=== PATIENT | female | born 2000 | race Caucasian/White ===

== ENCOUNTER 2023-07-15 13:23 | Day surgery (SDC) | payer OTHER, SELFPAY ==
--- NOTE | 2023-07-15 | MR_ITS ---
[address] [address] Patient Name: MARILEE MACKENZIE MRN: [id number] date: 2000 Sex: F Assigned Patient Location: MRI Current Patient Location: Accession/Order Number: [id number] Exam Date: 07/15/2023 14:40 Report Date: 07/15/2023 15:42 At the request of: LOUISE LEMOS Procedure: MR hip RT w con EXAMINATION: MR hip RT w con HISTORY: Right Hip Dysplasia, Right Hip Pain COMPARISON: ETT/ TECHNIQUE: A comprehensive examination was performed utilizing a variety of imaging planes and imaging parameters to optimize visualization of suspected pathology. Images were performed without contrast. FINDINGS: FEMORAL HEAD: Normal. No AVN, fracture, or significant arthropathy. ACETABULUM: Normal. No fracture or significant arthropathy. OTHER BONES: Normal appearance of the visualized portion of the pelvis. LABRUM: Normal appearance for a patient in this age group, with no visible tear. EFFUSIONS: None. No synovitis or loose bodies. BURSAE: Normal. No evidence of iliopsoas or trochanteric bursitis. TENDONS: Normal. Normal gluteus tendons, iliopsoas tendon, and hamstring origin. MUSCLES: Normal. No tear or strain. No inappropriate atrophy. OTHER: Negative. MR/MR hip RT w con IMPRESSION: No acute abnormality No evidence of developmental dysplasia Electronically authenticated by: GAGE LYNCH Date: 07/15/2023 15:42
--- NOTE | 2023-07-15 13:35 | FL_ITS ---
[address] [address] Patient Name: MARILEE MACKENZIE MRN: [id number] date: 2000 Sex: F Assigned Patient Location: MRI Current Patient Location: MRI Accession/Order Number: [id number] Exam Date: 07/15/2023 13:52 Report Date: 07/15/2023 15:03 At the request of: LOUISE LEMOS Procedure: FL arthrogram hip EXAMINATION: FL arthrogram hip, FL guided needle placement HISTORY: Right hip pain. Pre-MRI COMPARISON: No relevant comparison available. TECHNIQUE: An arthrogram was performed under fluoroscopic guidance using non-ionic contrast material in the usual sterile manner after obtaining informed consent. Standard level fluoroscopic mode of operation utilized. FINDINGS: JOINT: Right hip NEEDLE: 25 gauge, 5.5 spinal needle. MEDICATION: 10 mL injected into joint space consisting of a mixture of 10 cc normal saline, 5 cc Omnipaque-300, 5 cc 1% Xylocaine, and 0.2 cc Dotarem. 40 mg Kenalog TECHNIQUE: Anterior approach under fluoroscopic guidance. CLINICAL: 8 out of 10 before the injection. 4 out of 10 following the injection COMPLICATIONS: None. BONES: No fracture, significant osseous degenerative changes, or visible bone lesion. BURSA: No visible extension of contrast into the subacromial-subdeltoid bursa at this time. OTHER: Negative. FL/FL arthrogram hip IMPRESSION: 1. Technically successful arthrogram without complication. 2. Please see separate MRI report. Electronically authenticated by: GAGE LYNCH Date: 07/15/2023 15:03
--- NOTE | 2023-07-15 13:35 | FL_ITS ---
[address] [address] Patient Name: MARILEE MACKENZIE MRN: [id number] date: 2000 Sex: F Assigned Patient Location: MRI Current Patient Location: MRI Accession/Order Number: [id number] Exam Date: 07/15/2023 13:52 Report Date: 07/15/2023 15:03 At the request of: LOUISE LEMOS Procedure: FL guided needle placement EXAMINATION: FL arthrogram hip, FL guided needle placement HISTORY: Right hip pain. Pre-MRI COMPARISON: No relevant comparison available. TECHNIQUE: An arthrogram was performed under fluoroscopic guidance using non-ionic contrast material in the usual sterile manner after obtaining informed consent. Standard level fluoroscopic mode of operation utilized. FINDINGS: JOINT: Right hip NEEDLE: 25 gauge, 5.5 spinal needle. MEDICATION: 10 mL injected into joint space consisting of a mixture of 10 cc normal saline, 5 cc Omnipaque-300, 5 cc 1% Xylocaine, and 0.2 cc Dotarem. 40 mg Kenalog TECHNIQUE: Anterior approach under fluoroscopic guidance. CLINICAL: 8 out of 10 before the injection. 4 out of 10 following the injection COMPLICATIONS: None. BONES: No fracture, significant osseous degenerative changes, or visible bone lesion. BURSA: No visible extension of contrast into the subacromial-subdeltoid bursa at this time. OTHER: Negative. FL/FL guided needle placement IMPRESSION: 1. Technically successful arthrogram without complication. 2. Please see separate MRI report. Electronically authenticated by: GAGE LYNCH Date: 07/15/2023 15:03
[2023-07-15] MEDS: TRIAMCINOLONE ACETONIDE 40 MG/ML VIAL INJ (14:30)
[2023-07-15] MEDS: LIDOCAINE HCL 20 ML, SODIUM BICARBONATE 2 MEQ INJ (14:40)
--- NOTE | 2023-07-15 15:23 | SUR.PREOP ---
07/09/23 Pt instructed on procedure, date, time, and prep.
== END 2023-07-15 14:45 | disposition home or self-care (01) ==
PROVIDERS: Radiology Diagnostic Radiology; PCP Family Medicine; Visit Provider Family Medicine
DX: M25.551 Pain in right hip (principal)
CPT/HCPCS: 27093; 73722; 77002; A9575; Q9967

== ENCOUNTER 2023-07-19 10:58 | Outpatient (OUT) | payer OTHER, SELFPAY ==
--- NOTE | 2023-07-19 11:00 | NM_ITS ---
The [address] [address] Patient Name: MARILEE MACKENZIE MRN: [id number] date: 2000 Sex: F Assigned Patient Location: [place] Current Patient Location: [place] Accession/Order Number: [id number] Exam Date: 07/19/2023 11:00 Report Date: 07/19/2023 14:58 At the request of: LOUISE LEMOS Procedure: WA bone scan whole body EXAMINATION: WA bone scan whole body HISTORY: RIGHT HIP PAIN, BULGING LUMBAR DISC COMPARISON: No relevant comparison available. TECHNIQUE: After obtaining the patient's consent, 25.0 mCi Technetium 99m MDP was injected intravenously. Images were obtained approximately two hours later. FINDINGS: ABNORMALITIES: Abnormal radiotracer activity within the distal left tibia involving the plafond, and likely within the talar dome. OTHER: Negative. WA/WA bone scan whole body IMPRESSION: 1. No abnormal radiotracer involving the right hip. 2. Abnormal radiotracer within left ankle compatible with degenerative changes, also described on prior MRI study. Electronically authenticated by: ARTEM WILLS Date: 07/19/2023 14:58
--- OUTSIDE RECORDS SUMMARY | 2023-07-19 11:02 | XMS_ITS | CCD ---
Author Organization [facility] Care Team Providers Care Braid Maker Name Role Phone Louise Mccullough Primary Care Provider LOUISE MCCULLOUGH Primary Care Unavailable Louise Mccullough Primary Care Provider Louise Mccullough MD Primary Care Provider Louise Mccullough MD Primary Care Provider Louise Mccullough MD Primary Care Provider Louise Mccullough MD Primary Care Provider Louise Mccullough MD Primary Care Provider Louise Mccullough MD Primary Care Provider Louise Mccullough MD Primary Care Provider LOUISE MCCULLOUGH Primary Care Unavailable SHARONA HOFFMAN Referring Unavailable RK RENDON Attending Unavailab LOUISE Collazo Referring Unavailable LOUISE MCCULLOUGH Primary Care Unavailable LOUISE MCCULLOUGH Primary Care Unavailable SHARONA HOFFMAN Referring Unavailable SHARONA HOFFMAN Attending Unavailable Louise Mccullough MD Primary Care Provider DR LOUISE MUSTAFA Primary Care Unavailable JOELY ., DR GIL Consulting Unavailable HOY ., DR GIL Admitting Unavailable HOY ., DR GIL Attending Unavailable GAGE JACK Consulting Unavailable JOELY ., DR GIL Primary Care Unavailable HOY ., DR GIL Consulting Unavailable HOY ., DR GIL Admitting Unavailable HOY ., DR GIL Attending Unavailable DR GAGE LYNCH V Consulting Unavailable AMINTA ., DR GIL Primary Care Unavailable HOY ., DR GIL Admitting Unavailable HOY ., DR GIL Attending Unavailable HOY ., DR GIL Consulting Unavailable HOY ., DR GIL Admitting Unavailable HOY ., DR GIL Attending Unavailable HOY ., DR GIL Consulting Unavailable HOY ., DR GIL Primary Care Unavailable HOY ., DR GIL Admitting Unavailable HOY ., DR GIL Attending Unavailable HOY ., DR GIL Consulting Unavailable HOY ., DR GIL Primary Care Unavailable ELMA, DR ARTEM Cole Consulting Unavailable HOY ., DR GIL Admitting Unavailable HOY ., DR GIL Attending Unavailable HOY ., DR GIL Consulting Unavailable HOY ., DR GIL Primary Care Unavailable Refugio ARIAS, Larry Gloria Referring Unavailable Matheus Hernandez, Jackie Briggs Attending Unavailable Louise Mccullough MD Primary [facility] Unavailisak Payan PA-C, Kayleigh Stoner Attending Unavacrista Mccullough [facility], [facility] [place] [facility] Unavaila diana Mccullough MD, [facility] [place] [facility] Unavaila diana Hernandez, Jackie Briggs Attending Unavailable Louise Mccullough MD [facility] Unavaila diana Hernandez, Jackie Briggs Attending Unavailable Louise Mccullough MD [facility] Unavaila diana Hernandez, Jackie Briggs Attending Unavailable Larry Huff MD, Chi Attending Unavailable Louise Mccullough MD [facility] Unavailisak Huff MD, Larry Gloria Attending Unavailable Louise Mccullough MD Primary [facility] Unavailisak Huff MD, Larry Gloria Referring Unavailable Refugio ARIAS, Larry lGoria Attending Unavailable Louise Mccullough MD [facility] Unavailisak Huff MD, Larry Gloria Referring Unavailable Louise Mccullough MD [facility] UnavailLarry Trivedi MD, Chi Attending Unavailable HOY, LOUISE M Primary Care Unavailable HOY, LOUISE M Referring Unavailable HOY, LOUISE M Primary Care Unavailable HOY, LOUISE M Referring Unavailable HOY, LOUISE M Primary Care Unavailable HOY, LOUISE M Referring Unavailable HOY, LOUISE M Primary Care Unavailable HOY, LOUISE M Referring Unavailable HOY, LOUISE M Primary Care Unavailable HOY, LOUISE M Referring Unavailable HOY, LOUISE M Primary Care Unavailable HOY, LOUISE M Primary Care Unavailable HOY, LOUISE M Referring Unavailable HOY, LOUISE M Primary Care Unavailable HOY, LOUISE M Referring Unavailable Louise Mccullough MD Primary Care Provider [phone] Allergies Allergy Classification Reported Allergen(s) Allergy Type Date of Onset Reaction(s) Facility Anti-Epileptic Agents (5 sources) topiramate Drug Allergy 06-27-19 16 [facility] (16 sources) topiramate Drug Allergy 06-27-19 16 [facility] [place], [place] (3 sources) Hydrocortisone / Neomycin / Polymyxin B; Translations: [NEOMYCIN-POLYMYXI N-HC] Drug Allergy 03-11-20 13 Other: See Comments [facility] (1 source) topiramate; Translations: [Topamax] Drug Allergy [facility] (1 source) smoke; Translations: [smoke] Propensity to adverse reactions (disorder) [facility] (1 source) Grass; Translations: [Grass] Propensity to adverse reactions (disorder) [facility] Medications Current Medications Medication Drug Class(es) Dates Sig (Normalized) Sig (Original) amoxicillin 875 mg / clavulanate 125 mg oral tablet (1 source) Penicillin-class Antibacterial Start: 10-07-2021 End: 10-14-2021 take 1 tablet by mouth twice daily amoxicillin-clav ulanate (AUGMENTIN) 875-125 MG per tablet Take 1 tablet by mouth 2 times daily for 7 days 14 tablet 0 10/07/2021 10/14/2021 Active Completed/Discontinued Medications Medication Drug Class(es) Dates Sig (Normalized) Sig (Original) amLODIPine 5 mg oral tablet (1 source) Dihydropyridine Calcium Channel Nicki End: 06-13-2020 take 1 tablet by mouth once daily amLODIPine (NORVASC) 5 MG tablet Take 5 mg by mouth daily 0 06/13/2020 Discontinued (LIST CLEANUP) atorvastatin 80 mg oral tablet (1 source) HMG-CoA Reductase Inhibitor End: 06-13-2020 take 1 tablet by mouth once daily atorvastatin (LIPITOR) 80 MG tablet Take 80 mg by mouth daily 0 06/13/2020 Discontinued (LIST CLEANUP) cefdinir 300 mg oral capsule (1 source) Cephalosporin Antibacterial End: 10-07-2021 take 1 capsule by mouth twice daily cefdinir (OMNICEF) 300 MG capsule Take 300 mg by mouth 2 times daily 0 10/07/2021 Discontinued (LIST CLEANUP) celecoxib 200 mg oral capsule (4 sources) Nonsteroidal Anti-inflammatory Drug End: 06-13-2020 take 1 capsule by mouth once daily celecoxib (CELEBREX) 200 MG capsule Take 200 mg by mouth daily 0 06/13/2020 Discontinued (LIST CLEANUP) cholecalciferol 42637 unt oral capsule (5 sources) Vitamin D End: 06-13-2020 Cholecalciferol (VITAMIN D3) 96891 UNITS CAPS Take 2,000 capsules by mouth once a week 0 06/13/2020 Discontinued (Therapy completed) End: 06-13-2020 take 1 capsule by mouth once daily Cholecalciferol (VITAMIN D3) 50 MCG (2000 UT) CAPS Take 2,000 Units by mouth daily 0 06/13/2020 Discontinued (LIST CLEANUP) cyclobenzaprine hydrochloride 10 mg oral tablet (2 sources) Muscle Relaxant Start: 06-13-2020 End: 06-23-2020 cyclobenzaprine (FLEXERIL) tablet 10 mg DULoxetine 60 mg delayed release oral capsule (2 sources) Serotonin and Norepinephrine Reuptake Inhibitor Start: 12-18-2021 take 1 capsule by mouth once daily DULoxetine (CYMBALTA) 60 mg capsule Take 60 mg by mouth once daily. 0 12/18/2021 Active Comment on above: Take 60 mg by mouth once daily. EPINEPHrine 0.01 mg/ml / lidocaine hydrochloride 10 mg/ml injectable solution (1 source) Antiarrhythmic, alpha-Adrenergic Agonist, beta-Adrenergic Agonist, Catecholamine, Amide Local Anesthetic Start: 10-07-2021 End: 10-07-2021 lidocaine-EPINEPHrine 1 %-1:[id number] injection 20 mL gabapentin 400 mg oral capsule (1 source) Anti-epileptic Agent End: 06-13-2020 take 2 capsules by mouth twice daily gabapentin (NEURONTIN) 400 MG capsule Take 800 mg by mouth 2 times daily. 0 06/13/2020 Discontinued (LIST CLEANUP) guaiFENesin 20 mg/ml oral solution (1 source) End: 06-13-2020 take 200 mg by mouth three times daily as needed for cough guaiFENesin (ROBITUSSIN) 100 MG/5ML syrup Take 200 mg by mouth 3 times daily as needed for Cough 0 06/13/2020 Discontinued (LIST CLEANUP) hydroCHLOROthiazide 12.5 mg oral capsule (1 source) Thiazide Diuretic End: 06-13-2020 take 1 capsule by mouth once daily hydroCHLOROthiazide (MICROZIDE) 12.5 MG capsule Take 12.5 mg by mouth daily 0 06/13/2020 Discontinued ibuprofen 800 mg oral tablet (5 sources) Nonsteroidal Anti-inflammatory Drug Start: 01-05-2016 End: 06-13-2020 take 1 tablet by mouth every eight hours as needed for pain ibuprofen (ADVIL;MOTRIN) 800 MG tablet Take 1 tablet by mouth every 8 hours as needed for Pain 90 tablet 3 01/05/2016 06/13/2020 Discontinued (Therapy completed) End: 06-13-2020 take 1 tablet by mouth every six hours as needed for pain ibuprofen (ADVIL;MOTRIN) 600 MG tablet Take 600 mg by mouth every 6 hours as needed for Pain 0 06/13/2020 Discontinued (LIST CLEANUP) levoFLOXacin 500 mg oral tablet (1 source) Quinolone Antimicrobial End: 10-07-2021 take 1 tablet by mouth once daily levoFLOXacin (LEVAQUIN) 500 MG tablet Take 500 mg by mouth daily 0 10/07/2021 Discontinued (LIST CLEANUP) lidocaine 25 mg/ml / prilocaine 25 mg/ml topical cream (1 source) Antiarrhythmic, Amide Local Anesthetic Start: 10-07-2021 End: 10-07-2021 lidocaine-prilocai ne (EMLA) cream Start: 10-07-2021 End: 10-07-2021 lidocaine-prilocaine (EMLA) cream 1 ml LORazepam 2 mg/ml injection (2 sources) Benzodiazepine Start: 10-07-2021 End: 10-07-2021 LORazepam (ATIVAN) injection 0.5 mg metFORMIN hydrochloride 500 mg oral tablet (4 sources) Biguanide Start: 03-05-2013 METFORMIN 500 mg tablet End: 06-13-2020 take 1 tablet by mouth twice daily at mealtime metFORMIN (GLUCOPHAGE) 1000 MG tablet Take 1,000 mg by mouth 2 times daily (with meals) 0 06/13/2020 Discontinued (LIST CLEANUP) Sodium Chloride (2 sources) Start: 10-07-2021 End: 10-07-2021 0.9 % sodium chloride IV arun us 2,586 mL Start: 10-07-2021 0.9 % sodium c hloride infusion 60 actuat tiotropium 0.0025 mg/actuat metered dose inhaler (1 source) Anticholinergic End: 06-13-2020 take 2 puff(s) by inhalation once daily tiotropium (SPIRIVA RESPIMAT) 2.5 MCG/ACT AERS inhaler Inhale 2 puffs into the lungs daily 0 06/13/2020 Discontinued (LIST CLEANUP) vancomycin (VANCOCIN) 1,500 mg in dextrose 5 % 500 mL IVPB (1 source) Start: 10-07-2021 End: 10-07-2021 vancomycin (VANCOCIN) 1,500 mg in dextrose 5 % 500 mL IVPB Problems Active Problems Problem Classification Problem Date Documented Date Episodic/Chronic Attention-deficit, conduct, and disruptive behavior disorders (2 sources) Attention-deficit hyperactivity disorder, unspecified type; Translations: [Attention-deficit hyperactivity disorder, unspecified type] Onset: 06-27-2023 Chronic Chronic kidney disease (1 source) Chronic kidney disease, unspecified; Translations: [CHRONIC KIDNEY DISEASE UNSPECIFIED] Onset: 01-16-2022 Chronic Deficiency and other anemia (3 sources) Anemia, unspecified; Translations: [ANEMIA UNSPECIFIED] Onset: 01-16-2022 Episodic Diseases of white blood cells (1 source) Leukocytosis; Translations: [Elevated white blood cell count, unspecified] Chronic Nutritional deficiencies (2 sources) Vitamin D deficiency, unspecified; Translations: [Vitamin D deficiency, unspecified] Onset: 06-27-2023 Chronic Osteoarthritis (4 sources) Localized, secondary osteoarthritis of the ankle and/or foot; Translations: [Secondary osteoarthritis, left ankle and foot] Onset: 01-09-2023 Chronic Other acquired deformities (2 sources) Deformity of lower limb; Translations: [Other specified acquired deformities of unspecified lower leg] Onset: 03-09-2022 Episodic Other bone disease and musculoskeletal deformities (2 sources) Osteochondritis dissecans of left ankle; Translations: [Osteochondritis dissecans, left ankle and joints of left foot] Chronic Other bone disease and musculoskeletal deformities (1 source) Osteochondritis dissecans; Translations: [Osteochondritis dissecans, unspecified ankle and joints of foot] Chronic Other bone disease and musculoskeletal deformities (2 sources) Disorder of bone; Translations: [Disorder of bone, unspecified] Onset: 03-09-2022 Episodic Other congenital anomalies (2 sources) Congenital genu valgum of bilateral knees; Translations: [Congenital malformation of knee] Onset: 03-09-2022 Chronic Other connective tissue disease (2 sources) Peroneal tendinitis of right lower limb; Translations: [Peroneal tendinitis, right leg] Onset: 03-09-2022 Episodic Other diseases of bladder and urethra (4 sources) Bladder-neck obstruction; Translations: [BLADDER-NECK OBSTRUCTION] Onset: 10-27-2021 Chronic Other liver diseases (2 sources) Steatosis of liver; Translations: [Fatty (change of) liver, not elsewhere classified] Onset: 06-14-2013 06-14-2013 Chronic Other nervous system disorders (2 sources) Abnormal gait; Translations: [Unspecified abnormalities of gait and mobility] Onset: 03-09-2022 Episodic Other non-traumatic joint disorders (1 source) Chronic ankle pain; Translations: [Pain in right ankle and joints of right foot] Episodic Other non-traumatic joint disorders (2 sources) Ankle pain; Translations: [Pain in right ankle and joints of right foot] Onset: 03-09-2022 Episodic Other non-traumatic joint disorders (2 sources) Sinus tarsi syndrome of right ankle; Translations: [Pain in right ankle and joints of right foot] Onset: 03-09-2022 Episodic Other non-traumatic joint disorders (1 source) Pain of right wrist; Translations: [Pain in right wrist] Episodic Other non-traumatic joint disorders (3 sources) Pain in right hip; Translations: [Pain in right hip] Onset: 06-27-2023 Episodic Other nutritional; endocrine; and metabolic disorders (2 sources) Obesity, unspecified; Translations: [Obesity, unspecified] Onset: 06-27-2023 Chronic Residual codes; unclassified (1 source) H/O: miscarriage; Translations: [Personal history of other complications of , childbirth and the puerperium] Episodic Residual codes; unclassified (1 source) Pain; Translations: [Pain, unspecified] Episodic Residual codes; unclassified (2 sources) Insomnia, unspecified; Translations: [Insomnia, unspecified] Onset: 06-27-2023 Episodic Retinal detachments; defects; vascular occlusion; and retinopathy (2 sources) Retinal dystrophy; Translations: [Unspecified hereditary retinal dystrophy] Onset: 06-14-2013 06-14-2013 Chronic Skin and subcutaneous tissue infections (1 source) Abscess; Translations: [Cutaneous abscess, unspecified] Episodic Spondylosis; intervertebral disc disorders; other back problems (1 source) Low back pain; Translations: [Low back pain, unspecified back pain laterality, unspecified chronicity, unspecified whether sciatica present] Episodic Unclassified (1 source) Sprain of tibiofibular ligament of left ankle; Translations: [Sprain of tibiofibular ligament of left ankle, sequela] Unclassified (1 source) Strain of left trapezius muscle; Translations: [Trapezius strain, left, initial encounter] Past or Other Problems Problem Classification Problem Date Documented Date Episodic/Chronic Abdominal pain (1 source) Unspecified abdominal pain; Translations: [UNSPECIFIED ABDOMINAL PAIN] Onset: 11-25-2021 Episodic Genitourinary symptoms and ill-defined conditions (9 sources) Retention of urine; Translations: [Retention of urine, unspecified] Onset: 11-02-2021 Episodic Other connective tissue disease (3 sources) Pain in left foot; Translations: [Pain in left foot] Onset: 09-12-2022 Episodic Other non-traumatic joint disorders (1 source) Acute ankle pain; Translations: [Acute left ankle pain] Episodic Other non-traumatic joint disorders (6 sources) Pain in right ankle and joints of right foot; Translations: [Right ankle pain, unspecified chronicity] Onset: 01-16-2022 Episodic Other non-traumatic joint disorders (3 sources) Pain in left ankle and joints of left foot; Translations: [Pain in left ankle and joints of left foot] Onset: 09-12-2022 Episodic Other screening for suspected conditions (not mental disorders or infectious disease) (2 sources) Increased lactic acid level; Translations: [Other specified abnormal findings of blood chemistry] Onset: 01-22-2022 Episodic Otitis media and related conditions (20 sources) Otitis media; Translations: [Unspecified nonsuppurative otitis media, unspecified ear] Onset: 12-03-2013 12-03-2013 Episodic Urinary tract infections (7 sources) Urinary tract infectious disease; Translations: [Urinary tract infection, site not specified] Onset: 11-21-2021 Episodic Results Test Name Value Interpretation Reference Range Facility Cortisolon 06-28-2023 Cortisol 12.6 ug/dL Normal 2.5-19.5 [facility] Comment on above: Result Comment: Cortisol Reference Range: AM 6.0-18.4 PM 2.7-10.5 Performed By: #### V D25, FE, T4, GLYHGB, FT3, CORTI, LIPR, INSU ####[facility] [address] [place] [address] Lab Director: Bala Borges MD#### CP, TSH, CDP ####[address] [place], [place] [id number] Lab Director: Gage Barraza MD Hemoglobin A1Con 06-28-2023 Glucose [Mass/Vol] 100 mg/dL [facility] Comment on above: Result Comment: The ADA and AACC recommend providing the estimated average glucose result to permit better patient understanding of their HBA1c result. Performed By: #### V D25, FE, T4, GLYHGB, FT3, CORTI, LIPR, INSU ####[facility] [address] [place] [id number] Lab Director: Bala Borges MD#### CP, TSH, CDP ####[address] [place] [address] Lab Director: Gage Barraza MD HbA1c (Bld) [Mass fraction] 5.1 % Normal 4.0-6.0 [facility] Comment on above: Performed By: #### V D25, FE, T4, GLYHGB, FT3, CORTI, LIPR, INSU ####[id number] [place] [address] Lab Director: Bala Borges MD#### CP, TSH, CDP ####[address] , [place] [id number] Lab Director: Gage Barraza MD Insulinon 5 Insulin 18.2 mU/L [facility] Comment on above: Performed By: #### V D25, FE, T4, GLYHGB, FT3, CORTI, LIPR, INSU ####[facility] [address] [place] [address] Lab Director: Bala Borges MD#### CP, TSH, CDP ####[facility] [place], [place] [id number] [facility] Director: Gage Barraza MD Reference Range Normal [facility] Comment on above: Result Comment: Fast in.6-24.9 30 min: 20-112 60 min: 29-88 90 min: 26-84 120 min: 22-79 Performed By: #### V D25, FE, T4, GLYHGB, FT3, CORTI, LIPR, INSU ####[id number] [place], [place] [id number] Lab Director: Bala Borges MD#### CP, TSH, CDP ####[address] [place], [place] [phone] [facility] Director: Gage Barraza MD Ironon 06-28-2023 Iron [Mass/Vol] 53 ug/dL Normal 37-145 [facility] Comment on above: Performed By: #### V D25, FE, T4, GLYHGB, FT3, CORTI, LIPR, INSU #### [id number] [place] [address] Velvet Steamer: Bala Borges MD #### CP, TSH, CDP #### [address] [place], [place] [phone] Velvet Steamer: Gage Barraza MD Lipid Profileon 3 Cholesterol [Mass/Vol] 189 mg/dL Normal <200 [facility] Comment on above: Result Comment: Cholesterol Guidelines: <200 Desirable 200-240 Borderline >240 Undesirable Performed By: #### V D25, FE, T4, GLYHGB, FT3, CORTI, LIPR, INSU ####[facility] [place] [address] Lab Director: Bala Borges MD#### CP, TSH, CDP ####[address] [place], [place] [phone] Lab Director: Gage Barraza MD Cholesterol in HDL [Mass/Vol] 34 mg/dL Low >40 [facility] Comment on above: Result Comment: HDL Guidelines: <40 Undesirable 40-59 Borderline >59 Desirable Performed By: #### V D25, FE, T4, GLYHGB, FT3, CORTI, LIPR, INSU ####[facility] [address] [place] [address] Lab Director: Bala Borges MD#### CP, TSH, CDP ####[address] [place], [place] [id number] Lab Director: Gage Barraza MD Cholesterol in LDL [Mass/Vol] 122 mg/dL Normal 0-130 [facility] Comment on above: Result Comment: LDL Guidelines: <100 Desirable 100-129 Near to/above Desirable 130-159 Borderline >159 Undesirable Direct (measured) LDL and calculated LDL are not interchangeable tests. Performed By: #### V D25, FE, T4, GLYHGB, FT3, CORTI, LIPR, INSU ####[facility] [address] [place] [address] Lab Director: Bala Borges MD#### CP, TSH, CDP ####[address] [place], [place] [phone] Lab Director: Gage Barraza MD Cholesterol.total/Chol esterol in HDL [Mass ratio] 5.6 {ratio} High <5 [facility] Comment on above: Performed By: #### V D25, FE, T4, GLYHGB, FT3, CORTI, LIPR, INSU ####[facility] [address] [place] [address] Lab Director: Bala Borges MD#### CP, TSH, CDP ####[address] [place], [place] [phone] Lab Director: Gage Barraza MD Triglyceride [Mass/Vol] 164 mg/dL High <150 [facility] Comment on above: Result Comment: Triglyceride Guidelines: <150 Desirable 150-199 Borderline 200-499 High >499 Very high Based on AHA Guidelines for fasting triglyceride, January 2012. Performed By: #### V D25, FE, T4, GLYHGB, FT3, CORTI, LIPR, INSU ####[facility] [place], [place] [phone] Director: Bala Borges MD#### CP, TSH, CDP ####[address] [place], [place] [id number] Lab Director: Gage Barraza MD T3, Freeon 06-28-2023 Free T3 [Mass/Vol] 3.65 pg/mL Normal 2.02-4.43 [facility] Comment on above: Performed By: #### V D25, FE, T4, GLYHGB, FT3, CORTI, LIPR, INSU ####[facility] [address] [place], [place] [phone] Director: Bala Borges MD#### CP, TSH, CDP ####[address] , [place] [id number] Lab Director: Gage Barraza MD Thyroxine T4on 06-28-2023 T4 [Mass/Vol] 9.1 ug/dL Normal 4.5-11.7 [facility] Comment on above: Performed By: #### V D25, FE, T4, GLYHGB, FT3, CORTI, LIPR, INSU ####[facility] [address] [place], [place] [phone] Director: Bala Borges MD#### CP, TSH, CDP ####[address] , [place] [phone] Lab Director: Gage Barraza MD Vitamin D 25 [place]on 06-28-2023 Vitamin D 25 [place] 23.6 ng/mL Low >29.9 [facility] Comment on above: Result Comment: Reference Range: Vitamin D status Range Deficiency <20 ng/mL Mild Deficiency 20-30 ng/mL Sufficiency 30-100 ng/mL Toxicity >100 ng/mL Performed By: #### V D25, FE, T4, GLYHGB, FT3, CORTI, LIPR, INSU ####[facility] [place] [address] Lab Director: Bala Borges MD#### CP, TSH, CDP ####[facility] [place] [address] Lab Director: Gage Barraza MD XR HIP RIGHT (2-3 VIEWS)on 0 06-28-2023 XR HIP RIGHT (2-3 VIEWS) EXAMINATION: TWO XRAY VIEWS OF THE RIGHT HIP AND FRONTAL VIEWS OF THE PELVIS 06/27/2023 8:48 am COMPARISON: None. HISTORY: ORDERING SYSTEM PROVIDED HISTORY: Right hip pain FINDINGS: No acute fracture or dislocation. Joint spaces appear preserved. Bony mineralization is within normal limits. No periarticular calcifications. IMPRESSION: No acute radiographic abnormality of the right hip. Interpreted by: Madhavi Bhakta DO Signed by: Madhavi Bhakta DO 06/28/23 Final result Normal [facility] CBC with Diffon 06-27-2023 Abs. Basophil 0.03 k/uL Normal 0.00-0.20 [facility] Comment on above: Performed By: #### V D25, FE, T4, GLYHGB, FT3, CORTI, LIPR, INSU #### [facility] [employer] [address] [place] [address] Velvet Steamer: Bala Borges MD #### CP, TSH, CDP #### [facility] [address] [place] [address] Velvet Steamer: Gage Barraza MD Abs.Imm.Granulocyte 0.03 k/uL Normal 0.00-0.30 [facility] Comment on above: Performed By: #### V D25, FE, T4, GLYHGB, FT3, CORTI, LIPR, INSU #### [address] [address] Velvet Steamer: Bala Borges MD #### CP, TSH, CDP #### [address] [place] [phone] Velvet Steamer: Gage Barraza MD Abs.Neutrophil (Seg) 5.65 k/uL Normal 1.80-8.00 [facility] Comment on above: Performed By: #### V D25, FE, T4, GLYHGB, FT3, CORTI, LIPR, INSU #### [address] [address] Velvet Steamer: Bala Borges MD #### CP, TSH, CDP #### [address] [place] [phone] Velvet Steamer: Gage Barraza MD Basophils/100 WBC (Bld) 0 % Normal 0-2 [facility] Comment on above: Performed By: #### V D25, FE, T4, GLYHGB, FT3, CORTI, LIPR, INSU #### [place] [address] Velvet Steamer: Bala Borges MD #### CP, TSH, CDP #### [address] [place] [phone] Velvet Steamer: Gage Barraza MD Eosinophils (Bld) [#/Vol] 0.16 10*3/uL Normal 0.00-0.44 [facility] Comment on above: Performed By: #### V D25, FE, T4, GLYHGB, FT3, CORTI, LIPR, INSU #### [address] [address] Velvet Steamer: Bala Borges MD #### CP, TSH, CDP #### [address] [place] [phone] [employer] Steamer: Gage Barraza MD Eosinophils/100 WBC (Bld) 2 % Normal 1-4 [facility] Comment on above: Performed By: #### V D25, FE, T4, GLYHGB, FT3, CORTI, LIPR, INSU #### [id number] [place], [place] [phone] Velvet Steamer: Bala Borges MD #### CP, TSH, CDP #### [address] [place], [place] [phone] Velvet Steamer: Gage Barraza MD Erythrocyte distribution width (RBC) [Ratio] 13.6 % Normal 11.8-14.4 [facility] Comment on above: Performed By: #### V D25, FE, T4, GLYHGB, FT3, CORTI, LIPR, INSU #### [address] [id number] Velvet Steamer: Bala Borges MD #### CP, TSH, CDP #### [address] [place] [address] Velvet Steamer: Gage Barraza MD Hematocrit (Bld) [Volume fraction] 38.8 % Normal 36.3-47.1 [facility] Comment on above: Performed By: #### V D25, FE, T4, GLYHGB, FT3, CORTI, LIPR, INSU #### [address] [id number] Velvet Steamer: Bala Borges MD #### CP, TSH, CDP #### [address] [place] [address] Velvet Steamer: Gage Barraza MD Hemoglobin (Bld) [Mass/Vol] 13.0 g/dL Normal 11.9-15.1 [facility] Comment on above: Performed By: #### V D25, FE, T4, GLYHGB, FT3, CORTI, LIPR, INSU #### [address] [address] Velvet Steamer: Bala Borges MD #### CP, TSH, CDP #### [address] [place] [phone] Velvet Steamer: Gage Barraza MD Immature granulocytes/100 WBC (Bld) 0 % Normal 0 [facility] Comment on above: Performed By: #### V D25, FE, T4, GLYHGB, FT3, CORTI, LIPR, INSU #### [address] [address] Velvet Steamer: Bala Borges MD #### CP, TSH, CDP #### [address] [place] [phone] Velvet Steamer: Gage Barraza MD Lymphocytes (Bld) [#/Vol] 3.03 10*3/uL Normal 1.20-5.20 [facility] Comment on above: Performed By: #### V D25, FE, T4, GLYHGB, FT3, CORTI, LIPR, INSU #### [address] [address] Velvet Steamer: Bala Borges MD #### CP, TSH, CDP #### [address] [place] [phone] Velvet Steamer: Gage Barraza MD Lymphocytes/100 WBC (Bld) 31 % Normal 25-45 [facility] Comment on above: Performed By: #### V D25, FE, T4, GLYHGB, FT3, CORTI, LIPR, INSU #### [address] [address] Velvet Steamer: Bala Borges MD #### CP, TSH, CDP #### [address] [place] [phone] Velvet Steamer: Gage Barraza MD MCH (RBC) [Entitic mass] 28.0 pg Normal 25.2-33.5 [facility] Comment on above: Performed By: #### V D25, FE, T4, GLYHGB, FT3, CORTI, LIPR, INSU #### [address] [phone] Velvet Steamer: Bala Borges MD #### CP, TSH, CDP #### [address] [place] [address] Velvet Steamer: Gage Barraza MD MCHC (RBC) [Mass/Vol] 33.5 g/dL Normal 28.4-34.8 [facility] Comment on above: Performed By: #### V D25, FE, T4, GLYHGB, FT3, CORTI, LIPR, INSU #### [address] [address] Velvet Steamer: Bala Borges MD #### CP, TSH, CDP #### [address] [place] [phone] Velvet Steamer: Gage Barraza MD MCV (RBC) [Entitic vol] 83.6 fL Normal 82.6-102.9 [facility] Comment on above: Performed By: #### V D25, FE, T4, GLYHGB, FT3, CORTI, LIPR, INSU #### [address] 1080208 Velvet Steamer: Bala Borges MD #### CP, TSH, CDP #### [address] [place] [facility] Velvet Steamer: Gage Barraza MD Monocytes (Bld) [#/Vol] 0.79 10*3/uL Normal 0.10-1.40 [facility] Comment on above: Performed By: #### V D25, FE, T4, GLYHGB, FT3, CORTI, LIPR, INSU #### [address] [address] Velvet Steamer: Bala Borges MD #### CP, TSH, CDP #### [address] [place], [place] [phone] Velvet Steamer: Gage Barraza MD Monocytes/100 WBC (Bld) 8 % Normal 2-8 [facility] Comment on above: Performed By: #### V D25, FE, T4, GLYHGB, FT3, CORTI, LIPR, INSU #### [address] [address] Velvet Steamer: Bala Borges MD #### CP, TSH, CDP #### [address] [place] [phone] Velvet Steamer: Gage Barraza MD Neutrophil (Seg) 59 % Normal 34-64 [facility] Comment on above: Performed By: #### V D25, FE, T4, GLYHGB, FT3, CORTI, LIPR, INSU #### [address] [address] Velvet Steamer: Bala Borges MD #### CP, TSH, CDP #### [address] [place], [place] [phone] Velvet Steamer: Gage Barraza MD NRBC Automated 0.0 per 100 WBC Normal 0.0 [facility] Comment on above: Performed By: #### V D25, FE, T4, GLYHGB, FT3, CORTI, LIPR, INSU #### [address] [address] Velvet Steamer: Bala Borges MD #### CP, TSH, CDP #### [facility] [address] [place], [place] [phone] Velvet Steamer: Gage Barraza MD Platelet mean volume (Bld) [Entitic vol] 10.2 fL Normal 8.1-13.5 [facility] Comment on above: Performed By: #### V D25, FE, T4, GLYHGB, FT3, CORTI, LIPR, INSU #### [address] [address] Velvet Steamer: Bala Borges MD #### CP, TSH, CDP #### [address] [place] [address] Velvet Steamer: Gage Barraza MD Platelets (d) [#/Vol] 326 10*3/uL Normal 138-453 [facility] Comment on above: Performed By: #### V D25, FE, T4, GLYHGB, FT3, CORTI, LIPR, INSU #### [address] [address] Velvet Steamer: Bala Borges MD #### CP, TSH, CDP #### [address] [place] [address] Velvet Steamer: Gage Barraza MD RBC (d) [#/Vol] 4.64 10*6/uL Normal 3.95-5.11 [facility] Comment on above: Performed By: #### V D25, FE, T4, GLYHGB, FT3, CORTI, LIPR, INSU #### [address] [address] Velvet Steamer: Bala Borges MD #### CP, TSH, CDP #### [address] [place] [address] Velvet Steamer: Gage Barraza MD WBC (d) [#/Vol] 9.7 10*3/uL Normal 4.5-13.5 [facility] Comment on above: Performed By: #### V D25, FE, T4, GLYHGB, FT3, CORTI, LIPR, INSU #### [address] [address] Velvet Steamer: Bala Borges MD #### CP, TSH, CDP #### [address] [place], [place] [phone] Velvet Steamer: Gage Barraza MD Comp Metabolic Profon 2023 Albumin [Mass/Vol] 4.2 g/dL Normal 3.5-5.2 [facility] Comment on above: Performed By: #### V D25, FE, T4, GLYHGB, FT3, CORTI, LIPR, INSU #### [address] [address] Velvet Steamer: Bala Borges MD #### CP, TSH, CDP #### [address] [place], [place] [phone] Velvet Steamer: Gage Barraza MD Albumin/Glob Ratio 1.4 Normal 1.0-2.5 [facility] Comment on above: Performed By: #### V D25, FE, T4, GLYHGB, FT3, CORTI, LIPR, INSU #### [address] [address] Velvet Steamer: Bala Borges MD #### CP, TSH, CDP #### [address] [place], [place] [phone] Velvet Steamer: Gage Barraza MD Alkaline Phos 67 U/L Normal 35-104 [facility] Comment on above: Performed By: #### V D25, FE, T4, GLYHGB, FT3, CORTI, LIPR, INSU #### [address] [address] Velvet Steamer: Bala Borges MD #### CP, TSH, CDP #### [address] [place], [place] [phone] Velvet Steamer: Gage Barraza MD ALT [Catalytic activity/Vol] 69 U/L High 5-33 [facility] Comment on above: Performed By: #### V D25, FE, T4, GLYHGB, FT3, CORTI, LIPR, INSU #### [address] [address] Velvet Steamer: Bala Borges MD #### CP, TSH, CDP #### [address] [place], [place] [phone] Velvet Steamer: Gage Barraza MD Anion gap [Moles/Vol] 9 mmol/L Normal 9-17 [facility] Comment on above: Performed By: #### V D25, FE, T4, GLYHGB, FT3, CORTI, LIPR, INSU #### [address] [address] Velvet Steamer: Bala Borges MD #### CP, TSH, CDP #### [address] [place], [place] 0196583 Velvet Steamer: Gage Barraza MD AST [Catalytic activity/Vol] 75 U/L High <32 [facility] Comment on above: Performed By: #### V D25, FE, T4, GLYHGB, FT3, CORTI, LIPR, INSU #### [address] [address] Velvet Steamer: Bala Borges MD #### CP, TSH, CDP #### [address] [place], [place] [phone] Velvet Steamer: Gage Barraza MD Bilirubin [Mass/Vol] 0.4 mg/dL Normal 0.3-1.2 [facility] Comment on above: Performed By: #### V D25, FE, T4, GLYHGB, FT3, CORTI, LIPR, INSU #### [address] [address] Velvet Steamer: Bala Borges MD #### CP, TSH, CDP #### [address] [place], [place] [phone] Velvet Steamer: Gage Barraza MD BUN/CRE Ratio 18 Normal 9-20 [facility] Comment on above: Performed By: #### V D25, FE, T4, GLYHGB, FT3, CORTI, LIPR, INSU #### [address] [phone] Velvet Steamer: Bala Borges MD #### CP, TSH, CDP #### [address] [place] [address] Velvet Steamer: Gage Barraza MD Calcium [Mass/Vol] 9.0 mg/dL Normal 8.6-10.4 [facility] Comment on above: Performed By: #### V D25, FE, T4, GLYHGB, FT3, CORTI, LIPR, INSU #### [address] [address] Velvet Steamer: Bala Borges MD #### CP, TSH, CDP #### [address] [place] [address] Velvet Steamer: Gage Barraza MD Chloride [Moles/Vol] 102 mmol/L Normal 98-107 [facility] Comment on above: Performed By: #### V D25, FE, T4, GLYHGB, FT3, CORTI, LIPR, INSU #### [address] [address] Velvet Steamer: Bala Borges MD #### CP, TSH, CDP #### [address] [place] [address] Velvet Steamer: Gage Barraza MD CO2 [Moles/Vol] 24 mmol/L Normal 20-31 [facility] Comment on above: Performed By: #### V D25, FE, T4, GLYHGB, FT3, CORTI, LIPR, INSU #### [facility] [address] [place] [address] Velvet Steamer: Bala Borges MD #### CP, TSH, CDP #### [facility] [address] [place] [address] Dr. [place], [place] [phone] Velvet Steamer: Gage Barraza MD Creatinine [Mass/Vol] 0.5 mg/dL Normal 0.5-0.9 [facility] Comment on above: Performed By: #### V D25, FE, T4, GLYHGB, FT3, CORTI, LIPR, INSU #### [address] [place] [address] Velvet Steamer: Bala Borges MD #### CP, TSH, CDP #### [address] [place] [address] Velvet Steamer: Gage Barraza MD GFR/1.73 sq M.predicted among non-blacks MDRD (S/P/Bld) [Vol rate/Area] mL/min/{1.73_m2} Normal >60 [facility] Comment on above: Result Comment: These results are not intended for use in patients <18 years of age. eGFR results are calculated without a race factor using the 2020 CKD-EPI equation. Careful clinical correlation is recommended, particularly when comparing to results calculated using previous equations. The CKD-EPI equation is less accurate in patients with extremes of muscle mass, extra-renal metabolism of creatine, excessive creatine ingestion, or following therapy that affects renal tubular secretion. Performed By: #### V D25, FE, T4, GLYHGB, FT3, CORTI, LIPR, INSU #### [facility] [address] [place], [place] [phone] Velvet Steamer: Bala Borges MD #### CP, TSH, CDP #### [facility] [address] [place] [address] [place] [address] Velvet Steamer: Gage Barraza MD Glucose [Mass/Vol] 84 mg/dL Normal 70-99 [facility] Comment on above: Performed By: #### V D25, FE, T4, GLYHGB, FT3, CORTI, LIPR, INSU #### [address] [address] Velvet Steamer: Bala Borges MD #### CP, TSH, CDP #### [address] [place], [place] [phone] Velvet Steamer: Gage Barraza MD Potassium [Moles/Vol] 4.1 mmol/L Normal 3.7-5.3 [facility] Comment on above: Performed By: #### V D25, FE, T4, GLYHGB, FT3, CORTI, LIPR, INSU #### [address] [address] Velvet Steamer: Bala Borges MD #### CP, TSH, CDP #### [address] [place], [place] [phone] Velvet Steamer: Gage Barraza MD Protein [Mass/Vol] 7.2 g/dL Normal 6.4-8.3 [facility] Comment on above: Performed By: #### V D25, FE, T4, GLYHGB, FT3, CORTI, LIPR, INSU #### [address] [address] Velvet Steamer: Bala Borges MD #### CP, TSH, CDP #### [address] [place], [place] 1860083 Velvet Steamer: Gage Barraza MD Sodium [Moles/Vol] 135 mmol/L Normal 135-144 [facility] Comment on above: Performed By: #### V D25, FE, T4, GLYHGB, FT3, CORTI, LIPR, INSU #### [address] [address] Velvet Steamer: Bala Borges MD #### CP, TSH, CDP #### [facility] [address] [place] [address] [place] [address] Velvet Steamer: Gage Barraza MD Urea nitrogen [Mass/Vol] 9 mg/dL Normal 6-20 [facility] Comment on above: Performed By: #### V D25, FE, T4, GLYHGB, FT3, CORTI, LIPR, INSU #### [address] [address] Velvet Steamer: Bala Borges MD #### CP, TSH, CDP #### [address] [place] [address] Velvet Steamer: Gage Barraza MD Thyroid Stim. Horm.on 2023 Thyroid Stim. Horm. 2.74 uIU/mL Normal 0.30-5.00 [facility] Comment on above: Performed By: #### V D25, FE, T4, GLYHGB, FT3, CORTI, LIPR, INSU #### [address] [address] Velvet Steamer: Bala Borges MD #### CP, TSH, CDP #### [address] [place] [address] Velvet Steamer: Gage Barraza MD CBCon 01-09-2023 Erythrocyte distribution width (RBC) [Ratio] 13.4 % Normal 11.8-14.4 [facility] Comment on above: Performed By: #### V D25 #### [address] [address] Velvet Steamer: Bala Borges MD #### CP, CBC #### [address] [place] [address] Velvet Steamer: Gage Barraza MD Hematocrit (Bld) [Volume fraction] 39.6 % Normal 36.3-47.1 [facility] Comment on above: Performed By: #### V D25 #### [address] [place] [address] Velvet Steamer: Bala Borges MD #### CP, CBC #### [address] [place] [address] Velvet Steamer: Gage Barraza MD Hemoglobin (Bld) [Mass/Vol] 13.4 g/dL Normal 11.9-15.1 [facility] Comment on above: Performed By: #### V D25 #### [address] [id number] Velvet Steamer: Bala Borges MD #### CP, CBC #### [address] [place] [address] Velvet Steamer: Gage Barraza MD MCH (RBC) [Entitic mass] 27.9 pg Normal 25.2-33.5 [facility] Comment on above: Performed By: #### V D25 #### [address] [address] Velvet Steamer: Bala Borges MD #### CP, CBC #### [address] [place] [address] Velvet Steamer: Gage Barraza MD MCHC (RBC) [Mass/Vol] 33.8 g/dL Normal 28.4-34.8 [facility] Comment on above: Performed By: #### V D25 #### [address] [address] Velvet Steamer: Bala Borges MD #### CP, CBC #### [address] [place] [address] Velvet Steamer: Gage Barraza MD MCV (RBC) [Entitic vol] 82.5 fL Low 82.6-102.9 [facility] Comment on above: Performed By: #### V D25 #### [address] [address] Velvet Steamer: Bala Borges MD #### CP, CBC #### [address] [place], [place] [phone] Velvet Steamer: Gage Barraza MD NRBC Automated 0.0 per 100 WBC Normal 0.0 [facility] Comment on above: Performed By: #### V D25 #### [address] [address] Velvet Steamer: Bala Borges MD #### CP, CBC #### [address] [place] [phone] Velvet Steamer: Gage Barraza MD Platelet mean volume (Bld) [Entitic vol] 10.4 fL Normal 8.1-13.5 [facility] Comment on above: Performed By: #### V D25 #### [address] [address] Velvet Steamer: Bala Borges MD #### CP, CBC #### [address] [place], [place] [phone] Velvet Steamer: Gage Barraza MD Platelets (Bld) [#/Vol] 333 10*3/uL Normal 138-453 [facility] Comment on above: Performed By: #### V D25 #### [address] [address] Velvet Steamer: Bala Borges MD #### CP, CBC #### [address] [place], [place] 8702483 Velvet Steamer: Gage Barraza MD RBC (Bld) [#/Vol] 4.80 10*6/uL Normal 3.95-5.11 [facility] Comment on above: Performed By: #### V D25 #### [address] [address] Velvet Steamer: Bala Borges MD #### CP, CBC #### [facility] [address] [place] [address] Velvet Steamer: Gage Barraza MD WBC (Bld) [#/Vol] 10.7 10*3/uL Normal 4.5-13.5 [facility] Comment on above: Performed By: #### V D25 #### [address] [address] Velvet Steamer: Bala Borges MD #### CP, CBC #### [address] [place] [address] Velvet Steamer: Gage Barraaz MD Comp Metabolic Profon 2022 Albumin [Mass/Vol] 4.8 g/dL Normal 3.5-5.2 [facility] Comment on above: Performed By: #### V D25 #### [address] [address] Velvet Steamer: Bala Borges MD #### CP, CBC #### [address] [place] [address] Velvet Steamer: Gage Barraza MD Albumin/Glob Ratio 1.5 Normal 1.0-2.5 [facility] Comment on above: Performed By: #### V D25 #### [address] [address] Velvet Steamer: Bala Borges MD #### CP, CBC #### [facility] [address] [place] [address] Velvet Steamer: Gage Barraza MD Alkaline Phos 72 U/L Normal 35-104 [facility] Comment on above: Performed By: #### V D25 #### [address] [address] Velvet Steamer: Blaa Borges MD #### CP, CBC #### [facility] [address] [place], [place] [phone] Velvet Steamer: Gage Barraza MD ALT [Catalytic activity/Vol] 30 U/L Normal 5-33 [facility] Comment on above: Performed By: #### V D25 #### [address] [address] Velvet Steamer: Bala Borges MD #### CP, CBC #### [address] [place], [place] 8481883 Velvet Steamer: Gage Barraza MD Anion gap [Moles/Vol] 13 mmol/L Normal 9-17 [facility] Comment on above: Performed By: #### V D25 #### [address] [address] Velvet Steamer: Bala Borges MD #### CP, CBC #### [address] [place], [place] 5797983 Velvet Steamer: Gage Barraza MD AST [Catalytic activity/Vol] 37 U/L High <32 [facility] Comment on above: Performed By: #### V D25 #### [address] [address] Velvet Steamer: Bala Borges MD #### CP, CBC #### [address] [place], [place] 8032383 Velvet Steamer: Gage Barraza MD Bilirubin [Mass/Vol] 0.4 mg/dL Normal 0.3-1.2 [facility] Comment on above: Performed By: #### V D25 #### [address] [address] Velvet Steamer: Bala Borges MD #### CP, CBC #### [address] [place], [place] 3037483 Velvet Steamer: Gage Barraza MD BUN/CRE Ratio 17 Normal 9-20 [facility] Comment on above: Performed By: #### V D25 #### [facility] [address] [place] [address] Velvet Steamer: Bala Borges MD #### CP, CBC #### [facility] [address] [place], [place] 3101383 Velvet Steamer: Gage Barraza MD Calcium [Mass/Vol] 9.7 mg/dL Normal 8.6-10.4 [facility] Comment on above: Performed By: #### V D25 #### [address] [address] Velvet Steamer: Bala Borges MD #### CP, CBC #### [address] [place], [place] 1077383 Velvet Steamer: Gage Barraza MD Chloride [Moles/Vol] 104 mmol/L Normal 98-107 [facility] Comment on above: Performed By: #### V D25 #### [address] [address] Velvet Steamer: Bala Borges MD #### CP, CBC #### [address] [place], [place] 4834783 Velvet Steamer: Gage Barraza MD CO2 [Moles/Vol] 24 mmol/L Normal 20-31 [facility] Comment on above: Performed By: #### V D25 #### [address] [address] Velvet Steamer: Bala Borges MD #### CP, CBC #### [facility] [address] [place], [place] [phone] Velvet Steamer: Gage Barraza MD Creatinine [Mass/Vol] 0.6 mg/dL Normal 0.5-0.9 [facility] Comment on above: Performed By: #### V D25 #### [address] [address] Velvet Steamer: Bala Borges MD #### CP, CBC #### [facility] [address] [place] [address] [place] [address] Velvet Steamer: Gage Barraza MD GFR/1.73 sq M.predicted among non-blacks MDRD (S/P/Bld) [Vol rate/Area] mL/min/{1.73_m2} Normal >60 [facility] Comment on above: Result Comment: These results are not intended for use in patients <18 years of age. eGFR results are calculated without a race factor using the 2020 CKD-EPI equation. Careful clinical correlation is recommended, particularly when comparing to results calculated using previous equations. The CKD-EPI equation is less accurate in patients with extremes of muscle mass, extra-renal metabolism of creatine, excessive creatine ingestion, or following therapy that affects renal tubular secretion. Performed By: #### V D25 #### [address] [address] Velvet Steamer: Bala Borges MD #### CP, CBC #### [address] [place] [address] Velvet Steamer: Gage Barraza MD Glucose [Mass/Vol] 98 mg/dL Normal 70-99 [facility] Comment on above: Performed By: #### V D25 #### [address] [address] Velvet Steamer: Bala Borges MD #### CP, CBC #### [address] [place] [address] Velvet Steamer: Gage Barraza MD Potassium [Moles/Vol] 4.0 mmol/L Normal 3.7-5.3 [facility] Comment on above: Performed By: #### V D25 #### [address] [place] [address] Velvet Steamer: Bala Borges MD #### CP, CBC #### [facility] [address] [place] [address] Dr. [place], [place] [phone] Velvet Steamer: Gage Barraza MD Protein [Mass/Vol] 8.0 g/dL Normal 6.4-8.3 [facility] Comment on above: Performed By: #### V D25 #### [address] [address] Velvet Steamer: Bala Borges MD #### CP, CBC #### [facility] [address] [place] [address] [place] [address] Velvet Steamer: Gage Barraza MD Sodium [Moles/Vol] 141 mmol/L Normal 135-144 [facility] Comment on above: Performed By: #### V D25 #### [address] [address] Velvet Steamer: Bala Borges MD #### CP, CBC #### [facility] [address] [place] [address] [place] [address] Velvet Steamer: Gage Barraza MD Urea nitrogen [Mass/Vol] 10 mg/dL Normal 6-20 [facility] Comment on above: Performed By: #### V D25 #### [address] [address] Velvet Steamer: Bala Borges MD #### CP, CBC #### [facility] [address] [place] [address] [place] [address] Velvet Steamer: Gage Barraza MD Vitamin D 25 OHon 01-09-2023 Vitamin D 25 OH 25.6 ng/mL Low 30.0-100.0 [facility] Comment on above: Result Comment: Reference Range: Vitamin D status Range Deficiency <20 ng/mL Mild Deficiency 20-30 ng/mL Sufficiency 30-100 ng/mL Toxicity >100 ng/mL Performed By: #### V D25 #### [employer] [address] [place], [place] [id number] Velvet Steamer: Bala Borges MD #### CP, KADE #### [facility] [address] [place], [place] [phone] Velvet Steamer: Gage Barraza MD Audiology Office/Clinic Note on 01-03-2023 Audiology Office/Clinic Note HEARING AID Dispense BACKGROUND INFORMATION: Name: Blanka Farias Age: 22 Sex: female Previous Hearing Aid Use: no Associated ENT: Huff Etiology of HL: history of chronic middle ear issues DEVICES FITTING Binaural MAKE Phonak MODEL [place] L30-RL SERIAL # R: [id number] L: [id number] WARRANTY 03/10/28 COLOR black REC. LENGTH 1M COUPLING cshell: R - [id number] ([id number]) L - [id number] ([id number]) remake: 03/12/23 BATTERY rechargeable FITTING Real ear verification measures were not completed with the hearing aid(s) and will be performed at follow up check. The hearing aids were set to 80% target gain per patient subjective feedback. DISCUSSION The patient was counseled relative to the proper use, care, and maintenance of the hearing aid(s). The patient practiced insertion and removal of the hearing aids in office until comfortable. The patient's initial subjective opinion of the hearing aid(s) was very positive. She noted a significant improvement with the hearing aids. She felt her voice was fine. She liked the fit of the cshells with the skeleton mold. Hearing aids were successfully paired to patient's iPhone and demonstrated calls and streaming. The patient read the Acknowledgement of receipt of medicaid hearing aids form and agreed to its contents by signing the form. PLAN 1) Patient is to return for a hearing aid check in 2-3 weeks. 2) Bill medicaid $2500. Electronically signed by Jackie Butler 01/03/23 10:12 EDT Normal [facility] Audiology Office/Clinic Note on 11-29-2022 Audiology Office/Clinic Note BACKGROUND INFORMATION: Name: Blanka Farias Age: 22 Sex: female Previous Hearing Aid Use: no Associated ENT: Huff Etiology of HL: unknown - history of PE tubes, bilaterally SELECTION FITTING Binaural MAKE Phonak MODEL [place] L30-RL WARRANTY 3 years COLOR black REC. LENGTH 1M COUPLING cshells BATTERY rechargeable DISCUSSION Patient was seen for earmold impressions and to pick color of [place]udeo L30-RL. Patient chose black. Earmold impressions were taken without incident. PLAN 1. Return in 2-3 weeks for hearing aid dispense. 2. No charge today Electronically signed by Jackie Butler 11/29/22 12:36 EDT Normal [facility] XR ANKLE LEFT (MIN 3 VIEWS)o n 09-12-2022 XR ANKLE LEFT (MIN 3 VIEWS) EXAMINATION: THREE XRAY VIEWS OF THE LEFT ANKLE; THREE XRAY VIEWS OF THE LEFT FOOT 09/12/2022 3:00 pm COMPARISON: August 26, 2020 HISTORY: ORDERING SYSTEM PROVIDED HISTORY: Left foot pain FINDINGS: Three views each left ankle and left foot obtained. Surgical hardware stable at the distal tibia and talus. No acute osseous abnormality identified. Overall alignment anatomic. Joint spaces preserved. Soft tissues unremarkable. IMPRESSION: No acute findings. Interpreted by: Nirmal Haskins DO Signed by: Nirmal Haskins DO 09/12/22 Final result Normal [facility] XR FOOT LEFT (MIN 3 VIEWS)on 09-12-2022 XR FOOT LEFT (MIN 3 VIEWS) EXAMINATION: THREE XRAY VIEWS OF THE LEFT ANKLE; THREE XRAY VIEWS OF THE LEFT FOOT 09/12/2022 3:00 pm COMPARISON: August 26, 2020 HISTORY: ORDERING SYSTEM PROVIDED HISTORY: Left foot pain FINDINGS: Three views each left ankle and left foot obtained. Surgical hardware stable at the distal tibia and talus. No acute osseous abnormality identified. Overall alignment anatomic. Joint spaces preserved. Soft tissues unremarkable. IMPRESSION: No acute findings. Interpreted by: Nirmal Haskins DO Signed by: Nirmal Haskins DO 09/12/22 Final result Normal [facility] Otolaryngology Office/Clinic Noteon 09-04-2022 Otolaryngology Office/Clinic Note Chief Complaint Patient states I am here to have my hearing and ears checked History of Present Illness Blanka is a very pleasant 22-year-old female who presents for follow-up. She has extensive history of chronic ear disease. She has had 7 sets of ear tubes with last set of T-tubes placed in 2015. He has a longstanding history of chronic ear drainage. She has tried various otic antibiotic drops and oral antibiotics in the past. 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 She has not been seen since July 2021. She continued to have bilateral ear drainage and diminished hearing so T-tubes were removed in-office as they had been present for 7 years (Cx grew Staph). She was placed on Ciprodex drops and otorrhea resolved. She continues to have hearing loss bilaterally. Denies any recent otorrhea. She has having a hard time hearing people on a daily basis as well as she feels as though she is speaking loudly. She presents today for an ear check and audiogram. Physical Exam Vitals & Measurements T: 36.7 ?C (Temporal Artery) Additional Vitals No qualifying data available. Constitutional: Well-developed, well-nourished Communication and Voice: Clear pitch and clarity, age appropriate Head and Face Inspection: Normocephalic and atraumatic without masses or lesions Palpation: Facial skeleton intact without bony stepoffs, no sinus tenderness Ear Pinna: Left - External ear intact and fully developed Right - External ear intact and fully developed External canal: Left - Canal is patent with intact skin Right - Canal is patent with intact skin Cerumen: Left - Normal amount and character, non-obstructing Right - Normal amount and character, non-obstructing Tympanic Membranes: Left -10% perforation that is dry Right - Clear and mobile, small retraction pocket depth visualized Middle Ears: Left - Aerated, no effusion, no masses Right - Aerated, no effusion, no masses Audiogram: Right: Moderate sensorineural hearing loss across all frequencies. Left: Severe mixed hearing loss upsloping to moderate sensorineural hearing loss. SRT of 35 on the right 45 on the left. WRs of 84% on the right and 52% on the left. Type C tympanogram on the right and a flat tympanogram on the left with a large canal volume consistent with a tympanic membrane perforation. Assessment/Plan 1. Mixed hearing loss of left ear 2. Perforated left tympanic membrane on examination Reviewed patient's audiogram in depth today. She has sensorineural hearing loss on the right with mixed hearing loss on the left. The conductive asymmetry on the left at low frequencies is likely due to the perforation. Regardless, patient has sensorineural hearing loss bilaterally. For the left side, we would advise against repairing TM perforation due to her underlying eustachian tube dysfunction bilaterally. It is possible that this perforation is functioning as a natural ear tube for her and she is benefiting from pressure equalization. 3. Right SNHL 4. ETD (eustachian tube dysfunction) Her right TM has healed but there is a small retraction pocket which would be consistent with eustachian tube dysfunction. He also has type C tympanogram on the right. We discussed that a ear tube placement on the right side is unlikely to benefit her hearing but could relieve pressure. For her hearing, would recommend hearing aids. We will set her up for hearing aid evaluation. She is medically clear for hearing aids. Follow-up in 6 months for ear check. Medical Decision Making Chronic conditions NOT treated during this visit that affected my overall medical decision making: [] Treatment plans discussed but not opted for at this time: [] Prescribed medication that requires intensive monitoring for toxicity: [] I have reviewed the patient?s medication list for medication interactions/contraind ications and/or for upcoming procedures: [yes or no] Time Spent with the Patient I have personally spent [28] minutes on this date, directly related to today's patient visit, including pre and post visit work, for this date of service. Time listed does not include time spent on separately billable services. Problem List/Past Medical History Ongoing Chronic otitis media Conductive hearing loss Historical No qualifying data Procedure/Surgical History Ankle surgery x 3 [facility] Medications Nortrel oral tablet Plus Low Iron oral tablet, 1 tabs, Oral, Daily Allergies Topamax (Hives) Grass (unknown) smoke (unknown) Social History Alcohol Never Sexual Sexually active: Yes. Substance Abuse Denies All Tobacco Never (less than 100 in lifetime) Use:. Electronically signed by Larry Huff MD, Chi 09/04/22 13:59 EDT Normal [facility] Cult,Urineon 08-30-2022 Cult,Urine Specimen Description .CLEAN CATCH URINE Culture NO SIGNIFICANT GROWTH Report Status FINAL 08/30/2022 Normal [facility] Comment on above: Performed By: #### U RC ####[place] [id number] [facility], [place] [id number] Lab Director: Bala Borges, [address] , [place] [id number] Lab Director: Gage Barraza MD Urinalysis w/ Microon 2022 Bacteria 1+ Abnormal NONE [facility] Comment on above: Performed By: #### U AMIC ####[address] [place] [address] Lab Director: Gage Barraza MD Bilirubin, SemiQt,Ur Negative Normal NEG [facility] Comment on above: Performed By: #### U AMIC ####[address] , [place] [id number] Lab Director: Gage Barraza MD Blood, Urine Negative Normal NEG [facility] Comment on above: Performed By: #### U AMIC ####[facility] [place] [address] , [place] [id number] Lab Director: Gage Barraza MD Clarity (U) SLIGHTLY CLOUDY Abnormal CLEAR [facility] Comment on above: Performed By: #### U AMIC ####[facility] [place] , [place] [id number] Lab Director: Gage Barraza MD Color (U) Yellow Normal YEL [facility] Comment on above: Performed By: #### U AMIC ####[address] , [place] [id number] Lab Director: Gage Barraza MD Epithelial cells LM Ql (Urine sed) 10 TO 20 Normal 0-25 [facility] Comment on above: Performed By: #### U AMIC ####[address] , [place] [id number] Lab Director: Gage Barraza MD Glucose Ql (U) Negative Normal NEG [facility] Comment on above: Performed By: #### U AMIC ####[address] , [place] [id number] Lab Director: Gage Barraza MD Ketones Ql (U) Negative Normal NEG [facility] Comment on above: Performed By: #### U AMIC ####[address] , [place] [id number] Lab Director: Gage Barraza MD Leukocyte esterase Test strip Ql (U) MODERATE Abnormal NEG [facility] Comment on above: Performed By: #### U AMIC ####[address] , [place] [id number] lab Director: Gage Barraza MD Nitrite,Ur Negative Normal NEG [facility] Comment on above: Performed By: #### U AMIC ####[address] , [place] [id number] Lab Director: Gage Barraza MD PH,Ur 6.0 Normal 5.0-9.0 [facility] Comment on above: Performed By: #### U AMIC ####[address] , [place] [id number] Lab Director: Gage Barraza MD Protein Ql (U) Negative Normal NEG [facility] Comment on above: Performed By: #### U AMIC ####[facility] [place] , [place] [id number] Lab Director: Gage Barraza MD Spec. [place],Ur <1.005 Low 1.010-1.020 [facility] Comment on above: Performed By: #### U AMIC ####[facility] [place] , [place] [id number] Lab Director: Gage Barraza MD Urine RBC's 0 TO 2 Normal 0-2 [facility] Comment on above: Performed By: #### U AMIC ####[facility] [place] , [place] [id number] lab Director: Gage Barraza MD Urine WBC's 20 TO 50 Normal 0-5 [facility] Comment on above: Performed By: #### U AMIC ####[address] , [place] [id number] [facility] Director: Gage Barraza MD Urobilinogen,Ur Normal Normal NORM [facility] Comment on above: Performed By: #### U AMIC ####[address] , [place] [id number] lab Director: Gage Barraza MD Urinalysis with Microscopico n 08-29-2022 Bacteria, UA 1+ Abnormal None [facility] Bilirubin Urine Negative NEGATIVE [facility] Color, UA Yellow Yellow [facility] Epithelial Cells UA 10 TO 20 [facility] Glucose Auto test strip (U) [Mass/Vol] Negative NEGATIVE [facility] Interpretation and review of laboratory results Abnormal [facility] Ketones (U) [Mass/Vol] Negative NEGATIVE [facility] Leukocyte esterase Auto test strip Ql (U) MODERATE Abnormal NEGATIVE [facility] Nitrite Auto test strip Ql (U) Negative NEGATIVE [facility] Protein (U) [Mass/Vol] 6.0 mg/dL 5.0 - 9.0 [facility] Protein (U) [Mass/Vol] Negative NEGATIVE [facility] RBC clumps Auto (Urine sed) [#/Area] 0 TO 2 [facility] Specific [place], UA Low 1.010 - 1.020 [facility] Turbidity UA SLIGHTLY CLOUDY Abnormal Clear [facility] Urine Hgb Negative NEGATIVE [facility] Urobilinogen, Urine Normal Normal [facility] WBC, UA 20 TO 50 [facility] XR WRIST LEFT (MIN 3 VIEWS)o n 06-20-2022 Normal wrist radiographs [facility] EXAMINATION: XRAY VIEWS OF THE LEFT WRIST 06/20/2022 3:55 pm COMPARISON: None. HISTORY: ORDERING SYSTEM PROVIDED HISTORY: Pain FINDINGS: Carpal bones and alignment are maintained. Distal radius and ulna are intact. No acute fracture or dislocation. [facility] Nirmal Haskins, DO - 06/20/2022 EXAMINATION: XRAY VIEWS OF THE LEFT WRIST 06/20/2022 3:55 pm COMPARISON: None. HISTORY: ORDERING SYSTEM PROVIDED HISTORY: Pain FINDINGS: Carpal bones and alignment are maintained. Distal radius and ulna are intact. No acute fracture or dislocation. IMPRESSION: Normal wrist radiographs [facility] Work Phone: Radiology Study observation (narrative) [facility] Work Phone: XR WRIST LEFT (MIN 3 VIEWS)O rdered By: Nirmal Haskins on 06-20-2022 [facility] Work Phone: Otolaryngology Office/Clinic Noteon 06-14-2022 Otolaryngology Office/Clinic Note Chief Complaint Patient states I am here for one month ear check History of Present Illness Blanka is a very pleasant 21-year-old female who presents for follow-up. She has extensive history of chronic ear disease. She has had 7 sets of ear tubes with last set of T-tubes placed in 2015. He has a longstanding history of chronic ear drainage. She has tried various otic antibiotic drops and oral antibiotics in the past. 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 She has not been seen since July 2021. She continues to have bilateral ear drainage and diminished hearing so T-tubes were removed in-office as they had been present for 7 years (Cx grew Staph). She used Ciprodex drops. Otorrhea has resolved. She complains of burning sensation in both ears. Review of Systems General Cardiovascular EENMT Ear drainage: No Ear pain: Yes Facial pain: No Hearing loss: No Hoarseness: No Nasal congestion: No Sore_throat: No Tinnitus: No Gastrointestinal Dysphagia: No Genitourinary Hematologic/Lymphatic Musculoskeletal Neurological Psychiatric Respiratory Cough: No Skin 13-point review of systems is negative unless otherwise specifically noted above. Physical Exam Vitals & Measurements T: 36.5 ?C (Temporal Artery) HR: 78 (Peripheral) BP: 131/83 Additional Vitals BP Position/Location: Sitting, Right arm Constitutional: Well-developed, well-nourished Communication and Voice: Clear pitch and clarity, age appropriate Head and Face Inspection: Normocephalic and atraumatic without masses or lesions Palpation: Facial skeleton intact without bony stepoffs, no sinus tenderness Ear Pinna: Left - External ear intact and fully developed Right - External ear intact and fully developed External canal: Left - Canal is patent with intact skin Right - Canal is patent with intact skin Cerumen: Left - Normal amount and character, non-obstructing Right - Normal amount and character, non-obstructing Tympanic Membranes: Left - 10% TM perforation, dry Right - 5% TM perforation, dry Middle Ears: Left - Aerated, no effusion, no masses Right - Aerated, no effusion, no masses Assessment/Plan 1. Chronic disease of both ears 2. ETD (eustachian tube dysfunction) 3. Perforation of both tympanic membranes Otorrhea has resolved in both ears looks healthy and dry. This is very promising. She does has a residual perforation on both sides from her T-tube removal. We will give this time to see if this will heal on its own. Residual TM perforation could be cause of her persistent ear discomfort. If that does not heal, there may be a silver lining in such that the small perforation serves as natural ear tubes due to her history of chronic ear disease and eustachian tube dysfunction. We will plan to see her back in 3 months with updated audiogram. Medical Decision Making Chronic conditions NOT treated during this visit that affected my overall medical decision making: [] Treatment plans discussed but not opted for at this time: [] Prescribed medication that requires intensive monitoring for toxicity: [] I have reviewed the patient?s medication list for medication interactions/contraind ications and/or for upcoming procedures: [yes or no] Time Spent with the Patient I have personally spent [23] minutes on this date, directly related to today's patient visit, including pre and post visit work, for this date of service. Time listed does not include time spent on separately billable services. Problem List/Past Medical History Ongoing Chronic otitis media Conductive hearing loss Historical No qualifying data Procedure/Surgical History Ankle surgery x 3 [facility] Medications Nortrel oral tablet Plus Low Iron oral tablet, 1 tabs, Oral, Daily Allergies Topamax (Hives) Grass (unknown) smoke (unknown) Social History Alcohol Never Sexual Sexually active: Yes. Substance Abuse Denies All Tobacco Never (less than 100 in lifetime) Use:. Electronically signed by ____Larry Glynn MD, Chi 06/14/22 13:02 EST Normal [facility] C Earon 05-20-2022 C Ear -- - Final Scant Growth of Staphylococcus aureus isolated . ORGANISM SA --- SUSCEPTIBILITY -- ORGANISM ID: 1 ANTIBIOTIC INTERPRETATION TALITA STATUS POS Staphylococcus aureus Ciprofloxacin S <=0.5 V Clindamycin S <=0.25 V Erythromycin S <=0.25 V Gentamicin S <=0.5 V Levofloxacin S 0.25 V Moxifloxacin S <=0.25 V Penicillin R >=0.5 V Oxacillin S 1 V Quinapristin/Dalfopris tin S <=0.25 V Rifampin S <=0.5 V Trimethoprim/Sulfa S <=10 V Tetracycline S <=1 V Vancomycin S 1 V Normal [facility] Comment on above: Performed By: #### C JOSE #### [facility] (DEFAULT) [address] [place] [address] [facility] [address] [place] [address] Otolaryngology Office/Clinic Noteon 05-17-2022 Otolaryngology Office/Clinic Note Chief Complaint pt statea both my ears are causing me grief History of Present Illness Matheus is a very pleasant 89-year-old female who presents for follow-up. She has extensive history of chronic ear disease. She has had 7 sets of ear tubes with last set of T-tubes placed in 2015. He has a longstanding history of chronic ear drainage. She has tried various otic antibiotic drops and oral antibiotics in the past. 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 She has not been seen since July 2021. She continues to have bilateral ear drainage and diminished hearing. No recent antibiotics. Review of Systems General Appetite change: No Cardiovascular EENMT Ear drainage: Yes Ear pain: Yes Hearing loss: Yes Hoarseness: No Nasal congestion: No Nasal discharge: No Sore_throat: No Tinnitus: No Gastrointestinal Genitourinary Hematologic/Lymphatic Musculoskeletal Neurological Headache: No Psychiatric Suicidal Ideation: No Respiratory Cough: No Skin 13-point review of systems is negative unless otherwise specifically noted above. Physical Exam Vitals & Measurements T: 38.8 ?C (Temporal Artery) BP: 138/88 Additional Vitals BP Position/Location: Sitting, Right arm Constitutional: Well-developed, well-nourished Communication and Voice: Clear pitch and clarity, age appropriate Head and Face Inspection: Normocephalic and atraumatic without masses or lesions Palpation: Facial skeleton intact without bony stepoffs, no sinus tenderness Ear Pinna: Left - External ear intact and fully developed Right - External ear intact and fully developed External canal: Left - Canal is patent with intact skin Right - Canal is patent with intact skin Cerumen: Left - Normal amount and character, non-obstructing Right - Normal amount and character, non-obstructing Tympanic Membranes: Left - T-tube in place with purulent otorrhea - T-tube removed under operating microscope, sent for culture Right - T-tube in place with purulent otorrhea - T-tube removed under operating microscope Middle Ears: Left - Aerated, no effusion, no masses Right - Aerated, no effusion, no masses Data Reviewed: MRI brain 07/14/2021 T2 signal in right > left mastoid consistent with effusion vs chronic mastoiditis Assessment/Plan 1. Bilateral chronic otorrhea Ordered: Culture Ear 2. History of tympanostomy tube placement She has had T tubes in place for 7 years now and has had chronic otorrhea. I am concerned for biofilm over these ear tubes. Therefore I suggest removing the foreign body. We discussed that if the T tubes were removed, it is possible she may need to use reinserted in the future. However at this time because she is a new patient to me, I would like to better understand how her ear responds to interventions. Both T-tubes removed. Left T-tube was sent for culture. We will call if culture results affect treatment plan. Could consider adding oral antibiotics if necessary to clear the infection. In the interim, start Ciprodex for 2 weeks. Dry ear precautions. We will plan to see her back in 1 month. We will schedule her appointment with audiology for custom earmolds. 3. Chronic disease of both ears 4. ETD (eustachian tube dysfunction) Ultimately, the question for the future is if the otorrhea will resolve with these T-tubes removed. Also, if her TM heals, it is unclear if she will reaccumulate middle ear effusion. It is possible she may benefit from cortical mastoidectomy for chronic mastoiditis/chronic ear disease. We also need to obtain an updated hearing test to discuss ways we can improve her hearing. But first, we'd like to address the infection. Orders: ciprofloxacin-dexameth asone otic, 4 drops, Ear-Both, BID, X 14 days, # 7.5 mL, 3 Refill(s), 07/12/22 15:35:00 EDT, Pharmacy: [facility]/pharmacy #[id number] Medical Decision Making Chronic conditions NOT treated during this visit that affected my overall medical decision making: [] Treatment plans discussed but not opted for at this time: [] Prescribed medication that requires intensive monitoring for toxicity: [] I have reviewed the patient?s medication list for medication interactions/contraind ications and/or for upcoming procedures: [yes or no] Time Spent with the Patient I have personally spent [38] minutes on this date, directly related to today's patient visit, including pre and post visit work, for this date of service. Time listed does not include time spent on separately billable services. Problem List/Past Medical History Ongoing Chronic otitis media Conductive hearing loss Historical No qualifying data Procedure/Surgical History Ankle surgery x 3 [facility] Medications cefdinir 300 mg oral capsule, 300 mg= 1 caps, Oral, BID Ciprodex 0.3%-0.1% otic suspension, 4 drops, Ear-Both, BID, 3 refills Plus Low Iron oral tablet, 1 tabs, Oral, Daily Allergies Topamax (Hives) Gras (more content not included)... Normal [facility] CNOVon 03-09-2022 CN Office Visit (LOORRM ) BLANKA FARIAS ([id number]) [birth year] F Date Time Provider Department 03/09/22 11:15 AM SHARONA HOFFMAN During your visit today, we recorded the following information about you: Sharona Hoffman DPM 03/09/2022 4:54 PM Signed Patient Visit for Blanka Farias 2000 21 year old female SUBJECTIVE: Chief Complaint: Patient presents with: Right Ankle - New, Pain Pain Scales: Verbal (Numeric Rating or Visual Analog Scale) Pain Level: 8 Pain Location: Ankle-Right Description: Aching, Throbbing Duration Amount of Time: 1 Duration Units: Years Frequency: Intermittent Intervention/Comfort measure: Cold, Heat, Relaxation, Medication Comments: She is here for pain in her right ankle. No known injury. Pain increases with prolong standing. Additional HPI: here today with mother present during visit Complicated history of bilateral ankle symptoms Complete previous records are unavailable for review Per patient's mother Previous LEFT ANKLE surgery Dr. Jonny Rene, DPM [place] arthroscopic surgery ? Later revised by Dr. 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 History of degenerative joint disease spine? Per mother PCP: Louise Mccullough MD, MD No past medical history on file. Current Outpatient Medications Medication Sig DULoxetine (CYMBALTA) 60 mg capsule Take 60 mg by mouth once daily. METFORMIN 500 mg tablet (Patient not taking: Reported on 02/07/2022) No current facility-administered medications for this visit. ALLERGIES Allergen Reactions Neomycin-Polymyxin-* Other: See Comments red eyes No past surgical history on file. FAMILY HISTORY Problem Relation Age of Onset Cancer Paternal Grandmother Cataract Other Strabismus Other GGM maternal side Cancer Other Social History Tobacco Use Smoking status: Never Smokeless tobacco: Never Substance Use Topics Alcohol use: No Drug use: No Tobacco Use: Never REVIEW OF SYSTEMS: The remainder of the ROS was reviewed with the patient and is negative except as noted. GENERAL: denies fever or chills CARDIOVASCULAR: Denies current chest pain or SOB (shortness of breath) OBJECTIVE: General: Pleasant in no acute distress Lower extremity exam: Vascular exam: Normal vascular exam, palpable pluses with brisk capillary fill Neurological exam: Normal neurological exam, gross epicritic sensation intact Dermatological exam: LEFT ANKLE well healed scars from previous surgery Normal exam without rashes or lesions of skin. No evidence of evidence of petechiae, purpura, telangiectasia Musculoskeletal exam: Bilateral significant valgus deformity knees ROM indicates relative mild to moderate tightness of gastrocnemius / equinus bilateral Without obvious genu recurvatum Dorsiflexion bilateral ankle with knee extended negative 5 degrees With knee flexed 5 degrees Plantar flexion over 30 bilateral RIGHT ANKLE Vague tenderness to palpation along the course of peroneal tendons and sinus tarsi No tenderness to palpation or joint effusion ankle No tenderness to palpation medial talar dome LEFT No joint crepitus with ROM (Range of Motion) No subluxation peroneal tendons Other Gross range of motion appears to be intact to ankle and foot Normal single limb heel rise on affected side bilateral Gait mild to moderate eversion hind foot Significant valgus knee position LABS: Most recent labs reviewed LABORATORY STUDIES: No results for input(s): HB, WBC, PLT, WSR, CRP, CCPABG, RF, INR, CREATININE, ALB, PROT, URICACID, HBA1C, VITD25 in the last 98219 hours. 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 I discussed with the patient and mother probable significant orthopedic issues hips and knees Recommend follow up with ortho specializing in alignment issues in young patients Refer to custom molded Foot Orthosis as this may help some of her foot and ankle symptoms Surgical treatment RIGHT ANKLE medial Osteo Chondral Defect (O.C.D.) Talar Dome (more content not included)... Normal [facility] XR WRIST RIGHT (MIN 3 VIEWS) on 03-09-2022 Normal wrist radiographs [facility] EXAMINATION: XRAY VIEWS OF THE RIGHT WRIST 03/07/2022 2:33 pm COMPARISON: None. HISTORY: ORDERING SYSTEM PROVIDED HISTORY: Right wrist pain FINDINGS: Carpal bones and alignment are maintained. Distal radius and ulna are intact. No acute fracture or dislocation. [facility] Nirmal Haskins DO - 03/09/2022 EXAMINATION: XRAY VIEWS OF THE RIGHT WRIST 03/07/2022 2:33 pm COMPARISON: None. HISTORY: ORDERING SYSTEM PROVIDED HISTORY: Right wrist pain FINDINGS: Carpal bones and alignment are maintained. Distal radius and ulna are intact. No acute fracture or dislocation. IMPRESSION: Normal wrist radiographs [facility] Work Phone: XR WRIST RIGHT (MIN 3 VIEWS) Ordered By: Nirmal Haskins on 03-09-2022 [facility] Work Phone: XR WRIST RIGHT (MIN 3 VIEWS) on 03-07-2022 Radiology Study observation (narrative) [facility] Work Phone: Comprehensive Metabolic Pane crystal 02-19-2022 Albumin [Mass/Vol] 4.9 g/dL 3.5 - 5.2 g/dL [facility] Albumin/Globulin [Mass ratio] 1.5 {ratio} 1.0 - 2.5 [facility] ALP (Bld) [Catalytic activity/Vol] 64 U/L 35 - 104 U/L [facility] ALT [Catalytic activity/Vol] 16 U/L 5 - 33 U/L [facility] Anion gap [Moles/Vol] 13 mmol/L 9 - 17 mmol/L [facility] AST [Catalytic activity/Vol] 27 U/L NINF - 32 U/L [facility] Bilirubin [Mass/Vol] 0.3 mg/dL 0.3 - 1 .2 mg/dL [facility] Calcium [Mass/Vol] 9.6 mg/dL 8.6 - 10. 4 mg/dL [facility] Chloride [Moles/Vol] 103 mmol/L 98 - 10 7 mmol/L [facility] CO2 [Moles/Vol] 25 mmol/L 20 - 31 mmol/L [facility] Creatinine [Mass/Vol] 0.59 mg/dL 0.50 - 0.90 mg/dL [facility] GFR/1.73 sq M.predicted MDRD (S/P/Bld) [Vol rate/Area] - PINF [facility] Comment on above: Effective Jan 29, 2022 These results are not intended for use in patients <18 years of age. eGFR results are calculated without a race factor using the 2020 CKD-EPI equation. Careful clinical correlation is recommended, particularly when comparing to results calculated using previous equations. The CKD-EPI equation is less accurate in patients with extremes of muscle mass, extra-renal metabolism of creatine, excessive creatine ingestion, or following therapy that affects renal tubular secretion. Glucose [Mass/Vol] 75 mg/dL 70 - 99 mg/dL [facility] Interpretation and review of laboratory results Abnormal [facility] Potassium [Moles/Vol] 3.8 mmol/L 3.7 - 5.3 mmol/L [facility] Protein [Mass/Vol] 8.1 g/dL 6.4 - 8.3 g/dL [facility] Sodium [Moles/Vol] 141 mmol/L 135 - 144 mmol/L [facility] Urea nitrogen (BldV) [Mass/Vol] 15 mg/dL 6 - 20 mg/dL [facility] Urea nitrogen/Creatinine (Bld) [Mass ratio] 25 High 9 - 20 [facility] Urinalysis with Microscopico n 02-19-2022 Bacteria, UA 1+ Abnormal None [facility] Bilirubin Urine Negative NEGATIVE [facility] Color, UA Yellow Yellow [facility] Epithelial Cells UA 0 TO 2 [facility] Glucose, Ur TRACE Abnormal NEGATIVE [facility] Interpretation and review of laboratory results Abnormal [facility] Ketones Ql (U) Negative NEGATIVE [facility] Leukocyte esterase Test strip Ql (U) TRACE Abnormal NEGATIVE [facility] Nitrite, Urine Negative NEGATIVE [facility] pH, UA 6.0 5.0 - 9.0 [facility] Protein, UA TRACE Abnormal NEGATIVE [facility] RBC, UA 50 TO 100 [facility] Specific [place], UA 1.020 1.010 - 1.020 [facility] Turbidity UA SLIGHTLY CLOUDY Abnormal Clear [facility] Urine Hgb 3+ Abnormal NEGATIVE [facility] Urobilinogen, Urine Normal Normal [facility] WBC, UA 5 TO 10 [facility] CNOVon 02-07-2022 CNOV Office Visit (LOORRM ) BLANKA FARIAS ([id number]) 4 F Date Time Provider Department 02/07/22 11:00 AM RK RENDON During your visit today, we recorded the following information about you: Rk Rendon DPM 02/07/2022 2:48 PM Signed [facility] Department of Orthopedics [facility] Orthopedic Surgery Name: Blanka Farias Date of Service: February 07, 2022 CC/HPI: This 21 year old pleasant female patient presents to the clinic today with her mother present with 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 Up. The said her left ankle was doing fine but now it seems to be her right. She denies any history of injury or trauma and describes an insidious onset. She has an extensive history with substantial medical issues. She is seen today to discuss this problem and treatment. No past medical history on file. Current Outpatient Medications Medication Sig DULoxetine (CYMBALTA) 60 mg capsule Take 60 mg by mouth once daily. METFORMIN 500 mg tablet (Patient not taking: Reported on 02/07/2022) No current facility-administered medications for this visit. ALLERGIES Allergen Reactions Neomycin-Polymyxin-* Other: See Comments red eyes No past surgical history on file. FAMILY HISTORY Problem Relation Age of Onset Cancer Paternal Grandmother Cataract Other Strabismus Other GGM maternal side Cancer Other Social History Tobacco Use Smoking status: Never Smokeless tobacco: Never Substance Use Topics Alcohol use: No Drug use: No Physical Exam: The patient is alert and oriented x 3 in no apparent acute distress. 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 Discussed results of clinical and radiographic examination with the patient and mother in detail along with treatment options. Suggested consultation Dr. Hoffman to see if an ankle scope would be warranted. They said she had the same thing on her left and had an ankle scope and eventually she ended up with a talar replacement. Suggested consultation with Dr. Hoffman regarding this matter to see if anything can be done for her. 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 - METFORMIN 500 mg tablet Problem List As Of Date 02/07/2022 Noted Resolved Retinal dystrophy [H35.50] 06/14/2013 Fatty liver [K76.0] 06/14/2013 Letter Text Encounter Status:Closed by RK RENDON on 02/07/22 Normal [facility] MRI ANKLE RT WO CONon 2021 MRI ANKLE RT WO CON EXAM: MRI ANKLE RT W O CON HISTORY: Right ankle pain COMPARISON: X-rays 01/12/2022 TECHNIQUE: Multiplanar, multi sequential MRI sequences were performed FINDINGS: Fine detail evaluation is limited on this study as all sequences were performed obliquely instead of true axial, sagittal and coronal. Approximately 9.3 mm AP x 7.6 mm transverse x 8.34 mm craniocaudal osteochondral defect of the medial talar dome shoulder (coronal 9 and sagittal 8). No additional osseous irregularity. No fracture, dislocation, subluxation. No discrete joint effusions. The superficial subcutaneous soft tissues exhibit no gross abnormality. The tarsal tunnel and leighann pedis exhibit no gross mass, cyst or edema. The visualized tendons exhibit no thickening, tear, edema or tenosynovial collections. The ankle ligaments are normal. The sinus tarsi, Achilles tendon and central cord of the plantar aponeurosis exhibit no thickening, tear or edema. No muscle edema, hematoma, atrophy or fatty infiltration. IMPRESSION: Poorly evaluated osteochondral defect of the medial talar dome shoulder Electronically authenticated by: GAGE JACK Date: 2022-01-20 17:17 Normal [facility] CBC AUTO DIFFon 01-12-2022 BASO # 0.1 103/ul Normal 0.0-0.1 [facility] Comment on above: Performed By: #### U MICRO, UARMICR #### [facility] [address] [place] [address] Dr. Bertha Duncan Basophils/100 WBC (Bld) 0.5 % Normal 0.2-2.[address] [facility] Comment on above: Performed By: #### U MICRO, UARMICR #### [facility] [address] [place] [address] Dr. Bertha Duncan EO # 0.3 103/ul Normal 0.0-0.7 [facility] Comment on above: Performed By: #### U MICRO, UARMICR #### [facility] [address] [place] [address] Dr. Bertha Duncan Eosinophils/100 WBC (Bld) 2.1 % Normal 0.9-7.[address] [facility] Comment on above: Performed By: #### U MICRO, UARMICR #### [facility] [address] [place] [address] Dr. Bertha Duncan Erythrocyte distribution width (RBC) [Ratio] 13.8 % Normal 11.0-15.[address] [facility] Comment on above: Performed By: #### U MICRO, UARMICR #### [facility] [address] [place] [address] Dr. Bertha Duncan Hematocrit (Bld) [Volume fraction] 39.1 % Normal 36.0-48.[address] [facility] Comment on above: Performed By: #### U MICRO, UARMICR #### [facility] [address] [place] [address] Dr. Bertha Duncan Hemoglobin (Bld) [Mass/Vol] 13.1 g/dL Normal 12.0-16.0 [facility] Comment on above: Performed By: #### U MICRO, UARMICR #### [facility] [address] [place] [address] Dr. Bertha Duncan IG # 0.05 10e3/ul Critically high 0.00-0.03 [facility] Comment on above: Performed By: #### U MICRO, UARMICR #### [facility] [address] [address] [address] Bertha Duncan IG % 0.4 % Normal 0.0-0.5 [facility] Comment on above: Performed By: #### U MICRO, UARMICR #### [facility] [address] [place] [address] Dr. Bertha Duncan LYMPH # 3.1 103/ul Normal 1.2-3.8 [facility] Comment on above: Performed By: #### U MICRO, UARMICR #### [facility] [address] [place] [address] Dr. Bertha Duncan Lymphocytes/100 WBC (Bld) 23.9 % Normal 20.5-60.0 [facility] Comment on above: Performed By: #### U MICRO, UARMICR #### [facility] [address] [place] [address] Dr. Bertha Duncan MANUAL DIFF REQ NO Normal [facility] Comment on above: Performed By: #### U MICRO, UARMICR #### [facility] [address] [place] [address] Dr. Bertha Duncan MCH (RBC) [Entitic mass] 27.1 pg Normal 26.7-34.0 [facility] Comment on above: Performed By: #### U MICRO, UARMICR #### [facility] [address] [place] [address] Dr. Bertha Duncan MCHC (RBC) [Mass/Vol] 33.5 g/dL Normal 29.9-35.2 [facility] Comment on above: Performed By: #### U MICRO, UARMICR #### [facility] [address] [address] [address] Bertha Duncan MCV (RBC) [Entitic vol] 81.0 fL Normal 81.0-99.0 [facility] Comment on above: Performed By: #### U MICRO, UARMICR #### [facility] [address] [address] [address] Bertha Duncan MONO # 0.8 103/ul Normal 0.3-0.8 [facility] Comment on above: Performed By: #### U MICRO, UARMICR #### [facility] [address] [place] [address] Dr. Bertha Duncna Monocytes/100 WBC (Bld) 5.8 % Normal 1.7-12.0 [facility] Comment on above: Performed By: #### U MICRO, UARMICR #### [facility] [address] [place] [address] Dr. Bertha Duncan NEUT # 8.7 103/ul Critically high 1.4-6.5 [facility] Comment on above: Performed By: #### U MICRO, UARMICR #### [facility] [address] [place] [address] Dr. Bertha Duncan Neutrophils/100 WBC (Bld) 67.3 % Normal 43.0-75.0 [facility] Comment on above: Performed By: #### U MICRO, UARMICR #### [facility] [address] [place] [address] Dr. Bertha Duncan Platelet mean volume (Bld) [Entitic vol] 9.8 fL Normal 9.5-13.5 [facility] Comment on above: Performed By: #### U MICRO, UARMICR #### [facility] [address] [place] [address] Dr. Bertha Duncan PLT 369 103/ul Normal 150-450 [facility] Comment on above: Performed By: #### U MICRO, UARMICR #### [facility] [address] [place] [address] Dr. Bertha Duncan RBC 4.83 106/ul Normal 4.20-5.40 [facility] Comment on above: Performed By: #### U MICRO, UARMICR #### [facility] [address] [place] [address] Dr. Bertha Duncan WBC 12.9 103/ul Critically high 4.0-11.0 [facility] Comment on above: Performed By: #### U MICRO, UARMICR #### [facility] [address] [place] [address] Dr. Bertha Duncan CULTURE URINEon 01-12-2022 CULTURE URINE Culture Observations : HEAVY GROWTH OF MIXED GENITAL BEAU. NO POTENTIAL PATHOGENS SEEN. Normal [facility] Comment on above: Performed By: #### U MICRO, UARMICR #### [facility] [address] [place] [address] Dr. Bertha Duncan PROF 14(COMP METB)on 022 Albumin [Mass/Vol] 4.1 g/dL Normal 3.4-5.0 [facility] Comment on above: Performed By: #### C MP #### [facility] [address] [place] [address] Dr. Bertha Duncan Albumin/Globulin [Mass ratio] 1.0 {ratio} Normal [facility] Comment on above: Performed By: #### C MP #### [facility] [address] [place] [address] Dr. Bertha Duncan ALP [Catalytic activity/Vol] 57 U/L Normal 46-[address] [facility] Comment on above: Performed By: #### C MP #### [facility] [address] [place] [address] Dr. Bertha Duncan ALT [Catalytic activity/Vol] 19 U/L Normal 14-[address] [facility] Comment on above: Performed By: #### C MP #### [facility] [address] [place] [address] Dr. Bertha Duncan Anion gap [Moles/Vol] 12.5 mmol/L [facility] Comment on above: Performed By: #### C MP #### [facility] [address] [place] [address] Dr. Bertha Duncan AST [Catalytic activity/Vol] 23 U/L Normal 15-[address] [facility] Comment on above: Performed By: #### C MP #### [facility] [address] [address] [address] Bertha Duncan Bilirubin [Mass/Vol] 0.2 mg/dL Normal 0.2-1.[address] [facility] Comment on above: Performed By: #### C MP #### [facility] [address] [address] [address] Bertha Duncan Calcium [Mass/Vol] 9.3 mg/dL Normal 8.5-10.1 [facility] Comment on above: Performed By: #### C MP #### [facility] [address] [place] [address] Dr. Bertha Duncan Chloride [Moles/Vol] 104 mmol/L Normal 98-[address] [facility] Comment on above: Performed By: #### C MP #### [facility] [address] [address] [address] Bertha Duncan CO2 [Moles/Vol] 23.2 mmol/L Normal 21.0-32.0 [facility] Comment on above: Performed By: #### C MP #### [facility] [address] [place] [address] Dr. Bertha Duncan Creatinine [Mass/Vol] 0.62 mg/dL Normal 0.55-1.[address] [facility] Comment on above: Performed By: #### C MP #### [facility] [address] [address] [address] Bertha Duncan EGFR-AF GREENLANDIC >60 Normal >=60 [facility] Comment on above: Performed By: #### C MP #### [facility] [address] [address] [address] Bertha Duncan EGFR-NON AF GREENLANDIC >60 Normal >=[address] [facility] Comment on above: Performed By: #### C MP #### [facility] [address] [place] [address] Dr. Bertha Duncan Globulin (S) [Mass/Vol] 4.0 g/dL Normal [facility] Comment on above: Performed By: #### C MP #### [facility] [address] [address] [address] Bertha Duncan Glucose [Mass/Vol] 83 mg/dL Normal 74-106 [facility] Comment on above: Performed By: #### C MP #### [facility] [address] [address] [address] Bertha Duncan Potassium [Moles/Vol] 3.7 mmol/L Normal 3.5-5.[address] [facility] Comment on above: Performed By: #### C MP #### [facility] [address] [address] [address] Bertha Duncan Protein [Mass/Vol] 8.1 g/dL Normal 6.4-8.2 [facility] Comment on above: Performed By: #### C MP #### [facility] [address] [address] [address] Bertha Duncan Sodium [Moles/Vol] 136 mmol/L Normal 136-145 [facility] Comment on above: Performed By: #### C MP #### [facility] [address] [address] [address] Bertha Duncan Urea nitrogen [Mass/Vol] 16.0 mg/dL Normal 6.4-19.[address] [facility] Comment on above: Performed By: #### C MP #### [facility] [address] [address] [address] Bertha Duncan Urea nitrogen/Creatinine [Mass ratio] 25.8 mg/mg Normal [facility] Comment on above: Performed By: #### C MP #### [facility] [address] [address] [address] Bertha Duncan UA RANDOM W/MICROSCOPICon BACTERIA NONE SEEN Normal NONE SEEN [facility] Comment on above: Performed By: #### U AMIC #### [facility] [address] [address] [address] Bertha Duncan Bilirubin Ql (U) Negative Normal NEGATIVE [facility] Comment on above: Performed By: #### U AMIC #### [facility] [address] [address] [address] Bertha Duncan CAST NONE SEEN Normal NONE SEEN [facility] Comment on above: Performed By: #### U AMIC #### [facility] [address] [address] [address] Bertha Duncan Clarity (U) CLEAR Normal CLEAR [facility] Comment on above: Performed By: #### U AMIC #### [facility] [address] [address] [address] Bertha Duncan Color (U) LT. YELLOW Normal YELLOW [facility] Comment on above: Performed By: #### U AMIC #### [facility] [address] [address] [address] Bertha Duncan Crystals LM Nom (Urine sed) NONE SEEN Normal NONE SEEN [facility] Comment on above: Performed By: #### U AMIC #### [facility] [address] [place] [address] Dr. Bertha Duncan Epithelial cells LM Ql (Urine sed) MODERATE Abnormal NONE SEEN /RARE [facility] Comment on above: Performed By: #### U AMIC #### [facility] [address] [place] [address] Dr. Bertha Duncan Glucose Ql (U) Negative Normal NEGATIVE [facility] Comment on above: Performed By: #### U AMIC #### [facility] [address] [place] [address] Dr. Bertha Duncan Hemoglobin Ql (U) Negative Normal NEGATIVE [facility] Comment on above: Performed By: #### U AMIC #### [facility] [address] [address] [address] Bertha Duncan Ketones Ql (U) Negative Normal NEGATIVE [facility] Comment on above: Performed By: #### U AMIC #### [facility] [address] [address] [address] Bertha Duncan LEUKOCYTES TRACE Abnormal NEGATIVE [facility] Comment on above: Performed By: #### U AMIC #### [facility] [address] [address] [address] Bertha Duncan MUCOUS NONE SEEN Normal NONE SEEN [facility] Comment on above: Performed By: #### U AMIC #### [facility] [address] [address] [address] Bertha Duncan Nitrite Ql (U) Negative Normal NEGATIVE [facility] Comment on above: Performed By: #### U AMIC #### [facility] [address] [address] [address] Bertha Duncan pH (U) 6.0 [pH] Normal 5-9 [facility] Comment on above: Performed By: #### U AMIC #### [facility] [address] [address] [address] Bertha Duncan RBC NONE SEEN Abnormal 0-2 [facility] Comment on above: Performed By: #### U AMIC #### [facility] [address] [place] [address] Dr. Bertha Ducnan SPEC GRAVITY 1.005 Normal 1.005-<=1.[address] [facility] Comment on above: Performed By: #### U AMIC #### [facility] [address] [place] [address] Dr. Bertha Duncan UA PROTEIN Negative Normal NEGATIVE/ TRACE [facility] Comment on above: Performed By: #### U AMIC #### [facility] [address] [address] [address] Bertha Duncan Urobilinogen Qn (U) 0.2 {[place]'U}/dL Normal 0.2 - 1. 0 [facility] Comment on above: Performed By: #### U AMIC #### [facility] [address] [place] [address] Dr. Bertha Duncan WBC 0-2 Abnormal NONE SEEN [facility] Comment on above: Performed By: #### U AMIC #### [facility] [address] [place] [address] Dr. Bertha Duncan Urinalysis with Microscopico n 01-02-2022 Bacteria, UA 1+ Abnormal None [facility] Bilirubin Urine Negative NEGATIVE [facility] Color, UA Yellow Yellow [facility] Epithelial Cells UA 5 TO 10 [facility] Glucose, Ur 1+ Abnormal NEGATIVE [facility] Interpretation and review of laboratory results Abnormal [facility] Ketones Ql (U) Negative NEGATIVE [facility] Leukocyte esterase Test strip Ql (U) MODERATE Abnormal NEGATIVE [facility] Nitrite, Urine Negative NEGATIVE [facility] pH, UA 6.5 5 - 9 [facility] Protein, UA Negative NEGATIVE [facility] RBC, UA 0 TO 2 [facility] Specific [place], UA 1.010 1.01 - 1.02 [facility] Turbidity UA SLIGHTLY CLOUDY Abnormal Clear [facility] Urine Hgb Negative NEGATIVE [facility] Urobilinogen, Urine Normal Normal [facility] WBC, UA 5 TO 10 [facility] CULTURE URINEon 11-21-2021 CULTURE URINE Culture Observations : NO GROWTH. Normal [facility] Comment on above: Performed By: #### U MICRO, UARMICR #### [facility] [address] [address] [address] Bertha Duncan PROF CHEM 8 (BAS METB)on Anion gap [Moles/Vol] 11.2 mmol/L [facility] Comment on above: Performed By: #### U MICRO, UARMICR #### [facility] [address] [address] [address] Bertha Duncan Calcium [Mass/Vol] 9.0 mg/dL Normal 8.5-10.1 [facility] Comment on above: Performed By: #### U MICRO, UARMICR #### [facility] [address] [address] [address] Bertha Duncan Chloride [Moles/Vol] 106 mmol/L Normal 98-[address] [facility] Comment on above: Performed By: #### U MICRO, UARMICR #### [facility] [address] [place] [address] Dr. Bertha Duncan CO2 [Moles/Vol] 25.7 mmol/L Normal 21.0-32.0 [facility] Comment on above: Performed By: #### U MICRO, UARMICR #### [facility] [address] [address] [address] Bertha Duncan Creatinine [Mass/Vol] 0.74 mg/dL Normal 0.55-1.[address] [facility] Comment on above: Performed By: #### U MICRO, UARMICR #### [facility] [address] [address] [address] Bertha Duncan EGFR-AF GREENLANDIC >60 Normal >=60 [facility] Comment on above: Performed By: #### U MICRO, UARMICR #### [facility] [address] [address] [address] Bertha Duncan EGFR-NON AF GREENLANDIC >60 Normal >=[address] [facility] Comment on above: Performed By: #### U MICRO, UARMICR #### [facility] [address] [address] [address] Bertha Duncan Glucose [Mass/Vol] 93 mg/dL Normal 74-106 [facility] Comment on above: Performed By: #### U MICRO, UARMICR #### [facility] [address] [address] [address] Bertha Duncan Potassium [Moles/Vol] 3.9 mmol/L Normal 3.5-5.[address] [facility] Comment on above: Performed By: #### U MICRO, UARMICR #### [facility] [address] [address] [address] Bertha Duncan Sodium [Moles/Vol] 139 mmol/L Normal 136-145 [facility] Comment on above: Performed By: #### U MICRO, UARMICR #### [facility] [address] [address] [address] Bertha Duncan Urea nitrogen [Mass/Vol] 8.0 mg/dL Normal 6.4-19.[address] [facility] Comment on above: Performed By: #### U MICRO, UARMICR #### [facility] [address] [address] [address] Bertha Duncan Urea nitrogen/Creatinine [Mass ratio] 10.8 mg/mg Normal [facility] Comment on above: Performed By: #### U MICRO, UARMICR #### [facility] [address] [address] [address] Bertha Duncan PROTEIN RAND URINEon 022 UR PROT 12.1 mg/dL Critically high <=11.9 [facility] Comment on above: Performed By: #### P ROTU #### [facility] [address] [address] [address] Bertha Duncan UA RANDOMon 11-21-2021 Bilirubin Ql (U) Negative Normal NEGATIVE [facility] Comment on above: Performed By: #### U A #### [facility] [address] [place] [address] Dr. Bertha Duncan Clarity (U) CLEAR Normal CLEAR [facility] Comment on above: Performed By: #### U A #### [facility] [address] [place] [address] Dr. Bertha Duncan Color (U) YELLOW Normal YELLOW [facility] Comment on above: Performed By: #### U A #### [facility] [address] [address] [address] Bertha Duncan Glucose Ql (U) 500 mg/dl Abnormal NEGATIVE [facility] Comment on above: Performed By: #### U A #### [facility] [address] [place] [address] Dr. Bertha Duncan Hemoglobin Ql (U) Negative Normal NEGATIVE [facility] Comment on above: Performed By: #### U A #### [facility] [address] [address] [address] Bertha Duncan Ketones Ql (U) Negative Normal NEGATIVE [facility] Comment on above: Performed By: #### U A #### [facility] [address] [place] [address] Dr. Bertha Duncan LEUKOCYTES TRACE Abnormal NEGATIVE [facility] Comment on above: Performed By: #### U A #### [facility] [address] [place] [address] Dr. Bertha Duncan Nitrite Ql (U) Negative Normal NEGATIVE [facility] Comment on above: Performed By: #### U A #### [facility] [address] [place] [address] Dr. Bertha Duncan pH (U) 6.0 [pH] Normal 5-[address] [facility] Comment on above: Performed By: #### U A #### [facility] [address] [place] [address] Dr. Bertha Duncan SPEC GRAVITY 1.015 Normal 1.005-<=1.[address] [facility] Comment on above: Performed By: #### U A #### [facility] [address] [place] [address] Dr. Bertha Duncan UA PROTEIN Negative Normal NEGATIVE/ TRACE [facility] Comment on above: Performed By: #### U A #### [facility] [address] [place] [address] Dr. Bertha Duncan Urobilinogen Qn (U) 0.2 {[place]'U}/dL Normal 0.2 - 1. [address] [facility] Comment on above: Performed By: #### U A #### [facility] [address] [place] [address] Dr. Bertha Duncan CULTURE URINEon 11-13-2021 CULTURE URINE Isolate 1 Staphylococcus haemolyticus >100,000 cfu/mL of ORGANISM 1 Staphylococcus haemolyticus ANTIBIOTIC M.I.C RX STATUS Beta-Lactamase Pos POS F Cefoxitin Screen Pos POS F Benzylpenicillin >=0.5 R F Gentamicin >=16 R F Ciprofloxacin >=8 R F Levofloxacin >=8 R F Moxifloxacin 2 S F Inducible Clindamycin Resistance Neg NEG F Quinupristin/Dalfopris tin <=0.25 S F Linezolid 2 S F Vancomycin 1 S F Tetracycline <=1 S F Nitrofurantoin <=16 S F Rifampicin <=0.5 S F Trimethoprim/Sulfameth oxazole 160 R F Oxacillin >=4 R F Normal [facility] Comment on above: Performed By: #### U MICRO, UARMICR #### [facility] [address] [place] [address] Dr. Bertha Duncan CBC AUTO DIFFon 11-10-2021 BASO # 0.1 103/ul Normal 0.0-0.[address] [facility] Comment on above: Performed By: #### C BC #### [facility] [address] [address] [address] Bertha Duncan Basophils/100 WBC (Bld) 0.5 % Normal 0.2-2.[address] [facility] Comment on above: Performed By: #### C BC #### [facility] [address] [place] [address] Dr. Bertha Duncan EO # 0.2 103/ul Normal 0.0-0.[address] [facility] Comment on above: Performed By: #### C BC #### [facility] [address] [place] [address] Dr. Bertha Duncan Eosinophils/100 WBC (Bld) 1.9 % Normal 0.9-7.[address] [facility] Comment on above: Performed By: #### C BC #### [facility] [address] [place] [address] Dr. Bertha Duncan Erythrocyte distribution width (RBC) [Ratio] 12.2 % Normal 11.0-15.[address] [facility] Comment on above: Performed By: #### C BC #### [facility] [address] [place] [address] Dr. Bertha Duncan Hematocrit (Bld) [Volume fraction] 39.0 % Normal 36.0-48.[address] [facility] Comment on above: Performed By: #### C BC #### [facility] [address] [place] [address] Dr. Bertha Duncan Hemoglobin (Bld) [Mass/Vol] 12.7 g/dL Normal 12.0-16.[address] [facility] Comment on above: Performed By: #### C BC #### [facility] [address] [place] [address] Dr. Bertha Duncan IG # 0.02 10e3/ul Normal 0.00-0.[address] [facility] Comment on above: Performed By: #### C BC #### [facility] [address] [place] [address] Dr. Bertha Duncan IG % 0.2 % Normal 0.0-0.5 [facility] Comment on above: Performed By: #### C BC #### [facility] [address] [place] [address] Dr. Bertha Duncan LYMPH # 3.1 103/ul Normal 1.2-3.[address] [facility] Comment on above: Performed By: #### C BC #### [facility] [address] [place] [address] Dr. Bertha Duncan Lymphocytes/100 WBC (Bld) 29.9 % Normal 20.5-60.[address] [facility] Comment on above: Performed By: #### C BC #### [facility] [address] [place] [address] Dr. Bertha Duncan MANUAL DIFF REQ NO Normal [facility] Comment on above: Performed By: #### C BC #### [facility] [address] [place] [address] Dr. Bertha Duncan MCH (RBC) [Entitic mass] 28.0 pg Normal 26.7-34.[address] [facility] Comment on above: Performed By: #### C BC #### [facility] [address] [place] [address] Dr. Bertha Duncan MCHC (RBC) [Mass/Vol] 32.6 g/dL Normal 29.9-35.[address] [facility] Comment on above: Performed By: #### C BC #### [facility] [address] [place] [address] Dr. Bertha Duncan MCV (RBC) [Entitic vol] 85.9 fL Normal 81.0-99.[address] [facility] Comment on above: Performed By: #### C BC #### [facility] [address] [place] [address] Dr. Bertha Duncan MONO # 0.7 103/ul Normal 0.3-0.[address] [facility] Comment on above: Performed By: #### C BC #### [facility] [address] [place] [address] Dr. Bertha Duncan Monocytes/100 WBC (Bld) 7.0 % Normal 1.7-12.[address] [facility] Comment on above: Performed By: #### C BC #### [facility] [address] [place] [address] Dr. Bertha Duncan NEUT # 6.3 103/ul Normal 1.4-6.[address] [facility] Comment on above: Performed By: #### C BC #### [facility] [address] [place] [address] Dr. Bertha Duncan Neutrophils/100 WBC (Bld) 60.5 % Normal 43.0-75.[address] [facility] Comment on above: Performed By: #### C BC #### [facility] [address] [place] [address] Dr. Bertha Duncan Platelet mean volume (Bld) [Entitic vol] 9.6 fL Normal 9.5-13.[address] [facility] Comment on above: Performed By: #### C BC #### [facility] [address] [place] [address] Dr. Bertha Duncan PLT 393 103/ul Normal 150-450 [facility] Comment on above: Performed By: #### C BC #### [facility] [address] [place] [address] Dr. Bertha Duncan RBC 4.54 106/ul Normal 4.20-5.[address] [facility] Comment on above: Performed By: #### C BC #### [facility] [address] [place] [address] Dr. Bertha Duncan WBC 10.4 103/ul Normal 4.0-11.[address] [facility] Comment on above: Performed By: #### C BC #### [facility] [address] [place] [address] Dr. Bertha Duncan UA (CLEAN/CATCH) MICROSCOPIC IF INDICATEon 11-10-2021 Bilirubin Ql (U) Negative Normal NEGATIVE [facility] Comment on above: Performed By: #### U MICRO, UARMICR #### [facility] [address] [place] [address] Dr. Bertha Duncan Clarity (U) SL CLOUDY Abnormal CLEAR [facility] Comment on above: Performed By: #### U MICRO, UARMICR #### [facility] [address] [address] [address] Bertha Duncan Color (U) LT. YELLOW Normal YELLOW [facility] Comment on above: Performed By: #### U MICRO, UARMICR #### [facility] [address] [address] [address] Bertha Duncan Glucose Ql (U) 100 mg/dl Abnormal NEGATIVE [facility] Comment on above: Performed By: #### U MICRO, UARMICR #### [facility] [address] [address] [address] Bertha Duncan Hemoglobin Ql (U) Negative Normal NEGATIVE [facility] Comment on above: Performed By: #### U MICRO, UARMICR #### [facility] [address] [address] [address] Bertha Duncan Ketones Ql (U) Negative Normal NEGATIVE [facility] Comment on above: Performed By: #### U MICRO, UARMICR #### [facility] [address] [address] [address] Bertha Duncan LEUKOCYTES TRACE Abnormal NEGATIVE [facility] Comment on above: Performed By: #### U MICRO, UARMICR #### [facility] [address] [place] [address] Dr. Bertha Duncan Nitrite Ql (U) Negative Normal NEGATIVE [facility] Comment on above: Performed By: #### U MICRO, UARMICR #### [facility] [address] [place] [address] Dr. Bertha Duncan pH (U) 7.0 [pH] Normal 5-[address] [facility] Comment on above: Performed By: #### U MICRO, UARMICR #### [facility] [address] [address] [address] Bertha Duncan SPEC GRAVITY 1.015 Normal 1.005-<=1.[address] [facility] Comment on above: Performed By: #### U MICRO, UARMICR #### [facility] [address] [place] [address] Dr. Bertha Duncan UA PROTEIN Negative Normal NEGATIVE/ TRACE [facility] Comment on above: Performed By: #### U MICRO, UARMICR #### [facility] [address] [address] [address] Bertha Duncan UR MICRO IND INDICATED Normal [facility] Comment on above: Performed By: #### U MICRO, UARMICR #### [facility] [address] [place] [address] Dr. Bertha Duncan Urobilinogen Qn (U) 0.2 {[place]'U}/dL Normal 0.2 - 1. 0 [facility] Comment on above: Performed By: #### U MICRO, UARMICR #### [facility] [address] [place] [address] Dr. Bertha Duncan URINE MICROSCOPIC ONLYon BACTERIA TRACE Abnormal NONE SEEN [facility] Comment on above: Performed By: #### U MICRO, UARMICR #### [facility] [address] [place] [address] Dr. Bertha Duncan Bacteria identified Cx Nom (U) INDICATED Normal [facility] Comment on above: Performed By: #### U MICRO, UARMICR #### [facility] [address] [place] [address] Dr. Bertha Duncan CAST NONE SEEN Normal NONE SEEN [facility] Comment on above: Performed By: #### U MICRO, UARMICR #### [facility] [address] [place] [address] Dr. Bertha Duncan Crystals LM Nom (Urine sed) NONE SEEN Normal NONE SEEN [facility] Comment on above: Performed By: #### U MICRO, UARMICR #### [facility] [address] [place] [address] Dr. Bertha Duncan Epithelial cells LM Ql (Urine sed) RARE Normal NONE SEEN /RARE [facility] Comment on above: Performed By: #### U MICRO, UARMICR #### [facility] [address] [place] [address] Dr. Bertha Duncan MUCOUS TRACE Abnormal NONE SEEN [facility] Comment on above: Performed By: #### U MICRO, UARMICR #### [facility] [address] [place] [address] Dr. Bertha Duncan RBC 0-2 Normal 0-2 [facility] Comment on above: Performed By: #### U MICRO, UARMICR #### [facility] [address] [place] [address] Dr. Bertha Duncan WBC 2-5 Abnormal NONE SEEN [facility] Comment on above: Performed By: #### U MICRO, UARMICR #### [facility] [address] [address] [address] Bertha Duncan CULTURE URINEon 11-02-2021 CULTURE URINE Culture Observations : HEAVY GROWTH OF MIXED GENITAL BEAU. NO POTENTIAL PATHOGENS SEEN. Normal [facility] Comment on above: Performed By: #### U MICRO, UARMICR #### [facility] [address] [place] [address] Dr. Bertha Duncan UA (CLEAN/CATCH) MANUFACTURING PROCESS TECHNICIAN/MICRO I F IND.on 11-02-2021 Bilirubin Ql (U) Negative Normal NEGATIVE [facility] Comment on above: Performed By: #### U MICRO, UACSIND #### [facility] [address] [place] [address] Dr. Bertha Duncan Clarity (U) CLEAR Normal CLEAR [facility] Comment on above: Performed By: #### U MICRO, UACSIND #### [facility] [address] [place] [address] Dr. Bertha Duncan Color (U) LT. YELLOW Normal YELLOW [facility] Comment on above: Performed By: #### U MICRO, UACSIND #### [facility] [address] [place] [address] Dr. Bertha Duncan Glucose Ql (U) 250 mg/dl Abnormal NEGATIVE [facility] Comment on above: Performed By: #### U MICRO, UACSIND #### [facility] [address] [place] [address] Dr. Bertha Duncan Hemoglobin Ql (U) SMALL Abnormal NEGATIVE [facility] Comment on above: Performed By: #### U MICRO, UACSIND #### [facility] [address] [place] [address] Dr. Bertha Duncan Ketones Ql (U) Negative Normal NEGATIVE [facility] Comment on above: Performed By: #### U MICRO, UACSIND #### [facility] [address] [place] [address] Dr. Bertha Duncan LEUKOCYTES LARGE Abnormal NEGATIVE [facility] Comment on above: Performed By: #### U MICRO, UACSIND #### [facility] [address] [address] [address] Bertha Duncan Nitrite Ql (U) Negative Normal NEGATIVE [facility] Comment on above: Performed By: #### U MICRO, UACSIND #### [facility] [address] [address] [address] Bertha Duncan pH (U) 6.0 [pH] Normal 5-[address] [facility] Comment on above: Performed By: #### U MICRO, UACSIND #### [facility] [address] [place] [address] Dr. Bertha Duncan SPEC GRAVITY 1.025 Normal 1.005-<=1.[address] [place] [address] Comment on above: Performed By: #### U MICRO, UACSIND #### [facility] [address] [place] [address] Dr. Bertha Duncan UA PROTEIN Negative Normal NEGATIVE/ TRACE [facility] Comment on above: Performed By: #### U MICRO, UACSIND #### [facility] [address] [place] [address] Dr. Bertha Duncan UR MICRO IND INDICATED Normal [facility] Comment on above: Performed By: #### U MICRO, UACSIND #### [facility] [address] [place] [address] Dr. Bertha Duncan Urobilinogen Qn (U) 0.2 {[place]'U}/dL Normal 0.2 - 1. [address] [facility] Comment on above: Performed By: #### U MICRO, UACSIND #### [facility] [address] [place] [address] Dr. Bertha Duncan URINE MICROSCOPIC ONLYon BACTERIA SMALL Abnormal NONE SEEN [facility] Comment on above: Performed By: #### U MICRO, UACSIND #### [facility] [address] [address] [address] Bertha Duncan Bacteria identified Cx Nom (U) INDICATED Normal [facility] Comment on above: Performed By: #### U MICRO, UACSIND #### [facility] [address] [address] [address] Bertha Duncan CAST NONE SEEN Normal NONE SEEN [facility] Comment on above: Performed By: #### U MICRO, UACSIND #### [facility] [address] [place] [address] Dr. Bertha Duncan Crystals LM Nom (Urine sed) NONE SEEN Normal NONE SEEN [facility] Comment on above: Performed By: #### U MICRO, UACSIND #### [facility] [address] [place] [address] Dr. Bertha Duncan Epithelial cells LM Ql (Urine sed) MODERATE Abnormal NONE SEEN /RARE [facility] Comment on above: Performed By: #### U MICRO, UACSIND #### [facility] [address] [place] [address] Dr. Bertha Duncan MUCOUS TRACE Abnormal NONE SEEN [facility] Comment on above: Performed By: #### U MICRO, UACSIND #### [facility] [address] [place] [address] Dr. Bertha Duncan RBC 5-10 Abnormal 0-2 [facility] Comment on above: Performed By: #### U MICRO, UACSIND #### [facility] [address] [place] [address] Dr. Bertha Duncan WBC 10-20 Abnormal NONE SEEN [facility] Comment on above: Performed By: #### U MICRO, UACSIND #### [facility] [address] [place] [address] Dr. Bertha Duncan US KIDNEYS BLADDERon 022 US KIDNEYS BLADDER EXAMINATION: US KIDNEYS BLADDER HISTORY: Blood in urine COMPARISON: CT abdomen pelvis 06/23/2021 TECHNIQUE: Ultrasound examination was performed of the kidneys and urinary bladder. FINDINGS: RIGHT KIDNEY: Lobular contour consistent with normal variation of persistent lobulation. No evidence of pelvocaliectasis, mass, or calculi. Normal renal cortical parenchymal echogenicity. Color Doppler demonstrates blood flow within the kidney. Kidney: 12.3 x 5.7 x 5.0 cm LEFT KIDNEY: [Lobular contour consistent with normal variation of persistent lobulation. No evidence of pelvocaliectasis, mass, or calculi. Normal renal cortical parenchymal echogenicity. Color Doppler demonstrates blood flow within the kidney. Kidney: 12.1 x 4.6 x 6.8 cm BLADDER: Small amount of mobile debris within the urinary bladder; blood products versus proteinaceous debris. No visible wall thickening, mass, or calculi. Prevoid volume: 910 mL. Post void residual: 5 mL URETERAL JETS: Visualized bilaterally. IMPRESSION: 1. Large volume of the urinary bladder which empties completely during voiding. 2. Small amount of debris within the bladder, likely blood products. No appreciable mass, or stones to account for blood products. Electronically authenticated by: ARTEM WILLS Date: 2021-11-02 18:01 Normal [facility] CBC AUTO DIFFon 10-27-2021 BASO # 0.0 103/ul Normal 0.0-0.[address] [facility] Comment on above: Performed By: #### U MICRO, UARMICR #### [facility] [address] [address] [address] Bertha Duncan Basophils/100 WBC (Bld) 0.4 % Normal 0.2-2.[address] [facility] Comment on above: Performed By: #### U MICRO, UARMICR #### [facility] [address] [address] [address] Bertha Duncan EO # 0.1 103/ul Normal 0.0-0.[address] [facility] Comment on above: Performed By: #### U MICRO, UARMICR #### [facility] [address] [address] [address] Bertha Duncan Eosinophils/100 WBC (Bld) 1.5 % Normal 0.9-7.0 [facility] [facility] Comment on above: Performed By: #### U MICRO, UARMICR #### [facility] [address] [address] [address] Bertha Duncan Erythrocyte distribution width (RBC) [Ratio] 12.8 % Normal 11.0-15.[address] [facility] Comment on above: Performed By: #### U MICRO, UARMICR #### [facility] [address] [place] [address] Dr. Bertha Duncan Hematocrit (Bld) [Volume fraction] 36.0 % Normal 36.0-48.[address] [facility] Comment on above: Performed By: #### U MICRO, UARMICR #### [facility] [address] [place] [address] Dr. Bertha Duncan Hemoglobin (Bld) [Mass/Vol] 11.7 g/dL Critically low 12.0-16.[address] [facility] Comment on above: Performed By: #### U MICRO, UARMICR #### [facility] [address] [place] [address] Dr. Bertha Duncan IG # 0.02 10e3/ul Normal 0.00-0.[address] [facility] Comment on above: Performed By: #### U MICRO, UARMICR #### [facility] [address] [place] [address] Dr. Bertha Duncan IG % 0.3 % Normal 0.0-0.[address] [facility] Comment on above: Performed By: #### U MICRO, UARMICR #### [facility] [address] [place] [address] Dr. Bertha Duncan LYMPH # 2.2 103/ul Normal 1.2-3.8 [facility] Comment on above: Performed By: #### U MICRO, UARMICR #### [facility] [address] [place] [address] Dr. Bertha Duncan Lymphocytes/100 WBC (Bld) 30.2 % Normal 20.5-60.0 [facility] Comment on above: Performed By: #### U MICRO, UARMICR #### [facility] [address] [place] [address] Dr. Bertha Duncan MANUAL DIFF REQ NO Normal [facility] Comment on above: Performed By: #### U MICRO, UARMICR #### [facility] [address] [place] [address] Dr. Bertha Duncan MCH (RBC) [Entitic mass] 28.5 pg Normal 26.7-34.0 [facility] Comment on above: Performed By: #### U MICRO, UARMICR #### [facility] [address] [place] [address] Dr. Bertha Duncan MCHC (RBC) [Mass/Vol] 32.5 g/dL Normal 29.9-35.2 [facility] Comment on above: Performed By: #### U MICRO, UARMICR #### [facility] [address] [place] [address] Dr. Bertha Duncan MCV (RBC) [Entitic vol] 87.8 fL Normal 81.0-99.[address] [facility] Comment on above: Performed By: #### U MICRO, UARMICR #### [facility] [address] [place] [address] Dr. Bertha Duncan MONO # 0.5 103/ul Normal 0.3-0.8 [facility] Comment on above: Performed By: #### U MICRO, UARMICR #### [facility] [address] [place] [address] Dr. Bertha Duncan Monocytes/100 WBC (Bld) 6.9 % Normal 1.7-12.[address] [facility] Comment on above: Performed By: #### U MICRO, UARMICR #### [facility] [address] [place] [address] Dr. Bertha Duncan NEUT # 4.5 103/ul Normal 1.4-6.5 [facility] Comment on above: Performed By: #### U MICRO, UARMICR #### [facility] [address] [place] [address] Dr. Bertha Duncan Neutrophils/100 WBC (Bld) 60.7 % Normal 43.0-75.[address] [facility] Comment on above: Performed By: #### U MICRO, UARMICR #### [facility] [address] [place] [address] Dr. Bertha Duncan Platelet mean volume (Bld) [Entitic vol] 9.5 fL Normal 9.5-13.5 [facility] Comment on above: Performed By: #### U MICRO, UARMICR #### [facility] [address] [place] [address] Dr. Bertha Duncan PLT 360 103/ul Normal 150-450 [facility] Comment on above: Performed By: #### U MICRO, UARMICR #### [facility] [address] [place] [address] Dr. Bertha Duncan RBC 4.10 106/ul Critically low 4.20-5.40 [facility] Comment on above: Performed By: #### U MICRO, UARMICR #### [facility] [address] [place] [address] Dr. Bertha Duncan WBC 7.4 103/ul Normal 4.0-11.[address] [facility] Comment on above: Performed By: #### U MICRO, UARMICR #### [facility] [address] [place] [address] Dr. Bertha Duncan UA RANDOMon 10-27-2021 Bilirubin Ql (U) Negative Normal NEGATIVE [facility] Comment on above: Performed By: #### U A #### [facility] [address] [place] [address] Dr. Bertha Duncan Clarity (U) CLEAR Normal CLEAR [facility] Comment on above: Performed By: #### U A #### [facility] [address] [place] [address] Dr. Bertha Duncan Color (U) RED Abnormal YELLOW [facility] Comment on above: Performed By: #### U A #### [facility] [address] [place] [address] Dr. Bertha Duncan Glucose Ql (U) 250 mg/dl Abnormal NEGATIVE [facility] Comment on above: Performed By: #### U A #### [facility] [address] [place] [address] Dr. Bertha Duncan Hemoglobin Ql (U) LARGE Abnormal NEGATIVE [facility] Comment on above: Performed By: #### U A #### [facility] [address] [address] [address] Bertha Duncan Ketones Ql (U) Negative Normal NEGATIVE [facility] Comment on above: Performed By: #### U A #### [facility] [address] [address] [address] Bertha Duncan LEUKOCYTES Negative Normal NEGATIVE [facility] Comment on above: Performed By: #### U A #### [facility] [address] [place] [address] Dr. Bertha Duncan Nitrite Ql (U) Negative Normal NEGATIVE [facility] Comment on above: Performed By: #### U A #### [facility] [address] [place] [address] Dr. Bertha Duncan pH (U) 5.5 [pH] Normal 5-[address] [facility] Comment on above: Performed By: #### U A #### [facility] [address] [place] [address] Dr. Bertha Duncan SPEC GRAVITY 1.015 Normal 1.005-<=1.[address] [place] [address] Comment on above: Performed By: #### U A #### [facility] [address] [place] [address] Dr. Bertha Duncan UA PROTEIN TRACE Normal NEGATIVE/ TRACE [facility] Comment on above: Performed By: #### U A #### [facility] [address] [place] [address] Dr. Bertha Duncan Urobilinogen Qn (U) 0.2 {[place]'U}/dL Normal 0.2 - 1. [address] [facility] Comment on above: Performed By: #### U A #### [facility] [address] [place] [address] Dr. Bertha Duncan ABO/RHon 10-07-2021 ABO/Rh Positive [facility] Basic Metabolic Panel w/ Ref angelina to MGon 10-07-2021 Anion gap [Moles/Vol] 16 mmol/L 9 - 17 mmol/L [facility] Calcium [Mass/Vol] 9.8 mg/dL 8.6 - 10. 4 mg/dL [facility] Chloride [Moles/Vol] 98 mmol/L 98 - 10 7 mmol/L [facility] CO2 [Moles/Vol] 25 mmol/L 20 - 31 mmol/L [facility] Creatinine [Mass/Vol] 0.41 mg/dL Low 0.50 - 0.90 mg/dL [facility] GFR Non- Pediatric GFR requires additional information. Refer to [facility] website for calculator. >60 mL/min [facility] Glucose [Mass/Vol] 69 mg/dL Low 70 - 99 mg/dL [facility] Interpretation and review of laboratory results Abnormal [facility] Potassium [Moles/Vol] 4.1 mmol/L 3.7 - 5.3 mmol/L [facility] Sodium [Moles/Vol] 139 mmol/L 135 - 144 mmol/L [facility] Urea nitrogen (BldV) [Mass/Vol] 10 mg/dL 6 - 20 mg/dL [facility] Urea nitrogen/Creatinine (Bld) [Mass ratio] 24 High [facility] CBC with Auto Differentialon 10-07-2021 Absolute Eos # 0.23 [facility] Absolute Immature Granulocyte 0.19 [facility] Absolute Lymph # 3.34 [facility] Absolute [place] # 1.34 [facility] Basophils (Bld) [#/Vol] 0.06 10*3/uL [facility] Basophils/100 WBC (Bld) 0 % 0 - 2 % [facility] Eosinophils/100 WBC (Bld) 1 % 1 - 4 % [facility] Hematocrit (Bld) [Volume fraction] 35.9 % Low 36.3 - 47.1 % [facility] Hemoglobin (Bld) [Mass/Vol] 11.6 g/dL Low 11.9 - 15.1 g/dL [facility] Immature granulocytes/100 WBC (Bld) 1 % High 0 [facility] Interpretation and review of laboratory results Abnormal [facility] Lymphocytes/100 WBC (Bld) 18 % Low 25 - 45 % [facility] MCH (RBC) [Entitic mass] 28.8 pg 25.2 - 33.5 pg [facility] MCHC (RBC) [Mass/Vol] 32.3 g/dL 28.4 - 34.8 g/dL [facility] MCV (RBC) [Entitic vol] 89.1 fL 82.6 - 102.9 fL [facility] Monocytes/100 WBC (Bld) 7 % 2 - 8 % [facility] NRBC Automated 0.0 0.0 per 100 WBC [facility] Platelet distribution width (Bld) [Ratio] 12.4 % 11.8 - 14.4 % [facility] Platelet mean volume (Bld) [Entitic vol] 8.3 fL 8.1 - 13.5 fL [facility] Platelets (Bld) [#/Vol] 664 10*3/uL High [facility] RBC (Bld) [#/Vol] 4.03 10*6/uL 3.95 - 5.1 1 m/uL [facility] Segmented neutrophils/100 WBC (Bld) 73 % High 34 - 64 % [facility] Segs Absolute 13.24 High [facility] WBC (Bld) [#/Vol] 18.4 10*3/uL High [facility] HCG, Quantitative, on 10-07-2021 hCG Quant [id number] High <5 mIU/mL [facility] Comment on above: Non-preg premeno <=5 Postmeno <=8 Male <=3 If HCG results do not concur with clinical observations, additional testing to confirm results is recommended. Elevated results not associated with may be found in patients with other diseases such as tumors of the germ cells (testis, ovaries, etc.), bladder, pancreas, stomach, lungs, and liver. Interpretation and review of laboratory results Abnormal [facility] Hepatic Function Panelon Albumin [Mass/Vol] 4.1 g/dL 3.5 - 5.2 g/dL [facility] Albumin/Globulin [Mass ratio] 1.1 {ratio} [facility] ALP (Bld) [Catalytic activity/Vol] 86 U/L 35 - 104 U/L [facility] ALT [Catalytic activity/Vol] 15 U/L 5 - 33 U/L [facility] AST [Catalytic activity/Vol] 27 U/L <32 [facility] Bilirubin [Mass/Vol] 0.18 mg/dL Low 0.3 - 1 .2 mg/dL [facility] Bilirubin, Indirect Can not be calculated 0.00 - 1.00 mg/dL [facility] Bilirubin.indirect [Mass/Vol] mg/dL <0.31 mg/dL [facility] Free PSA/Total PSA [Mass fraction] 8.0 g/dL 6.4 - 8.3 g/dL [facility] Interpretation and review of laboratory results Abnormal [facility] Laboratory - Chemistry and C hemistry - challengeon 10-07-2021 GFR/1.73 sq M.predicted MDRD (S/P/Bld) [Vol rate/Area] [facility] Comment on above: Average GFR for <20 years old not available. Chronic Kidney Disease: <60 mL/min/1.73sq m Kidney failure: <15 mL/min/1.73sq m eGFR calculated using average adult body mass. Additional eGFR calculator available at: http://www.DreamDry/multiple_crcl_2012.htm Stage 1: Some kidney damage normal GFR Stage 2: Mild kidney damage GFR 60-89 Stage 3: Moderate kidney damage GFR 30-59 Stage 4: Severe kidney damage GFR 15-29 Stage 5: Severe kidney damage GFR <15 ESRD - chronic treatment by dialysis or transplant Lactate, Sepsison 10-07-2021 Interpretation and review of laboratory results Abnormal [facility] Lactic Acid, Sepsis 3.2 mmol/L High 0.5 - 1. 9 mmol/L [facility] Interpretation and review of laboratory results Abnormal [facility] Lactic Acid, Sepsis 3.0 mmol/L High 0.5 - 1. 9 mmol/L [facility] Lipaseon 10-07-2021 Lipase [Catalytic activity/Vol] 32 U/L 13 - 60 U/L [facility] Microscopic Urinalysison - [facility] Bacteria, UA TRACE Abnormal None [facility] Epithelial Cells UA 2 TO 5 [facility] Interpretation and review of laboratory results Abnormal [facility] RBC, UA 50 TO 100 [facility] WBC, UA 5 TO 10 [facility] Urinalysis with Reflex to Cu ltureon 10-07-2021 Bilirubin Urine Negative NEGATIVE [facility] Color, UA Yellow Yellow [facility] Glucose, Ur TRACE Abnormal NEGATIVE [facility] Interpretation and review of laboratory results Abnormal [facility] Ketones Ql (U) Negative NEGATIVE [facility] Leukocyte esterase Test strip Ql (U) TRACE Abnormal NEGATIVE [facility] Nitrite, Urine Negative NEGATIVE [facility] pH, UA 6.5 [facility] Protein, UA 1+ Abnormal NEGATIVE [facility] Specific [place], UA <1.005 Low [facility] Turbidity UA Clear Clear [facility] Urine Hgb 3+ Abnormal NEGATIVE [facility] Urobilinogen, Urine Normal Normal [facility] XR CHEST PORTABLEon 10-08-19 22 Other than mild atelectasis in the right perihilar area no acute lung disease. [facility] EXAMINATION: ONE XRAY VIEW OF THE CHEST 10/07/2021 6:13 pm COMPARISON: June 13, 2020 HISTORY: ORDERING SYSTEM PROVIDED HISTORY: Slight decreased breath sounds left lower lung TECHNOLOGIST PROVIDED HISTORY: Slight decreased breath sounds left lower lung FINDINGS: Mild atelectasis in the right perihilar area. No other active lung parenchymal or pleural disease. Heart, mediastinum and pleural surfaces appear unremarkable. [facility] Maedlaine Levine MD - 10/07/2021 EXAMINATION: ONE XRAY VIEW OF THE CHEST 10/07/2021 6:13 pm COMPARISON: June 13, 2020 HISTORY: ORDERING SYSTEM PROVIDED HISTORY: Slight decreased breath sounds left lower lung TECHNOLOGIST PROVIDED HISTORY: Slight decreased breath sounds left lower lung FINDINGS: Mild atelectasis in the right perihilar area. No other active lung parenchymal or pleural disease. Heart, mediastinum and pleural surfaces appear unremarkable. IMPRESSION: Other than mild atelectasis in the right perihilar area no acute lung disease. [facility] [place] [employer] Phone: Radiology Study observation (narrative) [facility] [place] [employer] Phone: XR CHEST PORTABLEOrdered By: Madelaine Levine on 10-07-2021 [facility] [place] [employer] Phone: US URINARY BLADDER LIMITEDon 07-20-2021 Right ureteral jet could not be visualized. Postvoid residual 212 mL. [facility] EXAMINATION: ULTRASOUND OF THE URINARY BLADDER 07/20/2021 COMPARISON: None. HISTORY: ORDERING SYSTEM PROVIDED HISTORY: Urinary tract infection without hematuria, site unspecified FINDINGS: Urinary bladder unremarkable in appearance with prevoid volume 495 mL. Right ureteral jet not demonstrated. Postvoid residual 212 mL. [facility] Nirmal Haskins DO - 07/20/2021 EXAMINATION: ULTRASOUND OF THE URINARY BLADDER 07/20/2021 COMPARISON: None. HISTORY: ORDERING SYSTEM PROVIDED HISTORY: Urinary tract infection without hematuria, site unspecified FINDINGS: Urinary bladder unremarkable in appearance with prevoid volume 495 mL. Right ureteral jet not demonstrated. Postvoid residual 212 mL. IMPRESSION: Right ureteral jet could not be visualized. Postvoid residual 212 mL. [employer] Phone: Radiology Study observation (narrative) [employer] Phone: US URINARY BLADDER LIMITEDOr dered By: Nirmal Haskins on 07-20-2021 [employer] Phone: Urinalysis with Microscopico n 07-12-2021 - [employer] Bacteria, UA 2+ Abnormal None [facility] [facility] Bilirubin U[facility], UA Yellow Yellow [employer] Epithelial Cells UA 2 TO 5 [facility] [facility] Glucose, Ur Negative NEGATIVE [facility] [facility] Interpretation and review of laboratory results Abnormal [employer] Ketones Ql (U) Negative NEGATIVE [facility] Leukocyte esterase Test strip Ql (U) LARGE Abnormal NEGATIVE [employer] [employer] Nitrite, Urine Negative NEGATIVE [facility] pH, UA 6.5 [employer] Protein, UA Negative NEGATIVE [facility] RBC, [facility]A 0 TO 2 [facility] Specific [place], UA 1.010 [employer] Turbidity UA Clear Clear [facility] Urine Hgb Negative NEGATIVE [facility] [employer] Urobilinogen, Urine Normal Normal [facility] [employer] WBC, UA 20 TO 50 [facility] [employer] APTTOrdered By: Louise martinez on 01-19-2021 aPTT Coag (Bld) [Time] 29.5 s [facility] [employer] Work Phone: Comment on above: IV Heparin Therapy Range: 62.0-94.0 CBC Auto DifferentialOrdered By: Louise Ordonez on 01-19-2021 Absolute Eos # 0.11 [facility] Work Phone: Absolute Immature Granulocyte 0.05 [facility] Work Phone: Absolute Lymph # 2.08 [facility] Work Phone: Absolute [place] # 0.60 [facility] Work Phone: Basophils (Bld) [#/Vol] 0.03 10*3/uL [employer] Work Phone: Basophils/100 WBC (Bld) 0 % 0 - 2 % [employer] Work Phone: Differential Type NOT REPORTED [employer] Work Phone: Eosinophils/100 WBC (Bld) 1 % 1 - 4 % [employer] Work Phone: Hematocrit (Bld) [Volume fraction] 43.7 % 36.3 - 47.1 % [employer] Work Phone: Hemoglobin.gastrointes tinal spec 1 Ql (Stl) 14.9 g/dL 11.9 - 15.1 g/dL [employer] Work Phone: Immature granulocytes/100 WBC (Bld) 1 % High 0 [employer] Work Phone: Interpretation and review of laboratory results Abnormal [employer] Work Phone: Lymphocytes/100 WBC (Bld) 21 % Low 25 - 45 % [employer] Phone: MCH (RBC) [Entitic mass] 30.3 pg 25.0 - 35.0 pg [employer] Phone: MCHC (RBC) [Mass/Vol] 34.1 g/dL 28.4 - 34.8 g/dL [employer] Phone: MCV (RBC) [Entitic vol] 88.8 fL 78.0 - 102.0 fL [employer] Phone: Monocytes/100 WBC (Bld) 6 % 2 - 8 % [employer] Phone: NRBC Automated 0.0 0.0 per 100 WBC [employer] Phone: Platelet distribution width (Bld) [Ratio] 12.3 % 11.8 - 14.4 % [employer] Phone: Platelet Estimate NOT REPORTED [employer] Phone: Platelet mean volume (Bld) [Entitic vol] 9.8 fL 8.1 - 13.5 fL [employer] Phone: Platelets (Bld) [#/Vol] 297 10*3/uL [employer] Phone: RBC (Bld) [#/Vol] 4.92 10*6/uL 3.95 - 5.1 1 m/uL [employer] Work Phone: RBC (Bld) [#/Vol] NOT REPORTED [employer] Phone: Segmented neutrophils/100 WBC (Bld) 71 % High 34 - 64 % [employer] Phone: Segs Absolute 6[employer] Work Phone: WBC (Bld) [#/Vol] 9.7 10*3/uL [employer] Phone: WBC (Bld) [#/Vol] NOT REPORTED [employer] Phone: [employer] Phone: Comprehensive Metabolic Pane lOrdered By: Louise Ordonez on 01-19-2021 Albumin [Mass/Vol] 5.1 g/dL 3.5 - 5.2 g/dL [employer] Phone: Albumin/Globulin [Mass ratio] 1.5 {ratio} [employer] Phone: ALP (Bld) [Catalytic activity/Vol] 90 U/L 35 - 104 U/L [employer] Phone: ALT [Catalytic activity/Vol] 22 U/L 5 - 33 U/L [employer] Phone: Anion gap [Moles/Vol] 14 mmol/L 9 - 17 mmol/L [employer] Phone: AST [Catalytic activity/Vol] 29 U/L <32 [employer] Phone: Bilirubin [Mass/Vol] 0.54 mg/dL 0.3 - 1 .2 mg/dL [employer] Phone: Calcium [Mass/Vol] 10.4 mg/dL 8.6 - 10. 4 mg/dL [employer] Phone: Chloride [Moles/Vol] 103 mmol/L 98 - 10 7 mmol/L [employer] Phone: CO2 [Moles/Vol] 26 mmol/L 20 - 31 mmol/L [employer] Phone: Creatinine [Mass/Vol] 0.52 mg/dL 0.50 - 0.90 mg/dL [employer] Phone: Free PSA/Total PSA [Mass fraction] 8.6 g/dL High 6.4 - 8.3 g/dL [employer] Phone: GFR NOT REPORTED >60 mL/min [facility] Work Phone: GFR Non- Pediatric GFR requires additional information. Refer to [facility] website for calculator. >60 mL/min [employer] Phone: Glucose [Mass/Vol] 82 mg/dL 70 - 99 mg/dL [employer] Phone: Interpretation and review of laboratory results Abnormal [employer] Phone: Potassium [Moles/Vol] 4.3 mmol/L 3.7 - 5.3 mmol/L [employer] Phone: Sodium [Moles/Vol] 143 mmol/L 135 - 144 mmol/L [employer] Phone: Urea nitrogen (BldV) [Mass/Vol] 15 mg/dL 6 - 20 mg/dL [employer] Phone: Urea nitrogen/Creatinine (Bld) [Mass ratio] 29 High [employer] Phone: [employer] Phone: EKG 12 LeadOrdered By: Morena Ordonez on 01-19-2021 Atrial Rate 63 BPM [employer] Phone: P [place] 33 degrees [employer] Phone: P-R Interval 136 ms [employer] Phone: Q-T Interval 386 ms [employer] Phone: QRS Duration 98 ms [employer] Phone: QTc Calculation (Bazett) 395 ms [employer] Phone: R [place] 63 degrees [employer] Phone: T [place] 47 degrees [employer] Phone: Ventricular Rate 63 BPM [employer] Phone: Normal sinus rhythm with sinus arrhythmia Normal ECG When compared with ECG of 13-JUN-2020 13:57, No significant change was found Confirmed by Marlyn Boyce MD ([id number]) on 01/19/2021 10:08:57 PM [employer] Phone: [place], Mhpn Incoming E kg Results From [employer] [facility] - 01/19/2021 10:09 PM EDT Normal sinus rhythm with sinus arrhythmia Normal ECG When compared with ECG of 13-JUN-2020 13:57, No significant change was found Confirmed by Marlyn Boyce MD ([id number]) on 01/19/2021 10:08:57 PM [employer] Phone: [employer] Phone: Laboratory - Chemistry and C hemistry - challengeOrdered By: Louise Ordonez on 01-19-2021 GFR/1.73 sq M.predicted MDRD (S/P/Bld) [Vol rate/Area] [employer] Phone: Comment on above: Average GFR for <20 years old not available. Chronic Kidney Disease: <60 mL/min/1.73sq m Kidney failure: <15 mL/min/1.73sq m eGFR calculated using average adult body mass. Additional eGFR calculator available at: http://www.DreamDry/multiple_crcl_2012.htm Stage 1: Some kidney damage normal GFR Stage 2: Mild kidney damage GFR 60-89 Stage 3: Moderate kidney damage GFR 30-59 Stage 4: Severe kidney damage GFR 15-29 Stage 5: Severe kidney damage GFR <15 ESRD - chronic treatment by dialysis or transplant No Panel InformationOrdered By: Louise Ordonez on 01-19-2021 [employer] Phone: Protime-INROrdered By: Morena Ordonez on 01-19-2021 INR Coag (Bld) [Relative time] 1.1 {INR} [employer] Phone: Comment on above: Non-therapeutic Range: INR = 0.9-1.2 Therapeutic Range: Moderate Anticoagulant Intensity: INR = 2.0-3.0 High Anticoagulant Intensity: INR = 2.5-3.5 PT Coag (PPP) [Time] 13.9 [facility] Work Phone: Living Will/POAon 10-12-2020 Living Will/POA [id number] 0CD:127 Normal [facility] Pathology Noteon 10-12-2020 Pathology Note [id number] .[id number]:127 Normal [facility] Ambulatory Clinical Summaryo n 10-11-2020 Ambulatory Clinical Summary {[id number] Normal [facility] General Surgery Office/Clini c Noteon 10-11-2020 General Surgery Office/Clinic Note Chief Complaint Post operative visit HPI Staff 4 Day s/p Cholecystectomy completed at [facility]. Present today with mother. Denies symptoms of nausea, vomiting, pain, fever, or chills. Taking Zofran PRN for nausea. Not taking anything for pain. History of Present Illness 4 days s/p LS cholecystectomy for gallstone pancreatitis; doing well, occasional nausea, none today, tolerating regular diet, no bms since surgery, took Miralax yesterday; no fevers, no drainage from incisions. Review of Systems PHQ Score Initial Depression Screen Score: 0 ROS - Provider Constitutional: no fever, no sweats, no weight loss. Eyes: no glasses, no blurred vision, no visual loss. ENMT: no dentures, no hoarseness, no swallowing difficulties, no hearing loss, no ear infection(s), no nose bleeds. Cardiovascular: normal blood pressure, no chest pain, regular heartbeat, no heart murmur. Respiratory: no shortness of breath, no cough, no asthma, no wheezing. Gastrointestinal: no nausea, no vomiting, no diarrhea, mild constipation, no blood in stool, no change in bowel habits, mild abdominal pain, no hepatitis. Genitourinary: no kidney stones, no urine infection, no dysuria. Musculoskeletal: no pain, no weakness. Skin: no changing moles, no rash, no skin lumps. Neurologic: no seizures, no epilepsy, no headache. Psychiatric: no emotional or psychiatric problem. Heme/Lymph: no bleeding problems, no anemia, no blood clots, no transfusions. Allergy/Immunologic: no swollen lymph nodes/glands, no IV drug abuse. Other: Additional ROS info: Except as noted in the above Review of Systems and in the History of Present Illness, all other systems have been reviewed and are negative or noncontributory. Physical Exam Vitals & Measurements T: 36.7 ?C (Tympanic) HT: 172.7 cm HT: 172.72 cm WT: 85.7 kg WT: 85.7 kg BMI: 28.73 abd: soft, normal bs, nontender, nondistended; incisions with glue intact, no erythema or drainage, small amount resolving ecchymoses. Assessment/Plan 1. Gallstone pancreatitis (K85.10: Biliary acute pancreatitis without necrosis or infection) doing well, gallbladder pathology pending; continue no lifting > 10 lbs for 3 1/2 weeks; call with problems/questions. Follow-up No qualifying data available Patient Education Exercising to Lose Weight Problem List/Past Medical History Ongoing Acute disruption of syndesmosis of ankle joint Asthma BMI 28.0-28.9,adult Gallstone pancreatitis Historical Ankle instability Procedure/Surgical History Cholecystectomy (10/07/2020), Arthroscopy of ankle, History of adenoidectomy, History of tonsillectomy, Myringotomy and insertion of T tube, Tibial osteochondral defect of ankle. Medications No active medications Allergies No Known Medication Allergies Social History Tobacco Never (less than 100 in lifetime) Tobacco Use:. Never Smokeless Tobacco Use:., 10/11/2020 [facility] Comment on above: Result Comment: Elec tronically Signed By: KIARA ARIAS, Francisco Estrella.kimberly\Date and Time Signed: 10/11/20 13:37 EDT Patient Educationon 10-12-19 Patient Education Physical Medicine an d Rehabilitation Exercising to Lose Weight Exercise is structured, repetitive physical activity to improve fitness and health. Getting regular exercise is important for everyone. It is especially important if you are overweight. Being overweight increases your risk of heart disease, stroke, diabetes, high blood pressure, and several types of cancer. Reducing your calorie intake and exercising can help you lose weight. Exercise is usually categorized as moderate or vigorous intensity. To lose weight, most people need to do a certain amount of moderate-intensity or vigorous-intensity exercise each week. Moderate-intensity exercise Moderate-intensity exercise is any activity that gets you moving enough to burn at least three times more energy (calories) than if you were sitting. Examples of moderate exercise include: ? Walking a mile in 15 minutes. ? Doing light yard work. ? Biking at an easy pace. Most people should get at least 150 minutes (2 hours and 30 minutes) a week of moderate-intensity exercise to maintain their body weight. Vigorous-intensity exercise Vigorous-intensity exercise is any activity that gets you moving enough to burn at least six times more calories than if you were sitting. When you exercise at this intensity, you should be working hard enough that you are not able to carry on a conversation. Examples of vigorous exercise include: ? Running. ? Playing a team sport, such as football, basketball, and soccer. ? Jumping rope. Most people should get at least 75 minutes (1 hour and 15 minutes) a week of vigorous-intensity exercise to maintain their body weight. How can exercise affect me? When you exercise enough to burn more calories than you eat, you lose weight. Exercise also reduces body fat and builds muscle. The more muscle you have, the more calories you burn. Exercise also: ? Improves mood. ? Reduces stress and tension. ? Improves your overall fitness, flexibility, and endurance. ? Increases bone strength. The amount of exercise you need to lose weight depends on: ? Your age. ? The type of exercise. ? Any health conditions you have. ? Your overall physical ability. Talk to your health care provider about how much exercise you need and what types of activities are safe for you. What actions can I take to lose weight? Nutrition ? Make changes to your diet as told by your health care provider or diet and nutrition partner (dietitian). This may include: ? Eating fewer calories. ? Eating more protein. ? Eating less unhealthy fats. ? Eating a diet that includes fresh fruits and vegetables, whole grains, low-fat dairy products, and lean protein. ? Avoiding foods with added fat, salt, and sugar. ? Drink plenty of water while you exercise to prevent dehydration or heat stroke. Activity ? Choose an activity that you enjoy and set realistic goals. Your health care provider can help you make an exercise plan that works for you. ? Exercise at a moderate or vigorous intensity most days of the week. ? The intensity of exercise may vary from person to person. You can tell how intense a workout is for you by paying attention to your breathing and heartbeat. Most people will notice their breathing and heartbeat get faster with more intense exercise. ? Do resistance training twice each week, such as: ? Push-ups. ? Sit-ups. ? Lifting weights. ? Using resistance bands. ? Getting short amounts of exercise can be just as helpful as long structured periods of exercise. If you have trouble finding time to exercise, try to include exercise in your daily routine. ? Get up, stretch, and walk around every 30 minutes throughout the day. ? Go for a walk during your lunch break. ? Park your car farther away from your destination. ? If you take public transportation, get off one stop early and walk the rest of the way. ? Make phone calls while standing up and walking around. ? Take the stairs instead of elevators or escalators. ? Wear comfortable clothes and shoes with good support. ? Do not exercise so much that you hurt yourself, feel dizzy, or get very short of breath. Where to find more information ? U.[place]. Department of Health and Human Services: www.hhs.gov ? Centers for Disease Control and Prevention (CDC): www.cdc.gov Contact a health care provider: ? Before starting a new exercise program. ? If you have questions or concerns about your weight. ? If you have a medical problem that keeps you from exercising. Get help right away if you have any of the following while exercising: ? Injury. ? Dizziness. ? Difficulty breathing or shortness of breath that does not go away when you stop exercising. ? Chest pain. ? Rapid heartbeat. Summary ? Being overweight increases your risk of heart disease, stroke, diabetes, high blood pressure, and several types of cancer. ? Losing weight paul (more content not included)... Normal [facility] RAD - MRI Reporton RAD - MRI Report [id number]:[id number] Normal [facility] CBC Auto DifferentialOrdered By: Louise Mccullough on 10-01-2020 Absolute Eos # 0.10 [facility] Work Phone: Absolute Immature Granulocyte <0.03 [employer] Work Phone: Absolute Lymph # 2.27 [facility] Work Phone: Absolute [place] # 0.54 [facility] Work Phone: Basophils (Bld) [#/Vol] 0.04 10*3/uL [employer] Work Phone: Basophils/100 WBC (Bld) 1 % 0 - 2 % [employer] Work Phone: Differential Type NOT REPORTED [employer] Phone: Eosinophils/100 WBC (Bld) 1 % 1 - 4 % [employer] Phone: Hematocrit (Bld) [Volume fraction] 43.3 % 36.3 - 47.1 % [employer] Phone: Hemoglobin.gastrointes tinal spec 1 Ql (Stl) 14.5 g/dL 11.9 - 15.1 g/dL [employer] Phone: Immature granulocytes/100 WBC (Bld) 0 % 0 [employer] Phone: Lymphocytes/100 WBC (Bld) 30 % 25 - 45 % [employer] Phone: MCH (RBC) [Entitic mass] 29.4 pg 25.0 - 35.0 pg [employer] Phone: MCHC (RBC) [Mass/Vol] 33.5 g/dL 28.4 - 34.8 g/dL [employer] Phone: MCV (RBC) [Entitic vol] 87.8 fL 78.0 - 102.0 fL [employer] Phone: Monocytes/100 WBC (Bld) 7 % 2 - 8 % [employer] Phone: NRBC Automated 0.0 0.0 per 100 WBC [employer] Phone: Platelet distribution width (Bld) [Ratio] 13.1 % 11.8 - 14.4 % [employer] Phone: Platelet Estimate NOT REPORTED [employer] Phone: Platelet mean volume (Bld) [Entitic vol] 10.9 fL 8.1 - 13.5 fL [employer] Phone: Platelets (Bld) [#/Vol] 313 10*3/uL [employer] Phone: RBC (Bld) [#/Vol] 4.93 10*6/uL 3.95 - 5.1 1 m/uL [employer] Phone: RBC (Bld) [#/Vol] NOT REPORTED [employer] Phone: Segmented neutrophils/100 WBC (Bld) 61 % 34 - 64 % [employer] Phone: Segs Absolute 4.57 [employer] Work Phone: WBC (Bld) [#/Vol] 7.5 10*3/uL [employer] Phone: WBC (Bld) [#/Vol] NOT REPORTED [employer] Phone: [employer] Phone: Comprehensive Metabolic Pane lOrdered By: Louise Mccullough on 10-01-2020 Albumin [Mass/Vol] 4.7 g/dL 3.5 - 5.2 g/dL [employer] Phone: Albumin/Globulin [Mass ratio] 1.6 {ratio} [employer] Phone: ALP (Bld) [Catalytic activity/Vol] 200 U/L High 35 - 104 U/L [employer] Phone: ALT [Catalytic activity/Vol] 514 U/L High 5 - 33 U/L [employer] Work Phone: Anion gap [Moles/Vol] 9 mmol/L 9 - 17 mmol/L [facility] Phone: AST [Catalytic activity/Vol] 378 U/L High <32 [employer] Phone: Bilirubin [Mass/Vol] 1.72 mg/dL High 0.3 - 1 .2 mg/dL [facility] Phone: Calcium [Mass/Vol] 9.8 mg/dL 8.6 - 10. 4 mg/dL [facility] Phone: Chloride [Moles/Vol] 105 mmol/L 98 - 10 7 mmol/L [employer] Phone: CO2 [Moles/Vol] 27 mmol/L 20 - 31 mmol/L [facility] Phone: Creatinine [Mass/Vol] 0.45 mg/dL Low 0.50 - 0.90 mg/dL [facility] Phone: Free PSA/Total PSA [Mass fraction] 7.7 g/dL 6.4 - 8.3 g/dL [facility] Phone: GFR NOT REPORTED >60 mL/min [facility] Phone: GFR Non- Pediatric GFR requires additional information. Refer to NKDEP website for calculator. >60 mL/min [facility] Phone: Glucose [Mass/Vol] 103 mg/dL High 70 - 99 mg/dL [facility] Phone: Interpretation and review of laboratory results Abnormal [facility] Phone: Potassium [Moles/Vol] 4.4 mmol/L 3.7 - 5.3 mmol/L [facility] Phone: Sodium [Moles/Vol] 141 mmol/L 135 - 144 mmol/L [facility] Phone: Urea nitrogen (BldV) [Mass/Vol] 10 mg/dL 6 - 20 mg/dL [employer] Phone: Urea nitrogen/Creatinine (Bld) [Mass ratio] 22 High [employer] Phone: FTI RATIOOrdered By: Louise Mccullough on 10-01-2020 Free Thyroxine Index 2.1 ug/dL 1.4 - 3 .1 ug/dL [employer] Phone: Insulin, totalOrdered By: Do paulino Mccullough on 10-01-2020 Insulin 25.6 mU/L [employer] Phone: Insulin Comment 1100 [employer] [facility] Work Phone: Insulin Reference Range: [employer] Phone: Comment on above: Fastin.6-24.9 30 min: 20-112 60 min: 29-88 90 min: 26-84 120 min: 22-79 [employer] Phone: Laboratory - Chemistry and C hemistry - challengeOrdered By: Louise Mccullough on 10-01-2020 GFR/1.73 sq M.predicted MDRD (S/P/Bld) [Vol rate/Area] [employer] Phone: Comment on above: Average GFR for <20 years old not available. Chronic Kidney Disease: <60 mL/min/1.73sq m Kidney failure: <15 mL/min/1.73sq m eGFR calculated using average adult body mass. Additional eGFR calculator available at: http://www.[employer]verCar.Lantronix/multiple_crcl_2012.htm Stage 1: Some kidney damage normal GFR Stage 2: Mild kidney damage GFR 60-89 Stage 3: Moderate kidney damage GFR 30-59 Stage 4: Severe kidney damage GFR 15-29 Stage 5: Severe kidney damage GFR <15 ESRD - chronic treatment by dialysis or transplant Lipid PanelOrdered By: Morena Mccullough on 10-01-2020 Cholesterol [Mass/Vol] 150 mg/dL <200 [employer] Phone: Comment on above: Cholesterol Guidelines: <200 Desirable 200-240 Borderline >240 Undesirable Cholesterol in HDL [Mass/Vol] 57 mg/dL >40 [employer] Phone: Comment on above: HDL Guidelines: <40 Undesirable 40-59 Borderline >59 Desirable Cholesterol in LDL [Mass/Vol] 78 mg/dL 0 - 130 mg/dL [employer] Phone: Comment on above: LDL Guidelines: <100 Desirable 100-129 Near to/above Desirable 130-159 Borderline >159 Undesirable Direct (measured) LDL and calculated LDL are not interchangeable tests. Cholesterol in VLDL [Mass/Vol] NOT REPORTED 1 - 30 mg/dL [employer] Phone: Cholesterol.total/Chol esterol in HDL [Mass ratio] 2.6 {ratio} <5 [employer] Phone: Triglyceride [Mass/Vol] 73 mg/dL <150 [employer] Phone: Comment on above: Triglyceride Guidelines: <150 Desirable 150-199 Borderline 200-499 High >499 Very high Based on AHA Guidelines for fasting triglyceride, January 2012. [employer] Phone: No Panel InformationOrdered By: Louise Mccullough on 10-01-2020 [employer] Phone: [employer] Phone: T3, UptakeOrdered By: Kj Mccullough on 10-01-2020 Thyroxine Uptake 27.66 % 22.5 - 37.0 % [employer] Phone: [employer] Phone: [id number] By: Louise Mccullough on 10-01-2020 T4 [Mass/Vol] 7.5 ug/dL 4.5 - 10.9 ug/dL [employer] Phone: TSH without ReflexOrdered By : Louise Mccullough on 10-01-2020 TSH Qn 2.23 m[IU]/L [employer] Phone: No Panel InformationOrdered By: Thierry Braun on 08-26-2020 Left ankle: 1. Possible osteochondral lesion at the medial talar dome. This can be further assessed with CT given that MRI with generated susceptibility artifact in the region of interest. 2. Threaded screws in the talus. Evidence of prior medial malleolus fracture ORIF. 3. Mild soft tissue edema at the medial ankle. No acute fracture or dislocation. Left foot: 1. Threaded screws in the medial malleolus and talus. Hardware appears intact. 2. No acute fracture or dislocation. 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 Possible osteochondral lesion at the medial talar dome. Threaded screws in the medial malleolus which could be related to prior ORIF. Ankle mortise appears intact. Mild soft tissue edema at the medial ankle. No acute fracture or dislocation. No tibiotalar joint effusion. Boehler's angle is maintained. Left foot: Evidence of prior medial malleolus fracture ORIF with threaded screws. There are threaded screws extending through the talus. No tibiotalar joint effusion. Boehler's angle is maintained. Osseous alignment is normal. Hardware appears intact. No acute fracture or dislocation. No marginal erosions. 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 Possible osteochondral lesion at the medial talar dome. Threaded screws in the medial malleolus which could be related to prior ORIF. Ankle mortise appears intact. Mild soft tissue edema at the medial ankle. No acute fracture or dislocation. No tibiotalar joint effusion. Boehler's angle is maintained. Left foot: Evidence of prior medial malleolus fracture ORIF with threaded screws. There are threaded screws extending through the talus. No tibiotalar joint effusion. Boehler's angle is maintained. Osseous alignment is normal. Hardware appears intact. No acute fracture or dislocation. No marginal erosions. IMPRESSION: Left ankle: 1. Possible osteochondral lesion at the medial talar dome. This can be further assessed with CT given that MRI with generated susceptibility artifact in the region of interest. 2. Threaded screws in the talus. Evidence of prior medial malleolus fracture ORIF. 3. Mild soft tissue edema at the medial ankle. No acute fracture or dislocation. Left foot: 1. Threaded screws in the medial malleolus and talus. Hardware appears intact. 2. No acute fracture or dislocation. [employer] Phone: Basic Metabolic Panelon 02- Anion gap [Moles/Vol] 10 mmol/L 9 - 17 mmol/L [employer] Phone: Bun/Cre Ratio 16 [employer] Work Phone: Calcium [Mass/Vol] 9.9 mg/dL 8.4 - 10. 2 mg/dL [employer] Phone: Chloride [Moles/Vol] 101 mmol/L 98 - 10 7 mmol/L [employer] Phone: CO2 [Moles/Vol] 27 mmol/L 20 - 31 mmol/L [employer] Phone: Creatinine [Mass/Vol] 0.61 mg/dL 0.5 - 0.9 mg/dL [employer] Phone: GFR NOT REPORTED >60 mL/min [facility] [employer] Phone: GFR Non- Pediatric GFR requires additional information. Refer to NKDEP website for calculator. >60 mL/min [employer] Phone: Glucose [Mass/Vol] 77 mg/dL 60 - 100 mg/dL [employer] Phone: Potassium [Moles/Vol] 4.3 mmol/L 3.6 - 4.9 mmol/L [employer] Phone: Sodium [Moles/Vol] 138 mmol/L 135 - 144 mmol/L [employer] Phone: Urea nitrogen [Mass/Vol] 10 mg/dL 5 - 18 mg/dL [employer] Phone: CBC Auto Differentialon 05-30 Basophils (Bld) [#/Vol] 0.04 10*3/uL [employer] Phone: Basophils/100 WBC (Bld) 0 % 0 - 2 % [employer] Phone: Differential Type NOT REPORTED [employer] Phone: Eosinophils (Bld) [#/Vol] 0.14 10*3/uL [employer] Phone: Eosinophils/100 WBC (Bld) 1 % 1 - 4 % [employer] Phone: Erythrocyte distribution width (RBC) [Ratio] 13.1 % 11.8 - 14.4 % [employer] Phone: Hematocrit (Bld) [Volume fraction] 41.6 % 36.3 - 47.1 % [employer] Phone: Hemoglobin (Bld) [Mass/Vol] 13.5 g/dL 11.9 - 15.1 g/dL [employer] Phone: Immature granulocytes (Bld) [#/Vol] 0 % 0 [employer] Phone: Immature granulocytes (Bld) [#/Vol] 10*3/uL [employer] Phone: Interpretation and review of laboratory results Abnormal [employer] Phone: Lymphocytes (Bld) [#/Vol] 2.13 10*3/uL [employer] Phone: Lymphocytes/100 WBC (Bld) 21 % Low 25 - 45 % [employer] Phone: MCH (RBC) [Entitic mass] 28.2 pg 25 - 35 pg [employer] Phone: MCHC (RBC) [Mass/Vol] 32.5 g/dL 28.4 - 34.8 g/dL [employer] Phone: MCV (RBC) [Entitic vol] 87.0 fL 78 - 102 fL [employer] Phone: Monocytes (Bld) [#/Vol] 0.95 10*3/uL [employer] Phone: Monocytes/100 WBC (Bld) 9 % High 2 - 8 % [employer] Phone: Platelet mean volume (Bld) [Entitic vol] 10.9 fL 8.1 - 13.5 fL [employer] Phone: Platelets (Bld) [#/Vol] 262 10*3/uL [employer] Phone: Platelets (Bld) [#/Vol] NOT REPORTED [employer] Phone: RBC (Bld) [#/Vol] 4.78 10*6/uL 3.95 - 5.1 1 m/uL [employer] Phone: RBC morphology finding Nom (Bld) NOT REPORTED [employer] Phone: Segmented neutrophils/100 WBC (Bld) 69 % High 34 - 64 % [employer] Phone: Segs Absolute 6[employer] Work Phone: WBC (Bld) [#/Vol] 0.0 10*3/uL 0.0 per 10 0 WBC [employer] Phone: WBC (Bld) [#/Vol] 10.3 10*3/uL [employer] Phone: WBC Morphology NOT REPORTED [employer] [facility] Work Phone: D-dimer, quantitativeon - D-Dimer, Quant 0.33 [facility] [email or web address] Work Phone: Comment on above: When combined with a low clinical probability, a D dimer value of <0.50 mg/L FEU is considered negative for DVT and PE (negative predictive value of 98%, sensitivity of 97%). If this test is not being used to help rule out DVT and PE, then the following reference range should be utilized: 0.00 - 0.59 mg/L FEU. The D-Dimer assay is intended for use as an aid in the diagnosis of venous thromboembolism (DVT and PE) and the results should be interpreted in conjunction with the patient's medical history, clinical presentation, and other findings. Elevated levels of D-dimer activity can be seen in any state of coagulation activation and is not recommended in patients with therapeutic dose anticoagulant therapy for >24 hours, fibrinolytic therapy within the previous 7 days, trauma or surgery within the previous 4 weeks, disseminated malignancies, aortic aneurysm, sepsis, severe infections, pneumonia, severe skin infections, liver cirrhosis, advanced age, coronary disease, diabetes, and . A very low percentage of patients with DVT may yield D-dimer results below the cutoff of 0.5 mg/L FEU. This is known to be more prevalent in patients with distal DVT. Metabolic Panelon 06-13-2020 GFR/1.73 sq M predicted among non-blacks MDRD (S/P/Bld) [Vol rate/Area] [employer] Phone: Comment on above: Stage 1: Some kidney damage normal GFR Stage 2: Mild kidney damage GFR 60-89 Stage 3: Moderate kidney damage GFR 30-59 Stage 4: Severe kidney damage GFR 15-29 Stage 5: Severe kidney damage GFR <15 ESRD - chronic treatment by dialysis or transplant Average GFR for <20 years old not available. Chronic Kidney Disease: <60 mL/min/1.73sq m Kidney failure: <15 mL/min/1.73sq m eGFR calculated using average adult body mass. Additional eGFR calculator available at: http://www.[employer]ream[employer]/multiple_crcl_2012.htm Troponinon 06-13-2020 Troponin I.cardiac [Mass/Vol] NOT REPORTED [employer] Phone: Troponin T.cardiac [Mass/Vol] NOT REPORTED <0.03 ng/mL [employer] Phone: Troponin, High Sensitivity <6 0 - 14 ng/L [employer] Phone: Comment on above: High Sensitivity Troponin values cannot be compared with other Troponin methodologies. Patients with high levels of Biotin oral intake (i.e >5mg/day) may have falsely decreased Troponin levels. Samples collected within 8 hours of biotin intake may require additional information for diagnosis. XR CHEST PORTABLEon 06-13-19 Leeroy, Mhpn Incoming Radiant Results From [employer] - 06/13/2020 2:05 PM EST EXAMINATION: ONE XRAY VIEW OF THE CHEST 06/13/2020 2:00 pm COMPARISON: 09/01/2013 HISTORY: ORDERING SYSTEM PROVIDED HISTORY: cp TECHNOLOGIST PROVIDED HISTORY: cp FINDINGS: Single portable frontal view of the chest is submitted for review. The cardiac silhouette is normal in size. Limited low lung volume examination. Subtle axis/scarring within the right lower lung. No focal airspace consolidation, sizeable pleural effusion, or pneumothorax.. Trachea is midline. Visualized osseous structures and soft tissues are grossly intact. IMPRESSION: No acute cardiopulmonary pathology. [employer] Phone: EXAMINATION: ONE XRA Y VIEW OF THE CHEST 06/13/2020 2:00 pm COMPARISON: 09/01/2013 HISTORY: ORDERING SYSTEM PROVIDED HISTORY: cp TECHNOLOGIST PROVIDED HISTORY: cp FINDINGS: Single portable frontal view of the chest is submitted for review. The cardiac silhouette is normal in size. Limited low lung volume examination. Subtle axis/scarring within the right lower lung. No focal airspace consolidation, sizeable pleural effusion, or pneumothorax.. Trachea is midline. Visualized osseous structures and soft tissues are grossly intact. [employer] Phone: No acute cardiopulmonary pathology. [employer] Phone: XR FOOT LEFT (MIN 3 VIEWS)on 06-13-2020 Erythrocyte distribution width (RBC) [Ratio] Postop changes as above. Hardware intact. No acute disease. [employer] Phone: EXAMINATION: THREE XRAY VIEWS OF THE LEFT FOOT 06/13/2020 3:34 pm COMPARISON: None. HISTORY: ORDERING SYSTEM PROVIDED HISTORY: pain TECHNOLOGIST PROVIDED HISTORY: pain FINDINGS: 2 screws transfix the medial malleolus and 2 screws transfix the talus. Cortical margins intact. Alignment anatomic. Soft tissues unremarkable. [employer] Phone: Leeroy, Mhpn Incoming Radiant Results From [facility] - 06/13/2020 3:46 PM EST EXAMINATION: THREE XRAY VIEWS OF THE LEFT FOOT 06/13/2020 3:34 pm COMPARISON: None. HISTORY: ORDERING SYSTEM PROVIDED HISTORY: pain TECHNOLOGIST PROVIDED HISTORY: pain FINDINGS: 2 screws transfix the medial malleolus and 2 screws transfix the talus. Cortical margins intact. Alignment anatomic. Soft tissues unremarkable. IMPRESSION: Postop changes as above. Hardware intact. No acute disease. [employer] Phone: HCG,URINEon 02-02-2020 Beta HCG ( test) Ql (U) Negative Normal Negative [facility] Comment on above: Result Comment: POCT Performed By: #### H CGU #### [facility] [address] [place], [place] [id number] BASIC METABOLIC PANELon 10-0 Anion gap [Moles/Vol] 16 mmol/L Normal 10 - 30 [facility] Comment on above: Performed By: #### B MP ####[facility] [place] [address] Calcium [Mass/Vol] 9.3 mg/dL Normal 8.5 - 10.7 [facility] Comment on above: Performed By: #### B MP ####[facility] [place] [address] Chloride [Moles/Vol] 101 mmol/L Normal 98 - 107 [facility] Comment on above: Performed By: #### B MP ####[facility] [place] [address] Creatinine [Mass/Vol] 0.55 mg/dL Normal 0.50 - 0.90 [facility] Comment on above: Performed By: #### B MP ####[facility] [place] [address] Glucose [Mass/Vol] 116 mg/dL High 74 - 99 [facility] Comment on above: Performed By: #### B MP ####[facility] [place] [address] HCO3 (Bld) [Moles/Vol] 23 mmol/L Normal 18 - 27 [facility] Comment on above: Performed By: #### B MP ####[facility] [place] [address] Potassium [Moles/Vol] 3.9 mmol/L Normal 3.5 - 5.3 [facility] Comment on above: Performed By: #### B MP ####[facility] [place] [address] Sodium [Moles/Vol] 136 mmol/L Normal 136 - 145 [facility] Comment on above: Performed By: #### B MP ####[facility] [place] [address] Urea nitrogen [Mass/Vol] 11 mg/dL Normal 6 - 23 [facility] Comment on above: Performed By: #### B MP ####[facility] [place] [address] BLOOD CULTURE, BACTERIALon 1 BLOOD CULTURE, BACTERIAL PATIENT: BLANKA FARIAS LOCATION: [address]#: [id number] : [birth year] AGE: SEX: F ORDERED BY: [place] SOURCE: Blood COLLECTED: 01/30/20 05:50 ANTIBIOTICS AT ERICA.: RECEIVED : 01/30/20 17:30 SITE: R E S U L T S BLOOD CULTURE, BACTERIAL FINAL 02/04/20 17:42 No Growth at 1 days No Growth at 2 days No Growth at 3 days No Growth at 4 days NO GROWTH - FINAL REPORT Normal [facility] Comment on above: Performed By: #### B [facility] #### [facility] [address] [place] [address] CBC AND DIFFERENTIALon 01-29 % AUTOMATED IMMATURE GRAN 0.7 % Normal 0.0 - 1.0 [facility] Comment on above: Result Comment: Sabine ture Granulocyte Count (IG) includes promyelocytes, myelocytes and metamyelocytes but does not include bands. Percent differential counts (%) should be interpreted in the context of the absolute cell counts (cells/L). Performed By: #### C BCDF ####[facility] [place] [address] Basophils (Bld) [#/Vol] 0.03 10*3/uL Normal 0.00 - 0.10 [facility] Comment on above: Performed By: #### C BCDF ####[facility] [place] [address] Basophils/100 WBC (Bld) 0.1 % Normal 0.0 - 1.0 [facility] Comment on above: Performed By: #### C BCDF ####[facility] [place] [address] Erythrocyte distribution width (RBC) [Ratio] 12.4 % Normal 11.5 - 14.5 [facility] Comment on above: Performed By: #### C BCDF ####[facility] [place] [address] Hematocrit (Bld) [Volume fraction] 40.0 % Normal 36.0 - 46.0 [facility] Comment on above: Performed By: #### C BCDF ####[facility] [place] [address] Hemoglobin (Bld) [Mass/Vol] 13.3 g/dL Normal 12.0 - 16.0 [facility] Comment on above: Performed By: #### C BCDF ####[facility] [place] [address] Lymphocytes (Bld) [#/Vol] 1.64 10*3/uL Low 1.80 - 4.80 [facility] Comment on above: Performed By: #### C BCDF ####[facility] [place] [address] Lymphocytes/100 WBC (Bld) 7.8 % Normal 28.0 - 48.0 [facility] Comment on above: Performed By: #### C BCDF ####[facility] [facility] [place] [address] MCHC (RBC) [Mass/Vol] 33.3 g/dL Normal 31.0 - 37.0 [facility] Comment on above: Performed By: #### C BCDF ####[facility] [facility] [place] [address] MCV (RBC) [Entitic vol] 89 fL Normal 78 - 102 [facility] Comment on above: Performed By: #### C BCDF ####[facility] [facility] [place] [address] Monocytes (Bld) [#/Vol] 1.06 10*3/uL High 0.10 - 1.00 [facility] Comment on above: Performed By: #### C BCDF ####[facility] [facility] [place] [address] Monocytes/100 WBC (Bld) 5.1 % Normal 3.0 - 9.0 [facility] Comment on above: Performed By: #### C BCDF ####[facility] [facility] [place] [address] Neutrophils (Bld) [#/Vol] 18.05 10*3/uL High 1.20 - 7.70 [facility] Comment on above: Performed By: #### C BCDF ####[facility] [facility] [place] [address] Neutrophils/100 WBC (Bld) 86.3 % Normal 33.0 - 69.0 [facility] Comment on above: Performed By: #### C BCDF ####[facility] [place] [address] Platelets (Bld) [#/Vol] 325 10*3/uL Normal 150 - 400 [facility] Comment on above: Performed By: #### C BCDF ####[facility] [place] [address] RBC (Bld) [#/Vol] 4.50 x10E12/L Normal 4.10 - 5.20 [facility] Comment on above: Performed By: #### C BCDF ####[facility] [place] [address] WBC (Bld) [#/Vol] 20.9 10*3/uL High 4.5 - 13.5 [facility] Comment on above: Performed By: #### C BCDF ####[facility] [place] [address] Consult-Medicineon 0 Consult-Medicine Service: Service: Medicine Consult: Consult requested by (Attending Name): Thierry Braun Reason: medical management. post operative 24 hour observation History of Present Illness: Admission Reason: Ankle Fracture HPI: BLANKA FARIAS is a 19 year old Female with PMH of bilateral TM dysfunction requiring chronic tubes and chronic pain that presented as direct admit after ankle surgery for fracture. Most history was obtained from mother at the bedside. She reports that patient has had issues with her left foot for years and has had multiple surgeries. Patient reports that she has some pain in the left foot but otherwise is doing ok. Patient and mother denies any recent fever/chills, chest pain, dyspnea, N/V, abdominal pain, and changes in urinary or bowel habits. Mother states that patient has had chronic pain requiring multiple narcotic medications in the past however she was weaned off all of those and now uses marijuana for pain control. Patient currently denies any complaints and reports she is eager to return home. Patient is from [place] so no chart for comparison. PMH: bilateral TM dysfunction PSH: bilateral ear tubes, right foot surgery with multiple revisions SH: denies tobacco and ETOH use, admits to regular marijuana use for pain control; lives at home with mother FH: Denies any family hx of DM, HTN, CVA, cancer, and CAD Review Family/Social History and ROS: Constitutional: NEGATIVE: Fever, Chills Eyes: NEGATIVE: Vision Loss/ Change ENMT: NEGATIVE: Mouth Pain, Throat Pain Respiratory: NEGATIVE: Dry Cough, Productive Cough, Shortness of Breath Cardiac: NEGATIVE: Chest Pain, Dyspnea on Exertion, Syncope Gastrointestinal: NEGATIVE: Nausea, Vomiting, Diarrhea, Constipation, Abdominal Pain Genitourinary: NEGATIVE: Dysuria, Frequency Musculoskeletal: POSITIVE: Decreased ROM, Pain, Swelling, Stiffness, Weakness Neurological: NEGATIVE: Dizziness, Headache Skin: NEGATIVE: Rash Allergies: No Known Allergies: Objective: Objective Information: T PRBPSpO2 [id number]/7294% Date/Time01/29 5: 5: 5: 5: 5:29 Range(36.1C - 36.6C ) (72 - 94 ) (14 - 14 ) (113 - 131 )/ (72 - 78 ) (94% - 99% ) Physical Exam: Constitutional: Well developed, no apparent distress, alert and oriented x3 Head/Neck: Normocephalic, atraumatic Respiratory/Thorax: CTAB with good inspiratory effort, no wheezing/crackles/rale s Cardiovascular: RRR with normal S1 and S2, grade II/ murmur Gastrointestinal: Soft, nontender, nondistended, BSx4 Musculoskeletal: ROM intact, normal strength Extremities: No pretibial edema, left foot in surgical dressing C/D/I Neurological: Alert and oriented x3 Psychological: Appropriate mood and behavior Skin: Warm and dry, no rashes or lesions noted, left foot in surgical dressing C/D/I Refresh Home Medications List: Select to Refresh Home Medication ListRefresh Home Medications Recent Lab Results: Results: I have reviewed these laboratory results: Complete Blood Count + Differential 30-Jan-2020 05:50:00 ResultValue White Blood Cell Count 20.9 H Red Blood Cell Count 4.50 HGB 13.3 HCT 40.0 MCV 89 MCHC 33.3 PLT 325 RDW-CV 12.4 Neutrophil % 86.3 Immature Granulocytes % 0.7 Lymphocyte % 7.8 Monocyte % 5.1 Basophil % 0.1 Neutrophil Count 18.05 H Lymphocyte Count 1.64 L Monocyte Count 1.06 H Basophil Count 0.03 Basic Metabolic Panel 30-Jan-2020 05:50:00 ResultValue Glucose, Serum 116 H NA 136 K 3.9 CL 101 Bicarbonate, Serum 23 Anion Gap, Serum 16 BUN 11 CREAT 0.55 Calcium, Serum 9.3 Coronavirus 2019, Screen Asymptomatic 29-Jan-2020 11:36:00 ResultValue Fluid Source Nasal, Nasopharyngeal Coronavirus 2019,PCR NOT DETECTED Reference Range: Not Detected This assay is designed to detect the RdRp gene of SARS-CoV-2 via nucleic acid amplification. A Not Detected result does not preclude COVID-19 infection since the adequacy of sample collection and/or lo Assessment: BLANKA FARIAS is a 19 year old Female with PMH of bilateral TM dysfunction requiring chronic tubes and chronic pain that presented as direct admit after ankle surgery for fracture. Ankle Fracture - POD#1 ORIF medial malleolus, talar defect with talar allograft implant, repair of deltoid ligament - pain mgmt per primary team - per plan for ASA 325mg QD x1mth for DVT proph - per pod, plan to discharge later today Cardiac murmur - patient and mother report remote history of murmur but no recent evaluation - no obvious signs of dysfunction, however stressed importance of follow up with PCP with mother regarding murmur - patient and mother expressed understanding and will follow up with PCP and potentially cardiology follow up in [place] Bilateral TM dysfunction - had bilateral tubes placed multiple years ago and needed revision last year - no acute concerns Marijuana use - discussed with mother cessation which she reports is not possible because its the only thing that helps her pain - encouraged mother to seek medical marijuana card Dispo: Patient appears medically stable for discharge per primary team. Thank you for the consult, we will follow. Consult Signoff: Consult Signoff (select all that apply): initial consult complete, will follow Consult Order ID: [id number] Electronic Signatures: [place]) (Signed 30-Jan-2020 16:39) Authored: Service, History of Present Illness, Review Family/Social History and ROS, Allergies, Objective, Assessment/Recommendat ions, Note Completion Last Updated: 30-Jan-2020 16:39 by [place] () Normal [facility] Daily Progress Note-Podiatry on 01-30-2020 Daily Progress Note-Podiatry Service: Podiatry Subjective Data: BLANKA FARIAS is a 19 year old Female who is Hospital Day # 2 and POD #1 for 1. medial malleolar osteotom with ORIF of Medial malleolus left;2. ORIF of talar defect with talar allograft implant ;3. application of amniotic graft;4. repair of deltoid ligament. Additional Information: She feels like her block is wearing off. She would like to go home today. Objective Data: Objective Information: T PRBPSpO2 [id number]/7294% Date/Time01/29 5: 5: 5: 5: 5:29 Range(36.1C - 36.6C ) (72 - 94 ) (14 - 14 ) (113 - 131 )/ (72 - 78 ) (94% - 99% ) Pain reported at 01/29 5:55: 6 = Moderate Pain reported at 01/28 21:47: 4 Physical Exam: Constitutional: Well developed, awake/alert/oriented x3, no distress, alert and cooperative Eyes: PERRL, EOMI, clear sclera ENMT: mucous membranes moist, no apparent injury, no lesions seen Head/Neck: Neck supple, no apparent injury, thyroid without mass or tenderness Respiratory/Thorax: Patent airways, CTAB, normal breath sounds with good chest expansion Cardiovascular: Regular, rate and rhythm, no murmurs, 2+ equal pulses of the extremities, Musculoskeletal: ROM intact, no joint swelling, normal strength Extremities: Left lower extremity with splint intact. Patient is unable to wiggle her toes. Gross sensation intact to the toes. No strikethrough drainage noted. No calf tenderness noted. Neurological: alert and oriented x3, intact senses, motor Lymphatic: No significant lymphadenopathy Psychological: Appropriate mood and behavior Skin: Warm and dry, no lesions, no rashes Recent Lab Results: Results: CBC: 01/30/2020 05:50 \ Hgb / \ 13.3 / WBC Plt 20.9 H 325 / Hct \ / 40.0 \ RBC: 4.50 MCV: 89 Neutrophil %: 86.3 BMP: 01/30/2020 05:50 NA+ Cl- BUN / 136 101 11 / Glucose ----- 116 H K+ HCO3- Creat \ 3.9 23 0.55 \ Calcium : 9.3 Anion Gap : 16 Assessment and Plan: Code Status: Code StatusFull Code Assessment: 19F patient who is 1 day s/p left medial malleolus cut down, talar OCD debridement, talar allograft placement and ORIF, ORIF of medial malleolus - switched from dilaudid to standing every 4 hours percocet, q8h toradol - NWB LLE - Patient to be discharged today - She is to take a full strength aspirin daily Signature/Cosignature/ Attestation: Note Completion: I am a: Resident/Fellow Attending AttestationI reviewed the resident/fellows documentation and discussed the patient with the resident/fellow. I agree with the resident/fellows medical decision making as documented in the note. Electronic Signatures: Nanci Cleary (DPM (Fellow)) (Signed 30-Jan-2020 08:51) Authored: Service, Subjective Data, Objective Data, Assessment and Plan, Note Completion Thierry Braun (DPM) (Signed 31-Jan-2020 08:12) Authored: Note Completion Co-Signer: Service, Subjective Data, Objective Data, Assessment and Plan, Note Completion Last Updated: 31-Jan-2020 08:12 by Thierry Braun (DPM) Normal [facility] Discharge Planning [id number] 1 Discharge Planning Note2 Discharge Planning: [facility] [place] of Choice Explainedyes Anticipated Discharge [id number] Discharge Planning 01/30/2020 0925: Transitional Manager Trainee Note: Plan of care discussed in Interdisciplinary Rounds. Patient admitted for ankle surgery. Spoke to the patient and her mother at the bedside. Patient is from home with her mother and is normally independent. Patient stated she has crutches and a walker at home already she can use. Denying any discharge needs. PT to evaluate patient. Patient wound like to discharge at 1300 today as they live 3 hours away. Faye Crowe RN TCC Added 1137 : PT recommended C and patient's mom agreeable. Referral sent to [facility] via [email or web address]. Faye Crowe RN TCC Assessment: Discharge Planning Assessment [id number] Discharge Planning Assessment Completed byFaye Crowe RN TCC Primary Contact Name and NumberKayleigh-laurence(1) Stated Reason for Admissionankle surgery(2) Arrived [place] (2) PCPDr. Louise [facility] Adherence/Afford/Obtai nyes InsuranceMMO Super Med Resource/Environmental Concernsnone(2) Anticipated Transition [place](2) Services Anticipated at Transitionnone(2) Electronic Signatures: Faye Crowe (CELIA) (Signed 30-Jan-2020 11:39) Authored: Discharge Planning, Assessment Last Updated: 30-Jan-2020 11:39 by Faye Crowe (CELIA) References: 1. Data Referenced From Patient Profile - Preop v2 29-Jan-2020 13:35 2. Data Referenced From Patient Profile - Pediatric v2 29-Jan-2020 19:41 Normal [facility] Discharge [id number] Discharge Profile2 Discharge Orders: Anticipated Discharge Date: Anticipated Discharge [id number] Hospital Providers: Provider RoleProvider Name Thierry Jaffe Activity: activity as tolerated. May shower. Keep dressing clean, dry, and intact. Weight-bearing Instructions: no weight-bearing left foot. Diet: Dietregular Wound Care 1: Wound SiteLeft lower extremity Wound Typesurgical incision Other InstructionsLeave dressing clean, dry, and intact Hospital Course (Home Care/Gold Form): Hospital Course: Hospital Course: include significant abnormal lab values Patient was admitted to the hospital under observation after her left ankle surgery. She tolerated surgery well. For details of the procedure, please see the operative report. Post-operatively she was admitted to the PACU where she was able to recover and then transferred to the floor. Post-operatively her vital signs remained stable. She was able to tolerate a regular diet. Her pain was well controlled on an oral pain medication regimen. She was doing well on post-operative day one so she will be discharged to home on oral pain medication and on an oral antibiotic Home Care Orders: Face to Face Certification: Home Care Services Needed: yes Home Care Agency: [facility] [phone] Skilled Disciplines Ordered: RN/DEGREASER OPERATOR, PT Face to Face Encounter Completed: yes Date of Encounter: 30-Jan-2020 Medical Necessity for Homecare (based on clinical findings): Short-term SN is needed to monitor for signs and symptoms of decompensation/adverse events from new surgical wound and anticoagulant regimen. PT services needed to restore ability to walk safely without support and establish home exercise program. Homebound Status: homebound Homebound Due to:: Patient is temporarily homebound after medial malleolar osteotom with ORIF of medial malleolus left and ORIF of talar defect with talar allograft implant procedure and is dependent on DME due to muscle weakness and painful ambulation. Face to Face Completed and Home Care Orders Reviewed: I certify that this patient is under my care. I have reviewed the information included in the face to face and certify that the home care services ordered are medically necessary for this patient. Home Care Services: Home Care Skilled Serviceassessment, follow up teaching, medication, Rehab (PT/OT/SP eval and treat) Assessment: First Home Care VisitHome Care to determine Teaching: First Home Care VisitHome Care to determine Med Compliance: First Home Care VisitHome Care to determine Rehab: First Home Care VisitHome Care to determine Provider FINAL REVIEW of Orders: Final Review: Final Review of Medication Reconciliation and Orders Completedby Physician Reviewing ProviderThierry Braun DPM at 30-Jan-2020 11:45:21 Name/Contact Info for Questions About Discharge OrdersThierry Braun Electronic Signatures: Nanci Claery (GERARDO (Fellow)) (Signed 30-Jan-2020 10:47) Authored: Discharge Orders, Hospital Course (Home Care/Gold Form), Provider FINAL REVIEW of Orders, Gold Form - Paste Mixing Supervisor Summary Thierry Braun) (Signed 30-Jan-2020 11:45) Authored: Home Care Orders, Provider FINAL REVIEW of Orders Faye Crowe (RN) (Signed 30-Jan-2020 11:33) Authored: Home Care Orders, Provider FINAL REVIEW of Orders Last Updated: 30-Jan-2020 11:45 by Thierry Braun) Normal [facility] Admission Risk Screen - Pedi atricon 01-29-2020 Admission Risk Screen - Pediatric Admission Screens: Patient Verification: New W ID Band Applied in my Departmentyes Patient Identity Verified Byparent/legal guardian ID Band FULL Name, include Middle, spelling matches patient's ID used for verificationyes ID Band Matches Patient ID used for Verficationyes ID Band MRN Matches EMR MRNyes Visitor Restriction: Coronavirus Visitor Restriction: Reasonable restrictions to in-person visitors will be observed due to current coronavirus pandemic. Travel History: COVID-19 Screening Completedno exposure or symptoms(1) Advance Directive: Advance Directive/DNRno (1) Humpty Dumpty Risk Assessment: Humpty Dumpty Risk Assessment: Humpty: Age(1) 13 years and above Humpty: Gender(1) female Humpty: Diagnosis(1) other diagnosis Humpty: Cognitive Impairments(1) oriented to own ability Humpty: Environmental Factors(2) patient placed in bed Humpty: Response to Surgery/ Sedation/ Anesthesia(3) within 24 hours Humpty: Medication Usage(1) other medications Humpty: ScoreImage has been removed. 10 Falls Precautions per Humpty Dumpty Screening ToolHIGH RISK falls safety precautions necessary (score 12+) Humpty Dumpty Educationteaching provided Teaching ProvidedPI 729 Humpty Dumpty Falls Prevention Program Family Violence Screen (Patient < 8 yo, screen parent only. Patient 8 yo and older, screen both parent and child.): Do you feel UNSAFE going back to the place where you liveno Clinician Assessment: Are there any apparent signs of injuries/behaviors that could be related to abuse/neglectno Ask parent or guardian: Are there times when you, your child(ry), or any member of your household feel unsafe, harmed, or threatened around persons with whom you know or liveno Have you had any thoughts of harming anyone elseno Social Service Consult for abuse/neglect needed this visitno SBIRT: Does this patient present with an injuryno Functional Screen: Functional Screen: In the recent/past 2-4 weeks, patient or family have noticeda significant change in function affecting balance, or the ability to safely transfer or ambulate (And is not on bedrest) Learning Assessment (Patient): Patient is Able to be Assessed for Learningyes Educational Curbk81ds12th grade Factors Influence Readiness to Learnnone, ready to learn Factors Impact Ability to Learncognitive limitations Devices/Methods Used to Communicatenone Learning Preferencesverbal instruction Cultural Considerationsnone Developmental Considerationsnone Anabaptist Considerationsnone Other Learnersmother Learning Assessment (Other Learner): Other learner availableyes Other Learner is Able to be Assessed for Learningyes Learnermother Factors Influencing Readiness to Learnnone, ready to learn Factors that Impact Ability to Learnnone Devices/Methods Used to Communicatenone Learning Preferencesverbal instruction Cultural Considerationsnone Developmental Considerationsnone Anabaptist Considerationsnone Nutrition Risk Screen: Nutrition Screen forpediatric patient Nutrition Risk Screen (2 or more indicators, Order Nutrition Consult)no indicators present Nutrition Consult needed this visitno Can Patient Participate in Room Serviceyes Pain Screen: Pain Scalenumerical 0-10 (1) Pain Scale Educationteaching provided (1) Teaching Provided PedsPain Management PI sheet 687 Current Pain Level0 = None Acceptable Pain Level2 = Mild Expression of Pain (nonverbal)none Lifestyle Changes/Adaptations in Response to Painno change Barriers to Reporting Painnone Chronic Painno (1) Video/Poke Procedure Plan: Has the Pain Evaluation and Management Video been viewed within the past 3 months: no Has the Poke and Procedure Plan been completed: yes Ilya QD: Ilya QD: Ilya QD: Mobility(1) limited Ilya QD: Sensory(0) no impairment Ilya QD: Friction and Shear(0) no problem Ilya QD: Nutrition(0) adequate Ilya QD: Tissue Perfusion and Oxygenation(0) adequate Ilya QD:Device Repositionability/Skin Protection(0) no medical devices Pressure Injury Present on Admissionno Spiritual Screen: Are there any cultural, spiritual, sabianist practices/values/needs that are important for us to knowno [place] Suicide Peds: Screen patients 10 yo and older, or any patient presenting with a mental health issue Risk Screen Not Applicable/Able to Answerable to be screened In the Past Month: Have you wished you were or could go to sleep and not wake upyes In the Past Month: Have you had any actual thoughts of killing yourselfno Lifetime: Have you ever done, started to do, or prepared to do anything to end your lifeno [place] Suicide Risklow Optional Screens: Significant Indicatiors: Significant Indicators: Complete Electronic Signatures: Carmel Muñoz) (Signed 29-Jan-2020 19:41) Authored: Admission Screens, Pressure Injury, Optional Screens Last Updated: 29-Jan-2020 19:41 by Carmel Muñoz (CELIA) References: 1. Data Referenced From Patient Profile - Preop v2 29-Jan-2020 13:35 Normal [facility] CORONAVIRUS 2019, SCREEN ASY MPTOMATICon 01-29-2020 CORONAVIRUS 2019,PCR NOT DETECTED Normal Not Detected [facility] Comment on above: Result Comment: This assay is designed to detect the RdRp gene of SARS-CoV-2 via nucleic acid amplification. A Not Detected result does not preclude COVID-19 infection since the adequacy of sample collection and/or low viral burden may result in presence of viral nucleic acids below the clinical sensitivity of this test method. Fact sheet for providers: www.fda.gov/media/545997/download Fact sheet for patients: www.[employer].gov/media/827291/download This test has received FDA Emergency Use Authorization (EUA) and has been verified by [facility]. This test is only authorized for the duration of time that circumstances exist to justify the authorization of the emergency use of in vitro diagnostic tests for the detection of SARS-CoV-2 virus and/or diagnosis of COVID-19 infection under section 564(b)(1) of the Act, 21 U.S.C. 360bbb-3(b)(1), unless the authorization is terminated or revoked sooner. [facility] is certified under CLIA-88 as qualified to perform high complexity testing. Testing is performed in the [facility] laboratory located at [address] [place] [address]. Performed By: #### C OVSC #### [place] [address] Lab Specimen Source Nasal, Nasopharyngeal Normal [facility] Comment on above: Performed By: #### C OVSC #### [address] Surgical Pathologyon 01-29-2020 [facility] Surgical Pathology Name BLANKA FARIAS Pathologist: THIERRY FONSECA MD Date of Procedure: 01/29/2020 Date Received: 02/01/2020 Date Reported 02/05/2020 Submitting Physician: THIERRY BRAUN DPM Location: [facility] Surg Other External # FINAL DIAGNOSIS A. LEFT TALUS, EXCISION: --DEVITALIZED BONE WITH FEATURES OF REMODELING. Electronically Signed Out By THIERRY FONSECA MD/ERASTO By the signature on this report, the individual or group listed as making the Final Interpretation/Diagnos is certifies that they have reviewed this case. Clinical History: Osteochondral defect fracture left talus Specimens Submitted As: A: LEFT TALUS Gross Description: Received in formalin, labeled with the patient's name and hospital number and A , is a segment of bone measuring 2.0 x 1.4 x 1.4 cm. The external surface of the bone is white-buckley, smooth, glistening, and remarkable for a central depression measuring 0.5 x 0.5 x 0.4 cm. The bone margin is smooth. No grossly necrotic bone is identified. A client services representative section is submitted in one cassette following decalcification. N Gross dissection performed at: [facility] Department of Pathology [address] [place] [address] cjn/02/01/2020 [facility] Department of Pathology [address] [place] [address] Normal [facility] Comment on above: Performed By: #### G SP ####[facility] Surgical [address] [place] [address] Operative Reports - [facility] 01-29-2020 [place] [address] Patient Name: BLANKA FARIAS : 2000 Date of Service: 01/29/2020 Patient Location: [facility] [id number] Patient Type: O Surgeon: Thierry Braun DPM Report Type: Operative Reports LOCATION: [facility]. SURGEON: Thierry Braun DPM TREASURY SPECIALIST(S): 1. Nanci Cleary DPM PGY-5 2. Az Norton DPM PGY-4 PREOPERATIVE DIAGNOSES: 1. Left severe ankle pain, status post ankle reconstructive surgery. 2. 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 3. Left painful ankle joint. 4. Consistent pain in the left ankle. POSTOPERATIVE DIAGNOSES: 1. Left severe ankle pain, status post ankle reconstructive surgery. 2. 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 3. Left painful ankle joint. 4. Consistent pain in the left ankle. OPERATION/PROCEDURE: 1. Left medial malleolar osteotomy. 2. Left talus osteochondral fracture defect. 3. Open reduction and internal fixation with allograft, bone graft, and internal fixation. 4. Left deltoid ligament repair. 5. Left application of amniotic tissue graft. PATHOLOGY: None. ANESTHESIA: General with regional block. HEMOSTASIS: Thigh cuff at approximately 1 hour 30 minutes at 250 mm left thigh. ESTIMATED BLOOD LOSS: Approximately 10 mL of blood. INDICATIONS: The patient is status post ankle injury, in about 1 year of significant pain and discomfort. The patient has failed conservative options. She was sent to me from [place], [place] for second opinion, and the patient had such severe talar lesion and fracture and osteochondral defect that she was advised that if she can live with the pain, she may need an ankle joint fusion and we want to see if we can avoid that. Therefore, we discussed open reconstruction, left ankle surgery. Reviewed indication, risks, and benefits due to the patient's pain. The only thing that really works with her and mother states, who is a nurse, that the marijuana helps better than narcotics. They have been doing medicinal marijuana. The patient has gained significant amount of weight, and she has stopped doing any type of athletic events. Reviewed indication, risks, and benefits of surgery. Risks include pain, infection, numbness, tingling, burning, continued arthritis, nonunion of bone graft application, RSD, CRPS or complex regional pain syndrome, DVT, PE, amputation, other unforeseen complications. Reviewed indication, risks, and benefits. They want to proceed with surgery. PROCEDURE IN DETAIL: The patient was seen in preop holding, consent signed, H and P completed, IV antibiotics given, extremity marked. No guarantees given on outcomes of surgery. The patient had the regional block given. The patient was brought to the operating room table. Time-out performed. IV antibiotics confirmed and given. Extremity had a left thigh tourniquet applied. Sterilely prepped and draped from the toes to the knee utilizing Betadine soap and paint. After sterilely prepping and draping, we were able to proceed with starting the procedure, and we did this under C-arm visualization, a lazy-S medial incision was created approximately 12 cm, dissected to the anatomical planes and dissection levels. There was significant amount of adipose tissue, we dissected through, protected the neurovascular structures. Continued our dissection down to the ankle joint and able to protect all neurovascular structures and tendons and proceed with seeing the capsular tissue, able to incise the capsular tissue, reflect and see the ankle joint, and we could see the anterior medial large defect. We were unable to see the whole anterior defect because of the medial malleolus, and therefore, under C-arm visualization, we were able to proceed with placing our guidewires for 4-0 cannulated screw system from [employer], placed these in and then pulled out the wires. Under C-arm, able to make our osteotomy of the medial malleolus. We made this little bit more horizontally, reflected it, kept it attached. It was noted that the posterior tibial tendon sheath and posterior tibial tendon had a slight tear in it and significant inflammation and swelling of the tendon sheath. We were able to repair this partial tear of approximately 30% of the tendon directly on the posterior aspect of the medial malleolus with a #2-0 FiberWire and reinforced this with #2-0 Vicryl suture. We were able to see the large lesion. Now, we were able to plantar flex the foot and vandana. We did take down the deltoid ligament, keeping the attachment to the medial malleolus, so we could repair this later, and then we were able to create and cut out our window of the large bone deficit. This area measured at least 1.8 cm and it was deep approximately 2 cm. We used a dental pick, and the bone was very soft underneath this lesion. We took approximately a 1.8 cm in length by 1.8 cm in width and 1.8 cm in depth. We cut this out keeping the edges square. At this time, we now were able to take our fresh allograft from the talus on the left side, match up to where we made the cut and resect a segment of bone. After remodeling the bone segment, we were able to place this into the bone section that we cut out, and we matched this up very well close to anatomical position. We were able to secure this with 3.0 cannulated screws from [employer] and able to place the ankle joint in good range of motion. The allograft fit pretty well and there was no impact, and the ankle joint had nice gliding motion. We were able to evaluate the rest of the talar dome, which looked healthy. We irrigated with saline solution. We then placed an Amniox 3 x 6 cm 1K cord grafts, split this in half and placed this in the ankle joints particularly over the repair of the talus and then we were able to place the medial malleolar osteotomy back into anatomical position and secure this with 4.0 cannulated screws and then we took the remaining amniotic tissue graft and wrapped this around the posterior tibial tendon. The tourniquet was let down. We irrigated with saline solution. We closed the deep capsular tissue after we repaired the deltoid ligament with an [employer]rex FiberTak suture. Now, this was secured into the distal medial malleolus, and we did a [id number] repair of the ligament, keeping it tight. Closed the capsular tissue with 2-0 Vicryl suture, closed the skin with subcu 3-0 Vicryl suture and 3-0 Prolene suture. A sterile dressing was applied. Tourniquet was let down before we did any closure. Bleeding was well controlled. A posterior splint was applied. The patient tolerated the procedure and anesthesia well. Injected 0.5% Marcaine with epinephrine medially. The patient was brought back to PACU. The toes were pink and healthy, palpable pulses. The patient will be observed for 23 hours to control the pain and then the patient will have physical therapy and she will be discharged home eventually on p.o. pain meds, antibiotics, and a full-strength aspirin and crutches. She will follow up in the office in approximately 1 week or we will make a contact in her area in [place], [place] to do some followup. Thierry Braun DPM EST TT: 01/31/2020 09:56 AM EST DICTATION NUMBER: [id number] HANY JOB NUMBER: [id number] CC: LOUISE MCCULOLUGH Electronic Signatures: Thierry Braun (GERARDO) (Signed on 05-Feb-2020 06:35) Authored Unsigned, Draft (SYS GENERATED) (Entered on 31-Jan-2020 09:56) Entered Last Updated: 05-Feb-2020 06:35 by Thierry Braun) Normal [facility] Patient Profile - Pediatric v2on 01-29-2020 Patient Profile - Pediatric v2 Profile: Initial Info: How to be AddressedMartina(1) Parent NameJessica Spoken Language PreferredEnglish (1) Source of Informationpatient; family Legal Custodianmother Are you currently using the Personal Electronic Health Record or MY[facility]no Are you interested in learning more about [facility] for the management of your healthnot at this time Stated Reason for Admissionankle surgery Court Ordered Visitationno Legal Guardian Notified of Admissionlegal guardian present Notify PCPdo not notify PCP Informed of Patient Visiting Rightsyes Arrived FromOR Patient Belongingsremains with patient Patient Belongings Remaining with Patientclothing; cell phone/electronics Medications Brought to Hospitalno General Health: Pediatric Weight (kg)107.4 kilogram(s) Weight Methodstated Scale Typebed Pediatric Height / Length (cm)5.8 centimeter(s) Height Methodheight measured Procedural Care Plan: Completed By (Patient or Parent/Guardian Name)Kayleigh 1. How Has Your Child Coped with Other Pokes (Needle Sticks) or Procedures good 2. When Would You Like Your Child to Learn About the Poke or Procedureas early as possible 3. How Does Your Child Learn Best (Check ALL That Apply)talking about it at his/her level 4. What Position is Best for Your Child During a Poke or Proceduresitting up on their own 5. What Other Ways May Help Your Child with a Poke or Procedure (Check ALL That Apply)comfort object 6. Ways to Lessen PainBUZZY 7. Does Your Child Have a Central Lineno Rsp Based Care: How would you (parents/caregivers) like to participate in the care of your childbeing kept informed What is the number one concern for you/your child during this hospitalization taking good care of my daughter What is the most important thing we can do to support you and your child during this hospitalizationbe honest Is there anything we need to know to best care for your childno Substance: Current or Former Substance Use never: Cigarette/Tobacco, e-Cigarette/Vaping, Alcohol YES: Street Drugs(1) Health Mgmt: Symptoms/Conditions Managed at [facility] Are You no Are You Currently Breastfeedingno (1) Relationship/Environ: Resource/Environmental Concernsnone Primary Caregivermother Lives Withmother [facility] Anticipated at Transitionnone School/[employer] grade/high school senior Concerns Regarding School Performance/Peer Relationshipsno Information Review: Allergies, Home Meds and Significant Events have been Reviewed and Verified with Patient/Familyyes ALLERGY, INTOLERANCE, ADVERSE EVENT: Allergies: No Known Allergies: Active Electronic Signatures: Carmel Muñoz) (Signed 29-Jan-2020 19:49) Authored: Initial Info, General Health, Procedural Care Plan, Rsp Based Care, Substance, Health Mgmt, Relationship/Environ, Additional Information Last Updated: 29-Jan-2020 19:49 by Carmel Muñoz (CELIA) References: 1. Data Referenced From Patient Profile - Preop v2 29-Jan-2020 13:35 Normal [facility] Patient Profile - Preop v2on 01-29-2020 Patient Profile - Preop v2 Profile: Initial Info: How to be AddressedMartina Spoken Language PreferredEnglish Are you currently using the Personal Electronic Health Record or [facility] Are you interested in learning more about [facility] for the management of your healthdeclined Stated Reason for AdmissionL ankle repair Primary Contact Name and NumberKayleigh-mom Patient Belongingsin pacu Medications Brought to Hospitalno General Health: Patient or Family Member Reaction to Anesthesiano previous reaction Health Mgmt: Symptoms/Conditions Managed at [facility] Are You Currently Breastfeedingno Barriers to Managing Healthnone Relationship/Environ: Resource/Environmental Concernsnone Substance: Current or Former Substance Use never: Cigarette/Tobacco, e-Cigarette/Vaping, Alcohol YES: Street Drugs Street Drug/Inhalant/ Medication Use Statuscurrent street drug/inhalant/medicati on abuse Street Drug/Medication/ Inhalant Typemarijuana Risk Screens: COVID-19 Screening Completedno exposure or symptoms Advance Directive/DNRno During the past month, have you often been bothered by feeling down, depressed or hopelessno During the past month, have you often had little interest or pleasure in doing thingsno Have you had any thoughts of harming yourselfno Have you had any thoughts of harming anyone elseno Are you or have you been threatened or abused physically,emotionally or sexually abused by anyoneno Do you feel UNSAFE going back to the place you are livingno Patient is Able to be Assessed for Learningyes Factors Influencing Readiness to Learnanxiety; pain Factors that Impact Ability to Learnnone Devices/Methods Used to Communicatenone Learning Preferencesverbal instruction Cultural Considerationsnone Developmental Considerationsnone Anabaptist Considerationsnone Other learner availableno Falls RiskPatient location auto qualifies him/her for HIGH RISK. Are there any cultural, spiritual, sabianist practices/values/needs that are important for us to knowno Pain Scalenumerical 0-10 Pain Scale Educationteaching provided Current Pain Level7 = Severe Acceptable Pain Level4 = Moderate Chronic Painno Information Review: Allergies, Home Meds and Significant Events have been Reviewed and Verified with Patient/Familyyes Allergy, Intolerance, Adverse Event: Allergies: No Known Allergies: Active Electronic Signatures: Sandrine Jack) (Signed 29-Jan-2020 14:14) Authored: Initial Info, General Health, Health Mgmt, Relationship/Environ, Substance, Risk Screens, Additional Information Last Updated: 29-Jan-2020 14:14 by Sandrine Jack) Normal [facility] Preop Checkliston 01-29-2020 Preop Checklist Preop Checklist: Preop Checklist: Arrival [id number] Arrival Time11:29 Procedure TypeL foot osteotomy NPO [id number] 00:00 ID Band Onyes Consent Signedyes H&P Completeyes Anesthesia Assessment Completedpending EKG Performednot ordered Chest X-Ray Performednot ordered HCG Urine TestComplete Chlorhexadine Bath Givennot applicable Nasal Antiseptic Appliednot applicable Hair Washednot applicable Soap and water bath with hair shampoo the night before surgerynot applicable Hat placed on infant prior to transportnot applicable SCD's Appliedyes Denturesnot applicable Prostheticsnot applicable Hearing Aidsnot applicable Valuables Securedpacu Glasses / Contactsnot applicable Respiratory Assessment: Respirationsunlabored Neurological Assessment: Level of Consciousnessalert, oriented Mobilitymoves all extremities Able to Express Selfyes Age Appropriateyes Emotional Statuscalm Preop Education: Surgical Site Infection Preventionyes Pain Scales and Managementyes Language / Communication: Language / CommunicationEnglish Electronic Signatures: Sandrine Jack) (Signed 29-Jan-2020 13:27) Authored: Preop Checklist Last Updated: 29-Jan-2020 13:27 by Sandrine Jack) Normal [facility] MRI ANKLE LEFT WO CONTRASTon 1014-2019 1. 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 2. Mild degenerative changes of the tibiotalar joint. 3. No acute fracture or dislocation. No acute ligamentous injury. [facility], [place] EXAMINATION: MRI OF THE LEFT ANKLE WITHOUT CONTRAST, 02/09/2019 7:29 am TECHNIQUE: Multiplanar multisequence MRI of the left ankle was performed without the administration of intravenous contrast. COMPARISON: Left ankle radiographs performed on 01/21/2019 HISTORY: ORDERING SYSTEM PROVIDED HISTORY: Sprain of tibiofibular ligament of left ankle, sequela TECHNOLOGIST PROVIDED HISTORY: Is the patient ?->No 18-year-old female with sprain of tibiofibular ligament of left ankle FINDINGS: SYNDESMOTIC LIGAMENTS: The anterior-inferior tibiofibular ligament, interosseous membrane and posterior-inferior tibiofibular ligaments are normal. LATERAL COLLATERAL LIGAMENT COMPLEX: The anterior talofibular ligament, calcaneofibular ligament and posterior talofibular ligaments are without acute abnormality. DELTOID LIGAMENT COMPLEX: The superficial and deep components of the deltoid ligament complex are normal. SINUS TARSI AND SPRING LIGAMENT: The fat plug within the sinus tarsi is preserved and the interosseous and cervical ligaments are normal. The navicular-calcaneal (spring) ligament is without acute abnormality. MEDIAL TENDONS: The posterior tibialis, flexor digitorum longus and flexor hallucis longus tendons are intact. LATERAL TENDONS: The peroneus longus and brevis tendons are intact. ANTERIOR TENDONS: The tibialis anterior, extensor hallucis longus and extensor digitorum longus tendons are normal in position, morphology and signal. ACHILLES TENDON: The Achilles tendon is normal in position, morphology and signal. No associated bursitis. PLANTAR FASCIA: The medial and lateral bundles of the plantar fascia are normal in morphology and signal. There is no evidence of acute plantar fasciitis or tear. No evidence of plantar fascial nodules. TARSAL TUNNEL: There are no obstructing lesions within the tarsal tunnel. BONE MARROW: There is an osteochondral lesion/defect along the medial talar dome with mild associated chronic collapse in the medial talar dome. This region measures 9 mm transversely on image 16, series 7 by an estimated 1.6 cm in greatest AP dimension on image 8, series 6. Mild subjacent subcortical cystic changes. Bone marrow signal intensity within the remaining visualized osseous structures otherwise grossly unremarkable. No acute fracture or dislocation. No marginal erosions. No tarsal coalition. JOINT SPACES: Mild degenerative changes of the tibiotalar joint. No sizable subtalar, tibiotalar, or intertarsal joint effusion. SOFT TISSUES: No discrete organized fluid collection identified within the visualized soft tissues. [facility]- [place], [place] Leeroy, pn Incoming Radiant Results From [employer] - 02/09/2019 9:18 AM EDT EXAMINATION: MRI OF THE LEFT ANKLE WITHOUT CONTRAST, 02/09/2019 7:29 am TECHNIQUE: Multiplanar multisequence MRI of the left ankle was performed without the administration of intravenous contrast. COMPARISON: Left ankle radiographs performed on 01/21/2019 HISTORY: ORDERING SYSTEM PROVIDED HISTORY: Sprain of tibiofibular ligament of left ankle, sequela TECHNOLOGIST PROVIDED HISTORY: Is the patient ?->No 18-year-old female with sprain of tibiofibular ligament of left ankle FINDINGS: SYNDESMOTIC LIGAMENTS: The anterior-inferior tibiofibular ligament, interosseous membrane and posterior-inferior tibiofibular ligaments are normal. LATERAL COLLATERAL LIGAMENT COMPLEX: The anterior talofibular ligament, calcaneofibular ligament and posterior talofibular ligaments are without acute abnormality. DELTOID LIGAMENT COMPLEX: The superficial and deep components of the deltoid ligament complex are normal. SINUS TARSI AND SPRING LIGAMENT: The fat plug within the sinus tarsi is preserved and the interosseous and cervical ligaments are normal. The navicular-calcaneal (spring) ligament is without acute abnormality. MEDIAL TENDONS: The posterior tibialis, flexor digitorum longus and flexor hallucis longus tendons are intact. LATERAL TENDONS: The peroneus longus and brevis tendons are intact. ANTERIOR TENDONS: The tibialis anterior, extensor hallucis longus and extensor digitorum longus tendons are normal in position, morphology and signal. ACHILLES TENDON: The Achilles tendon is normal in position, morphology and signal. No associated bursitis. PLANTAR FASCIA: The medial and lateral bundles of the plantar fascia are normal in morphology and signal. There is no evidence of acute plantar fasciitis or tear. No evidence of plantar fascial nodules. TARSAL TUNNEL: There are no obstructing lesions within the tarsal tunnel. BONE MARROW: There is an osteochondral lesion/defect along the medial talar dome with mild associated chronic collapse in the medial talar dome. This region measures 9 mm transversely on image 16, series 7 by an estimated 1.6 cm in greatest AP dimension on image 8, series 6. Mild subjacent subcortical cystic changes. Bone marrow signal intensity within the remaining visualized osseous structures otherwise grossly unremarkable. No acute fracture or dislocation. No marginal erosions. No tarsal coalition. JOINT SPACES: Mild degenerative changes of the tibiotalar joint. No sizable subtalar, tibiotalar, or intertarsal joint effusion. SOFT TISSUES: No discrete organized fluid collection identified within the visualized soft tissues. IMPRESSION: 1. 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 2. Mild degenerative changes of the tibiotalar joint. 3. No acute fracture or dislocation. No acute ligamentous injury. [place], [place] Vital Signs Date Time Vital Sign Value Performing Clinician Roseliai rodolfo 10-07-2021 15:08-0400 Body height 172.7 cm Chuy Jacobson MD Work Phone: [facility] 10-07-2021 15:08-0400 Body mass index (BMI) [Percentile] Per age and sex 92.12 % Chuy Jacobson MD Work Phone: [facility] 10-07-2021 15:08-0400 Body mass index (BMI) [Ratio] 28.89 kg/m2 Chuy Jacobson MD Work Phone: [facility] 10-07-2021 15:08-0400 Body temperature 97.81 [degF] Chuy Jacobson MD Work Phone: [facility] 10-07-2021 15:08-0400 Body weight 86.18 kg Chuy Jacobson MD Work Phone: [employer] 10-07-2021 15:08-0400 Diastolic blood pressure 79 mm[Hg] Chuy Jacobson MD Work Phone: [facility] 10-07-2021 15:08-0400 Heart rate 99 /min Chuy Jacobson MD Work Phone: [facility] 10-07-2021 15:08-0400 Respiratory rate 16 /min Chuy Jacobson MD Work Phone: [facility] 10-07-2021 15:08-0400 SaO2% (BldA) [Mass fraction] 100 % Chuy Jacobson MD Work Phone: [facility] 10-07-2021 15:08-0400 Systolic blood pressure 125 mm[Hg] Chuy Jacobson MD Work Phone: [facility] 06-13-2020 16:30-0500 BP Diastolic 71 mm[Hg] [facility] Work Phone: 06-13-2020 16:30-0500 BP Systolic 148 mm[Hg] [facility] Work Phone: 06-13-2020 16:30-0500 Pulse (Heart Rate) 61 /min [facility] Work Phone: 06-13-2020 16:30-0500 Pulse Oximetry 97 % [facility] Work Phone: 06-13-2020 16:30-0500 Respiratory Rate 20 /min [facility] Work Phone: 06-13-2020 13:53-0500 Body Temperature 98.91 [degF] [facility] Work Phone: 06-13-2020 13:53-0500 Body weight 99.79 kg [facility] Work Phone: 01-26-2019 18:28-0400 Body Temperature 97.3 [degF] Louise bruna [place], [place] 01-26-2019 18:28-0400 BP Diastolic 81 mm[Hg] Louise Hobruna [place], [place] 01-26-2019 18:28-0400 BP Systolic 176 mm[Hg] [place] 01-26-2019 18:28-0400 Pulse (Heart Rate) 98 /min [place] 01-26-2019 18:28-0400 Pulse Oximetry 98 % [place] 01-26-2019 18:28-0400 Respiratory Rate 15 /min [place], [place] Encounters Encounter Date Encounter Type Care Provider Facility Start: 06-27-2023 End: 06-30-2023 ambulatory LOUISE Schneider [facility] Start: 06-27-2023 End: 06-29-2023 Subsequent hospital visit by physician Louise Mccullough MD Work Phone: [facility] Start: 03-14-2023 End: 03-15-2023 ambulatory Kayleigh Payan PA-C Facility[facility] Start: 02-20-2023 ambulatory Louise Mccullough MD Facility[facility] Start: 01-09-2023 End: 01-10-2023 [facility] Start: 01-09-2023 End: 01-10-2023 Encounter for other preprocedural examination [facility] Start: 01-03-2023 End: 01-04-2023 ambulatory Louise Mccullough MD Facility[facility] Start: 11-29-2022 End: 11-30-2022 ambulatory Louise Mccullough MD Facility[facility] Start: 09-12-2022 End: 09-15-2022 [facility] Start: 09-06-2022 ambulatory Larry Huff MD Facilit y:[facility] Start: 09-04-2022 End: 09-05-2022 ambulatory Larry Huff MD Facility[facility] Start: 08-29-2022 End: 08-30-2022 ambulatory LOUISE MCCULLOUGH [facility] Start: 08-29-2022 End: 08-29-2022 Subsequent hospital visit by physician Louise Mccullough MD Work Phone: [facility] Start: 06-20-2022 End: 06-22-2022 Subsequent hospital visit by physician Isaias Mejia Dr Room 4 [facility] Comment on above: Pain Start: 06-14-2022 End: 06-15-2022 ambulatory Larry Huff MD Facility[facility] Start: 05-17-2022 End: 05-18-2022 ambulatory Larry Huff MD Facility:[facility] Start: 03-09-2022 End: 03-09-2022 ambulatory LOUISE MCCULLOUGH Facility:[facility] Start: 03-09-2022 End: 03-09-2022 Patient encounter procedure Sharona Hoffman DPM Work Phone: Orthopaedics Comment on above: Chronic pain of both ankles (Primary Dx); Altered gait; Bilateral congenital genu valgum; Osteochondral lesion of talar dome; Peroneal tendinitis of right lower extremity; Sinus tarsi syndrome of right ankle; Gastrocnemius equinus, unspecified laterality Start: 03-07-2022 End: 03-09-2022 Subsequent hospital visit by physician Isaias Mejia Dr Room 2 [facility] Comment on above: Right wrist pain Start: 02-19-2022 End: 02-19-2022 Subsequent hospital visit by physician Louise Mccullough MD Work Phone: [facility] Start: 02-07-2022 End: 02-07-2022 ambulatory RK RENDON Facility:[facility] Start: 02-07-2022 End: 02-07-2022 Patient encounter procedure Rk Rendon DPM Work Phone: Orthopaedics Comment on above: OCD (osteochondritis dissecans) of ankle (Primary Dx); Chronic pain of right ankle Start: 01-18-2022 End: 01-19-[address] LOUISE MCCULLOUGH . Facility:[facility] Start: 01-12-2022 End: 01-13-[address] LOUISE MCCULLOUGH . Facility:[facility] Start: 01-02-2022 End: 01-02-2022 Subsequent hospital visit by physician Louise Mccullough MD Work Phone: [facility] Start: 11-21-2021 End: 11-22-[address] LOUISE MCCULLOUGH . Facility:[facility] Start: 11-10-2021 End: 11-11-[address] LOUISE MCCULLOUGH . Facility:[facility] Start: 11-02-2021 End: 11-03-[address] LOUISE MCCULLOUGH . Facility:[facility] Start: 10-27-2021 End: 10-28-[address] LOUISE MCCULLOUGH . Facility:[facility] Start: 10-07-2021 End: 10-07-2021 Emergency department patient visit Chuy Jacobson MD Work Phone: [facility] ED Comment on above: Elevated lactic acid level (Primary Dx); Leukocytosis, unspecified type; Abscess; History of miscarriage Start: 07-20-2021 End: 07-22-2021 Subsequent hospital visit by physician Isaias Ultrasound Room [facility] Ultrasound Comment on above: Urinary tract infect ion without hematuria, site unspecified; Retention of urine, unspecified Start: 07-15-2021 End: 07-15-2021 Subsequent hospital visit by physician Louise Mccullough MD [facility] Start: 07-12-2021 End: 07-12-2021 Subsequent hospital visit by physician Louise Mccullough MD Work Phone: [facility] Start: 06-20-2021 Transcribe Orders Danni Vogel MA [facility], Neuroscience Comment on above: Low back pain, unspe cified back pain laterality, unspecified chronicity, unspecified whether sciatica present (Primary Dx) Start: 01-19-2021 End: 01-19-2021 Subsequent hospital visit by physician Louise Mccullough MD Work Phone: [facility] Start: 10-03-2020 End: 10-03-2020 Subsequent hospital visit by physician Louise Mccullough MD Work Phone: [facility] Start: 10-01-2020 End: 10-01-2020 Subsequent hospital visit by physician Louise Mccullough MD Work Phone: [facility] Start: 08-26-2020 End: 08-28-2020 Subsequent hospital visit by physician [facility] Xr Dr Room 2 [facility] Comment on above: Leach syndrome, le ft; Osteochondritis dissecans of ankle, left Start: 06-13-2020 Emergency department patient visit [facility] Start: 06-13-2020 End: 06-13-2020 Emergency department patient visit Faye Go Work Phone: [facility] ED Comment on above: Trapezius strain, le ft, initial encounter (Primary Dx) Start: 12-15-2019 End: 12-17-2019 Subsequent hospital visit by physician [facility] Cat Scan Room [facility] CT Scan Comment on above: Arrived Start: 02-09-2019 End: 02-11-2019 Subsequent hospital visit by physician [facility] Mri Scanner [facility] MRI Comment on above: Sprain of tibiofibul ar ligament of left ankle, sequela Start: 01-26-2019 End: 01-26-2019 Emergency department patient visit [facility] ED Comment on above: Acute left ankle evangelina n (Primary Dx) Procedures Date Procedure Procedure Detail Performing Clinician Start: 08-29-2022 Urnls dip stick/tabl et reagent auto microscopy Louise Mccullough MD Work Phone: Start: 06-20-2022 Radex wrist complete minimum 3 views Louise Mccullough MD Work Phone: Start: 03-07-2022 Radex wrist complete minimum 3 views Louise Mccullough MD Work Phone: Start: 02-19-2022 Comprehensive metabo lic panel Louise Mccullough MD Work Phone: Start: 02-19-2022 Urnls dip stick/tabl et reagent auto microscopy Louise Mccullough MD Work Phone: Start: 01-02-2022 Urnls dip stick/tabl et reagent auto microscopy Louise Mccullough MD Work Phone: Start: 10-07-2021 Radiologic exam ches t single view Chuy Jacobson MD Work Phone: Start: 10-07-2021 End: 10-07-2021 Assay of lipase Chuy Jacobson MD Work Phone: Start: 10-07-2021 End: 10-07-2021 Hepatic function panel Chuy Jacobson MD Work Phone: Start: 10-07-2021 End: 10-07-2021 LACTATE, SEPSIS Chuy Jacobson MD Work Phone: Start: 10-07-2021 BASIC METABOLIC PANE L W/ REFLEX TO MG FOR LOW K Chuy Jacobson MD Work Phone: Start: 10-07-2021 Blood count complete auto&auto difrntl wbc Chuy Jacobson MD Work Phone: Start: 10-07-2021 Urinalysis microscopic only Chuy Jacboson MD Work Phone: Start: 10-07-2021 Urnls dip stick/tabl et rgnt auto w/o microscopy Chuy Jacobson MD Work Phone: Start: 07-20-2021 Us retroperitoneal r eal time w/image limited Dillon Wooten MD Work Phone: Start: 07-12-2021 Urnls dip stick/tabl et reagent auto microscopy Louise Mccullough MD Work Phone: Start: 01-19-2021 Ecg routine ecg w/le ast 12 lds w/i&r Louise Ordonez DO Work Phone: Start: 01-19-2021 Comprehensive metabo lic panel Louise Ordonez DO Work Phone: Start: 10-01-2020 Comprehensive metabo lic panel Louise Mccullough MD Work Phone: Start: 10-01-2020 FTI RATIO Louise Mccullough MD Work Phone: Start: 10-01-2020 Lipid panel Louise Mccullough MD Work Phone: Start: 08-26-2020 End: 08-26-2020 Radex ankle complete minimum 3 views Thierry Braun DPM Work Phone: Start: 06-13-2020 Radex foot complete minimum 3 views [facility] Work Phone: Start: 06-13-2020 Fibrin dgradj produc ts d-dimer quantitative [facility] Work Phone: Start: 06-13-2020 Assay of troponin quantitative [facility] Work Phone: Start: 06-13-2020 Basic metabolic pane l calcium total [facility] Go Work Phone: Start: 06-13-2020 Blood count complete auto&auto difrntl wbc [facility] Work Phone: Start: 06-13-2020 Radiologic exam ches t single view [facility] Work Phone: Start: 06-13-2020 Ecg routine ecg w/le ast 12 lds w/i&r [facility] Work Phone: Start: 02-09-2019 Mri any jt lower ext rem w/o contrast matrl Louise Mccullough Work Phone: Plan of Treatment Date Care Activity Detail Author Start: 10-25-2029 DTaP/Tdap/Td vaccine (5 - Td or Tdap) DTaP/Tdap/Td vaccine (5 - Td or Tdap) [facility] Start: 10-25-2029 DTaP/Tdap/Td vaccine (5 - Td) DTaP/Tdap/Td vaccine (5 - Td) [facility] Work Phone: Start: 10-25-2029 DTaP/Tdap/Td vaccine (8 - Td or Tdap) DTaP/Tdap/Td vaccine (8 - Td or Tdap) [facility] Start: 10-25-2029 DTaP/Tdap/Td vaccine (8 - Td) DTaP/Tdap/Td vaccine (8 - Td) [facility] [place] Start: 11-27-2022 Influenza vaccination B ON [facility] Start: 12-28-2021 Influenza vaccination B ON [facility] Start: 11-27-2021 Influenza vaccination Flu vaccine (# 1) [facility] Start: 2021 Urine microalbumin profile DTAP,TDAP,TD (1 - Tdap) [facility] Start: 04-29-2021 DEPRESSION ASSESSMENT DEPRESSION ASS ESSMENT [facility] Start: 12-28-2020 Influenza vaccination [facility] Start: 2020 CHLAMYDIA SCREENING (18-24) CHLAMYDIA SCREENING (18-24) [facility] Start: 2020 GC (GONORRHEA) SCREE TEODORO (18-24) GC (GONORRHEA) SCREENING (18-24) [facility] Start: 2020 Hepatitis C screening Hepatitis C sc reen [facility] Start: 2020 HEPATITIS C SCREENING HEPATITIS C SC REENING [facility] Start: 2020 HIV SCREENING HIV SCREENING [facility] Start: 12-29-2019 Influenza vaccination Flu vaccine (# 1) [place], [place] Start: 12-28-2018 Influenza vaccination Flu vaccine (# 1) [place] Start: 2018 Chlamydia screen Chlamydia screen [place], [place] Start: 2018 COVID-19 Vaccine (1) COVID-19 Vaccin e (1) [facility] Work Phone: Start: 2018 Meningococcal (ACWY) Vaccine (1 - 2-dose series) Meningococcal (ACWY) Vaccine (1 - 2-dose series) [place] Start: 2018 Screening for Chlamy christiano trachomatis [facility] Start: 2017 HIV screen HIV screen [place], [place] Start: 2017 [facility] Start: 2017 HPV vaccine (1 - Fem mejia 3-dose series) HPV vaccine (1 - Female 3-dose series) [place] Start: 2016 PEDS TO ADULT TRANSI TION ANNUAL ASSESSMENT PEDS TO ADULT TRANSITION ANNUAL ASSESSMENT [facility] Start: 07-30-2015 Varicella Vaccine (1 of 2 - 13+ 2-dose series) Varicella Vaccine (1 of 2 - 13+ 2-dose series) [place] Start: 2014 COVID-19 Vaccine (1) COVID-19 Vaccin e (1) [facility] Work Phone: Start: 2014 Depression Screen Depression Screen [facility] Start: 2014 PEDS TO ADULT TRANSI TION INITIAL DISCUSSION PEDS TO ADULT TRANSITION INITIAL DISCUSSION [facility] Start: 2013 HPV vaccine (1 - 2-d ose series) HPV vaccine (1 - 2-dose series) [facility] Start: 2012 MENINGOCOCCAL B: Consider based on risk (1 of 2 - Risk Bexsero 2-dose series) MENINGOCOCCAL B: Consider based on risk (1 of 2 - Risk Bexsero 2-dose series) [facility] Start: 2009 DTaP/Tdap/Td vaccine (1 - Tdap) DTaP/Tdap/Td vaccine (1 - Tdap) [place] Start: 07-30-2007 COVID-19 Vaccine (1) COVID-19 Vaccin e (1) [facility] Start: 07-30-2003 Hepatitis A vaccine (1 of 2 - 2-dose series) Hepatitis A vaccine (1 of 2 - 2-dose series) [facility] Start: 07-30-2003 Measles,Mumps,Rubell a (MMR) vaccine (1 of 2 - Standard series) Measles,Mumps,Rubella (MMR) vaccine (1 of 2 - Standard series) [place] Start: 01-28-2003 COVID-19 Vaccine (#1) COVID-19 Vacci ne (#1) [facility] Start: 2002 Polio vaccine 0-18 ( 1 of 3 - 4-dose series) Polio vaccine 0-18 (1 of 3 - 4-dose series) [place] Start: 2002 HEPATITIS B (1 of 3 - 3-dose series) HEPATITIS B (1 of 3 - 3-dose series) [facility] Start: 2002 Hepatitis B Vaccine (1 of 3 - 3-dose primary series) Hepatitis B Vaccine (1 of 3 - 3-dose primary series) [place] Start: 2002 Hepatitis C screening Hepatitis C sc reete [facility] End: 10-07-2021 Culture, Anaerobic and Aerobic [employer] Phone: Comment on above: One Time for 1 Occur rences starting 10/07/2021 until 10/07/2021 End: 10-07-2021 Culture, Blood 1 [employer] [employer] Phone: Comment on above: One Time for 1 Occur rences starting 10/07/2021 until 10/07/2021 End: 07-15-2021 Culture, Urine [facility] Work Phone: Comment on above: Once for 1 Occurrenc es starting 07/15/2021 until 07/15/2021 End: 01-02-2022 Culture, Urine [employer] [employer] Phone: Comment on above: Once for 1 Occurrenc es starting 01/02/2022 until 01/02/2022 End: 02-19-2022 Culture, Urine [employer] [employer] Phone: Comment on above: Once for 1 Occurrenc es starting 02/19/2022 until 02/19/2022 End: 08-29-2022 Culture, Urine [employer] Phone: Comment on above: Once for 1 Occurrenc es starting 08/29/2022 until 08/29/2022 EKG 12 Lead EKG 12 Lead ECG STAT 06/13/2020 1:57 PM EST [employer] Phone: End: 10-01-2020 Hemoglobin A1c/Hemoglobin.total in Blood Hemoglobin A1C Lab Routine Once for 1 Occurrences starting 10/01/2020 until 10/01/2020 [employer] Phone: Comment on above: Once for 1 Occurrenc es starting 10/01/2020 until 10/01/2020 Hemoglobin A1c/Hemoglobin.total in Blood Hemoglobin A1C Lab Routine 10/01/2020 10:55 AM EDT [employer] Phone: [facility] Payers Date Payer Category Payer Medicaid [id number] 2022 Private Health Insurance [id number] 2021 Unknown 2020 Medicaid [id number] 2018 Unknown [id number] [id number] .[id number] 2014 Unknown [employer] - EXCHANGE xxxxxxxxxxxx 2014-Present [phone] [address] [place] [address] xxxxxxxxxxxx [id number] .[id number] 2014 Unknown [employer] xxxxxxxxxxx 2014-Present [phone] [address] [place] [address] xxxxxxxxxxx [id number] .[id number] 2014 Unknown [employer] [id number] 2014-Present [phone] [address] [place] [address] [id number] [id number] .[id number] 2002 Unknown [id number] 2.16.840.1.578595.3.579.2 .593 2002 Unknown [id number] 2.16.840.1.668634.3.579.2 .593 2002 Unknown [id number] 2.16.840.1.772885.3.579.2 .593 2002 Unknown [id number] 2.16.840.1.144410.3.579.2 .593 2002 Unknown [id number] 2.16.840.1.709015.3.579.2 .593 2002 Unknown [id number] 2.16.840.1.443219.3.579.2 .593 2002 Unknown [id number] 2.16.840.1.349237.3.579.2 .196 2002 Unknown [id number] 2.16.840.1.363740.3.579.2 .196 2002 Unknown [id number] 2.16.840.1.436890.3.579.2 .196 2002 Unknown [id number] 2.16.840.1.364129.3.579.2 .196 2002 Unknown [id number] 2.16.840.1.613625.3.579.2 .196 2002 Unknown [id number] 2.16.840.1.191573.3.579.2 .196 2002 Unknown [id number] 2.16.840.1.580176.3.579.2 .196 2002 Unknown [id number] 2.16.840.1.783330.3.579.2 .196 2002 Unknown [id number] 2.16.840.1.217018.3.579.2 .196 2002 Unknown [id number] 2.16.840.1.564641.3.579.2 .196 2002 Unknown [id number] 2.16.840.1.369050.3.579.2 .173 2002 Unknown [id number] 2.16.840.1.668205.3.579.2 .173 2002 Unknown [id number] 2.16.840.1.912279.3.579.2 .173 2002 Unknown [id number] 2.16.840.1.291149.3.579.2 .173 2002 Unknown [id number] 2.16.840.1.820554.3.579.2 .173 2002 Unknown [id number] 2.16.840.1.760811.3.579.2 .173 2002 Unknown [id number] 2.16.840.1.036873.3.579.2 .173 1979 Unknown [id number] 2.16.840.1.267545.3.579.2 .173 1959 Unknown [id number] 1.2.840.966165.1.13.239.2 .7.3.160671.315 1959 Unknown [id number] 1.2.840.728966.1.13.239.2 .7.3.604755.315 Social History Date Type Detail Facility Start: 03-11-2013 End: 01-26-2019 Tobacco smoking status ALIS Never smoker [place] Start: 01-26-2019 End: 10-15-2021 Alcohol intake No [place] Start: 2002 Sex Assigned At Not on file [place] Start: 03-11-2013 End: 01-26-2019 Tobacco use and exposure Never used [place] Start: 01-26-2019 End: 10-15-2021 Alcohol intake Current non-drinker of alcohol (finding) [place] Start: 09-27-2021 End: 03-09-2022 Exposure to SARS-CoV-2 (event) Not sure [place] Tobacco smoking status ALIS Tobacco smoking consumption unknown [facility] History of tobacco use Passive smoker [facility] Work Phone: Start: 10-15-2021 History of Social function [facility] Clinical Notes 10-07-2021 to 03-09-2022 Sharona Hoffman DPM - 03/09/2022 4:43 PM Mellisa Rendon DPM - 02/07/2022 11:39 AM EDTInstructions Note Date & Type Note Facility 03-09-2022 Note HNO ID: [id number] Author: Sharona Hoffman DPM Service: ? Author Type: Physician Type: Progress Notes Filed: 03/09/2022 4:54 PM Note Text: Patient Visit for Blanka Farias 2000 21 year old female SUBJECTIVE: Chief Complaint: Patient presents with: Right Ankle - New, Pain Pain Scales: Verbal (Numeric Rating or Visual Analog Scale) Pain Level: 8 Pain Location: Ankle-Right Description: Aching, Throbbing Duration Amount of Time: 1 Duration Units: Years Frequency: Intermittent Intervention/Comfort measure: Cold, Heat, Relaxation, Medication Comments: She is here for pain in her right ankle. No known injury. Pain increases with prolong standing. Additional HPI: here today with mother present during visit Complicated history of bilateral ankle symptoms Complete previous records are unavailable for review Per patient's mother Previous LEFT ANKLE surgery Dr. Jonny Rene, DPM [place] arthroscopic surgery ? Later revised by Dr. 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 History of degenerative joint disease spine? Per mother PCP: Luoise Mccullough MD, MD No past medical history on file. Current Outpatient Medications Medication Sig DULoxetine (CYMBALTA) 60 mg capsule Take 60 mg by mouth once daily. METFORMIN 500 mg tablet (Patient not taking: Reported on 02/07/2022) No current facility-administered medications for this visit. ALLERGIES Allergen Reactions Neomycin-Polymyxin-* Other: See Comments red eyes No past surgical history on file. FAMILY HISTORY Problem Relation Age of Onset Cancer Paternal Grandmother Cataract Other Strabismus Other GGM maternal side Cancer Other Social History Tobacco Use Smoking status: Never Smokeless tobacco: Never Substance Use Topics Alcohol use: No Drug use: No Tobacco Use: Never REVIEW OF SYSTEMS: The remainder of the ROS was reviewed with the patient and is negative except as noted. GENERAL: denies fever or chills CARDIOVASCULAR: Denies current chest pain or SOB (shortness of breath) OBJECTIVE: General: Pleasant in no acute distress Lower extremity exam: Vascular exam: Normal vascular exam, palpable pluses with brisk capillary fill Neurological exam: Normal neurological exam, gross epicritic sensation intact Dermatological exam: LEFT ANKLE well healed scars from previous surgery Normal exam without rashes or lesions of skin. No evidence of evidence of petechiae, purpura, telangiectasia Musculoskeletal exam: Bilateral significant valgus deformity knees ROM indicates relative mild to moderate tightness of gastrocnemius / equinus bilateral Without obvious genu recurvatum Dorsiflexion bilateral ankle with knee extended negative 5 degrees With knee flexed 5 degrees Plantar flexion over 30 bilateral RIGHT ANKLE Vague tenderness to palpation along the course of peroneal tendons and sinus tarsi No tenderness to palpation or joint effusion ankle No tenderness to palpation medial talar dome LEFT No joint crepitus with ROM (Range of Motion) No subluxation peroneal tendons Other Gross range of motion appears to be intact to ankle and foot Normal single limb heel rise on affected side bilateral Gait mild to moderate eversion hind foot Significant valgus knee position LABS: Most recent labs reviewed LABORATORY STUDIES: No results for input(s): HB, WBC, PLT, WSR, CRP, CCPABG, RF, INR, CREATININE, ALB, PROT, URICACID, HBA1C, VITD25 in the last [id number] hours. 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 I discussed with the patient and mother probable significant orthopedic issues hips and knees Recommend follow up with ortho specializing in alignment issues in young patients Refer to custom [facility] as this may help some of her foot and ankle symptoms Surgical treatment RIGHT ANKLE medial Osteo Chondral Defect (O.C.D.) Talar Dome does not appear warranted at this time All questions were answered. Blanka Farias appeared to be well informed. Greater than 50% of the visit was spent face to face counseling and/o (more content not included)... [facility] 03-09-2022 History of Presen t illness Narrative Patient Visit for Blanka Farias 2000 21 year old female SUBJECTIVE: Chief Complaint: Patient presents with: Right Ankle - New, Pain Pain Scales: Verbal (Numeric Rating or Visual Analog Scale) Pain Level: 8 Pain Location: Ankle-Right Description: Aching, Throbbing Duration Amount of Time: 1 Duration Units: Years Frequency: Intermittent Intervention/Comfort measure: Cold, Heat, Relaxation, Medication Comments: She is here for pain in her right ankle. No known injury. Pain increases with prolong standing. Additional HPI: here today with mother present during visit Complicated history of bilateral ankle symptoms Complete previous records are unavailable for review Per patient's mother Previous LEFT ANKLE surgery Dr. Jonny Rene, DPM [place] arthroscopic surgery ? Later revised by Dr. 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 History of degenerative joint disease spine? Per mother PCP: Louise Mccullough MD, MD No past medical history on file. Current Outpatient Medications Medication Sig DULoxetine (CYMBALTA) 60 mg capsule Take 60 mg by mouth once daily. METFORMIN 500 mg tablet (Patient not taking: Reported on 02/07/2022) No current facility-administered medications for this visit. ALLERGIES Allergen Reactions Neomycin-Polymyxin-* Other: See Comments red eyes No past surgical history on file. FAMILY HISTORY Problem Relation Age of Onset Cancer Paternal Grandmother Cataract Other Strabismus Other GGM maternal side Cancer Other Social History Tobacco Use Smoking status: Never Smokeless tobacco: Never Substance Use Topics Alcohol use: No Drug use: No Tobacco Use: Never REVIEW OF SYSTEMS: The remainder of the ROS was reviewed with the patient and is negative except as noted. GENERAL: denies fever or chills CARDIOVASCULAR: Denies current chest pain or SOB (shortness of breath) OBJECTIVE: General: Pleasant in no acute distress Lower extremity exam: Vascular exam: Normal vascular exam, palpable pluses with brisk capillary fill Neurological exam: Normal neurological exam, gross epicritic sensation intact Dermatological exam: LEFT ANKLE well healed scars from previous surgery Normal exam without rashes or lesions of skin. No evidence of evidence of petechiae, purpura, telangiectasia Musculoskeletal exam: Bilateral significant valgus deformity knees ROM indicates relative mild to moderate tightness of gastrocnemius / equinus bilateral Without obvious genu recurvatum Dorsiflexion bilateral ankle with knee extended negative 5 degrees With knee flexed 5 degrees Plantar flexion over 30 bilateral RIGHT ANKLE Vague tenderness to palpation along the course of peroneal tendons and sinus tarsi No tenderness to palpation or joint effusion ankle No tenderness to palpation medial talar dome LEFT No joint crepitus with ROM (Range of Motion) No subluxation peroneal tendons Other Gross range of motion appears to be intact to ankle and foot Normal single limb heel rise on affected side bilateral Gait mild to moderate eversion hind foot Significant valgus knee position LABS: Most recent labs reviewed LABORATORY STUDIES: No results for input(s): HB, WBC, PLT, WSR, CRP, CCPABG, RF, INR, CREATININE, ALB, PROT, URICACID, HBA1C, VITD25 in the last 82944 hours. 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 I discussed with the patient and mother probable significant orthopedic issues hips and knees Recommend follow up with ortho specializing in alignment issues in young patients Refer to custom molded Foot Orthosis as this may help some of her foot and ankle symptoms Surgical treatment RIGHT ANKLE medial Osteo Chondral Defect (O.C.D.) Talar Dome does not appear warranted at this time All questions were answered. Blanka Farias appeared to be well informed. Greater than 50% of the visit was spent face to face counseling and/or coordinating care for the patient. Sharona Hoffman DPM documented in this encounter [facility] 02-07-2022 Note HNO ID: [id number] Author: Rk Rendon DPM Service: ? Author Type: Physician Type: Progress Notes Filed: 02/07/2022 2:48 PM Note Text: [facility] Department of Orthopedics [facility] Orthopedic Surgery Name: Blanka Farias Date of Service: February 07, 2022 CC/HPI: This 21 year old pleasant female patient presents to the clinic today with her mother present with 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 Up. The said her left ankle was doing fine but now it seems to be her right. She denies any history of injury or trauma and describes an insidious onset. She has an extensive history with substantial medical issues. She is seen today to discuss this problem and treatment. No past medical history on file. Current Outpatient Medications Medication Sig DULoxetine (CYMBALTA) 60 mg capsule Take 60 mg by mouth once daily. METFORMIN 500 mg tablet (Patient not taking: Reported on 02/07/2022) No current facility-administered medications for this visit. ALLERGIES Allergen Reactions Neomycin-Polymyxin-* Other: See Comments red eyes No past surgical history on file. FAMILY HISTORY Problem Relation Age of Onset Cancer Paternal Grandmother Cataract Other Strabismus Other GGM maternal side Cancer Other Social History Tobacco Use Smoking status: Never Smokeless tobacco: Never Substance Use Topics Alcohol use: No Drug use: No Physical Exam: The patient is alert and oriented x 3 in no apparent acute distress. 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 Discussed results of clinical and radiographic examination with the patient and mother in detail along with treatment options. Suggested consultation Dr. Hoffman to see if an ankle scope would be warranted. They said she had the same thing on her left and had an ankle scope and eventually she ended up with a talar replacement. Suggested consultation with Dr. Hoffman regarding this matter to see if anything can be done for her. Rk Rendon DPM [facility] 02-07-2022 History of Presen t illness Narrative [facility] Department of Orthopedics [facility] Orthopedic Surgery Name: Blanka Farias Date of Service: February 07, 2022 CC/HPI: This 21 year old pleasant female patient presents to the clinic today with her mother present with 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 Up. The said her left ankle was doing fine but now it seems to be her right. She denies any history of injury or trauma and describes an insidious onset. She has an extensive history with substantial medical issues. She is seen today to discuss this problem and treatment. No past medical history on file. Current Outpatient Medications Medication Sig DULoxetine (CYMBALTA) 60 mg capsule Take 60 mg by mouth once daily. METFORMIN 500 mg tablet (Patient not taking: Reported on 02/07/2022) No current facility-administered medications for this visit. ALLERGIES Allergen Reactions Neomycin-Polymyxin-* Other: See Comments red eyes No past surgical history on file. FAMILY HISTORY Problem Relation Age of Onset Cancer Paternal Grandmother Cataract Other Strabismus Other GGM maternal side Cancer Other Social History Tobacco Use Smoking status: Never Smokeless tobacco: Never Substance Use Topics Alcohol use: No Drug use: No Physical Exam: The patient is alert and oriented x 3 in no apparent acute distress. 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 Discussed results of clinical and radiographic examination with the patient and mother in detail along with treatment options. Suggested consultation Dr. Hoffman to see if an ankle scope would be warranted. They said she had the same thing on her left and had an ankle scope and eventually she ended up with a talar replacement. Suggested consultation with Dr. Hoffman regarding this matter to see if anything can be done for her. Rk Rendon DPM documented in this encounter [facility] 01-12-2022 Note PROCEDURE: XR ANKLE RT MIN 3 VIEWS COMPARISON: None. HISTORY: Arthralgia of the ankle and/or foot FINDINGS: BONES:No acute fracture or dislocation. Slight irregularity noted along the medial talar dome possibly representing an osteochondral injury SOFT TISSUES:Negative. No visible soft tissue swelling. EFFUSION:None visible. OTHER: Negative. IMPRESSION: Possible osteochondral injury medial talar dome. Consider MRI for further evaluation Electronically authenticated by: GAGE LYNCH Date: 2022-01-12 16:36 [facility] 10-07-2021 Hospital Discharg e Chuy Parsons MD - 10/07/2021 Please also follow-up with Blanka [employer] physician as discussed She may discontinue the Omnicef and Levaquin and start Augmentin You may also contact Dr. Finley concerning abscess documented in this encounter [facility] [employer] Phone: Evaluation note Diagnosis Leach syndrome, left Osteochondritis dissecans of ankle, left documented in this encounter [employer] Phone: evaluation note* Diagnosis Low back pain, unspecified back pain laterality, unspecified chronicity, unspecified whether sciatica present- [facility] Diagnosis Urinary tract infection without hematuria, site unspecified Retention of urine, unspecified documented in this encounter [employer] Phone: evaluation note* Diagnosis Elevated lactic acid level- Primary Other nonspecific abnormal serum enzyme levels Leukocytosis, unspecified type Abscess Cellulitis and abscess of unspecified site History of miscarriage Personal history of other genital system and obstetric disorders documented in this encounter [employer] Phone: evaluation note* Diagnosis 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 Chronic pain of right ankle [facility] Diagnosis Chronic pain of both ankles- Primary Altered gait Abnormality of gait 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 Disorder of bone and cartilage, unspecified Peroneal tendinitis of right lower extremity Other enthesopathy of ankle and tarsus 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, unspecified laterality [facility] Diagnosis Right wrist pain Pain in joint, forearm documented in this encounter [employer] Phone: evaluation note* Diagnosis Pain Generalized pain documented in this encounter [employer] Phone: reason for referral (narrative)* Consultation (Routine) - Pending Review Specialty Diagnoses / Procedures Referred By Contac t Referred To Contact Neurosurgery Diagnoses Low back pain, unspecified back pain laterality, unspecified chronicity, unspecified whether sciatica present Louise Mccullough MD [address] [place] [address] Joey Gillespie MD [address] [place] [address] Referral ID Status Reason Start Date Expiration Date V isits Requested Visits Authorized [id number] Pending Review 06/20/2021 06/20/2022 1 1 [facility] Reason for Referral Status Reason Specialty Diagnoses / Procedures Referred By Contact Referred To Contact Pending Review Radiology Diagnoses Sprain of tibiofibular ligament of left ankle, sequela Procedures MRI ANKLE LEFT WO CONTRAST Louise Mccullough MD [address] [place] [id number] Specialty Diagnoses / Procedures Referred By Asael t Referred To Contact Radiology Diagnoses Urinary tract infection without hematuria, site unspecified Retention of urine, unspecified Procedures US URINARY BLADDER LIMITED Dillon Wooten MD [address] [place] [address] Referral ID Status Reason Start Date Expiration Date Visits Re quested Visits Authorized Closed 07/17/2021 07/17/2022 1 1 Assessments Diagnosis Sprain of tibiofibular ligament of left ankle, sequela Diagnosis Acute left ankle pain- Primary Diagnosis Trapezius strain, left, initial encounter- Primary Advance Directives Documents on File Type Date Recorded Patient Potato Picker Expl 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 Advance Directives and Living Will Power of Rehab Consultant Documents on File Type Date Recorded Patient Potato Picker Expl anation ACP-Advance Directive ACP-Power of Rehab Consultant Documents on File Type Date Recorded Patient Potato Picker Expl anation Advance Directives and Living Will Power of Rehab Consultant Documents on File Type Date Recorded Patient Potato Picker Expl anation ACP-Advance Directive ACP-Power of Rehab Consultant Summary Purpose Family History No Family History Records FoundNo Family History Records FoundNo Family History Records FoundNo Family History Records FoundNo Family History Records FoundNo Family History Records FoundNo Family History Records Found Hospital Course Note Send Summary: Discharge Summ precious Providers: Provider RoleProvider Name Thierry Ojeda Amolak PrimaryHoy, Douglas M AttendingThierry Braun Note Recipients: Louise Mccullough MD - [id number] [] Thierry Braun DPM Discharge: Summary: Admission Date: .29-Jan-2020 11:21:00 Discharge Date: 30-Jan-2020 Attending Physician at Discharge: Thierry Braun Admission Reason: Post-operative pain control Final Discharge Diagnoses: Ankle fracture, left Procedures: Date: 29-Jan-2020 17:18:00 Procedure Name: 1. medial malleolar osteotom with ORIF of Medial malleolus left 2. ORIF of talar defect with talar allograft implant 3. application of amniotic graft 4. repair of deltoid ligament Condition at Discharge: Satisfactory Disposition at Discharge: .Home Vital Signs: T PRBPSpO2 [id number]/7294% Date/Time01/29 5:2910/3 5:291/3 5: 5: 5:29 Range(36.1C - 36.6C ) (72 - 94 ) (14 - 14 ) (113 - 131 )/ (72 - 78 ) (94% - 99% ) Date: Weight/Scale Type:Height: (more content not included)... Note Post Operative Note: PreOp D iagnosis: osteochondral defect talus with ankle arthritis. ankle ligament sprain Post-Procedure Diagnosis: same Procedure: 1. medial malleolar osteotom with ORIF of Medial malleolus left 2. ORIF of talar defect with talar allograft implant 3. application of amniotic graft 4. repair of deltoid ligament 5. repir partial tear of posterior tibial tendon Surgeon: Thierry Braun Resident/Fellow/Other Lute Packer Or Applier: Nanci Cleary PGY5 Anesthesia: General with regional I.V. Fluids: per anesthesia Estimated Blood Loss (mL): 10ccs Blood Replacement: n/a Specimen: yes. talus defect left Complications: n/a Findings: see operative report Patient Returned To/Condition: stable Urine Output: n/a Drains and/or Catheters: n/a Tourniquet Times: 90 mins Implants: talar allograft, arthrex headless compression screws Operative Report Dictated: Dictation: no Signature/Cosignature/Attestation: Note Completion: I am a:Resident/Fellow Attending AttestationI was present for the entire p (more content not included)... Procedure Findings Note Post Operative Note: PreOp D iagnosis: osteochondral defect talus with ankle arthritis. ankle ligament sprain Post-Procedure Diagnosis: same Procedure: 1. medial malleolar osteotom with ORIF of Medial malleolus left 2. ORIF of talar defect with talar allograft implant 3. application of amniotic graft 4. repair of deltoid ligament 5. repir partial tear of posterior tibial tendon Surgeon: Thierry Braun Resident/Fellow/Other Lute Packer Or Applier: Nanci Cleary PGY5 Anesthesia: General with regional I.V. Fluids: per anesthesia Estimated Blood Loss (mL): 10ccs Blood Replacement: n/a Specimen: yes. talus defect left Complications: n/a Findings: see operative report Patient Returned To/Condition: stable Urine Output: n/a Drains and/or Catheters: n/a Tourniquet Times: 90 mins Implants: talar allograft, arthrex headless compression screws Operative Report Dictated: Dictation: no Signature/Cosignature/Attestation: Note Completion: I am a:Resident/Fellow Attending AttestationI was present for the entire p (more content not included)... Discharge Instructions * Attachments The following attachments cannot be sent through Care Everywhere. * Ankle Sprain: Teen (Croatian) documented in this encounter* Instructions* Faye Go MD - 06/13/2020 Tylenol and/or Motrin as needed for any pain. Take Flexeril as needed for muscle spasms. Try [id number] ThermaCare patches or similar product as desired for comfort. Up with your primary care physician within 1 week if symptoms not resolved. Seek medical attention prior to this for any acute concerns. * Attachments The following attachments cannot be sent through Care Everywhere. * Upper Back: Exercises (Croatian) documented in this encounter Additional Source Comments Reason for Visit (unrecogniz ed section and content) Status Reason Specialty Diagnoses / Procedures Referre d By Contact Referred To Contact Closed Radiology Diagnoses Sprain of tibiofibular ligament of left ankle, sequela Procedures [facility] MRI LOWER EXTREM JT, W/O CONTRAST Louise Mccullough MD [address] [place] [address] [facility] [address] [id number] Status Reason Specialty Diagnoses / Procedures Referre d By Contact Referred To Contact Closed Radiology Diagnoses Secondary osteoarthritis, left ankle and foot Osteochondritis dissecans, left ankle and joints of left foot Pain in left ankle and joints of left foot Procedures [facility] CT SCAN OF LEG CONTRAST Thierry Braun DPM [address] [place] [address] [facility] [address] Scan [address] [place] [address] Reason Comments Ankle Pain left ankle Reason Comments Chest Pain pt states she was si tting in a chair and suddenly had sharp chest pain, through to her back and down her left arm. PT states her left arm now feels heavy Specialty Diagnoses / Procedures Referred By Asael t Referred To Contact Radiology Diagnoses Urinary tract infection without hematuria, site unspecified Retention of urine, unspecified Procedures US URINARY BLADDER LIMITED Dillon Wooten MD [address] [place] [address] Referral ID Status Reason Start Date Expiration Date Visits Re quested Visits Authorized [id number] Closed 07/17/2021 07/17/2022 1 1 Reason Comments Abscess Tailbone, Onset 6 da ys ago, worse now Reason Comments Pain Specialty Diagnoses / Procedures Referred By Contact Referred To Contact Podiatry / ORTHOPAEDIC SURGERY Diagnoses Osteochondral defect, Foot pain *Hand carry XR and MRI Procedures [facility] AC[facility] Louise Mccullough MD [address] [place] [address] Rk Rendon DPM [address] [place] [address] Referral ID Status Reason Start Date Expiration Date Visits Re quested Visits Authorized [id number] Closed 02/07/2022 04/28/2022 1 1 Reason Comments New Pain Specialty Diagnoses / Procedures Referred By Contac t Referred To Contact Podiatry / ORTHOPAEDIC SURGERY Diagnoses Encounter for general adult medical examination without abnormal findings RIGHT ANKLE (CONSULT FOR SURGERY) Procedures OFFICE/OUTPATIENT ESTABLISHED MOD MDM 30-39 MIN TANIA ACUTE Sharona Hoffman DPM [address] [place] [address] Sharona Hoffman DPM [address] [place] [address] Referral ID Status Reason Start Date Expiration Date Visits Re quested Visits Authorized [id number] Closed 03/09/2022 04/28/2022 1 1 INFORMATION SOURCE (unrecogn ized section and content) DATE CREATED AUTHOR 02/06/2020 [facility] DATE CREATED AUTHOR AUTHOR'S ORGANIZ ATION 06/14/2020 Mariah cook DATE CREATED AUTHOR AUTHOR'S ORGANIZ ATION 10/15/2020 [facility] DATE CREATED AUTHOR AUTHOR'S ORGANIZ ATION 03/10/2022 [facility] DATE CREATED AUTHOR AUTHOR'S ORGANIZ ATION 07/19/2022 [facility] DATE CREATED AUTHOR AUTHOR'S ORGANIZ ATION 03/14/2023 [facility] DATE CREATED AUTHOR AUTHOR'S ORGANIZ ATION 06/29/2023 [facility] Ordered Prescriptions (unrec ognized section and content) Prescription Sig Dispensed Refills Start Date End Da te cyclobenzaprine (FLEXERIL) 10 MG tablet Take 1 tablet by mouth 3 times daily as needed for Muscle spasms 21 tablet 0 06/13/2020 06/23/2020 Prescription Sig Dispensed Refills Start Date End Da te amoxicillin-clavulanate (AUGMENTIN) 875-125 MG per tablet Take 1 tablet by mouth 2 times daily for 7 days 14 tablet 0 10/07/2021 10/14/2021 Care Teams (unrecognized sec tion and content) Braid Maker Relationship Specialty Start Date End Date Louise Mccullough MD [address] [place] [address] PCP - General Family Medicine 06/16/21 Braid Maker Relationship Specialty Start Date End Date Louise Mccullough MD [address] [place] [phone] PCP - General Family Medicine 03/18/20 Braid Maker Relationship Specialty Start Date End Date Louise Mccullough MD [address] [place] [address] PCP - General Family Medicine 03/18/20 Braid Maker Relationship Specialty Start Date End Date Louise Mccullough MD [address] [id number] PCP - General Family Medicine 03/18/20 Braid Maker Relationship Specialty Start Date End Date Louise Mccullough MD [address] [place] [address] PCP - General Family Medicine 03/18/20 Braid Maker Relationship Specialty Start Date End Date Louise Mccullough MD [address] [phone] PCP - General Family Medicine 03/18/20 Braid Maker Relationship Specialty Start Date End Date Louise Mccullough MD [address] [phone] PCP - General 06/27/09 Braid Maker Relationship Specialty Start Date End Date Louise Mccullough MD [address] [phone] PCP - General 06/27/09 Braid Maker Relationship Specialty Start Date End Date Louise Mccullough MD [address] [id number] PCP - General Family Medicine 03/18/20 Braid Maker Relationship Specialty Start Date End Date Louise Mccullough MD [address] [phone] PCP - General Family Medicine 03/18/20 Braid Maker Relationship Specialty Start Date End Date Louise Mccullough MD [address] [phone] PCP - General Family Medicine 03/18/20 Scheduled Active and Recently Administ ered Medications (unrecognized section and content) Medication Order 10/05/2021 10/06/2021 10/07/2021 0.9 % sodium chloride IV bolus 2,586 mL (COMPLETED) 2,586 mL (30 mL/kg 86.2 kg), IntraVENous, at 5,172 mL/hr, Administer over 30 Minutes, ONCE, On 10/07/21 at 1815, For 1 dose 1853 (New Bag - Prov ider: Lin Arevalo RN)2156 (Stopped - Provider: Lin Arevalo RN) lidocaine-EPINEPHrine 1 %-1:[id number] injection 20 mL (COMPLETED) 20 mL, IntraDERmal, ONCE, 1 dose, On 10/07/21 at 1600 1721 (Give PPD - Pro vider: Alida Gallagher RN) lidocaine-prilocaine (EMLA) cream (COMPLETED) Topical, ONCE, On 10/07/21 at 1600, For 1 dose, Apply to abscess region 1557 (Given - Provid er: Alida Gallagher RN) LORazepam (ATIVAN) injection 0.5 mg (COMPLETED) 0.5 mg, IntraVENous, ONCE, 1 dose, On 10/07/21 at 1715 1719 (Given - Provid er: Alida Gallagher RN) LORazepam (ATIVAN) injection 0.5 mg (COMPLETED) 0.5 mg, IntraVENous, ONCE, 1 dose, On 10/07/21 at 1800 1802 (Given - Provid er: Alida Gallagher RN) vancomycin (VANCOCIN) 1,500 mg in dextrose 5 % 500 mL IVPB (COMPLETED) 1,500 mg (17.4 mg/kg), IntraVENous, at 250 mL/hr, Administer over 120 Minutes, ONCE, On 10/07/21 at 1615, For 1 dose 1742 (New Bag - Prov ider: Alida Gallagher RN)2156 (Stopped - Provider: Lin Arevalo RN) Continuous Medication Order 10/05/2021 10/06/2021 10/07/2021 0.9 % sodium chloride infusion 1,000 mL, IntraVENous, at 125 mL/hr, Administer over 8 Hours, CONTINUOUS, Starting on 10/07/21 at 1600 1600 (Due) Source Comments (unrecognize d section and content) In the event this informatio n is protected by the Federal Confidentiality of Alcohol and Drug Abuse Patient Records regulations: The Federal rules restrict any use of the information to criminally investigate or prosecute any alcohol or drug abuse patient.[facility] Health[facility] the event this information is protected by the Federal Confidentiality of Alcohol and Drug Abuse Patient Records regulations: The Federal rules restrict any use of the information to criminally investigate or prosecute any alcohol or drug abuse patient.[facility] FOR RECORDS PERTAINING TO PATIENTS WHO ARE OR HAVE BEEN ENROLLED IN A CHEMICAL DEPENDENCY/SUBSTANCEABUSE PROGRAM, SOME INFORMATION MAY BE OMITTED. This clinical summary was aggregated from multiple sources. Caution should be exercised in using it in the provision of clinical care. This summary normalizes information from multiple sources, and as a consequence, information in this document may materially change the coding, format and clinical context of patient data. In addition, data may be omitted in some cases. CLINICAL DECISIONS SHOULD BE BASED ON THE PRIMARY CLINICAL RECORDS. [facility]. provides no warranty or guarantee of the accuracy or completeness of information in this document.
== END 2023-07-19 10:59 | disposition home or self-care (01) ==
LOC: NM 10:58
PROVIDERS: PCP Family Medicine; Visit Provider Family Medicine
DX: M51.26 Other intervertebral disc displacement, lumbar region (principal); M51.36 Other intervertebral disc degeneration, lumbar region; M50.90 Cervical disc disorder, unspecified, unspecified cervical region; M25.551 Pain in right hip
CPT/HCPCS: 78306; A9503

== ENCOUNTER 2023-07-19 13:26 | Outpatient (OUT) | payer OTHER, SELFPAY ==
--- OUTSIDE RECORDS SUMMARY | 2023-07-19 13:37 | XMS_ITS | CCD ---
Author Organization [facility] Care Team Providers Care Security Compliance Engineer Name Role Phone Louise Mccullough Primary Care [...] PA-C, Kayleigh Stoner Attending Unavacrista Mccullough [facility] Unavaila diana Mccullough MD, [facility] Unavaila diana Hernandez, Jackie Briggs Attending Unavailable Louise Mccullough MD [facility] Unavaila diana Hernandez, Jackie Briggs Attending Unavailable Louise Mccullough MD [facility] Unavaila diana Hernandez, Jackie Briggs Attending Unavailable Larry Huff MD, Chi Attending Unavailable Louise Mccullough MD [facility] Unavailisak Huff MD, Larry Gloria Attending Unavailable Louise Mccullough MD Primary [facility] Unavailisak Huff MD, Larry Gloria Referring Unavailable Refugio ARIAS, Larry Gloria Attending Unavailable Louise Mccullough MD [facility] Unavailisak Huff MD, Larry Gloria Referring Unavailable Louise Mccullough MD [facility] UnavailLarry Trivedi MD, Chi Attending Unavailable HOY, [...] Unavailable Louise Mccullough MD Primary Care Provider [phone] Allergies Allergy Classification Reported Allergen(s) Allergy Type Date of Onset Reaction(s) Facility Anti-Epileptic Agents (5 sources) topiramate Drug Allergy 06-27-19 16 Swelling [facility] (16 sources) topiramate Drug Allergy 06-27-19 16 Swelling [facility]- [place], [place] (3 sources) Hydrocortisone / Neomycin / Polymyxin B; Translations: [NEOMYCIN-POLYMYXI N-HC] Drug Allergy 03-11-20 13 Other: See Comments [facility] (1 source) topiramate; Translations: [Topamax] Drug Allergy [facility] (1 source) smoke; Translations: [smoke] Propensity to adverse reactions (disorder) [facility] (1 source) Grass; Translations: [Grass] Propensity to adverse reactions (disorder) [facility] Medications Current Medications Medication Drug Class(es) [...] daily 0 06/13/2020 Discontinued (LIST CLEANUP) cholecalciferol 00751 unt oral capsule (5 sources) Vitamin D End: 06-13-2020 Cholecalciferol (VITAMIN D3) 91790 UNITS CAPS Take 2,000 capsules by mouth [...] Anesthetic Start: 10-07-2021 End: 10-07-2021 lidocaine-EPINEPHrine 1 %-1:795410 injection 20 mL gabapentin 400 mg oral [...] Cortisolon 06-28-2023 Cortisol 12.6 ug/dL Normal 2.5-19.5 [facility] Comment on above: Result Comment: Cortisol Reference Range: AM 6.0-18.4 PM 2.7-10.5 Performed By: #### V D25, FE, T4, GLYHGB, FT3, CORTI, LIPR, INSU ####[facility] [address] [place] [address] Lab Director: Bala Borges MD#### CP, TSH, CDP ####[address] [place], [place] [address] Lab Director: Gage Barraza MD Hemoglobin A1Con 06-28-2023 Glucose [Mass/Vol] 100 mg/dL [facility] Comment on above: Result Comment: The ADA and AACC recommend providing the estimated average glucose result to permit better patient understanding of their HBA1c result. Performed By: #### V D25, FE, T4, GLYHGB, FT3, CORTI, LIPR, INSU ####[facility] [address] [place] [address] Lab Director: Bala Borges MD#### CP, TSH, CDP ####[address] [place] [address] Lab Director: Gage Barraza MD HbA1c (Bld) [Mass fraction] 5.1 % Normal 4.0-6.0 [facility] Comment on above: Performed By: #### V D25, FE, T4, GLYHGB, FT3, CORTI, LIPR, INSU ####[address] [place] [address] Lab Director: Bala Borges MD#### CP, TSH, CDP ####[address] , [place] [phone] Lab Director: Gage Barraza MD Insulinon 1 Insulin 18.2 mU/L [facility] Comment on above: Performed By: #### V D25, FE, T4, GLYHGB, FT3, CORTI, LIPR, INSU ####[facility] [address] [place] [address] Lab Director: Bala Borges MD#### CP, TSH, CDP ####[facility] [place], [place] [phone] [facility] Director: Gage Barraza MD Reference Range Normal [facility] Comment on above: Result Comment: Fast in.6-24.9 30 min: 20-112 60 min: 29-88 90 min: 26-84 120 min: 22-79 Performed By: #### V D25, FE, T4, GLYHGB, FT3, CORTI, LIPR, INSU ####[address] [place], [place] [phone] Lab Director: Bala Borges MD#### CP, TSH, CDP ####[address] [place], [place] [phone] [facility] Director: Gage Barraza MD Ironon 06-28-2023 Iron [Mass/Vol] 53 ug/dL Normal 37-145 [facility] Comment on above: Performed By: #### V D25, FE, T4, GLYHGB, FT3, CORTI, LIPR, INSU #### [address] [place] [address] Burr Bench Hand: Bala Borges MD #### CP, TSH, CDP #### [address] [place], [place] 896[address]83 Bur[employer] Bench Hand: Gage Barraza MD Lipid Profileon Cholesterol [Mass/Vol] 189 mg/dL Normal <200 [facility] Comment on above: Result Comment: Cholesterol Guidelines: <200 Desirable 200-240 Borderline >240 Undesirable Performed By: #### V D25, FE, T4, GLYHGB, FT3, CORTI, LIPR, INSU ####[facility] [place] [address] Lab Director: Bala Borges MD#### CP, TSH, CDP ####[address] [place], [place] [phone] Lab Director: Gage Barraza MD Cholesterol in HDL [Mass/Vol] 34 mg/dL Low >40 [facility] Comment on above: Result Comment: HDL Guidelines: <40 Undesirable 40-59 Borderline >59 Desirable Performed By: #### V D25, FE, T4, GLYHGB, FT3, CORTI, LIPR, INSU ####[facility] [address] [place] [address] Lab Director: Bala Borges MD#### CP, TSH, CDP ####[address] [place], [place] [phone] Lab Director: Gage Barraza MD Cholesterol in LDL [Mass/Vol] 122 mg/dL Normal 0-130 [facility] Comment on above: Result Comment: LDL Guidelines: <100 Desirable 100-129 Near to/above Desirable 130-159 Borderline >159 Undesirable Direct (measured) LDL and calculated LDL are not interchangeable tests. Performed By: #### V D25, FE, T4, GLYHGB, FT3, CORTI, LIPR, INSU ####[facility] [address] [place] [address] Lab Director: Bala Borges MD#### CP, TSH, CDP ####[address] [place], [place] 7[address]83 Lab Director: Gage Barraza MD Cholesterol.total/Chol esterol in HDL [Mass ratio] 5.6 {ratio} High <5 [facility] Comment on above: Performed By: #### V D25, FE, T4, GLYHGB, FT3, CORTI, LIPR, INSU ####[facility] [address] [place] [address] Lab Director: Bala Borges MD#### CP, TSH, CDP ####[address] [place], [place] [phone] Lab Director: Gage Barraza MD Triglyceride [Mass/Vol] 164 mg/dL High <150 [facility] Comment on above: Result Comment: Triglyceride Guidelines: <150 Desirable 150-199 Borderline 200-499 High >499 Very high Based on AHA Guidelines for fasting triglyceride, January 2012. Performed By: #### V D25, FE, T4, GLYHGB, FT3, CORTI, LIPR, INSU ####[facility] [place], [place] [phone] Director: Bala Borges MD#### CP, TSH, CDP ####[address] [place], [place] 786[address]83 Lab Director: Gage Barraza MD T3, Freeon 06-28-2023 Free T3 [Mass/Vol] 3.65 pg/mL Normal 2.02-4.43 [facility] Comment on above: Performed By: #### V D25, FE, T4, GLYHGB, FT3, CORTI, LIPR, INSU ####[facility] [address] [place], [place] [phone] Director: Bala Borges MD#### CP, TSH, CDP ####[address] , [place] [phone] Lab Director: Gage Barraza MD Thyroxine T4on 06-28-2023 T4 [Mass/Vol] 9.1 ug/dL Normal 4.5-11.7 [facility] Comment on above: Performed By: #### V D25, FE, T4, GLYHGB, FT3, CORTI, LIPR, INSU ####[facility] [address] [place], [place] [phone] Director: Bala Borges MD#### CP, TSH, CDP ####[address] , [place] [phone] Lab Director: Gage Barraza MD Vitamin D 25 OHon 06-28-2023 Vitamin D 25 [place] 23.6 ng/mL Low >29.9 [facility] Comment on above: Result Comment: Reference Range: Vitamin D status Range Deficiency <20 ng/mL Mild Deficiency 20-30 ng/mL Sufficiency 30-100 ng/mL Toxicity >100 ng/mL Performed By: #### V D25, FE, T4, GLYHGB, FT3, CORTI, LIPR, INSU ####[facility] [place] [address] Lab Director: Bala Borges MD#### CP, TSH, CDP ####[facility] [place] [address] Lab Director: Gage Barraza MD [...] Madhavi Bhakta DO 06/28/23 Final result Normal [facility] CBC with Diffon 06-27-2023 Abs. Basophil 0.03 k/uL Normal 0.00-0.20 [facility] Comment on above: Performed By: #### V D25, FE, T4, GLYHGB, FT3, CORTI, LIPR, INSU #### [facility] [employer] [address] [place] [address] Burr Bench Hand: Bala Borges MD #### CP, TSH, CDP #### [facility] [address] [place] [address] Burr Bench Hand: Gage Barraza MD Abs.Imm.Granulocyte 0.03 k/uL Normal 0.00-0.30 [facility] Comment on above: Performed By: #### V D25, FE, T4, GLYHGB, FT3, CORTI, LIPR, INSU #### [address] [address] [employer] Bench Hand: Bala Borges MD #### CP, TSH, CDP #### [address] [place] [phone] [employer] Bench Hand: Gage Barraza MD Abs.Neutrophil (Seg) 5.65 k/uL Normal 1.80-8.00 [facility] Comment on above: Performed By: #### V D25, FE, T4, GLYHGB, FT3, CORTI, LIPR, INSU #### [address] [address] [employer] Bench Hand: Bala Borges MD #### CP, TSH, CDP #### [address] [place] [phone] [employer] Bench Hand: Gage Barraza MD Basophils/100 WBC (Bld) 0 % Normal 0-2 [facility] Comment on above: Performed By: #### V D25, FE, T4, GLYHGB, FT3, CORTI, LIPR, INSU #### [place] [address] Burr Bench Hand: Bala Borges MD #### CP, TSH, CDP #### [address] [place] [phone] [employer] Bench Hand: Gage Barraza MD Eosinophils (Bld) [#/Vol] 0.16 10*3/uL Normal 0.00-0.44 [facility] Comment on above: Performed By: #### V D25, FE, T4, GLYHGB, FT3, CORTI, LIPR, INSU #### [address] [address] [employer] Bench Hand: Bala Borges MD #### CP, TSH, CDP #### [address] [place] [phone] [employer] Bench Hand: Gage Barraza MD Eosinophils/100 WBC (Bld) 2 % Normal 1-4 [facility] Comment on above: Performed By: #### V D25, FE, T4, GLYHGB, FT3, CORTI, LIPR, INSU #### [address] [place], [place] [phone] Burr Bench Hand: Bala Borges MD #### CP, TSH, CDP #### [address] [place], [place] [phone] Burr Bench Hand: Gage Barraza MD Erythrocyte distribution width (RBC) [Ratio] 13.6 % Normal 11.8-14.4 [facility] Comment on above: Performed By: #### V D25, FE, T4, GLYHGB, FT3, CORTI, LIPR, INSU #### [address] [phone] Burr Bench Hand: Bala Borges MD #### CP, TSH, CDP #### [address] [place] [address] Burr Bench Hand: Gage Barraza MD Hematocrit (Bld) [Volume fraction] 38.8 % Normal 36.3-47.1 [facility] Comment on above: Performed By: #### V D25, FE, T4, GLYHGB, FT3, CORTI, LIPR, INSU #### [address] [phone] [employer]r Bench Hand: Bala Borges MD #### CP, TSH, CDP #### [address] [place] [address] Burr Bench Hand: Gage Barraza MD Hemoglobin (Bld) [Mass/Vol] 13.0 g/dL Normal 11.9-15.1 [facility] Comment on above: Performed By: #### V D25, FE, T4, GLYHGB, FT3, CORTI, LIPR, INSU #### [address] [address] Burr Bench Hand: Bala Borges MD #### CP, TSH, CDP #### [address] [place] [phone] Burr Bench Hand: Gage Barraza MD Immature granulocytes/100 WBC (Bld) 0 % Normal 0 [facility] Comment on above: Performed By: #### V D25, FE, T4, GLYHGB, FT3, CORTI, LIPR, INSU #### [address] [address] [employer] Bench Hand: Bala Borges MD #### CP, TSH, CDP #### [address] [place] [phone] Burr Bench Hand: Gage Barraza MD Lymphocytes (Bld) [#/Vol] 3.03 10*3/uL Normal 1.20-5.20 [facility] Comment on above: Performed By: #### V D25, FE, T4, GLYHGB, FT3, CORTI, LIPR, INSU #### [address] [address] Burr Bench Hand: Bala Borges MD #### CP, TSH, CDP #### [address] [place] [phone] Burr Bench Hand: Gage Barraza MD Lymphocytes/100 WBC (Bld) 31 % Normal 25-45 [facility] Comment on above: Performed By: #### V D25, FE, T4, GLYHGB, FT3, CORTI, LIPR, INSU #### [address] [address] Burr Bench Hand: Bala Borges MD #### CP, TSH, CDP #### [address] [place] [phone] Burr Bench Hand: Gage Barraza MD MCH (RBC) [Entitic mass] 28.0 pg Normal 25.2-33.5 [facility] Comment on above: Performed By: #### V D25, FE, T4, GLYHGB, FT3, CORTI, LIPR, INSU #### [address] [phone] Burr Bench Hand: Bala Borges MD #### CP, TSH, CDP #### [address] [place] [address] Burr Bench Hand: Gage Barraza MD MCHC (RBC) [Mass/Vol] 33.5 g/dL Normal 28.4-34.8 [facility] Comment on above: Performed By: #### V D25, FE, T4, GLYHGB, FT3, CORTI, LIPR, INSU #### [address] [address] Burr Bench Hand: Bala Borges MD #### CP, TSH, CDP #### [address] [place] [phone] Burr Bench Hand: Gage Barraza MD MCV (RBC) [Entitic vol] 83.6 fL Normal 82.6-102.9 [facility] Comment on above: Performed By: #### V D25, FE, T4, GLYHGB, FT3, CORTI, LIPR, INSU #### [address] [phone] Burr Bench Hand: Bala Borges MD #### CP, TSH, CDP #### [address] [place] [facility]83 Burr Bench Hand: Gage Barraza MD Monocytes (Bld) [#/Vol] 0.79 10*3/uL Normal 0.10-1.40 [facility] Comment on above: Performed By: #### V D25, FE, T4, GLYHGB, FT3, CORTI, LIPR, INSU #### [address] [address] Burr Bench Hand: Bala Borges MD #### CP, TSH, CDP #### [address] [place], [place] [phone] Burr Bench Hand: Gage Barraza MD Monocytes/100 WBC (Bld) 8 % Normal 2-8 [facility] Comment on above: Performed By: #### V D25, FE, T4, GLYHGB, FT3, CORTI, LIPR, INSU #### [address] [address] Burr Bench Hand: Bala Borges MD #### CP, TSH, CDP #### [address] [place] [phone] Burr Bench Hand: Gage Barraza MD Neutrophil (Seg) 59 % Normal 34-64 [facility] Comment on above: Performed By: #### V D25, FE, T4, GLYHGB, FT3, CORTI, LIPR, INSU #### [address] [address] Burr Bench Hand: Bala Borges MD #### CP, TSH, CDP #### [address] [place], [place] [phone] Burr Bench Hand: Gage Barraza MD NRBC Automated 0.0 per 100 WBC Normal 0.0 [facility] Comment on above: Performed By: #### V D25, FE, T4, GLYHGB, FT3, CORTI, LIPR, INSU #### [address] [address] Burr Bench Hand: Bala Borges MD #### CP, TSH, CDP #### [facility] [address] [place], [place] [address] Burr Bench Hand: Gage Barraza MD Platelet mean volume (Bld) [Entitic vol] 10.2 fL Normal 8.1-13.5 [facility] Comment on above: Performed By: #### V D25, FE, T4, GLYHGB, FT3, CORTI, LIPR, INSU #### [address] [address] Burr Bench Hand: Bala Borges MD #### CP, TSH, CDP #### [address] [place] [address] Burr Bench Hand: Gage Barraza MD Platelets (d) [#/Vol] 326 10*3/uL Normal 138-453 [facility] Comment on above: Performed By: #### V D25, FE, T4, GLYHGB, FT3, CORTI, LIPR, INSU #### [address] [address] Burr Bench Hand: Bala Borges MD #### CP, TSH, CDP #### [address] [place] [address] Burr Bench Hand: Gage Barraza MD RBC (d) [#/Vol] 4.64 10*6/uL Normal 3.95-5.11 [facility] Comment on above: Performed By: #### V D25, FE, T4, GLYHGB, FT3, CORTI, LIPR, INSU #### [address] [address] Burr Bench Hand: Bala Borges MD #### CP, TSH, CDP #### [address] [place] [address] Burr Bench Hand: Gage Barraza MD WBC (d) [#/Vol] 9.7 10*3/uL Normal 4.5-13.5 [facility] Comment on above: Performed By: #### V D25, FE, T4, GLYHGB, FT3, CORTI, LIPR, INSU #### [address] [address] Burr Bench Hand: Bala Borges MD #### CP, TSH, CDP #### [address] [place], [place] [phone] Burr Bench Hand: Gage Barraza MD Comp Metabolic Profon 2023 Albumin [Mass/Vol] 4.2 g/dL Normal 3.5-5.2 [facility] Comment on above: Performed By: #### V D25, FE, T4, GLYHGB, FT3, CORTI, LIPR, INSU #### [address] [address] Burr Bench Hand: Bala Borges MD #### CP, TSH, CDP #### [address] [place], [place] 5006583 Burr Bench Hand: Gage Barraza MD Albumin/Glob Ratio 1.4 Normal 1.0-2.5 [facility] Comment on above: Performed By: #### V D25, FE, T4, GLYHGB, FT3, CORTI, LIPR, INSU #### [address] [address] Burr Bench Hand: Bala Borges MD #### CP, TSH, CDP #### [address] [place], [place] 2642183 Burr Bench Hand: Gage Barraza MD Alkaline Phos 67 U/L Normal 35-104 [facility] Comment on above: Performed By: #### V D25, FE, T4, GLYHGB, FT3, CORTI, LIPR, INSU #### [address] [address] Burr Bench Hand: Bala Borges MD #### CP, TSH, CDP #### [address] [place], [place] [phone] Burr Bench Hand: Gage Barraza MD ALT [Catalytic activity/Vol] 69 U/L High 5-33 [facility] Comment on above: Performed By: #### V D25, FE, T4, GLYHGB, FT3, CORTI, LIPR, INSU #### [address] [address] Burr Bench Hand: Bala Borges MD #### CP, TSH, CDP #### [address] [place], [place] 075[address]83 Burr Bench Hand: Gage Barraza MD Anion gap [Moles/Vol] 9 mmol/L Normal 9-17 [facility] Comment on above: Performed By: #### V D25, FE, T4, GLYHGB, FT3, CORTI, LIPR, INSU #### [address] [address] Burr Bench Hand: Bala Borges MD #### CP, TSH, CDP #### [address] [place], [place] [phone] Burr Bench Hand: Gage Barraza MD AST [Catalytic activity/Vol] 75 U/L High <32 [facility] Comment on above: Performed By: #### V D25, FE, T4, GLYHGB, FT3, CORTI, LIPR, INSU #### [address] [address] Burr Bench Hand: Bala Borges MD #### CP, TSH, CDP #### [address] [place], [place] 3750283 Burr Bench Hand: Gage Barraza MD Bilirubin [Mass/Vol] 0.4 mg/dL Normal 0.3-1.2 [facility] Comment on above: Performed By: #### V D25, FE, T4, GLYHGB, FT3, CORTI, LIPR, INSU #### [address] [address] Burr Bench Hand: Bala Borges MD #### CP, TSH, CDP #### [address] [place], [place] [phone] Burr Bench Hand: Gage Barraza MD BUN/CRE Ratio 18 Normal 9-20 [facility] Comment on above: Performed By: #### V D25, FE, T4, GLYHGB, FT3, CORTI, LIPR, INSU #### [address] [phone] Burr Bench Hand: Bala Borges MD #### CP, TSH, CDP #### [address] [place] [address] Burr Bench Hand: Gage Barraza MD Calcium [Mass/Vol] 9.0 mg/dL Normal 8.6-10.4 [facility] Comment on above: Performed By: #### V D25, FE, T4, GLYHGB, FT3, CORTI, LIPR, INSU #### [address] [address] Burr Bench Hand: Bala Borges MD #### CP, TSH, CDP #### [address] [place] [address] Burr Bench Hand: Gage Barraza MD Chloride [Moles/Vol] 102 mmol/L Normal 98-107 [facility] Comment on above: Performed By: #### V D25, FE, T4, GLYHGB, FT3, CORTI, LIPR, INSU #### [address] [address] Burr Bench Hand: Bala Borges MD #### CP, TSH, CDP #### [address] [place] [address] Burr Bench Hand: Gage Barraza MD CO2 [Moles/Vol] 24 mmol/L Normal 20-31 [facility] Comment on above: Performed By: #### V D25, FE, T4, GLYHGB, FT3, CORTI, LIPR, INSU #### [facility] [address] [place] [address] Burr Bench Hand: Bala Borges MD #### CP, TSH, CDP #### [facility] [address] [place] [address] Dr. [place], [place] 1593483 Burr Bench Hand: Gage Barraza MD Creatinine [Mass/Vol] 0.5 mg/dL Normal 0.5-0.9 [facility] Comment on above: Performed By: #### V D25, FE, T4, GLYHGB, FT3, CORTI, LIPR, INSU #### [address] [place] [address] Burr Bench Hand: Bala Borges MD #### CP, TSH, CDP #### [address] [place] [address] Burr Bench Hand: Gage Barraza MD GFR/1.73 sq M.predicted among non-blacks MDRD (S/P/Bld) [Vol rate/Area] mL/min/{1.73_m2} Normal >60 [facility] Comment on above: Result Comment: These [...] T4, GLYHGB, FT3, CORTI, LIPR, INSU #### [facility] [address] [place], [place] [phone] Burr Bench Hand: Bala Borges MD #### CP, TSH, CDP #### [facility] [address] [place] [address] [place] [address] Burr Bench Hand: Gage Barraza MD Glucose [Mass/Vol] 84 mg/dL Normal 70-99 [facility] Comment on above: Performed By: #### V D25, FE, T4, GLYHGB, FT3, CORTI, LIPR, INSU #### [address] [address] Burr Bench Hand: Bala Borges MD #### CP, TSH, CDP #### [address] [place], [place] 5555983 Burr Bench Hand: Gage Barraza MD Potassium [Moles/Vol] 4.1 mmol/L Normal 3.7-5.3 [facility] Comment on above: Performed By: #### V D25, FE, T4, GLYHGB, FT3, CORTI, LIPR, INSU #### [address] [address] Burr Bench Hand: Bala Borges MD #### CP, TSH, CDP #### [address] [place], [place] 1881583 Burr Bench Hand: Gage Barraza MD Protein [Mass/Vol] 7.2 g/dL Normal 6.4-8.3 [facility] Comment on above: Performed By: #### V D25, FE, T4, GLYHGB, FT3, CORTI, LIPR, INSU #### [address] [address] Burr Bench Hand: Bala Borges MD #### CP, TSH, CDP #### [address] [place], [place] 9509283 Burr Bench Hand: Gage Barraza MD Sodium [Moles/Vol] 135 mmol/L Normal 135-144 [facility] Comment on above: Performed By: #### V D25, FE, T4, GLYHGB, FT3, CORTI, LIPR, INSU #### [address] [address] Burr Bench Hand: Bala Borges MD #### CP, TSH, CDP #### [facility] [address] [place] [address] [place] [address] Burr Bench Hand: Gage Barraza MD Urea nitrogen [Mass/Vol] 9 mg/dL Normal 6-20 [facility] Comment on above: Performed By: #### V D25, FE, T4, GLYHGB, FT3, CORTI, LIPR, INSU #### [address] [address] Burr Bench Hand: Bala Borges MD #### CP, TSH, CDP #### [address] [place] [address] Burr Bench Hand: Gage Barraza MD Thyroid Stim. Horm.on 2023 Thyroid Stim. Horm. 2.74 uIU/mL Normal 0.30-5.00 [facility] Comment on above: Performed By: #### V D25, FE, T4, GLYHGB, FT3, CORTI, LIPR, INSU #### [address] [address] Burr Bench Hand: Bala Borges MD #### CP, TSH, CDP #### [address] [place] [address] Burr Bench Hand: Gage Barraza MD CBCon 01-09-2023 Erythrocyte distribution width (RBC) [Ratio] 13.4 % Normal 11.8-14.4 [facility] Comment on above: Performed By: #### V D25 #### [address] [address] Burr Bench Hand: Bala Borges MD #### CP, CBC #### [address] [place] [address] Burr Bench Hand: Gage Barraza MD Hematocrit (Bld) [Volume fraction] 39.6 % Normal 36.3-47.1 [facility] Comment on above: Performed By: #### V D25 #### [address] [place] [address] Burr Bench Hand: Bala Borges MD #### CP, CBC #### [address] [place] [address] Burr Bench Hand: Gage Barraza MD Hemoglobin (Bld) [Mass/Vol] 13.4 g/dL Normal 11.9-15.1 [facility] Comment on above: Performed By: #### V D25 #### [address] [id number] [employer]: Bala Borges MD #### CP, CBC #### [address] [place] [address] Burr Bench Hand: Gage Barraza MD MCH (RBC) [Entitic mass] 27.9 pg Normal 25.2-33.5 [facility] Comment on above: Performed By: #### V D25 #### [address] [address] Burr Bench Hand: Bala Borges MD #### CP, CBC #### [address] [place] [address] Burr Bench Hand: Gage Barraza MD MCHC (RBC) [Mass/Vol] 33.8 g/dL Normal 28.4-34.8 [facility] Comment on above: Performed By: #### V D25 #### [address] [address] Burr Bench Hand: Bala Borges MD #### CP, CBC #### [address] [place] [address] Burr Bench Hand: Gage Barraza MD MCV (RBC) [Entitic vol] 82.5 fL Low 82.6-102.9 [facility] [facility] Comment on above: Performed By: #### V D25 #### [address] [address] Burr Bench Hand: Bala Borges MD #### CP, CBC #### [address] [place], [place] [phone] Burr Bench Hand: Gage Barraza MD NRBC Automated 0.0 per 100 WBC Normal 0.0 [facility] Comment on above: Performed By: #### V D25 #### [address] [address] Burr Bench Hand: Bala Borges MD #### CP, CBC #### [address] [place] [phone] Burr Bench Hand: Gage Barraza MD Platelet mean volume (Bld) [Entitic vol] 10.4 fL Normal 8.1-13.5 [facility] Comment on above: Performed By: #### V D25 #### [address] [address] Burr Bench Hand: Bala Borges MD #### CP, CBC #### [address] [place], [place] [phone] Burr Bench Hand: Gage Barraza MD Platelets (Bld) [#/Vol] 333 10*3/uL Normal 138-453 [facility] Comment on above: Performed By: #### V D25 #### [address] [address] Burr Bench Hand: Bala Borges MD #### CP, CBC #### [address] [place], [place] [phone] Burr Bench Hand: Gage Barraza MD RBC (Bld) [#/Vol] 4.80 10*6/uL Normal 3.95-5.11 [facility] Comment on above: Performed By: #### V D25 #### [address] [address] Burr Bench Hand: Bala Borges MD #### CP, CBC #### [facility] [address] [place] [address] Burr Bench Hand: Gage Barraza MD WBC (Bld) [#/Vol] 10.7 10*3/uL Normal 4.5-13.5 [facility] Comment on above: Performed By: #### V D25 #### [address] [address] Burr Bench Hand: Bala Borges MD #### CP, CBC #### [address] [place] [address] Burr Bench Hand: Gage Barraza MD Comp Metabolic Profon 2022 Albumin [Mass/Vol] 4.8 g/dL Normal 3.5-5.2 [facility] Comment on above: Performed By: #### V D25 #### [address] [address] Burr Bench Hand: Bala Borges MD #### CP, CBC #### [address] [place] [address] Burr Bench Hand: Gage Barraza MD Albumin/Glob Ratio 1.5 Normal 1.0-2.5 [facility] Comment on above: Performed By: #### V D25 #### [address] [address] Burr Bench Hand: Bala Borges MD #### CP, CBC #### [facility] [address] [place] [address] Burr Bench Hand: Gage Barraza MD Alkaline Phos 72 U/L Normal 35-104 [facility] Comment on above: Performed By: #### V D25 #### [address] [address] Burr Bench Hand: Bala Borges MD #### CP, CBC #### [facility] [address] [place], [place] [phone] Burr Bench Hand: Gage Barraza MD ALT [Catalytic activity/Vol] 30 U/L Normal 5-33 [facility] Comment on above: Performed By: #### V D25 #### [address] [address] Burr Bench Hand: Bala Borges MD #### CP, CBC #### [address] [place], [place] 8594383 Burr Bench Hand: Gage Barraza MD Anion gap [Moles/Vol] 13 mmol/L Normal 9-17 [facility] Comment on above: Performed By: #### V D25 #### [address] [address] Burr Bench Hand: Bala Borges MD #### CP, CBC #### [address] [place], [place] 8427283 Burr Bench Hand: Gage Barraza MD AST [Catalytic activity/Vol] 37 U/L High <32 [facility] Comment on above: Performed By: #### V D25 #### [address] [address] Burr Bench Hand: Bala Borges MD #### CP, CBC #### [address] [place], [place] 5617883 Burr Bench Hand: Gage Barraza MD Bilirubin [Mass/Vol] 0.4 mg/dL Normal 0.3-1.2 [facility] Comment on above: Performed By: #### V D25 #### [address] [address] Burr Bench Hand: Bala Borges MD #### CP, CBC #### [address] [place], [place] 1565383 Burr Bench Hand: Gage Barraza MD BUN/CRE Ratio 17 Normal 9-20 [facility] Comment on above: Performed By: #### V D25 #### [facility] [address] [place] [address] Burr Bench Hand: Bala Borges MD #### CP, CBC #### [facility] [address] [place], [place] [phone] Burr Bench Hand: Gage Barraza MD Calcium [Mass/Vol] 9.7 mg/dL Normal 8.6-10.4 [facility] Comment on above: Performed By: #### V D25 #### [address] [address] Burr Bench Hand: Bala Borges MD #### CP, CBC #### [address] [place], [place] 612[address]83 Burr Bench Hand: Gage Barraza MD Chloride [Moles/Vol] 104 mmol/L Normal 98-107 [facility] Comment on above: Performed By: #### V D25 #### [address] [address] Burr Bench Hand: Bala Borges MD #### CP, CBC #### [address] [place], [place] 2179483 Burr Bench Hand: Gage Barraza MD CO2 [Moles/Vol] 24 mmol/L Normal 20-31 [facility] Comment on above: Performed By: #### V D25 #### [address] [address] Burr Bench Hand: Bala Borges MD #### CP, CBC #### [facility] [address] [place], [place] [phone] Burr Bench Hand: Gage Barraza MD Creatinine [Mass/Vol] 0.6 mg/dL Normal 0.5-0.9 [facility] Comment on above: Performed By: #### V D25 #### [address] [address] Burr Bench Hand: Bala Borges MD #### CP, CBC #### [facility] [address] [place] [address] [place] [address] Burr Bench Hand: Gage Barraza MD GFR/1.73 sq M.predicted among non-blacks MDRD (S/P/Bld) [Vol rate/Area] mL/min/{1.73_m2} Normal >60 [facility] Comment on above: Result Comment: These [...] secretion. Performed By: #### V D25 #### [address] [address] Burr Bench Hand: Bala Borges MD #### CP, CBC #### [address] [place] [address] Burr Bench Hand: Gage Barraza MD Glucose [Mass/Vol] 98 mg/dL Normal 70-99 [facility] Comment on above: Performed By: #### V D25 #### [address] [address] Burr Bench Hand: Bala Borges MD #### CP, CBC #### [address] [place] [address] Burr Bench Hand: Gage Barraza MD Potassium [Moles/Vol] 4.0 mmol/L Normal 3.7-5.3 [facility] Comment on above: Performed By: #### V D25 #### [address] [place] [address] Burr Bench Hand: Bala Borges MD #### CP, CBC #### [facility] [address] [place] [address] Dr. [place], [place] [phone] Burr Bench Hand: Gage Barraza MD Protein [Mass/Vol] 8.0 g/dL Normal 6.4-8.3 [facility] Comment on above: Performed By: #### V D25 #### [address] [address] Burr Bench Hand: Bala Borges MD #### CP, CBC #### [facility] [address] [place] [address] [place] [address] Burr Bench Hand: Gage Barraza MD Sodium [Moles/Vol] 141 mmol/L Normal 135-144 [facility] Comment on above: Performed By: #### V D25 #### [address] [address] Burr Bench Hand: Bala Borges MD #### CP, CBC #### [facility] [address] [place] [address] [place] [address] Burr Bench Hand: Gage Barraza MD Urea nitrogen [Mass/Vol] 10 mg/dL Normal 6-20 [facility] Comment on above: Performed By: #### V D25 #### [address] [address] Burr Bench Hand: Bala Borges MD #### CP, CBC #### [facility] [address] [place] [address] [place] [address] Burr Bench Hand: Gage Barraza MD Vitamin D 25 OHon 01-09-2023 Vitamin D 25 OH 25.6 ng/mL Low 30.0-100.0 [facility] Comment on above: Result Comment: Reference Range: Vitamin D status Range Deficiency <20 ng/mL Mild Deficiency 20-30 ng/mL Sufficiency 30-100 ng/mL Toxicity >100 ng/mL Performed By: #### V D25 #### [facility] [address] [place], [place] [id number] Burr Bench Hand: Bala Borges MD #### CP, KADE #### [facility] [address] [place], [place] [phone] Burr Bench Hand: Gage Barraza MD Audiology Office/Clinic Note on 01-03-2023 Audiology Office/Clinic Note HEARING AID Dispense BACKGROUND INFORMATION: Name: Blanka Farias Age: 22 Sex: female Previous Hearing Aid Use: no Associated ENT: Huff Etiology of HL: history of chronic middle ear issues DEVICES FITTING Binaural MAKE Phonak MODEL Audeo L30-RL SERIAL # R: [id number] L: [id number] WARRANTY 03/10/28 COLOR black REC. LENGTH 1M COUPLING cshell: R - [id number] ([id number]) L - [id number] ([id number]) remake: 03/12/23 BATTERY rechargeable FITTING Real ear [...] by Jackie Butler 01/03/23 10:12 EDT Normal [facility] Audiology Office/Clinic Note on 11-29-2022 Audiology Office/Clinic [...] by Jackie Butler 11/29/22 12:36 EDT Normal [facility] XR ANKLE LEFT (MIN 3 VIEWS)o n [...] Nirmal Haskins DO 09/12/22 Final result Normal [facility] XR FOOT LEFT (MIN 3 VIEWS)on [...] Nirmal Haskins DO 09/12/22 Final result Normal [facility] Otolaryngology Office/Clinic Noteon 09-04-2022 Otolaryngology Office/Clinic Note Chief Complaint Patient states I am here to have my hearing and ears checked History of Present Illness Blanak is a very pleasant 22-year-old female who [...] data Procedure/Surgical History Ankle surgery x 3 [facility] Medications Nortrel oral tablet Plus Low Iron oral tablet, 1 tabs, Oral, Daily Allergies Topamax (Hives) Grass (unknown) smoke (unknown) Social History Alcohol Never Sexual Sexually active: Yes. Substance Abuse Denies All Tobacco Never (less than 100 in lifetime) Use:. Electronically signed by Larry Huff MD, Chi 09/04/22 13:59 EDT Normal [facility] Cult,Urineon 08-30-2022 Cult,Urine Specimen Description .CLEAN CATCH URINE Culture NO SIGNIFICANT GROWTH Report Status FINAL 08/30/2022 Normal [facility] Comment on above: Performed By: #### U RC ####[place] [address] [facility], [place] 524[address]8 Lab Director: Bala Borges, [address] , [place] [phone] Lab Director: Gage Barraza MD Urinalysis w/ Microon 2022 Bacteria 1+ Abnormal NONE [facility] Comment on above: Performed By: #### U AMIC ####[address] [place] [address] Lab Director: Gage Barraza MD Bilirubin, SemiQt,Ur Negative Normal NEG [facility] Comment on above: Performed By: #### U AMIC ####[address] , [place] 2395983 Lab Director: Gage Barraza MD Blood, Urine Negative Normal NEG [facility] Comment on above: Performed By: #### U AMIC ####[facility] [place] [address] , [place] [address]1383 Lab Director: Gage Barraza MD Clarity (U) SLIGHTLY CLOUDY Abnormal CLEAR [facility] Comment on above: Performed By: #### U AMIC ####[facility] , [place] 64[address] Lab Director: Gage Barraza MD Color (U) Yellow Normal YEL [facility] Comment on above: Performed By: #### U AMIC ####[address] , [place] 7194[address] Lab Director: Gage Barraza MD Epithelial cells LM Ql (Urine sed) 10 TO 20 Normal 0-25 [facility] Comment on above: Performed By: #### U AMIC ####[address] , [place] 6008983 Lab Director: Gage Barraza MD Glucose Ql (U) Negative Normal NEG [facility] Comment on above: Performed By: #### U AMIC ####[address] , [place] 2989783 Lab Director: Gage Barraza MD Ketones Ql (U) Negative Normal NEG [facility] Comment on above: Performed By: #### U AMIC ####[address] , [place] 9400483 Lab Director: Gage Barraza MD Leukocyte esterase Test strip Ql (U) MODERATE Abnormal NEG [facility] Comment on above: Performed By: #### U AMIC ####[address] , [place] 2348383 lab Director: Gage Barraza MD Nitrite,Ur Negative Normal NEG [facility] Comment on above: Performed By: #### U AMIC ####[address] , [place] 4558783 Lab Director: Gage Barraza MD PH,Ur 6.0 Normal 5.0-9.0 [facility] Comment on above: Performed By: #### U AMIC ####[address] , [place] 1422[address] Lab Director: Gage Barraza MD Protein Ql (U) Negative Normal NEG [facility] Comment on above: Performed By: #### U AMIC ####[facility] , [place] 04[address]483 Lab Director: Gage Barraza MD Spec. Vidor,Ur <1.005 Low 1.010-1.020 [facility] Comment on above: Performed By: #### U AMIC ####[facility] [place] , [place] 3204[address] Lab Director: Gage Barraza MD Urine RBC's 0 TO 2 Normal 0-2 [facility] Comment on above: Performed By: #### U AMIC ####[facility] [place] , [place] [address]83 lab Director: Gage Barraza MD Urine WBC's 20 TO 50 Normal 0-5 [facility] Comment on above: Performed By: #### U AMIC ####[address] , [place] 1470483 [facility] Director: Gage Barraza MD Urobilinogen,Ur Normal Normal NORM [facility] Comment on above: Performed By: #### U AMIC ####[address] , [place] [address]83 lab Director: Gage Barraza MD Urinalysis with Microscopico n 08-29-2022 Bacteria, UA 1+ Abnormal None [facility] Bilirubin Urine Negative NEGATIVE [facility] Color, UA Yellow Yellow [facility] Epithelial Cells UA 10 TO 20 [facility] Glucose Auto test strip (U) [Mass/Vol] Negative NEGATIVE [facility] Interpretation and review of laboratory results Abnormal [facility] Ketones (U) [Mass/Vol] Negative NEGATIVE [facility] Leukocyte esterase Auto test strip Ql (U) MODERATE Abnormal NEGATIVE [facility] Nitrite Auto test strip Ql (U) Negative NEGATIVE [facility] Protein (U) [Mass/Vol] 6.0 mg/dL 5.0 - 9.0 [facility] Protein (U) [Mass/Vol] Negative NEGATIVE [facility] RBC clumps Auto (Urine sed) [#/Area] 0 TO 2 [facility] Specific Vidor, UA Low 1.010 - 1.020 [facility] Turbidity UA SLIGHTLY CLOUDY Abnormal Clear [facility] Urine Hgb Negative NEGATIVE [facility] Urobilinogen, Urine Normal Normal [facility] WBC, UA 20 TO 50 [facility] XR WRIST LEFT (MIN 3 VIEWS)o n 06-20-2022 Normal wrist radiographs [facility] EXAMINATION: XRAY VIEWS OF THE LEFT WRIST 06/20/2022 3:55 pm COMPARISON: None. HISTORY: ORDERING SYSTEM PROVIDED HISTORY: Pain FINDINGS: Carpal bones and alignment are maintained. Distal radius and ulna are intact. No acute fracture or dislocation. [facility] Nirmal Haskins, DO - 06/20/2022 EXAMINATION: XRAY VIEWS OF THE LEFT WRIST 06/20/2022 3:55 pm COMPARISON: None. HISTORY: ORDERING SYSTEM PROVIDED HISTORY: Pain FINDINGS: Carpal bones and alignment are maintained. Distal radius and ulna are intact. No acute fracture or dislocation. IMPRESSION: Normal wrist radiographs [facility] Work Phone: Radiology Study observation (narrative) [facility] Work Phone: XR WRIST LEFT (MIN 3 VIEWS)O rdered By: Nirmal Haskins on 06-20-2022 [facility] Work Phone: Otolaryngology Office/Clinic Noteon 06-14-2022 Otolaryngology [...] data Procedure/Surgical History Ankle surgery x 3 [facility] Medications Nortrel oral tablet Plus Low Iron oral tablet, 1 tabs, Oral, Daily Allergies Topamax (Hives) Grass (unknown) smoke (unknown) Social History Alcohol Never Sexual Sexually active: Yes. Substance Abuse Denies All Tobacco Never (less than 100 in lifetime) Use:. Electronically signed by ____Larry Glynn MD, Chi 06/14/22 13:02 EST Normal [facility] C Earon 05-20-2022 C Ear -- - [...] <=1 V Vancomycin S 1 V Normal [facility] Comment on above: Performed By: #### C JOSE #### [facility] (DEFAULT) [address] [place] [address] [facility] [address] [place] [address] Otolaryngology Office/Clinic Noteon 05-17-2022 Otolaryngology Office/Clinic Note [...] mL, 3 Refill(s), 07/12/22 15:35:00 EDT, Pharmacy: [facility]/pharmacy #[id number] Medical Decision Making Chronic conditions NOT treated [...] data Procedure/Surgical History Ankle surgery x 3 [facility] Medications cefdinir 300 mg oral capsule, 300 mg= 1 caps, Oral, BID Ciprodex 0.3%-0.1% otic suspension, 4 drops, Ear-Both, BID, 3 refills Plus Low Iron oral tablet, 1 tabs, Oral, Daily Allergies Topamax (Hives) Gras (more content not included)... Normal [facility] CNOVon 03-09-2022 CN Office Visit (LOORRM ) BLANKA FARIAS ([id number]) 4 F Date Time Provider Department 03/09/22 [...] mother Previous LEFT ANKLE surgery Dr. Jonny Reen, DPM [place] arthroscopic surgery ? Later revised by Dr. 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 Additional Modifying factor: What makes better / [...] PROT, URICACID, HBA1C, VITD25 in the last 13110 hours. X-ray reviewed from RIGHT ANKLE consistent [...] Talar Dome (more content not included)... Normal [facility] XR WRIST RIGHT (MIN 3 VIEWS) on 03-09-2022 Normal wrist radiographs [facility] EXAMINATION: XRAY VIEWS OF THE RIGHT WRIST 03/07/2022 2:33 pm COMPARISON: None. HISTORY: ORDERING SYSTEM PROVIDED HISTORY: Right wrist pain FINDINGS: Carpal bones and alignment are maintained. Distal radius and ulna are intact. No acute fracture or dislocation. [facility] Nirmal Haskins DO - 03/09/2022 EXAMINATION: XRAY VIEWS OF THE RIGHT WRIST 03/07/2022 2:33 pm COMPARISON: None. HISTORY: ORDERING SYSTEM PROVIDED HISTORY: Right wrist pain FINDINGS: Carpal bones and alignment are maintained. Distal radius and ulna are intact. No acute fracture or dislocation. IMPRESSION: Normal wrist radiographs [facility] Work Phone: XR WRIST RIGHT (MIN 3 VIEWS) Ordered By: Nirmal Haskins on 03-09-2022 [facility] Work Phone: XR WRIST RIGHT (MIN 3 VIEWS) on 03-07-2022 Radiology Study observation (narrative) [facility] Work Phone: Comprehensive Metabolic Pane crystal 02-19-2022 Albumin [Mass/Vol] 4.9 g/dL 3.5 - 5.2 g/dL [facility] Albumin/Globulin [Mass ratio] 1.5 {ratio} 1.0 - 2.5 [facility] ALP (Bld) [Catalytic activity/Vol] 64 U/L 35 - 104 U/L [facility] ALT [Catalytic activity/Vol] 16 U/L 5 - 33 U/L [facility] Anion gap [Moles/Vol] 13 mmol/L 9 - 17 mmol/L [facility] AST [Catalytic activity/Vol] 27 U/L NINF - 32 U/L [facility] Bilirubin [Mass/Vol] 0.3 mg/dL 0.3 - 1 .2 mg/dL [facility] Calcium [Mass/Vol] 9.6 mg/dL 8.6 - 10. 4 mg/dL [facility] Chloride [Moles/Vol] 103 mmol/L 98 - 10 7 mmol/L [facility] CO2 [Moles/Vol] 25 mmol/L 20 - 31 mmol/L [facility] Creatinine [Mass/Vol] 0.59 mg/dL 0.50 - 0.90 mg/dL [facility] GFR/1.73 sq M.predicted MDRD (S/P/Bld) [Vol rate/Area] - PINF [facility] Comment on above: Effective Jan 29, 2022 [...] [Mass/Vol] 75 mg/dL 70 - 99 mg/dL [facility] Interpretation and review of laboratory results Abnormal [facility] Potassium [Moles/Vol] 3.8 mmol/L 3.7 - 5.3 mmol/L [facility] Protein [Mass/Vol] 8.1 g/dL 6.4 - 8.3 g/dL [facility] Sodium [Moles/Vol] 141 mmol/L 135 - 144 mmol/L [facility] Urea nitrogen (BldV) [Mass/Vol] 15 mg/dL 6 - 20 mg/dL [facility] Urea nitrogen/Creatinine (Bld) [Mass ratio] 25 High 9 - 20 [facility] Urinalysis with Microscopico n 02-19-2022 Bacteria, UA 1+ Abnormal None [facility] Bilirubin Urine Negative NEGATIVE [facility] Color, UA Yellow Yellow [facility] Epithelial Cells UA 0 TO 2 [facility] Glucose, Ur TRACE Abnormal NEGATIVE [facility] Interpretation and review of laboratory results Abnormal [facility] Ketones Ql (U) Negative NEGATIVE [facility] Leukocyte esterase Test strip Ql (U) TRACE Abnormal NEGATIVE [facility] Nitrite, Urine Negative NEGATIVE [facility] pH, UA 6.0 5.0 - 9.0 [facility] Protein, UA TRACE Abnormal NEGATIVE [facility] RBC, UA 50 TO 100 [facility] Specific Vidor, UA 1.020 1.010 - 1.020 [facility] Turbidity UA SLIGHTLY CLOUDY Abnormal Clear [facility] Urine Hgb 3+ Abnormal NEGATIVE [facility] Urobilinogen, Urine Normal Normal [facility] WBC, UA 5 TO 10 [facility] CNOVon 02-07-2022 CNOV Office Visit (LOORRM ) BLANKA FARIAS ([id number]) 4 F Date Time Provider Department 02/07/22 11:00 AM RK RENDON During your visit today, we recorded the following information about you: Rk Rendon DPM 02/07/2022 2:48 PM Signed [facility] Department of Orthopedics [facility] Orthopedic Surgery Name: Blanka Farias [...] Radiographs: Right ankle radiographs from 01/12/2022 from [facility] reveal unusual shape to the dorsal talar dome with almost some lateral tilt A right ankle MRI performed on 01/18/2022 from [facility]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 [...] Rk Rendon DPM Referring Provider: LOUISE MCCULLOUGH [[id number]] Allergies As of Date: 02/07/2022 Noted Allergy Reaction [id number] 03/11/2013 14 - Other: See Comments Comments: [...] Status:Closed by RK RENDON on 02/07/22 Normal [facility] MRI ANKLE RT WO CONon 2021 MRI [...] GAGE JACK Date: 2022-01-20 17:17 Normal [facility] CBC AUTO DIFFon 01-12-2022 BASO # 0.1 103/ul Normal 0.0-0.1 [facility] Comment on above: Performed By: #### U MICRO, UARMICR #### [facility] [address] [place] [address] Dr. Bertha Duncan Basophils/100 WBC (Bld) 0.5 % Normal 0.2-2.0 [facility] Comment on above: Performed By: #### U MICRO, UARMICR #### [facility] [address] [place] [address] Dr. Bertha Duncan EO # 0.3 103/ul Normal 0.0-0.7 [facility] Comment on above: Performed By: #### U MICRO, UARMICR #### [facility] [address] [place] [address] Dr. Bertha Duncan Eosinophils/100 WBC (Bld) 2.1 % Normal 0.9-7.0 [facility] Comment on above: Performed By: #### U MICRO, UARMICR #### [facility] [address] [place] [address] Dr. Bertha Duncan Erythrocyte distribution width (RBC) [Ratio] 13.8 % Normal 11.0-15.0 [facility] Comment on above: Performed By: #### U MICRO, UARMICR #### [facility] [address] [place] [address] Dr. Bertha Duncan Hematocrit (Bld) [Volume fraction] 39.1 % Normal 36.0-48.0 [facility] Comment on above: Performed By: #### U MICRO, UARMICR #### [facility] [address] [place] [address] Dr. Bertha Duncan Hemoglobin (Bld) [Mass/Vol] 13.1 g/dL Normal 12.0-16.0 [facility] Comment on above: Performed By: #### U MICRO, UARMICR #### [facility] [address] [place] [address] Dr. Bertha Duncan IG # 0.05 10e3/ul Critically high 0.00-0.03 [facility] Comment on above: Performed By: #### U MICRO, UARMICR #### [facility] [address] [address] [address] Bertha Duncan IG % 0.4 % Normal 0.0-0.5 [facility] Comment on above: Performed By: #### U MICRO, UARMICR #### [facility] [address] [place] [address] Dr. Bertha Duncan LYMPH # 3.1 103/ul Normal 1.2-3.8 [facility] Comment on above: Performed By: #### U MICRO, UARMICR #### [facility] [address] [place] [address] Dr. Bertha Duncan Lymphocytes/100 WBC (Bld) 23.9 % Normal 20.5-60.0 [facility] Comment on above: Performed By: #### U MICRO, UARMICR #### [facility] [address] [place] [address] Dr. Bertha Duncan MANUAL DIFF REQ NO Normal [facility] Comment on above: Performed By: #### U MICRO, UARMICR #### [facility] [address] [place] [address] Dr. Bertha Duncan MCH (RBC) [Entitic mass] 27.1 pg Normal 26.7-34.0 [facility] Comment on above: Performed By: #### U MICRO, UARMICR #### [facility] [address] [place] [address] Dr. Bertha Duncan MCHC (RBC) [Mass/Vol] 33.5 g/dL Normal 29.9-35.2 [facility] Comment on above: Performed By: #### U MICRO, UARMICR #### [facility] [address] [address] [address] Bertha Duncan MCV (RBC) [Entitic vol] 81.0 fL Normal 81.0-99.0 [facility] Comment on above: Performed By: #### U MICRO, UARMICR #### [facility] [address] [address] [address] Bertha Duncan MONO # 0.8 103/ul Normal 0.3-0.8 [facility] Comment on above: Performed By: #### U MICRO, UARMICR #### [facility] [address] [place] [address] Dr. Bertha Duncan Monocytes/100 WBC (Bld) 5.8 % Normal 1.7-12.0 [facility] Comment on above: Performed By: #### U MICRO, UARMICR #### [facility] [address] [place] [address] Dr. Bertha Duncan NEUT # 8.7 103/ul Critically high 1.4-6.5 [facility] Comment on above: Performed By: #### U MICRO, UARMICR #### [facility] [address] [place] [address] Dr. Bertha Duncan Neutrophils/100 WBC (Bld) 67.3 % Normal 43.0-75.0 [facility] Comment on above: Performed By: #### U MICRO, UARMICR #### [facility] [address] [place] [address] Dr. Bertha Duncan Platelet mean volume (Bld) [Entitic vol] 9.8 fL Normal 9.5-13.5 [facility] Comment on above: Performed By: #### U MICRO, UARMICR #### [facility] [address] [place] [address] Dr. Bertha Duncan PLT 369 103/ul Normal 150-450 [facility] Comment on above: Performed By: #### U MICRO, UARMICR #### [facility] [address] [place] [address] Dr. Bertha Duncan RBC 4.83 106/ul Normal 4.20-5.40 [facility] Comment on above: Performed By: #### U MICRO, UARMICR #### [facility] [address] [place] [address] Dr. Bertha Duncan WBC 12.9 103/ul Critically high 4.0-11.0 [facility] Comment on above: Performed By: #### U MICRO, UARMICR #### [facility] [address] [place] [address] Dr. Bertha Duncan CULTURE URINEon 01-12-2022 CULTURE URINE Culture Observations : HEAVY GROWTH OF MIXED GENITAL BEAU. NO POTENTIAL PATHOGENS SEEN. Normal [facility] Comment on above: Performed By: #### U MICRO, UARMICR #### [facility] [address] [place] [address] Dr. Bertha Duncan PROF 14(COMP METB)on 022 Albumin [Mass/Vol] 4.1 g/dL Normal 3.4-5.0 [facility] Comment on above: Performed By: #### C MP #### [facility] [address] [place] [address] Dr. Bertha Duncan Albumin/Globulin [Mass ratio] 1.0 {ratio} Normal [facility] Comment on above: Performed By: #### C MP #### [facility] [address] [place] [address] Dr. Bertha Duncan ALP [Catalytic activity/Vol] 57 U/L Normal 46-116 [facility] Comment on above: Performed By: #### C MP #### [facility] [address] [place] [address] Dr. Bertha Duncan ALT [Catalytic activity/Vol] 19 U/L Normal 14-59 [facility] Comment on above: Performed By: #### C MP #### [facility] [address] [place] [address] Dr. Bertha Duncan Anion gap [Moles/Vol] 12.5 mmol/L Normal [facility] Comment on above: Performed By: #### C MP #### [facility] [address] [place] [address] Dr. Bertha Duncan AST [Catalytic activity/Vol] 23 U/L Normal 15-37 [facility] Comment on above: Performed By: #### C MP #### [facility] [address] [address] [address] Bertha Duncan Bilirubin [Mass/Vol] 0.2 mg/dL Normal 0.2-1.0 [facility] Comment on above: Performed By: #### C MP #### [facility] [address] [address] [address] Bertha Duncan Calcium [Mass/Vol] 9.3 mg/dL Normal 8.5-10.1 [facility] Comment on above: Performed By: #### C MP #### [facility] [address] [place] [address] Dr. Bertha Duncan Chloride [Moles/Vol] 104 mmol/L Normal 98-107 [facility] Comment on above: Performed By: #### C MP #### [facility] [address] [address] [address] Bertha Duncan CO2 [Moles/Vol] 23.2 mmol/L Normal 21.0-32.0 [facility] Comment on above: Performed By: #### C MP #### [facility] [address] [place] [address] Dr. Bertha Duncan Creatinine [Mass/Vol] 0.62 mg/dL Normal 0.55-1.02 [facility] Comment on above: Performed By: #### C MP #### [facility] [address] [address] [address] Bertha Duncan EGFR-AF MALDIVIAN >60 Normal >=60 [facility] Comment on above: Performed By: #### C MP #### [facility] [address] [address] [address] Bertha Duncan EGFR-NON AF MALDIVIAN >60 Normal >=60 [facility] Comment on above: Performed By: #### C MP #### [facility] [address] [place] [address] Dr. Bertha Duncan Globulin (S) [Mass/Vol] 4.0 g/dL Normal [facility] Comment on above: Performed By: #### C MP #### [facility] [address] [address] [address] Bertha Duncan Glucose [Mass/Vol] 83 mg/dL Normal 74-106 [facility] Comment on above: Performed By: #### C MP #### [facility] [address] [address] [address] Bertha Duncan Potassium [Moles/Vol] 3.7 mmol/L Normal 3.5-5.1 [facility] Comment on above: Performed By: #### C MP #### [facility] [address] [address] [address] Bertha Duncan Protein [Mass/Vol] 8.1 g/dL Normal 6.4-8.2 [facility] Comment on above: Performed By: #### C MP #### [facility] [address] [address] [address] Bertha Duncan Sodium [Moles/Vol] 136 mmol/L Normal 136-145 [facility] Comment on above: Performed By: #### C MP #### [facility] [address] [address] [address] Bertha Duncan Urea nitrogen [Mass/Vol] 16.0 mg/dL Normal 6.4-19.3 [facility] Comment on above: Performed By: #### C MP #### [facility] [address] [address] [address] Bertha Duncan Urea nitrogen/Creatinine [Mass ratio] 25.8 mg/mg Normal [facility] Comment on above: Performed By: #### C MP #### [facility] [address] [address] [address] Bertha Duncan UA RANDOM W/MICROSCOPICon BACTERIA NONE SEEN Normal NONE SEEN [facility] Comment on above: Performed By: #### U AMIC #### [facility] [address] [address] [address] Bertha Duncan Bilirubin Ql (U) Negative Normal NEGATIVE [facility] Comment on above: Performed By: #### U AMIC #### [facility] [address] [address] [address] Bertha Duncan CAST NONE SEEN Normal NONE SEEN [facility] Comment on above: Performed By: #### U AMIC #### [facility] [address] [address] [address] Bertha Duncan Clarity (U) CLEAR Normal CLEAR [facility] Comment on above: Performed By: #### U AMIC #### [facility] [address] [address] [address] Bertha Duncan Color (U) LT. YELLOW Normal YELLOW [facility] Comment on above: Performed By: #### U AMIC #### [facility] [address] [address] [address] Bertha Duncan Crystals LM Nom (Urine sed) NONE SEEN Normal NONE SEEN [facility] Comment on above: Performed By: #### U AMIC #### [facility] [address] [place] [address] Dr. Bertha Duncan Epithelial cells LM Ql (Urine sed) MODERATE Abnormal NONE SEEN /RARE [facility] Comment on above: Performed By: #### U AMIC #### [facility] [address] [place] [address] Dr. Bertha Duncan Glucose Ql (U) Negative Normal NEGATIVE [facility] Comment on above: Performed By: #### U AMIC #### [facility] [address] [place] [address] Dr. Bertha Duncan Hemoglobin Ql (U) Negative Normal NEGATIVE [facility] Comment on above: Performed By: #### U AMIC #### [facility] [address] [address] [address] Bertha Duncan Ketones Ql (U) Negative Normal NEGATIVE [facility] Comment on above: Performed By: #### U AMIC #### [facility] [address] [address] [address] Bertha Duncan LEUKOCYTES TRACE Abnormal NEGATIVE [facility] Comment on above: Performed By: #### U AMIC #### [facility] [address] [address] [address] Bertha Duncan MUCOUS NONE SEEN Normal NONE SEEN [facility] Comment on above: Performed By: #### U AMIC #### [facility] [address] [address] [address] Bertha Duncan Nitrite Ql (U) Negative Normal NEGATIVE [facility] Comment on above: Performed By: #### U AMIC #### [facility] [address] [address] [address] Bertha Duncan pH (U) 6.0 [pH] Normal 5-9 [facility] Comment on above: Performed By: #### U AMIC #### [facility] [address] [address] [address] Bertha Duncan RBC NONE SEEN Abnormal 0-2 [facility] Comment on above: Performed By: #### U AMIC #### [facility] [address] [place] [address] Dr. Bertha Duncan SPEC GRAVITY 1.005 Normal 1.005-<=1.0 25 [facility] Comment on above: Performed By: #### U AMIC #### [facility] [address] [place] [address] Dr. Bertha Duncan UA PROTEIN Negative Normal NEGATIVE/ TRACE [facility] Comment on above: Performed By: #### U AMIC #### [facility] [address] [address] [address] Bertha Duncan Urobilinogen Qn (U) 0.2 {[place]'U}/dL Normal 0.2 - 1. 0 [facility] Comment on above: Performed By: #### U AMIC #### [facility] [address] [place] [address] Dr. Bertha Duncan WBC 0-2 Abnormal NONE SEEN [facility] Comment on above: Performed By: #### U AMIC #### [facility] [address] [place] [address] Dr. Bertha Duncan Urinalysis with Microscopico n 01-02-2022 Bacteria, UA 1+ Abnormal None [facility] Bilirubin Urine Negative NEGATIVE [facility] Color, UA Yellow Yellow [facility] Epithelial Cells UA 5 TO 10 [facility] Glucose, Ur 1+ Abnormal NEGATIVE [facility] Interpretation and review of laboratory results Abnormal [facility] Ketones Ql (U) Negative NEGATIVE [facility] Leukocyte esterase Test strip Ql (U) MODERATE Abnormal NEGATIVE [facility] Nitrite, Urine Negative NEGATIVE [facility] pH, UA 6.5 5 - 9 [facility] Protein, UA Negative NEGATIVE [facility] RBC, UA 0 TO 2 [facility] Specific [place], UA 1.010 1.01 - 1.02 [facility] Turbidity UA SLIGHTLY CLOUDY Abnormal Clear [facility] Urine Hgb Negative NEGATIVE [facility] Urobilinogen, Urine Normal Normal [facility] WBC, UA 5 TO 10 [facility] CULTURE URINEon 11-21-2021 CULTURE URINE Culture Observations : NO GROWTH. Normal [facility] Comment on above: Performed By: #### U MICRO, UARMICR #### [facility] [address] [address] [address] Bertha Duncan PROF CHEM 8 (BAS METB)on Anion gap [Moles/Vol] 11.2 mmol/L Normal [facility] Comment on above: Performed By: #### U MICRO, UARMICR #### [facility] [address] [address] [address] Bertha Duncan Calcium [Mass/Vol] 9.0 mg/dL Normal 8.5-10.1 [facility] Comment on above: Performed By: #### U MICRO, UARMICR #### [facility] [address] [address] [address] Bertha Duncan Chloride [Moles/Vol] 106 mmol/L Normal 98-107 [facility] Comment on above: Performed By: #### U MICRO, UARMICR #### [facility] [address] [place] [address] Dr. Bertha Duncan CO2 [Moles/Vol] 25.7 mmol/L Normal 21.0-32.0 [facility] Comment on above: Performed By: #### U MICRO, UARMICR #### [facility] [address] [address] [address] Bertha Duncan Creatinine [Mass/Vol] 0.74 mg/dL Normal 0.55-1.02 [facility] Comment on above: Performed By: #### U MICRO, UARMICR #### [facility] [address] [address] [address] Bertha Duncan EGFR-AF MALDIVIAN >60 Normal >=60 [facility] Comment on above: Performed By: #### U MICRO, UARMICR #### [facility] [address] [address] [address] Bertha Duncan EGFR-NON AF MALDIVIAN >60 Normal >=60 [facility] Comment on above: Performed By: #### U MICRO, UARMICR #### [facility] [address] [address] [address] Bertha Duncan Glucose [Mass/Vol] 93 mg/dL Normal 74-106 [facility] Comment on above: Performed By: #### U MICRO, UARMICR #### [facility] [address] [address] [address] Bertha Duncan Potassium [Moles/Vol] 3.9 mmol/L Normal 3.5-5.1 [facility] Comment on above: Performed By: #### U MICRO, UARMICR #### [facility] [address] [address] [address] Bertha Duncan Sodium [Moles/Vol] 139 mmol/L Normal 136-145 [facility] Comment on above: Performed By: #### U MICRO, UARMICR #### [facility] [address] [address] [address] Bertha Duncan Urea nitrogen [Mass/Vol] 8.0 mg/dL Normal 6.4-19.3 [facility] Comment on above: Performed By: #### U MICRO, UARMICR #### [facility] [address] [address] [address] Bertha Duncan Urea nitrogen/Creatinine [Mass ratio] 10.8 mg/mg Normal [facility] Comment on above: Performed By: #### U MICRO, UARMICR #### [facility] [address] [address] [address] Bertha Duncan PROTEIN RAND URINEon 022 UR PROT 12.1 mg/dL Critically high <=11.9 [facility] Comment on above: Performed By: #### P ROTU #### [facility] [address] [address] [address] Bertha Duncan UA RANDOMon 11-21-2021 Bilirubin Ql (U) Negative Normal NEGATIVE [facility] Comment on above: Performed By: #### U A #### [facility] [address] [place] [address] Dr. Bertha Duncan Clarity (U) CLEAR Normal CLEAR [facility] Comment on above: Performed By: #### U A #### [facility] [address] [place] [address] Dr. Bertha Duncan Color (U) YELLOW Normal YELLOW [facility] Comment on above: Performed By: #### U A #### [facility] [address] [address] [address] Bertha Duncan Glucose Ql (U) 500 mg/dl Abnormal NEGATIVE [facility] Comment on above: Performed By: #### U A #### [facility] [address] [place] [address] Dr. Bertha Duncan Hemoglobin Ql (U) Negative Normal NEGATIVE [facility] Comment on above: Performed By: #### U A #### [facility] [address] [address] [address] Bertha Duncan Ketones Ql (U) Negative Normal NEGATIVE [facility] Comment on above: Performed By: #### U A #### [facility] [address] [place] [address] Dr. Bertha Duncan LEUKOCYTES TRACE Abnormal NEGATIVE [facility] Comment on above: Performed By: #### U A #### [facility] [address] [place] [address] Dr. Bertha Duncan Nitrite Ql (U) Negative Normal NEGATIVE [facility] Comment on above: Performed By: #### U A #### [facility] [address] [place] [address] Dr. Bertha Duncan pH (U) 6.0 [pH] Normal 5-9 [facility] Comment on above: Performed By: #### U A #### [facility] [address] [place] [address] Dr. Bertha Duncan SPEC GRAVITY 1.015 Normal 1.005-<=1.0 25 [facility] Comment on above: Performed By: #### U A #### [facility] [address] [place] [address] Dr. Bertha Duncan UA PROTEIN Negative Normal NEGATIVE/ TRACE [facility] Comment on above: Performed By: #### U A #### [facility] [address] [place] [address] Dr. Bertha Duncan Urobilinogen Qn (U) 0.2 {[place]'U}/dL Normal 0.2 - 1. 0 [facility] Comment on above: Performed By: #### U A #### [facility] [address] [place] [address] Dr. Bertha Duncan CULTURE URINEon 11-13-2021 CULTURE [...] F Oxacillin >=4 R F Normal [facility] Comment on above: Performed By: #### U MICRO, UARMICR #### [facility] [address] [place] [address] Dr. Bertha Duncan CBC AUTO DIFFon 11-10-2021 BASO # 0.1 103/ul Normal 0.0-0.1 [facility] Comment on above: Performed By: #### C BC #### [facility] [address] [address] [address] Bertha Duncan Basophils/100 WBC (Bld) 0.5 % Normal 0.2-2.0 [facility] Comment on above: Performed By: #### C BC #### [facility] [address] [place] [address] Dr. Bertha Duncan EO # 0.2 103/ul Normal 0.0-0.7 [facility] Comment on above: Performed By: #### C BC #### [facility] [address] [place] [address] Dr. Bertha Duncan Eosinophils/100 WBC (Bld) 1.9 % Normal 0.9-7.0 [facility] Comment on above: Performed By: #### C BC #### [facility] [address] [place] [address] Dr. Bertha Duncan Erythrocyte distribution width (RBC) [Ratio] 12.2 % Normal 11.0-15.0 [facility] Comment on above: Performed By: #### C BC #### [facility] [address] [place] [address] Dr. Bertha Duncan Hematocrit (Bld) [Volume fraction] 39.0 % Normal 36.0-48.0 [facility] Comment on above: Performed By: #### C BC #### [facility] [address] [place] [address] Dr. Bertha Duncan Hemoglobin (Bld) [Mass/Vol] 12.7 g/dL Normal 12.0-16.0 [facility] Comment on above: Performed By: #### C BC #### [facility] [address] [place] [address] Dr. Bertha Duncan IG # 0.02 10e3/ul Normal 0.00-0.03 [facility] Comment on above: Performed By: #### C BC #### [facility] [address] [place] [address] Dr. Bertha Duncan IG % 0.2 % Normal 0.0-0.5 [facility] Comment on above: Performed By: #### C BC #### [facility] [address] [place] [address] Dr. Bertha Duncan LYMPH # 3.1 103/ul Normal 1.2-3.8 [facility] Comment on above: Performed By: #### C BC #### [facility] [address] [place] [address] Dr. Bertha Duncan Lymphocytes/100 WBC (Bld) 29.9 % Normal 20.5-60.0 [facility] Comment on above: Performed By: #### C BC #### [facility] [address] [place] [address] Dr. Bertha Duncan MANUAL DIFF REQ NO Normal [facility] Comment on above: Performed By: #### C BC #### [facility] [address] [place] [address] Dr. Bertha Duncan MCH (RBC) [Entitic mass] 28.0 pg Normal 26.7-34.0 [facility] Comment on above: Performed By: #### C BC #### [facility] [address] [place] [address] Dr. Bertha Duncan MCHC (RBC) [Mass/Vol] 32.6 g/dL Normal 29.9-35.2 [facility] Comment on above: Performed By: #### C BC #### [facility] [address] [place] [address] Dr. Bertha Duncan MCV (RBC) [Entitic vol] 85.9 fL Normal 81.0-99.0 [facility] Comment on above: Performed By: #### C BC #### [facility] [address] [place] [address] Dr. Bertha Duncan MONO # 0.7 103/ul Normal 0.3-0.8 [facility] Comment on above: Performed By: #### C BC #### [facility] [address] [place] [address] Dr. Bertha Duncan Monocytes/100 WBC (Bld) 7.0 % Normal 1.7-12.0 [facility] Comment on above: Performed By: #### C BC #### [facility] [address] [place] [address] Dr. Bertha Duncan NEUT # 6.3 103/ul Normal 1.4-6.5 [facility] Comment on above: Performed By: #### C BC #### [facility] [address] [place] [address] Dr. Bertha Duncan Neutrophils/100 WBC (Bld) 60.5 % Normal 43.0-75.0 [facility] Comment on above: Performed By: #### C BC #### [facility] [address] [place] [address] Dr. Bertha Duncan Platelet mean volume (Bld) [Entitic vol] 9.6 fL Normal 9.5-13.5 [facility] Comment on above: Performed By: #### C BC #### [facility] [address] [place] [address] Dr. eBrtha Duncan PLT 393 103/ul Normal 150-450 [facility] Comment on above: Performed By: #### C BC #### [facility] [address] [place] [address] Dr. Bertha Duncan RBC 4.54 106/ul Normal 4.20-5.40 [facility] Comment on above: Performed By: #### C BC #### [facility] [address] [place] [address] Dr. Bertha Duncan WBC 10.4 103/ul Normal 4.0-11.0 [facility] Comment on above: Performed By: #### C BC #### [facility] [address] [place] [address] Dr. Bertha Duncan UA (CLEAN/CATCH) MICROSCOPIC IF INDICATEon 11-10-2021 Bilirubin Ql (U) Negative Normal NEGATIVE [facility] Comment on above: Performed By: #### U MICRO, UARMICR #### [facility] [address] [place] [address] Dr. Bertha Duncan Clarity (U) SL CLOUDY Abnormal CLEAR [facility] Comment on above: Performed By: #### U MICRO, UARMICR #### [facility] [address] [address] [address] Bertha Duncan Color (U) LT. YELLOW Normal YELLOW [facility] Comment on above: Performed By: #### U MICRO, UARMICR #### [facility] [address] [address] [address] Bertha Duncan Glucose Ql (U) 100 mg/dl Abnormal NEGATIVE [facility] Comment on above: Performed By: #### U MICRO, UARMICR #### [facility] [address] [address] [address] Bertha Duncan Hemoglobin Ql (U) Negative Normal NEGATIVE [facility] Comment on above: Performed By: #### U MICRO, UARMICR #### [facility] [facility] [address] [address] [address] Bertha Duncan Ketones Ql (U) Negative Normal NEGATIVE [facility] Comment on above: Performed By: #### U MICRO, UARMICR #### [facility] [address] [address] [address] Bertha Duncan LEUKOCYTES TRACE Abnormal NEGATIVE [facility] Comment on above: Performed By: #### U MICRO, UARMICR #### [facility] [address] [place] [address] Dr. Bertha Duncan Nitrite Ql (U) Negative Normal NEGATIVE [facility] Comment on above: Performed By: #### U MICRO, UARMICR #### [facility] [address] [place] [address] Dr. Bertah Duncan pH (U) 7.0 [pH] Normal 5-9 [facility] Comment on above: Performed By: #### U MICRO, UARMICR #### [facility] [address] [address] [address] Bertha Duncan SPEC GRAVITY 1.015 Normal 1.005-<=1.0 25 [facility] Comment on above: Performed By: #### U MICRO, UARMICR #### [facility] [address] [place] [address] Dr. Bertha Duncan UA PROTEIN Negative Normal NEGATIVE/ TRACE [facility] Comment on above: Performed By: #### U MICRO, UARMICR #### [facility] [address] [address] [address] Bertha Duncan UR MICRO IND INDICATED Normal [facility] Comment on above: Performed By: #### U MICRO, UARMICR #### [facility] [address] [place] [address] Dr. Bertha Duncan Urobilinogen Qn (U) 0.2 {Maine'U}/dL Normal 0.2 - 1. 0 [facility] Comment on above: Performed By: #### U MICRO, UARMICR #### [facility] [address] [place] [address] Dr. Bertha Duncan URINE MICROSCOPIC ONLYon BACTERIA TRACE Abnormal NONE SEEN [facility] Comment on above: Performed By: #### U MICRO, UARMICR #### [facility] [address] [place] [address] Dr. Bertha Duncan Bacteria identified Cx Nom (U) INDICATED Normal [facility] Comment on above: Performed By: #### U MICRO, UARMICR #### [facility] [address] [place] [address] Dr. Bertha Duncan CAST NONE SEEN Normal NONE SEEN [facility] Comment on above: Performed By: #### U MICRO, UARMICR #### [facility] [address] [place] [address] Dr. Bertha Duncan Crystals LM Nom (Urine sed) NONE SEEN Normal NONE SEEN [facility] Comment on above: Performed By: #### U MICRO, UARMICR #### [facility] [address] [place] [address] Dr. Bertha Duncan Epithelial cells LM Ql (Urine sed) RARE Normal NONE SEEN /RARE [facility] Comment on above: Performed By: #### U MICRO, UARMICR #### [facility] [address] [place] [address] Dr. Bertha Duncan MUCOUS TRACE Abnormal NONE SEEN [facility] Comment on above: Performed By: #### U MICRO, UARMICR #### [facility] [address] [place] [address] Dr. Bertha Duncan RBC 0-2 Normal 0-2 [facility] Comment on above: Performed By: #### U MICRO, UARMICR #### [facility] [address] [place] [address] Dr. Bertha Duncan WBC 2-5 Abnormal NONE SEEN [facility] Comment on above: Performed By: #### U MICRO, UARMICR #### [facility] [address] [address] [address] Bertha Duncan CULTURE URINEon 11-02-2021 CULTURE URINE Culture Observations : HEAVY GROWTH OF MIXED GENITAL BEAU. NO POTENTIAL PATHOGENS SEEN. Normal [facility] Comment on above: Performed By: #### U MICRO, UARMICR #### [facility] [address] [place] [address] Dr. Bertha Duncan UA (CLEAN/CATCH) [place] SUPER[employer]/MICRO I F IND.on 11-02-2021 Bilirubin Ql (U) Negative Normal NEGATIVE [facility] Comment on above: Performed By: #### U MICRO, UACSIND #### [facility] [address] [place] [address] Dr. Bertha Duncan Clarity (U) CLEAR Normal CLEAR [facility] Comment on above: Performed By: #### U MICRO, UACSIND #### [facility] [address] [place] [address] Dr. Bertha Duncan Color (U) LT. YELLOW Normal YELLOW [facility] Comment on above: Performed By: #### U MICRO, UACSIND #### [facility] [address] [place] [address] Dr. Bertha Duncan Glucose Ql (U) 250 mg/dl Abnormal NEGATIVE [facility] Comment on above: Performed By: #### U MICRO, UACSIND #### [facility] [address] [place] [address] Dr. Bertha Duncan Hemoglobin Ql (U) SMALL Abnormal NEGATIVE [facility] Comment on above: Performed By: #### U MICRO, UACSIND #### [facility] [address] [place] [address] Dr. Bertha Duncan Ketones Ql (U) Negative Normal NEGATIVE [facility] Comment on above: Performed By: #### U MICRO, UACSIND #### [facility] [address] [place] [address] Dr. Bertha Duncan LEUKOCYTES LARGE Abnormal NEGATIVE [facility] Comment on above: Performed By: #### U MICRO, UACSIND #### [facility] [address] [address] [address] Bertha Duncan Nitrite Ql (U) Negative Normal NEGATIVE [facility] Comment on above: Performed By: #### U MICRO, UACSIND #### [facility] [address] [address] [address] Bertha Duncan pH (U) 6.0 [pH] Normal 5-9 [facility] Comment on above: Performed By: #### U MICRO, UACSIND #### [facility] [address] [place] [address] Dr. Bertha Duncan SPEC GRAVITY 1.025 Normal 1.005-<=1.[address] [place] [address] Comment on above: Performed By: #### U MICRO, UACSIND #### [facility] [address] [place] [address] Dr. Bertha Duncan UA PROTEIN Negative Normal NEGATIVE/ TRACE [facility] Comment on above: Performed By: #### U MICRO, UACSIND #### [facility] [address] [place] [address] Dr. Bertha Duncan UR MICRO IND INDICATED Normal [facility] Comment on above: Performed By: #### U MICRO, UACSIND #### [facility] [address] [place] [address] Dr. Bertha Duncan Urobilinogen Qn (U) 0.2 {[place]aine'U}/dL Normal 0.2 - 1. 0 [facility] Comment on above: Performed By: #### U MICRO, UACSIND #### [facility] [address] [place] [address] Dr. Bertha Duncan URINE MICROSCOPIC ONLYon BACTERIA SMALL Abnormal NONE SEEN [facility] Comment on above: Performed By: #### U MICRO, UACSIND #### [facility] [address] [address] [address] Bertha Duncan Bacteria identified Cx Nom (U) INDICATED Normal [facility] Comment on above: Performed By: #### U MICRO, UACSIND #### [facility] [address] [address] [address] Bertha Duncan CAST NONE SEEN Normal NONE SEEN [facility] Comment on above: Performed By: #### U MICRO, UACSIND #### [facility] [address] [place] [address] Dr. Bertha Duncan Crystals LM Nom (Urine sed) NONE SEEN Normal NONE SEEN [facility] Comment on above: Performed By: #### U MICRO, UACSIND #### [facility] [address] [place] [address] Dr. Bertha Duncan Epithelial cells LM Ql (Urine sed) MODERATE Abnormal NONE SEEN /RARE [facility] Comment on above: Performed By: #### U MICRO, UACSIND #### [facility] [address] [place] [address] Dr. Bertha Duncan MUCOUS TRACE Abnormal NONE SEEN [facility] Comment on above: Performed By: #### U MICRO, UACSIND #### [facility] [address] [place] [address] Dr. Bertha Duncan RBC 5-10 Abnormal 0-2 [facility] Comment on above: Performed By: #### U MICRO, UACSIND #### [facility] [address] [place] [address] Dr. Bertha Duncan WBC 10-20 Abnormal NONE SEEN [facility] Comment on above: Performed By: #### U MICRO, UACSIND #### [facility] [address] [place] [address] Dr. Bertha Duncan US KIDNEYS BLADDERon 022 [...] ARTEM WILLS Date: 2021-11-02 18:01 Normal [facility] CBC AUTO DIFFon 10-27-2021 BASO # 0.0 103/ul Normal 0.0-0.1 [facility] Comment on above: Performed By: #### U MICRO, UARMICR #### [facility] [address] [address] [address] Bertha Duncan Basophils/100 WBC (Bld) 0.4 % Normal 0.2-2.0 [facility] Comment on above: Performed By: #### U MICRO, UARMICR #### [facility] [address] [address] [address] Bertha Duncan EO # 0.1 103/ul Normal 0.0-0.7 [facility] Comment on above: Performed By: #### U MICRO, UARMICR #### [facility] [address] [address] [address] Bertha Duncan Eosinophils/100 WBC (Bld) 1.5 % Normal 0.9-7.0 [facility] Comment on above: Performed By: #### U MICRO, UARMICR #### [facility] [address] [address] [address] Bertha Duncan Erythrocyte distribution width (RBC) [Ratio] 12.8 % Normal 11.0-15.0 [facility] Comment on above: Performed By: #### U MICRO, UARMICR #### [facility] [address] [place] [address] Dr. Bertha Duncan Hematocrit (Bld) [Volume fraction] 36.0 % Normal 36.0-48.0 [facility] Comment on above: Performed By: #### U MICRO, UARMICR #### [facility] [address] [place] [address] Dr. Bertha Duncan Hemoglobin (Bld) [Mass/Vol] 11.7 g/dL Critically low 12.0-16.0 [facility] Comment on above: Performed By: #### U MICRO, UARMICR #### [facility] [address] [place] [address] Dr. Bertha Duncan IG # 0.02 10e3/ul Normal 0.00-0.03 [facility] Comment on above: Performed By: #### U MICRO, UARMICR #### [facility] [address] [place] [address] Dr. Bertha Duncan IG % 0.3 % Normal 0.0-0.5 [facility] Comment on above: Performed By: #### U MICRO, UARMICR #### [facility] [address] [place] [address] Dr. Bertha Duncan LYMPH # 2.2 103/ul Normal 1.2-3.8 [facility] Comment on above: Performed By: #### U MICRO, UARMICR #### [facility] [address] [place] [address] Dr. Bertha Duncan Lymphocytes/100 WBC (Bld) 30.2 % Normal 20.5-60.0 [facility] Comment on above: Performed By: #### U MICRO, UARMICR #### [facility] [address] [place] [address] Dr. Bertha Duncan MANUAL DIFF REQ NO Normal [facility] Comment on above: Performed By: #### U MICRO, UARMICR #### [facility] [address] [place] [address] Dr. Bertha Duncan MCH (RBC) [Entitic mass] 28.5 pg Normal 26.7-34.0 [facility] Comment on above: Performed By: #### U MICRO, UARMICR #### [facility] [address] [place] [address] Dr. Bertha Duncan MCHC (RBC) [Mass/Vol] 32.5 g/dL Normal 29.9-35.2 [facility] Comment on above: Performed By: #### U MICRO, UARMICR #### [facility] [address] [place] [address] Dr. Bertha Duncan MCV (RBC) [Entitic vol] 87.8 fL Normal 81.0-99.0 [facility] Comment on above: Performed By: #### U MICRO, UARMICR #### [facility] [address] [place] [address] Dr. Bertha Duncan MONO # 0.5 103/ul Normal 0.3-0.8 [facility] Comment on above: Performed By: #### U MICRO, UARMICR #### [facility] [address] [place] [address] Dr. Bertha Duncan Monocytes/100 WBC (Bld) 6.9 % Normal 1.7-12.0 [facility] Comment on above: Performed By: #### U MICRO, UARMICR #### [facility] [address] [place] [address] Dr. Bertha Duncan NEUT # 4.5 103/ul Normal 1.4-6.5 [facility] Comment on above: Performed By: #### U MICRO, UARMICR #### [facility] [address] [place] [address] Dr. Bertha Duncan Neutrophils/100 WBC (Bld) 60.7 % Normal 43.0-75.0 [facility] Comment on above: Performed By: #### U MICRO, UARMICR #### [facility] [address] [place] [address] Dr. Bertha Duncan Platelet mean volume (Bld) [Entitic vol] 9.5 fL Normal 9.5-13.5 [facility] Comment on above: Performed By: #### U MICRO, UARMICR #### [facility] [address] [place] [address] Dr. Bertha Duncan PLT 360 103/ul Normal 150-450 [facility] Comment on above: Performed By: #### U MICRO, UARMICR #### [facility] [address] [place] [address] Dr. Bertha Duncan RBC 4.10 106/ul Critically low 4.20-5.40 [facility] Comment on above: Performed By: #### U MICRO, UARMICR #### [facility] [address] [place] [address] Dr. Bertha Duncan WBC 7.4 103/ul Normal 4.0-11.0 [facility] Comment on above: Performed By: #### U MICRO, UARMICR #### [facility] [address] [place] [address] Dr. Bertha Duncan UA RANDOMon 10-27-2021 Bilirubin Ql (U) Negative Normal NEGATIVE [facility] Comment on above: Performed By: #### U A #### [facility] [address] [place] [address] Dr. Bertha Duncan Clarity (U) CLEAR Normal CLEAR [facility] Comment on above: Performed By: #### U A #### [facility] [address] [place] [address] Dr. Bertha Duncan Color (U) RED Abnormal YELLOW [facility] Comment on above: Performed By: #### U A #### [facility] [address] [place] [address] Dr. Bertha Duncan Glucose Ql (U) 250 mg/dl Abnormal NEGATIVE [facility] Comment on above: Performed By: #### U A #### [facility] [address] [place] [address] Dr. Bertha Duncan Hemoglobin Ql (U) LARGE Abnormal NEGATIVE [facility] Comment on above: Performed By: #### U A #### [facility] [address] [address] [address] Bertha Duncan Ketones Ql (U) Negative Normal NEGATIVE [facility] Comment on above: Performed By: #### U A #### [facility] [address] [address] [address] Bertha Duncan LEUKOCYTES Negative Normal NEGATIVE [facility] Comment on above: Performed By: #### U A #### [facility] [address] [place] [address] Dr. Bertha Duncan Nitrite Ql (U) Negative Normal NEGATIVE [facility] Comment on above: Performed By: #### U A #### [facility] [address] [place] [address] Dr. Bertha Duncan pH (U) 5.5 [pH] Normal 5-9 [facility] Comment on above: Performed By: #### U A #### [facility] [address] [place] [address] Dr. Bertha Duncan SPEC GRAVITY 1.015 Normal 1.005-<=1.[address] [place] [address] Comment on above: Performed By: #### U A #### [facility] [address] [place] [address] Dr. Bertha Duncan UA PROTEIN TRACE Normal NEGATIVE/ TRACE [facility] Comment on above: Performed By: #### U A #### [facility] [address] [place] [address] Dr. Bertha Duncan Urobilinogen Qn (U) 0.2 {[place]'U}/dL Normal 0.2 - 1. 0 [facility] Comment on above: Performed By: #### U A #### [facility] [address] [place] [address] Dr. Bertha Duncan ABO/RHon 10-07-2021 ABO/Rh Positive [facility] Basic Metabolic Panel w/ Ref angelina to MGon 10-07-2021 Anion gap [Moles/Vol] 16 mmol/L 9 - 17 mmol/L [facility] Calcium [Mass/Vol] 9.8 mg/dL 8.6 - 10. 4 mg/dL [facility] Chloride [Moles/Vol] 98 mmol/L 98 - 10 7 mmol/L [facility] CO2 [Moles/Vol] 25 mmol/L 20 - 31 mmol/L [facility] Creatinine [Mass/Vol] 0.41 mg/dL Low 0.50 - 0.90 mg/dL [facility] GFR Non- Pediatric GFR requires additional information. Refer to [facility] website for calculator. >60 mL/min [facility] Glucose [Mass/Vol] 69 mg/dL Low 70 - 99 mg/dL [facility] Interpretation and review of laboratory results Abnormal [facility] Potassium [Moles/Vol] 4.1 mmol/L 3.7 - 5.3 mmol/L [facility] Sodium [Moles/Vol] 139 mmol/L 135 - 144 mmol/L [facility] Urea nitrogen (BldV) [Mass/Vol] 10 mg/dL 6 - 20 mg/dL [facility] Urea nitrogen/Creatinine (Bld) [Mass ratio] 24 High [facility] CBC with Auto Differentialon 10-07-2021 Absolute Eos # 0.23 [facility] Absolute Immature Granulocyte 0.19 [facility] Absolute Lymph # 3.34 [facility] Absolute [place] # 1.34 [facility] Basophils (Bld) [#/Vol] 0.06 10*3/uL [facility] Basophils/100 WBC (Bld) 0 % 0 - 2 % [facility] Eosinophils/100 WBC (Bld) 1 % 1 - 4 % [facility] Hematocrit (Bld) [Volume fraction] 35.9 % Low 36.3 - 47.1 % [facility] Hemoglobin (Bld) [Mass/Vol] 11.6 g/dL Low 11.9 - 15.1 g/dL [facility] Immature granulocytes/100 WBC (Bld) 1 % High 0 [facility] Interpretation and review of laboratory results Abnormal [facility] Lymphocytes/100 WBC (Bld) 18 % Low 25 - 45 % [facility] MCH (RBC) [Entitic mass] 28.8 pg 25.2 - 33.5 pg [facility] MCHC (RBC) [Mass/Vol] 32.3 g/dL 28.4 - 34.8 g/dL [facility] MCV (RBC) [Entitic vol] 89.1 fL 82.6 - 102.9 fL [facility] Monocytes/100 WBC (Bld) 7 % 2 - 8 % [facility] NRBC Automated 0.0 0.0 per 100 WBC [facility] Platelet distribution width (Bld) [Ratio] 12.4 % 11.8 - 14.4 % [facility] Platelet mean volume (Bld) [Entitic vol] 8.3 fL 8.1 - 13.5 fL [facility] Platelets (Bld) [#/Vol] 664 10*3/uL High [facility] RBC (Bld) [#/Vol] 4.03 10*6/uL 3.95 - 5.1 1 m/uL [facility] Segmented neutrophils/100 WBC (Bld) 73 % High 34 - 64 % [facility] Segs Absolute 13.24 High [facility] WBC (Bld) [#/Vol] 18.4 10*3/uL High [facility] HCG, Quantitative, on 10-07-2021 hCG Quant 6301 High <5 mIU/mL [facility] Comment on above: Non-preg premeno <=5 Postmeno <=8 Male <=3 If HCG results do not concur with clinical observations, additional testing to confirm results is recommended. Elevated results not associated with may be found in patients with other diseases such as tumors of the germ cells (testis, ovaries, etc.), bladder, pancreas, stomach, lungs, and liver. Interpretation and review of laboratory results Abnormal [facility] Hepatic Function Panelon Albumin [Mass/Vol] 4.1 g/dL 3.5 - 5.2 g/dL [facility] Albumin/Globulin [Mass ratio] 1.1 {ratio} [facility] ALP (Bld) [Catalytic activity/Vol] 86 U/L 35 - 104 U/L [facility] ALT [Catalytic activity/Vol] 15 U/L 5 - 33 U/L [facility] AST [Catalytic activity/Vol] 27 U/L <32 [facility] Bilirubin [Mass/Vol] 0.18 mg/dL Low 0.3 - 1 .2 mg/dL [facility] Bilirubin, Indirect Can not be calculated 0.00 - 1.00 mg/dL [facility] Bilirubin.indirect [Mass/Vol] mg/dL <0.31 mg/dL [facility] Free PSA/Total PSA [Mass fraction] 8.0 g/dL 6.4 - 8.3 g/dL [facility] Interpretation and review of laboratory results Abnormal [facility] Laboratory - Chemistry and C hemistry - challengeon 10-07-2021 GFR/1.73 sq M.predicted MDRD (S/P/Bld) [Vol rate/Area] [facility] Comment on above: Average GFR for <20 years old not available. Chronic Kidney Disease: <60 mL/min/1.73sq m Kidney failure: <15 mL/min/1.73sq m eGFR calculated using average adult body mass. Additional eGFR calculator available at: http://www.Decisionlink/multiple_crcl_2012.htm Stage 1: Some kidney damage normal GFR Stage 2: Mild kidney damage GFR 60-89 Stage 3: Moderate kidney damage GFR 30-59 Stage 4: Severe kidney damage GFR 15-29 Stage 5: Severe kidney damage GFR <15 ESRD - chronic treatment by dialysis or transplant Lactate, Sepsison 10-07-2021 Interpretation and review of laboratory results Abnormal [facility] Lactic Acid, Sepsis 3.2 mmol/L High 0.5 - 1. 9 mmol/L [facility] Interpretation and review of laboratory results Abnormal [facility] Lactic Acid, Sepsis 3.0 mmol/L High 0.5 - 1. 9 mmol/L [facility] Lipaseon 10-07-2021 Lipase [Catalytic activity/Vol] 32 U/L 13 - 60 U/L [facility] Microscopic Urinalysison - [facility] Bacteria, UA TRACE Abnormal None [facility] Epithelial Cells UA 2 TO 5 [facility] Interpretation and review of laboratory results Abnormal [facility] RBC, UA 50 TO 100 [facility] WBC, UA 5 TO 10 [facility] Urinalysis with Reflex to Cu ltureon 10-07-2021 Bilirubin Urine Negative NEGATIVE [facility] Color, UA Yellow Yellow [facility] Glucose, Ur TRACE Abnormal NEGATIVE [facility] Interpretation and review of laboratory results Abnormal [facility] Ketones Ql (U) Negative NEGATIVE [facility] Leukocyte esterase Test strip Ql (U) TRACE Abnormal NEGATIVE [facility] Nitrite, Urine Negative NEGATIVE [facility] pH, UA 6.5 [facility] Protein, UA 1+ Abnormal NEGATIVE [facility] Specific [place], UA <1.005 Low [facility] Turbidity UA Clear Clear [facility] Urine Hgb 3+ Abnormal NEGATIVE [facility] Urobilinogen, Urine Normal Normal [facility] XR CHEST PORTABLEon 10-08-19 22 Other than mild atelectasis in the right perihilar area no acute lung disease. [facility] CONSOLIDATED EXAMINATION: ONE XRAY VIEW OF THE CHEST 10/07/2021 6:13 pm COMPARISON: June 13, 2020 HISTORY: ORDERING SYSTEM PROVIDED HISTORY: Slight decreased breath sounds left lower lung TECHNOLOGIST PROVIDED HISTORY: Slight decreased breath sounds left lower lung FINDINGS: Mild atelectasis in the right perihilar area. No other active lung parenchymal or pleural disease. Heart, mediastinum and pleural surfaces appear unremarkable. [facility]IS CONSOLID[facility] Madelaine Levine MD - 10/07/2021 EXAMINATION: ONE XRAY [...] right perihilar area no acute lung disease. [facility] [employer] Phone: Radiology Study observation (narrative) [facility] [employer] Phone: XR CHEST PORTABLEOrdered By: Madelaine Levine on 10-07-2021 [facility] [employer] Phone: US URINARY BLADDER LIMITEDon 07-20-2021 Right ureteral jet could not be visualized. Postvoid residual 212 mL. [facility] EXAMINATION: ULTRASOUND OF THE URINARY BLADDER 07/20/2021 COMPARISON: None. HISTORY: ORDERING SYSTEM PROVIDED HISTORY: Urinary tract infection without hematuria, site unspecified FINDINGS: Urinary bladder unremarkable in appearance with prevoid volume 495 mL. Right ureteral jet not demonstrated. Postvoid residual 212 mL. [facility] Nirmal Haskins DO - 07/20/2021 EXAMINATION: ULTRASOUND OF THE URINARY BLADDER 07/20/2021 COMPARISON: None. HISTORY: ORDERING SYSTEM PROVIDED HISTORY: Urinary tract infection without hematuria, site unspecified FINDINGS: Urinary bladder unremarkable in appearance with prevoid volume 495 mL. Right ureteral jet not demonstrated. Postvoid residual 212 mL. IMPRESSION: Right ureteral jet could not be visualized. Postvoid residual 212 mL. [employer] Phone: Radiology Study observation (narrative) [employer] Phone: US URINARY BLADDER LIMITEDOr dered By: Nirmal Haskins on 07-20-2021 [employer] Phone: Urinalysis with Microscopico n 07-12-2021 - [employer] Bacteria, UA 2+ Abnormal None [employer] Bilirubin Urine Negative [facility]IVE [facility] Yellow Yellow [employer] Epithelial Cells UA 2 TO 5 [employer] Glucose, Ur Negative NEGATIVE [employer] Interpretation and review of laboratory results Abnormal [employer] Ketones Ql (U) Negative NEGATIVE [facility] Leukocyte esterase Test strip Ql (U) LARGE Abnormal NEGATIVE [employer] Nitrite, Urine Negative NEGATIVE [facility] pH, UA 6.5 [employer] Protein, UA Negative NEGATIVE [facility] RBC, UA 0 TO 2 [facility] Specific Vidor, UA 1.010 [employer] Turbidity UA Clear Clear [facility] Urine Hgb Negative NEGATIVE [facility] [employer] Urobilinogen, Urine Normal Normal [facility] [employer] WBC, UA 20 TO 50 [facility] [employer] APTTOrdered By: Louise martinez on 01-19-2021 aPTT Coag (Bld) [Time] 29.5 s [facility] [employer] Work Phone: Comment on above: IV Heparin Therapy Range: 62.0-94.0 CBC Auto DifferentialOrdered By: Louise Ordonez on 01-19-2021 Absolute Eos # 0.11 [employer] [facility] Work Phone: Absolute Immature Granulocyte 0.05 [facility] Work Phone: Absolute Lymph # 2.08 [facility] Work Phone: Absolute Hoke # 0.60 [facility] Work Phone: Basophils (Bld) [#/Vol] 0.03 10*3/uL [employer] Work Phone: Basophils/100 WBC (Bld) 0 % 0 - 2 % [employer] Work Phone: Differential Type NOT REPORTED [employer] Work Phone: Eosinophils/100 WBC (Bld) 1 % 1 - 4 % [employer] Work Phone: Hematocrit (Bld) [Volume fraction] 43.7 % 36.3 - 47.1 % [employer] Work Phone: Hemoglobin.gastrointes tinal spec 1 Ql (Stl) 14.9 g/dL 11.9 - 15.1 g/dL [employer] Work Phone: Immature granulocytes/100 WBC (Bld) 1 % High 0 [employer] Work Phone: Interpretation and review of laboratory results Abnormal [employer] Work Phone: Lymphocytes/100 WBC (Bld) 21 % Low 25 - 45 % [employer] Phone: MCH (RBC) [Entitic mass] 30.3 pg 25.0 - 35.0 pg [employer] Phone: MCHC (RBC) [Mass/Vol] 34.1 g/dL 28.4 - 34.8 g/dL [employer] Phone: MCV (RBC) [Entitic vol] 88.8 fL 78.0 - 102.0 fL [employer] Phone: Monocytes/100 WBC (Bld) 6 % 2 - 8 % [employer] Phone: NRBC Automated 0.0 0.0 per 100 WBC [employer] Phone: Platelet distribution width (Bld) [Ratio] 12.3 % 11.8 - 14.4 % [employer] Phone: Platelet Estimate NOT REPORTED [employer] Phone: Platelet mean volume (Bld) [Entitic vol] 9.8 fL 8.1 - 13.5 fL [employer] Phone: Platelets (Bld) [#/Vol] 297 10*3/uL [employer] Phone: RBC (Bld) [#/Vol] 4.92 10*6/uL 3.95 - 5.1 1 m/uL [employer] Work Phone: RBC (Bld) [#/Vol] NOT REPORTED [employer] Phone: Segmented neutrophils/100 WBC (Bld) 71 % High 34 - 64 % [employer] Phone: Segs Absolute 6.86 [employer] Work Phone: WBC (Bld) [#/Vol] 9.7 10*3/uL [employer] Phone: WBC (Bld) [#/Vol] NOT REPORTED [employer] Phone: [employer] Phone: Comprehensive Metabolic Pane lOrdered By: Louise Ordonez on 01-19-2021 Albumin [Mass/Vol] 5.1 g/dL 3.5 - 5.2 g/dL [employer] Phone: Albumin/Globulin [Mass ratio] 1.5 {ratio} [employer] Phone: ALP (Bld) [Catalytic activity/Vol] 90 U/L 35 - 104 U/L [employer] Phone: ALT [Catalytic activity/Vol] 22 U/L 5 - 33 U/L [employer] Phone: Anion gap [Moles/Vol] 14 mmol/L 9 - 17 mmol/L [employer] Phone: AST [Catalytic activity/Vol] 29 U/L <32 [employer] Phone: Bilirubin [Mass/Vol] 0.54 mg/dL 0.3 - 1 .2 mg/dL [employer] Phone: Calcium [Mass/Vol] 10.4 mg/dL 8.6 - 10. 4 mg/dL [employer] Phone: Chloride [Moles/Vol] 103 mmol/L 98 - 10 7 mmol/L [employer] Phone: CO2 [Moles/Vol] 26 mmol/L 20 - 31 mmol/L [employer] Phone: Creatinine [Mass/Vol] 0.52 mg/dL 0.50 - 0.90 mg/dL [employer] Phone: Free PSA/Total PSA [Mass fraction] 8.6 g/dL High 6.4 - 8.3 g/dL [employer] Phone: GFR NOT REPORTED >60 mL/min [facility] Work Phone: GFR Non- Pediatric GFR requires additional information. Refer to NKDEP website for calculator. >60 mL/min [employer] Phone: Glucose [Mass/Vol] 82 mg/dL 70 - 99 mg/dL [employer] Phone: Interpretation and review of laboratory results Abnormal [employer] Phone: Potassium [Moles/Vol] 4.3 mmol/L 3.7 - 5.3 mmol/L [employer] Phone: Sodium [Moles/Vol] 143 mmol/L 135 - 144 mmol/L [employer] Phone: Urea nitrogen (BldV) [Mass/Vol] 15 mg/dL 6 - 20 mg/dL [employer] Phone: Urea nitrogen/Creatinine (Bld) [Mass ratio] 29 High [employer] Phone: [employer] Phone: EKG 12 LeadOrdered By: Morena Ordonez on 01-19-2021 Atrial Rate 63 BPM [employer] Phone: P [place] 33 degrees [employer] Phone: P-R Interval 136 ms [employer] Phone: Q-T Interval 386 ms [employer] Phone: QRS Duration 98 ms [employer] Phone: QTc Calculation (Bazett) 395 ms [employer] Phone: R [place] 63 degrees [employer] Phone: T [place] 47 degrees [employer] Phone: Ventricular Rate 63 BPM [employer] Phone: Normal sinus rhythm with sinus arrhythmia Normal ECG When compared with ECG of 13-JUN-2020 13:57, No significant change was found Confirmed by Marlyn Boyce MD ([id number]) on 01/19/2021 10:08:57 PM [employer] Phone: Leeroy, [employer]hpn Incoming E kg Results From [employer] - 01/19/2021 10:09 PM EDT Normal sinus rhythm with sinus arrhythmia Normal ECG When compared with ECG of 13-JUN-2020 13:57, No significant change was found Confirmed by Marlyn Boyce MD ([id number]) on 01/19/2021 10:08:57 PM [employer] Phone: [employer] Phone: Laboratory - Chemistry and C hemistry - challengeOrdered By: Louise Ordonez on 01-19-2021 GFR/1.73 sq M.predicted MDRD (S/P/Bld) [Vol rate/Area] [employer] Phone: Comment on above: Average GFR for <20 years old not available. Chronic Kidney Disease: <60 mL/min/1.73sq m Kidney failure: <15 mL/min/1.73sq m eGFR calculated using average adult body mass. Additional eGFR calculator available at: http://www.Decisionlink/multiple_crcl_2012.htm Stage 1: Some kidney damage normal GFR Stage 2: Mild kidney damage GFR 60-89 Stage 3: Moderate kidney damage GFR 30-59 Stage 4: Severe kidney damage GFR 15-29 Stage 5: Severe kidney damage GFR <15 ESRD - chronic treatment by dialysis or transplant No Panel InformationOrdered By: Louise Ordonez on 01-19-2021 [employer] Phone: Protime-INROrdered By: Morena Ordonez on 01-19-2021 INR Coag (Bld) [Relative time] 1.1 {INR} [employer] Phone: Comment on above: Non-therapeutic Range: INR = 0.9-1.2 Therapeutic Range: Moderate Anticoagulant Intensity: INR = 2.0-3.0 High Anticoagulant Intensity: INR = 2.5-3.5 PT Coag (PPP) [Time] 13.9 [facility] Work Phone: Living Will/POAon 10-12-2020 Living Will/POA [id number] 0CD:127 Normal [facility] Pathology Noteon 10-12-2020 Pathology Note [id number]:127 Normal [facility] Ambulatory Clinical Summaryo n 10-11-2020 Ambulatory Clinical Summary {[id number] Normal [facility] General Surgery Office/Clini c Noteon 10-11-2020 General Surgery Office/Clinic Note Chief Complaint Post operative visit HPI Staff 4 Day s/p Cholecystectomy completed at [facility]. Present today with mother. Denies symptoms of [...] Tobacco Use:. Never Smokeless Tobacco Use:., 10/11/2020 [facility] Comment on above: Result Comment: Elec tronically [...] health care provider or diet and nutrition services manager (dietitian). This may include: ? Eating fewer [...] weight paul (more content not included)... Normal [facility] RAD - MRI Reporton RAD - MRI Report [id number]:127 Normal [facility] CBC Auto DifferentialOrdered By: Louise Mccullough on 10-01-2020 [employer] Eos # 0.10 [facility] Work Phone: Absolute Immature Granulocyte <0.03 [employer] Work Phone: Absolute Lymph # 2.27 [facility] Work Phone: Absolute Hoke # 0.54 [facility] Work Phone: Basophils (Bld) [#/Vol] 0.04 10*3/uL [employer] Work Phone: Basophils/100 WBC (Bld) 1 % 0 - 2 % [employer] Work Phone: Differential Type NOT REPORTED [employer] Phone: Eosinophils/100 WBC (Bld) 1 % 1 - 4 % [employer] Phone: Hematocrit (Bld) [Volume fraction] 43.3 % 36.3 - 47.1 % [employer] Phone: Hemoglobin.gastrointes tinal spec 1 Ql (Stl) 14.5 g/dL 11.9 - 15.1 g/dL [employer] Phone: Immature granulocytes/100 WBC (Bld) 0 % 0 [employer] Phone: Lymphocytes/100 WBC (Bld) 30 % 25 - 45 % [employer] Phone: MCH (RBC) [Entitic mass] 29.4 pg 25.0 - 35.0 pg [employer] Phone: MCHC (RBC) [Mass/Vol] 33.5 g/dL 28.4 - 34.8 g/dL [employer] Phone: MCV (RBC) [Entitic vol] 87.8 fL 78.0 - 102.0 fL [employer] Phone: Monocytes/100 WBC (Bld) 7 % 2 - 8 % [employer] Phone: NRBC Automated 0.0 0.0 per 100 WBC [employer] Phone: Platelet distribution width (Bld) [Ratio] 13.1 % 11.8 - 14.4 % [employer] Phone: Platelet Estimate NOT REPORTED [employer] Phone: Platelet mean volume (Bld) [Entitic vol] 10.9 fL 8.1 - 13.5 fL [employer] Phone: Platelets (Bld) [#/Vol] 313 10*3/uL [employer] Phone: RBC (Bld) [#/Vol] 4.93 10*6/uL 3.95 - 5.1 1 m/uL [employer] Phone: RBC (Bld) [#/Vol] NOT REPORTED [employer] Phone: Segmented neutrophils/100 WBC (Bld) 61 % 34 - 64 % [employer] Phone: Segs Absolute 4.57 [employer] Work Phone: WBC (Bld) [#/Vol] 7.5 10*3/uL [employer] Phone: WBC (Bld) [#/Vol] NOT REPORTED [employer] Phone: [employer] Phone: Comprehensive Metabolic Pane lOrdered By: Louise Mccullough on 10-01-2020 Albumin [Mass/Vol] 4.7 g/dL 3.5 - 5.2 g/dL [employer] Phone: Albumin/Globulin [Mass ratio] 1.6 {ratio} [employer] Phone: ALP (Bld) [Catalytic activity/Vol] 200 U/L High 35 - 104 U/L [employer] Phone: ALT [Catalytic activity/Vol] 514 U/L High 5 - 33 U/L [employer] Work Phone: Anion gap [Moles/Vol] 9 mmol/L 9 - 17 mmol/L [facility] Phone: AST [Catalytic activity/Vol] 378 U/L High <32 [employer] Phone: Bilirubin [Mass/Vol] 1.72 mg/dL High 0.3 - 1 .2 mg/dL [facility] Phone: Calcium [Mass/Vol] 9.8 mg/dL 8.6 - 10. 4 mg/dL [facility] Phone: Chloride [Moles/Vol] 105 mmol/L 98 - 10 7 mmol/L [employer] Phone: CO2 [Moles/Vol] 27 mmol/L 20 - 31 mmol/L [facility] Phone: Creatinine [Mass/Vol] 0.45 mg/dL Low 0.50 - 0.90 mg/dL [facility] Phone: Free PSA/Total PSA [Mass fraction] 7.7 g/dL 6.4 - 8.3 g/dL [facility] Phone: GFR NOT REPORTED >60 mL/min [facility] Phone: GFR Non- Pediatric GFR requires additional information. Refer to NKDEP website for calculator. >60 mL/min [facility] Phone: Glucose [Mass/Vol] 103 mg/dL High 70 - 99 mg/dL [facility] Phone: Interpretation and review of laboratory results Abnormal [facility] Phone: Potassium [Moles/Vol] 4.4 mmol/L 3.7 - 5.3 mmol/L [facility] Phone: Sodium [Moles/Vol] 141 mmol/L 135 - 144 mmol/L [facility] Phone: Urea nitrogen (BldV) [Mass/Vol] 10 mg/dL 6 - 20 mg/dL [employer] Phone: Urea nitrogen/Creatinine (Bld) [Mass ratio] 22 High [employer] Phone: FTI RATIOOrdered By: Louise Mccullough on 10-01-2020 Free Thyroxine Index 2.1 ug/dL 1.4 - 3 .1 ug/dL [employer] Phone: Insulin, totalOrdered By: Do paulino Mccullough on 10-01-2020 Insulin 25.6 mU/L [employer] Phone: Insulin Comment 1100 [facility] Work Phone: Insulin Reference Range: [employer] Phone: Comment on above: Fastin.6-24.9 30 min: 20-112 60 min: 29-88 90 min: 26-84 120 min: 22-79 [employer] Phone: Laboratory - Chemistry and C hemistry - challengeOrdered By: Louise Mccullough on 10-01-2020 GFR/1.73 sq M.predicted MDRD (S/P/Bld) [Vol rate/Area] [employer] Phone: Comment on above: Average GFR for <20 years old not available. Chronic Kidney Disease: <60 mL/min/1.73sq m Kidney failure: <15 mL/min/1.73sq m eGFR calculated using average adult body mass. Additional eGFR calculator available at: http://www.Socialmoth.Damballa/multiple_crcl_2012.htm Stage 1: Some kidney damage normal GFR Stage 2: Mild kidney damage GFR 60-89 Stage 3: Moderate kidney damage GFR 30-59 Stage 4: Severe kidney damage GFR 15-29 Stage 5: Severe kidney damage GFR <15 ESRD - chronic treatment by dialysis or transplant Lipid PanelOrdered By: Morena Mccullough on 10-01-2020 Cholesterol [Mass/Vol] 150 mg/dL <200 [facility] Phone: Comment on above: Cholesterol Guidelines: <200 Desirable 200-240 Borderline >240 Undesirable Cholesterol in HDL [Mass/Vol] 57 mg/dL >40 [employer] Phone: Comment on above: HDL Guidelines: <40 Undesirable 40-59 Borderline >59 Desirable Cholesterol in LDL [Mass/Vol] 78 mg/dL 0 - 130 mg/dL [employer] Phone: Comment on above: LDL Guidelines: <100 Desirable 100-129 Near to/above Desirable 130-159 Borderline >159 Undesirable Direct (measured) LDL and calculated LDL are not interchangeable tests. Cholesterol in VLDL [Mass/Vol] NOT REPORTED 1 - 30 mg/dL [employer] Phone: Cholesterol.total/Chol esterol in HDL [Mass ratio] 2.6 {ratio} <5 [employer] Phone: Triglyceride [Mass/Vol] 73 mg/dL <150 [employer] Phone: Comment on above: Triglyceride Guidelines: <150 Desirable 150-199 Borderline 200-499 High >499 Very high Based on AHA Guidelines for fasting triglyceride, January 2012. [employer] Phone: No Panel InformationOrdered By: Louise Mccullough on 10-01-2020 [employer] Phone: [employer] Phone: T3, UptakeOrdered By: Kj Mccullough on 10-01-2020 Thyroxine Uptake 27.66 % 22.5 - 37.0 % [employer] Phone: [employer] Phone: [id number] By: Louise Mccullough on 10-01-2020 T4 [Mass/Vol] 7.5 ug/dL 4.5 - 10.9 ug/dL [employer] Phone: TSH without ReflexOrdered By : Louise Mccullough on 10-01-2020 TSH Qn 2.23 m[IU]/L [employer] Phone: No Panel InformationOrdered By: Thierry Braun [...] intact. 2. No acute fracture or dislocation. [employer] Phone: EXAMINATION: TWO XRA Y VIEWS OF [...] acute fracture or dislocation. No marginal erosions. [employer] Phone: Leeroy, pn Incoming Radiant Results From [employer] - 08/26/2020 12:30 PM EDT EXAMINATION: TWO [...] intact. 2. No acute fracture or dislocation. [employer] Phone: Basic Metabolic Panelon 02- Anion gap [Moles/Vol] 10 mmol/L 9 - 17 mmol/L [employer] Phone: Bun/Cre Ratio 16 [employer] Work Phone: Calcium [Mass/Vol] 9.9 mg/dL 8.4 - 10. 2 mg/dL [employer] Phone: Chloride [Moles/Vol] 101 mmol/L 98 - 10 7 mmol/L [employer] Phone: CO2 [Moles/Vol] 27 mmol/L 20 - 31 mmol/L [employer] Phone: Creatinine [Mass/Vol] 0.61 mg/dL 0.5 - 0.9 mg/dL [employer] Phone: GFR NOT REPORTED >60 mL/min [employer] Phone: GFR Non- Pediatric GFR requires additional information. Refer to NKDEP website for calculator. >60 mL/min [employer] Phone: Glucose [Mass/Vol] 77 mg/dL 60 - 100 mg/dL [employer] Phone: Potassium [Moles/Vol] 4.3 mmol/L 3.6 - 4.9 mmol/L [employer] Phone: Sodium [Moles/Vol] 138 mmol/L 135 - 144 mmol/L [employer] Phone: Urea nitrogen [Mass/Vol] 10 mg/dL 5 - 18 mg/dL [employer] Phone: CBC Auto Differentialon 05-30 Basophils (Bld) [#/Vol] 0.04 10*3/uL [employer] Phone: Basophils/100 WBC (Bld) 0 % 0 - 2 % [employer] Phone: Differential Type NOT REPORTED [employer] Phone: Eosinophils (Bld) [#/Vol] 0.14 10*3/uL [employer] Phone: Eosinophils/100 WBC (Bld) 1 % 1 - 4 % [employer] Phone: Erythrocyte distribution width (RBC) [Ratio] 13.1 % 11.8 - 14.4 % [employer] Phone: Hematocrit (Bld) [Volume fraction] 41.6 % 36.3 - 47.1 % [employer] Phone: Hemoglobin (Bld) [Mass/Vol] 13.5 g/dL 11.9 - 15.1 g/dL [employer] Phone: Immature granulocytes (Bld) [#/Vol] 0 % 0 [employer] Phone: Immature granulocytes (Bld) [#/Vol] 10*3/uL [employer] Phone: Interpretation and review of laboratory results Abnormal [employer] Phone: Lymphocytes (Bld) [#/Vol] 2.13 10*3/uL [employer] Phone: Lymphocytes/100 WBC (Bld) 21 % Low 25 - 45 % [employer] Phone: MCH (RBC) [Entitic mass] 28.2 pg 25 - 35 pg [employer] Phone: MCHC (RBC) [Mass/Vol] 32.5 g/dL 28.4 - 34.8 g/dL [employer] Phone: MCV (RBC) [Entitic vol] 87.0 fL 78 - 102 fL [employer] Phone: Monocytes (Bld) [#/Vol] 0.95 10*3/uL [employer] Phone: Monocytes/100 WBC (Bld) 9 % High 2 - 8 % [employer] Phone: Platelet mean volume (Bld) [Entitic vol] 10.9 fL 8.1 - 13.5 fL [employer] Phone: Platelets (Bld) [#/Vol] 262 10*3/uL [employer] Phone: Platelets (Bld) [#/Vol] NOT REPORTED [employer] Phone: RBC (Bld) [#/Vol] 4.78 10*6/uL 3.95 - 5.1 1 m/uL [employer] Phone: RBC morphology finding Nom (Bld) NOT REPORTED [employer] Phone: Segmented neutrophils/100 WBC (Bld) 69 % High 34 - 64 % [employer] Phone: Segs Absolute 6.97 [employer] Work Phone: WBC (Bld) [#/Vol] 0.0 10*3/uL 0.0 per 10 0 WBC [employer] Phone: WBC (Bld) [#/Vol] 10.3 10*3/uL [employer] Phone: WBC Morphology NOT REPORTED [facility] Work Phone: D-dimer, quantitativeon - D-Dimer, Quant 0.33 [employer] [facility] [employer] Work Phone: Comment on above: When combined [...] predicted among non-blacks MDRD (S/P/Bld) [Vol rate/Area] [employer] Phone: Comment on above: Stage 1: Some [...] body mass. Additional eGFR calculator available at: http://www.Decisionlink/multiple_crcl_2012.htm Troponinon 06-13-2020 Troponin I.cardiac [Mass/Vol] NOT REPORTED [employer] Phone: Troponin T.cardiac [Mass/Vol] NOT REPORTED <0.03 ng/mL [employer] Phone: Troponin, High Sensitivity <6 0 - 14 ng/L [employer] Phone: Comment on above: High Sensitivity Troponin values cannot be compared with other Troponin methodologies. Patients with high levels of Biotin oral intake (i.e >5mg/day) may have falsely decreased Troponin levels. Samples collected within 8 hours of biotin intake may require additional information for diagnosis. XR CHEST PORTABLEon 06-13-19 Le[employer]oy, Mhpn Incoming Radiant Results From [email or web address] - 06/13/2020 2:05 PM EST EXAMINATION: ONE [...] grossly intact. IMPRESSION: No acute cardiopulmonary pathology. [employer] Phone: EXAMINATION: ONE XRA Y VIEW OF [...] structures and soft tissues are grossly intact. [employer] Phone: No acute cardiopulmonary pathology. [employer] Phone: XR FOOT LEFT (MIN 3 VIEWS)on 06-13-2020 Erythrocyte distribution width (RBC) [Ratio] Postop changes as above. Hardware intact. No acute disease. [employer] Phone: EXAMINATION: THREE XRAY VIEWS OF THE LEFT FOOT 06/13/2020 3:34 pm COMPARISON: None. HISTORY: ORDERING SYSTEM PROVIDED HISTORY: pain TECHNOLOGIST PROVIDED HISTORY: pain FINDINGS: 2 screws transfix the medial malleolus and 2 screws transfix the talus. Cortical margins intact. Alignment anatomic. Soft tissues unremarkable. [employer] Phone: Leeroy, Mhpn Incoming Radiant Results From [employer] - 06/13/2020 3:46 PM EST EXAMINATION: THREE XRAY VIEWS OF THE LEFT FOOT 06/13/2020 3:34 pm COMPARISON: None. HISTORY: ORDERING SYSTEM PROVIDED HISTORY: pain TECHNOLOGIST PROVIDED HISTORY: pain FINDINGS: 2 screws transfix the medial malleolus and 2 screws transfix the talus. Cortical margins intact. Alignment anatomic. Soft tissues unremarkable. IMPRESSION: Postop changes as above. Hardware intact. No acute disease. [employer] Phone: HCG,URINEon 02-02-2020 Beta HCG ( test) Ql (U) Negative Normal Negative [facility] Comment on above: Result Comment: POCT Performed By: #### H CGU #### [facility] [address] [place] [address] BASIC METABOLIC PANELon 10-0 Anion gap [Moles/Vol] 16 mmol/L Normal 10 - 30 [facility] Comment on above: Performed By: #### B MP ####[facility] [place] [address] Calcium [Mass/Vol] 9.3 mg/dL Normal 8.5 - 10.7 [facility] Comment on above: Performed By: #### B MP ####[facility] [place] [address] Chloride [Moles/Vol] 101 mmol/L Normal 98 - 107 [facility] Comment on above: Performed By: #### B MP ####[facility] [place] [address] Creatinine [Mass/Vol] 0.55 mg/dL Normal 0.50 - 0.90 [facility] Comment on above: Performed By: #### B MP ####[facility] [place] [address] Glucose [Mass/Vol] 116 mg/dL High 74 - 99 [facility] Comment on above: Performed By: #### B MP ####[facility] [place] [address] HCO3 (Bld) [Moles/Vol] 23 mmol/L Normal 18 - 27 [facility] Comment on above: Performed By: #### B MP ####[facility] [place] [address] Potassium [Moles/Vol] 3.9 mmol/L Normal 3.5 - 5.3 [facility] Comment on above: Performed By: #### B MP ####[facility] [place] [address] Sodium [Moles/Vol] 136 mmol/L Normal 136 - 145 [facility] Comment on above: Performed By: #### B MP ####[facility] [place] [address] Urea nitrogen [Mass/Vol] 11 mg/dL Normal 6 - 23 [facility] Comment on above: Performed By: #### B MP ####[facility] [address] BLOOD CULTURE, BACTERIALon 1 BLOOD CULTURE, BACTERIAL PATIENT: BLANKA FARIAS LOCATION: [address]#: [id number] : [birth year] AGE: SEX: F ORDERED BY: [place] NORTON SOURCE: Blood COLLECTED: 01/30/20 05:50 ANTIBIOTICS AT ERICA.: RECEIVED : 01/30/20 17:30 SITE: R E S U L T S BLOOD CULTURE, BACTERIAL FINAL 02/04/20 17:42 No Growth at 1 days No Growth at 2 days No Growth at 3 days No Growth at 4 days NO GROWTH - FINAL REPORT Normal [facility] Comment on above: Performed By: #### B [facility] #### [facility] [address] [place] [address] CBC AND DIFFERENTIALon 01-29 % AUTOMATED IMMATURE GRAN 0.7 % Normal 0.0 - 1.0 [facility] Comment on above: Result Comment: Sabine ture Granulocyte Count (IG) includes promyelocytes, myelocytes and metamyelocytes but does not include bands. Percent differential counts (%) should be interpreted in the context of the absolute cell counts (cells/L). Performed By: #### C BCDF ####[facility] [place] [address] Basophils (Bld) [#/Vol] 0.03 10*3/uL Normal 0.00 - 0.10 [facility] Comment on above: Performed By: #### C BCDF ####[facility] [place] [address] Basophils/100 WBC (Bld) 0.1 % Normal 0.0 - 1.0 [facility] Comment on above: Performed By: #### C BCDF ####[facility] [place] [address] Erythrocyte distribution width (RBC) [Ratio] 12.4 % Normal 11.5 - 14.5 [facility] Comment on above: Performed By: #### C BCDF ####[facility] [place] [address] Hematocrit (Bld) [Volume fraction] 40.0 % Normal 36.0 - 46.0 [facility] Comment on above: Performed By: #### C BCDF ####[facility] [place] [address] Hemoglobin (Bld) [Mass/Vol] 13.3 g/dL Normal 12.0 - 16.0 [facility] Comment on above: Performed By: #### C BCDF ####[facility] [place] [address] Lymphocytes (Bld) [#/Vol] 1.64 10*3/uL Low 1.80 - 4.80 [facility] Comment on above: Performed By: #### C BCDF ####[facility] [place] [address] Lymphocytes/100 WBC (Bld) 7.8 % Normal 28.0 - 48.0 [facility] Comment on above: Performed By: #### C BCDF ####[facility] [facility] [place] [address] MCHC (RBC) [Mass/Vol] 33.3 g/dL Normal 31.0 - 37.0 [facility] Comment on above: Performed By: #### C BCDF ####[facility] [facility] [place] [address] MCV (RBC) [Entitic vol] 89 fL Normal 78 - 102 [facility] Comment on above: Performed By: #### C BCDF ####[facility] [facility] [place] [address] Monocytes (Bld) [#/Vol] 1.06 10*3/uL High 0.10 - 1.00 [facility] Comment on above: Performed By: #### C BCDF ####[facility] [facility] [place] [address] Monocytes/100 WBC (Bld) 5.1 % Normal 3.0 - 9.0 [facility] Comment on above: Performed By: #### C BCDF ####[facility] [facility] [place] [address] Neutrophils (Bld) [#/Vol] 18.05 10*3/uL High 1.20 - 7.70 [facility] Comment on above: Performed By: #### C BCDF ####[facility] [facility] [place] [address] Neutrophils/100 WBC (Bld) 86.3 % Normal 33.0 - 69.0 [facility] Comment on above: Performed By: #### C BCDF ####[facility] [place] [address] Platelets (Bld) [#/Vol] 325 10*3/uL Normal 150 - 400 [facility] Comment on above: Performed By: #### C BCDF ####[facility] [place] [address] RBC (Bld) [#/Vol] 4.50 x10E12/L Normal 4.10 - 5.20 [facility] Comment on above: Performed By: #### C BCDF ####[facility] [place] [address] WBC (Bld) [#/Vol] 20.9 10*3/uL High 4.5 - 13.5 [facility] Comment on above: Performed By: #### C BCDF ####[facility] [place] [address] Consult-Medicineon 0 Consult-Medicine Service: Service: Medicine Consult: [...] eager to return home. Patient is from [place] so no chart for comparison. 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 Objective Data: Objective Information: T PRBPSpO2 Value36.61204040/7294% Date/Time01/29 5: 5: 5: 5: 5:29 Range(36.1C [...] 31-Jan-2020 08:12 by Thierry Braun (DPM) Normal [facility] Discharge Planning [id number] 1 Discharge Planning Note2 Discharge Planning: [facility] [place] of Choice Explainedyes Anticipated Discharge [id number] Discharge Planning 01/30/2020 0925: Transitional Montessori Toddler Teacher Note: Plan of care discussed in Interdisciplinary [...] and patient's mom agreeable. Referral sent to [facility] via [employer]. Faye Crowe RN TCC Assessment: Discharge Planning Assessment [id number] Discharge Planning Assessment Completed byFaye Crowe RN TCC Primary Contact Name and NumberKayleigh-laurence(1) Stated Reason for Admissionankle surgery(2) Arrived FromOR (2) PCPDr. Louise Mccullough [facility] Medication Adherence/Afford/Obtai nyes InsuranceMMO Super Med Resource/Environmental Concernsnone(2) Anticipated Transition [place](2) Services Anticipated at Transitionnone(2) Electronic Signatures: Faye Corwe (CELIA) (Signed 30-Jan-2020 11:39) Authored: Discharge Planning, Assessment Last Updated: 30-Jan-2020 11:39 by Faye Crowe (CELIA) References: 1. Data Referenced From Patient Profile - Preop v2 29-Jan-2020 13:35 2. Data Referenced From Patient Profile - Pediatric v2 29-Jan-2020 19:41 Normal [facility] Discharge [id number] Discharge Profile2 Discharge Orders: Anticipated Discharge Date: Anticipated Discharge [id number] Hospital Providers: Provider RoleProvider Name Thierry Jaffe [...] Care Services Needed: yes Home Care Agency: [facility] [phone] Skilled Disciplines Ordered: RN/HEAVY EQUIPMENT DIESEL MECHANIC, PT Face to Face Encounter Completed: yes [...] About Discharge OrdersThierry Braun Electronic Signatures: Nanci Cleary (GERARDO (Fellow)) (Signed 30-Jan-2020 10:47) Authored: Discharge Orders, Hospital Course (Home Care/Gold Form), Provider FINAL REVIEW of Orders, Gold Form - Retail Business Analyst Summary Thierry Braun) (Signed 30-Jan-2020 11:45) Authored: Home Care Orders, Provider FINAL REVIEW of Orders Faye Crowe (RN) (Signed 30-Jan-2020 11:33) Authored: Home Care Orders, Provider FINAL REVIEW of Orders Last Updated: 30-Jan-2020 11:45 by Thierry Braun) Normal [facility] Admission Risk Screen - Pedi atricon 01-29-2020 [...] Able to be Assessed for Learningyes Educational [id number] grade Factors Influence Readiness to Learnnone, ready to learn Factors Impact Ability to Learncognitive limitations Devices/Methods Used to Communicatenone Learning Preferencesverbal instruction Cultural Considerationsnone Developmental Considerationsnone Buddhist Considerationsnone Other Learnersmother Learning Assessment (Other Learner): Other learner availableyes Other Learner is Able to be Assessed for Learningyes Learnermother Factors Influencing Readiness to Learnnone, ready to learn Factors that Impact Ability to Learnnone Devices/Methods Used to Communicatenone Learning Preferencesverbal instruction Cultural Considerationsnone Developmental Considerationsnone Buddhist Considerationsnone Nutrition Risk Screen: Nutrition Screen forpediatric patient Nutrition Risk Screen (2 or more indicators, Order Nutrition Consult)no indicators present Nutrition Consult needed this visitno Can Patient Participate in Room Serviceyes Pain Screen: Pain Scalenumerical 0-10 (1) Pain Scale Educationteaching provided (1) Teaching Provided PedsPain Management PI sheet 684 Current Pain Level0 = None Acceptable Pain [...] Spiritual Screen: Are there any cultural, spiritual, amish practices/values/needs that are important for us to knowno [place] Suicide Peds: Screen patients 10 yo and [...] to do anything to end your lifeno [place] Suicide Risklow Optional Screens: Significant Indicatiors: Significant Indicators: Complete Electronic Signatures: Carmel Muñoz) (Signed 29-Jan-2020 19:41) Authored: Admission Screens, Pressure Injury, Optional Screens Last Updated: 29-Jan-2020 19:41 by Carmel Muñoz (CELIA) References: 1. Data Referenced From Patient Profile - Preop v2 29-Jan-2020 13:35 Normal [facility] CORONAVIRUS 2019, SCREEN ASY MPTOMATICon 01-29-2020 CORONAVIRUS 2019,PCR NOT DETECTED Normal Not Detected [facility] Comment on above: Result Comment: This assay is designed to detect the RdRp gene of SARS-CoV-2 via nucleic acid amplification. A Not Detected result does not preclude COVID-19 infection since the adequacy of sample collection and/or low viral burden may result in presence of viral nucleic acids below the clinical sensitivity of this test method. Fact sheet for providers: www.fda.gov/media/992108/download Fact sheet for patients: www.Ourcast.gov/media/420402/download This test has received FDA Emergency Use Authorization (EUA) and has been verified by [facility]. This test is only authorized for the duration of time that circumstances exist to justify the authorization of the emergency use of in vitro diagnostic tests for the detection of SARS-CoV-2 virus and/or diagnosis of COVID-19 infection under section 564(b)(1) of the Act, 21 U.S.C. 360bbb-3(b)(1), unless the authorization is terminated or revoked sooner. [facility] is certified under CLIA-88 as qualified to perform high complexity testing. Testing is performed in the [facility] laboratory located at [address] [place] [address]. Performed By: #### C OVSC #### [place] [address] Lab Specimen Source Nasal, Nasopharyngeal Normal [facility] Comment on above: Performed By: #### C OVSC #### [address] Surgical Pathologyon 01-29-2020 [facility] Surgical Pathology Name BLANKA FARIAS Pathologist: THIERRY FONSECA MD Date of Procedure: 01/29/2020 Date Received: 02/01/2020 Date Reported 02/05/2020 Submitting Physician: THIERRY BRAUN DPM Location: [facility] Surg Other External # FINAL DIAGNOSIS A. [...] No grossly necrotic bone is identified. A traveling representative section is submitted in one cassette following decalcification. N Gross dissection performed at: [facility] Department of Pathology [address] [place] [address] cjn/02/01/2020 [facility] Department of Pathology [address] [place] [address] Normal [facility] Comment on above: Performed By: #### G SP ####[facility] Surgical [id number] [place] [address] Operative Reports - [facility] 01-29-2020 [place] [address] Patient Name: BLANKA FARIAS : 2000 Date of Service: 01/29/2020 Patient Location: [facility] [id number] Patient Type: O Surgeon: Thierry Braun DPM Report Type: Operative Reports LOCATION: [facility]. SURGEON: Thierry Braun DPM MEAT CUTTING TEACHER(S): 1. Nanci Cleary DPM PGY-5 2. Az [...] options. She was sent to me from [place], [place] for second opinion, and the patient [...] distal medial malleolus, and we did a [id number] repair of the ligament, keeping it tight. [...] make a contact in her area in [place], [place] to do some followup. Thierry Bruan DPM EST TT: 01/31/2020 09:56 AM EST DICTATION NUMBER: [id number] HANY JOB NUMBER: [id number] CC: LOUISE MCCULLOUGH Electronic Signatures: Thierry Braun (GERARDO) (Signed on 05-Feb-2020 06:35) Authored Unsigned, Draft (SYS GENERATED) (Entered on 31-Jan-2020 09:56) Entered Last Updated: 05-Feb-2020 06:35 by Thierry Braun) Normal [facility] Patient Profile - Pediatric v2on 01-29-2020 Patient [...] Concernsnone Primary Caregivermother Lives Withmother [facility] Anticipated at Transitionnone School/Ajjhnpc01ev grade/high school senior Concerns Regarding School Performance/Peer [...] Profile - Preop v2 29-Jan-2020 13:35 Normal [facility] Patient Profile - Preop v2on 01-29-2020 Patient Profile - Preop v2 Profile: Initial Info: How to be AddressedMartina Spoken Language PreferredEnglish Are you currently using the Personal Electronic Health Record or Living[facility] MediaSELECT [facility] Are you interested in learning more about [facility] for the management of your healthdeclined Stated [...] Learning Preferencesverbal instruction Cultural Considerationsnone Developmental Considerationsnone Buddhist Considerationsnone Other learner availableno [place] RiskPatient location auto qualifies him/her for HIGH RISK. Are there any cultural, spiritual, amish practices/values/needs that are important for us to [...] Updated: 29-Jan-2020 14:14 by Sandrine Jack) Normal [facility] Preop Checkliston 01-29-2020 Preop Checklist Preop Checklist: Preop Checklist: Arrival [id number] Arrival Time11:29 Procedure TypeL foot osteotomy NPO [id number] 00:00 ID Band Onyes Consent Signedyes H&P [...] Updated: 29-Jan-2020 13:27 by Sandrine Jack) Normal [facility] MRI ANKLE LEFT WO CONTRASTon 1014-2019 1. 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 2. Mild degenerative changes of the tibiotalar joint. 3. No acute fracture or dislocation. No acute ligamentous injury. [facility], [place] EXAMINATION: MRI OF THE LEFT ANKLE [...] collection identified within the visualized soft tissues. [facility] [place], [place] Leeroy, pn Incoming Radiant Results From [email or web address] - 02/09/2019 9:18 AM EDT EXAMINATION: MRI [...] fracture or dislocation. No acute ligamentous injury. [place], [place] Vital Signs Date Time Vital Sign Value Performing Clinician Roseliai rodolfo 10-07-2021 15:08-0400 Body height 172.7 cm Chuy Jacobson MD Work Phone: [facility] 10-07-2021 15:08-0400 Body mass index (BMI) [Percentile] Per age and sex 92.12 % Chuy Jacobson MD Work Phone: [facility] 10-07-2021 15:08-0400 Body mass index (BMI) [Ratio] 28.89 kg/m2 Chuy Jacobson MD Work Phone: [facility] 10-07-2021 15:08-0400 Body temperature 97.81 [degF] Chuy Jacobson MD Work Phone: [facility] 10-07-2021 15:08-0400 Body weight 86.18 kg Chuy Jacobson MD Work Phone: [employer] 10-07-2021 15:08-0400 Diastolic blood pressure 79 mm[Hg] Chuy Jacobson MD Work Phone: [facility] [employer] 10-07-2021 15:08-0400 Heart rate 99 /min Chuy Jacobson MD Work Phone: [facility] [employer] 10-07-2021 15:08-0400 Respiratory rate 16 /min Chuy Jacobson MD Work Phone: [facility] [employer] 10-07-2021 15:08-0400 SaO2% (BldA) [Mass fraction] 100 % Chuy Jacobson MD Work Phone: [facility] [employer] 10-07-2021 15:08-0400 Systolic blood pressure 125 mm[Hg] Chuy Jacobson MD Work Phone: [facility] [employer] 06-13-2020 16:30-0500 BP Diastolic 71 mm[Hg] [employer] Work Phone: 06-13-2020 16:30-0500 BP Systolic 148 mm[Hg] [employer] Work Phone: 06-13-2020 16:30-0500 Pulse (Heart Rate) 61 /min [employer] Work Phone: 06-13-2020 16:30-0500 Pulse Oximetry 97 % [facility] Work Phone: 06-13-2020 16:30-0500 Respiratory Rate 20 /min [facility] Work Phone: 06-13-2020 13:53-0500 Body Temperature 98.91 [degF] Faye [employer] Work Phone: 06-13-2020 13:53-0500 Body weight 99.79 kg [employer] Work Phone: 01-26-2019 18:28-0400 Body Temperature 97.3 [degF] Louise bruna [place], [place] 01-26-2019 18:28-0400 BP Diastolic 81 mm[Hg] Louise Hobruna [place], [place] 01-26-2019 18:28-0400 BP Systolic 176 mm[Hg] [place] 01-26-2019 18:28-0400 Pulse (Heart Rate) 98 /min [place] 01-26-2019 18:28-0400 Pulse Oximetry 98 % [place] 01-26-2019 18:28-0400 Respiratory Rate 15 /min [place], [place] Encounters Encounter Date Encounter Type Care Provider Facility Start: 06-27-2023 End: 06-30-2023 ambulatory LOUISE Schneider Bruna [facility] Start: 06-27-2023 End: 06-29-2023 Subsequent hospital visit by physician Louise Mccullough MD Work Phone: [facility] Start: 03-14-2023 End: 03-15-2023 ambulatory Kayleigh Payan PA-C Facility[facility] Start: 02-20-2023 ambulatory Louise Mccullough MD [facility] Start: 01-09-2023 End: 01-10-2023 [facility] Start: 01-09-2023 End: 01-10-2023 Encounter for other preprocedural examination [facility] Start: 01-03-2023 End: 01-04-2023 ambulatory Louise Mccullough MD Facility:[facility] Start: 11-29-2022 End: 11-30-2022 ambulatory Louise Mccullough MD Facility[facility] Start: 09-12-2022 End: 09-15-2022 [facility] Start: 09-06-2022 ambulatory Larry Huff MD Facilit y:[facility] Start: 09-04-2022 End: 09-05-2022 ambulatory Larry Huff MD Facility:[facility] Start: 08-29-2022 End: 08-30-[address] [facility] Start: 08-29-2022 End: 08-29-2022 Subsequent hospital visit by physician Louise Mccullough MD Work Phone: [facility] Start: 06-20-2022 End: 06-22-2022 Subsequent hospital visit by physician Isaias Mejia Dr Room 4 [facility] Comment on above: Pain Start: 06-14-2022 End: 06-15-2022 ambulatory Larry Huff MD Facility:[facility] Start: 05-17-2022 End: 05-18-2022 ambulatory Larry Huff MD Facility:[facility] Start: 03-09-2022 End: 03-09-2022 ambulatory LOUISE MCCULLOUGH Facility:[facility] Start: 03-09-2022 End: 03-09-2022 Patient encounter procedure [...] by physician Isaias Mejia Dr Room 2 [facility] Comment on above: Right wrist pain Start: 02-19-2022 End: 02-19-2022 Subsequent hospital visit by physician Louise Mccullough MD Work Phone: [facility] Start: 02-07-2022 End: 02-07-2022 ambulatory RK RENDON Facility:[facility] Start: 02-07-2022 End: 02-07-2022 Patient encounter procedure [...] patient visit Chuy Jacobson MD Work Phone: [facility] ED Comment on above: Elevated lactic acid level (Primary Dx); Leukocytosis, unspecified type; Abscess; History of miscarriage Start: 07-20-2021 End: 07-22-2021 Subsequent hospital visit by physician Isaias Ultrasound Room [facility] Ultrasound Comment on above: Urinary tract infect ion without hematuria, site unspecified; Retention of urine, unspecified Start: 07-15-2021 End: 07-15-2021 Subsequent hospital visit by physician Louise Mccullough MD [facility] Start: 07-12-2021 End: 07-12-2021 Subsequent hospital visit by physician Louise Mccullough MD [facility] Phone[facility] Start: 06-20-2021 Transcribe Orders Danni Vogel MA [facility], Neuroscience Comment on above: Low [...] End: 08-28-2020 Subsequent hospital visit by physician [facility] Xr Dr Room 2 [facility] Comment on above: Leach syndrome, le ft; Osteochondritis dissecans of ankle, left Start: 06-13-2020 Emergency department patient visit [facility] Start: 06-13-2020 End: 06-13-2020 Emergency department patient visit Faye Go Work Phone: [facility] ED Comment on above: Trapezius strain, le ft, initial encounter (Primary Dx) Start: 12-15-2019 End: 12-17-2019 Subsequent hospital visit by physician [facility] Cat Scan Room [facility] CT Scan Comment on above: Arrived Start: 02-09-2019 End: 02-11-2019 Subsequent hospital visit by physician [facility] Mri Scanner [facility] MRI Comment on above: Sprain of tibiofibul ar ligament of left ankle, sequela Start: 01-26-2019 End: 01-26-2019 Emergency department patient visit [facility] ED Comment on above: Acute left ankle [...] Phone: Start: 10-07-2021 Urinalysis microscopic only Chuy Jacobson MD Work Phone: Start: 10-07-2021 Urnls dip [...] DTaP/Tdap/Td vaccine (5 - Td or Tdap) [employer] Start: 10-25-2029 DTaP/Tdap/Td vaccine (5 - Td) DTaP/Tdap/Td vaccine (5 - Td) [employer] Work Phone: Start: 10-25-2029 DTaP/Tdap/Td vaccine (8 - Td or Tdap) DTaP/Tdap/Td vaccine (8 - Td or Tdap) [facility] Start: 10-25-2029 DTaP/Tdap/Td vaccine (8 - Td) DTaP/Tdap/Td vaccine (8 - Td) [facility] [place] Start: 11-27-2022 Influenza vaccination [facility] Start: 12-28-2021 Influenza vaccination [facility] Start: 11-27-2021 Influenza vaccination Flu vaccine (# 1) [facility] Start: 2021 Urine microalbumin profile DTAP,TDAP,TD (1 - Tdap) [facility] Start: 04-29-2021 DEPRESSION ASSESSMENT DEPRESSION ASS ESSMENT [facility] Start: 12-28-2020 Influenza vaccination [facility] Start: 2020 CHLAMYDIA SCREENING (18-24) CHLAMYDIA SCREENING (18-24) [facility] Start: 2020 GC (GONORRHEA) SCREE TEODORO (18-24) GC (GONORRHEA) SCREENING (18-24) [facility] Start: 2020 Hepatitis C screening Hepatitis C sc reen [facility] Start: 2020 HEPATITIS C SCREENING HEPATITIS C SC REENING [facility] Start: 2020 HIV SCREENING HIV SCREENING [facility] Start: 12-29-2019 Influenza vaccination Flu vaccine (# 1) [place] Start: 12-28-2018 Influenza vaccination Flu vaccine (# 1) [place] Start: 2018 Chlamydia screen Chlamydia screen [place], [place] Start: 2018 COVID-19 Vaccine (1) COVID-19 Vaccin e (1) [facility] Work Phone: Start: 2018 Meningococcal (ACWY) Vaccine (1 - 2-dose series) Meningococcal (ACWY) Vaccine (1 - 2-dose series) [place], [place] Start: 2018 Screening for Chlamy christiano trachomatis [facility] Start: 2017 HIV screen HIV screen [place], [place] Start: 2017 [facility] Start: 2017 HPV vaccine (1 - Fem mejia 3-dose series) HPV vaccine (1 - Female 3-dose series) [place], [place] Start: 2016 PEDS TO ADULT TRANSI TION ANNUAL ASSESSMENT PEDS TO ADULT TRANSITION ANNUAL ASSESSMENT [facility] Start: 07-30-2015 Varicella Vaccine (1 of 2 - 13+ 2-dose series) Varicella Vaccine (1 of 2 - 13+ 2-dose series) [place], [place] Start: 2014 COVID-19 Vaccine (1) COVID-19 Vaccin e (1) [facility] Work Phone: Start: 2014 Depression Screen Depression Screen [facility] Start: 2014 PEDS TO ADULT TRANSI TION INITIAL DISCUSSION PEDS TO ADULT TRANSITION INITIAL DISCUSSION [facility] Start: 2013 HPV vaccine (1 - 2-d ose series) HPV vaccine (1 - 2-dose series) [facility] Start: 2012 MENINGOCOCCAL B: Consider based on risk (1 of 2 - Risk Bexsero 2-dose series) MENINGOCOCCAL B: Consider based on risk (1 of 2 - Risk Bexsero 2-dose series) [facility] Start: 2009 DTaP/Tdap/Td vaccine (1 - Tdap) DTaP/Tdap/Td vaccine (1 - Tdap) [place] Start: 07-30-2007 COVID-19 Vaccine (1) COVID-19 Vaccin e (1) [facility] Start: 07-30-2003 Hepatitis A vaccine (1 of 2 - 2-dose series) Hepatitis A vaccine (1 of 2 - 2-dose series) [facility] Start: 07-30-2003 Measles,Mumps,Rubell a (MMR) vaccine (1 of 2 - Standard series) Measles,Mumps,Rubella (MMR) vaccine (1 of 2 - Standard series) [place] Start: 01-28-2003 COVID-19 Vaccine (#1) COVID-19 Vacci ne (#1) [facility] Start: 2002 Polio vaccine 0-18 ( 1 of 3 - 4-dose series) Polio vaccine 0-18 (1 of 3 - 4-dose series) [place] Start: 2002 HEPATITIS B (1 of 3 - 3-dose series) HEPATITIS B (1 of 3 - 3-dose series) [facility] Start: 2002 Hepatitis B Vaccine (1 of 3 - 3-dose primary series) Hepatitis B Vaccine (1 of 3 - 3-dose primary series) [place] Start: 2002 Hepatitis C screening Hepatitis C sc reete [facility] End: 10-07-2021 Culture, Anaerobic and Aerobic [facility] [employer] Phone: Comment on above: One Time for 1 Occur rences starting 10/07/2021 until 10/07/2021 End: 10-07-2021 Culture, Blood 1 [facility] [employer] Phone: Comment on above: One Time for 1 Occur rences starting 10/07/2021 until 10/07/2021 End: 07-15-2021 Culture, Urine [employer] Work Phone: Comment on above: Once for 1 Occurrenc es starting 07/15/2021 until 07/15/2021 End: 01-02-2022 Culture, Urine [facility] [employer] Phone: Comment on above: Once for 1 Occurrenc es starting 01/02/2022 until 01/02/2022 End: 02-19-2022 Culture, Urine [facility] [employer] Phone: Comment on above: Once for 1 Occurrenc es starting 02/19/2022 until 02/19/2022 End: 08-29-2022 Culture, Urine [facility] [employer] Phone: Comment on above: Once for 1 Occurrenc es starting 08/29/2022 until 08/29/2022 EKG 12 Lead EKG 12 Lead ECG STAT 06/13/2020 1:57 PM EST [employer] Phone: End: 10-01-2020 Hemoglobin A1c/Hemoglobin.total in Blood Hemoglobin A1C Lab Routine Once for 1 Occurrences starting 10/01/2020 until 10/01/2020 [employer] Phone: Comment on above: Once for 1 Occurrenc es starting 10/01/2020 until 10/01/2020 Hemoglobin A1c/Hemoglobin.total in Blood Hemoglobin A1C Lab Routine 10/01/2020 10:55 AM EDT [employer] Phone: [facility] Payers Date Payer Category Payer Medicaid [id number] 2022 Private Health Insurance [id number] .7.3.359070.315 2021 Unknown 2020 Medicaid [id number] [id number] .[id number] 2018 Unknown [id number] 1.2.840.014238.1.13.239.2 .7.3.620263.315 2014 Unknown [employer] M [employer] IAIN - EXCHANGE xxxxxxxxxxxx 2014-Present [phone] [address] [place] [address] xxxxxxxxxxxx 1.2.840.989384.1.13.239.2 .7.3.495699.315 2014 Unknown [employer]GE [employer]AGE xxxxxxxxxxx 2014-Present [phone] [address] [place] [address] xxxxxxxxxxx 1.2.840.421024.1.13.239.2 .7.3.544521.315 2014 Unknown [employer] [id number] 2014-Present [phone] [address] [place] [address] [id number] 1.2.840.999222.1.13.239.2 .7.3.440601.315 2002 Unknown [id number] 2.16.840.1.449156.3.579.2 .593 2002 Unknown [id number] 2.16.840.1.078331.3.579.2 .593 2002 Unknown [id number] 2.16.840.1.856265.3.579.2 .593 2002 Unknown [id number] 2.16.840.1.941879.3.579.2 .593 2002 Unknown [id number] 2.16.840.1.645841.3.579.2 .593 2002 Unknown [id number] 2.16.840.1.729967.3.579.2 .593 2002 Unknown [id number] 2.16.840.1.297689.3.579.2 .196 2002 Unknown [id number] 2.16.840.1.952764.3.579.2 .196 2002 Unknown [id number] 2.16.840.1.609188.3.579.2 .196 2002 Unknown [id number] 2.16.840.1.314548.3.579.2 .196 2002 Unknown [id number] 2.16.840.1.455978.3.579.2 .196 2002 Unknown [id number] 2.16.840.1.004149.3.579.2 .196 2002 Unknown [id number] 2.16.840.1.966317.3.579.2 .196 2002 Unknown [id number] 2.16.840.1.581141.3.579.2 .196 2002 Unknown [id number] 2.16.840.1.818932.3.579.2 .196 2002 Unknown [id number] 2.16.840.1.664772.3.579.2 .196 2002 Unknown [id number] 2.16.840.1.536428.3.579.2 .173 2002 Unknown [id number] 2.16.840.1.813586.3.579.2 .173 2002 Unknown [id number] 2.16.840.1.114867.3.579.2 .173 2002 Unknown [id number] 2.16.840.1.409677.3.579.2 .173 2002 Unknown [id number] 2.16.840.1.450823.3.579.2 .173 2002 Unknown [id number] 2.16.840.1.762505.3.579.2 .173 2002 Unknown [id number] 2.16.840.1.137861.3.579.2 .173 1979 Unknown [id number] 2.16.840.1.803782.3.579.2 .173 1959 Unknown [id number] 1.2.840.839148.1.13.239.2 .7.3.922094.315 1959 Unknown [id number] 1.2.840.161980.1.13.239.2 .7.3.138136.315 Social History Date Type Detail Facility Start: 03-11-2013 End: 01-26-2019 Tobacco smoking status RIIS Never smoker [place] Start: 01-26-2019 End: 10-15-2021 Alcohol intake No [place] Start: 2002 Sex Assigned At Not on file [place] Start: 03-11-2013 End: 01-26-2019 Tobacco use and exposure Never used [place] Start: 01-26-2019 End: 10-15-2021 Alcohol intake Current non-drinker of alcohol (finding) [place] Start: 09-27-2021 End: 03-09-2022 Exposure to SARS-CoV-2 (event) Not sure [place] Tobacco smoking status RIIS Tobacco smoking consumption unknown [facility] History of tobacco use Passive smoker [facility] Work Phone: Start: 10-15-2021 History of Social function [facility] Clinical Notes 10-07-2021 to 03-09-2022 Sharona Hoffman DPM - 03/09/2022 4:43 PM Mellisa Rendon DPM - 02/07/2022 11:39 AM EDTInstructions Note Date & Type Note Facility 03-09-2022 Note HNO ID: [id number] Author: Sharona Hoffman DPM Service: ? 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 Additional Modifying factor: What makes better / [...] PROT, URICACID, HBA1C, VITD25 in the last 06972 hours. X-ray reviewed from CD RIGHT ANKLE [...] face counseling and/o (more content not included)... 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 Additional Modifying factor: What makes better / [...] PROT, URICACID, HBA1C, VITD25 in the last 25682 hours. X-ray reviewed from CD RIGHT ANKLE [...] DPM documented in this encounter [facility] 02-07-2022 Note HNO ID: [id number] Author: Rk Rendon DPM Service: ? 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 Finley concerning abscess documented in this encounter [facility] Phone: Evaluation note Diagnosis Leach syndrome, left Osteochondritis dissecans of ankle, left documented in this encounter [employer] Phone: evaluation note* Diagnosis Low back pain, unspecified back pain laterality, unspecified chronicity, unspecified whether sciatica present- Primary [facility] Diagnosis Urinary tract infection without hematuria, site unspecified Retention of urine, unspecified documented in this encounter [employer] Phone: evaluation note* Diagnosis Elevated lactic acid level- Primary Other nonspecific abnormal serum enzyme levels Leukocytosis, unspecified type Abscess Cellulitis and abscess of unspecified site History of miscarriage Personal history of other genital system and obstetric disorders documented in this encounter [facility] Phone: evaluation note* Diagnosis 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 Chronic pain of right ankle [facility] Diagnosis Chronic pain of both ankles- Primary Altered gait Abnormality of gait 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 Disorder of bone and cartilage, unspecified Peroneal tendinitis of right lower extremity Other enthesopathy of ankle and tarsus 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, unspecified laterality [facility] Diagnosis Right wrist pain Pain in joint, forearm documented in this encounter [facility] Phone: evaluation note* Diagnosis Pain Generalized pain documented in this encounter [facility] Phone: reason for referral (narrative)* Consultation (Routine) - Pending Review Specialty Diagnoses / Procedures Referred By Contac t Referred To Contact Neurosurgery Diagnoses Low back pain, unspecified back pain laterality, unspecified chronicity, unspecified whether sciatica present Louise Mccullough MD [address] [place] [address] Joey Gillespie MD [address] [place] [address] Referral ID Status Reason Start Date Expiration Date V isits Requested Visits Authorized [id number] Pending Review 06/20/2021 06/20/2022 1 1 [facility] Reason for Referral Status Reason Specialty Diagnoses / Procedures Referred By Contact Referred To Contact Pending Review Radiology Diagnoses Sprain of tibiofibular ligament of left ankle, sequela Procedures MRI ANKLE LEFT WO CONTRAST Louise Mccullough MD [address] [place] [id number] Specialty Diagnoses / Procedures Referred By Asael t Referred To Contact Radiology Diagnoses Urinary tract infection without hematuria, site unspecified Retention of urine, unspecified Procedures US URINARY BLADDER LIMITED Dillon Wooten MD [address] [place] [address] Referral ID Status Reason Start Date Expiration Date Visits Re quested Visits Authorized Closed 07/17/2021 07/17/2022 1 1 Assessments Diagnosis Sprain of tibiofibular ligament of left ankle, sequela Diagnosis Acute left ankle pain- Primary Diagnosis Trapezius strain, left, initial encounter- Primary Advance Directives Documents on File Type Date Recorded Patient Vp Training Expl anation Advance Directives and Living Will Power of Motor Racer Documents on File Type Date Recorded Patient Vp Training Expl anation ACP-Advance Directive ACP-Power of Motor Racer Documents on File Type Date Recorded Patient Vp Training Expl anation Advance Directives and Living Will Power of Motor Racer Documents on File Type Date Recorded Patient Vp Training Expl anation ACP-Advance Directive ACP-Power of Motor Racer Summary Purpose Family History No Family History Records FoundNo Family History Records FoundNo Family History Records FoundNo Family History Records FoundNo Family History Records FoundNo Family History Records FoundNo Family History Records Found Hospital Course Note Send Summary: Discharge Summ precious Providers: Provider RoleProvider Name Thierry Ojeda Amolak PrimaryHoy, Douglas M AttendingThierry Braun Note Recipients: Louise Mccullough MD - [id number] [] Thierry Braun DPM Discharge: Summary: Admission [...] at Discharge: .Home Vital Signs: T PRBPSpO2 Value36.06421527/7294% Date/Time01/29 5:2910/3 5:291/3 5: 5: 5:29 Range(36.1C [...] posterior tibial tendon Surgeon: Thierry Braun Resident/Fellow/Other Messenger Office: Nanci Cleary PGY5 Anesthesia: General with regional [...] posterior tibial tendon Surgeon: Thierry Braun Resident/Fellow/Other Messenger Office: Nanci Cleary PGY5 Anesthesia: General with regional [...] through Care Everywhere. * Ankle Sprain: Teen (Malagasy) documented in this encounter* Instructions* Faye Go MD - 06/13/2020 Tylenol and/or Motrin as needed for any pain. Take Flexeril as needed for muscle spasms. Try [id number] ThermaCare patches or similar product as desired for comfort. Up with your primary care physician within 1 week if symptoms not resolved. Seek medical attention prior to this for any acute concerns. * Attachments The following attachments cannot be sent through Care Everywhere. * Upper Back: Exercises (Malagasy) documented in this encounter Additional Source Comments Reason for Visit (unrecogniz ed section and content) Status Reason Specialty Diagnoses / Procedures Referre d By Contact Referred To Contact Closed Radiology Diagnoses Sprain of tibiofibular ligament of left ankle, sequela Procedures [facility] MRI LOWER EXTREM JT, W/O CONTRAST Louise Mccullough MD [address] [place] [address] [facility] [address] [id number] Status Reason Specialty Diagnoses / Procedures Referre d By Contact Referred To Contact Closed Radiology Diagnoses Secondary osteoarthritis, left ankle and foot Osteochondritis dissecans, left ankle and joints of left foot Pain in left ankle and joints of left foot Procedures [facility] CT SCAN OF LEG CONTRAST Thierry Braun DPM [address] [place] [address] [facility] [address] Scan [address] [place] [address] Reason Comments Ankle Pain left ankle Reason [...] US URINARY BLADDER LIMITED Dillon Wooten MD [address] [place] [address] Referral ID Status Reason Start Date Expiration Date Visits Re quested Visits Authorized [id number] Closed 07/17/2021 07/17/2022 1 1 Reason Comments Abscess Tailbone, Onset 6 da ys ago, worse now Reason Comments Pain Specialty Diagnoses / Procedures Referred By Contact Referred To Contact Podiatry / ORTHOPAEDIC SURGERY Diagnoses Osteochondral defect, Foot pain *Hand carry XR and MRI Procedures TANIA ACUTE Louise Mccullough MD [address] [place] [address] Rk Rendon DPM [address] [place] [address] Referral ID Status Reason Start Date Expiration Date Visits Re quested Visits Authorized [id number] Closed 02/07/2022 04/28/2022 1 1 Reason Comments New Pain Specialty Diagnoses / Procedures Referred By Contac t Referred To Contact Podiatry / ORTHOPAEDIC SURGERY Diagnoses Encounter for general adult medical examination without abnormal findings RIGHT ANKLE (CONSULT FOR SURGERY) Procedures OFFICE/OUTPATIENT ESTABLISHED MOD MDM 30-39 MIN TANIA ACUTE Sharona Hoffman DPM [address] [place] [address] Sharona Hoffman DPM [address] [place] [address] Referral ID Status Reason Start Date Expiration Date Visits Re quested Visits Authorized [id number] Closed 03/09/2022 04/28/2022 1 1 INFORMATION SOURCE (unrecogn ized section and content) DATE CREATED AUTHOR 02/06/2020 [facility] DATE CREATED AUTHOR AUTHOR'S ORGANIZ ATION 06/14/2020 Mariah cook DATE CREATED AUTHOR AUTHOR'S ORGANIZ ATION 10/15/[address] [facility] DATE CREATED AUTHOR AUTHOR'S ORGANIZ ATION 03/10/2022 [facility] DATE CREATED AUTHOR AUTHOR'S ORGANIZ ATION 07/19/2022 [facility] DATE CREATED AUTHOR AUTHOR'S ORGANIZ ATION 03/14/2023 [facility] DATE CREATED AUTHOR AUTHOR'S ORGANIZ ATION 06/29/2023 [...] Care Teams (unrecognized sec tion and content) Security Compliance Engineer Relationship Specialty Start Date End Date Louise Mccullough MD [address] [place] [address] PCP - General Family Medicine 06/16/21 Security Compliance Engineer Relationship Specialty Start Date End Date Louise Mccullough MD [address] [place] [id number] PCP - General Family Medicine 03/18/20 Security Compliance Engineer Relationship Specialty Start Date End Date Louise Mccullough MD [address] [place] [address] PCP - General Family Medicine 03/18/20 Security Compliance Engineer Relationship Specialty Start Date End Date Louise Mccullough MD [address] [place] [id number] PCP - General Family Medicine 03/18/20 Security Compliance Engineer Relationship Specialty Start Date End Date Louise Mccullough MD [address] [place] [address] PCP - General Family Medicine 03/18/20 Security Compliance Engineer Relationship Specialty Start Date End Date Louise Mccullough MD [address] [place] [id number] PCP - General Family Medicine 03/18/20 Security Compliance Engineer Relationship Specialty Start Date End Date Louise Mccullough MD [address] [place] [phone] PCP - General 06/27/09 Security Compliance Engineer Relationship Specialty Start Date End Date Louise Mccullough MD [address] [place] [phone] PCP - General 06/27/09 Security Compliance Engineer Relationship Specialty Start Date End Date Louise Mccullough MD [address] [place] [phone] PCP - General Family Medicine 03/18/20 Security Compliance Engineer Relationship Specialty Start Date End Date Louise Mccullough MD [address] [place] [id number] PCP - General Family Medicine 03/18/20 Security Compliance Engineer Relationship Specialty Start Date End Date Louise Mccullough MD [address] [place] [phone] PCP - General Family Medicine 03/18/20 Scheduled [...] - Provider: Lin Arevalo RN) lidocaine-EPINEPHrine 1 %-1:331828 injection 20 mL (COMPLETED) 20 mL, IntraDERmal, [...] any alcohol or drug abuse patient.[facility] the event this information is protected by the Federal Confidentiality of Alcohol and Drug Abuse Patient Records regulations: The Federal rules restrict any use of the information to criminally investigate or prosecute any alcohol or drug abuse patient.[facility] FOR RECORDS PERTAINING TO PATIENTS WHO ARE [...] BE BASED ON THE PRIMARY CLINICAL RECORDS. [facility] provides no warranty or guarantee of the accuracy or completeness of information in this document.
[2023-07-19 14:48] LABS: Bilirubin Urine NEGATIVE (NEGATIVE); Blood Urine NEGATIVE (NEGATIVE); Clarity Urine CLEAR (CLEAR); Color Urine LT. YELLOW (YELLOW); Glucose Urine UA 100 mg/dL (NEGATIVE); Ketones Urine NEGATIVE (NEGATIVE); Leukocyte Esterase Urine NEGATIVE (NEGATIVE); Nitrite Urine NEGATIVE (NEGATIVE); Protein Urine NEGATIVE (NEG/TRACE); Specific Gravity Urine <=1.005 (1.005-1.025); Urobilinogen Urine 0.2 EU/dL (0.2-1.0)
[2023-07-19 15:48] LABS: Bacteria Urine NONE SEEN #/HPF (NONE SEEN); Cast Seen? NONE SEEN #/LPF (NONE SEEN); Crystals Seen? None Seen #/HPF (None Seen); Mucus Urine NONE SEEN (NONE SEEN); RBC Urine 0-2 #/HPF (0-2); Squamous Epithelial Cell Urine FEW #/LPF (NONE/RARE); WBC Urine 0-2 #/HPF (NONE SEEN)
== END 2023-07-19 13:27 | disposition home or self-care (01) ==
LOC: LAB 13:26
PROVIDERS: PCP Family Medicine; Visit Provider Family Medicine
DX: N39.0 Urinary tract infection, site not specified (principal)
CPT/HCPCS: 81001; 87086

== ENCOUNTER 2024-01-02 16:43 | Outpatient (OUT) | payer OTHER, SELFPAY ==
--- NOTE | 2024-01-02 16:48 | XR_ITS ---
The [address] [address] Patient Name: MARILEE MACKENZIE MRN: [id number] date: 2000 Sex: F Assigned Patient Location: [facility] Current Patient Location: Accession/Order Number: [id number] Exam Date: 01/02/2024 16:50 Report Date: 01/03/2024 06:57 At the request of: LOUISE LEMOS Procedure: XR ankle LT 2V PROCEDURE: XR ankle LT 2V HISTORY: Left ankle pain, M25.572 COMPARISON: XR ankle left 07/16/2021 FINDINGS: BONES:Mechanical fusion of the tibiotalar joint via anterior plate and multiple screws. No appreciable hardware fracture loosening. Small corticated ossification distal to the lateral malleolus favoring heterotopic bone formation or remote fracture fragment. SOFT TISSUES:Medial soft tissue swelling. EFFUSION:None visible. OTHER: Negative. XR/XR ankle LT 2V IMPRESSION: 1. Prior mechanical fusion of the ankle joint without evidence of hardware failure or change in alignment. There is been revision of the hardware since the prior study. 2. No appreciable acute abnormality. Electronically authenticated by: ARTEM WILLS Date: 01/03/2024 06:57
--- OUTSIDE RECORDS SUMMARY | 2024-01-02 17:03 | XMS_ITS | CCD ---
Author Organization [facility] Care Team Providers Care Drawer Upfitter Name Role Phone Louise Lemos Primary Care Provider 1988 LOUISE LEMOS Primary Care Unavailable Louise Lemos Primary Care Provider Louise Lemos MD Primary Care Provider Louise Lemos MD Primary Care Provider [phone] Louise Lemos MD Primary Care Provider Louise Lemos MD Primary Care Provider Louise Lemos MD Primary Care Provider [phone] Louise Lemos MD Primary Care Provider Louise Lemos MD Primary Care Provider LOUISE LEMOS Primary Care Unavailable SHARONA HOFFMAN Referring Unavailable RK RENDON Attending Unavailab LOUISE Collazo Referring Unavailable LOUISE LEMOS Primary Care Unavailable LOUISE LEMOS Primary Care Unavailable SHARONA HOFFMAN Referring Unavailable SHARONA HOFFMAN Attending Unavailable Louise Lemos MD Primary Care Provider [phone] LOUISE MUSTAFA Primary Care Unavailable HOY ., DR GIL Consulting Unavailable HOY ., DR GIL Admitting Unavailable HOY ., DR GIL Attending Unavailable GAGE JACK Consulting Unavailable BRAULIOY ., DR GIL Primary Care Unavailable HOY ., DR GIL Consulting Unavailable HOY ., DR GIL Admitting Unavailable HOY ., DR GIL Attending Unavailable CRIS, DR GAGE Ly Consulting Unavailable AMINTA ., DR GIL Primary [...] HOY ., DR GIL Primary Care Unavailable ZIRAMSES, DR ARTEM Cole Consulting Unavailable HOY ., DR GIL Admitting Unavailable HOY ., DR GIL Attending Unavailable HOY ., DR GIL Consulting Unavailable HOY ., DR GIL Primary Care Unavailable Refugio ARIAS, Larry Gloria Referring Unavailable Matheus Hernandez, Jackie Briggs Attending Unavailable Louise Lemos MD [facility] Unavaila diana Payan PA-C, Kayleigh Stoner Attending Unavai alessandra Lemos MD, [facility] Unavaila diana Lemos MD, [facility] Unavaila diana Hernandez, Jackie Briggs Attending Unavailable Louise Lemos MD [facility] Unavaila diana Hernandez, Jackie Briggs Attending Unavailable Louise Lemos MD [facility] Unavaila diana Hernandez, Jackie Briggs Attending Unavailable Refugio ARIAS, Larry Gloria Attending Unavailable Aminta ARIAS [facility] Unavailisak Huff MD, Larry Gloria Attending Unavailable Louise Lemos MD [facility] Unavailisak Huff MD, Larry Gloria Referring Unavailable Refugio ARIAS, Larry Gloria Attending [facility]available [facility] Huff MD, Larry Gloria Referring Unavailable Louise Lemos MD [facility] Unavailisak Huff MD, Larry Gloria Attending Unavailable Louise Lemos MD Primary Care Provider [phone] DO Hunter Richards Attending Provider Hunter Richards Attending Unavailable Hunter Richards Admitting Unavailable Louise Lemos MD Primary Care Provider [phone] LOUISE LEMOS Referring Unavailable HOY, LOUISE M Primary Care Unavailable HOY, LOUISE M Referring Unavailable HOY, LOUISE M Primary Care Unavailable FIONA GAGNON Referring Unavailabl e HOY, LOUISE M Primary Care Unavailable HOY, LOUISE M Referring Unavailable HOY, LOUISE M Primary Care Unavailable HOY, LOUISE M Referring Unavailable HOY, LOUISE M Primary Care Unavailable HOY, LOUISE M Referring Unavailable HOY, LOUISE M Primary Care Unavailable HOY, LOUISE M Primary Care Unavailable HOY, LOUISE M Referring Unavailable LOUISE LEMOS Primary Care Unavailable LOUISE LEMOS Referring Unavailable LOUISE LEMOS Primary Care Unavailable Allergies Allergy Classification Reported Allergen(s) Allergy Type Date of Onset Reaction(s) Facility Anti-Epileptic Agents (5 sources) topiramate Drug Allergy 06-27-[address] [facility] (19 sources) topiramate Drug Allergy 06-27-19 16 [facility] [place] (3 sources) Hydrocortisone / Neomycin / Polymyxin B; Translations: [NEOMYCIN-POLYMYXI N-HC] Drug Allergy 03-11-20 13 Other: See Comments [facility] (1 source) topiramate; Translations: [Topamax] Drug Allergy [facility] (1 source) smoke; Translations: [smoke] Propensity to adverse reactions (disorder) [facility] (1 source) Grass; Translations: [Grass] Propensity to adverse reactions (disorder) [facility] Medications Current Medications Medication Drug Class(es) Dates Sig (Normalized) Sig (Original) 8 hr acetaminophen 650 mg extended release oral tablet (1 source) Start: 07-26-2023 take 1 tablet by mouth every twelve hours Acetaminophen (Tylenol Arthritis Pain) 650 mg tablet extended release Active 650 MG PO Every 12 hours July 26, 2023 12:00am amoxicillin 875 mg / clavulanate 125 mg oral tablet (1 source) Penicillin-class Antibacterial Start: 10-07-2021 End: 10-14-2021 take 1 tablet by mouth twice daily amoxicillin-clavul anate (AUGMENTIN) 875-125 MG per tablet Take 1 tablet by mouth 2 times daily for 7 days 14 tablet 0 10/07/2021 10/14/2021 Active 12 hr buPROPion hydrochloride 150 mg extended release oral tablet (1 source) Aminoketone Start: 07-26-2023 take 1 tablet by mouth once daily Bupropion Hcl (Wellbutrin Sr) 150 mg tablet sustained-release 12 hr Active 150 MG PO Daily July 26, 2023 12:00am phentermine hydrochloride 37.5 mg oral tablet (1 source) Sympathomimetic Amine Anorectic Start: 07-26-2023 take 1 tablet by mouth once daily 30 minutes after breakfast Phentermine (Adipex-P) 37.5 mg tablet Active 37.5 MG PO Daily July 26, 2023 12:00am must administer 30 minutes before or 1-2 hours after breakfast Completed/Discontinued Medications Medication Drug Class(es) Dates Sig [...] daily 0 06/13/2020 Discontinued (LIST CLEANUP) cholecalciferol 08049 unt oral capsule (5 sources) Vitamin D End: 06-13-2020 Cholecalciferol (VITAMIN D3) 10768 UNITS CAPS Take 2,000 capsules by mouth once a week 0 06/13/2020 Discontinued (Therapy completed) End: 06-13-2020 take 1 capsule by mouth once daily Cholecalciferol (VITAMIN D3) 50 MCG (1999 UT) CAPS Take 2,000 Units by mouth [...] Anesthetic Start: 10-07-2021 End: 10-07-2021 lidocaine-EPINEPHrine 1 %-1:[id number] injection 20 mL gabapentin 400 mg oral [...] [CHRONIC KIDNEY DISEASE UNSPECIFIED] Onset: 01-16-2022 Chronic Diseases of white blood cells (1 source) Leukocytosis; Translations: [Elevated white blood cell count, unspecified] Chronic Genitourinary symptoms and ill-defined conditions (12 sources) Retention of urine; Translations: [Retention of urine, unspecified] Onset: 11-02-2021 Episodic Nutritional deficiencies (2 sources) Vitamin D deficiency, unspecified; Translations: [Vitamin D deficiency, unspecified] Onset: 06-27-2023 Chronic Osteoarthritis (6 sources) Localized, secondary osteoarthritis of the ankle [...] tendinitis, right leg] Onset: 03-09-2022 Episodic Other connective tissue disease (1 source) H/O: arthrodesis; Translations: [Arthrodesis status] 10-14-2023 Episodic Other connective tissue disease (1 source) Arthrodesis status; Translations: [Arthrodesis status] Onset: 10-14-2023 Episodic Other diseases of bladder and urethra (4 sources) Bladder-neck obstruction; Translations: [BLADDER-NECK OBSTRUCTION] Onset: 10-27-2021 Chronic Other liver diseases (2 sources) Steatosis of liver; Translations: [Fatty (change of) liver, not elsewhere classified] Onset: 06-14-2013 06-14-2013 Chronic Other nervous system disorders (1 source) Lesion of sciatic nerve, right lower limb; Translations: [Lesion of sciatic nerve] 07-26-2023 Chronic Other nervous system disorders (2 sources) Abnormal gait; Translations: [Unspecified abnormalities of gait and mobility] Onset: 03-09-2022 Episodic Other non-traumatic joint disorders (1 source) Chronic ankle pain; Translations: [Pain in right ankle and joints of right foot] Episodic Other non-traumatic joint disorders (4 sources) Ankle pain; Translations: [Pain in right ankle and joints of right foot] Onset: 03-09-2022 Episodic Other non-traumatic joint disorders (2 sources) Sinus tarsi syndrome of right ankle; Translations: [Pain in right ankle and joints of right foot] Onset: 03-09-2022 Episodic Other non-traumatic joint disorders (1 source) Pain of right wrist; Translations: [Pain in right wrist] Episodic Other non-traumatic joint disorders (1 source) Hip pain; Translations: [Pain in right hip] 07-25-2023 Episodic Other non-traumatic joint disorders (3 sources) Pain in left ankle and joints of left foot; Translations: [Pain in left ankle and joints of left foot] Onset: 09-13-2023 Episodic Other nutritional; endocrine; and metabolic disorders (2 sources) Obesity, unspecified; Translations: [Obesity, unspecified] Onset: 06-27-2023 Chronic Residual codes; unclassified (1 source) H/O: miscarriage; Translations: [Personal history of other complications of , childbirth and the puerperium] Episodic Residual codes; unclassified (1 source) Pain; Translations: [Pain, unspecified] Episodic Retinal detachments; defects; vascular occlusion; and retinopathy (2 sources) Retinal dystrophy; Translations: [Unspecified hereditary retinal dystrophy] Onset: 06-14-2013 06-14-2013 Chronic Skin and subcutaneous tissue infections (1 source) Abscess; Translations: [Cutaneous abscess, unspecified] Episodic Spondylosis; intervertebral disc disorders; other back problems (1 source) Herniation of nucleus pulposus of lumbar intervertebral disc; Translations: [Other intervertebral disc displacement, lumbar region] 08-01-2023 Chronic Spondylosis; intervertebral disc disorders; other back problems [...] Translations: [UNSPECIFIED ABDOMINAL PAIN] Onset: 11-25-2021 Episodic Deficiency and other anemia (3 sources) Anemia, unspecified; Translations: [ANEMIA UNSPECIFIED] Onset: 01-16-2022 Episodic Other non-traumatic joint disorders (1 source) Acute ankle pain; Translations: [Acute left ankle pain] Episodic Other non-traumatic joint disorders (6 sources) Pain in right ankle and joints of right foot; Translations: [Right ankle pain, unspecified chronicity] Onset: 01-16-2022 Episodic Other non-traumatic joint disorders (5 sources) Pain in right hip; Translations: [Pain in joint, pelvic region and thigh] Onset: 06-27-2023 07-26-2023 Episodic Other screening for suspected conditions (not mental disorders or infectious disease) (2 sources) Increased lactic acid level; Translations: [Other specified abnormal findings of blood chemistry] Onset: 01-22-2022 Episodic Otitis media and related conditions (20 sources) Otitis media; Translations: [Unspecified nonsuppurative otitis media, unspecified ear] Onset: 12-03-2013 12-03-2013 Episodic Residual codes; unclassified (2 sources) Insomnia, unspecified; Translations: [Insomnia, unspecified] Onset: 06-27-2023 Episodic Urinary tract infections (5 sources) Urinary tract infectious disease; Translations: [Urinary tract infection, site not specified] Onset: 11-21-2021 Episodic Results Test Name Value Interpretation Reference Range Facility CT ANKLE LEFT WO CONTRASTon 10-16-2023 CT ANKLE LEFT WO CONTRAST EXAMINATION: CT OF THE LEFT ANKLE WITHOUT CONTRAST 10/14/2023 6:15 pm TECHNIQUE: CT of the left ankle was performed without the administration of intravenous contrast. Multiplanar reformatted images are provided for review. Automated exposure control, iterative reconstruction, and/or weight based adjustment of the mA/kV was utilized to reduce the radiation dose to as low as reasonably achievable. COMPARISON: Left ankle radiographs 09/13/2023. HISTORY ORDERING SYSTEM PROVIDED HISTORY: Arthrodesis status TECHNOLOGIST PROVIDED HISTORY: Is the patient ?->No FINDINGS: Status post tibiotalar arthrodesis with an anterior plate and locking screws and several trans articular non locking screws. The hardware appears to be appropriately positioned and intact. There is up to approximately 6 mm interface widening about the cancellous screw within the lateral talus as measured on coronal image 127. 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 The distal tibia and fibula are intact. No syndesmotic widening. Mild subtalar degenerative changes. The talonavicular and calcaneocuboid joints are unremarkable. The midfoot is normal in appearance. The metatarsophalangeal joints are unremarkable. No fracture or dislocation. No osseous erosion or periosteal reaction identified. The visualized tendons are grossly intact. No abnormal soft tissue mass or fluid collection identified. IMPRESSION: 1. 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 2. Up to 6 mm interface widening about the cancellous screw within the lateral talus suggesting loosening. Interpreted by: Aaron Ladd MD Signed by: Aaron Ladd MD 10/16/23 Final result Normal [facility] CT Ankle - left WO contrasto n 10-16-2023 1. 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 2. Up to 6 mm interface widening about the cancellous screw within the lateral talus suggesting loosening. [facility] RIS CONSOLIDATED EXAMINATION: CT OF THE LEFT ANKLE WITHOUT CONTRAST 10/14/2023 6:15 pm TECHNIQUE: CT of the left ankle was performed without the administration of intravenous contrast. Multiplanar reformatted images are provided for review. Automated exposure control, iterative reconstruction, and/or weight based adjustment of the mA/kV was utilized to reduce the radiation dose to as low as reasonably achievable. COMPARISON: Left ankle radiographs 09/13/2023. HISTORY ORDERING SYSTEM PROVIDED HISTORY: Arthrodesis status TECHNOLOGIST PROVIDED HISTORY: Is the patient ?->No FINDINGS: Status post tibiotalar arthrodesis with an anterior plate and locking screws and several trans articular non locking screws. The hardware appears to be appropriately positioned and intact. There is up to approximately 6 mm interface widening about the cancellous screw within the lateral talus as measured on coronal image 127. 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 The distal tibia and fibula are intact. No syndesmotic widening. Mild subtalar degenerative changes. The talonavicular and calcaneocuboid joints are unremarkable. The midfoot is normal in appearance. The metatarsophalangeal joints are unremarkable. No fracture or dislocation. No osseous erosion or periosteal reaction identified. The visualized tendons are grossly intact. No abnormal soft tissue mass or fluid collection identified. [facility] Aaron Aguiar MD - 10/16/2023 EXAMINATION: CT OF THE LEFT ANKLE WITHOUT CONTRAST 10/14/2023 6:15 pm TECHNIQUE: CT of the left ankle was performed without the administration of intravenous contrast. Multiplanar reformatted images are provided for review. Automated exposure control, iterative reconstruction, and/or weight based adjustment of the mA/kV was utilized to reduce the radiation dose to as low as reasonably achievable. COMPARISON: Left ankle radiographs 09/13/2023. HISTORY ORDERING SYSTEM PROVIDED HISTORY: Arthrodesis status TECHNOLOGIST PROVIDED HISTORY: Is the patient ?->No FINDINGS: Status post tibiotalar arthrodesis with an anterior plate and locking screws and several trans articular non locking screws. The hardware appears to be appropriately positioned and intact. There is up to approximately 6 mm interface widening about the cancellous screw within the lateral talus as measured on coronal image 127. 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 The distal tibia and fibula are intact. No syndesmotic widening. Mild subtalar degenerative changes. The talonavicular and calcaneocuboid joints are unremarkable. The midfoot is normal in appearance. The metatarsophalangeal joints are unremarkable. No fracture or dislocation. No osseous erosion or periosteal reaction identified. The visualized tendons are grossly intact. No abnormal soft tissue mass or fluid collection identified. IMPRESSION: 1. 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 2. Up to 6 mm interface widening about the cancellous screw within the lateral talus suggesting loosening. [facility] - left WO contrastO rdered By: Aaron Ladd on 10-16-2023 [facility] Work Phone: CT Ankle - left WO contrasto n 10-14-2023 Radiology Study observation (narrative) [facility] [employer] XR ANKLE LEFT (2 VIEWS)on XR ANKLE LEFT (2 VIEWS) EXAMINATION: XRAY VIEWS OF THE LEFT ANKLE 09/13/2023 2:38 pm COMPARISON: September 12, 2022 HISTORY: ORDERING SYSTEM PROVIDED HISTORY: Left ankle pain, unspecified chronicity FINDINGS: Stable hardware distal tibia and talus with new hardware fusing the tibiotalar articulation. No hardware failure or complication demonstrated. No acute osseous abnormality. Soft tissues unremarkable. IMPRESSION: Postoperative change as detailed. Interpreted by: Nirmal Haskins DO Signed by: Nirmal Haskins DO 09/14/23 Final result Normal [facility] XR Ankle - left 2 [employer] Postoperative change as detailed. [facility] RIS CONSOLIDATED EXAMINATION: XRAY VIEWS OF THE LEFT ANKLE 09/13/2023 2:38 pm COMPARISON: September 12, 2022 HISTORY: ORDERING SYSTEM PROVIDED HISTORY: Left ankle pain, unspecified chronicity FINDINGS: Stable hardware distal tibia and talus with new hardware fusing the tibiotalar articulation. No hardware failure or complication demonstrated. No acute osseous abnormality. Soft tissues unremarkable. [facility] RIS CONSOLIDATED Nirmal Haskins DO - 09/14/2023 EXAMINATION: XRAY VIEWS OF THE LEFT ANKLE 09/13/2023 2:38 pm COMPARISON: September 12, 2022 HISTORY: ORDERING SYSTEM PROVIDED HISTORY: Left ankle pain, unspecified chronicity FINDINGS: Stable hardware distal tibia and talus with new hardware fusing the tibiotalar articulation. No hardware failure or complication demonstrated. No acute osseous abnormality. Soft tissues unremarkable. IMPRESSION: Postoperative change as detailed. [facility] XR Ankle - left 2 ViewsOrder ed By: Nirmal Haskins on 09-14-2023 [facility] Work Phone: XR Ankle - left 2 [employer] Radiology Study observation (narrative) [employer] CBC with Auto Differentialon 09-05-2023 Basophils (Bld) [#/Vol] 0.04 10*3/uL [facility] Basophils/100 WBC (Bld) 0 % 0 - 2 % [facility] Eosinophils (Bld) [#/Vol] 0.12 10*3/uL [facility] Eosinophils/100 WBC (Bld) 1 % 1 - 4 % [facility] Erythrocyte distribution width (RBC) [Ratio] 13.6 % 11.8 - 14.4 % [facility] Hematocrit (Bld) [Volume fraction] 40.8 % 36.3 - 47.1 % [facility] Hemoglobin (Bld) [Mass/Vol] 13.8 g/dL 11.9 - 15.1 g/dL [facility] Immature granulocytes (Bld) [#/Vol] 0.03 10*3/uL [facility] Immature granulocytes/100 WBC (Bld) 0 % 0 [facility] Interpretation and review of laboratory results Abnormal [facility] Lymphocytes/100 WBC (Bld) 24 % Low 25 - 45 % [facility] Lymphocytes/100 WBC (Bld) 2.51 % [facility] MCH (RBC) [Entitic mass] 28.5 pg 25.2 - 33.5 pg [facility] MCHC (RBC) [Mass/Vol] 33.8 g/dL 28.4 - 34.8 g/dL [facility] MCV (RBC) [Entitic vol] 84.1 fL 82.6 - 102.9 fL [facility] Monocytes/100 WBC (Bld) 8 % 2 - 8 % [facility] Monocytes/100 WBC (Bld) 0.80 % [facility] Neutrophils/100 WBC (Bld) 67 % High 34 - 64 % [facility] Nucleated RBC/100 WBC (Bld) [Ratio] 0.0 % 0.0 per 100 WBC [facility] Platelet mean volume (Bld) [Entitic vol] 10.1 fL 8.1 - 13.5 fL [facility] Platelets (Bld) [#/Vol] 418 10*3/uL [facility] RBC (Bld) [#/Vol] 4.85 10*6/uL 3.95 - 5.1 1 m/uL [facility] Segmented neutrophils/100 WBC (Bld) 7.14 % [facility] WBC other (Bld) [#/Vol] 10.6 [facility] CBC with Diffon 09-05-2023 Abs. Basophil 0.04 k/uL Normal 0.00-0.20 [facility] Comment on above: Performed By: #### V D25 #### [address] [address] Apiculture Teacher: Bala Borges MD #### CDP #### [facility] [address] [place] [address] Apiculture Teacher: Gage Barraza MD Abs.Imm.Granulocyte 0.03 k/uL Normal 0.00-0.30 [facility] Comment on above: Performed By: #### V D25 #### [address] [address] Apiculture Teacher: Bala Borges MD #### CDP #### [facility] [address] [place] [address] [place] [address] Apiculture Teacher: Gage Barraza MD Abs.Neutrophil (Seg) 7.14 k/uL Normal 1.50-8.10 [facility] Comment on above: Performed By: #### V D25 #### [address] [address] Apiculture Teacher: Bala Borges MD #### CDP #### [facility] [address] [place] [id number] Apiculture Teacher: Gage Barraza MD Basophils/100 WBC (Bld) 0 % Normal 0-2 [facility] Comment on above: Performed By: #### V D25 #### [address] [address] Apiculture Teacher: Bala Borges MD #### CDP #### [facility] [place], [place] [id number] Apiculture Teacher: Gage Barraza MD Eosinophils (Bld) [#/Vol] 0.12 10*3/uL Normal 0.00-0.44 [facility] Comment on above: Performed By: #### V D25 #### [address] [address] Apiculture Teacher: Bala Borges MD #### CDP #### [address] [place], [place] [id number] Apiculture Teacher: Gage Barraza MD Eosinophils/100 WBC (Bld) 1 % Normal 1-4 [facility] Comment on above: Performed By: #### V D25 #### [address] [address] Apiculture Teacher: Bala Borges MD #### CDP #### [address] [place] [id number] Apiculture Teacher: Gage Barraza MD Erythrocyte distribution width (RBC) [Ratio] 13.6 % Normal 11.8-14.4 [facility] Comment on above: Performed By: #### V D25 #### [address] [address] Apiculture Teacher: Bala Borges MD #### CDP #### [address] [place] [id number] Apiculture Teacher: Gage Barraza MD Hematocrit (Bld) [Volume fraction] 40.8 % Normal 36.3-47.1 [facility] Comment on above: Performed By: #### V D25 #### [address] [address] Apiculture Teacher: Bala Borges MD #### CDP #### [address] [place], [place] [id number] Apiculture Teacher: Gage Barraza MD Hemoglobin (Bld) [Mass/Vol] 13.8 g/dL Normal 11.9-15.1 [facility] Comment on above: Performed By: #### V D25 #### [facility] [address] [place] [address] Apiculture Teacher: Bala Borges MD #### CDP #### [facility] [address] [place] [address] Dr. [place] [id number] Apiculture Teacher: Gage Barraza MD Immature granulocytes/100 WBC (Bld) 0 % Normal 0 [facility] Comment on above: Performed By: #### V D25 #### [address] [address] Apiculture Teacher: Bala Borges MD #### CDP #### [address] [place] [id number] Apiculture Teacher: Gage Barraza MD Lymphocytes (Bld) [#/Vol] 2.51 10*3/uL Normal 1.10-3.70 [facility] Comment on above: Performed By: #### V D25 #### [address] [address] Apiculture Teacher: Bala Borges MD #### CDP #### [address] [place] [id number] Apiculture Teacher: Gage Barraza MD Lymphocytes/100 WBC (Bld) 24 % Low -17 [facility] Comment on above: Performed By: #### V D25 #### [address] [address] Apiculture Teacher: Bala Borges MD #### CDP #### [facility] [address] [place] [address] Dr[place] [id number] Apiculture Teacher: Gage Barraza MD MCH (RBC) [Entitic mass] 28.5 pg Normal 25.2-33.5 [facility] Comment on above: Performed By: #### V D25 #### [place] [address] [place] [address] Apiculture Teacher: Bala Borges MD #### CDP #### [facility] [address] [place] [address] Dr. [place], [place] [id number] Apiculture Teacher: Gage Barraza MD MCHC (RBC) [Mass/Vol] 33.8 g/dL Normal 28.4-34.8 [facility] Comment on above: Performed By: #### V D25 #### [address] [address] Apiculture Teacher: Bala Borges MD #### CDP #### [address] [place], [place] [phone] Apiculture Teacher: Gage Barraza MD MCV (RBC) [Entitic vol] 84.1 fL Normal 82.6-102.9 [facility] Comment on above: Performed By: #### V D25 #### [address] [address] Apiculture Teacher: Bala Borges MD #### CDP #### [address] [place], [place] [phone] Apiculture Teacher: Gage Barraza MD Monocytes (Bld) [#/Vol] 0.80 10*3/uL Normal 0.10-1.40 [facility] Comment on above: Performed By: #### V D25 #### [address] [address] Apiculture Teacher: Bala Borges MD #### CDP #### [address] [place], [place] [id number] Apiculture Teacher: Gage Barraza MD Monocytes/100 WBC (Bld) 8 % Normal 2-8 [facility] Comment on above: Performed By: #### V D25 #### [address] [place] [address] Apiculture Teacher: Bala Borges MD #### CDP #### [facility] [address] [place], [place] [phone] Apiculture Teacher: Gage Barraza MD Neutrophil (Seg) 67 % High 34-64 [facility] Comment on above: Performed By: #### V D25 #### [address] [address] Apiculture Teacher: Bala Borges MD #### CDP #### [facility] [address] [place] [address] Dr. [place] [phone] Apiculture Teacher: Gage Barraza MD NRBC Automated 0.0 per 100 WBC Normal 0.0 [facility] Comment on above: Performed By: #### V D25 #### [address] [address] Apiculture Teacher: Bala Borges MD #### CDP #### [facility] [address] [place] [address] Dr. [place], [place] [phone] Apiculture Teacher: Gage Barraza MD Platelet mean volume (Bld) [Entitic vol] 10.1 fL Normal 8.1-13.5 [facility] Comment on above: Performed By: #### V D25 #### [address] [address] Apiculture Teacher: Bala Borges MD #### CDP #### [facility] [address] [place] [address] Dr. [place], [place] [phone] Apiculture Teacher: Gage Barraza MD Platelets (Bld) [#/Vol] 418 10*3/uL Normal 138-453 [facility] Comment on above: Performed By: #### V D25 #### [address] [address] Apiculture Teacher: Bala Borges MD #### CDP #### [facility] [address] [place] [address] Apiculture Teacher: Gage Barraza MD RBC (Bld) [#/Vol] 4.85 10*6/uL Normal 3.95-5.11 [facility] Comment on above: Performed By: #### V D25 #### [facility] [address] [place], [place] [phone] Apiculture Teacher: Bala Borges MD #### CDP #### [facility] [address] [place] [address] Apiculture Teacher: Gage Barraza MD WBC (Bld) [#/Vol] 10.6 10*3/uL Normal 4.5-13.5 [facility] Comment on above: Performed By: #### V D25 #### [facility] [address] [place], [place] [phone] Apiculture Teacher: Bala Borges MD #### CDP #### [facility] [address] [place] [address] Apiculture Teacher: Gage Barraza MD US RENAL COMPLETEon 09-05-19 US RENAL COMPLETE EXAMINATION: RETROPERITONEAL ULTRASOUND OF THE KIDNEYS AND URINARY BLADDER 09/05/2023 COMPARISON: None HISTORY: ORDERING SYSTEM PROVIDED HISTORY: Dysuria FINDINGS: Kidneys: The right kidney measures 11.6 cm in length and the left kidney measures 11 cm in length. Kidneys demonstrate normal cortical echogenicity. No evidence of hydronephrosis or intrarenal stones. Bladder: Unremarkable appearance of the bladder. No significant post void residual. IMPRESSION: Unremarkable ultrasound of the kidneys and urinary bladder. Interpreted by: Nirmal Haskins DO Signed by: Nirmal Haskins DO 09/05/23 Final result Normal [facility] Vitamin D 25 Hydroxyon 09-04 25-hydroxyvitamin D3 [Mass/Vol] 26.6 ng/mL Low 30.0 - 100.0 ng/mL [facility] Comment on above: Reference Range: Vitamin D status Range Deficiency <20 ng/mL Mild Deficiency 20-30 ng/mL Sufficiency 30-100 ng/mL Toxicity >100 ng/mL Interpretation and review of laboratory results Abnormal [facility] Vitamin D 25 OHon 09-05-2023 Vitamin D 25 OH 26.6 ng/mL Low 30.0-100.0 [facility] Comment on above: Result Comment: Reference Range: Vitamin D status Range Deficiency <20 ng/mL Mild Deficiency 20-30 ng/mL Sufficiency 30-100 ng/mL Toxicity >100 ng/mL Performed By: #### V D25 #### [facility] [employer] [address] [place], [place] [phone] Apiculture Teacher: Bala Borges MD #### CDP #### [facility] [address] [place] [address] Apiculture Teacher: Gage Barraza MD XR hip RT min 2V(w/wo pelvis )*on 07-26-2023 XR hip RT min 2V(w/wo pelvis)* [facility] [address] [place] [address] XRay Report Signed Patient: Blanka Farias MR#: [id number] : 2000 Acct:[id number] Age/Sex: 22 / F ADM Date: 07/26/23 Loc: [facility] Room: Type: [facility] Attending Dr: Hunter Richards DO Copies to: Hunter Richards DO Ordering Provider: Hunter Richards DO Date of Service: 07/26/23 XR/XR hip RT min 2V(w/wo pelvis)*: M25.551 - Pain in right hip RIGHT HIP - 2 views: CLINICAL HISTORY: Right hip pain for months. COMPARISON: None FINDINGS: No acute bony process. Joint spaces appear maintained. No bony erosions. XR/XR hip RT min 2V(w/wo pelvis)* IMPRESSION: NO ACUTE BONY PROCESS.. Impression dictated by: Az Little Jr., D.OChoco07/26/2023 3:46 PM Dictation Location: [place] [address] Transcribed By: NIA 07/26/23 4805 Dictated By: Az Little Jr, DO 07/26/23 1540 Signed By: 07/26/23 1546 [facility] Cortisolon 06-28-2023 Cortisol 12.6 ug/dL Normal 2.5-19.5 [facility] Comment on above: Result Comment: Cortisol Reference Range: AM 6.0-18.4 PM 2.7-10.5 Performed By: #### V D25, FE, T4, GLYHGB, FT3, CORTI, LIPR, INSU ####[facility] [address] [place] [address] Lab Director: Bala Borges MD#### CP, TSH, CDP ####[address] [place] [address] lab Director: Gage Barraza MD Hemoglobin A1Con 06-28-2023 Glucose [Mass/Vol] 100 mg/dL Normal [facility] Comment on above: Result Comment: The ADA and AACC recommend providing the estimated average glucose result to permit better patient understanding of their HBA1c result. Performed By: #### V D25, FE, T4, GLYHGB, FT3, CORTI, LIPR, INSU ####[facility] [address] [place] [address] Lab Director: Bala Borges MD#### CP, TSH, CDP ####[address] [place] [address] Lab Director: Gage Barraza MD HbA1c (Bld) [Mass fraction] 5.1 % Normal 4.0-6.0 [facility] Comment on above: Performed By: #### V D25, FE, T4, GLYHGB, FT3, CORTI, LIPR, INSU ####[facility] [address] [place] [address] Lab Director: Bala Borges MD#### CP, TSH, CDP ####[address] [place], [place] 1808083 lab Director: Gage Barraza MD Insulinon 06-28-2023 Insulin 18.2 mU/L Normal [facility] Comment on above: Performed By: #### V D25, FE, T4, GLYHGB, FT3, CORTI, LIPR, INSU ####[address] [place], [place] 4779508 lab Director: Bala Borges MD#### CP, TSH, CDP ####[address] [place], [place] 1735483 lab Director: Gage Barraza MD Reference Range Normal [facility] Comment on above: Result Comment: Fast in.6-24.9 30 min: 20-112 60 min: 29-88 90 min: 26-84 120 min: 22-79 Performed By: #### V D25, FE, T4, GLYHGB, FT3, CORTI, LIPR, INSU ####[address] [phone] lab Director: Bala Borges MD#### CP, TSH, CDP ####[address] [place] [address] lab Director: Gage Barraza MD Ironon 06-28-2023 Iron [Mass/Vol] 53 ug/dL Normal 37-145 [facility] Comment on above: Performed By: #### V D25, FE, T4, GLYHGB, FT3, CORTI, LIPR, INSU ####[facility] [address] [place], [place] 7509408 lab Director: Bala Borges MD#### CP, TSH, CDP ####[address] [place] [address] lab Director: Gage Bararza MD Lipid Profileon 06-28-2023 Cholesterol [Mass/Vol] 189 mg/dL Normal <200 [facility] Comment on above: Result Comment: Cholesterol Guidelines: <200 Desirable 200-240 Borderline >240 Undesirable Performed By: #### V D25, FE, T4, GLYHGB, FT3, CORTI, LIPR, INSU ####[address] [place] [address] Lab Director: Bala Borges MD#### CP, TSH, CDP ####[address] [place], [place] 5298583 Lab Director: Gage Barraza MD Cholesterol in HDL [Mass/Vol] 34 mg/dL Low >40 [facility] Comment on above: Result Comment: HDL Guidelines: <40 Undesirable 40-59 Borderline >59 Desirable Performed By: #### V D25, FE, T4, GLYHGB, FT3, CORTI, LIPR, INSU ####[address] [place] [address] Lab Director: Bala Borges MD#### CP, TSH, CDP ####[address] [place] [id number] Lab Director: Gage Barraza MD Cholesterol in LDL [Mass/Vol] 122 mg/dL Normal 0-130 [facility] Comment on above: Result Comment: LDL Guidelines: <100 Desirable 100-129 Near to/above Desirable 130-159 Borderline >159 Undesirable Direct (measured) LDL and calculated LDL are not interchangeable tests. Performed By: #### V D25, FE, T4, GLYHGB, FT3, CORTI, LIPR, INSU ####[facility] [address] [place] [address] Lab Director: Bala Borges MD#### CP, TSH, CDP ####[address] [place], [place] 0139883 Lab Director: Gage Barraza MD Cholesterol.total/Chol esterol in HDL [Mass ratio] 5.6 {ratio} High <5 [facility] Comment on above: Performed By: #### V D25, FE, T4, GLYHGB, FT3, CORTI, LIPR, INSU ####[address] [place] [address] Lab Director: Bala Borges MD#### CP, TSH, CDP ####[address] [place], [place] 4197083 Lab Director: Gage Barraza MD Triglyceride [Mass/Vol] 164 mg/dL High <150 [facility] Comment on above: Result Comment: Triglyceride Guidelines: <150 Desirable 150-199 Borderline 200-499 High >499 Very high Based on AHA Guidelines for fasting triglyceride, January 2012. Performed By: #### V D25, FE, T4, GLYHGB, FT3, CORTI, LIPR, INSU ####[facility] [address] [place] [address] Lab Director: Bala Borges MD#### CP, TSH, CDP ####[address] [place], [place] 7502483 Lab Director: Gage Barraza MD T3, Freeon 06-28-2023 Free T3 [Mass/Vol] 3.65 pg/mL Normal 2.02-4.43 [facility] Comment on above: Performed By: #### V D25, FE, T4, GLYHGB, FT3, CORTI, LIPR, INSU ####[address] [place] [address] Lab Director: Bala Borges MD#### CP, TSH, CDP ####[address] [place], [place] 4921383 Lab Director: Gage Barraza MD Thyroxine T4on 06-28-2023 T4 [Mass/Vol] 9.1 ug/dL Normal 4.5-11.7 [facility] Comment on above: Performed By: #### V D25, FE, T4, GLYHGB, FT3, CORTI, LIPR, INSU ####[facility] [address] [place] [address] [facility] Director: Bala Borges MD#### CP, TSH, CDP ####[address] [place] [address] lab Director: Gage Barraza MD Vitamin D 25 OHon 06-28-2023 Vitamin D 25 [place] 23.6 ng/mL Low >29.9 [facility] Comment on above: Result Comment: Reference Range: Vitamin D status Range Deficiency <20 ng/mL Mild Deficiency 20-30 ng/mL Sufficiency 30-100 ng/mL Toxicity >100 ng/mL Performed By: #### V D25, FE, T4, GLYHGB, FT3, CORTI, LIPR, INSU ####[employer] [address] [place] [address] Lab Director: Bala Borges MD#### CP, TSH, CDP ####[address] [place] [address] lab Director: Gage Barraza MD XR HIP RIGHT [...] Madhavi Bhakta DO 06/28/23 Final result Normal [facility] CBC with Diffon 06-27-2023 Abs. Basophil 0.03 k/uL Normal 0.00-0.20 [facility] Comment on above: Performed By: #### V D25, FE, T4, GLYHGB, FT3, CORTI, LIPR, INSU #### [employer] [address] [place] [address] Apiculture Teacher: Bala Borges MD #### CP, TSH, CDP #### [address] [place], [place] [phone] Apiculture Teacher: Gage Barraza MD Abs.Imm.Granulocyte 0.03 k/uL Normal 0.00-0.30 [facility] Comment on above: Performed By: #### V D25, FE, T4, GLYHGB, FT3, CORTI, LIPR, INSU #### [address] [id number] Apiculture Teacher: Bala Borges MD #### CP, TSH, CDP #### [address] [place] [address] Apiculture Teacher: Gage Barraza MD Abs.Neutrophil (Seg) 5.65 k/uL Normal 1.80-8.00 [facility] Comment on above: Performed By: #### V D25, FE, T4, GLYHGB, FT3, CORTI, LIPR, INSU #### [address] [phone] Apiculture Teacher: Bala Borges MD #### CP, TSH, CDP #### [address] [place] [id number] Apiculture Teacher: Gage Barraza MD Basophils/100 WBC (Bld) 0 % Normal 0-2 [facility] Comment on above: Performed By: #### V D25, FE, T4, GLYHGB, FT3, CORTI, LIPR, INSU #### [address] [id number] Apiculture Teacher: Bala Borges MD #### CP, TSH, CDP #### [address] [place] [address] Apiculture Teacher: Gage Barraza MD Eosinophils (Bld) [#/Vol] 0.16 10*3/uL Normal 0.00-0.44 [facility] Comment on above: Performed By: #### V D25, FE, T4, GLYHGB, FT3, CORTI, LIPR, INSU #### [address] [address] Apiculture Teacher: Bala Borges MD #### CP, TSH, CDP #### [address] [place] [id number] Apiculture Teacher: Gage Barraza MD Eosinophils/100 WBC (Bld) 2 % Normal 1-4 [facility] Comment on above: Performed By: #### V D25, FE, T4, GLYHGB, FT3, CORTI, LIPR, INSU #### [address] [address] Apiculture Teacher: Bala Borges MD #### CP, TSH, CDP #### [address] [place] [phone] Apiculture Teacher: Gage Barraza MD Erythrocyte distribution width (RBC) [Ratio] 13.6 % Normal 11.8-14.4 [facility] Comment on above: Performed By: #### V D25, FE, T4, GLYHGB, FT3, CORTI, LIPR, INSU #### [address] [address] Apiculture Teacher: Bala Borges MD #### CP, TSH, CDP #### [address] [place] [phone] Apiculture Teacher: Gage Barraza MD Hematocrit (Bld) [Volume fraction] 38.8 % Normal 36.3-47.1 [facility] Comment on above: Performed By: #### V D25, FE, T4, GLYHGB, FT3, CORTI, LIPR, INSU #### [address] [id number] Apiculture Teacher: Bala Borges MD #### CP, TSH, CDP #### [address] [place] [address] Apiculture Teacher: Gage Barraza MD Hemoglobin (Bld) [Mass/Vol] 13.0 g/dL Normal 11.9-15.1 [facility] Comment on above: Performed By: #### V D25, FE, T4, GLYHGB, FT3, CORTI, LIPR, INSU #### [address] [address] Apiculture Teacher: Bala Borges MD #### CP, TSH, CDP #### [address] [place] [address] Apiculture Teacher: Gage Barraza MD Immature granulocytes/100 WBC (Bld) 0 % Normal 0 [facility] Comment on above: Performed By: #### V D25, FE, T4, GLYHGB, FT3, CORTI, LIPR, INSU #### [address] [address] Apiculture Teacher: Bala Borges MD #### CP, TSH, CDP #### [address] [place] [address] Apiculture Teacher: Gage Barraza MD Lymphocytes (Bld) [#/Vol] 3.03 10*3/uL Normal 1.20-5.20 [facility] Comment on above: Performed By: #### V D25, FE, T4, GLYHGB, FT3, CORTI, LIPR, INSU #### [address] [address] Apiculture Teacher: Bala Borges MD #### CP, TSH, CDP #### [address] [place] [address] Apiculture Teacher: Gage Barraza MD Lymphocytes/100 WBC (Bld) 31 % Normal 25-45 [facility] Comment on above: Performed By: #### V D25, FE, T4, GLYHGB, FT3, CORTI, LIPR, INSU #### [address] [address] Apiculture Teacher: Bala Borges MD #### CP, TSH, CDP #### [address] [place], [place] 1650383 Apiculture Teacher: Gage Barraza MD MCH (RBC) [Entitic mass] 28.0 pg Normal 25.2-33.5 [facility] Comment on above: Performed By: #### V D25, FE, T4, GLYHGB, FT3, CORTI, LIPR, INSU #### [address] [address] Apiculture Teacher: Bala Borges MD #### CP, TSH, CDP #### [address] [place] [address] Apiculture Teacher: Gage Barraza MD MCHC (RBC) [Mass/Vol] 33.5 g/dL Normal 28.4-34.8 [facility] Comment on above: Performed By: #### V D25, FE, T4, GLYHGB, FT3, CORTI, LIPR, INSU #### [address] [address] Apiculture Teacher: Bala Borges MD #### CP, TSH, CDP #### [address] [place] [phone] Apiculture Teacher: Gage Barraza MD MCV (RBC) [Entitic vol] 83.6 fL Normal 82.6-102.9 [facility] Comment on above: Performed By: #### V D25, FE, T4, GLYHGB, FT3, CORTI, LIPR, INSU #### [address] [address] Apiculture Teacher: Bala Borges MD #### CP, TSH, CDP #### [address] [place], [place] [phone] Apiculture Teacher: Gage Barraza MD Monocytes (Bld) [#/Vol] 0.79 10*3/uL Normal 0.10-1.40 [facility] Comment on above: Performed By: #### V D25, FE, T4, GLYHGB, FT3, CORTI, LIPR, INSU #### [address] [address] Apiculture Teacher: Bala Borges MD #### CP, TSH, CDP #### [address] [place] [address] Apiculture Teacher: Gage Barraza MD Monocytes/100 WBC (Bld) 8 % Normal 2-8 [facility] Comment on above: Performed By: #### V D25, FE, T4, GLYHGB, FT3, CORTI, LIPR, INSU #### [address] [address] Apiculture Teacher: Bala Borges MD #### CP, TSH, CDP #### [address] [place] [address] Apiculture Teacher: Gage Barraza MD Neutrophil (Seg) 59 % Normal 34-64 [facility] Comment on above: Performed By: #### V D25, FE, T4, GLYHGB, FT3, CORTI, LIPR, INSU #### [address] [address] Apiculture Teacher: Bala Borges MD #### CP, TSH, CDP #### [address] [place] [address] Apiculture Teacher: Gage Barraza MD NRBC Automated 0.0 per 100 WBC Normal 0.0 [facility] Comment on above: Performed By: #### V D25, FE, T4, GLYHGB, FT3, CORTI, LIPR, INSU #### [address] [address] Apiculture Teacher: Bala Borges MD #### CP, TSH, CDP #### [address] [place], [place] [phone] Apiculture Teacher: Gage Barraza MD Platelet mean volume (Bld) [Entitic vol] 10.2 fL Normal 8.1-13.5 [facility] Comment on above: Performed By: #### V D25, FE, T4, GLYHGB, FT3, CORTI, LIPR, INSU #### [address] [address] Apiculture Teacher: Bala Borges MD #### CP, TSH, CDP #### [address] [place] [phone] Apiculture Teacher: Gage Barraza MD Platelets (Bld) [#/Vol] 326 10*3/uL Normal 138-453 [facility] Comment on above: Performed By: #### V D25, FE, T4, GLYHGB, FT3, CORTI, LIPR, INSU #### [address] [address] Apiculture Teacher: Bala Borges MD #### CP, TSH, CDP #### [address] [place] [phone] Apiculture Teacher: Gage Barraza MD RBC (Bld) [#/Vol] 4.64 10*6/uL Normal 3.95-5.11 [facility] Comment on above: Performed By: #### V D25, FE, T4, GLYHGB, FT3, CORTI, LIPR, INSU #### [address] [address] Apiculture Teacher: Bala Borges MD #### CP, TSH, CDP #### [address] [place] [phone] Apiculture Teacher: Gage Barraza MD WBC (Bld) [#/Vol] 9.7 10*3/uL Normal 4.5-13.5 [facility] Comment on above: Performed By: #### V D25, FE, T4, GLYHGB, FT3, CORTI, LIPR, INSU #### [address] [address] Apiculture Teacher: Bala Borges MD #### CP, TSH, CDP #### [facility] [address] [place] [address] Apiculture Teacher: Gage Barraza MD Comp Metabolic Profon 2023 Albumin [Mass/Vol] 4.2 g/dL Normal 3.5-5.2 [facility] Comment on above: Performed By: #### V D25, FE, T4, GLYHGB, FT3, CORTI, LIPR, INSU #### [address] [address] Apiculture Teacher: Bala Borges MD #### CP, TSH, CDP #### [address] [place] [address] Apiculture Teacher: Gage Barraza MD Albumin/Glob Ratio 1.4 Normal 1.0-2.5 [facility] Comment on above: Performed By: #### V D25, FE, T4, GLYHGB, FT3, CORTI, LIPR, INSU #### [address] [address] Apiculture Teacher: Bala Borges MD #### CP, TSH, CDP #### [address] [place] [address] Apiculture Teacher: Gage Barraza MD Alkaline Phos 67 U/L Normal 35-104 [facility] Comment on above: Performed By: #### V D25, FE, T4, GLYHGB, FT3, CORTI, LIPR, INSU #### [address] [address] Apiculture Teacher: Bala Borges MD #### CP, TSH, CDP #### [address] [place], [place] 0647983 Apiculture Teacher: Gage Barraza MD ALT [Catalytic activity/Vol] 69 U/L High 5-33 [facility] Comment on above: Performed By: #### V D25, FE, T4, GLYHGB, FT3, CORTI, LIPR, INSU #### [address] [address] Apiculture Teacher: Bala Borges MD #### CP, TSH, CDP #### [address] [place], [place] 6807183 Apiculture Teacher: Gage Barraza MD Anion gap [Moles/Vol] 9 mmol/L Normal 9-17 [facility] Comment on above: Performed By: #### V D25, FE, T4, GLYHGB, FT3, CORTI, LIPR, INSU #### [address] [address] Apiculture Teacher: Bala Borges MD #### CP, TSH, CDP #### [address] [place], [place] [phone] Apiculture Teacher: Gage Barraza MD AST [Catalytic activity/Vol] 75 U/L High <32 [facility] Comment on above: Performed By: #### V D25, FE, T4, GLYHGB, FT3, CORTI, LIPR, INSU #### [address] [address] Apiculture Teacher: Bala Borges MD #### CP, TSH, CDP #### [address] [place], [place] 1391383 Apiculture Teacher: Gage Barraza MD Bilirubin [Mass/Vol] 0.4 mg/dL Normal 0.3-1.2 [facility] Comment on above: Performed By: #### V D25, FE, T4, GLYHGB, FT3, CORTI, LIPR, INSU #### [address] [address] Apiculture Teacher: Bala Borges MD #### CP, TSH, CDP #### [address] [place], [place] 5725983 Apiculture Teacher: Gage Barraza MD BUN/CRE Ratio 18 Normal 9-20 [facility] Comment on above: Performed By: #### V D25, FE, T4, GLYHGB, FT3, CORTI, LIPR, INSU #### [address] [address] Apiculture Teacher: Bala Borges MD #### CP, TSH, CDP #### [address] [place], [place] 6080783 Apiculture Teacher: Gage Barraza MD Calcium [Mass/Vol] 9.0 mg/dL Normal 8.6-10.4 [facility] Comment on above: Performed By: #### V D25, FE, T4, GLYHGB, FT3, CORTI, LIPR, INSU #### [address] [address] Apiculture Teacher: Bala Borges MD #### CP, TSH, CDP #### [address] [place], [place] 1668383 Apiculture Teacher: Gage Barraza MD Chloride [Moles/Vol] 102 mmol/L Normal 98-107 [facility] Comment on above: Performed By: #### V D25, FE, T4, GLYHGB, FT3, CORTI, LIPR, INSU #### [address] [address] Apiculture Teacher: Bala Borges MD #### CP, TSH, CDP #### [facility] [address] [place] [place] [address] Apiculture Teacher: Gage Barraza MD CO2 [Moles/Vol] 24 mmol/L Normal 20-31 [facility] Comment on above: Performed By: #### V D25, FE, T4, GLYHGB, FT3, CORTI, LIPR, INSU #### [facility] [address] [place], [place] [id number] Apiculture Teacher: Bala Borges MD #### CP, TSH, CDP #### [facility] [address] [place] [address] Apiculture Teacher: Gage Barraza MD Creatinine [Mass/Vol] 0.5 mg/dL Normal 0.5-0.9 [facility] Comment on above: Performed By: #### V D25, FE, T4, GLYHGB, FT3, CORTI, LIPR, INSU #### [facility] [address] [place], [place] 1428108 Apiculture Teacher: Bala Borges MD #### CP, TSH, CDP #### [address] [place] [address] Apiculture Teacher: Gage Barraza MD GFR/1.73 sq M.predicted among non-blacks MDRD (S/P/Bld) [Vol rate/Area] mL/min/{1.73_m2} Normal >60 [facility] Comment on above: Result Comment: These [...] T4, GLYHGB, FT3, CORTI, LIPR, INSU #### [address] [address] Apiculture Teacher: Bala Borges MD #### CP, TSH, CDP #### [address] [place], [place] 0302783 Apiculture Teacher: Gage Barraza MD Glucose [Mass/Vol] 84 mg/dL Normal 70-99 [facility] Comment on above: Performed By: #### V D25, FE, T4, GLYHGB, FT3, CORTI, LIPR, INSU #### [address] [address] Apiculture Teacher: Bala Borges MD #### CP, TSH, CDP #### [address] [place], [place] 5966983 Apiculture Teacher: Gage Barraza MD Potassium [Moles/Vol] 4.1 mmol/L Normal 3.7-5.3 [facility] Comment on above: Performed By: #### V D25, FE, T4, GLYHGB, FT3, CORTI, LIPR, INSU #### [address] [address] Apiculture Teacher: Bala Borges MD #### CP, TSH, CDP #### [address] [place], [place] [id number] Apiculture Teacher: Gage Barraza MD Protein [Mass/Vol] 7.2 g/dL Normal 6.4-8.3 [facility] Comment on above: Performed By: #### V D25, FE, T4, GLYHGB, FT3, CORTI, LIPR, INSU #### [address] [address] Apiculture Teacher: Bala Borges MD #### CP, TSH, CDP #### [address] [place], [place] [id number] Apiculture Teacher: Gage Barraza MD Sodium [Moles/Vol] 135 mmol/L Normal 135-144 [facility] Comment on above: Performed By: #### V D25, FE, T4, GLYHGB, FT3, CORTI, LIPR, INSU #### [address] [place] [address] Apiculture Teacher: Bala Borges MD #### CP, TSH, CDP #### [address] [place], [place] [phone] Apiculture Teacher: Gage Barraza MD Urea nitrogen [Mass/Vol] 9 mg/dL Normal 6-20 [facility] Comment on above: Performed By: #### V D25, FE, T4, GLYHGB, FT3, CORTI, LIPR, INSU #### [address] [address] Apiculture Teacher: Bala Borges MD #### CP, TSH, CDP #### [address] [place] [address] Apiculture Teacher: Gage Barraza MD Thyroid Stim. Horm.on 2023 Thyroid Stim. Horm. 2.74 uIU/mL Normal 0.30-5.00 [facility] Comment on above: Performed By: #### V D25, FE, T4, GLYHGB, FT3, CORTI, LIPR, INSU ####[address] [place] [address] Lab Director: Bala Borges MD#### CP, TSH, CDP ####[address] [place] [address] Lab Director: Gage Barraza MD CBCon 01-09-2023 Erythrocyte distribution width (RBC) [Ratio] 13.4 % Normal 11.8-14.4 [facility] Comment on above: Performed By: #### V D25 #### [address] [id number] Apiculture Teacher: Bala Borges MD #### CP, CBC #### [facility] [address] [place] [address] [place] [address] Apiculture Teacher: Gage Barraza MD Hematocrit (Bld) [Volume fraction] 39.6 % Normal 36.3-47.1 [facility] Comment on above: Performed By: #### V D25 #### [address] [address] Apiculture Teacher: Bala Borges MD #### CP, CBC #### [facility] [address] [place] [address] [place] [address] Apiculture Teacher: Gage Barraza MD Hemoglobin (Bld) [Mass/Vol] 13.4 g/dL Normal 11.9-15.1 [facility] Comment on above: Performed By: #### V D25 #### [address] [address] Apiculture Teacher: Bala Borges MD #### CP, CBC #### [facility] [address] [place] [address] [place] [address] Apiculture Teacher: Gage Barraza MD MCH (RBC) [Entitic mass] 27.9 pg Normal 25.2-33.5 [facility] Comment on above: Performed By: #### V D25 #### [address] [address] Apiculture Teacher: Bala Borges MD #### CP, CBC #### [address] [place] [address] Apiculture Teacher: Gage Barraza MD MCHC (RBC) [Mass/Vol] 33.8 g/dL Normal 28.4-34.8 [facility] Comment on above: Performed By: #### V D25 #### [address] [address] Apiculture Teacher: Bala Borges MD #### CP, CBC #### [facility] [address] [place] [address] Apiculture Teacher: Gage Barraza MD MCV (RBC) [Entitic vol] 82.5 fL Low 82.6-102.9 [facility] Comment on above: Performed By: #### V D25 #### [address] [address] Apiculture Teacher: Bala Borges MD #### CP, CBC #### [facility] [address] [place] [address] Apiculture Teacher: Gage Barraza MD NRBC Automated 0.0 per 100 WBC Normal 0.0 [facility] Comment on above: Performed By: #### V D25 #### [address] [address] Apiculture Teacher: Bala Borges MD #### CP, CBC #### [facility] [address] [place] [id number] Apiculture Teacher: Gage Barraza MD Platelet mean volume (Bld) [Entitic vol] 10.4 fL Normal 8.1-13.5 [facility] Comment on above: Performed By: #### V D25 #### [address] [address] Apiculture Teacher: Bala Borges MD #### CP, CBC #### [facility] [address] [place] [address] Dr. [place] [id number] Apiculture Teacher: Gage Barraza MD Platelets (Bld) [#/Vol] 333 10*3/uL Normal 138-453 [facility] Comment on above: Performed By: #### V D25 #### [address] [address] Apiculture Teacher: Bala Borges MD #### CP, CBC #### [facility] [address] [place], [place] [id number] Apiculture Teacher: Gage Barraza MD RBC (Bld) [#/Vol] 4.80 10*6/uL Normal 3.95-5.11 [facility] Comment on above: Performed By: #### V D25 #### [address] [place] [address] Apiculture Teacher: Bala Borges MD #### CP, CBC #### [facility] [address] [place] [address] Dr. [place], [place] [phone] Apiculture Teacher: Gage Barraza MD WBC (Bld) [#/Vol] 10.7 10*3/uL Normal 4.5-13.5 [facility] Comment on above: Performed By: #### V D25 #### [address] [address] Apiculture Teacher: Bala Borges MD #### CP, CBC #### [facility] [address] [place] [address] [place], [place] [phone] Apiculture Teacher: Gage Barraza MD Comp Metabolic Profon 2022 Albumin [Mass/Vol] 4.8 g/dL Normal 3.5-5.2 [facility] Comment on above: Performed By: #### V D25 #### [address] [address] Apiculture Teacher: Bala Borges MD #### CP, CBC #### [facility] [address] [place] [address] [place], [place] [id number] Apiculture Teacher: Gage Barraza MD Albumin/Glob Ratio 1.5 Normal 1.0-2.5 [facility] Comment on above: Performed By: #### V D25 #### [address] [address] Apiculture Teacher: Bala Borges MD #### CP, CBC #### [facility] [address] [place], [place] [phone] Apiculture Teacher: Gage Barraza MD Alkaline Phos 72 U/L Normal 35-104 [facility] Comment on above: Performed By: #### V D25 #### [address] [place] [address] Apiculture Teacher: Bala Borges MD #### CP, CBC #### [address] [place], [place] [phone] Apiculture Teacher: Gage Barraza MD ALT [Catalytic activity/Vol] 30 U/L Normal 5-33 [facility] Comment on above: Performed By: #### V D25 #### [address] [address] Apiculture Teacher: Bala Borges MD #### CP, CBC #### [address] [place], [place] [phone] Apiculture Teacher: Gage Barraza MD Anion gap [Moles/Vol] 13 mmol/L Normal 9-17 [facility] Comment on above: Performed By: #### V D25 #### [address] [address] Apiculture Teacher: Bala Borges MD #### CP, CBC #### [address] [place], [place] 112[address]83 Apiculture Teacher: Gage Barraza MD AST [Catalytic activity/Vol] 37 U/L High <32 [facility] Comment on above: Performed By: #### V D25 #### [address] [address] Apiculture Teacher: Bala Borges MD #### CP, CBC #### [address] [place], [place] [id number] Apiculture Teacher: Gage Barraza MD Bilirubin [Mass/Vol] 0.4 mg/dL Normal 0.3-1.2 [facility] Comment on above: Performed By: #### V D25 #### [facility] [address] [place] [address] Apiculture Teacher: Bala Borges MD #### CP, CBC #### [facility] [address] [place], [place] 6351183 Apiculture Teacher: Gage Barraza MD BUN/CRE Ratio 17 Normal 9-20 [facility] Comment on above: Performed By: #### V D25 #### [address] [address] Apiculture Teacher: Bala Borges MD #### CP, CBC #### [facility] [address] [place], [place] 9133083 Apiculture Teacher: Gage Barraza MD Calcium [Mass/Vol] 9.7 mg/dL Normal 8.6-10.4 [facility] Comment on above: Performed By: #### V D25 #### [address] [address] Apiculture Teacher: Bala Borges MD #### CP, CBC #### [facility] [address] [place] [address] Dr. [place], [place] [phone] Apiculture Teacher: Gage Barraza MD Chloride [Moles/Vol] 104 mmol/L Normal 98-107 [facility] Comment on above: Performed By: #### V D25 #### [address] [address] Apiculture Teacher: Bala Borges MD #### CP, CBC #### [facility] [address] [place], [place] [phone] Apiculture Teacher: Gage Barraza MD CO2 [Moles/Vol] 24 mmol/L Normal 20-31 [facility] Comment on above: Performed By: #### V D25 #### [address] [place] [address] Apiculture Teacher: Bala Borges MD #### CP, CBC #### [facility] [address] [place] [address] Dr. [place], [place] [phone] Apiculture Teacher: Gage Barraza MD Creatinine [Mass/Vol] 0.6 mg/dL Normal 0.5-0.9 [facility] Comment on above: Performed By: #### V D25 #### [address] [address] Apiculture Teacher: Bala Bogres MD #### CP, CBC #### [address] [place] [address] Apiculture Teacher: Gage Barraza MD GFR/1.73 sq M.predicted among non-blacks MDRD (S/P/Bld) [Vol rate/Area] mL/min/{1.73_m2} Normal >60 [facility] Comment on above: Result Comment: These [...] secretion. Performed By: #### V D25 #### [address] [address] Apiculture Teacher: Bala Borges MD #### CP, CBC #### [facility] [address] [place] [address] [place] [address] Apiculture Teacher: Gage Barraza MD Glucose [Mass/Vol] 98 mg/dL Normal 70-99 [facility] Comment on above: Performed By: #### V D25 #### [address] [address] Apiculture Teacher: Bala Borges MD #### CP, CBC #### [facility] [address] [place], [place] 705[address]83 Apiculture Teacher: Gage Barraza MD Potassium [Moles/Vol] 4.0 mmol/L Normal 3.7-5.3 [facility] Comment on above: Performed By: #### V D25 #### [address] [address] Apiculture Teacher: Bala Borges MD #### CP, CBC #### [facility] [address] [place] [address] Apiculture Teacher: Gage Barraza MD Protein [Mass/Vol] 8.0 g/dL Normal 6.4-8.3 [facility] Comment on above: Performed By: #### V D25 #### [address] [address] Apiculture Teacher: Bala Borges MD #### CP, CBC #### [facility] [address] [place] [address] Dr. [place], [place] [phone] Apiculture Teacher: Gage Barraza MD Sodium [Moles/Vol] 141 mmol/L Normal 135-144 [facility] Comment on above: Performed By: #### V D25 #### [address] [address] Apiculture Teacher: Bala Borges MD #### CP, CBC #### [facility] [address] [place], [place] 0348283 Apiculture Teacher: Gage Barraza MD Urea nitrogen [Mass/Vol] 10 mg/dL Normal 6-20 [facility] Comment on above: Performed By: #### V D25 #### [address] [address] Apiculture Teacher: Bala Borges MD #### CP, CBC #### [facility] [address] [place] [address] [place] [address] Apiculture Teacher: Gage Barraza MD Vitamin D 25 OHon 01-09-2023 Vitamin D 25 [place] 25.6 ng/mL Low 30.0-100.0 [facility] Comment on above: Result Comment: Reference Range: Vitamin D status Range Deficiency <20 ng/mL Mild Deficiency 20-30 ng/mL Sufficiency 30-100 ng/mL Toxicity >100 ng/mL Performed By: #### V D25 #### [facility] [address] [place], [place] [id number] Apiculture Teacher: Bala Borges MD #### CP, CBC #### [address] [place] [address] Apiculture Teacher: Gage Barraza MD Audiology Office/Clinic Note on 01-03-2023 Audiology Office/Clinic Note HEARING AID Dispense BACKGROUND INFORMATION: Name: Blanka Farias Age: 22 Sex: female Previous Hearing Aid Use: no Associated ENT: Huff Etiology of HL: history of chronic middle ear issues DEVICES FITTING Binaural MAKE Phonak MODEL Audeo L30-RL SERIAL # R: [id number] L: [id number] WARRANTY 03/10/28 COLOR black REC. LENGTH 1M COUPLING cshell: R - [id number] ([id number]) L - [id number] ([id number]) remake: 03/12/23 BATTERY rechargeable FITTING Real ear [...] 2) Bill medicaid $2500. Electronically signed by Matheus Hernandez Jackie Briggs 01/03/23 10:12 EDT Normal [facility] Audiology Office/Clinic Note on 11-29-2022 Audiology Office/Clinic Note BACKGROUND INFORMATION: Name: Blanka Farias Age: 22 Sex: female Previous Hearing Aid Use: no Associated ENT: Refugio Etiology of HL: unknown - history of [...] 2. No charge today Electronically signed by Matheus Jackie Hernandez 11/29/22 12:36 EDT Normal [facility] Otolaryngology Office/Clinic Noteon 09-04-2022 Otolaryngology Office/Clinic Note [...] data Procedure/Surgical History Ankle surgery x 3 [facility] Medications Nortrel oral tablet Plus Low Iron oral tablet, 1 tabs, Oral, Daily Allergies Topamax (Hives) Grass (unknown) smoke (unknown) Social History Alcohol Never Sexual Sexually active: Yes. Substance Abuse Denies All Tobacco Never (less than 100 in lifetime) Use:. Electronically signed by Larry Huff MD, Chi 09/04/22 13:59 EDT Normal [facility] Urinalysis with Microscopico n 08-29-2022 Bacteria, UA 1+ Abnormal None [facility] Bilirubin Urine Negative NEGATIVE [facility] [employer] Color, UA Yellow Yellow [facility] Epithelial Cells UA 10 TO 20 [facility] [employer] Glucose Auto test strip (U) [Mass/Vol] Negative NEGATIVE [facility] Interpretation and review of laboratory results Abnormal [facility] Ketones (U) [Mass/Vol] Negative NEGATIVE [facility] Leukocyte esterase Auto test strip Ql (U) MODERATE Abnormal NEGATIVE [facility] Nitrite Auto test strip Ql (U) Negative NEGATIVE [facility] Protein (U) [Mass/Vol] 6.0 mg/dL 5.0 - 9.[address] [facility] [address] [facility] Protein (U) [Mass/Vol] Negative NEGATIVE [facility] RBC clumps Auto (Urine sed) [#/Area] 0 TO 2 [facility] Specific [place], UA Low 1.010 - 1.020 [facility] Turbidity UA SLIGHTLY CLOUDY Abnormal Clear [facility] Urine Hgb Negative NEGATIVE [facility] Urobilinogen, Urine Normal Normal [facility] WBC, UA 20 TO 50 [facility] XR WRIST LEFT (MIN 3 VIEWS)o n 06-20-2022 Normal wrist radiographs [facility] EXAMINATION: XRAY VIEWS OF THE LEFT WRIST 06/20/2022 3:55 pm COMPARISON: None. HISTORY: ORDERING SYSTEM PROVIDED HISTORY: Pain FINDINGS: Carpal bones and alignment are maintained. Distal radius and ulna are intact. No acute fracture or dislocation. [facility] Nirmal Haskins DO - 06/20/2022 EXAMINATION: XRAY VIEWS OF THE LEFT WRIST 06/20/2022 3:55 pm COMPARISON: None. HISTORY: ORDERING SYSTEM PROVIDED HISTORY: Pain FINDINGS: Carpal bones and alignment are maintained. Distal radius and ulna are intact. No acute fracture or dislocation. IMPRESSION: Normal wrist radiographs [facility] [employer] Work Phone: Radiology Study observation (narrative) [facility] [employer] Work Phone: XR WRIST LEFT (MIN 3 VIEWS)O rdered By: Nirmal Haskins on 06-20-2022 [facility] Work Phone: Otolaryngology Office/Clinic Noteon 06-14-2022 [...] data Procedure/Surgical History Ankle surgery x 3 [place] Medications Nortrel oral tablet Plus Low Iron oral tablet, 1 tabs, Oral, Daily Allergies Topamax (Hives) Grass (unknown) smoke (unknown) Social History Alcohol Never Sexual Sexually active: Yes. Substance Abuse Denies All Tobacco Never (less than 100 in lifetime) Use:. Electronically signed by Larry Huff MD, Chi 06/14/22 13:02 EST Normal [facility] C Earon 05-20-2022 C Ear -- - [...] <=1 V Vancomycin S 1 V Normal [facility] Comment on above: Performed By: #### C ULEAR #### [facility] [address] [place] [address] [facility] [address] [place] [address] Otolaryngology Office/Clinic Noteon 05-17-2022 Otolaryngology Office/Clinic Note Chief Complaint pt statea both my ears are causing me grief History of Present Illness Matheus is a very pleasant 89-year-old female who presents for follow-up. She has extensive history of chronic ear disease. She has had 7 sets of ear tubes with last set of T-tubes placed in 2016. He has a longstanding history of chronic [...] mL, 3 Refill(s), 07/12/22 15:35:00 EDT, Pharmacy: [facility]/pharmacy #[id number] Medical Decision Making Chronic conditions NOT treated [...] data Procedure/Surgical History Ankle surgery x 3 [facility] Medications cefdinir 300 mg oral capsule, 300 mg= 1 caps, Oral, BID Ciprodex 0.3%-0.1% otic suspension, 4 drops, Ear-Both, BID, 3 refills Plus Low Iron oral tablet, 1 tabs, Oral, Daily Allergies Topamax (Hives) Gras (more content not included)... Normal [facility] CNOVon 03-09-2022 [place] Office Visit (NISHI ) BLANKA FARIAS ([id number]) 4 F Date Time Provider Department 03/09/22 [...] [place] arthroscopic surgery ? 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 History of degenerative joint disease spine? Per mother PCP: Louise Lemos MD, MD No past medical history on [...] PROT, URICACID, HBA1C, VITD25 in the last [id number] hours. X-ray reviewed from RIGHT ANKLE consistent [...] Talar Dome (more content not included)... Normal [facility] XR WRIST RIGHT (MIN 3 VIEWS) on 03-09-2022 Normal wrist radiographs [facility] EXAMINATION: XRAY VIEWS OF THE RIGHT WRIST 03/07/2022 2:33 pm COMPARISON: None. HISTORY: ORDERING SYSTEM PROVIDED HISTORY: Right wrist pain FINDINGS: Carpal bones and alignment are maintained. Distal radius and ulna are intact. No acute fracture or dislocation. [facility] Nirmal Haskins DO - 03/09/2022 EXAMINATION: XRAY VIEWS OF THE RIGHT WRIST 03/07/2022 2:33 pm COMPARISON: None. HISTORY: ORDERING SYSTEM PROVIDED HISTORY: Right wrist pain FINDINGS: Carpal bones and alignment are maintained. Distal radius and ulna are intact. No acute fracture or dislocation. IMPRESSION: Normal wrist radiographs [employer] Work Phone: XR WRIST RIGHT (MIN 3 VIEWS) Ordered By: Nirmal Haskins on 03-09-2022 [employer] Work Phone: XR WRIST RIGHT (MIN 3 VIEWS) on 03-07-2022 Radiology Study observation (narrative) [employer] Work Phone: Comprehensive Metabolic Pane crystal 02-19-2022 Albumin [Mass/Vol] 4.9 g/dL 3.5 - 5.2 g/dL [facility] Albumin/Globulin [Mass ratio] 1.5 {ratio} 1.0 - 2.5 [facility] ALP (Bld) [Catalytic activity/Vol] 64 U/L 35 - 104 U/L [facility] ALT [Catalytic activity/Vol] 16 U/L 5 - 33 U/L [facility] Anion gap [Moles/Vol] 13 mmol/L 9 - 17 mmol/L [facility] AST [Catalytic activity/Vol] 27 U/L NINF - 32 U/L [facility] Bilirubin [Mass/Vol] 0.3 mg/dL 0.3 - 1 .2 mg/dL [facility] Calcium [Mass/Vol] 9.6 mg/dL 8.6 - 10. 4 mg/dL [facility] Chloride [Moles/Vol] 103 mmol/L 98 - 10 7 mmol/L [facility] CO2 [Moles/Vol] 25 mmol/L 20 - 31 mmol/L [facility] Creatinine [Mass/Vol] 0.59 mg/dL 0.50 - 0.90 mg/dL [facility] GFR/1.73 sq M.predicted MDRD (S/P/Bld) [Vol rate/Area] - PINF [facility] Comment on above: Effective Jan 29, 2022 [...] [Mass/Vol] 75 mg/dL 70 - 99 mg/dL [facility] Interpretation and review of laboratory results Abnormal [facility] Potassium [Moles/Vol] 3.8 mmol/L 3.7 - 5.3 mmol/L [facility] Protein [Mass/Vol] 8.1 g/dL 6.4 - 8.3 g/dL [facility] Sodium [Moles/Vol] 141 mmol/L 135 - 144 mmol/L [facility] Urea nitrogen (BldV) [Mass/Vol] 15 mg/dL 6 - 20 mg/dL [facility] Urea nitrogen/Creatinine (Bld) [Mass ratio] 25 High 9 - 20 [facility] Urinalysis with Microscopico n 02-19-2022 Bacteria, UA 1+ Abnormal None [facility] Bilirubin Urine Negative NEGATIVE [facility] Color, UA Yellow Yellow [facility] Epithelial Cells UA 0 TO 2 [facility] Glucose, Ur TRACE Abnormal NEGATIVE [facility] Interpretation and review of laboratory results Abnormal [facility] Ketones Ql (U) Negative NEGATIVE [facility] Leukocyte esterase Test strip Ql (U) TRACE Abnormal NEGATIVE [facility] Nitrite, Urine Negative NEGATIVE [facility] pH, UA 6.0 5.0 - 9.0 [facility] Protein, UA TRACE Abnormal NEGATIVE [facility] RBC, UA 50 TO 100 [facility] Specific [place], UA 1.020 1.010 - 1.020 [facility] Turbidity UA SLIGHTLY CLOUDY Abnormal Clear [facility] Urine Hgb 3+ Abnormal NEGATIVE [facility] Urobilinogen, Urine Normal Normal [facility] WBC, UA 5 TO 10 [facility] Ara 02-07-2022 CNOV Office Visit (LOORRM ) BLANKA FARIAS ([id number]) 4 F Date Time Provider Department 02/07/22 11:00 AM RK RENDON During your visit today, we recorded the following information about you: Rk Rendon DPM 02/07/2022 2:48 PM Signed [facility] Department of Orthopedics [facility] Orthopedic Surgery Name: Blanka Farias Date of [...] Radiographs: Right ankle radiographs from 01/12/2022 from [facility] reveal unusual shape to the dorsal talar dome with almost some lateral tilt A right ankle MRI performed on 01/18/2022 from [facility]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 Rk Rendon DPM Referring Provider: LOUISE LEMOS [[id number]] Allergies As of Date: 02/07/2022 Noted Allergy Reaction [id number] 03/11/2013 14 - Other: See Comments Comments: [...] Status:Closed by RK RENDON on 02/07/22 Normal [facility] MRI ANKLE RT WO CONon 2021 MRI [...] GAGE JACK Date: 2022-01-20 17:17 Normal [facility] CBC AUTO DIFFon 01-12-2022 BASO # 0.1 103/ul Normal 0.0-0.1 [facility] Comment on above: Performed By: #### U MICRO, UARMICR #### [facility] [address] [place] [address] Dr. Bertha Duncan Basophils/100 WBC (Bld) 0.5 % Normal 0.2-2.0 [facility] Comment on above: Performed By: #### U MICRO, UARMICR #### [facility] [address] [place] [address] Dr. Bertha Duncan EO # 0.3 103/ul Normal 0.0-0.7 [facility] Comment on above: Performed By: #### U MICRO, UARMICR #### [facility] [address] [place] [address] [address] Bertha Duncan Eosinophils/100 WBC (Bld) 2.1 % Normal 0.9-7.0 [facility] Comment on above: Performed By: #### U MICRO, UARMICR #### [facility] [address] [place] [address] Dr. Bertha Duncan Erythrocyte distribution width (RBC) [Ratio] 13.8 % Normal 11.0-15.0 [facility] Comment on above: Performed By: #### U MICRO, UARMICR #### [facility] [address] [place] [address] Dr. Bertha Duncan Hematocrit (Bld) [Volume fraction] 39.1 % Normal 36.0-48.0 [facility] Comment on above: Performed By: #### U MICRO, UARMICR #### [facility] [address] [place] [address] Dr. Bertha Duncan Hemoglobin (Bld) [Mass/Vol] 13.1 g/dL Normal 12.0-16.0 [facility] [place] Comment on above: Performed By: #### U MICRO, UARMICR #### [facility] [address] [place] [address] Dr. Bertha Duncan IG # 0.05 10e3/ul Critically high 0.00-0.03 [facility] Comment on above: Performed By: #### U MICRO, UARMICR #### [facility] [address] [place] [address] Dr. Bertha Duncan IG % 0.4 % Normal 0.0-0.5 [facility] [place] Comment on above: Performed By: #### U MICRO, UARMICR #### [facility] [address] [place] [address] Dr. Bertha Duncan LYMPH # 3.1 103/ul Normal 1.2-3.8 [facility] [place] Comment on above: Performed By: #### U MICRO, UARMICR #### [facility] [address] [place] [address] Dr. Bertha Duncan Lymphocytes/100 WBC (Bld) 23.9 % Normal 20.5-60.0 [facility] [place] Comment on above: Performed By: #### U MICRO, UARMICR #### [facility] [address] [place] [address] Dr. Bertha Duncan MANUAL DIFF REQ NO Normal [facility] Comment on above: Performed By: #### U MICRO, UARMICR #### [facility] [address] [place] [address] Dr. Bertha Duncan MCH (RBC) [Entitic mass] 27.1 pg Normal 26.7-34.0 [facility] [place] Comment on above: Performed By: #### U MICRO, UARMICR #### [facility] [address] [place] [address] Dr. Bertha Duncan MCHC (RBC) [Mass/Vol] 33.5 g/dL Normal 29.9-35.2 [facility] Comment on above: Performed By: #### U MICRO, UARMICR #### [facility] [address] [place] [address] Dr. Bertha Duncan MCV (RBC) [Entitic vol] 81.0 fL Normal 81.0-99.0 [facility] [place] Comment on above: Performed By: #### U MICRO, UARMICR #### [facility] [address] [place] [address] Dr. Bertha Duncan MONO # 0.8 103/ul Normal 0.3-0.8 [facility] [place] Comment on above: Performed By: #### U MICRO, UARMICR #### [facility] [address] [place] [address] Dr. Bertha Duncan Monocytes/100 WBC (Bld) 5.8 % Normal 1.7-12.0 [facility] [place] Comment on above: Performed By: #### U MICRO, UARMICR #### [facility] [address] [place] [address] Dr. Bertha Duncan NEUT # 8.7 103/ul Critically high 1.4-6.5 [facility] Comment on above: Performed By: #### U MICRO, UARMICR #### [facility] [address] [place] [address] Dr. Bertha Duncan Neutrophils/100 WBC (Bld) 67.3 % Normal 43.0-75.0 [facility] [place] Comment on above: Performed By: #### U MICRO, UARMICR #### [facility] [address] [place] [address] Dr. Bertha Duncan Platelet mean volume (Bld) [Entitic vol] 9.8 fL Normal 9.5-13.5 [facility] [place] Comment on above: Performed By: #### U MICRO, UARMICR #### [facility] [address] [place] [address] Dr. Bertha Duncan PLT 369 103/ul Normal 150-450 [facility] [place] Comment on above: Performed By: #### U MICRO, UARMICR #### [facility] [address] [place] [address] Dr. Bertha Duncan RBC 4.83 106/ul Normal 4.20-5.40 [facility] [place] Comment on above: Performed By: #### U MICRO, UARMICR #### [facility] [address] [place] [address] Dr. Bertha Duncan WBC 12.9 103/ul Critically high 4.0-11.0 [facility] Comment on above: Performed By: #### U MICRO, UARMICR #### [facility] [address] [place] [address] Dr. Bertha Duncan CULTURE URINEon 01-12-2022 CULTURE URINE Culture Observations : HEAVY GROWTH OF MIXED GENITAL BEAU. NO POTENTIAL PATHOGENS SEEN. Normal [facility] Comment on above: Performed By: #### U MICRO, UARMICR #### [facility] [address] [place] [address] Dr. Bertha Duncan PROF 14(COMP METB)on 022 Albumin [Mass/Vol] 4.1 g/dL Normal 3.4-5.0 [facility] Comment on above: Performed By: #### C MP #### [facility] [address] [place] [address] Dr. Bertha Duncan Albumin/Globulin [Mass ratio] 1.0 {ratio} Normal [facility] [place] Comment on above: Performed By: #### C MP #### [facility] [address] [place] [address] Dr. Bertha Duncan ALP [Catalytic activity/Vol] 57 U/L Normal 46-116 [facility] Comment on above: Performed By: #### C MP #### [facility] [address] [place] [address] Dr. Bertha Duncan ALT [Catalytic activity/Vol] 19 U/L Normal 14-59 [facility] [place] Comment on above: Performed By: #### C MP #### [facility] [address] [address] [address] Bertha Duncan Anion gap [Moles/Vol] 12.5 mmol/L Normal [facility] Comment on above: Performed By: #### C MP #### [facility] [address] [address] [address] Bertha Duncan AST [Catalytic activity/Vol] 23 U/L Normal 15-37 [facility] [place] [facility] Comment on above: Performed By: #### C MP #### [facility] [address] [address] [address] Bertha Duncan Bilirubin [Mass/Vol] 0.2 mg/dL Normal 0.2-1.0 [facility] [place] Comment on above: Performed By: #### C MP #### [facility] [address] [address] [address] Bertha Duncan Calcium [Mass/Vol] 9.3 mg/dL Normal 8.5-10.1 [facility] Comment on above: Performed By: #### C MP #### [facility] [address] [address] [address] Bertha Duncan Chloride [Moles/Vol] 104 mmol/L Normal 98-107 [facility] [place] Comment on above: Performed By: #### C MP #### [facility] [address] [address] [address] Bertha Duncan CO2 [Moles/Vol] 23.2 mmol/L Normal 21.0-32.0 [facility] Comment on above: Performed By: #### C MP #### [facility] [address] [address] [address] Bertha Duncan Creatinine [Mass/Vol] 0.62 mg/dL Normal 0.55-1.02 [facility] [place] Comment on above: Performed By: #### C MP #### [facility] [address] [place] [address] Dr. Bertha Duncan EGFR-AF ZIMBABWEAN >60 Normal >=60 [facility] Comment on above: Performed By: #### C MP #### [facility] [address] [address] [address] Bertha Duncan EGFR-NON AF ZIMBABWEAN >60 Normal >=60 [facility] [place] Comment on above: Performed By: #### C MP #### [facility] [address] [place] [address] Dr. Bertha Duncan Globulin (S) [Mass/Vol] 4.0 g/dL Normal [facility] [place] Comment on above: Performed By: #### C MP #### [facility] [address] [place] [address] Dr. Bertha Duncan Glucose [Mass/Vol] 83 mg/dL Normal 74-106 [facility] Comment on above: Performed By: #### C MP #### [facility] [address] [place] [address] Dr. Bertha Duncan Potassium [Moles/Vol] 3.7 mmol/L Normal 3.5-5.1 [facility] [place] Comment on above: Performed By: #### C MP #### [facility] [address] [place] [address] Dr. Bertha Duncan Protein [Mass/Vol] 8.1 g/dL Normal 6.4-8.2 [facility] Comment on above: Performed By: #### C MP #### [facility] [address] [place] [address] Dr. Bertha Duncan Sodium [Moles/Vol] 136 mmol/L Normal 136-145 [facility] Comment on above: Performed By: #### C MP #### [facility] [address] [place] [address] Dr. Bertha Duncan Urea nitrogen [Mass/Vol] 16.0 mg/dL Normal 6.4-19.3 [facility] [place] Comment on above: Performed By: #### C MP #### [facility] [address] [place] [address] Dr. Bertha Duncan Urea nitrogen/Creatinine [Mass ratio] 25.8 mg/mg Normal [facility] [place] [facility] Comment on above: Performed By: #### C MP #### [facility] [address] [place] [address] Dr. Bertha Duncan UA RANDOM W/MICROSCOPICon BACTERIA NONE SEEN Normal NONE SEEN [facility] Comment on above: Performed By: #### U AMIC #### [facility] [address] [address] [address] Bertha Duncan Bilirubin Ql (U) Negative Normal NEGATIVE [facility] Comment on above: Performed By: #### U AMIC #### [facility] [address] [place] [address] Dr. Bertha Duncan CAST NONE SEEN Normal NONE SEEN [facility] Comment on above: Performed By: #### U AMIC #### [facility] [address] [address] [address] Bertha Duncan Clarity (U) CLEAR Normal CLEAR [facility] Comment on above: Performed By: #### U AMIC #### [facility] [address] [place] [address] Dr. Bertha Duncan Color (U) LT. YELLOW Normal YELLOW [facility] Comment on above: Performed By: #### U AMIC #### [facility] [address] [address] [address] Bertha Duncan Crystals LM Nom (Urine sed) NONE SEEN Normal NONE SEEN [facility] Comment on above: Performed By: #### U AMIC #### [facility] [address] [place] [address] Dr. Bertha Duncan Epithelial cells LM Ql (Urine sed) MODERATE Abnormal NONE SEEN /RARE [facility] Comment on above: Performed By: #### U AMIC #### [facility] [address] [place] [address] Dr. Bertha Duncan Glucose Ql (U) Negative Normal NEGATIVE [facility] Comment on above: Performed By: #### U AMIC #### [facility] [address] [address] [address] Bertha Duncan Hemoglobin Ql (U) Negative Normal NEGATIVE [facility] Comment on above: Performed By: #### U AMIC #### [facility] [address] [place] [address] Dr. Bertha Duncan Ketones Ql (U) Negative Normal NEGATIVE [facility] Comment on above: Performed By: #### U AMIC #### [facility] [address] [address] [address] Bertha Duncan LEUKOCYTES TRACE Abnormal NEGATIVE [facility] [place] Comment on above: Performed By: #### U AMIC #### [facility] [address] [address] [address] Bertha Duncan MUCOUS NONE SEEN Normal NONE SEEN [facility] Comment on above: Performed By: #### U AMIC #### [facility] [address] [address] [address] Bertha Duncan Nitrite Ql (U) Negative Normal NEGATIVE [facility] Comment on above: Performed By: #### U AMIC #### [facility] [address] [place] [address] Dr. Bertha Duncan pH (U) 6.0 [pH] Normal 5-9 [facility] Comment on above: Performed By: #### U AMIC #### [facility] [address] [place] [address] Dr. Bertha Duncan RBC NONE SEEN Abnormal 0-2 [facility] Comment on above: Performed By: #### U AMIC #### [facility] [address] [place] [address] Dr. Bertha Duncan SPEC GRAVITY 1.005 Normal 1.005-<=1.0 25 [facility] [place] Comment on above: Performed By: #### U AMIC #### [facility] [address] [address] [address] Bertha Duncan UA PROTEIN Negative Normal NEGATIVE/ TRACE [facility] Comment on above: Performed By: #### U AMIC #### [facility] [address] [place] [address] Dr. Bertha Duncan Urobilinogen Qn (U) 0.2 {[place]'U}/dL Normal 0.2 - 1. 0 [facility] Comment on above: Performed By: #### U AMIC #### [facility] [address] [address] [address] Bertha Duncan WBC 0-2 Abnormal NONE SEEN [facility] Comment on above: Performed By: #### U AMIC #### [facility] [address] [address] [address] Bertha Duncan Urinalysis with Microscopico n 01-02-2022 Bacteria, UA 1+ Abnormal None [facility] Bilirubin Urine Negative NEGATIVE [facility] Color, UA Yellow Yellow [facility] Epithelial Cells UA 5 TO 10 [facility] Glucose, Ur 1+ Abnormal NEGATIVE [facility] Interpretation and review of laboratory results Abnormal [facility] Ketones Ql (U) Negative NEGATIVE [facility] Leukocyte esterase Test strip Ql (U) MODERATE Abnormal NEGATIVE [facility] Nitrite, Urine Negative NEGATIVE [facility] pH, UA 6.5 5 - 9 [facility] Protein, UA Negative NEGATIVE [facility] RBC, UA 0 TO 2 [facility] Specific [place], UA 1.010 1.01 - 1.02 [facility] Turbidity UA SLIGHTLY CLOUDY Abnormal Clear [facility] Urine Hgb Negative NEGATIVE [facility] Urobilinogen, Urine Normal Normal [facility] WBC, UA 5 TO 10 [facility] CULTURE URINEon 11-21-2021 CULTURE URINE Culture Observations : NO GROWTH. Normal [facility] Comment on above: Performed By: #### U MICRO, UARMICR #### [facility] [address] [address] [address] Bertha Duncan PROF CHEM 8 (BAS METB)on Anion gap [Moles/Vol] 11.2 mmol/L Normal [facility] Comment on above: Performed By: #### U MICRO, UARMICR #### [facility] [address] [address] [address] Bertha Duncan Calcium [Mass/Vol] 9.0 mg/dL Normal 8.5-10.1 [facility] Comment on above: Performed By: #### U MICRO, UARMICR #### [facility] [address] [address] [address] Bertha Duncan Chloride [Moles/Vol] 106 mmol/L Normal 98-107 [facility] Comment on above: Performed By: #### U MICRO, UARMICR #### [facility] [address] [address] [address] Bertha Duncan CO2 [Moles/Vol] 25.7 mmol/L Normal 21.0-32.0 [facility] Comment on above: Performed By: #### U MICRO, UARMICR #### [facility] [address] [address] [address] Bertha Duncan Creatinine [Mass/Vol] 0.74 mg/dL Normal 0.55-1.02 [facility] [place] [facility] Comment on above: Performed By: #### U MICRO, UARMICR #### [facility] [address] [address] [address] Bertha Duncan EGFR-AF ZIMBABWEAN >60 Normal >=60 [facility] Comment on above: Performed By: #### U MICRO, UARMICR #### [facility] [address] [address] [address] Bertha Duncan EGFR-NON AF ZIMBABWEAN >60 Normal >=60 [facility] Comment on above: Performed By: #### U MICRO, UARMICR #### [facility] [address] [address] [address] Bertha Duncan Glucose [Mass/Vol] 93 mg/dL Normal 74-106 [facility] Comment on above: Performed By: #### U MICRO, UARMICR #### [facility] [address] [address] [address] Betrha Duncan Potassium [Moles/Vol] 3.9 mmol/L Normal 3.5-5.1 [facility] [place] [facility] Comment on above: Performed By: #### U MICRO, UARMICR #### [facility] [address] [address] [address] Bertha Duncan Sodium [Moles/Vol] 139 mmol/L Normal 136-145 [facility] Comment on above: Performed By: #### U MICRO, UARMICR #### [facility] [address] [address] [address] Bertha Duncan Urea nitrogen [Mass/Vol] 8.0 mg/dL Normal 6.4-19.3 [facility] Comment on above: Performed By: #### U MICRO, UARMICR #### [facility] [address] [place] [address] Dr. Bertha Duncan Urea nitrogen/Creatinine [Mass ratio] 10.8 mg/mg Normal [facility] Comment on above: Performed By: #### U MICRO, UARMICR #### [facility] [address] [place] [address] Dr. Bertha Duncan PROTEIN RAND URINEon 022 UR PROT 12.1 mg/dL Critically high <=11.9 [facility] Comment on above: Performed By: #### P ROTU #### [facility] [address] [place] [address] Dr. Bertha Duncan UA RANDOMon 11-21-2021 Bilirubin Ql (U) Negative Normal NEGATIVE [facility] Comment on above: Performed By: #### U A #### [facility] [address] [place] [address] Dr. Bertha Duncan Clarity (U) CLEAR Normal CLEAR [facility] Comment on above: Performed By: #### U A #### [facility] [address] [place] [address] Dr. Bertha Duncan Color (U) YELLOW Normal YELLOW [facility] Comment on above: Performed By: #### U A #### [facility] [address] [place] [address] Dr. Bertha Duncan Glucose Ql (U) 500 mg/dl Abnormal NEGATIVE [facility] Comment on above: Performed By: #### U A #### [facility] [address] [place] [address] Dr. Bertha Duncan Hemoglobin Ql (U) Negative Normal NEGATIVE [facility] Comment on above: Performed By: #### U A #### [facility] [address] [place] [address] Dr. Bertha Duncan Ketones Ql (U) Negative Normal NEGATIVE [facility] Comment on above: Performed By: #### U A #### [facility] [address] [place] [address] Dr. Bertha Duncan LEUKOCYTES TRACE Abnormal NEGATIVE [facility] Comment on above: Performed By: #### U A #### [facility] [address] [place] [address] Dr. Bertha Duncan Nitrite Ql (U) Negative Normal NEGATIVE [facility] Comment on above: Performed By: #### U A #### [facility] [address] [place] [address] Dr. Bertha Duncan pH (U) 6.0 [pH] Normal 5-9 [facility] Comment on above: Performed By: #### U A #### [facility] [address] [place] [address] Dr. Bertha Duncan SPEC GRAVITY 1.015 Normal 1.005-<=1.0 25 [facility] [place] [facility] Comment on above: Performed By: #### U A #### [facility] [address] [place] [address] Dr. Bertha Duncan UA PROTEIN Negative Normal NEGATIVE/ TRACE [facility] Comment on above: Performed By: #### U A #### [facility] [address] [place] [address] Dr. Bertha Duncan Urobilinogen Qn (U) 0.2 {[place]'U}/dL Normal 0.2 - 1. 0 [facility] Comment on above: Performed By: #### U A #### [facility] [address] [place] [address] Dr. Bertha Duncan CULTURE URINEon 11-13-2021 CULTURE [...] R F Oxacillin >=4 R F Normal [facility] Comment on above: Performed By: #### U MICRO, UARMICR #### [facility] [address] [place] [address] Dr. Bertha Duncan CBC AUTO DIFFon 11-10-2021 BASO # 0.1 103/ul Normal 0.0-0.1 [facility] Comment on above: Performed By: #### C BC #### [facility] [address] [place] [address] Dr. Bertha Duncan Basophils/100 WBC (Bld) 0.5 % Normal 0.2-2.0 [facility] Comment on above: Performed By: #### C BC #### [facility] [address] [place] [address] Dr. Bertha Duncan EO # 0.2 103/ul Normal 0.0-0.7 [facility] [place] [facility] Comment on above: Performed By: #### C BC #### [facility] [address] [place] [address] Dr. Bertha Duncan Eosinophils/100 WBC (Bld) 1.9 % Normal 0.9-7.0 [facility] [place] [facility] Comment on above: Performed By: #### C BC #### [facility] [address] [place] [address] Dr. Bertha Duncan Erythrocyte distribution width (RBC) [Ratio] 12.2 % Normal 11.0-15.0 [facility] Comment on above: Performed By: #### C BC #### [facility] [address] [place] [address] Dr. Bertha Duncan Hematocrit (Bld) [Volume fraction] 39.0 % Normal 36.0-48.0 [facility] Comment on above: Performed By: #### C BC #### [facility] [address] [place] [address] Dr. Bertha Duncan Hemoglobin (Bld) [Mass/Vol] 12.7 g/dL Normal 12.0-16.0 [facility] Comment on above: Performed By: #### C BC #### [facility] [address] [place] [address] Dr. Bertha Duncan IG # 0.02 10e3/ul Normal 0.00-0.03 [facility] [place] [facility] Comment on above: Performed By: #### C BC #### [facility] [address] [place] [address] Dr. Bertha Duncan IG % 0.2 % Normal 0.0-0.5 [facility] Comment on above: Performed By: #### C BC #### [facility] [address] [place] [address] Dr. Bertha Duncan LYMPH # 3.1 103/ul Normal 1.2-3.8 [facility] [place] [facility] Comment on above: Performed By: #### C BC #### [facility] [address] [place] [address] Dr. Bertha Duncan Lymphocytes/100 WBC (Bld) 29.9 % Normal 20.5-60.0 [facility] Comment on above: Performed By: #### C BC #### [facility] [address] [place] [address] Dr. Bertha Duncan MANUAL DIFF REQ NO Normal [facility] Comment on above: Performed By: #### C BC #### [facility] [address] [place] [address] Dr. Bertha Duncan MCH (RBC) [Entitic mass] 28.0 pg Normal 26.7-34.0 [facility] Comment on above: Performed By: #### C BC #### [facility] [address] [place] [address] Dr. Bertha Duncan MCHC (RBC) [Mass/Vol] 32.6 g/dL Normal 29.9-35.2 [facility] Comment on above: Performed By: #### C BC #### [facility] [address] [place] [address] Dr. Bertha Duncan MCV (RBC) [Entitic vol] 85.9 fL Normal 81.0-99.0 [facility] Comment on above: Performed By: #### C BC #### [facility] [address] [place] [address] Dr. Bertha Duncan MONO # 0.7 103/ul Normal 0.3-0.8 [facility] Comment on above: Performed By: #### C BC #### [facility] [address] [place] [address] Dr. Bertha Duncan Monocytes/100 WBC (Bld) 7.0 % Normal 1.7-12.0 [facility] Comment on above: Performed By: #### C BC #### [facility] [address] [place] [address] Dr. Bertha Duncan NEUT # 6.3 103/ul Normal 1.4-6.5 [facility] Comment on above: Performed By: #### C BC #### [facility] [address] [place] [address] Dr. Bertha Duncan Neutrophils/100 WBC (Bld) 60.5 % Normal 43.0-75.0 [facility] Comment on above: Performed By: #### C BC #### [facility] [address] [place] [address] Dr. Bertha Duncan Platelet mean volume (Bld) [Entitic vol] 9.6 fL Normal 9.5-13.5 [facility] Comment on above: Performed By: #### C BC #### [facility] [address] [place] [address] Dr. Bertha Duncan PLT 393 103/ul Normal 150-450 [facility] Comment on above: Performed By: #### C BC #### [facility] [address] [place] [address] Dr. Bertha Duncan RBC 4.54 106/ul Normal 4.20-5.40 [facility] Comment on above: Performed By: #### C BC #### [facility] [address] [place] [address] Dr. Bertha Duncan WBC 10.4 103/ul Normal 4.0-11.0 [facility] Comment on above: Performed By: #### C BC #### [facility] [address] [place] [address] Dr. Bertha Duncan UA (CLEAN/CATCH) MICROSCOPIC IF INDICATEon 11-10-2021 Bilirubin Ql (U) Negative Normal NEGATIVE [facility] Comment on above: Performed By: #### U MICRO, UARMICR #### [facility] [address] [address] [address] Bertha Duncan Clarity (U) SL CLOUDY Abnormal CLEAR [facility] Comment on above: Performed By: #### U MICRO, UARMICR #### [facility] [address] [address] [address] Bertha Duncan Color (U) LT. YELLOW Normal YELLOW [facility] Comment on above: Performed By: #### U MICRO, UARMICR #### [facility] [address] [address] [address] Bertha Duncan Glucose Ql (U) 100 mg/dl Abnormal NEGATIVE [facility] Comment on above: Performed By: #### U MICRO, UARMICR #### [facility] [address] [place] [address] Dr. Bertha Duncan Hemoglobin Ql (U) Negative Normal NEGATIVE [facility] Comment on above: Performed By: #### U MICRO, UARMICR #### [facility] [address] [place] [address] Dr. Bertha Duncan Ketones Ql (U) Negative Normal NEGATIVE [facility] Comment on above: Performed By: #### U MICRO, UARMICR #### [facility] [address] [place] [address] Dr. Bertha Duncan LEUKOCYTES TRACE Abnormal NEGATIVE [facility] Comment on above: Performed By: #### U MICRO, UARMICR #### [facility] [address] [place] [address] Dr. Bertha Duncan Nitrite Ql (U) Negative Normal NEGATIVE [facility] Comment on above: Performed By: #### U MICRO, UARMICR #### [facility] [address] [place] [address] Dr. Bertha Duncan pH (U) 7.0 [pH] Normal 5-9 [facility] Comment on above: Performed By: #### U MICRO, UARMICR #### [facility] [address] [place] [address] Dr. Bertha Duncan SPEC GRAVITY 1.015 Normal 1.005-<=1.0 25 [facility] Comment on above: Performed By: #### U MICRO, UARMICR #### [facility] [address] [place] [address] Dr. Bertha Duncan UA PROTEIN Negative Normal NEGATIVE/ TRACE [facility] Comment on above: Performed By: #### U MICRO, UARMICR #### [facility] [address] [place] [address] Dr. Bertha Duncan UR MICRO IND INDICATED Normal [facility] Comment on above: Performed By: #### U MICRO, UARMICR #### [facility] [address] [place] [address] Dr. Bertha Duncan Urobilinogen Qn (U) 0.2 {[place]aine'U}/dL Normal 0.2 - 1. 0 [facility] Comment on above: Performed By: #### U MICRO, UARMICR #### [facility] [address] [place] [address] Dr. Bertha Duncan URINE MICROSCOPIC ONLYon BACTERIA TRACE Abnormal NONE SEEN [facility] Comment on above: Performed By: #### U MICRO, UARMICR #### [facility] [address] [place] [address] Dr. Bertha Duncan Bacteria identified Cx Nom (U) INDICATED Normal [facility] Comment on above: Performed By: #### U MICRO, UARMICR #### [facility] [address] [place] [address] Dr. Bertha Duncan CAST NONE SEEN Normal NONE SEEN [facility] Comment on above: Performed By: #### U MICRO, UARMICR #### [facility] [address] [place] [address] Dr. Bertha Duncan Crystals LM Nom (Urine sed) NONE SEEN Normal NONE SEEN [facility] Comment on above: Performed By: #### U MICRO, UARMICR #### [facility] [address] [place] [address] Dr. Bertha Duncan Epithelial cells LM Ql (Urine sed) RARE Normal NONE SEEN /RARE [facility] Comment on above: Performed By: #### U MICRO, UARMICR #### [facility] [address] [place] [address] Dr. Bertha Duncan MUCOUS TRACE Abnormal NONE SEEN [facility] Comment on above: Performed By: #### U MICRO, UARMICR #### [facility] [address] [place] [address] Dr. Bertha Duncan RBC 0-2 Normal 0-2 [facility] Comment on above: Performed By: #### U MICRO, UARMICR #### [facility] [address] [place] [address] Dr. Bertha Duncan WBC 2-5 Abnormal NONE SEEN [facility] Comment on above: Performed By: #### U MICRO, UARMICR #### [facility] [address] [place] [address] Dr. Bertha Duncan CULTURE URINEon 11-02-2021 CULTURE URINE Culture Observations : HEAVY GROWTH OF MIXED GENITAL BEAU. NO POTENTIAL PATHOGENS SEEN. Normal [facility] Comment on above: Performed By: #### U MICRO, UARMICR #### [facility] [address] [place] [address] Dr. Bertha Duncan UA (CLEAN/CATCH) STRAPPING MACHINE TENDER/MICRO I F IND.on 11-02-2021 Bilirubin Ql (U) Negative Normal NEGATIVE [facility] Comment on above: Performed By: #### U MICRO, UACSIND #### [facility] [address] [place] [address] Dr. Bertha Duncan Clarity (U) CLEAR Normal CLEAR [facility] Comment on above: Performed By: #### U MICRO, UACSIND #### [facility] [address] [place] [address] Dr. Bertha Duncan Color (U) LT. YELLOW Normal YELLOW [facility] Comment on above: Performed By: #### U MICRO, UACSIND #### [facility] [address] [place] [address] Dr. Bertha Duncan Glucose Ql (U) 250 mg/dl Abnormal NEGATIVE [facility] Comment on above: Performed By: #### U MICRO, UACSIND #### [facility] [address] [address] [address] Bertha Duncan Hemoglobin Ql (U) SMALL Abnormal NEGATIVE [facility] Comment on above: Performed By: #### U MICRO, UACSIND #### [facility] [address] [address] [address] Bertha Duncan Ketones Ql (U) Negative Normal NEGATIVE [facility] Comment on above: Performed By: #### U MICRO, UACSIND #### [facility] [address] [address] [address] Bertha Duncan LEUKOCYTES LARGE Abnormal NEGATIVE [facility] Comment on above: Performed By: #### U MICRO, UACSIND #### [facility] [address] [place] [address] Dr. Bertha Duncan Nitrite Ql (U) Negative Normal NEGATIVE [facility] Comment on above: Performed By: #### U MICRO, UACSIND #### [facility] [address] [address] [address] Bertha Duncan pH (U) 6.0 [pH] Normal 5-9 [facility] Comment on above: Performed By: #### U MICRO, UACSIND #### [facility] [address] [address] [address] Bertha Duncan SPEC GRAVITY 1.025 Normal 1.005-<=1.0 25 [facility] Comment on above: Performed By: #### U MICRO, UACSIND #### [facility] [address] [address] [address] Bertha Duncan UA PROTEIN Negative Normal NEGATIVE/ TRACE [facility] Comment on above: Performed By: #### U MICRO, UACSIND #### [facility] [address] [place] [address] Dr. Bertha Duncan UR MICRO IND INDICATED Normal [facility] Comment on above: Performed By: #### U MICRO, UACSIND #### [facility] [address] [place] [address] Dr. Bertha Duncan Urobilinogen Qn (U) 0.2 {[place]'U}/dL Normal 0.2 - 1. 0 [facility] Comment on above: Performed By: #### U MICRO, UACSIND #### [facility] [address] [address] [address] Bertha Duncan URINE MICROSCOPIC ONLYon BACTERIA SMALL Abnormal NONE SEEN [facility] Comment on above: Performed By: #### U MICRO, UACSIND #### [facility] [address] [place] [address] Dr. Bertha Duncan Bacteria identified Cx Nom (U) INDICATED Normal [facility] Comment on above: Performed By: #### U MICRO, UACSIND #### [facility] [address] [place] [address] Dr. Bertha Duncan CAST NONE SEEN Normal NONE SEEN [facility] Comment on above: Performed By: #### U MICRO, UACSIND #### [facility] [address] [place] [address] Dr. Bertha Duncan Crystals LM Nom (Urine sed) NONE SEEN Normal NONE SEEN [facility] Comment on above: Performed By: #### U MICRO, UACSIND #### [facility] [address] [place] [address] Dr. Bertha Duncan Epithelial cells LM Ql (Urine sed) MODERATE Abnormal NONE SEEN /RARE [facility] Comment on above: Performed By: #### U MICRO, UACSIND #### [facility] [address] [place] [address] Dr. Bertha Duncan MUCOUS TRACE Abnormal NONE SEEN [facility] Comment on above: Performed By: #### U MICRO, UACSIND #### [facility] [address] [place] [address] Dr. Bertha Duncan RBC 5-10 Abnormal 0-2 [facility] Comment on above: Performed By: #### U MICRO, UACSIND #### [facility] [address] [place] [address] Dr. Bertha Duncan WBC 10-20 Abnormal NONE SEEN [facility] Comment on above: Performed By: #### U MICRO, UACSIND #### [facility] [address] [place] [address] Dr. Bertha Duncan US KIDNEYS BLADDERon 022 [...] ARTEM WILLS Date: 2021-11-02 18:01 Normal [facility] CBC AUTO DIFFon 10-27-2021 BASO # 0.0 103/ul Normal 0.0-0.1 [facility] Comment on above: Performed By: #### U MICRO, UARMICR #### [facility] [address] [address] [address] Bertha Duncan Basophils/100 WBC (Bld) 0.4 % Normal 0.2-2.0 [facility] Comment on above: Performed By: #### U MICRO, UARMICR #### [facility] [address] [address] [address] Bertha Duncan EO # 0.1 103/ul Normal 0.0-0.7 [facility] Comment on above: Performed By: #### U MICRO, UARMICR #### [facility] [address] [address] [address] Bertha Duncan Eosinophils/100 WBC (Bld) 1.5 % Normal 0.9-7.0 [facility] Comment on above: Performed By: #### U MICRO, UARMICR #### [facility] [address] [place] [address] Dr. Bertha Duncan Erythrocyte distribution width (RBC) [Ratio] 12.8 % Normal 11.0-15.0 [facility] Comment on above: Performed By: #### U MICRO, UARMICR #### [facility] [address] [place] [address] Dr. Bertha Duncan Hematocrit (Bld) [Volume fraction] 36.0 % Normal 36.0-48.0 [facility] Comment on above: Performed By: #### U MICRO, UARMICR #### [facility] [address] [place] [address] Dr. Bertha Duncan Hemoglobin (Bld) [Mass/Vol] 11.7 g/dL Critically low 12.0-16.0 [facility] Comment on above: Performed By: #### U MICRO, UARMICR #### [facility] [address] [place] [address] Dr. Bertha Duncan IG # 0.02 10e3/ul Normal 0.00-0.03 [facility] Comment on above: Performed By: #### U MICRO, UARMICR #### [facility] [address] [place] [address] Dr. Bertha Duncan IG % 0.3 % Normal 0.0-0.5 [facility] Comment on above: Performed By: #### U MICRO, UARMICR #### [facility] [address] [place] [address] Dr. Bertha Duncan LYMPH # 2.2 103/ul Normal 1.2-3.8 [facility] Comment on above: Performed By: #### U MICRO, UARMICR #### [facility] [address] [place] [address] Dr. Bertha Duncan Lymphocytes/100 WBC (Bld) 30.2 % Normal 20.5-60.0 [facility] Comment on above: Performed By: #### U MICRO, UARMICR #### [facility] [address] [place] [address] Dr. Bertha Duncan MANUAL DIFF REQ NO Normal [facility] Comment on above: Performed By: #### U MICRO, UARMICR #### [facility] [address] [place] [address] Dr. Bertha Duncan MCH (RBC) [Entitic mass] 28.5 pg Normal 26.7-34.0 [facility] Comment on above: Performed By: #### U MICRO, UARMICR #### [facility] [address] [place] [address] Dr. Bertha Duncan MCHC (RBC) [Mass/Vol] 32.5 g/dL Normal 29.9-35.2 [facility] Comment on above: Performed By: #### U MICRO, UARMICR #### [facility] [address] [place] [address] Dr. Bertha Duncan MCV (RBC) [Entitic vol] 87.8 fL Normal 81.0-99.0 [facility] Comment on above: Performed By: #### U MICRO, UARMICR #### [facility] [address] [place] [address] Dr. Bertha Duncan MONO # 0.5 103/ul Normal 0.3-0.8 [facility] Comment on above: Performed By: #### U MICRO, UARMICR #### [facility] [address] [place] [address] Dr. Bertha Duncan Monocytes/100 WBC (Bld) 6.9 % Normal 1.7-12.0 [facility] Comment on above: Performed By: #### U MICRO, UARMICR #### [facility] [address] [place] [address] Dr. Bertha Duncan NEUT # 4.5 103/ul Normal 1.4-6.5 [facility] Comment on above: Performed By: #### U MICRO, UARMICR #### [facility] [address] [place] [address] Dr. Bertha Duncan Neutrophils/100 WBC (Bld) 60.7 % Normal 43.0-75.0 [facility] Comment on above: Performed By: #### U MICRO, UARMICR #### [facility] [address] [address] [address] Bertha Duncan Platelet mean volume (Bld) [Entitic vol] 9.5 fL Normal 9.5-13.5 [facility] Comment on above: Performed By: #### U MICRO, UARMICR #### [facility] [address] [address] [address] Bertha Duncan PLT 360 103/ul Normal 150-450 [facility] Comment on above: Performed By: #### U MICRO, UARMICR #### [facility] [address] [address] [address] Bertha Duncan RBC 4.10 106/ul Critically low 4.20-5.40 [facility] Comment on above: Performed By: #### U MICRO, UARMICR #### [facility] [address] [address] [address] Bertha Duncan WBC 7.4 103/ul Normal 4.0-11.0 [facility] Comment on above: Performed By: #### U MICRO, UARMICR #### [facility] [address] [place] [address] Dr. Bertha Duncan UA RANDOMon 10-27-2021 Bilirubin Ql (U) Negative Normal NEGATIVE [facility] Comment on above: Performed By: #### U A #### [facility] [address] [place] [address] Dr. Bertha Duncan Clarity (U) CLEAR Normal CLEAR [facility] Comment on above: Performed By: #### U A #### [facility] [address] [address] [address] Bertha Duncan Color (U) RED Abnormal YELLOW [facility] Comment on above: Performed By: #### U A #### [facility] [address] [address] [address] Bertha Duncan Glucose Ql (U) 250 mg/dl Abnormal NEGATIVE [facility] Comment on above: Performed By: #### U A #### [facility] [address] [place] [address] Dr. Bertha Duncan Hemoglobin Ql (U) LARGE Abnormal NEGATIVE [facility] Comment on above: Performed By: #### U A #### [facility] [address] [place] [address] Dr. Bertha Duncan Ketones Ql (U) Negative Normal NEGATIVE [facility] Comment on above: Performed By: #### U A #### [facility] [address] [place] [address] Dr. Bertha Duncan LEUKOCYTES Negative Normal NEGATIVE [facility] Comment on above: Performed By: #### U A #### [facility] [address] [place] [address] Dr. Bertha Duncan Nitrite Ql (U) Negative Normal NEGATIVE [facility] Comment on above: Performed By: #### U A #### [facility] [address] [place] [address] Dr. Bertha Duncan pH (U) 5.5 [pH] Normal 5-9 [facility] Comment on above: Performed By: #### U A #### [facility] [address] [place] [address] Dr. Bertha Duncan SPEC GRAVITY 1.015 Normal 1.005-<=1.0 25 [facility] Comment on above: Performed By: #### U A #### [facility] [address] [place] [address] Dr. Bertha Duncan UA PROTEIN TRACE Normal NEGATIVE/ TRACE [facility] Comment on above: Performed By: #### U A #### [facility] [address] [place] [address] Dr. Bertha Duncan Urobilinogen Qn (U) 0.2 {[place]'U}/dL Normal 0.2 - 1. 0 [facility] Comment on above: Performed By: #### U A #### [facility] [address] [place] [address] Dr. Bertha Duncan ABO/RHon 10-07-2021 ABO/Rh Positive [facility] Basic Metabolic Panel w/ Ref angelina to MGon 10-07-2021 Anion gap [Moles/Vol] 16 mmol/L 9 - 17 mmol/L [facility] Calcium [Mass/Vol] 9.8 mg/dL 8.6 - 10. 4 mg/dL [facility] Chloride [Moles/Vol] 98 mmol/L 98 - 10 7 mmol/L [facility] CO2 [Moles/Vol] 25 mmol/L 20 - 31 mmol/L [facility] Creatinine [Mass/Vol] 0.41 mg/dL Low 0.50 - 0.90 mg/dL [facility] GFR Non- Pediatric GFR requires additional information. Refer to [facility] website for calculator. >60 mL/min [facility] Glucose [Mass/Vol] 69 mg/dL Low 70 - 99 mg/dL [facility] Interpretation and review of laboratory results Abnormal [facility] Potassium [Moles/Vol] 4.1 mmol/L 3.7 - 5.3 mmol/L [facility] Sodium [Moles/Vol] 139 mmol/L 135 - 144 mmol/L [facility] Urea nitrogen (BldV) [Mass/Vol] 10 mg/dL 6 - 20 mg/dL [facility] Urea nitrogen/Creatinine (Bld) [Mass ratio] 24 High [facility] CBC with Auto Differentialon 10-07-2021 Absolute Eos # 0.23 [facility] Absolute Immature Granulocyte 0.19 [facility] Absolute Lymph # 3.34 [facility] Absolute [place] # 1.34 [facility] Basophils (Bld) [#/Vol] 0.06 10*3/uL [facility] Basophils/100 WBC (Bld) 0 % 0 - 2 % [facility] Eosinophils/100 WBC (Bld) 1 % 1 - 4 % [facility] Hematocrit (Bld) [Volume fraction] 35.9 % Low 36.3 - 47.1 % [facility] Hemoglobin (Bld) [Mass/Vol] 11.6 g/dL Low 11.9 - 15.1 g/dL [facility] Immature granulocytes/100 WBC (Bld) 1 % High 0 [facility] Interpretation and review of laboratory results Abnormal [facility] Lymphocytes/100 WBC (Bld) 18 % Low 25 - 45 % [facility] MCH (RBC) [Entitic mass] 28.8 pg 25.2 - 33.5 pg [facility] MCHC (RBC) [Mass/Vol] 32.3 g/dL 28.4 - 34.8 g/dL [facility] MCV (RBC) [Entitic vol] 89.1 fL 82.6 - 102.9 fL [facility] Monocytes/100 WBC (Bld) 7 % 2 - 8 % [facility] NRBC Automated 0.0 0.0 per 100 WBC [facility] Platelet distribution width (Bld) [Ratio] 12.4 % 11.8 - 14.4 % [facility] Platelet mean volume (Bld) [Entitic vol] 8.3 fL 8.1 - 13.5 fL [facility] Platelets (Bld) [#/Vol] 664 10*3/uL High [facility] RBC (Bld) [#/Vol] 4.03 10*6/uL 3.95 - 5.1 1 m/uL [facility] Segmented neutrophils/100 WBC (Bld) 73 % High 34 - 64 % [facility] Segs Absolute 13.24 High [facility] WBC (Bld) [#/Vol] 18.4 10*3/uL High [facility] HCG, Quantitative, on 10-07-2021 hCG Quant [id number] High <5 mIU/mL [facility] Comment on above: Non-preg premeno <=5 Postmeno <=8 Male <=3 If HCG results do not concur with clinical observations, additional testing to confirm results is recommended. Elevated results not associated with may be found in patients with other diseases such as tumors of the germ cells (testis, ovaries, etc.), bladder, pancreas, stomach, lungs, and liver. Interpretation and review of laboratory results Abnormal [facility] Hepatic Function Panelon Albumin [Mass/Vol] 4.1 g/dL 3.5 - 5.2 g/dL [facility] Albumin/Globulin [Mass ratio] 1.1 {ratio} [facility] ALP (Bld) [Catalytic activity/Vol] 86 U/L 35 - 104 U/L [facility] ALT [Catalytic activity/Vol] 15 U/L 5 - 33 U/L [facility] AST [Catalytic activity/Vol] 27 U/L <32 [facility] Bilirubin [Mass/Vol] 0.18 mg/dL Low 0.3 - 1 .2 mg/dL [facility] Bilirubin, Indirect Can not be calculated 0.00 - 1.00 mg/dL [facility] Bilirubin.indirect [Mass/Vol] mg/dL <0.31 mg/dL [facility] Free PSA/Total PSA [Mass fraction] 8.0 g/dL 6.4 - 8.3 g/dL [facility] Interpretation and review of laboratory results Abnormal [facility] Laboratory - Chemistry and C hemistry - challengeon 10-07-2021 GFR/1.73 sq M.predicted MDRD (S/P/Bld) [Vol rate/Area] [facility] Comment on above: Average GFR for <20 years old not available. Chronic Kidney Disease: <60 mL/min/1.73sq m Kidney failure: <15 mL/min/1.73sq m eGFR calculated using average adult body mass. Additional eGFR calculator available at: http://www.gifted2you.[employer]/multiple_crcl_2012.htm Stage 1: Some kidney damage normal GFR Stage 2: Mild kidney damage GFR 60-89 Stage 3: Moderate kidney damage GFR 30-59 Stage 4: Severe kidney damage GFR 15-29 Stage 5: Severe kidney damage GFR <15 ESRD - chronic treatment by dialysis or transplant Lactate, Sepsison 10-07-2021 Interpretation and review of laboratory results Abnormal [facility] Lactic Acid, Sepsis 3.2 mmol/L High 0.5 - 1. 9 mmol/L [facility] Interpretation and review of laboratory results Abnormal [facility] Lactic Acid, Sepsis 3.0 mmol/L High 0.5 - 1. 9 mmol/L [facility] Lipaseon 10-07-2021 Lipase [Catalytic activity/Vol] 32 U/L 13 - 60 U/L [facility] Microscopic Urinalysison - [facility] Bacteria, UA TRACE Abnormal None [facility] Epithelial Cells UA 2 TO 5 [facility] Interpretation and review of laboratory results Abnormal [facility] RBC, UA 50 TO 100 [facility] WBC, UA 5 TO 10 [facility] Urinalysis with Reflex to Cu ltureon 10-07-2021 Bilirubin Urine Negative NEGATIVE [facility] Color, UA Yellow Yellow [facility] Glucose, Ur TRACE Abnormal NEGATIVE [facility] Interpretation and review of laboratory results Abnormal [facility] Ketones Ql (U) Negative NEGATIVE [facility] Leukocyte esterase Test strip Ql (U) TRACE Abnormal NEGATIVE [facility] Nitrite, Urine Negative NEGATIVE [facility] pH, UA 6.5 [facility] Protein, UA 1+ Abnormal NEGATIVE [facility] Specific [place], UA <1.005 Low [facility] Turbidity UA Clear Clear [facility] Urine Hgb 3+ Abnormal NEGATIVE [facility] Urobilinogen, Urine Normal Normal [facility] XR CHEST PORTABLEon 10-08-19 22 Other than mild atelectasis in the right perihilar area no acute lung disease. [facility] CONSOLIDATED EXAMINATION: ONE XRAY VIEW OF THE CHEST 10/07/2021 6:13 pm COMPARISON: June 13, 2020 HISTORY: ORDERING SYSTEM PROVIDED HISTORY: Slight decreased breath sounds left lower lung TECHNOLOGIST PROVIDED HISTORY: Slight decreased breath sounds left lower lung FINDINGS: Mild atelectasis in the right perihilar area. No other active lung parenchymal or pleural disease. Heart, mediastinum and pleural surfaces appear unremarkable. [facility] RIS CONSOLIDATED Madelaine Levine MD - 10/07/2021 [...] right perihilar area no acute lung disease. [employer] [employer]: Radiology Study observation (narrative) [facility] Phone: XR CHEST PORTABLEOrdered By: Madelaine Levine on 10-07-2021 [employer] Phone: [place] URINARY BLADDER LIMITEDon 07-20-2021 Right ureteral jet could not be visualized. Postvoid residual 212 mL. [facility] CONSOLIDATED EXAMINATION: ULTRASOUND OF THE URINARY BLADDER 07/20/2021 COMPARISON: None. HISTORY: ORDERING SYSTEM PROVIDED HISTORY: Urinary tract infection without hematuria, site unspecified FINDINGS: Urinary bladder unremarkable in appearance with prevoid volume 495 mL. Right ureteral jet not demonstrated. Postvoid residual 212 mL. [facility] R[facility] CONSOLIDATED Nirmal Haskins DO - 07/20/2021 EXAMINATION: ULTRASOUND OF THE URINARY BLADDER 07/20/2021 COMPARISON: None. HISTORY: ORDERING SYSTEM PROVIDED HISTORY: Urinary tract infection without hematuria, site unspecified FINDINGS: Urinary bladder unremarkable in appearance with prevoid volume 495 mL. Right ureteral jet not demonstrated. Postvoid residual 212 mL. IMPRESSION: Right ureteral jet could not be visualized. Postvoid residual 212 mL. [employer]: Radiology Study observation (narrative) [employer]: US URINARY BLADDER LIMITEDOr dered By: Nirmal Hasknis on 07-20-2021 [employer]: Urinalysis with Microscopico n 07-12-2021 - [facility] Bacteria, UA 2+ Abnormal None [facility] Bilirubin Urine Negative [facility] Color, UA Yellow Yellow [facility] Epithelial Cells UA 2 TO 5 [facility] Glucose, Ur Negative NEGATIVE [facility] Interpretation and review of laboratory results Abnormal [facility] Ketones Ql (U) Negative NEGATIVE [facility] Leukocyte esterase Test strip Ql (U) LARGE Abnormal NEGATIVE [facility] Nitrite, Urine Negative NEGATIVE [facility] pH, UA 6.5 [facility] Protein, UA Negative NEGATIVE [facility] RBC, UA 0 TO 2 [facility] Specific [place], UA 1.010 [facility] Turbidity UA Clear Clear [facility] Urine Hgb Negative NEGATIVE [facility] Urobilinogen, Urine Normal Normal [facility] WBC, UA 20 TO 50 [facility] APTTOrdered By: Louise martinez on 01-19-2021 aPTT Coag (Bld) [Time] 29.5 s [facility] Work Phone: Comment on above: IV Heparin Therapy Range: 62.0-94.0 CBC Auto DifferentialOrdered By: Louise Ordonez on 01-19-2021 Absolute Eos # 0.11 [facility] Work Phone: Absolute Immature Granulocyte 0.05 [facility] Work Phone: Absolute Lymph # 2.08 [facility] Work Phone: Absolute Chippewa # 0.60 [facility] Work Phone: Basophils (Bld) [#/Vol] 0.03 10*3/uL [facility] Work Phone: Basophils/100 WBC (Bld) 0 % 0 - 2 % [facility] Work Phone: Differential Type NOT REPORTED [facility] Work Phone: Eosinophils/100 WBC (Bld) 1 % 1 - 4 % [facility] Work Phone: Hematocrit (Bld) [Volume fraction] 43.7 % 36.3 - 47.1 % [facility] Work Phone: Hemoglobin.gastrointes tinal spec 1 Ql (Stl) 14.9 g/dL 11.9 - 15.1 g/dL [employer] Phone: Immature granulocytes/100 WBC (Bld) 1 % High 0 [employer] Phone: Interpretation and review of laboratory results Abnormal [employer] Phone: Lymphocytes/100 WBC (Bld) 21 % Low 25 - 45 % [employer] Phone: MCH (RBC) [Entitic mass] 30.3 pg 25.0 - 35.0 pg [employer] Phone: MCHC (RBC) [Mass/Vol] 34.1 g/dL 28.4 - 34.8 g/dL [employer] Phone: MCV (RBC) [Entitic vol] 88.8 fL 78.0 - 102.0 fL [employer] Phone: Monocytes/100 WBC (Bld) 6 % 2 - 8 % [employer] Phone: NRBC Automated 0.0 0.0 per 100 WBC [employer] Phone: Platelet distribution width (Bld) [Ratio] 12.3 % 11.8 - 14.4 % [employer] Phone: Platelet Estimate NOT REPORTED [employer] Phone: Platelet mean volume (Bld) [Entitic vol] 9.8 fL 8.1 - 13.5 fL [employer] Phone: Platelets (Bld) [#/Vol] 297 10*3/uL [employer] Phone: RBC (Bld) [#/Vol] 4.92 10*6/uL 3.95 - 5.1 1 m/uL [employer] Phone: RBC (Bld) [#/Vol] NOT REPORTED [employer] Phone: Segmented neutrophils/100 WBC (Bld) 71 % High 34 - 64 % [employer] Phone: Segs Absolute 6.86 [employer] Work Phone: WBC (Bld) [#/Vol] 9.7 10*3/uL [employer] Work Phone: WBC (Bld) [#/Vol] NOT REPORTED [employer] Phone: [employer] Work Phone: Comprehensive Metabolic Pane lOrdered By: Louise Ordonez on 01-19-2021 Albumin [Mass/Vol] 5.1 g/dL 3.5 - 5.2 g/dL [employer] Phone: Albumin/Globulin [Mass ratio] 1.5 {ratio} [employer] Phone: ALP (Bld) [Catalytic activity/Vol] 90 U/L 35 - 104 U/L [employer] Phone: ALT [Catalytic activity/Vol] 22 U/L 5 - 33 U/L [employer] Phone: Anion gap [Moles/Vol] 14 mmol/L 9 - 17 mmol/L [employer] Phone: AST [Catalytic activity/Vol] 29 U/L <32 [employer] Phone: Bilirubin [Mass/Vol] 0.54 mg/dL 0.3 - 1 .2 mg/dL [employer] Phone: Calcium [Mass/Vol] 10.4 mg/dL 8.6 - 10. 4 mg/dL [employer] Phone: Chloride [Moles/Vol] 103 mmol/L 98 - 10 7 mmol/L [employer] Phone: CO2 [Moles/Vol] 26 mmol/L 20 - 31 mmol/L [employer] Phone: Creatinine [Mass/Vol] 0.52 mg/dL 0.50 - 0.90 mg/dL [employer] Phone: Free PSA/Total PSA [Mass fraction] 8.6 g/dL High 6.4 - 8.3 g/dL [employer] Phone: GFR NOT REPORTED >60 mL/min [employer] Phone: GFR Non- Pediatric GFR requires additional information. Refer to NKDEP website for calculator. >60 mL/min [employer] Phone: Glucose [Mass/Vol] 82 mg/dL 70 - 99 mg/dL [employer] Phone: Interpretation and review of laboratory results Abnormal [employer] Phone: Potassium [Moles/Vol] 4.3 mmol/L 3.7 - 5.3 mmol/L [employer] Phone: Sodium [Moles/Vol] 143 mmol/L 135 - 144 mmol/L [employer] Phone: Urea nitrogen (BldV) [Mass/Vol] 15 mg/dL 6 - 20 mg/dL [employer] Phone: Urea nitrogen/Creatinine (Bld) [Mass ratio] 29 High [employer] Phone: [employer] Phone: EKG 12 LeadOrdered By: Morena Ordonez on 01-19-2021 Atrial Rate 63 BPM [employer] Phone: P Verdon 33 degrees [employer] Phone: P-R Interval 136 ms [employer] Phone: Q-T Interval 386 ms [employer] Phone: QRS Duration 98 ms [employer] Phone: QTc Calculation (Bazett) 395 ms [employer] Phone: R Verdon 63 degrees [employer] Phone: T Verdon 47 degrees [employer] Phone: Ventricular Rate 63 BPM [facility] Phone: Normal sinus rhythm with sinus arrhythmia Normal ECG When compared with ECG of 13-JUN-2020 13:57, No significant change was found Confirmed by Marlyn Boyce MD ([id number]) on 01/19/2021 10:08:57 PM [employer] Phone: Leeroy, Mhpn Incoming E kg Results From [employer] - 01/19/2021 10:09 PM EDT Normal sinus rhythm with sinus arrhythmia Normal ECG When compared with ECG of 13-JUN-2020 13:57, No significant change was found Confirmed by Marlyn Boyce MD ([id number]) on 01/19/2021 10:08:57 PM [employer] Phone: [employer] Phone: Laboratory - Chemistry and C hemistry - challengeOrdered By: Louise Ordonez on 01-19-2021 GFR/1.73 sq M.predicted MDRD (S/P/Bld) [Vol rate/Area] [employer] Phone: Comment on above: Average GFR for <20 years old not available. Chronic Kidney Disease: <60 mL/min/1.73sq m Kidney failure: <15 mL/min/1.73sq m eGFR calculated using average adult body mass. Additional eGFR calculator available at: http://www.gifted2you.[employer]/multiple_crcl_2012.htm Stage 1: Some kidney damage normal GFR Stage 2: Mild kidney damage GFR 60-89 Stage 3: Moderate kidney damage GFR 30-59 Stage 4: Severe kidney damage GFR 15-29 Stage 5: Severe kidney damage GFR <15 ESRD - chronic treatment by dialysis or transplant No Panel InformationOrdered By: Louise Ordonez on 01-19-2021 [employer] Phone: Protime-INROrdered By: Morena Ordonez on 01-19-2021 INR Coag (Bld) [Relative time] 1.1 {INR} [employer] Work Phone: Comment on above: Non-therapeutic Range: INR = 0.9-1.2 Therapeutic Range: Moderate Anticoagulant Intensity: INR = 2.0-3.0 High Anticoagulant Intensity: INR = 2.5-3.5 PT Coag (PPP) [Time] 13.9 s [employer] Phone: Living Will/POAon 10-12-2020 Living Will/POA [id number] 0CD:127 Normal [facility] Pathology Noteon 10-12-2020 Pathology Note [id number]:127 Normal [facility] Ambulatory Clinical Summaryo n 10-11-2020 Ambulatory Clinical Summary {[id number] Normal [facility] General Surgery Office/Clini c Noteon 10-11-2020 General Surgery Office/Clinic Note Chief Complaint Post operative visit HPI Staff 4 Day s/p Cholecystectomy completed at [facility]. Present today with mother. Denies symptoms of [...] Tobacco Use:. Never Smokeless Tobacco Use:., 10/11/2020 [facility] Comment on above: Result Comment: Elec tronically Signed By: KIARA ARIAS, Francisco Ellis\Date and Time Signed: 10/11/20 13:37 EDT Patient [...] your health care provider or diet and operation specialist (dietitian). This may include: ? Eating fewer [...] Losing weight paul (more content not included)... [facility] RAD - MRI Reporton 1 RAD - MRI Report [id number] 0CD:127 Normal [facility] CBC Auto DifferentialOrdered By: Louise Lemos on 10-01-2020 Absolute Eos # 0.10 [facility] Work Phone: Absolute Immature Granulocyte <0.03 [employer] Work Phone: Absolute Lymph # 2.27 [facility] [facility] Work Phone: Absolute Chippewa # 0.54 [facility] Work Phone: Basophils (Bld) [#/Vol] 0.04 10*3/uL [employer] Work Phone: Basophils/100 WBC (Bld) 1 % 0 - 2 % [employer] Phone: Differential Type NOT REPORTED [employer] Work Phone: Eosinophils/100 WBC (Bld) 1 % 1 - 4 % [employer] Phone: Hematocrit (Bld) [Volume fraction] 43.3 % 36.3 - 47.1 % [employer] Phone: Hemoglobin.gastrointes tinal spec 1 Ql (Stl) 14.5 g/dL 11.9 - 15.1 g/dL [employer] Phone: Immature granulocytes/100 WBC (Bld) 0 % 0 [employer] Phone: Lymphocytes/100 WBC (Bld) 30 % 25 - 45 % [employer] Phone: MCH (RBC) [Entitic mass] 29.4 pg 25.0 - 35.0 pg [employer] Work Phone: MCHC (RBC) [Mass/Vol] 33.5 g/dL 28.4 - 34.8 g/dL [employer] Phone: MCV (RBC) [Entitic vol] 87.8 fL 78.0 - 102.0 fL [employer] Phone: Monocytes/100 WBC (Bld) 7 % 2 - 8 % [employer] Phone: NRBC Automated 0.0 0.0 per 100 WBC [employer] Phone: Platelet distribution width (Bld) [Ratio] 13.1 % 11.8 - 14.4 % [employer] Phone: Platelet Estimate NOT REPORTED [employer] Phone: Platelet mean volume (Bld) [Entitic vol] 10.9 fL 8.1 - 13.5 fL [employer] Phone: Platelets (Bld) [#/Vol] 313 10*3/uL [employer] Phone: RBC (Bld) [#/Vol] 4.93 10*6/uL 3.95 - 5.1 1 m/uL [employer] Phone: RBC (Bld) [#/Vol] NOT REPORTED [employer] Phone: Segmented neutrophils/100 WBC (Bld) 61 % 34 - 64 % [employer] Phone: Segs Absolute 4.57 [employer] Work Phone: WBC (Bld) [#/Vol] 7.5 10*3/uL [employer] Phone: WBC (Bld) [#/Vol] NOT REPORTED [employer] Phone: [employer] Phone: Comprehensive Metabolic Pane lOrdered By: Louise Lemos on 10-01-2020 Albumin [Mass/Vol] 4.7 g/dL 3.5 - 5.2 g/dL [employer] Phone: Albumin/Globulin [Mass ratio] 1.6 {ratio} [employer] Phone: ALP (Bld) [Catalytic activity/Vol] 200 U/L High 35 - 104 U/L [employer] Phone: ALT [Catalytic activity/Vol] 514 U/L High 5 - 33 U/L [employer] Phone: Anion gap [Moles/Vol] 9 mmol/L 9 - 17 mmol/L [employer] Phone: AST [Catalytic activity/Vol] 378 U/L High <32 [employer] Phone: Bilirubin [Mass/Vol] 1.72 mg/dL High 0.3 - 1 .2 mg/dL [employer] Phone: Calcium [Mass/Vol] 9.8 mg/dL 8.6 - 10. 4 mg/dL [employer] Phone: Chloride [Moles/Vol] 105 mmol/L 98 - 10 7 mmol/L [employer] Phone: CO2 [Moles/Vol] 27 mmol/L 20 - 31 mmol/L [employer] Phone: Creatinine [Mass/Vol] 0.45 mg/dL Low 0.50 - 0.90 mg/dL [employer] Phone: Free PSA/Total PSA [Mass fraction] 7.7 g/dL 6.4 - 8.3 g/dL [employer] Phone: GFR NOT REPORTED >60 mL/min [facility] Phone: GFR Non- Pediatric GFR requires additional information. Refer to NKDEP website for calculator. >60 mL/min [employer] Phone: Glucose [Mass/Vol] 103 mg/dL High 70 - 99 mg/dL [employer] Phone: Interpretation and review of laboratory results Abnormal [employer] Phone: Potassium [Moles/Vol] 4.4 mmol/L 3.7 - 5.3 mmol/L [employer] Phone: Sodium [Moles/Vol] 141 mmol/L 135 - 144 mmol/L [employer] Phone: Urea nitrogen (BldV) [Mass/Vol] 10 mg/dL 6 - 20 mg/dL [employer] Work Phone: Urea nitrogen/Creatinine (Bld) [Mass ratio] 22 High [employer] Phone: FTI RATIOOrdered By: Louise Lemos on 10-01-2020 Free Thyroxine Index 2.1 ug/dL 1.4 - 3 .1 ug/dL [employer] Phone: Insulin, totalOrdered By: Do bob Brauliobruna on 10-01-2020 Insulin 25.6 mU/L [employer] Phone: Insulin Comment 1100 [employer] [facility] Work Phone: Insulin Reference Range: [employer] Phone: Comment on above: Fastin.6-24.9 30 min: 20-112 60 min: 29-88 90 min: 26-84 120 min: 22-79 [employer] Phone: Laboratory - Chemistry and C hemistry - challengeOrdered By: Louise Lemos on 10-01-2020 GFR/1.73 sq M.predicted MDRD (S/P/Bld) [Vol rate/Area] [employer] Phone: Comment on above: Average GFR for <20 years old not available. Chronic Kidney Disease: <60 mL/min/1.73sq m Kidney failure: <15 mL/min/1.73sq m eGFR calculated using average adult body mass. Additional eGFR calculator available at: http://www.Motorpaneer/multiple_crcl_2012.htm Stage 1: Some kidney damage normal GFR Stage 2: Mild kidney damage GFR 60-89 Stage 3: Moderate kidney damage GFR 30-59 Stage 4: Severe kidney damage GFR 15-29 Stage 5: Severe kidney damage GFR <15 ESRD - chronic treatment by dialysis or transplant Lipid PanelOrdered By: Morena Lemos on 10-01-2020 Cholesterol [Mass/Vol] 150 mg/dL <200 [employer] Phone: Comment on above: Cholesterol Guidelines: <200 Desirable 200-240 Borderline >240 Undesirable Cholesterol in HDL [Mass/Vol] 57 mg/dL >40 [employer] Phone: Comment on above: HDL Guidelines: <40 Undesirable 40-59 Borderline >59 Desirable Cholesterol in LDL [Mass/Vol] 78 mg/dL 0 - 130 mg/dL [employer] Phone: Comment on above: LDL Guidelines: <100 Desirable 100-129 Near to/above Desirable 130-159 Borderline >159 Undesirable Direct (measured) LDL and calculated LDL are not interchangeable tests. Cholesterol in VLDL [Mass/Vol] NOT REPORTED 1 - 30 mg/dL [employer] Phone: Cholesterol.total/Chol esterol in HDL [Mass ratio] 2.6 {ratio} <5 [employer] Phone: Triglyceride [Mass/Vol] 73 mg/dL <150 [employer] Phone: Comment on above: Triglyceride Guidelines: <150 Desirable 150-199 Borderline 200-499 High >499 Very high Based on AHA Guidelines for fasting triglyceride, January 2012. [employer] Phone: No Panel InformationOrdered By: Louise Lemos on 10-01-2020 [employer] Phone: [employer] Phone: T3, UptakeOrdered By: Kj Lemos on 10-01-2020 Thyroxine Uptake 27.66 % 22.5 - 37.0 % [employer] Phone: [employer] Phone: Q5Enicivf By: Louise Lemos on 10-01-2020 T4 [Mass/Vol] 7.5 ug/dL 4.5 - 10.9 ug/dL [employer] Phone: TSH without ReflexOrdered By : Louise Lemos on 10-01-2020 TSH Qn 2.23 m[IU]/L [employer] Phone: No Panel InformationOrdered By: Thierry Braun [...] intact. 2. No acute fracture or dislocation. [employer] Phone: EXAMINATION: TWO XRA Y VIEWS OF [...] acute fracture or dislocation. No marginal erosions. [employer] Phone: Leeroy, Mhpn Incoming Radiant Results From [employer] - 08/26/2020 12:30 PM EDT EXAMINATION: TWO [...] intact. 2. No acute fracture or dislocation. [employer] Phone: Basic Metabolic Panelon 05-30 Anion gap [Moles/Vol] 10 mmol/L 9 - 17 mmol/L [employer] Phone: Bun/Cre Ratio 16 [employer] Work Phone: Calcium [Mass/Vol] 9.9 mg/dL 8.4 - 10. 2 mg/dL [employer] Phone: Chloride [Moles/Vol] 101 mmol/L 98 - 10 7 mmol/L [employer] Phone: CO2 [Moles/Vol] 27 mmol/L 20 - 31 mmol/L [employer] Phone: Creatinine [Mass/Vol] 0.61 mg/dL 0.5 - 0.9 mg/dL [employer] Phone: GFR NOT REPORTED >60 mL/min [employer] Phone: GFR Non- Pediatric GFR requires additional information. Refer to NKDEP website for calculator. >60 mL/min [employer] Phone: Glucose [Mass/Vol] 77 mg/dL 60 - 100 mg/dL [employer] Phone: Potassium [Moles/Vol] 4.3 mmol/L 3.6 - 4.9 mmol/L [employer] Phone: Sodium [Moles/Vol] 138 mmol/L 135 - 144 mmol/L [employer] Phone: Urea nitrogen [Mass/Vol] 10 mg/dL 5 - 18 mg/dL [employer] Phone: CBC Auto Differentialon 05-30 Basophils (Bld) [#/Vol] 0.04 10*3/uL [employer] Phone: Basophils/100 WBC (Bld) 0 % 0 - 2 % [employer] Phone: Differential Type NOT REPORTED [employer] Phone: Eosinophils (Bld) [#/Vol] 0.14 10*3/uL [employer] Phone: Eosinophils/100 WBC (Bld) 1 % 1 - 4 % [employer] Phone: Erythrocyte distribution width (RBC) [Ratio] 13.1 % 11.8 - 14.4 % [employer] Phone: Hematocrit (Bld) [Volume fraction] 41.6 % 36.3 - 47.1 % [employer] Phone: Hemoglobin (Bld) [Mass/Vol] 13.5 g/dL 11.9 - 15.1 g/dL [employer] Phone: Immature granulocytes (Bld) [#/Vol] 0 % 0 [employer] Phone: Immature granulocytes (Bld) [#/Vol] 10*3/uL [employer] Phone: Interpretation and review of laboratory results Abnormal [employer] Phone: Lymphocytes (Bld) [#/Vol] 2.13 10*3/uL [employer] Phone: Lymphocytes/100 WBC (Bld) 21 % Low 25 - 45 % [employer] Phone: MCH (RBC) [Entitic mass] 28.2 pg 25 - 35 pg [employer] Phone: MCHC (RBC) [Mass/Vol] 32.5 g/dL 28.4 - 34.8 g/dL [employer] Phone: MCV (RBC) [Entitic vol] 87.0 fL 78 - 102 fL [employer] Phone: Monocytes (Bld) [#/Vol] 0.95 10*3/uL [employer] Phone: Monocytes/100 WBC (Bld) 9 % High 2 - 8 % [employer] Phone: Platelet mean volume (Bld) [Entitic vol] 10.9 fL 8.1 - 13.5 fL [employer] Phone: Platelets (Bld) [#/Vol] 262 10*3/uL [employer] Phone: Platelets (Bld) [#/Vol] NOT REPORTED [employer] Phone: RBC (Bld) [#/Vol] 4.78 10*6/uL 3.95 - 5.1 1 m/uL [employer] Phone: RBC morphology finding Nom (Bld) NOT REPORTED [employer] Phone: Segmented neutrophils/100 WBC (Bld) 69 % High 34 - 64 % [employer] Phone: Segs Absolute 6.97 [employer] Work Phone: WBC (Bld) [#/Vol] 0.0 10*3/uL 0.0 per 10 0 WBC [employer] Phone: WBC (Bld) [#/Vol] 10.3 10*3/uL [employer] Phone: WBC Morphology NOT REPORTED [employer] [facility] Work Phone: D-dimer, quantitativeon 05-30 D-Dimer, Quant 0.33 [employer] Work Phone: Comment on above: When combined [...] predicted among non-blacks MDRD (S/P/Bld) [Vol rate/Area] [employer] Phone: Comment on above: Stage 1: Some [...] body mass. Additional eGFR calculator available at: http://www.Motorpaneer/multiple_crcl_2012.htm Troponinon 06-13-2020 Troponin I.cardiac [Mass/Vol] NOT REPORTED [employer] Phone: Troponin T.cardiac [Mass/Vol] NOT REPORTED <0.03 ng/mL [employer] Phone: Troponin, High Sensitivity <6 0 - 14 ng/L [employer] Phone: Comment on above: High Sensitivity Troponin values cannot be compared with other Troponin methodologies. Patients with high levels of Biotin oral intake (i.e >5mg/day) may have falsely decreased Troponin levels. Samples collected within 8 hours of biotin intake may require additional information for diagnosis. XR CHEST PORTABLEon 06-13-19 21 Leeroy, pn Incoming Radiant Results From [employer] - 06/13/2020 2:05 PM EST EXAMINATION: ONE [...] grossly intact. IMPRESSION: No acute cardiopulmonary pathology. [employer] Phone: EXAMINATION: ONE XRA Y VIEW OF [...] structures and soft tissues are grossly intact. [employer] Phone: No acute cardiopulmonary pathology. [employer] Phone: XR FOOT LEFT (MIN 3 VIEWS)on 06-13-2020 Erythrocyte distribution width (RBC) [Ratio] Postop changes as above. Hardware intact. No acute disease. [employer] Phone: EXAMINATION: THREE XRAY VIEWS OF THE LEFT FOOT 06/13/2020 3:34 pm COMPARISON: None. HISTORY: ORDERING SYSTEM PROVIDED HISTORY: pain TECHNOLOGIST PROVIDED HISTORY: pain FINDINGS: 2 screws transfix the medial malleolus and 2 screws transfix the talus. Cortical margins intact. Alignment anatomic. Soft tissues unremarkable. [employer] Phone: Leeroy, Mhpn Incoming Radiant Results From [email or web address] - 06/13/2020 3:46 PM EST EXAMINATION: THREE XRAY VIEWS OF THE LEFT FOOT 06/13/2020 3:34 pm COMPARISON: None. HISTORY: ORDERING SYSTEM PROVIDED HISTORY: pain TECHNOLOGIST PROVIDED HISTORY: pain FINDINGS: 2 screws transfix the medial malleolus and 2 screws transfix the talus. Cortical margins intact. Alignment anatomic. Soft tissues unremarkable. IMPRESSION: Postop changes as above. Hardware intact. No acute disease. [employer] Phone: HCG,URINEon 02-02-2020 Beta HCG ( test) Ql (U) Negative Normal Negative [facility] Comment on above: Result Comment: POCT Performed By: #### H CGU #### [facility] [address] [place] [address] BASIC METABOLIC PANELon 10-0 Anion gap [Moles/Vol] 16 mmol/L Normal 10 - 30 [facility] Comment on above: Performed By: #### B MP ####[facility] [place] [address] Calcium [Mass/Vol] 9.3 mg/dL Normal 8.5 - 10.7 [facility] Comment on above: Performed By: #### B MP ####[facility] [place] [address] Chloride [Moles/Vol] 101 mmol/L Normal 98 - 107 [facility] Comment on above: Performed By: #### B MP ####[facility] [place] [address] Creatinine [Mass/Vol] 0.55 mg/dL Normal 0.50 - 0.90 [facility] Comment on above: Performed By: #### B MP ####[facility] [place] [address] Glucose [Mass/Vol] 116 mg/dL High 74 - 99 [facility] Comment on above: Performed By: #### B MP ####[facility] [place] [address] HCO3 (Bld) [Moles/Vol] 23 mmol/L Normal 18 - 27 [facility] Comment on above: Performed By: #### B MP ####[facility] [place] [address] Potassium [Moles/Vol] 3.9 mmol/L Normal 3.5 - 5.3 [facility] Comment on above: Performed By: #### B MP ####[facility] [place] [address] Sodium [Moles/Vol] 136 mmol/L Normal 136 - 145 [facility] Comment on above: Performed By: #### B MP ####[facility] [place] [address] Urea nitrogen [Mass/Vol] 11 mg/dL Normal 6 - 23 [facility] Comment on above: Performed By: #### B MP ####[facility] [place] [address] BLOOD CULTURE, BACTERIALon 1 BLOOD CULTURE, BACTERIAL PATIENT: BLANKA FARIAS LOCATION: [address]#: [id number] : [birth year] AGE: SEX: F ORDERED BY: [place] NORT[place] SOURCE: Blood COLLECTED: 01/30/20 05:50 ANTIBIOTICS AT ERICA.: RECEIVED : 01/30/20 17:30 SITE: R E S U [facility] T S BLOOD CULTURE, BACTERIAL FINAL 02/04/20 17:42 No Growth at 1 days No Growth at 2 days No Growth at 3 days No Growth at 4 days NO GROWTH - FINAL REPORT Normal [facility] Comment on above: Performed By: #### B LDC #### [facility] [address] [place] [address] CBC AND DIFFERENTIALon 01-29 % AUTOMATED IMMATURE GRAN 0.7 % Normal 0.0 - 1.0 [facility] Comment on above: Result Comment: Sabine ture Granulocyte Count (IG) includes promyelocytes, myelocytes and metamyelocytes but does not include bands. Percent differential counts (%) should be interpreted in the context of the absolute cell counts (cells/L). Performed By: #### C BCDF ####[facility] [place] [address] Basophils (Bld) [#/Vol] 0.03 10*3/uL Normal 0.00 - 0.10 [facility] Comment on above: Performed By: #### C BCDF ####[facility] [place] [address] Basophils/100 WBC (Bld) 0.1 % Normal 0.0 - 1.0 [facility] Comment on above: Performed By: #### C BCDF ####[facility] [place] [address] Erythrocyte distribution width (RBC) [Ratio] 12.4 % Normal 11.5 - 14.5 [facility] Comment on above: Performed By: #### C BCDF ####[facility] [place] [address] Hematocrit (Bld) [Volume fraction] 40.0 % Normal 36.0 - 46.0 [facility] Comment on above: Performed By: #### C BCDF ####[facility] [place] [address] Hemoglobin (Bld) [Mass/Vol] 13.3 g/dL Normal 12.0 - 16.0 [facility] Comment on above: Performed By: #### C BCDF ####[facility] [place] [address] Lymphocytes (Bld) [#/Vol] 1.64 10*3/uL Low 1.80 - 4.80 [facility] Comment on above: Performed By: #### C BCDF ####[facility] [place] [address] Lymphocytes/100 WBC (Bld) 7.8 % Normal 28.0 - 48.0 [facility] Comment on above: Performed By: #### C BCDF ####[facility] [place] [address] MCHC (RBC) [Mass/Vol] 33.3 g/dL Normal 31.0 - 37.0 [facility] Comment on above: Performed By: #### C BCDF ####[facility] [place] [address] MCV (RBC) [Entitic vol] 89 fL Normal 78 - 102 [facility] Comment on above: Performed By: #### C BCDF ####[facility] [place] [address] Monocytes (Bld) [#/Vol] 1.06 10*3/uL High 0.10 - 1.00 [facility] Comment on above: Performed By: #### C BCDF ####[facility] [place] [address] Monocytes/100 WBC (Bld) 5.1 % Normal 3.0 - 9.0 [facility] Comment on above: Performed By: #### C BCDF ####[facility] [place] [address] Neutrophils (Bld) [#/Vol] 18.05 10*3/uL High 1.20 - 7.70 [facility] Comment on above: Performed By: #### C BCDF ####[facility] [place] [address] Neutrophils/100 WBC (Bld) 86.3 % Normal 33.0 - 69.0 [facility] Comment on above: Performed By: #### C BCDF ####[facility] [place] [address] Platelets (Bld) [#/Vol] 325 10*3/uL Normal 150 - 400 [facility] Comment on above: Performed By: #### C BCDF ####[facility] [place] [address] RBC (Bld) [#/Vol] 4.50 x10E12/L Normal 4.10 - 5.20 [facility] Comment on above: Performed By: #### C BCDF ####[facility] [place] [address] WBC (Bld) [#/Vol] 20.9 10*3/uL High 4.5 - 13.5 [facility] Comment on above: Performed By: #### C BCDF ####[facility] [place] [address] Consult-Medicineon 0 Consult-Medicine Service: Service: Medicine Consult: [...] eager to return home. Patient is from [place] so no chart for comparison. 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 Objective Data: Objective Information: T PRBPSpO2 Value36.65972168/7294% Date/Time01/29 5: 5: 5: 5: 5:29 Range(36.1C [...] Assessment and Plan, Note Completion Thierry Braun (DPWyatt) (Signed 31-Jan-2020 08:12) Authored: Note Completion Co-Signer: Service, Subjective Data, Objective Data, Assessment and Plan, Note Completion Last Updated: 31-Jan-2020 08:12 by Thierry Braun (GERARDO) [facility] Discharge Planning [id number] 1 0 Discharge Planning Note2 Discharge Planning: Planned Dispositionhome AMPAC < 20no [place] of Choice Explainedyes Anticipated Discharge [id number] Discharge Planning 01/30/2020 0925: Transitional Rn Hemodialysis Note: Plan of care discussed in Interdisciplinary [...] RN TCC Added 1137 : PT recommended HHC and patient's mom agreeable. Referral sent to [facility] via AllGLAMSQUADriSumavisos. Faye Crowe RN TCC Assessment: Discharge Planning Assessment [id number] Discharge Planning Assessment Completed byFaye Crowe RN TCC Primary Contact Name and NumberJesusan-mom(1) Stated Reason for Admissionankle surgery(2) Arrived From[place] (2) PCPDr. [facility] Adherence/Afford/Obtai nyes InsuranceMMO Super Med Resource/Environmental Concernsnone(2) Anticipated Transition [place](2) Services Anticipated at Transitionnone(2) Electronic Signatures: Faye Crowe (CELIA) (Signed 30-Jan-2020 11:39) Authored: Discharge Planning, Assessment Last Updated: 30-Jan-2020 11:39 by Faye Crowe (CELIA) References: 1. Data Referenced From Patient Profile - Preop v2 29-Jan-2020 13:35 2. Data Referenced From Patient Profile - Pediatric v2 29-Jan-2020 19:41 Normal [facility] Discharge [id number] 020 Discharge Profile2 Discharge Orders: Anticipated Discharge Date: Anticipated Discharge [id number] Hospital Providers: Provider RoleProvider Name Thierry Jaffe [...] Care Services Needed: yes Home Care Agency: [facility] [phone] Skilled Disciplines Ordered: RN/LANGUAGE SPECIALIST, PT Face to Face Encounter Completed: yes [...] FINAL REVIEW of Orders, Gold Form - Bulldogger Summary Thierry Braun) (Signed 30-Jan-2020 11:45) Authored: Home Care Orders, Provider FINAL REVIEW of Orders Faye Crowe) (Signed 30-Jan-2020 11:33) Authored: Home Care Orders, Provider FINAL REVIEW of Orders Last Updated: 30-Jan-2020 11:45 by Thierry Braun) Normal [facility] Admission Risk Screen - Pedi [...] Able to be Assessed for Learningyes Educational Jymbu11cd12th grade Factors Influence Readiness to Learnnone, ready to learn Factors Impact Ability to Learncognitive limitations Devices/Methods Used to Communicatenone Learning Preferencesverbal instruction Cultural Considerationsnone Developmental Considerationsnone Mormonism Considerationsnone Other Learnersmother Learning Assessment (Other Learner): Other learner availableyes Other Learner is Able to be Assessed for Learningyes Learnermother Factors Influencing Readiness to Learnnone, ready to learn Factors that Impact Ability to Learnnone Devices/Methods Used to Communicatenone Learning Preferencesverbal instruction Cultural Considerationsnone Developmental Considerationsnone Mormonism Considerationsnone Nutrition Risk Screen: Nutrition Screen forpediatric patient Nutrition Risk Screen (2 or more indicators, Order Nutrition Consult)no indicators present Nutrition Consult needed this visitno Can Patient Participate in Room Serviceyes Pain Screen: Pain Scalenumerical 0-10 (1) Pain Scale Educationteaching provided (1) Teaching Provided PedsPain Management PI sheet 680 Current Pain Level0 = None Acceptable Pain [...] Spiritual Screen: Are there any cultural, spiritual, jewish practices/values/needs that are important for us to knowno [place] Suicide Peds: Screen patients 10 yo and [...] to do anything to end your lifeno [place] Suicide Risklow Optional Screens: Significant Indicatiors: Significant Indicators: Complete Electronic Signatures: Carmel Muñoz (CELIA) (Signed 29-Jan-2020 19:41) Authored: Admission Screens, Pressure Injury, Optional Screens Last Updated: 29-Jan-2020 19:41 by Carmel Muñoz (CELIA) References: 1. Data Referenced From Patient Profile - Preop v2 29-Jan-2020 13:35 Normal [facility] CORONAVIRUS 2018, SCREEN ASY MPTOMATICon 01-29-2020 CORONAVIRUS 2019,PCR NOT DETECTED Normal Not Detected [facility] Comment on above: Result Comment: This assay is designed to detect the RdRp gene of SARS-CoV-2 via nucleic acid amplification. A Not Detected result does not preclude COVID-19 infection since the adequacy of sample collection and/or low viral burden may result in presence of viral nucleic acids below the clinical sensitivity of this test method. Fact sheet for providers: www.fda.gov/media/829448/download Fact sheet for patients: www.fda.gov/media/551800/download This test has received FDA Emergency Use Authorization (EUA) and has been verified by [facility]. This test is only authorized for the duration of time that circumstances exist to justify the authorization of the emergency use of in vitro diagnostic tests for the detection of SARS-CoV-2 virus and/or diagnosis of COVID-19 infection under section 564(b)(1) of the Act, 21 U.S.C. 360bbb-3(b)(1), unless the authorization is terminated or revoked sooner. [facility] is certified under CLIA-88 as qualified to perform high complexity testing. Testing is performed in the [facility] laboratory located at [address] [place] [address]. Performed By: #### C OVSC #### [place] [address] Lab Specimen Source Nasal, Nasopharyngeal Normal [facility] Comment on above: Performed By: #### C OVSC #### [address] Surgical Pathologyon 01-29-2020 [facility] Surgical Pathology Name BLANKA FARIAS Pathologist: THIERRY FONSECA MD Date of Procedure: 01/29/2020 Date Received: 02/01/2020 Date Reported 02/05/2020 Submitting Physician: THIERRY BRAUN DPM Location: [facility] Surg Other External # FINAL DIAGNOSIS A. LEFT TALUS, EXCISION: --DEVITALIZED BONE WITH FEATURES OF REMODELING. Electronically Signed Out By THIERRY FONSECA MD/MRG1 By the signature on this report, the [...] No grossly necrotic bone is identified. A inside technical sales representative section is submitted in one cassette following decalcification. CJN Gross dissection performed at: [facility] Department of Pathology [address] [place] [address] cjn/02/01/2020 [facility] Department of Pathology [address] [place] [address] Normal [facility] Comment on above: Performed By: #### G SP ####[facility] Surgical [address] [place] [address] Operative Reports - [facility] 01-29-2020 [place] [address] Patient Name: BLANKA FARIAS : 2000 Date of Service: 01/29/2020 Patient Location: [place] [address] [id number] Patient Type: O Surgeon: Thierry Braun DPM Report Type: Operative Reports LOCATION: [facility]. SURGEON: Thierry Braun DPM POULTRY TRIMMER(S): 1. Nanci Cleary, GERARDO PGY-5 2. Az Norton DPM PGY-4 PREOPERATIVE [...] options. She was sent to me from [place], [place] for second opinion, and the patient [...] distal medial malleolus, and we did a cyfg-uhae-szou repair of the ligament, keeping it tight. [...] make a contact in her area in [place], [place] to do some followup. Thierry Braun DPM EST TT: 01/31/2020 09:56 AM EST DICTATION NUMBER: [id number] HANY JOB NUMBER: [id number] CC: LOUISE LEMOS Electronic Signatures: Thierry Braun (GERARDO) (Signed on 05-Feb-2020 06:35) Authored Unsigned, Draft (SYS GENERATED) (Entered on 31-Jan-2020 09:56) Entered Last Updated: 05-Feb-2020 06:35 by Thierry Braun (GERARDO) [facility] Patient Profile - Pediatric v2on 01-29-2020 Patient Profile - Pediatric v2 Profile: Initial Info: How to be AddressedMartina(1) Parent NameJessica Spoken Language PreferredEnglish (1) Source of Informationpatient; family Legal Custodianmother Are you currently using the Personal Electronic Health Record or MYUHCAREno Are you interested in learning more about MYUHCARE for the management of your healthnot at [...] Concernsnone Primary Caregivermother Lives Withmother [facility]ated [facility] Anticipated at Transitionnone School/Gogcsjj40ek grade/high school senior Concerns Regarding School Performance/Peer Relationshipsno Information Review: Allergies, Home Meds and Significant Events have been Reviewed and Verified with Patient/Familyyes ALLERGY, INTOLERANCE, ADVERSE EVENT: Allergies: No Known Allergies: Active Electronic Signatures: Carmel Muñoz (CELIA) (Signed 29-Jan-2020 19:49) Authored: Initial Info, General Health, Procedural Care Plan, Rsp Based Care, Substance, Health Mgmt, Relationship/Environ, Additional Information Last Updated: 29-Jan-2020 19:49 by Carmel Muñoz) References: 1. Data Referenced From Patient Profile - Preop v2 29-Jan-2020 13:35 Normal [facility] Patient Profile - Preop v2on 01-29-2020 Patient Profile - Preop v2 Profile: Initial Info: How to be AddressedMartina Spoken Language PreferredEnglish Are you currently using the Personal Electronic Health Record or [facility] Are you interested in learning more about MYCARE for the management of your healthdeclined Stated Reason for AdmissionL ankle repair Primary Contact Name and NumberJessica-mom Patient Belongingsin pacu Medications Brought to Hospitalno [...] Learning Preferencesverbal instruction Cultural Considerationsnone Developmental Considerationsnone Mormonism Considerationsnone Other learner availableno [place] RiskPatient location auto qualifies him/her for HIGH RISK. Are there any cultural, spiritual, jewish practices/values/needs that are important for us to [...] Updated: 29-Jan-2020 14:14 by Sandrine Jack) Normal [facility] Preop Checkliston 01-29-2020 Preop Checklist Preop Checklist: Preop Checklist: Arrival [id number] Arrival Time11:29 Procedure TypeL foot osteotomy NPO [id number] 00:00 ID Band Onyes Consent Signedyes H&P Completeyes Anesthesia Assessment Completedpending EKG Performednot ordered Chest X-Ray Performednot ordered HCG Urine TestComplete Chlorhexadine Bath Givennot applicable Nasal Antiseptic Appliednot applicable Hair Washednot applicable Soap and water bath with hair shampoo the night before surgerynot applicable Hat placed on prior to transportnot applicable SCD's Appliedyes Denturesnot applicable Prostheticsnot applicable Hearing Aidsnot applicable Valuables Securedpacu Glasses / Contactsnot applicable Respiratory Assessment: Respirationsunlabored Neurological Assessment: Level of Consciousnessalert, oriented Mobilitymoves all extremities Able to Express Selfyes Age Appropriateyes Emotional Statuscalm Preop Education: Surgical Site Infection Preventionyes Pain Scales and Managementyes Language / Communication: Language / CommunicationEnglish Electronic Signatures: Sandrine Jack (ENRIQUETA) (Signed 29-Jan-2020 13:27) Authored: Preop Checklist Last Updated: 29-Jan-2020 13:27 by Sandrine Jack (ENRIQUETA) Normal [facility] MRI ANKLE LEFT WO CONTRASTon 02-09-2019 1. 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 2. Mild degenerative changes of the tibiotalar joint. 3. No acute fracture or dislocation. No acute ligamentous injury. [facility], [place] EXAMINATION: MRI OF THE LEFT ANKLE WITHOUT [...] collection identified within the visualized soft tissues. [facility] [place] [place] Leeroy, pn Incoming Radiant Results From [employer] - 02/09/2019 9:18 AM EDT EXAMINATION: MRI [...] ligamentous injury. [facility] [place] Vital Signs Date Time Vital Sign Value Performing Clinician Roseliai rodolfo 10-07-2021 15:08-0400 Body height 172.7 cm Chuy Jacobson MD Work Phone: [employer] 10-07-2021 15:08-0400 Body mass index (BMI) [Percentile] Per age and sex 92.12 % Chuy Jacobson MD Work Phone: [employer] 10-07-2021 15:08-0400 Body mass index (BMI) [Ratio] 28.89 kg/m2 Chuy Jacobson MD Work Phone: [employer] 10-07-2021 15:08-0400 Body temperature 97.81 [degF] Chuy Jacobson MD Work Phone: [facility] [employer] 10-07-2021 15:08-0400 Body weight 86.18 kg Chuy Jacobson MD Work Phone: [facility] [employer] 10-07-2021 15:08-0400 Diastolic blood pressure 79 mm[Hg] Chuy Jacobson MD Work Phone: [facility] [employer] 10-07-2021 15:08-0400 Heart rate 99 /min Chuy Jacobson MD Work Phone: [facility] [employer] 10-07-2021 15:08-0400 Respiratory rate 16 /min Chuy Jacobson MD Work Phone: [facility] [employer] 10-07-2021 15:08-0400 SaO2% (BldA) [Mass fraction] 100 % Chuy Jacobson MD Work Phone: [facility] [employer] 10-07-2021 15:08-0400 Systolic blood pressure 125 mm[Hg] Chuy Jacobson MD Work Phone: [facility] [employer] 06-13-2020 16:30-0500 BP Diastolic 71 mm[Hg] [employer] Work Phone: 06-13-2020 16:30-0500 BP Systolic 148 mm[Hg] Faye [facility] Work Phone: 06-13-2020 16:30-0500 Pulse (Heart Rate) 61 /min Faye [facility] Work Phone: 06-13-2020 16:30-0500 Pulse Oximetry 97 % [employer] [employer] Work Phone: 06-13-2020 16:30-0500 Respiratory Rate 20 /min Faye [facility] Work Phone: 06-13-2020 13:53-0500 Body Temperature 98.91 [degF] Faye [facility] Work Phone: 06-13-2020 13:53-0500 Body weight 99.79 kg Faye [employer] [facility] Work Phone: 01-26-2019 18:28-0400 Body Temperature 97.3 [degF] Louise bruna [employer] [place] 01-26-2019 18:28-0400 BP Diastolic 81 mm[Hg] [facility] [place] 01-26-2019 18:28-0400 BP Systolic 176 mm[Hg] [place], [place] 01-26-2019 18:28-0400 Pulse (Heart Rate) 98 /min [facility] [place] 01-26-2019 18:28-0400 Pulse Oximetry 98 % [place], [place] 01-26-2019 18:28-0400 Respiratory Rate 15 /min [facility] [place] Encounters Encounter Date Encounter Type Care Provider Facility Start: 10-14-2023 End: 10-16-2023 ambulatory FIONA GAGNON [facility] Start: 10-14-2023 End: 10-16-2023 Subsequent hospital visit by physician Isaias Cat Scan Room [facility] CT Scan Comment on above: Arthrodesis status; Left ankle pain, unspecified chronicity; Osteoarthritis of left ankle or foot Start: 09-13-2023 End: 09-15-2023 Subsequent hospital visit by physician Isaias Mejia Dr Room 2 [facility] Radiology Comment on above: Left ankle pain, uns pecified chronicity Start: 09-13-2023 End: 09-15-2023 [facility] Start: 09-05-2023 End: 09-05-2023 Subsequent hospital visit by physician Louise Lemos MD Work Phone: [facility] Start: 09-05-2023 End: 09-07-2023 [facility] Start: 08-01-2023 Transcribe Orders Alejandra Galeano MA [facility] Physician Group, Neuroscience Comment on above: Herniated nucleus pu lposus, lumbar (Primary Dx) Start: 07-26-2023 End: 07-26-2023 Patient encounter procedure DO Hunter Richards Work Phone: [facility] Work Phone: Start: 07-26-2023 End: 07-26-2023 ambulatory Hunter Richards [facility] Work Phone: Start: 07-26-2023 Patient encounter procedure DO Hunter Richards Work Phone: [facility] Start: 06-27-2023 End: 06-29-2023 Subsequent hospital visit by physician Louise Lemos MD Work Phone: [facility] Radiology Start: 06-27-2023 End: 06-29-2023 ambulatory [facility] Start: 03-14-2023 End: 03-15-2023 ambulatory Kayleigh Payan PA-C Facility:[facility] Start: 02-20-2023 ambulatory Louise Lemos MD Facility:[facility] Start: 01-09-2023 End: 01-09-2023 ambulatory [facility] Start: 01-09-2023 End: 01-09-2023 Encounter for other preprocedural examination [facility] Start: 01-03-2023 End: 01-04-2023 ambulatory Louise Lemos MD Facility:[facility] Start: 11-29-2022 End: 11-30-2022 ambulatory Louise Lemos MD Facility:[facility] Start: 09-06-2022 ambulatory Larry Huff MD Facilit y:[facility] Start: 09-04-2022 End: 09-05-2022 ambulatory Larry Huff MD Facility:[facility] Start: 08-29-2022 End: 08-29-2022 Subsequent hospital visit by physician Louise Lemos MD Work Phone: [facility] Laboratory Start: 06-20-2022 End: 06-22-2022 Subsequent hospital visit by physician Isaias Mejia Dr Room 4 [facility] Radiology Comment on above: Pain Start: 06-14-2022 End: 06-15-2022 ambulatory Larry Huff MD Facility:[facility] Start: 05-17-2022 End: 05-18-2022 ambulatory Larry Huff MD Facility:[facility] Start: 03-09-2022 End: 03-09-2022 ambulatory LOUISE LEMOS Facility:[facility] Start: 03-09-2022 End: 03-09-2022 Patient encounter [...] by physician Isaias Mejia Dr Room 2 [facility] Radiology Comment on above: Right wrist pain Start: 02-19-2022 End: 02-19-2022 Subsequent hospital visit by physician Louise [facility] MD [facility] Start: 02-07-2022 End: 02-07-2022 ambulatory RK RENDON Facility:[facility] Start: 02-07-2022 End: 02-07-2022 Patient encounter procedure Rk Rendon DPM Work Phone: Orthopaedics Comment on above: OCD (osteochondritis dissecans) of ankle (Primary Dx); Chronic pain of right ankle Start: 01-18-2022 End: 01-19-[address] LOUISE LEMOS . Facility:[facility] Start: 01-12-2022 End: 01-13-[address] LOUISE LEMOS . Facility:[facility] Start: 01-02-2022 End: 01-02-2022 Subsequent hospital visit by physician Louise Lemos MD Work Phone: [facility] Start: 11-21-2021 End: 11-22-[address] LOUISE LEMOS . Facility:[facility] Start: 11-10-2021 End: 11-11-[address] LOUISE LEMOS . Facility:[facility] Start: 11-02-2021 End: 11-03-[address] LOUISE LEMOS . Facility:[facility] Start: 10-27-2021 End: 10-28-[address] LOUISE LEMOS . Facility:[facility] Start: 10-07-2021 End: 10-07-2021 Emergency department patient visit Chuy Jacobson MD Work Phone: [facility] ED Comment on above: Elevated lactic acid level (Primary Dx); Leukocytosis, unspecified type; Abscess; History of miscarriage Start: 07-20-2021 End: 07-22-2021 Subsequent hospital visit by physician Isaias Ultrasound Room [facility] Ultrasound Comment on above: Urinary tract infect ion without hematuria, site unspecified; Retention of urine, unspecified Start: 07-15-2021 End: 07-15-2021 Subsequent hospital visit by physician Louise Lemos MD Work Phone: [facility] Laboratory Start: 07-12-2021 End: 07-12-2021 Subsequent hospital visit by physician Louise Lemos MD Work Phone: [facility] Laboratory Start: 06-20-[address] [facility] Physician Group, Neuroscience Comment on above: Low back pain, unspe cified back pain laterality, unspecified chronicity, unspecified whether sciatica present (Primary Dx) Start: 01-19-2021 End: 01-19-2021 Subsequent hospital visit by physician Louise Lemos MD Work Phone: [facility] Respiratory Therapy Start: 10-03-2020 End: 10-03-2020 Subsequent hospital visit by physician Louise Lemos MD Work Phone: [facility] Laboratory Start: 10-01-2020 End: 10-01-2020 Subsequent hospital visit by physician Louise Lemos MD Work Phone: [facility] Laboratory Start: 08-26-2020 End: 08-28-2020 Subsequent hospital visit by physician Isaias Mejia Dr Room 2 [facility] Radiology Comment on above: Leach syndrome, le ft; Osteochondritis dissecans of ankle, left Start: 06-13-2020 Emergency department patient visit LOUISE [facility] Start: 06-13-2020 End: 06-13-2020 Emergency department patient visit Faye Go Work Phone: [facility] ED Comment on above: sybil Riojas, initial encounter (Primary Dx) Start: 12-15-2019 End: 12-17-2019 Subsequent hospital visit by physician [facility] Cat Scan Room [facility] CT Scan Comment on above: Arrived Start: 02-09-2019 End: 02-11-2019 Subsequent hospital visit by physician [facility] Mri Scanner [facility] MRI Comment on above: Sprain of tibiofibul ar ligament of left ankle, sequela Start: 01-26-2019 End: 01-26-2019 Emergency department patient visit [facility] ED Comment on above: Acute left ankle evangelina n (Primary Dx) Procedures Date Procedure Procedure Detail Performing Clinician Start: 10-14-2023 Ct lower extremity w /o contrast material Fiona HOWARD Work Phone: Start: 09-13-2023 Radiologic examinati on ankle 2 views Louise Lemos MD Work Phone: Start: 09-05-2023 25 hydroxy includes fractions if performed Louise Lemos MD Work Phone: Start: 08-29-2022 Urnls dip stick/tabl et reagent auto microscopy Louise Lemos MD Work Phone: Start: 06-20-2022 Radex wrist complete minimum 3 views Louise Lemos MD Work Phone: Start: 03-07-2022 Radex wrist complete minimum 3 views Louise Lemos MD Work Phone: Start: 02-19-2022 Comprehensive metabo lic panel Louise Lemos MD Work Phone: Start: 02-19-2022 Urnls dip stick/tabl et reagent auto microscopy Louise Lemos MD Work Phone: Start: 01-02-2022 Urnls dip stick/tabl et reagent auto microscopy Louise Lemos MD Work Phone: Start: 10-07-2021 Radiologic exam [...] dip stick/tabl et reagent auto microscopy Louise Lemos MD Work Phone: Start: 01-19-2021 Ecg routine ecg w/le ast 12 lds w/i&r Louise Ordonez DO Work Phone: Start: 01-19-2021 Comprehensive metabo lic panel Louise Ordonez DO Work Phone: Start: 10-01-2020 Comprehensive metabo lic panel Louise Lemos MD Work Phone: Start: 10-01-2020 FTI RATIO Louise Lemos MD Work Phone: Start: 10-01-2020 Lipid panel Louise Lemos MD Work Phone: Start: 08-26-2020 End: 08-26-2020 [...] lower ext rem w/o contrast matrl Louise Lemos Work Phone: Plan of Treatment Date Care Activity Detail Author Start: 10-25-2029 DTaP/Tdap/Td vaccine (5 - Td or Tdap) DTaP/Tdap/Td vaccine (5 - Td or Tdap) [facility] [employer] Start: 10-25-2029 DTaP/Tdap/Td vaccine (5 - Td) DTaP/Tdap/Td vaccine (5 - Td) [facility] [employer] Work Phone: Start: 10-25-2029 DTaP/Tdap/Td vaccine (8 - Td or Tdap) DTaP/Tdap/Td vaccine (8 - Td or Tdap) [facility] Start: 10-25-2029 DTaP/Tdap/Td vaccine (8 - Td) DTaP/Tdap/Td vaccine (8 - Td) [facility] [employer] [place], [place] Start: 11-28-2023 Influenza vaccination Flu vacc ine (Season Ended) [facility] Start: 07-30-2023 Screening for malign ant neoplasm of cervix Pap smear [facility] Start: 07-26-2023 Plain X-ray of right hip XR hi p RT min 2V(w/wo pelvis)* [facility] Start: 11-27-2022 Influ[address] vaccination [facility] Start: 12-28-2021 Influenza vaccination B [facility] Start: 11-27-2021 Influenza vaccination Flu vaccine (# 1) [facility] Start: 2021 Urine microalbumin profile DTAP,TDAP,TD (1 - Tdap) [facility] Start: 04-29-2021 [facility] Start: 12-28-2020 Influenza vaccination [facility] Start: 2020 CHLAMYDIA SCREENING (18-24) CHLAMYDIA SCREENING (18-24) [facility] Start: 2020 GC (GONORRHEA) SCREE TEODORO (18-24) GC (GONORRHEA) SCREENING (18-24) [facility] Start: 2020 Hepatitis C screening Hepatitis C sc reen [facility] Start: 2020 HEPATITIS C SCREENING HEPATITIS C SC REENING [facility] Start: 2020 HIV SCREENING HIV SCREENING [facility] Start: 12-29-2019 Influenza vaccination Flu vaccine (# 1) [place] Start: 12-28-2018 Influenza vaccination Flu vaccine (# 1) [place] Start: 2018 Chlamydia screen Chlamydia screen [place], [place] Start: 2018 COVID-19 Vaccine (1) COVID-19 Vaccin e (1) [facility] Work Phone: Start: 2018 Meningococcal (ACWY) Vaccine (1 - 2-dose series) Meningococcal (ACWY) Vaccine (1 - 2-dose series) [place] Start: 2018 Screening for Chlamy christiano trachomatis [facility] Start: 2017 HIV screen HIV screen [place], [place] Start: 2017 [facility] Start: 2017 HPV vaccine (1 - Fem mejia 3-dose series) HPV vaccine (1 - Female 3-dose series) [place] Start: 2016 PEDS TO ADULT TRANSI TION ANNUAL ASSESSMENT PEDS TO ADULT TRANSITION ANNUAL ASSESSMENT [facility] Start: 07-30-2015 Varicella Vaccine (1 of 2 - 13+ 2-dose series) Varicella Vaccine (1 of 2 - 13+ 2-dose series) [place] Start: 2014 COVID-19 Vaccine (1) COVID-19 Vaccin e (1) [facility] Work Phone: Start: 2014 Depression Screen Depression Screen [facility] Start: 2014 PEDS TO ADULT TRANSI TION INITIAL DISCUSSION PEDS TO ADULT TRANSITION INITIAL DISCUSSION [facility] Start: 2013 HPV vaccine (1 - 2-d ose series) HPV vaccine (1 - 2-dose series) [facility] Start: 2012 MENINGOCOCCAL B: Consider based on risk (1 of 2 - Risk Bexsero 2-dose series) MENINGOCOCCAL B: Consider based on risk (1 of 2 - Risk Bexsero 2-dose series) [facility] Start: 2009 DTaP/Tdap/Td vaccine (1 - Tdap) DTaP/Tdap/Td vaccine (1 - Tdap) [place] Start: 07-30-2007 COVID-19 Vaccine (1) COVID-19 Vaccin e (1) [facility] Start: 07-30-2003 Hepatitis A vaccine (1 of 2 - 2-dose series) Hepatitis A vaccine (1 of 2 - 2-dose series) [facility] Start: 07-30-2003 Measles,Mumps,Rubell a (MMR) vaccine (1 of 2 - Standard series) Measles,Mumps,Rubella (MMR) vaccine (1 of 2 - Standard series) [place] Start: 01-28-2003 COVID-19 Vaccine (#1) COVID-19 Vacci ne (#1) [facility] Start: 2002 Polio vaccine 0-18 ( 1 of 3 - 4-dose series) Polio vaccine 0-18 (1 of 3 - 4-dose series) [place] Start: 2002 HEPATITIS B (1 of 3 - 3-dose series) HEPATITIS B (1 of 3 - 3-dose series) [facility] Start: 2002 Hepatitis B Vaccine (1 of 3 - 3-dose primary series) Hepatitis B Vaccine (1 of 3 - 3-dose primary series) [facility] [place] Start: 2002 Hepatitis C screening Hepatitis C [facility] [employer] End: 10-07-2021 Culture, Anaerobic and Aerobic [facility] [employer] Work Phone: Comment on above: One Time for 1 Occur rences starting 10/07/2021 until 10/07/2021 End: 10-07-2021 Culture, Blood 1 [employer] Work Phone: Comment on above: One Time for 1 Occur rences starting 10/07/2021 until 10/07/2021 End: 07-15-2021 Culture, Urine [facility] Work Phone: Comment on above: Once for 1 Occurrenc es starting 07/15/2021 until 07/15/2021 End: 01-02-2022 Culture, Urine [employer] Work Phone: Comment on above: Once for 1 Occurrenc es starting 01/02/2022 until 01/02/2022 End: 02-19-2022 Culture, Urine [employer] Work Phone: Comment on above: Once for 1 Occurrenc es starting 02/19/2022 until 02/19/2022 End: 08-29-2022 Culture, Urine [facility] [employer] Work Phone: Comment on above: Once for 1 Occurrenc es starting 08/29/2022 until 08/29/2022 EKG 12 Lead EKG 12 Lead ECG STAT 06/13/2020 1:57 PM EST [employer] Work Phone: End: 10-01-2020 Hemoglobin A1c/Hemoglobin.total in Blood Hemoglobin A1C Lab Routine Once for 1 Occurrences starting 10/01/2020 until 10/01/2020 [employer] Phone: Comment on above: Once for 1 Occurrenc es starting 10/01/2020 until 10/01/2020 Hemoglobin A1c/Hemoglobin.total in Blood Hemoglobin A1C Lab Routine 10/01/2020 10:55 AM EDT [employer] Work Phone: XR Hip - right 2 Views [facility] Payers Date Payer Category Payer Self-pay 2022 Medicaid [id number] 2022 Private Health Insurance [id number] .[id number] 2021 Unknown 2020 Medicaid [id number] 2018 Unknown [id number] 1.2.840.925438.1.13.239.2 .7.3.936531.315 2014 Unknown [employer] - EXCHANGE xxxxxxxxxxxx 2014-Present [phone] [address] [place] [address] xxxxxxxxxxxx [id number] .7.3.062256.315 2014 Unknown [employer] xxxxxxxxxxx 2014-Present [phone] [address] [place] [address] xxxxxxxxxxx 1.2.840.445684.1.13.239.2 .7.3.807684.315 2014 Unknown [employer] [id number] 2014-Present [phone] [address] [place] [address] [id number] 1.2.840.020241.1.13.239.2 .7.3.676127.315 2002 Unknown [id number] 2.16.840.1.097884.3.579.2 .593 2002 Unknown [id number] 2.16.840.1.493241.3.579.2 .593 2002 Unknown [id number] 2.16.840.1.574557.3.579.2 .593 2002 Unknown [id number] 2.16.840.1.119585.3.579.2 .593 2002 Unknown [id number] 2.16.840.1.830868.3.579.2 .593 2002 Unknown [id number] 2.16.840.1.967384.3.579.2 .593 2002 Unknown [id number] 2.16.840.1.253771.3.579.2 .196 2002 Unknown [id number] 2.16.840.1.198273.3.579.2 .196 2002 Unknown [id number] 2.16.840.1.106807.3.579.2 .196 2002 Unknown [id number] 2.16.840.1.920454.3.579.2 .196 2002 Unknown [id number] 2.16.840.1.449577.3.579.2 .196 2002 Unknown [id number] 2.16.840.1.878046.3.579.2 .196 2002 Unknown [id number] 2.16.840.1.749139.3.579.2 .196 2002 Unknown [id number] 2.16.840.1.555850.3.579.2 .196 2002 Unknown [id number] 2.16.840.1.837175.3.579.2 .196 2002 Unknown [id number] 2.16.840.1.447499.3.579.2 .196 2002 Unknown [id number] 2.16.840.1.583885.3.579.2 .173 2002 Unknown [id number] 2.16.840.1.613593.3.579.2 .173 2002 Unknown [id number] 2.16.840.1.629162.3.579.2 .173 2002 Unknown [id number] 2.16.840.1.217075.3.579.2 .173 2002 Unknown [id number] 2.16.840.1.533125.3.579.2 .173 2002 Unknown [id number] 2.16.840.1.255665.3.579.2 .173 2002 Unknown [id number] 2.16.840.1.410281.3.579.2 .173 2002 Unknown [id number] 2.16.840.1.941862.3.579.2 .173 1979 Unknown [id number] 2.16.840.1.954000.3.579.2 .173 1959 Unknown [id number] 1.2.840.993485.1.13.239.2 .7.3.738134.315 1959 Unknown [id number] 1.2.840.434727.1.13.239.2 .7.3.699857.315 Unknown [id number] 2.16.840.1.268488.3.579.2 .531 Social History Date Type Detail Facility Start: 03-11-2013 End: 01-26-2019 Tobacco smoking status NHIS Never smoker [place] Start: 01-26-2019 End: 10-15-2021 Alcohol intake No [place] Start: 2002 Sex Assigned At Not on file [place] Start: 03-11-2013 End: 01-26-2019 Tobacco use and exposure Never used [place] Start: 01-26-2019 End: 10-15-2021 Alcohol intake Current non-drinker of alcohol (finding) [facility] [place], [place] Start: 09-27-2021 End: 03-09-2022 Exposure to SARS-CoV-2 (event) Not sure [place] Tobacco smoking status NDIS Tobacco smoking consumption unknown [facility] History of tobacco use Passive smoker [employer] Work Phone: Start: 10-15-2021 History of Social function [facility] [employer] Start: 2002 Sex Assigned At Female F [facility] Clinical Notes 10-07-2021 to 03-09-2022 Sharona Hoffman DPM - 03/09/2022 4:43 PM ESTChristopher Marjorie Rendon DPM - 02/07/2022 11:39 AM EDTInstructions Note Date & Type Note Facility 03-09-2022 Note HNO ID: [id number] Author: Sharona Hoffman DPM Service: ? Author [...] Previous LEFT ANKLE surgery Dr. Jonny Rene, GERARDO [place] arthroscopic surgery ? Later revised by Dr. 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 History of degenerative joint disease spine? Per mother PCP: Louise Lemos MD, MD No past medical history on [...] PROT, URICACID, HBA1C, VITD25 in the last 74925 hours. X-ray reviewed from RIGHT ANKLE consistent [...] face counseling and/o (more content not included)... [facility] 03-09-2022 History of Presen t illness Narrative [...] LEFT ANKLE surgery Dr. Jonny Rene, DPM [place] arthroscopic surgery ? Later revised by Dr. 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 History of degenerative joint disease spine? Per mother PCP: Louise Lemos MD, MD No past medical history on [...] PROT, URICACID, HBA1C, VITD25 in the last 35100 hours. X-ray reviewed from RIGHT ANKLE consistent [...] Sharona Hoffman DPM documented in this encounter [facility] 02-07-2022 Note HNO ID: [id number] Author: Rk Rendon DPM Service: ? 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 Finley concerning abscess documented in this encounter [facility] Phone: Evaluation note Diagnosis Leach syndrome, left Osteochondritis dissecans of ankle, left documented in this encounter [employer] Phone: evaluation note* Diagnosis Low back pain, unspecified back pain laterality, unspecified chronicity, unspecified whether sciatica present- Primary documented in [facility]* Diagnosis Urinary tract infection without hematuria, site unspecified Retention of urine, unspecified documented in this encounter [employer] Phone: evaluation note* Diagnosis Elevated lactic acid level- Primary Other nonspecific abnormal serum enzyme levels Leukocytosis, unspecified type Abscess Cellulitis and abscess of unspecified site History of miscarriage Personal history of other genital system and obstetric disorders documented in this encounter [facility] Phone: evaluation note* Diagnosis 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 Chronic pain of right ankle [facility] [place]* Diagnosis Chronic pain of both ankles- Primary Altered gait Abnormality of gait 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 Disorder of bone and cartilage, unspecified Peroneal tendinitis of right lower extremity Other enthesopathy of ankle and tarsus 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, unspecified laterality [facility] [place] [facility]* Diagnosis Right wrist pain Pain in joint, forearm documented in this encounter [facility] Phone: evaluation note* Diagnosis Pain Generalized pain documented in this encounter [facility] Phone: evaluation note* Diagnosis Onset Date Resolution Status Right hip pain acute Piriformis syndrome of right side noneactive [facility] Work Phone: Evaluation note* Diagnosis Herniated nucleus pulposus, lumbar- Primary Displacement of lumbar intervertebral disc without myelopathy documented in this encounter [facility] note* Diagnosis Left ankle pain, unspecified chronicity documented in this encounter [facility] note* Diagnosis Arthrodesis status Left ankle pain, unspecified chronicity Osteoarthritis of left ankle or foot Osteoarthrosis, unspecified whether generalized or localized, ankle and foot documented in this encounter [facility] for referral (narrative)* Consultation (Routine) - Pending Review Specialty Diagnoses / Procedures Referred By Contac t Referred To Contact Neurosurgery Diagnoses Low back pain, unspecified back pain laterality, unspecified chronicity, unspecified whether sciatica present Louise Lemos MD [address] [place] [address] Joey Gillespie MD [address] [place] [address] Referral ID Status Reason Start Date Expiration Date V isits Requested Visits Authorized [id number] Pending Review 06/20/2021 06/20/2022 1 1 [facility] for referral (narrative)* Consultation (Routine) - Pending Review Specialty Diagnoses / Procedures Referred By Contac t Referred To Contact Neurosurgery Diagnoses Herniated nucleus pulposus, lumbar Louise Lemos MD [address] [address] Dean Oro MD [address] [place] [address] [place], [place] [id number] Referral ID Status Reason Start Date Expiration Date V isits Requested Visits Authorized [id number] Pending Review 08/01/2023 07/31/2024 1 1 [facility] Reason for Referral Status Reason Specialty Diagnoses / Procedures Referred By Contact Referred To Contact Pending Review Radiology Diagnoses Sprain of tibiofibular ligament of left ankle, sequela Procedures MRI ANKLE LEFT WO CONTRAST Louise Lemos MD [address] [place] [address] Specialty Diagnoses / Procedures Referred By Contac t Referred To Contact Radiology Diagnoses Urinary tract infection without hematuria, site unspecified Retention of urine, unspecified Procedures US URINARY BLADDER LIMITED Dillon Wooten MD [address] [place] [address] Referral ID Status Reason Start Date Expiration Date Visits Re quested Visits Authorized [id number] Closed 07/17/2021 07/17/2022 1 1 Specialty Diagnoses / Procedures Referred By Contsai t Referred To Contact Radiology Diagnoses Arthrodesis status Left ankle pain, unspecified chronicity Osteoarthritis of left ankle or foot Procedures CT ANKLE LEFT WO CONTRAST Fiona Gagn[place], [place] [address] [place] [address] Referral ID Status Reason Start Date Expiration Date Visits Re quested Visits Authorized [id number] Closed 10/11/2023 12/10/2023 1 1 Assessments Diagnosis Sprain of tibiofibular ligament of left ankle, sequela Diagnosis Acute left ankle pain- Primary Diagnosis Trapezius strain, left, initial encounter- Primary Advance Directives No Advanced Directives Records FoundDocuments on File Type Date Recorded 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 Advance Directives and Living Will Power of Inspector And Sorter Documents on File Type Date Recorded 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 ACP-Advance Directive ACP-Power of Inspector And Sorter Documents on File Type Date Recorded 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 Advance Directives and Living Will Power of Inspector And Sorter Documents on File Type Date Recorded 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 ACP-Advance Directive ACP-Power of Inspector And Sorter Advance Directive Response Recorded Date/ Time Advance Directives No July 21, 024 3:55pm Summary Purpose Family History No Family History Records FoundNo Family History Records FoundNo Family History Records FoundNo Family History Records FoundNo Family History Records FoundNo Family History Records FoundNo Family History Records FoundNo Family History Records Found Hospital Course Note Send Summary: Discharge Wilson lang Providers: Provider RoleProvider Name Thierry Ojeda Amolak PrimaryHoy, Douglas M AttendingThierry Braun Note Recipients: Louise Lemos MD - [id number] [] Thierry Braun, DPM Discharge: Summary: Admission Date: .29-Jan-2020 11:21:00 [...] at Discharge: .Home Vital Signs: T PRBPSpO2 [id number]/7294% Date/Time01/29 5: 5: 5: 5: 5:29 Range(36.1C [...] posterior tibial tendon Surgeon: Thierry Braun Resident/Fellow/Other Strap Maker: Nanci Cleary PGY5 Anesthesia: General with regional [...] posterior tibial tendon Surgeon: Thierry Braun Resident/Fellow/Other Strap Maker: Nanci Cleary, PGY5 Anesthesia: General with regional I.V. Fluids: [...] through Care Everywhere. * Ankle Sprain: Teen (South African) documented in this encounter* Instructions* Faye Go MD - 06/13/2020 Tylenol and/or Motrin as needed for any pain. Take Flexeril as needed for muscle spasms. Try [id number] ThermaCare patches or similar product as desired for comfort. Up with your primary care physician within 1 week if symptoms not resolved. Seek medical attention prior to this for any acute concerns. * Attachments The following attachments cannot be sent through Care Everywhere. * Upper Back: Exercises (South African) documented in this encounter Chief Complaint and Reason for Visit Chief Complaint M25.551 - Pain in ri ght hip NEW RT HIP PAIN WX AND MRI [facility] Reason for Visit Right hip pain Piriformis syndrome of right side Additional Source Comments Reason for Visit (unrecogniz ed section and content) Status Reason Specialty Diagnoses / Procedures Referre d By Contact Referred To Contact Closed Radiology Diagnoses Sprain of tibiofibular ligament of left ankle, sequela Procedures [facility] MRI LOWER EXTREM JT, W/O CONTRAST Louise Lemos MD [address] [place] [address] [facility] [address] [place] [address] Status Reason Specialty Diagnoses / Procedures Referre d By Contact Referred To Contact Closed Radiology Diagnoses Secondary osteoarthritis, left ankle and foot Osteochondritis dissecans, left ankle and joints of left foot Pain in left ankle and joints of left foot Procedures [facility] CT SCAN OF LEG CONTRAST Thierry Braun, GERARDO [address] [place] [address] [facility] [address] Scan [address] [place] [address] Reason Comments Ankle Pain left ankle Reason Comments Chest Pain pt states she was si tting in a chair and suddenly had sharp chest pain, through to her back and down her left arm. PT states her left arm now feels heavy Specialty Diagnoses / Procedures Referred By Contac t Referred To Contact Radiology Diagnoses Urinary tract infection without hematuria, site unspecified Retention of urine, unspecified Procedures US URINARY BLADDER LIMITED Dillon Wooten MD [address] [place] [address] Referral ID Status Reason Start Date Expiration Date Visits Re quested Visits Authorized [id number] Closed 07/17/2021 07/17/2022 1 1 Reason Comments Abscess Tailbone, Onset 6 da ys ago, worse now Reason Comments Pain Specialty Diagnoses / Procedures Referred By Contact Referred To Contact Podiatry / ORTHOPAEDIC SURGERY Diagnoses Osteochondral defect, Foot pain *Hand carry XR and MRI Procedures TANIA ACUTE Louise Lemos MD [address] [place] [address] Rk Rendon DPM [address] [place] [address] Referral ID Status Reason Start Date Expiration Date Visits Re quested Visits Authorized [id number] Closed 02/07/2022 04/28/2022 1 1 Reason Comments New Pain Specialty Diagnoses / Procedures Referred By Contac t Referred To Contact Podiatry / ORTHOPAEDIC SURGERY Diagnoses Encounter for general adult medical examination without abnormal findings RIGHT ANKLE (CONSULT FOR SURGERY) Procedures OFFICE/OUTPATIENT ESTABLISHED MOD MDM 30-39 MIN TANIA ACUTE Sharona Hoffman DPM [address] [place] [address] Sharona Hoffman DPM [address] [place] [address] Referral ID Status Reason Start Date Expiration Date Visits Re quested Visits Authorized [id number] Closed 03/09/2022 04/28/2022 1 1 Specialty Diagnoses / Procedures Referred By Asael t Referred To Contact Radiology Diagnoses Arthrodesis status Left ankle pain, unspecified chronicity Osteoarthritis of left ankle or foot Procedures CT ANKLE LEFT WO CONTRAST Fiona Gagnon, [place] [address] [place] [address] Referral ID Status Reason Start Date Expiration Date Visits Re quested Visits Authorized [id number] Closed 10/11/2023 12/10/2023 1 1 INFORMATION SOURCE (unrecogn ized section and content) DATE CREATED AUTHOR [facility] DATE CREATED AUTHOR AUTHOR'S ORGANIZ ATION [facility]/14[facility]2020 [facility] DATE CREATED AUTHOR AUTHOR'S ORGANIZ ATION 10/15/2020 [facility] DATE CREATED AUTHOR AUTHOR'S ORGANIZ ATION 03/10/2022 [facility] [facility] DATE CREATED AUTHOR AUTHOR'S ORGANIZ ATION 07/19/2022 [facility] DATE CREATED AUTHOR AUTHOR'S ORGANIZ ATION 03/14/2023 [facility] DATE CREATED AUTHOR AUTHOR'S ORGANIZ ATION 2023 [facility] DATE CREATED AUTHOR AUTHOR'S ORGANIZ ATION 10/18/2023 [facility] Ordered Prescriptions (unrec ognized section [...] Care Teams (unrecognized sec tion and content) Drawer Upfitter Relationship Specialty Start Date End Date Louise Lemos MD [address] [id number] PCP - General Family Medicine 06/16/21 Drawer Upfitter Relationship Specialty Start Date End Date Louise Lemos MD [address] [place] [id number] PCP - General Family Medicine 03/18/20 Drawer Upfitter Relationship Specialty Start Date End Date Louise Lemos MD [address] [id number] PCP - General Family Medicine 03/18/20 Drawer Upfitter Relationship Specialty Start Date End Date Louise Lemos MD [address] [id number] PCP - General Family Medicine 03/18/20 Drawer Upfitter Relationship Specialty Start Date End Date Louise Lemos MD [address] [id number] PCP - General Family Medicine 03/18/20 Drawer Upfitter Relationship Specialty Start Date End Date Louise Lemos MD [address] [id number] PCP - General Family Medicine 03/18/20 Drawer Upfitter Relationship Specialty Start Date End Date Louise Lemos MD [address] [id number] PCP - General 06/27/09 Drawer Upfitter Relationship Specialty Start Date End Date Louise Lemos MD [address] [id number] PCP - General 06/27/09 Drawer Upfitter Relationship Specialty Start Date End Date Louise Lemos MD [address] [place] [address] PCP - General Family Medicine 03/18/20 Drawer Upfitter Relationship Specialty [place] [address] [place] [address] PCP - General Family Medicine 03/18/20 Drawer Upfitter Relationship Specialty Start Date End Date Louise Lemos MD [address] [place] [address] PCP - General Family Medicine 03/18/20 Team Status: Active Member Role Status Dates Louise Lemos MD Primary Care Provider Active Team Status: Active Member Role Status Dates Hunter Richards DO Attending Provider Active S tart: July 26, 2023 Team Status: Inactive Member Role Status Dates Hunter Richards DO Attending Provider Active S tart: July 26, 2023 End: July 26, 2023 Louise Lemos MD Primary Care Provider Active Start: July 26, 2023 End: July 26, 2023 Drawer Upfitter Relationship Specialty Start Date End Date Louise Lemos MD [address] [place] [address] PCP - General Family Medicine 06/16/21 Drawer Upfitter Relationship Specialty Start Date End Date Louise Lemos MD [address] [place] [address] PCP - General Family Medicine 03/18/20 Drawer Upfitter Relationship Specialty Start Date End Date Louise Lemos MD [address] [place], [place] [id number] PCP - General Family Medicine 03/18/20 Scheduled [...] - Provider: Lin Arevalo RN) lidocaine-EPINEPHrine 1 %-1:[id number] injection 20 mL (COMPLETED) 20 mL, IntraDERmal, [...] (New Bag - Prov ider: Alida Gallagher RN)215 (Stopped - Provider: Lin Arevalo RN) Continuous [...] or prosecute any alcohol or drug abuse patient.[facility] System[facility] the event this information is protected by the Federal Confidentiality of Alcohol and Drug Abuse Patient Records regulations: The Federal rules restrict any use of the information to criminally investigate or prosecute any alcohol or drug abuse patient.[facility] Goals (unrecognized section and content) Goals may be documented in a n alternate section FOR RECORDS PERTAINING TO PATIENTS WHO ARE [...] BE BASED ON THE PRIMARY CLINICAL RECORDS. [facility] Photos [facility] Like [facility]. provides no warranty or guarantee of the accuracy or completeness of information in this document.
== END 2024-01-02 16:44 | disposition home or self-care (01) ==
LOC: RAD 16:45
PROVIDERS: PCP Family Medicine; Visit Provider Family Medicine
DX: M25.572 Pain in left ankle and joints of left foot (principal); M24.672 Ankylosis, left ankle
CPT/HCPCS: 73600

== ENCOUNTER 2024-03-02 15:43 | Outpatient (OUT) | payer OTHER, SELFPAY ==
[2024-03-02 16:07] LABS: Bilirubin Urine NEGATIVE (NEGATIVE); Blood Urine NEGATIVE (NEGATIVE); Clarity Urine CLEAR (CLEAR); Color Urine LT. YELLOW (YELLOW); Glucose Urine UA NEGATIVE (NEGATIVE); Ketones Urine NEGATIVE (NEGATIVE); Leukocyte Esterase Urine SMALL (NEGATIVE); Nitrite Urine NEGATIVE (NEGATIVE); Protein Urine NEGATIVE (NEG/TRACE); Urobilinogen Urine 0.2 EU/dL (0.2-1.0); pH Urine 6.5 (5.0-9.0)
[2024-03-02 16:16] LABS: Bacteria Urine SMALL #/HPF (NONE SEEN); Cast Seen? NONE SEEN #/LPF (NONE SEEN); Crystals Seen? None Seen #/HPF (None Seen); Mucus Urine NONE SEEN (NONE SEEN); RBC Urine 0-2 #/HPF (0-2); Squamous Epithelial Cell Urine MODERATE #/LPF (NONE/RARE)
== END 2024-03-02 15:44 | disposition home or self-care (01) ==
LOC: LAB 15:45
PROVIDERS: PCP Family Medicine; Visit Provider Nurse Practitioner Family
DX: R30.0 Dysuria (principal)
CPT/HCPCS: 81001; 87086

== ENCOUNTER 2024-07-28 17:59 | Outpatient (OUT) | payer OTHER, SELFPAY ==
--- NOTE | 2024-07-28 18:12 | XR_ITS ---
[place] [address] Patient Name: MARILEE MACKENZIE MRN: [id number] date: 2000 Sex: F Assigned Patient Location: RAD Current Patient Location: [facility] Accession/Order Number: [id number] Exam Date: 07/28/2024 21:27 Report Date: 07/28/2024 21:29 At the request of: LOUISE LEMOS MD Procedure: XR hip RT min 2V 2 views right plain film COMPARISON: None HISTORY: Right hip pain ACUTE FINDINGS: None DEGENERATIVE CHANGE: Unremarkable SOFT TISSUE FINDINGS: Unremarkable JOINT EFFUSION: None POSTOP CHANGES: None BONY MINERALIZATION: Adequate XR/XR hip RT min 2V IMPRESSION: Unremarkable exam Impression dictated by: Juancarlos Mendoza M.D.07/28/2024 9:29 PM Dictation Location: [place] [address] Electronically authenticated by: [id number] Y Date: 07/28/2024 21:29
--- NOTE | 2024-07-28 18:13 | XR_ITS ---
[place] [address] Patient Name: MARILEE MACKENZIE MRN: [id number] date: 2000 Sex: F Assigned Patient Location: [facility] Current Patient Location: [facility] Accession/Order Number: [id number] Exam Date: 07/28/2024 21:25 Report Date: 07/28/2024 21:26 At the request of: LOUISE LEMOS MD Procedure: XR lumbar spine 2-3V 2 views Lumbar Spine HISTORY: Right lower back pain COMPARISON: None POSTSURGICAL CHANGES: None BONY ALIGNMENT: Adequate HYPERMOBILITY:No bending imaging. LISTHESIS:None FRACTURE: None DEGENERATIVE CHANGES: Mild L5-S1 disc space narrowing SOFT TISSUES: Unremarkable BONY MINERALIZATION:Adequate XR/XR lumbar spine 2-3V IMPRESSION: Mild L5-S1 spondylosis Impression dictated by: Juancarlos Mendoza M.D.07/28/2024 9:26 PM Dictation Location: [place] [address] Electronically authenticated by: [id number] Y Date: 07/28/2024 21:26
== END 2024-07-28 18:00 | disposition home or self-care (01) ==
LOC: RAD 18:01
PROVIDERS: PCP Family Medicine; Visit Provider Family Medicine
DX: M51.26 Other intervertebral disc displacement, lumbar region (principal); M25.551 Pain in right hip; M47.816 Spondylosis without myelopathy or radiculopathy, lumbar region
CPT/HCPCS: 72100; 73502

== ENCOUNTER 2024-12-02 16:17 | Outpatient (OUT) | payer OTHER, SELFPAY ==
--- OUTSIDE RECORDS SUMMARY | 2024-11-18 07:00 | XMS_ITS ---
Author Organization [facility] [place] Address [address] [place] [address] Care Team Providers Care Bunghole Borer Name Role Phone TERE LEMOS MD Primary Care Provider Tere Lemos Unavailable [phone] Allergies Allergen (clinical drug ingredient) Drug/Non Drug Allergy documented on EMR Reaction Allergy Type Onset Date Status mometasone Nasonex Unknown Drug Allergy Active REASON FOR VISIT Paperwork for disability- said for everything- mom said he will know what to do , Also needs letter Medications Medication SIG (Take, Route, Frequency, Duration) Notes Start Date End Date Status Vienva 0.1-20 MG-MCG TAKE 1 TABLET BY [facility] EVERY DAY FOR 28 DAYS for 28 Active Wegovy 0.25 MG/0.5ML 0.25 mg Subcutaneou s weely for 30 days 09/17/2024 Active Voltaren 1 % Apply to affected ar eas Externally BID 08/27/2024 Active hydrOXYzine HCl 25 MG 1 tablet as needed Orally qid for 10 days 08/12/2024 Active Gabapentin 300 MG TAKE 1 CAPSULE BY [facility] THREE TIMES A DAY for 30 Active Aspirin 325 MG 1 tablet Orally Once a day 09/18/19 25 Active Vitamin D3 50 MCG (1999) 1 capsule Orally Once a day for 90 days Active Social History Tobacco Use: Social History Observation Description Date Details (start date - stop date) Never Smoker NA - NA Tobacco Use/Smoking Question Answer Notes Patient is a nonsmoker Vital Signs Blood pressure systolic 128 mm Hg 11/19/19 25 Blood pressure diastolic 84 mm Hg 025 Height 68 in 11/18/2024 Weight 224.2 lbs 11/18/2024 BMI 34.09 kg/m2 11/18/2024 Encounters Encounter Location Date Provider Diagnosis [facility] [address] [facility] [place] [address] 11/18/2024 Tere Lemos Bulging lumbar disc M51.26 and Urge incontinence N39.41 Assessments Encounter Date Diagnosis (ICD Code) Assessment Notes Treatment Notes Treatment Clinical Notes Section Notes 11/18/2024 Bulging lumbar disc (ICD-10 - M51.26) 11/18/2024 Urge incontinence (ICD-10 - N39.41) Plan Of Treatment No Information Progress Notes * Blanka MACKENZIE RDOB:2000 (24 yo F)Acc No.[id number]:11/18/2024 Progress Note Patient: Blanka WILLAMS Provider: Merna Lemos ([facility])MD :2000 A ge:24 Y S ex:Female Date:11/18/2024 Address:[address] [place], [place] [phone] Pcp:TERE LEMOS MD Check In:10:47 AM ESTCheck O ut:12:05 PM EST Subjective: * Chief Complaints: * P aperwork for disability- said for everything- mom said he will know what to do Also needs letter * ROS: E ENT: hearing changes d enies. v isual changes d enies.?non-healing mouth sores d enies. s wollen glands or neck lumps d enies. h oarseness d enies. s ore throat d enies. d ifficulty swallowing d enies. n ose bleeds d enies. n baldomero congestion d enies. e ar ache d enies. e ar discharge?denies. r inging in ears d enies. l ight sensitivity d enies. e ye pain d enies. b lurring d enies. e ye irritation d enies. d ouble vision d enies.?vision loss d enies. G eneral/Constitutional: Sweats: D enies. F atigue d enies. S leep problems d enies. A norexia d enies. M alaise d enies. W eight loss d enies.?Fatigue or Weakness d enies. F ever or Chills d enies. C ardiovascular: Shortness of Breath w/lying flat d enies. L ightheadedness/dizziness d enies. C hest tightness/ heavy pressure d enies. S welling of legs, ankles, or feet d enies. W aking up with shortness of breath d enies. C hest pain denies. P alpitations d enies. W eight gain d enies. R espiratory: Chronic or frequent cough d enies. C oughing up blood?denies. D ifficulty breathing d enies. P roductive cough d enies. S noring?denies. S hortness of breath that awakens from sleep (PND) d enies. C hest pain d enies. S putum production d enies. W heezing d enies. M usculoskeletal: Joint pain d enies. J oint Fluid d enies. B ack pain d enies. K nee pain d enies. N tracey pain d enies. J oint Stiffness d enies. M uscle cramps d enies. W eakness of muscles d enies. A rthritis d enies. M uscle aches d enies. P ain in shoulder(s) d enies. S wollen joints d enies. * Active Problem List M51.26 Bulging lumbar disc Modified On:07/31/2023U Status:confirmed M51.36 DDD (degenerative di sc disease), lumbar Modified On:07/31/2023U Status:confirmed N30.20 Other chronic cystit is without hematuria Modified On:08/01/2021U Status:confirmed N39.41 Urge incontinence Modified On:08/01/2021U Status:confirmed M50.90 Cervical disc disord er, unspecified, unspecified cervical region Modified On:07/16/2023U Status:confirmed M51.26 Other intervertebral disc displacement, lumbar region Modified On:09/28/2022U Status:confirmed G47.00 Insomnia, unspecifie d Modified On:09/28/2022 Status:confirmed E55.9 Vitamin D deficiency , unspecified Modified On:05/30/2023 Status:confirmed K76.0 Fatty (change of) li jewell, not elsewhere classified Modified On:09/28/2022 Status:confirmed F90.9 Attention-deficit hy peractivity disorder, unspecified type Modified On:09/28/2022 Status:confirmed M25.372 Left ankle instabili ty Modified On:01/09/2023 Status:confirmed M25.551 Right hip pain Modified On:07/16/2023 Status:confirmed E66.9 Obesity Modified On:06/27/2023 Status:confirmed M46.1 Inflammation of righ t sacroiliac joint Modified On:07/22/2023U Status:confirmed G57.00 Piriformis syndrome Modified On:07/31/2023 Status:confirmed G89.29 Other chronic pain Modified On:09/13/2023 Status:confirmed N94.6 Dysmenorrhea Modified On:03/18/2024 Status:confirmed Z48.89 Suture check Modified On:06/10/2024 Status:confirmed T14.8XXA Suture of skin wound Modified On:06/10/2024 Status:confirmed Z00.00 Well adult Modified On:09/17/2024U Status:confirmed E88.810 Metabolic syndrome Modified On:09/17/2024 Status:confirmed * Medical History: * Surgical History: K nee Surgery 2020Foot bone replacement holecystectomy ar Tubes Tonsillectomy and Adenoidectomy 2004t tubes for ear 2013left ankle surgery 2019left foot surgery 2023left knee surgery 08/2024 * Hospitalization/Major Diagno stic Procedure: U TI ancreatitis ost op pain 2019 * Family History: F ather: alive, alcoholism. M other: alive, uti. S ister(s): alive. P aternal Grandmother: bladder cancer. 4 sister(s) - healthy. . * Social History: T obacco Use: T obacco Use/Smoking P atient is a n onsmoker * Medications: T akingAspirin 325 MG Tablet 1 tablet Orally Once a day Gabapentin 300 MG Capsule TAKE 1 CAPSULE BY MOUTH THREE TIMES A DAY hydrOXYzine HCl 25 MG Tablet 1 tablet as needed Orally qid Vienva(Levonorgestrel-Ethinyl Estrad) 0.1-20 MG-MCG Tablet TAKE 1 TABLET BY MOUTH EVERY DAY FOR 28 DAYS Vitamin D3 50 MCG (2000 UT) Capsule 1 capsule Orally Once a day Voltaren 1 % Gel Apply to affected areas Externally BID Wegovy(Semaglutide-Weight Management) 0.25 MG/0.5ML Solution Auto-injector 0.25 mg Subcutaneous weely Taking Aspirin 325 MG Tablet 1 tablet Orally Once a day Taking Gabapentin 300 MG Capsule TAKE 1 CAPSULE BY MOUTH THREE TIMES A DAY Taking hydrOXYzine HCl 25 MG Tablet 1 tablet as needed Orally qid Taking Vienva(Levonorgestrel-Ethinyl Estrad) 0.1-20 MG-MCG Tablet TAKE 1 TABLET BY MOUTH EVERY DAY FOR 28 DAYS Taking Vitamin D3 50 MCG (2000 UT) Capsule 1 capsule Orally Once a day Taking Voltaren 1 % Gel Apply to affected areas Externally BID Taking Wegovy(Semaglutide-Weight Management) 0.25 MG/0.5ML Solution Auto-injector 0.25 mg Subcutaneous weely DiscontinuedCefdinir 300 MG Capsule 2 capsule Orally once a day Pyridium(Phenazopyridine HCl) 200 MG Tablet 1 tablet after meals Orally Three times a day Medication List reviewed and reconciled with the patientDiscontinued Cefdinir 300 MG Capsule 2 capsule Orally once a day Discontinued Pyridium(Phenazopyridine HCl) 200 MG Tablet 1 tablet after meals Orally Three times a day Medication List reviewed and reconciled with the patient * Allergies: N asonex: Allergy - Criticality Highno[Allergies Verified] Objective: * Vitals: W t:224.2lbs, Ht: 68 in, BP:128/84mm Hg, BMI:34.09Index, Ht-cm: 172.72 cm, Wt-k.7 kg. * Examination: P hysical Exam: GENERAL: w ell developed, well nourished, in no acute distress. HEAD: n ormocephalic/atraumatic. EYES: p upils equal, round and reactive to light, conjunctivae and sclerae normal. EARS: n o deformity or lesion of external ear, canals and TM appear normal bilaterally, TM's intact, not inflamed with normal light reflex, hearing grossly normal to conversational speech. NOSE: n o deformity, discharge, inflammation, or lesions.? MOUTH: m ucous membranes moist, normal oropharynx and posterior pharynx without lesions or exudates, tongue normal, dentition normal. NECK: n tracey supple, no masses or palpable cervical nodes, trachea midline, thyroid without nodules, masses, tenderness, or enlargement. CHEST: n o chest wall deformity, no chest wall tenderness.? LUNGS: n ormal respiratory effort and clear to auscultation, no wheezes, rales, or rhonchi, good air exchange. CARDIO: r egular rate and rhythm, normal S1 and S2, nor murmur, rub, or gallop. PULSES: n ormal capillary refill. ABDOMEN: s oft, non-distended, non-tender, no masses. MUSCULOSKELETAL: n o deformity or scoliosis noted, normal range of motion, joints normal, no erythema, edema, effusion, or ecchymosis. EXTREMITY: n o clubbing, cyanosis, edema, or deformity with normal ROM in both upper and lower bilateral extremities. NEUROLOGIC: g rossly normal. SKIN: n o rashes, ulcerations, or suspicious lesions. LYMPH NODES: n o cervical adenopathy, nodes normal. MENTAL STATUS: a lert and oriented x3, normal mood and affect. Assessment: * Assessment: 1. B ulging lumbar disc - M51.26 (Primary) 2 . U rge incontinence - N39.41? Plan: * Treatment: * Procedure Codes: * Preventive Medicine: Screenings/Counseling: B MD ACTION PLAN Above Normal BMI Follow-up D ietary management education, guidance, and counseling * * Sign off status: Completed Visit Status: C HK (Check Out) true * Provider: Merna Lemos ([facility])MD Date: 0 11/18/2024 Generated for Printi ng/Tenzing/eTransmitting on: 0 12/02/2024 04:24 PM EDT History and Physical Notes * Examination Category Sub-Category Detail Notes Category Not es Physical Exam GENERAL: well developed, well nourished, in no acute distress HEAD: normocephalic/atraum atic EYES: pupils equal, round and reactive to light, conjunctivae and sclerae normal EARS: no deformity or lesi on of external ear, canals and TM appear normal bilaterally, TM's intact, not inflamed with normal light reflex, hearing grossly normal to conversational speech NOSE: no deformity, discha rge, inflammation, or lesions MOUTH: mucous membranes seth st, normal oropharynx and posterior pharynx without lesions or exudates, tongue normal, dentition normal NECK: neck supple, no mass es or palpable cervical nodes, trachea midline, thyroid without nodules, masses, tenderness, or enlargement CHEST: no chest wall deform ity, no chest wall tenderness LUNGS: normal respiratory e ffort and clear to auscultation, no wheezes, rales, or rhonchi, good air exchange CARDIO: regular rate and rhy thm, normal S1 and S2, nor murmur, rub, or gallop PULSES: normal capillary ref ill ABDOMEN: soft, non-distended, non-tender, no masses RECTAL: MUSCULOSKELETAL: no deformity or scol iosis noted, normal range of motion, joints normal, no erythema, edema, effusion, or ecchymosis EXTREMITY: no clubbing, cyanosi s, edema, or deformity with normal ROM in both upper and lower bilateral extremities NEUROLOGIC: grossly normal SKIN: no rashes, ulceratio ns, or suspicious lesions LYMPH NODES: no cervical adenopat hy, nodes normal MENTAL STATUS: alert and oriented x 3, normal mood and affect
--- NOTE | 2024-12-02 | XR_ITS ---
[place] [id number] Patient Name: MARILEE MACKENZIE MRN: [id number] date: 2000 Sex: F Assigned Patient Location: [facility] Current Patient Location: [facility] Accession/Order Number: [id number] Exam Date: 12/02/2024 18:47 Report Date: 12/02/2024 18:49 At the request of: LOUISE LEMOS MD Procedure: XR lumbar spine 2-3V X-rays lumbar spine, 2 views COMPARISON: 05/18/2024 INDICATION: Low back pain multiple sites FINDINGS:: Mild straightening of the normal lumbar lordosis. No evidence acute fracture malalignment. Multilevel foraminal stenosis identified involving the upper lumbar and mid lumbar levels. Suspect minimal intervertebral space narrowing L5-S1 with associated facet arthropathy. XR/XR lumbar spine 2-3V IMPRESSION: Mild straightening could be related to positioning or muscle spasm. Otherwise negative acute fracture malalignment. Impression dictated by: Del Salinas M.D. 12/02/2024 6:49 PM Dictation Location: [employer] Electronically authenticated by: [id number] Y Date: 12/02/2024 18:49
--- NOTE | 2024-12-02 | XR_ITS ---
[place] [address] Patient Name: MARILEE MACKENZIE MRN: [id number] date: 2000 Sex: F Assigned Patient Location: [facility] Current Patient Location: [facility] Accession/Order Number: [id number] Exam Date: 12/02/2024 18:49 Report Date: 12/02/2024 18:50 At the request of: LOUISE LEMOS MD Procedure: XR sacroiliac joint ANDREW 3 views of the sacroiliac joints INDICATION: Low back pain at multiple sites COMPARISON: Hip x-ray 07/28/2024 FINDINGS: No fracture dislocation. Sacroiliac joints are symmetric without diastases or definite areas of sclerosis. XR/XR sacroiliac joint ANDREW IMPRESSION: Unremarkable imaging of the sacroiliac joints. Impression dictated by: Del Salinas M.D. 12/02/2024 6:50 PM Dictation Location: [place] [address] Electronically authenticated by: [id number] Y Date: 12/02/2024 18:50
--- OUTSIDE RECORDS SUMMARY | 2024-12-02 10:26 | XMS_ITS ---
Author Organization [facility] [place] Address [address] [place] [address] Care Team Providers Care Filler Leaf Cutter Long Name Role Phone TERE LEMOS MD Primary Care Provider [phone] Tere Lemos Unavailable [phone] REASON FOR VISIT requesting xray Encounters Encounter Location Date Provider Diagnosis [facility] [address] [place] [address] 12/02/2024 Tere Lemos Low back pain at multiple sites M54.50 Assessments Encounter Date Diagnosis (ICD Code) Assessment Notes Treatment Notes Treatment Clinical Notes Section Notes 12/02/2024 Low back pain at multiple sites (ICD-10 - M54.50) Plan Of Treatment Pending Test Test Name Order Date XR LSPINE 2_3 VIEWS 12/02/2024 XR Sacroiliac joints (3 views) * 025 Progress Notes * Blanka MACKENZIE RDOB:2000 (24 yo F)Acc No.[id number]:12/02/2024 Patient: Rina Blanka SEALS :2000 A ge:24 Y S ex:Female Address:[address] [place] [address], [address] Subjective: * Chief Complaints: * R equesting xray * Medical History: * Surgical History: * Hospitalization/Major Diagno stic Procedure: * Medications: Objective: * Vitals: * Physical Examination: Assessment: * Assessment: 1. L ow back pain at multiple sites - M54.50 (Primary) Plan: * Treatment: * Procedure Codes: * true * Date: Generated for Tin [place]/Rylie/Elba on: 0 12/02/2024 04:24 PM EDT
--- OUTSIDE RECORDS SUMMARY | 2024-12-02 16:24 | XMS_ITS | Patient Health Record ---
Author Organization [facility] in [place] Address [address] [place] [address] Care Team Providers Care Entry Level Receptionist Name Role Phone TERE LEMOS MD Primary Care Provider Tere Lemos Unavailable [phone] Consuelo Worrell Unavailable [phone] Allergies Allergen (clinical drug ingredient) Drug/Non Drug Allergy documented on EMR Reaction Allergy Type Onset Date Status mometasone Nasonex Unknown Drug Allergy Active Results Component Value Reference Range Notes XR ANKLE LT 2V Reviewed date:01/05/2024 08:10:34 PM Interpretation: Performing Lab: Notes/Report: Source Facility: [place] [address] XRay Report Signed Patient: BLANKA MACKENZIE MR#: [id number] : 2000 Acct:[id number] Age/Sex: 23 / F ADM Date: 01/02/24 Loc: RAD Attending Dr: Louise Lemos M.D. Ordering Physician: Louise Lemos M.D. Date of Service: 01/02/24 Procedure(s): XR ankle LT 2V Accession Number(s): [id number] cc: Louise Lemos M.D. [place] [address] Patient Name: BLANKA MACKENZIE MRN: [id number] date: 2000 Sex: F Assigned Patient Location: RAD Current Patient Location: Accession/Order Number: [id number] Exam Date: 01/02/2024 16:50 Report Date: 01/03/2024 06:57 At the request of: LOUISE LEMOS Procedure: XR ankle LT 2V PROCEDURE: XR ankle LT 2V HISTORY: Left ankle pain, M25.572 COMPARISON: XR ankle left 07/16/2021 FINDINGS: BONES:Mechanical fusion of the tibiotalar joint via anterior plate and multiple screws. No appreciable hardware fracture loosening. Small corticated ossification distal to the lateral malleolus favoring heterotopic bone formation or remote fracture fragment. SOFT TISSUES:Medial soft tissue swelling. EFFUSION:None visible. OTHER: Negative. XR/XR ankle LT 2V IMPRESSION: 1. Prior mechanical fusion of the ankle joint without evidence of hardware failure or change in alignment. There is been revision of the hardware since the prior study. 2. No appreciable acute abnormality. Electronically authenticated by: MICAH PERALTA Date: 01/03/2024 06:57 Dictated By: Micah Peralta M.D. Signed By: 01/03/2459 DD/ TD/TT: Race Relations Professor: [place] [address] XRay Report Signed Patient: BLANKA MACKENZIE MR#: [id number] : 2000 Acct:[id number] Age/Sex: 23 / F ADM Date: 01/02/24 Loc: RAD Attending Dr: Kj Lemos M.D. Ordering Physician: Louise Lemos M.D. Date of Service: 01/02/24 Procedure(s): XR ank le LT 2V Accession Number(s): [id number] cc: Louise Lemos M.D. [address] [address] Patient Name: BLANKA MACKENZIE MRN: [id number] date: 2000 Sex: F Assigned Patient Location: [facility] Current Patient Location: Accession/Order Number: [id number] Exam Date: 01/02/2024 16:50 Report Date: 01/03/2024 06:57 At the request of: LOUISE LEMOS Procedure: XR ankle LT 2V PROCEDURE: XR ankle LT 2V HISTORY: Left ankle pain, M25.572 COMPARISON: XR ankle left 07/16/2021 FINDINGS: BONES:Mechanical fusion of the tibiotalar joint via anterior plate and multiple screws. No appreciab le hardware fracture loosening. Small corticated ossification distal to the lateral malleolus favoring heterotopic bone formation or remote fracture fragment. SOFT TISSUES:Medial soft tissue swelling. EFFUSION:None visible. OTHER: Negative. XR/XR ankle LT 2V IMPRESSION: 1. Prior mechanical fusion of the ankle joint without evidence of hardware failure or change in alignment. There is been revision of the hardware since the prior study. 2. No appreciable acute abnormality. Electronically authenticated by: MICAH PERALTA Date: 01/03/2024 06:57 Dictated By: Micah Peralta M.D. Signed By: 01/03/2459 DD/ TD/TT: Race Relations Professor: EDITH RANDOM W or MICROSCOPIC Reviewed date:03/05/2024 12:25:55 PM Interpretation: Performing Lab: Notes/Report: [facility] , Color Urine LT. YELLOW YELLOW Clarity Urine CLEAR CLEAR Specific [place]ell Urine 1.020 1.005-1.025 pH Urine 6.5 5.0-9.0 Protein Urine NEGATIVE NEG/TRACE mg/dL Glucose Urine UA NEGATIVE NEGATIVE mg/dL Bilirubin Urine NEGATIVE NEGATIVE Ketones Urine NEGATIVE NEGATIVE mg/dL Blood Urine NEGATIVE NEGATIVE Nitrite Urine NEGATIVE NEGATIVE Urobilinogen Urine 0.2 0.2-1.0 EU/dL Leukocyte Esterase Urine SMALL NEGATIVE WBC Urine 2-5 NONE SEEN #/HPF RBC Urine 0-2 0-2 #/HPF Bacteria Urine SMALL NONE SEEN #/HPF Mucus Urine NONE SEEN NONE SEEN Squamous Epithelial Cell Urine MODERATE NONE/RARE #/LPF Crystals Seen? None Seen None Seen #/HPF Cast Seen? NONE SEEN NONE SEEN #/LPF Performing Lab: see note ML - [facility]CG Reviewed date:03/22/2024 08:35:34 PM Interpretation: Performing Lab:[facility], [address] [place] [address] , [place] [address] PH:[phone] Notes/Report: HCG, Quant 2.2 0-7 mIU/mL Non-preg premeno <=5 Postmeno <=8 Male <=3 If HCG results do not concur with clinical observations, additional testing to confirm results is recommended. [facility] Reviewed date:03/23/2024 08:23:58 PM Interpretation: Performing Lab:[address] [place] [address] PH:[phone] Notes/Report: HCG, Quant 1.8 0-7 mIU/mL Non-preg premeno <=5 Postmeno <=8 Male <=3 If HCG results do not concur with clinical observations, additional testing to confirm results is recommended. URINE CULTURE Reviewed date:04/07/2024 08:33:13 PM Interpretation: Performing Lab:[address] [place] [address] PH:[phone] Notes/Report: Specimen Description .URINE Culture NO SIGNIFICANT GROWTH Report Status FINAL 04/07/2024 Urinalysis Microscopic Reviewed date:04/06/2024 08:12:47 PM Interpretation: Performing Lab:[address] [place] [address] PH:[phone] Notes/Report: Urine WBC's 5 TO 10 0-5 /HPF Urine RBC's 0 TO 2 0-2 /HPF Epithelial cells 2 TO 5 0-25 /HPF UA-DIP Reviewed date:04/06/2024 08:12:47 PM Interpretation: Performing Lab:[address] [place] [address] PH:[phone] Notes/Report: Color Yellow YEL Clarity, Urine Clear CLEAR Glucose,Semi-qnt,Ur TRACE NEG mg/dL Bilirubin, SemiQt,Ur NEGATIVE NEG Ketones, Urine NEGATIVE NEG mg/dL Spec. Lowell,Ur <1.005 1.010-1.020 Blood, Urine NEGATIVE NEG PH,Ur 6.0 5.0-9.0 Protein, Semi-qnt,Ur NEGATIVE NEG mg/dL Urobilinogen,Ur Normal 0.0-1.0 EU/dL Nitrite,Ur NEGATIVE NEG Leukocyte Esterase SMALL NEG SERUM Reviewed date:04/06/2024 08:12:47 PM Interpretation: Performing Lab:[address] [place] [address] PH:[phone] Notes/Report: HCG Screen, Blood NEGATIVE Specimens with hCG levels near the threshold of the test (25 mIU/mL) NEG may give a negative or indeterminate result. In such cases, another test should be performed with a new specimen in 48-72 hours. If early is suspected clinically in this setting, correlation with quantitative serum b-hCG level is suggested. [facility] has confirmed the use of plasma for this test. This has not been cleared or approved by the U.S. Food and Drug Administration. The FDA has determined that such clearance is not necessary. URINE CULTURE Reviewed date:07/22/2024 01:44:51 PM Interpretation: Performing Lab:[address] [place] [address] PH:[phone] Notes/Report: Specimen Description .CLEAN CATCH URINE Culture ESCHERICHIA COLI >100,000 CFU/ML Report Status FINAL 07/22/2024 Organism ESCHERICHIA COLI >100,000 CFU/ML Method TALITA Ampicillin <=2 SUSCEPTIBLE Cefazolin <=4 SUSCEPTIBLE Cefazolin Cefazolin sensitivity results can be used to predict the effectiveness of oral Cefazolin cephalosporins (eg. Cephalexin) in uncomplicated Urinary Tract Infections due Cefazolin to E. coli, K. pneumoniae, and P. mirabilis Ceftriaxone <=0.25 SUSCEPTIBLE ESBL NEGATIVE Gentamicin <=1 SUSCEPTIBLE Levofloxacin <=0.12 SUSCEPTIBLE Nitrofurantoin <=16 SUSCEPTIBLE Piperacillin/Tazobactam <=4 SUSCEPTIBLE Tobramycin <=1 SUSCEPTIBLE Trimethoprim/Sulfa <=20 SUSCEPTIBLE XR FOOT LEFT (2 VIEWS) Reviewed date:08/11/2024 01:10:08 PM Interpretation: Performing Lab: Notes/Report: EXAMINATION: Performed at: [address] [place] [address] Performed at: XR ANKLE LEFT (2 VIEWS) Reviewed date:08/11/2024 01:10:08 PM Interpretation: Performing Lab: Notes/Report: EXAMINATION: Performed at: [address] [place] [address] Performed at: XR FOOT RIGHT (2 VIEWS) Reviewed date:08/11/2024 01:10:08 PM Interpretation: Performing Lab: Notes/Report: EXAMINATION: Performed at: [address] [place] [address] Performed at: T4 Reviewed date:09/23/2024 01:03:05 PM Interpretation: Performing Lab:[facility], [address] [place] [address] PH:[phone] Notes/Report: Thyroxine T4 11.5 4.5-11.7 ug/dL VD25 ([facility]) Reviewed date:09/23/2024 01:03:05 PM Interpretation: Performing Lab:[facility], [address] [place] [address], [place] [address] PH:[phone] Notes/Report: Vitamin D 25 [place] 32.9 30.0-100.0 ng/mL Reference Range: Vitamin D status Range Deficiency <20 ng/mL Mild Deficiency 20-30 ng/mL Sufficiency 30-100 ng/mL Toxicity >100 ng/mL CBC AND AUTO DIFF * Reviewed date:09/22/2024 03:41:41 PM Interpretation: Performing Lab:[address] [place] [address] PH:[phone] Notes/Report: WBC Count 12.8 3.5-11.3 k/uL RBC Count 4.43 3.95-5.11 m/uL Hemoglobin 12.1 11.9-15.1 g/dL Hematocrit 36.5 36.3-47.1 % MCV 82.4 82.6-102.9 fL MCH 27.3 25.2-33.5 pg MCHC 33.2 28.4-34.8 g/dL RDW 13.3 11.8-14.4 % Platelet Count 359 138-453 k/uL MPV 10.0 8.1-13.5 fL NRBC Automated 0.0 0.0 per 100 WBC Neutrophil (Seg) 74 36-65 % Lymphocyte 18 24-43 % Monocyte 7 3-12 % Eosinophil 1 1-4 % Basophil 0 0-2 % Immature Granulocyte 0 0 % Abs.Neutrophil (Seg) 9.48 1.50-8.10 k/uL Abs. Lymph 2.31 1.10-3.70 k/uL Abs. Monocyte 0.83 0.10-1.20 k/uL Abs. Eosinophil 0.09 0.00-0.44 k/uL Abs. Basophil 0.04 0.00-0.20 k/uL Abs.Imm.Granulocyte 0.04 0.00-0.30 k/uL COMPREHENSIVE METABOLIC PANE L Reviewed date:09/22/2024 03:41:41 PM Interpretation: Performing Lab:[facility], [address] [place] [address] [place] [address] PH:[phone] Notes/Report: NA (Sodium) 141 136-145 mmol/L K (Potassium) 4.1 3.7-5.3 mmol/L Chloride 104 98-107 mmol/L CO2 21 20-31 mmol/L Anion Gap 16 9-16 mmol/L Glucose 84 74-99 mg/dL BUN (Urea N) 14 6-20 mg/dL Creatinine 0.7 0.50-0.90 mg/dL eGFR >90 >60 mL/min/1.73m2 These results are not intended for use [...] following therapy that affects renal tubular secretion. BUN/CRE Ratio 20 9-20 Calcium 9.9 8.6-10.4 mg/dL Protein, Total 8.1 6.6-8.7 g/dL Albumin 4.8 3.5-5.2 g/dL Albumin/Glob Ratio 1.4 1.0-2.5 Bilirubin, Total 0.5 0.00-1.20 mg/dL Alkaline Phos 74 35-104 U/L ALT 22 10-35 U/L AST 29 10-35 U/L FREE T3 Reviewed date:09/23/2024 01:03:05 PM Interpretation: Performing Lab:[facility], [address] [place] [address] PH:[phone] Notes/Report: T3, Free 3.26 2.00-4.40 pg/mL HGB A1C (GLYCO-HGB) Reviewed date:09/23/2024 01:03:05 PM Interpretation: Performing Lab:[facility], [address] [place] [address] PH:[phone] Notes/Report: Hemoglobin A1C 5.3 4.0-6.0 % Estimated Ave Gluc 105 The ADA and AACC recommend providing the estimated average glucose result to permit better patient understanding of their HBA1c result. IRON Reviewed date:09/23/2024 01:03:05 PM Interpretation: Performing Lab:[facility], [address] [place] [address] PH:[phone] Notes/Report: Iron 35 37-145 ug/dL INSULIN Reviewed date:09/23/2024 01:03:05 PM Interpretation: Performing Lab:[facility], [address] [place] [address] PH:[phone] Notes/Report: Insulin 25.1 Reference Range Fastin.6-24.9 30 min: 20-112 60 min: 29-88 90 min: 26-84 120 min: 22-79 LIPID PANEL Reviewed date:09/23/2024 01:03:05 PM Interpretation: Performing Lab:[facility], [address] [place] [address] PH:[phone] Notes/Report: Cholesterol 185 0-199 mg/dL Cholesterol Guidelines: <200 Desirable 200-240 Borderline >240 Undesirable Cholesterol,HDL 54 >40 mg/dL HDL Guidelines: <40 Undesirable 40-59 Borderline >59 Desirable Cholesterol,LDL 112 0-100 mg/dL LDL Guidelines: <100 Desirable 100-129 Near to/above Desirable 130-159 Borderline >159 Undesirable Direct (measured) LDL and calculated LDL are not interchangeable tests. Chol/HDL Ratio 3.4 <5.0 Triglycerides 93 <150 mg/dL Triglyceride Guidelines: <150 Desirable 150-199 Borderline 200-499 High >499 Very high Based on AHA Guidelines for fasting triglyceride, January 2012. Cholesterol,VLDL 19 1-30 mg/dL TSH Reviewed date:09/22/2024 03:41:41 PM Interpretation: Performing Lab:[facility], [address] , [place] [address] PH:[phone] Notes/Report: Thyroid Stim. Horm. 1.93 0.27-4.20 uIU/mL XR KNEE LEFT (1-2 VIEWS) Reviewed date:08/09/2024 03:34:05 PM Interpretation: Performing Lab: Notes/Report: EXAMINATION: Performed at: [address] [place] [id number] Performed at: XR hip RT min 2V Reviewed date:07/28/2024 09:37:42 PM Interpretation: Performing Lab: Notes/Report: Source Facility: [place] [address] XRay Report Signed Patient: BLANKA MACKENZIE MR#: [id number] : 2000 Acct:[id number] Age/Sex: 23 / F ADM Date: 07/28/24 Loc: RAD Attending Dr: Louise Lemos M.D. Ordering Physician: Louise Lemos M.D. Date of Service: 07/28/24 Procedure(s): XR hip RT min 2V Accession Number(s): [id number] cc: Louise Lemos M.D. [place] [address] Patient Name: BLANKA MACKENZIE MRN: [id number] date: 2000 Sex: F Assigned Patient Location: [facility] Current Patient Location: [facility] Accession/Order Number: [id number] Exam Date: 07/28/2024 21:27 Report Date: 07/28/2024 21:29 At the request of: LOUISE LEMOS MD Procedure: XR hip RT min 2V 2 views right plain film COMPARISON: None HISTORY: Right hip pain ACUTE FINDINGS: None DEGENERATIVE CHANGE: Unremarkable SOFT TISSUE FINDINGS: Unremarkable JOINT EFFUSION: None POSTOP CHANGES: None BONY MINERALIZATION: Adequate XR/XR hip RT min 2V IMPRESSION: Unremarkable exam Impression dictated by: Juancarlos Mendoza M.D.07/28/2024 9:29 PM Dictation Location: [place] [address] Electronically authenticated by: [id number] Y Date: 07/28/2024 21:29 Dictated By: Juancarlos Mendoza D.O. Signed By: 07/28/242131 DD/ 28 TD/TT: Race Relations Professor: [place] [address] XRay Report Signed Patient: BLANKA MACKENZIE MR#: [id number] : 2000 Acct:[id number] Age/Sex: 23 / F ADM Date: 07/28/24 Loc: RAD Attending Dr: Kj Lemos M.D. Ordering Physician: Louise Lemos M.D. Date of Service: 07/28/24 Procedure(s): XR hip RT min 2V Accession Number(s): [id number] cc: Louise Lemos M.D. [place] [address] Patient Name: BLANKA MACKENZIE MRN: [id number] date: 2000 Sex: F Assigned Patient Location: [facility] Current Patient Location: [facility] Accession/Order Number: [id number] Exam Date: 07/28/2024 21:27 Report Date: 07/28/2024 21:29 At the request of: LOUISE LEMOS MD Procedure: XR hip RT min 2V 2 views right plain film COMPARISON: None HISTORY: Right hip pain ACUTE FINDINGS: None DEGENERATIVE CHANGE: Unremarkable SOFT TISSUE FINDINGS : Unremarkable JOINT EFFUSION: None POSTOP CHANGES: None BONY MINERALIZATION: Adequate XR/XR hip RT min 2V IMPRESSION: Unremarkable exam Impression dictated by: Juancarlos Mendoza M.D.07/28/2024 9:29 PM Dictation Location: [place] [address] Electronically authenticated by: [id number] Y Date: 07/28/2024 21:29 Dictated By: Juancarlos Mendoza D.O. Signed By: 07/28/242131 DD/ 28 TD/TT: Race Relations Professor: XR lumbar spine 2-3V Reviewed date:07/28/2024 09:37:42 PM Interpretation: Performing Lab: Notes/Report: Source Facility: [place] [address] [place] [address] XRay Report Signed Patient: BLANKA MACKENZIE MR#: [id number] : 2000 Acct:[id number] Age/Sex: 23 / F ADM Date: 07/28/24 Loc: RAD Attending Dr: Louise Lemos M.D. Ordering Physician: Louise Lemos M.D. Date of Service: 07/28/24 Procedure(s): XR lumbar spine 2-3V Accession Number(s): [id number] cc: Louise Lemos M.D. [place] [address] Patient Name: BLANKA MACKENZIE MRN: [id number] date: 2000 Sex: F Assigned Patient Location: RAD Current Patient Location: [facility] Accession/Order Number: [id number] Exam Date: 07/28/2024 21:25 Report Date: 07/28/2024 21:26 At the request of: LOUISE LEMOS MD Procedure: XR lumbar spine 2-3V 2 views Lumbar Spine HISTORY: Right lower back pain COMPARISON: None POSTSURGICAL CHANGES: None BONY ALIGNMENT: Adequate HYPERMOBILITY:No bending imaging. LISTHESIS:None FRACTURE: None DEGENERATIVE CHANGES: Mild L5-S1 disc space narrowing SOFT TISSUES: Unremarkable BONY MINERALIZATION:Adequate XR/XR lumbar spine 2-3V IMPRESSION: Mild L5-S1 spondylosis Impression dictated by: Juancarlos Mendoza M.D.07/28/2024 9:26 PM Dictation Location: [place] [address] Electronically authenticated by: [id number] Y Date: 07/28/2024 21:26 Dictated By: Juancarlos Mendoza D.O. Signed By: 07/28/242128 DD/ 25 TD/TT: Race Relations Professor: [place] [address] XRay Report Signed Patient: BLANKA MACKENZIE MR#: [id number] : 2000 Acct:[id number] Age/Sex: 23 / F ADM Date: 07/28/24 Loc: RAD Attending Dr: Kj Lemos M.D. Ordering Physician: Louise Lemos M.D. Date of Service: 07/28/24 Procedure(s): XR lumbar spine 2-3V Accession Number(s): [id number] cc: Louise Lemos M.D. [address] [address] Patient Name: BLANKA MACKENZIE MRN: [id number] date: 2000 Sex: F Assigned Patient Location: RAD Current Patient Location: RAD Accession/Order Number: [id number] Exam Date: 07/28/2024 21:25 Report Date: 07/28/2024 21:26 At the request of: LOUISE LEMOS MD Procedure: XR lumbar spine 2-3V 2 views Lumbar Spine HISTORY: Right lower back pain COMPARISON: None POSTSURGICAL CHANGES : None BONY ALIGNMENT: Adequate HYPERMOBILITY:No bending imaging. LISTHESIS:None FRACTURE: None DEGENERATIVE CHANGES : Mild L5-S1 disc space narrowing SOFT TISSUES: Unremarkable BONY MINERALIZATION:Adequat e XR/XR lumbar spine 2-3V IMPRESSION: Mild L5- S1 spondylosis Impression dictated by: Juancarlos Mendoza M.D.07/28/2024 9:26 PM Dictation Location: [place] [address] Electronically authenticated by: [id number] Y Date: 07/28/2024 21:26 Dictated By: Juancarlos Mendoza D.O. Signed By: 07/28/242128 DD/ 25 TD/TT: Race Relations Professor: JEN Reviewed date:07/20/2024 08:45:44 PM Interpretation: Performing Lab:[address] [place] [address] PH:[phone] Notes/Report: Color Yellow YEL Clarity, Urine Clear CLEAR Glucose,Semi-qnt,Ur TRACE NEG mg/dL Bilirubin, SemiQt,Ur NEGATIVE NEG Ketones, Urine NEGATIVE NEG mg/dL Spec. [place],Ur 1.025 1.010-1.020 Blood, Urine 3+ NEG PH,Ur 6.0 5.0-9.0 Protein, Semi-qnt,Ur 1+ NEG mg/dL Urobilinogen,Ur Normal 0.0-1.0 EU/dL Nitrite,Ur POSITIVE NEG Leukocyte Esterase SMALL NEG Urinalysis Microscopic Reviewed date:07/20/2024 08:45:44 PM Interpretation: Performing Lab:[address] [place] [address] PH:[phone] Notes/Report: Urine WBC's 20 TO 50 0-5 /HPF Urine RBC's 2 TO 5 0-2 /HPF Epithelial cells 0 TO 2 0-25 /HPF Bacteria 2+ NONE Mucus Strands TRACE NONE Other Observations [facility] Reviewed date:03/19/2024 08:06:35 PM Interpretation: Performing Lab:[address] [place] [address] PH:[phone] Notes/Report: HCG, Quant 2.8 0-7 mIU/mL Non-preg premeno <=5 Postmeno <=8 Male <=3 If HCG results do not concur with clinical observations, additional testing to confirm results is recommended. Urine Culture, Routine Reviewed date:03/05/2024 12:25:48 PM Interpretation: Performing Lab: Notes/Report: [facility] , Urine Culture, Routine See Below For Report Urine Culture, Routine Urine Culture, Routine Culture shows les s than 10,000 colony forming units of bacteria per Urine Culture, Routine Urine Culture, Routine milliliter of uri ne. This colony count is not generally considered Urine Culture, Routine Urine Culture, Routine to be clinically significant. Urine Culture, Routine Urine Culture, Routine Performed at: [facility] Urine Culture, Routine Urine Culture, Routine [address] [place] [id number] Urine Culture, Routine Urine Culture, Routine [employer]: Ze Mensah PhD, Phone: [phone] Urine Culture, Routine Performing Lab: see note - [facility] SEE REPORT - Inside Wirer Id information not found for OBX-specific event producer legend Reason For Referral No Information Medications Medication SIG (Take, Route, Frequency, Duration) Notes Start Date End Date Status Vienva 0.1-20 MG-MCG TAKE 1 TABLET BY [facility] EVERY DAY FOR 28 DAYS for 28 Active Wegovy 0.25 MG/0.5ML 0.25 mg Subcutaneou s weely for 30 days 09/17/2024 Active Voltaren 1 % Apply to affected ar eas Externally BID 08/27/2024 Active hydrOXYzine HCl 25 MG 1 tablet as needed Orally qid for 10 days 08/12/2024 Active Gabapentin 300 MG TAKE 1 CAPSULE BY [facility] THREE TIMES A DAY for 30 [...] Question Answer Notes Patient is a nonsmoker Alcohol Screen (Audit-C) Question Answer Notes Did you have a drink containing alcohol in the p ast year? No Points 0 Interpretation Negative AUDIT-C (Standard) Question Answer Notes Did you have a drink containing alcohol in the p ast year? No Points 0 Interpretation Negative Problems Problem Type SNOMED Code ICD Code Onset Dates Problem Status W/U Status Risk Notes Problem 12280484 Vitamin D deficiency, unspecified (E55.9) Active confirmed Problem 845620095 Attention-defici t hyperactivity disorder, unspecified type (F90.9) Active confirmed Problem 291050796 Insomnia, unspecified (G47.00) Active confirmed Problem 90102829 Other chronic pain (G89.29) Active confirmed Problem 0540733900 Fatty (change of ) liver, not elsewhere classified (K76.0) Active confirmed Problem 514267515 Cervical disc disorder, unspecified, unspecified cervical region (M50.90) Active confirmed Problem 167035655 Other intervertebral disc displacement, lumbar region (M51.26) Active confirmed Problem Chronic cystitis (46032678) Other chronic cystitis without hematuria (N30.20) Active confirmed Problem Urge incontinence of urine (19876776) Urge incontinence (N39.41) Active confirmed Problem Obesity (410288813) Obesity (E66.9) Active confirmed Problem Displacement of lumbar intervertebral disc without myelopathy (21871181) Bulging lumbar disc (M51.26) Active confirmed Problem Dysmenorrhea (789112663) Dysmenorrhea (N94.6) Active confirmed Problem Well adult (389224112) Well adult (Z00.00) Active confirmed Problem Arthralgia of the pelvic region and thigh (940200667) Right hip pain (M25.551) Active confirmed Problem Degenerative disc disease (82128239) DDD (degenerative disc disease), lumbar (M51.36) Active confirmed Problem Piriformis syndrome (955012080) Piriformis syndrome (G57.00) Active confirmed Problem Ankle instability (172677) 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) Active confirmed Problem Inflammation of right sacroiliac joint (6401365607) Inflammation of right sacroiliac joint (M46.1) Active confirmed Problem Wound care (regime/therapy) (086735735) Suture check (Z48.89) Active confirmed Problem Traumatic AND/OR non-traumatic injury (693435036) Suture of skin wound (T14.8XXA) Active confirmed Problem Metabolic syndrome (771770182) Metabolic syndrome (E88.810) Active confirmed Vital Signs Blood pressure diastolic 84 mm Hg 11/18/2024 Height 68 in 11/18/2024 Blood pressure systolic 128 mm Hg 11/18/2024 Weight 224.2 lbs 11/18/2024 BMI 34.09 kg/m2 11/18/2024 Encounters Encounter Location Date Provider Diagnosis [facility] [address] [place] [address] 09/23/2024 [facility] [address] [place] [address] 09/25/2024 [facility] [address] [place] [address] 09/25/2024 Tere Lemos [facility] [address] [place] [address] 11/05/[address] [facility] [address] [place] [address] 12/02/2024 Tere Lemos Low back pain at multiple sites M54.50 [facility] [address] [place] [address] 08/11/[address] [facility] [address] [place] [address] 08/12/2024 [facility] [address] [place] [address] 08/17/2024 [facility] [facility] [address] [place] [address] 08/27/[address] [facility] [address] [place] [address] 09/22/[address] [facility] [address] [place] [address] 09/23/[address] [facility] [address] [place] [address] 07/28/2024 Tere Hoy Right hip pain M25.5 51 and Bulging lumbar disc M51.26 [facility] [address] [place] [address] 07/28/[address] [facility] [address] [place] [address] 08/03/[address] [facility] [address] [place] [address] 08/06/2024 Tere Hoy Knee pain, left M25.562 [facility] [address] [place] [address] 08/09/[address] [facility] [address] [place] [address] 08/10/2024 Tere Hoy Left ankle pain M25.572 and Left foot pain M79.672 [facility] [address] [place] [address] 06/04/2024 Tere Hoy Urinary tract infection N39.0 [facility] [address] [place] [address] 06/05/[address] [facility] [address] [place] [address] 07/20/2024 Tere Hoy [facility] [address] [place] [address] 07/21/[address] [facility] [address] [place] [address] 07/21/[address] [facility] [address] [place]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
== END 2024-12-02 16:18 | disposition home or self-care (01) ==
PROVIDERS: PCP Family Medicine; Visit Provider Family Medicine
DX: M54.50 Low back pain, unspecified (principal)
CPT/HCPCS: 72100; 72202

== ENCOUNTER 2025-01-15 06:40 | Outpatient (OUT) | payer OTHER, SELFPAY ==
--- OUTSIDE RECORDS SUMMARY | 2010-06-10 17:55 | XMS_ITS | Encounter Summary ---
Author Organization [facility] Address [address], [address] [place] [address] Care Team Providers Care Goal Umpire Name Role Phone Unavailable Primary Care Provider Unavailabl e Encounter Details Date Type Department Care Team (Late st Contact Info) Description 06/10/2010 4:55 PM EST Hospital Encounter [place] [id number] Jesús Mccullough MD [address] [place] [address] Social History Tobacco Use Types Packs/Day Years Used Date Smoking Tobacco: Passive Smo ke Exposure - Never Smoker Smokeless Tobacco: Never Alcohol Use Standard Drinks/Week Comments No 0 (1 standard drink = 0.6 oz pur e alcohol) Comments No Sex and Gender Information Value Date Recorded Sex Assigned at Not on file Legal Sex Female 5:42 PM EST Gender Identity Not on file Sexual Orientation Not on file COVID-19 Exposure Response Date Recorded In the last 10 days, have yo u been in contact with someone who was confirmed or suspected to have Coronavirus/COVID-19? No / Unsure 10/07/2021 3:09 PM EDT documented as of this encounter Plan of Treatment Not on file documented as of this encounter Visit Diagnoses Not on filedocumented in this encounter
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
--- OUTSIDE RECORDS SUMMARY | 2025-01-15 06:41 | XMS_ITS | Encounter Summary ---
Author Organization [facility] Address [address], [address] [place] [address] Care Team Providers Care Brass Instrument Repair Technician Name Role Phone Jesús Mccullough MD Primary Care Provider [phone] Encounter Details Date Type Department Care Team (Late st Contact Info) Description 06/07/2021 Transcribe Orders [facility] [address] [id number] Jesús Mccullough MD [address] [phone] Social History Tobacco Use Types Packs/Day Years [...] on file Sexual Orientation Not on file documented as of this encounter Plan of Treatment Not on file documented as of this encounter Visit Diagnoses Not on filedocumented in this encounter Care Teams Brass Instrument Repair Technician Relationship Specialty Start Date End Date Jesús Mccullough MD [address] [place] [address] PCP - General Family Medicine 03/18/20 documented as of this encounter
--- OUTSIDE RECORDS SUMMARY | 2025-01-15 06:42 | XMS_ITS | Encounter Summary ---
Author Organization [facility] Address [address], [address] [place] [address] Care Team Providers Care Administrator Name Role Phone Jesús Mccullough MD Primary Care Provider [phone] Reason for Referral * Imaging (Routine) - Closed Specialty Diagnoses / Procedures Referred By Contac t Referred To Contact Radiology Diagnoses Hematuria, unspecified type Procedures US URINARY BLADDER LIMITED Jesús Mccullough MD [address] [place] [address] Phone: tel:[phone] fax: Referral ID Status Reason Start Date Expiration Date Visits Re quested Visits Authorized [id number] Closed 10/31/2021 10/31/2022 1 1 * Imaging (Routine) - Closed Specialty Diagnoses / Procedures Referred By Contac t Referred To Contact Radiology Diagnoses Hematuria, unspecified type Procedures US RENAL COMPLETE Jesús Mccullough MD [address] [place] [address] Phone: tel:[phone] fax: Referral ID Status Reason Start Date Expiration Date Visits Re quested Visits Authorized [id number] Closed 10/31/2021 10/31/2022 1 1 Encounter Details Date Type Department Care Team (Latest Contact Info) Description 10/31/2021 Transcribe Orders [facility] [address] [id number] Jesús Mccullough MD [address] [place] [address] Hematuria, unspecified type (Primary Dx) Social History Tobacco Use Types Packs/Day Years [...] as of this encounter Plan of Treatment Scheduled Orders Name Type Priority Associated Diagnoses Orde r Schedule US RENAL COMPLETE Imaging Routine Hematuria, unspecified type Expected: 10/31/2021, Expires: 10/31/2022 URINARY BLADDER LIMITED Imaging Routine Hematuria, unspecified type Expected: 10/31/2021, Expires: 10/31/2022 documented as of this encounter Visit Diagnoses Diagnosis Hematuria, unspecified type- Primary documented in this encounter Care Teams Administrator Relationship Specialty Start Date End Date Jesús Mccullough MD [address] [place] [address] PCP - General Family Medicine 03/18/20 documented as of this encounter
--- OUTSIDE RECORDS SUMMARY | 2025-01-15 06:42 | XMS_ITS | Clinical Summary ---
Author Organization [facility] Address [address] [place] [address] Care Team Providers Care Lithographic Photographer Apprentice Name Role Phone Jesús Mccullough MD Primary Care Provider [phone] Encounters Date Type Department Care Team Description 01/07/2025 10:20 AM EDT Office Visit [facility] [address] [place] [address] Ward Schumacher MD Neck pain, chronic (Primary Dx); Chronic right-sided low back pain without sciatica 12/16/2024 Telephone [facility] [address] [place] [address] [place] [address] Leana Rangel MA from Last 3 Months Social History Tobacco Use Types Packs/Day Years Used Date Smoking Tobacco: Never Assessed [place] Safety & Environment Answer Date Rec orded [...] not to disclose 2024 10:21 AM EDT Last Filed Vital Signs Vital Sign Reading Time Taken Comments Blood Pressure 134/80 01/07/2025 10:23 AM EDT Pulse 64 01/07/2025 10:23 AM EDT Temperature - - Respiratory Rate 18 01/07/2025 10:23 AM EDT Oxygen Saturation 98% 01/07/2025 10:23 AM EDT Inhaled Oxygen Concentration - - Weight - - Height - - Body Mass Index - - Plan of Treatment Upcoming Encounters Date Type Department Care Team (Nathanael matos Contact Info) Description 02/04/2025 10:40 AM EDT Follow-Up [facility] [address] [place] [address] Ward Schumacher MD [address] [place] [address] Health Maintenance Due Date Last Done Comments Depression Screening 2014 HPV Vaccines (1 - 3-dose series) 2017 Meningococcal B Vaccine (1 of 2 - Standard) 2018 Pap Smear 07/30/2023 COVID-19 Vaccine ( season) 2024 Influenza Vaccine (#1) 2024 Adult Tetanus 10/25/2029 10/26/2019, 11/19/2014 Zoster Vaccines (1 of 2) 2052 08/21/2007, 08/27 HIB Vaccines Completed 09/09/2003, 12/2002, 2002, Additional history exists Pneumococcal Vaccine: Pediatrics (0 to 5 Years) and At-Risk Patients (6 to 64 Years) Aged Out 09/09/2003, 02/04/2003, 2002, Additional history exists No longer eligible based on patient's age to complete this topic IPV Vaccines Completed 08/21/2007, 12/2002, 2002, Additional history exists Varicella Vaccines Completed 08/21/2007, 09/09/2003 Meningococcal Vaccine Completed 12/26/2018 Rotavirus Vaccines Aged Out No longer eligible based on patient's age to complete this topic Insurance [facility] MEDICAID AETNA Care Teams Lithographic Photographer Apprentice Relationship Specialty Start Date End Date Jesús Mccullough MD [address] [facility] [address] [address] PCP - General 08/13/23
--- OUTSIDE RECORDS SUMMARY | 2025-01-15 06:42 | XMS_ITS | Encounter Summary ---
Author Organization [facility] Address [address], [address] [place] [address] Care Team Providers Care Bed Setter Name Role Phone Jesús Mccullough MD Primary Care Provider [phone] Reason for Referral * Imaging (Routine) - Closed Specialty Diagnoses / Procedures Referred By Contac t Referred To Contact Radiology Diagnoses Low back pain, unspecified back pain laterality, unspecified chronicity, unspecified whether sciatica present Procedures MRI LUMBAR SPINE WO CONTRAST Jesús Mccullough MD [address] [place] [address] Phone: tel: fax: Referral ID Status Reason Start Date Expiration Date Visits Re quested Visits Authorized [id number] Closed 06/08/2021 06/07/2022 1 1 Encounter Details Date Type Department Care Team (Latest Contact Info) Description 06/07/2021 Transcribe Orders [facility] [address] [phone] Jesús Mccullough MD [address] [place] [address] Low back pain, unspecified back pain laterality, unspecified chronicity, unspecified whether sciatica present (Primary Dx) Social History Tobacco Use Types [...] on file documented as of this encounter Results * MRI LUMBAR SPINE WO CONTRAST (06/13/2021 1:30 PM EST) Anatomical Region Laterality Modality T-spine, L-spine, Pelvis Magneti c Resonance 06/13/2021 1:30 PM EST Impressions 06/13/2021 5:08 PM EST Moderate central disc extrusion L4-5. Moderate narrowing of the neural foramina bilaterally. Small disc protrusion L5-S1 and moderate narrowing of the neural foramina bilaterally. Narrative 06/13/2021 5:08 PM EST EXAMINATION: MRI OF THE LUMBAR SPINE WITHOUT CONTRAST, 06/13/2021 12:57 pm TECHNIQUE: Multiplanar multisequence MRI of the lumbar spine was performed without the administration of intravenous contrast. COMPARISON: Lumbar spine radiograph May 04, 2021 HISTORY: ORDERING SYSTEM PROVIDED HISTORY: Low back pain, unspecified back pain laterality, unspecified chronicity, unspecified whether sciatica present TECHNOLOGIST PROVIDED HISTORY: Is the patient ?->No FINDINGS: BONES/ALIGNMENT: There is normal alignment of the spine. The vertebral body heights are maintained. The bone marrow signal appears unremarkable. SPINAL CORD: The conus terminates normally. SOFT TISSUES: No paraspinal mass identified. L1-L2: There is no significant disc herniation, spinal canal stenosis or neural foraminal narrowing. L2-L3: There is no significant disc herniation, spinal canal stenosis or neural foraminal narrowing. L3-L4: There is no significant disc herniation, spinal canal stenosis. Hypertrophic facet disease and mild bilateral neural foraminal narrowing. L4-L5: Moderate central posterior disc extrusion inferiorly. Hypertrophic facet disease and moderate narrowing of the neural foramina bilaterally. Central thecal sac measures 9 mm. L5-S1: Small broad-based posterior disc protrusion and moderate narrowing of the neural foramina bilaterally. Central thecal sac patent. Procedure Note Brad Damon MD - 06/13/2021 EXAMINATION: MRI OF THE LUMBAR SPINE WITHOUT CONTRAST, 06/13/2021 12:57 pm TECHNIQUE: Multiplanar multisequence MRI of the lumbar spine was performed withoutthe administration of intravenous contrast. COMPARISON: Lumbar spine radiograph May 04, 2021 HISTORY: ORDERING SYSTEM PROVIDED HISTORY: Low back pain, unspecified back pain laterality, unspecified chronicity, unspecified whether sciatica present TECHNOLOGIST PROVIDED HISTORY: Is the patient ?->No FINDINGS: BONES/ALIGNMENT: There is normal alignment of the spine. The vertebralbody heights are maintained. The bone marrow signal appears unremarkable. SPINAL CORD: The conus terminates normally. SOFT TISSUES: No paraspinal mass identified. L1-L2: There is no significant disc herniation, spinal canal stenosis or neural foraminal narrowing. L2-L3: There is no significant disc herniation, spinal canal stenosis or neural foraminal narrowing. L3-L4: There is no significant disc herniation, spinal canal stenosis. Hypertrophic facet disease and mild bilateral neural foraminalnarrowing. L4-L5: Moderate central posterior disc extrusion inferiorly.Hypertrophic facet disease and moderate narrowing of the neural foramina bilaterally. Central thecal sac measures 9 mm. L5-S1: Small broad-based posterior disc protrusion and moderate narrowingof the neural foramina bilaterally. Central thecal sac patent. IMPRESSION: Moderate central disc extrusion L4-5. Moderate narrowing of the neural foramina bilaterally. Small disc protrusion L5-S1 and moderate narrowing of the neuralforamina bilaterally. Jesús Mccullough MD IMG MRI ORDERABLES Final Result documented in this encounter Visit Diagnoses Diagnosis Low back pain, unspecified back pain laterality, unspecified chronicity, unspecified whether sciatica present- Primary Low back pain, unspecified back pain laterality, unspecified chronicity, unspecified whether sciatica present documented in this encounter Care Teams Bed Setter Relationship Specialty Start Date End Date Jesús Mccullough MD [address] [place] [address] PCP - General Family Medicine 03/18/20 documented as of this encounter
--- OUTSIDE RECORDS SUMMARY | 2025-01-15 06:42 | XMS_ITS | Encounter Summary ---
Author Organization [facility] Address [address], [address] [place] [address] Care Team Providers Care Aluminum Welder Name Role Phone Jesús Mccullough MD Primary Care Provider [phone] Reason for Referral * Imaging (Routine) - Closed Specialty Diagnoses / Procedures Referred By Contac t Referred To Contact Radiology Diagnoses Dysuria Procedures US RENAL COMPLETE Jesús Mccullough MD [address] [place] [address] Phone: tel:[phone] fax: Referral ID Status Reason Start Date Expiration Date Visits Re quested Visits Authorized [id number] Closed 09/04/2023 09/03/2024 1 1 Encounter Details Date Type Department Care Team (Latest Contact Info) Description 09/04/2023 Transcribe Orders [facility] [address] [phone] Jesús Mccullough MD [address] [place] [address] Dysuria (Primary Dx) Social History Tobacco Use Types [...] documented as of this encounter Results * US RENAL COMPLETE (09/05/2023 3:48 PM EDT) Anatomical Region Laterality Modality Abdomen Ultrasound 09/05/2023 4:17 PM EDT Impressions 09/05/2023 4:18 PM EDT Unremarkable ultrasound of the kidneys and urinary bladder. Narrative 09/05/2023 4:18 PM EDT EXAMINATION: RETROPERITONEAL ULTRASOUND OF THE KIDNEYS AND URINARY BLADDER 09/05/2023 COMPARISON: None HISTORY: ORDERING SYSTEM PROVIDED HISTORY: Dysuria FINDINGS: Kidneys: The right kidney measures 11.6 cm in length and the left kidney measures 11 cm in length. Kidneys demonstrate normal cortical echogenicity. No evidence of hydronephrosis or intrarenal stones. Bladder: Unremarkable appearance of the bladder. No significant post void residual. Procedure Note Nirmal Haskins DO - 09/05/2023 EXAMINATION: RETROPERITONEAL ULTRASOUND OF THE KIDNEYS AND URINARY BLADDER 09/05/2023 COMPARISON: None HISTORY: ORDERING SYSTEM PROVIDED HISTORY: Dysuria FINDINGS: Kidneys: The right kidney measures 11.6 cm in length and the left kidney nudthstx27 cm in length. Kidneys demonstrate normal cortical echogenicity. No evidence of hydronephrosis or intrarenal stones. Bladder: Unremarkable appearance of the bladder. No significant post voidresidual. IMPRESSION: Unremarkable ultrasound of the kidneys and urinary bladder. us Jesús Mccullough MD IMG US ORDERABLES Final Result documented in this encounter Visit Diagnoses Diagnosis Dysuria- Primary Dysuria documented in this encounter Care Teams Aluminum Welder Relationship Specialty Start Date End Date Jesús Mccullough MD [address] [place] [address] PCP - General Family Medicine 03/18/20 documented as of this encounter
--- OUTSIDE RECORDS SUMMARY | 2025-01-15 06:42 | XMS_ITS | Encounter Summary ---
Author Organization [facility] Address [address] [facility], [address] [place] [address] Care Team Providers Care Java Lead Architect Name Role Phone Jesús Mccullough MD Primary Care Provider [phone] Reason for Referral * Imaging (Routine) - Closed Specialty Diagnoses / Procedures Referred By Contac t Referred To Contact Radiology Diagnoses Right knee pain, unspecified chronicity Swelling of joint of right knee Procedures MRI KNEE RIGHT WO CONTRAST Jesús Mccullough MD [address] [place] [address] Phone: tel: fax: Referral ID Status Reason Start Date Expiration Date Visits Re quested Visits Authorized [id number] Closed 11/29/2020 01/13/2021 1 1 Encounter Details Date Type Department Care Team (Latest Contact Info) Description 11/23/2020 Transcribe Orders [facility] Pre [facility] [address] [phone] Jesús Mccullough MD [address] [place] [address] Right knee pain, unspecified chronicity (Primary Dx); Swelling of joint of right knee Social History Tobacco Use Types Packs/Day Years [...] as of this encounter Results * MRI KNEE RIGHT WO CONTRAST (12/01/2020 11:39 AM EDT) Anatomical Region Laterality Modality Thigh, Knee, Leg Magnetic Resona nce 12/01/2020 11:4 0 AM EDT Impressions 12/01/2020 11:53 AM EDT 1. No acute ligamentous or meniscal injury. 2. Mild patellofemoral chondromalacia. 3. No sizable joint effusion. Narrative 12/01/2020 11:53 AM EDT EXAMINATION: MRI OF THE RIGHT KNEE WITHOUT CONTRAST, 12/01/2020 11:18 am TECHNIQUE: Multiplanar multisequence MRI of the right knee was performed without the administration of intravenous contrast. COMPARISON: Right knee plain radiographs from 11/23/2020. HISTORY: ORDERING SYSTEM PROVIDED HISTORY: Right knee pain, unspecified chronicity TECHNOLOGIST PROVIDED HISTORY: Is the patient ?->No 20-year-old female with right knee pain. FINDINGS: MENISCI: Both the medial and lateral menisci demonstrate normal morphology and signal characteristics. No MR evidence that meets the criteria for a tear within the medial or lateral meniscus. CRUCIATE LIGAMENTS: Anterior and posterior cruciate ligaments appear intact. EXTENSOR MECHANISM: Distal quadriceps tendon, patellar tendon, and patellar retinacula appear intact. LATERAL COLLATERAL LIGAMENT COMPLEX: Popliteus muscle/tendon, iliotibial band, lateral collateral ligament, and biceps femoris appear intact. MEDIAL COLLATERAL LIGAMENT COMPLEX: Medial collateral ligament complex appears intact. KNEE JOINT: No sizable joint effusion. Osseous alignment is normal. No acute fracture or dislocation. Grade 2 patellofemoral chondromalacia. Articular cartilage of the medial and lateral compartments appears grossly intact without focal chondral defect. BONE MARROW: Bone marrow signal intensity within the visualized osseous structures is within normal limits. SOFT TISSUES: Visualized popliteal neurovascular bundle grossly unremarkable. No sizable West's cyst. Procedure Note Seferino Rehman MD - 12/01/2020 EXAMINATION: MRI OF THE RIGHT KNEE WITHOUT CONTRAST, 12/01/2020 11:18 am TECHNIQUE: Multiplanar multisequence MRI of the right knee was performed withoutthe administration of intravenous contrast. COMPARISON: Right knee plain radiographs from 11/23/2020. HISTORY: ORDERING SYSTEM PROVIDED HISTORY: Right knee pain, unspecifiedchronicity TECHNOLOGIST PROVIDED HISTORY: Is the patient ?->No 20-year-old female with right knee pain. FINDINGS: MENISCI: Both the medial and lateral menisci demonstrate normalmorphology and signal characteristics. No MR evidence that meets the criteria fora tear within the medial or lateral meniscus. CRUCIATE LIGAMENTS: Anterior and posterior cruciate ligaments appearintact. EXTENSOR MECHANISM: Distal quadriceps tendon, patellar tendon, andpatellar retinacula appear intact. LATERAL COLLATERAL LIGAMENT COMPLEX: Popliteus muscle/tendon, iliotibial band, lateral collateral ligament, and biceps femoris appear intact. MEDIAL COLLATERAL LIGAMENT COMPLEX: Medial collateral ligament complex appears intact. KNEE JOINT: No sizable joint effusion. Osseous alignment is normal. No acute fracture or dislocation. Grade 2 patellofemoral chondromalacia. Articular cartilage of the medial and lateral compartments appearsgrossly intact without focal chondral defect. BONE MARROW: Bone marrow signal intensity within the visualized osseous structures is within normal limits. SOFT TISSUES: Visualized popliteal neurovascular bundle grosslyunremarkable. No sizable West's cyst. IMPRESSION: 1. No acute ligamentous or meniscal injury. 2. Mild patellofemoral chondromalacia. 3. No sizable joint effusion. Jesús Mccullough MD IMG MRI ORDERABLES Final Result documented in this encounter Visit Diagnoses Diagnosis Right knee pain, unspecified chronicity- Primary Swelling of joint of right knee Effusion of lower leg joint Right knee pain, unspecified chronicity Swelling of joint of right knee Effusion of lower leg joint documented in this encounter Care Teams Java Lead Architect Relationship Specialty Start Date End Date Jesús Mccullough MD [address] [place] [address] PCP - General Family Medicine 03/18/20 documented as of this encounter
--- OUTSIDE RECORDS SUMMARY | 2025-01-15 06:42 | XMS_ITS | Clinical Summary ---
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 Overview (03/05/2021): Added automatically from request for surgery [id number] Social History Tobacco Use Types Packs/Day Years Used Date Smoking Tobacco: Never Assessed Comments Unknown Sex and Gender Information Value Date Recorded Sex Assigned at Not on file Legal Sex Female 1:03 PM EST Gender Identity Not on file Sexual Orientation Not on file Plan of Treatment Health Maintenance Due Date Last Done Comments GONORRHEA SCREEN 2002 HEPATITIS C VIRUS SCREENING 2002 TETANUS 2002 HIV SCREENING DISCUSSION 2017 HPV VACCINE ADOL (1 - 3-dose series) 2017 HPV VACCINE (1 - 3-dose series) 2017 CHLAMYDIA SCREEN 2018 HEP B VACCINE (1 of 3 - 19+ 3-dose series) 2021 TDAP (ADULT) 2021 CERVICAL CANCER SCREENING DISCUSSION 07/30/2023 COVID-19 VACCINE ( - 2023-2 5 season) 2024 INFLUENZA VACCINE (#1) 2024 PNEUMOCOCCAL VACCINE SERIES Aged Out No longer eligible based on patient's age to complete this topic Insurance [employer] Generic on file
--- OUTSIDE RECORDS SUMMARY | 2025-01-15 06:42 | XMS_ITS | Encounter Summary ---
Author Organization [facility] Address [address] [facility], [address] [place] [address] Care Team Providers Care Helicopter Repairer Name Role Phone Jesús Mccullough MD Primary Care Provider [phone] Encounter Details Date Type Department Care Team (Latest Contact Info) Description 08/06/2024 Transcribe Orders [facility] Admitting [address] [phone] Jesús Mccullough MD [address] [place] [address] Left knee pain, unspecified chronicity (Primary Dx) Social History Tobacco Use Types [...] documented as of this encounter Results * XR KNEE LEFT (1-2 VIEWS) (08/06/2024 4:20 PM EDT) Anatomical Region Laterality Modality Thigh, Knee, Leg Computed Radiog marko 08/08/2024 3:40 PM EDT Impressions 08/08/2024 3:40 PM EDT No acute osseous abnormality of the left knee evident. Narrative 08/08/2024 3:40 PM EDT EXAMINATION: TWO XRAY VIEWS OF THE LEFT KNEE 08/06/2024 4:20 pm COMPARISON: None. HISTORY: ORDERING SYSTEM PROVIDED HISTORY: Left knee pain, unspecified chronicity FINDINGS: There is normal alignment of the left knee. There is no fracture or dislocation identified. Joint spaces are preserved. There is no joint effusion present. No chondrocalcinosis or intra-articular loose bodies are identified. Procedure Note Zachery Luu MD - 08/08/2024 EXAMINATION: TWO XRAY VIEWS OF THE LEFT KNEE 08/06/2024 4:20 pm COMPARISON: None. HISTORY: ORDERING SYSTEM PROVIDED HISTORY: Left knee pain, unspecified chronicity FINDINGS: There is normal alignment of the left knee. There is no fracture or dislocation identified. Joint spaces are preserved. There is no joint effusion present. No chondrocalcinosis or intra-articular loose bodiesare identified. IMPRESSION: No acute osseous abnormality of the left knee evident. us Jesús Mccullough MD IMG DIAGNOSTIC IMAGING ORDERABL ES Final Result documented in this encounter Visit Diagnoses Diagnosis Left knee pain, unspecified chronicity Left knee pain, unspecified chronicity- Primary documented in this encounter Care Teams Helicopter Repairer Relationship Specialty Start Date End Date Jesús Mccullough MD [address] [place] [address] PCP - General Family Medicine 03/18/20 documented as of this encounter
--- OUTSIDE RECORDS SUMMARY | 2025-01-15 06:42 | XMS_ITS | Clinical Summary ---
Author Organization [facility] Address [address], [address] [place] [address] Care Team Providers Care Senior Asp Net Developer Name Role Phone Jesús Mccullough MD Primary Care Provider [phone] Allergies Active Allergy Reactions Criticality Noted Date Comments Topiramate Swelling 06/27/2015 Eye drops; eyes swollen and red Medications No known medications Active Problems Problem Noted Date Diagnosed Date Bilateral otitis media with effusion 06/30/2015 OME (otitis media with effusion) 12/03/2013 Social History Tobacco Use Types Packs/Day Years Used Date Smoking Tobacco: Passive Smo ke Exposure - Never Smoker Smokeless Tobacco: Never Tobacco Cessation:Counseling Given: No Alcohol Use Standard Drinks/Week Comments No 0 (1 standard drink = 0.6 oz pur e alcohol) Comments No Sex and Gender Information Value Date Recorded Sex Assigned at Not on file Legal Sex Female 5:42 PM EST Gender Identity Not on file Sexual Orientation Not on file Last Filed Vital Signs Vital Sign Reading Time Taken Comments Blood Pressure 114/75 10/11/2021 11:04 AM EDT Pulse 87 10/11/2021 11:04 AM EDT Temperature 36.3 C (97.3 F) 10/11/2021 11:04 AM EDT Respiratory Rate 16 10/11/2021 11:04 AM EDT Oxygen Saturation 100% 10/07/2021 3:08 PM EDT Inhaled Oxygen Concentration - - Weight 91.6 kg (202 lb) 10/11/2021 11:04 AM EDT Height 172.7 cm (5' 8 ) 10/11/2021 11:04 AM EDT Body Mass Index 30.71 10/11/2021 11:04 AM EDT Plan of Treatment Health Maintenance Due Date Last Done Comments Depression Screen 2014 HPV vaccine (1 - 3-dose series) 2017 Chlamydia/GC screen 2018 Meningococcal B vaccine (1 of 2 - Standard) 2018 Pap smear 07/30/2023 Flu vaccine (#1) 11/27/2024 COVID-19 Vaccine (1 - season) 2024 DTaP/Tdap/Td vaccine (8 - Td or Tdap) 10/25/2029 10/26/2019, 11/19/2014, 08/21/2007, Additional history exists Hepatitis B vaccine Completed 09/09/2003, 2002, 2002 Hib vaccine Completed 09/09/2003, 12/2002, 2002, Additional history exists Pneumococcal 0-49 years Vaccine Aged Out 09/09/2003, 02/04/2003, 2002, Additional history exists No longer eligible based on patient's age to complete this topic Measles,Mumps,Rubella (MMR) vaccine Discontinued 08/21/2007, 09/09/2003 Polio vaccine Completed 08/21/2007, 12/2002, 2002, Additional history exists Varicella vaccine Completed 08/21/2007, 09/09/2003 Meningococcal (ACWY) vaccine Completed 12/26/2018 HIV screen Completed 10/16/2021 Hepatitis C screen Completed 10/16/2021 Hepatitis A vaccine Aged Out No longe r eligible based on patient's age to complete this topic Procedures Procedure Name Priority Date/Time Associated Diagnosis Comments HIV SCREEN Routine 10/16/2021 2:02 PM EDT HEPATITIS C ANTIBODY Routine 10/16/2021 2:02 PM EDT from Last 3 Months or Most Recently Relevant to Health Maintenance Results * Hepatitis C Antibody (10/16/2021 2:02 PM EDT) Hepatitis C Ab NONREACTIVE NONREACTIVE 10/17/19 2:02 PM EDT [employer] Comment: The hepatitis C procedure used in our laboratory is a Chemiluminescent test specific for three recombinant HCV antigens. A negative anti-HCV result indicates that the antibodies to hepatitis C virus are not present at this time. Individuals with reactive anti-HCV should be considered infected and infectious until proven otherwise. Confirmation of all equivocal or reactive results is recommended by ordering HCV RNA by PCR. 10/16/2021 2:02 PM EDT 10/16/2021 2:03 PM EDT us Kevin Mendosa MD IMMUNOLOGY ORDERABLES Final Res ult Performing Organization Address [facility] Co de Phone Number [facility] [address] [place] [address], [facility] [phone] [address], [facility] [phone] * HIV Screen (10/16/2021 2:02 PM EDT) HIV Ag/Ab NONREACTIVE NONREACTIVE 10/16/2021 2:02 PM EDT [employer] Comment: No laboratory evidence of HIV infection. If acute HIV infection is suspected, consider testing for HIV-1 RNA. 10/16/2021 2:02 PM EDT 10/16/2021 2:03 PM EDT us Kevin Mendosa MD IMMUNOLOGY ORDERABLES Final Res ult Performing Organization Address [facility] Co de Phone Number [facility] [address] [place] [address], [facility] [phone] [employer] [address] [place] [address], [facility] [phone] from Last 3 Months or Most Recently Relevant to Health Maintenance Insurance ALLIED [employer] [facility] ALL[facility] [employer] SYSTEM ALLIED B[employer] Care Teams Senior Asp Net Developer Relationship Specialty Start Date End Date Jesús Mccullough MD [address] [place] [address] PCP - General Family Medicine 03/18/20
--- OUTSIDE RECORDS SUMMARY | 2025-01-15 06:42 | XMS_ITS | Encounter Summary ---
Author Organization [facility] Address [address] [facility] [facility], [address] [place] [address] Care Team Providers Care Eating Disorder Specialist Name Role Phone Jesús Mccullough MD Primary Care Provider [phone] Encounter Details Date Type Department Care Team (Late st Contact Info) Description 07/01/2015 Post-op Telephone [facility] General Surgery [address] [place], [place] [id number] Korina Bass RN Social History Tobacco Use Types Packs/Day Years Used Date Smoking Tobacco: Passive Smo ke Exposure - Never Smoker Alcohol Use Standard Drinks/Week Comments No 0 [...] on filedocumented in this encounter Care Teams Eating Disorder Specialist Relationship Specialty Start Date End Date Jesús Mccullough MD [address] [place] [address] PCP - General Family Medicine 03/18/20 documented as of this encounter
--- OUTSIDE RECORDS SUMMARY | 2025-01-15 06:42 | XMS_ITS | Encounter Summary ---
Author Organization [facility] Address [address], [address] [place] [address] Care Team Providers Care Business Process Lead Name Role Phone Jesús Mccullough MD Primary Care Provider [phone] Encounter Details Date Type Department Care Team (Late st Contact Info) Description 06/27/2015 PAT Telephone [facility] PRE ADMIT [address] [place], [place] [id number] Radha Ya, RN Social History Tobacco Use Types Packs/Day [...] on file documented as of this encounter Last Filed Vital Signs Vital Sign Reading Time Taken Comments Blood Pressure - - Pulse - - Temperature - - Respiratory Rate - - Oxygen Saturation - - Inhaled Oxygen Concentration - - Weight 92.5 kg (204 lb) 06/27/2015 3:38 PM EST Height 168.9 cm (5' 6.5 ) 06/27/2015 3:38 PM EST Body Mass Index 32.43 06/27/2015 3:38 PM EST Body Mass Index Percentile 98.75% 06/27/2015 3:3 8 PM EST Growth Chart: CDC (Girls, 2- 20 Years) documented in this encounter Progress Notes * Radha Ya, RN - 06/27/2015 2:31 PM EST PAT Phone call attempted. No answer. Message left on machine to return PAT phone call for surgery instructions and arrival time. documented in this encounter Plan of Treatment Not on file documented as of this encounter Visit Diagnoses Not on filedocumented in this encounter Care Teams Business Process Lead Relationship Specialty Start Date End Date Jesús Mccullough MD [address] [place] [address] PCP - General Family Medicine 03/18/20 documented as of this encounter
--- OUTSIDE RECORDS SUMMARY | 2025-01-15 06:42 | XMS_ITS | Clinical Summary ---
Author Organization [employer] Address [facility] [id number] [place] [address] Care Team Providers Care Assurance Manager Name Role Phone Jesús Mccullough MD Primary Care Provider [phone] Allergies No known active allergies Medications nitrofurantoin, macrocrystal-mo nohydrate, (MACROBID) 100 mg capsule TAKE 1 CAPSULE BY MOUTH TWICE A DAY X 7 DAYS 06/23/2021 Active NON FORMULARY cbd 200 mg Activ e Active Problems No known active problems Encounters Date Type Department Care Team Description 12/02/2024 4:35 PM EDT Ancillary Procedure [facility] [address] [place] [phone] Pain 12/02/2024 4:30 PM EDT Ancillary Procedure [facility] [address] [place] [phone] Pain from Last 3 Months Family History Medical History Relation Name Comments Diabetes Paternal Grandfather Heart disease Paternal Grandfather Parkinsonism Paternal Grandfather Relation Name Status Comments Paternal Grandfather Social History Tobacco Use Types Packs/Day Years Used Date Smoking Tobacco: Never Smokeless Tobacco: Never Alcohol Use Standard Drinks/Week Comments Never 0 (1 standard drink = 0.6 oz pur e alcohol) Childcare Answer Date Recorded Childcare Unknown 10/06/2018 Employment Answer Date Recorded Employment Unknown 10/06/2018 Purpose - Life Answer Date Recorded Purpose and direction in life Unknown Comments Unknown Sex and Gender Information Value Date Recorded Sex Assigned at Not on file Legal Sex Female 1:01 PM EDT Gender Identity Not on file Sexual Orientation Not on file Last Filed Vital Signs Vital Sign Reading Time Taken Comments Blood Pressure 115/72 06/26/2021 10:26 AM EST Pulse 86 06/26/2021 10:26 AM EST Temperature - - Respiratory Rate - - Oxygen Saturation - - Inhaled Oxygen Concentration - - Weight 77.1 kg (170 lb) 06/26/2021 10:26 AM EST Height 172.7 cm (5' 8 ) 06/26/2021 10:26 AM EST Body Mass Index 25.85 06/26/2021 10:26 AM EST Plan of Treatment Upcoming Encounters Date Type Department Care Team (Late st Contact Info) Description 01/25/2025 10:50 AM EDT Office Visit [facility] [address] [facility], [facility] [address] [place] [phone] Carli Arevalo MD [address] [facility], [facility] [address] [place] [address] Health Maintenance Due Date Last Done Comments Depression Screening 2014 Tobacco Screening 2014 Adult BMI Screening 2020 Pap Smear 07/30/2023 Influenza Vaccine 12/28/2024 DTaP,Tdap and Td Vaccines (8 - Td or Tdap) 10/25/2029 10/26/2019, 11/19/2014, 08/21/2007, Additional history exists Medical Devices Not on file Procedures Procedure Name Priority Date/Time Associated Diagnosis Comments XR SPINE LUMBAR 2 OR 3 VWS Routine 12/02/2024 4:35 PM EDT Pain XR SACROILIAC JOINTS MIN 3 VWS Routine 12/02/2024 4:30 PM EDT Pain from Last 3 Months Results * X-ray spine lumbar 2 or 3 views (12/02/2024 4:35 PM EDT) us Scanning Provider External IMG DIAGNOSTIC IMAGIN G ORDERABLES Final Result * X-ray sacroiliac joints minimum 3 views (12/02/2024 4:30 PM EDT) us Scanning Provider External IMG DIAGNOSTIC IMAGIN G ORDERABLES Final Result from Last 3 Months Insurance [employer] on file [employer] Care Teams Assurance Manager Relationship Specialty Start Date End Date Jesús Mccullough MD PCP - General Family Medicine 12/15/19
--- OUTSIDE RECORDS SUMMARY | 2025-01-15 06:42 | XMS_ITS | Encounter Summary ---
Author Organization [facility] Address [address], [address] [place] [address] Care Team Providers Care Interior Design Consultant Name Role Phone Jesús Mccullough MD Primary Care Provider [phone] Encounter Details Date Type Department Care Team (Latest Contact Info) Description 08/10/2024 Transcribe Orders [facility] Admitting [address] [phone] Jesús Mccullough MD [address] [place] [address] Left ankle pain, unspecified chronicity (Primary Dx) Social History [...] as of this encounter Results * XR FOOT LEFT (2 VIEWS) (08/10/2024 2:27 PM EDT) Anatomical Region Laterality Modality Foot, Ankle Computed Radiogr aphy 08/11/2024 1:00 PM EDT Impressions 08/11/2024 1:03 PM EDT LEFT ANKLE: 1. Severe soft tissue swelling [...] to be communicated to a licensed caregiver. Narrative 08/11/2024 1:03 PM EDT EXAMINATION: 2 XRAY VIEWS OF THE LEFT [...] effusion is seen. Boehler's angle is maintained. Procedure Note Seferino Rehman MD - 08/11/2024 EXAMINATION: 2 XRAY VIEWS OF THE LEFT ANKLE; TWO XRAY VIEWS OF THE LEFT FOOT; TWOXRAY VIEWS OF THE RIGHT FOOT 08/10/2024 2:26 pm COMPARISON: None. HISTORY: ORDERING SYSTEM PROVIDED HISTORY: Left ankle pain, unspecifiedchronicity 24-year-old female with left ankle pain FINDINGS: Left ankle: Severe soft tissue swelling of the anterior and medial ankle. Evidenceof prior tibiotalar and talonavicular arthrodesis with multiple screws and plates. Calcaneus appears intact. Visualized hardware appears intact. Probable heterotopic ossification along the medial malleolus. Left foot: Talonavicular and tibiotalar joint arthrodesis hardware. Calcaneusappears intact. Severe soft tissue swelling of the medial and anterior ankle.Mild soft tissue swelling at the dorsum of foot. No acute displaced fractureor dislocation. Hardware appears intact. Diffuse osteopenia. Heterotopic ossification along the medial malleolus. Right foot: Osseous alignment is normal. Joint spaces are well maintained. Nomarginal erosions are identified. No acute fracture or gross dislocation isseen. The medial and middle cuneiforms demonstrate proper alignment with thebase of the 1st and 2nd metatarsals respectively. No tibiotalar joint effusion is seen. Boehler's angle is maintained. IMPRESSION: LEFT ANKLE: 1. Severe soft tissue swelling of the anterior and medial ankle.Underlying infection not excluded. 2. Evidence of prior tibiotalar and talonavicular joint arthrodesis with multiple screws and plates. 3. No acute displaced fracture or dislocation. 4. Hardware appears intact. 5. Probable heterotopic ossification along the medial malleolus. LEFT FOOT: 1. Severe soft tissue swelling of the medial and anterior ankle.Underlying infection not entirely excluded. 2. Mild soft tissue swelling at the dorsum of foot. 3. No acute displaced fracture or dislocation. 4. Hardware appears intact. 5. Diffuse osteopenia. RIGHT FOOT: 1. No acute displaced fracture or dislocation. 2. No marginal erosions. The findings were sent to the Radiology Results Communication Center at1:03 pm on 08/11/2024 to be communicated to a licensed caregiver. us Jesús Mccullough MD IMG DIAGNOSTIC IMAGING ORDERABL ES Final Result * XR ANKLE LEFT (2 VIEWS) (08/10/2024 2:27 PM EDT) Anatomical Region Laterality Modality Leg, Ankle, Foot Computed Radiog marko 08/11/2024 1:00 PM EDT Impressions 08/11/2024 1:03 PM EDT LEFT ANKLE: 1. Severe soft tissue swelling [...] to be communicated to a licensed caregiver. Narrative 08/11/2024 1:03 PM EDT EXAMINATION: 2 XRAY VIEWS OF THE LEFT [...] effusion is seen. Boehler's angle is maintained. Procedure Note Seferino Rehman MD - 08/11/2024 EXAMINATION: 2 XRAY VIEWS OF THE LEFT ANKLE; TWO XRAY VIEWS OF THE LEFT FOOT; TWOXRAY VIEWS OF THE RIGHT FOOT 08/10/2024 2:26 pm COMPARISON: None. HISTORY: ORDERING SYSTEM PROVIDED HISTORY: Left ankle pain, unspecifiedchronicity 24-year-old female with left ankle pain FINDINGS: Left ankle: Severe soft tissue swelling of the anterior and medial ankle. Evidenceof prior tibiotalar and talonavicular arthrodesis with multiple screws and plates. Calcaneus appears intact. Visualized hardware appears intact. Probable heterotopic ossification along the medial malleolus. Left foot: Talonavicular and tibiotalar joint arthrodesis hardware. Calcaneusappears intact. Severe soft tissue swelling of the medial and anterior ankle.Mild soft tissue swelling at the dorsum of foot. No acute displaced fractureor dislocation. Hardware appears intact. Diffuse osteopenia. Heterotopic ossification along the medial malleolus. Right foot: Osseous alignment is normal. Joint spaces are well maintained. Nomarginal erosions are identified. No acute fracture or gross dislocation isseen. The medial and middle cuneiforms demonstrate proper alignment with thebase of the 1st and 2nd metatarsals respectively. No tibiotalar joint effusion is seen. Boehler's angle is maintained. IMPRESSION: LEFT ANKLE: 1. Severe soft tissue swelling of the anterior and medial ankle.Underlying infection not excluded. 2. Evidence of prior tibiotalar and talonavicular joint arthrodesis with multiple screws and plates. 3. No acute displaced fracture or dislocation. 4. Hardware appears intact. 5. Probable heterotopic ossification along the medial malleolus. LEFT FOOT: 1. Severe soft tissue swelling of the medial and anterior ankle.Underlying infection not entirely excluded. 2. Mild soft tissue swelling at the dorsum of foot. 3. No acute displaced fracture or dislocation. 4. Hardware appears intact. 5. Diffuse osteopenia. RIGHT FOOT: 1. No acute displaced fracture or dislocation. 2. No marginal erosions. The findings were sent to the Radiology Results Communication Center at1:03 pm on 08/11/2024 to be communicated to a licensed caregiver. us Jesús Mccullough MD IMG DIAGNOSTIC IMAGING ORDERABL ES Final Result documented in this encounter Visit Diagnoses Diagnosis Left ankle pain, unspecified chronicity- Primary Left ankle pain, unspecified chronicity documented in this encounter Care Teams Interior Design Consultant Relationship Specialty Start Date End Date Jesús Mccullough MD [address] [place] [address] PCP - General Family Medicine 03/18/20 documented as of this encounter
--- OUTSIDE RECORDS SUMMARY | 2025-01-15 06:42 | XMS_ITS | Encounter Summary ---
Author Organization [facility] Address [address], [address] [place] [address] Care Team Providers Care Disability Insurance Hearing Officer Name Role Phone Jesús Mccullough MD Primary Care Provider [phone] Reason for Referral * Imaging (Routine) - Closed Specialty Diagnoses / Procedures Referred By Contac t Referred To Contact Radiology Diagnoses Right calf pain Procedures VL DUP LOWER EXTREMITY VENOUS RIGHT Tricia Reich PA [address] [facility] [place] [address] Phone: tel: fax: Referral ID Status Reason Start Date Expiration Date Visits Re quested Visits Authorized [id number] Closed 07/02/2021 07/02/2022 1 1 Encounter Details Date Type Department Care Team (Late st Contact Info) Description 07/02/2021 Transcribe Orders [facility] [address] [phone] Tricia Reich PA [address] [place] [address] Right calf pain (Primary Dx) Social History Tobacco Use Types [...] Type Priority Associated Diagnoses Orde r Schedule VL DUP LOWER EXTREMITY VENOUS RIGHT Imaging Routine Right calf pain Expected: 07/02/2021, Expires: 07/02/2022 documented as of this encounter Visit Diagnoses Diagnosis Right calf pain- Primary documented in this encounter Care Teams Disability Insurance Hearing Officer Relationship Specialty Start Date End Date Jesús Mccullough MD [address] [place] [address] PCP - General Family Medicine 03/18/20 documented as of this encounter
--- OUTSIDE RECORDS SUMMARY | 2025-01-15 06:42 | XMS_ITS | Encounter Summary ---
Author Organization [facility] Address [address], [address] [place] [address] Care Team Providers Care Conductor/Brakeman Name Role Phone Jesús Mccullough MD Primary Care Provider [phone] Reason for Referral * Imaging (Routine) - Closed Specialty Diagnoses / Procedures Referred By Contac t Referred To Contact Radiology Diagnoses Abnormal x-ray Right ankle pain, unspecified chronicity Procedures MRI ANKLE RIGHT WO CONTRAST Jesús Mccullough MD [address] [place] [address] Phone: tel: fax: Referral ID Status Reason Start Date Expiration Date Visits Re quested Visits Authorized [id number] Closed 01/16/2022 01/16/2023 1 1 Encounter Details Date Type Department Care Team (Latest Contact Info) Description 01/16/2022 Transcribe Orders [facility] [address] [phone] Jesús Mccullough MD [address] [place] [address] Abnormal x-ray (Primary Dx); Right ankle pain, unspecified chronicity Social History Tobacco Use Types Packs/Day Years [...] Type Priority Associated Diagnoses Orde r Schedule MRI ANKLE RIGHT WO CONTRAST Imaging Routine Abnormal x-ray Right ankle pain, unspecified chronicity Expected: 01/16/2022, Expires: 01/16/2023 documented as of this encounter Visit Diagnoses Diagnosis Abnormal x-ray- Primary Other nonspecific (abnormal) findings on radiological and other examinations of body structure Right ankle pain, unspecified chronicity documented in this encounter Care Teams Conductor/Brakeman Relationship Specialty Start Date End Date Jesús Mccullough MD [address] [place] [address] PCP - General Family Medicine 03/18/20 documented as of this encounter
--- OUTSIDE RECORDS SUMMARY | 2025-01-15 06:43 | XMS_ITS | CCD ---
Author Organization [facility] Care Team Providers Care Eye Glass Frame Polisher Name Role Phone Louise Lemos Primary Care Provider LOUISE LEMOS Primary Care Unavailable Louise Lemos [...] Unavailable Louise Lemos MD Primary Care Provider DR LOUISE MUSTAFA Primary Care Unavailable AMINTA Wilhelm, DR GIL Consulting Unavailable AMINTA ., DR GIL Admitting Unavailable AMINTA ., DR GIL Attending Unavailable GAGE JACK Consulting Unavailable JOELY ., DR GIL Primary Care Unavailable HOY ., DR GIL Consulting Unavailable AMINTA ., DR GIL Admitting Unavailable JOELY ., DR GIL Attending Unavailable DR GAGE [...] HOY ., DR GIL Primary Care Unavailable ZIEBER, DR ARTEM Cole Consulting Unavailable HOY ., DR GIL Admitting Unavailable HOY ., DR GIL Attending Unavailable HOY ., DR GIL Consulting Unavailable HOY ., DR GIL Primary Care Unavailable Louise Lemos MD Primary Care Provider DO Hunter Richards Attending Provider [phone] Hunter Richards Attending Unavailable Hunter Richards Admitting Unavailable Louise Lemos MD Primary Care Provider Louise Lemos MD Primary Care Provider Mendeszoon DPM, Thierry Unavailable Unavailable Mendeszoon DPM, Thierry Unavailable Unavailable Mendeszoon DPM, Thierry Unavailable Unavailable Mendeszoon DPM, Thierry Unavailable Unavailable Mendeszoon DPM, Thierry Unavailable Unavailable Mendeszoon DPM, Thierry Unavailable Unavailable Mendeszoon DPM, Thierry Unavailable Unavailable Mendeszoon DPM, Thierry Unavailable Unavailable Mendeszoon DPM, Thierry Unavailable Unavailable Mendeszoon DPM, Thierry Unavailable Unavailable Mendeszoon DPM, Thierry Unavailable Unavailable Mendeszoon DPM, Thierry Unavailable Unavailable Mendeszoon DPM, Thierry Unavailable Unavailable Mendeszoon DPM, Thierry Unavailable Unavailable MendeszoonThierry Attending Unavailable Thierry Braun Referring Unavailable Thierry Braun Attending Unavailable Thierry Braun Referring Unavailable Louise Lemos MD Primary Care Provider [phone] Mendeszoon DPM, Thierry Unavailable Unavailable LOUISE LEMOS Primary Care Unavailable THIERRY BRAUN Admitting Unavailable THIERRY BRAUN Attending Unavailable LOUISE LEMOS Primary Care Unavailable THIERRY BRAUN Admitting Unavailable THIERRY BRAUN Attending Unavailable LOUISE LEMOS Primary Care Unavailable THIERRY BRAUN Admitting Unavailable MENDESZOON, THIERRY J Attending Unavailable TERE LEMOSLAS RON Primary Care Unavailable Mendeszoon DPM, Thierry Unavailable Unavailable Mendeszoon DPM, Thierry Unavailable Unavailable Mendeszoon DPM, Thierry Unavailable Unavailable Mendeszoon DPM, Thierry Unavailable Unavailable Mendeszoon DPM, Thierry Unavailable Unavailable Mendeszoon DPM, Thierry Unavailable Unavailable Mendeszoon DPM, Thierry Unavailable Unavailable Mendeszoon DPM, Thierry Unavailable Unavailable Mendeszoon DPM, Thierry Unavailable Unavailable Mendeszoon DPM, Thierry Unavailable Unavailable Mendeszoon DPM, Thierry Unavailable Unavailable Mendeszoon DPM, Thierry Unavailable Unavailable No Information Unavailable Unavailable Mendeszoon DPM, Thierry Unavailable Unavailable Aminta ARIAS, Louise Singh Primary Care Unavaila diana Hernandez, Jackie Briggs Attending Unavailable HOY, LOUISE M Referring Unavailable HOY, [...] Unavailable HOY, LOUISE M Primary Care Unavailable Thierry Braun Attending Unavailable Thierry Braun Referring Unavailable Thierry Braun Attending Unavailable Thierry Braun Referring Unavailable Thierry Braun Attending Unavailable Thierry Braun Attending Unavailable Thierry Braun Attending Unavailable Thierry Braun Attending Unavailable Thierry Braun Attending Unavailable Thierry Braun Attending Unavailable Thierry Braun Attending Unavailable Thierry Braun Attending Unavailable Thierry Braun Attending Unavailable Thierry Braun Referring Unavailable Thierry Braun Attending Unavailable Mendeszoon, Thierry Briggs Referring Unavailable [...] Thierry Briggs Referring Unavailable Mendeszoon, Thierry Briggs Referring Unavailable Mendeszoon, Thierry Briggs Attending Unavailable Mendeszoon, Thierry Briggs Attending Unavailable Mendeszoon, Thierry Briggs Attending Unavailable WARD SCHUMACHER Attending Unavailable Allergies Allergy Classification Reported Allergen(s) Allergy Type Date of Onset Reaction(s) Facility Anti-Epileptic Agents (5 sources) topiramate Drug Allergy 06-27-19 16 [facility] (20 sources) topiramate; Translations: [TOPIRAMATE] Drug Allergy 06-27-19 16 [place] (7 sources) Hydrocortisone / Neomycin / Polymyxin B; Translations: [NEOMYCIN-POLYMYXI N-HC] Drug Allergy 03-11-20 13 Other: See Comments, Other [facility] (1 source) topiramate; Translations: [Topamax] Drug Allergy [facility] (1 source) smoke; Translations: [smoke] Propensity to adverse reactions (disorder) [facility] (1 source) Grass; Translations: [Grass] Propensity to adverse reactions (disorder) [facility] (1 source) ALLERGIES NOT ON FILE; Translations: [ALLERGIES NOT ON FILE] Propensity to adverse reactions (disorder) [facility] Repository Medications Current Medications Medication Drug Class(es) Dates Sig (Normalized) Sig (Original) acetaminophen 325 mg oral tablet (5 sources) Start: 04-07-2024 take 1 tablet by mouth every four hours as needed 650 mg, oral, Every 4 hours PRN, pain mild (1-3), first line, Starting on Sat04/07/24 at 1606, Recovery (only), When able to take oral medications., If ordered PRN for pain, nurse is permitted to administer this medication for higher pain scores based on patient preference? Yes Start: 04-07-2024 End: 04-07-2024 take 975 mg by mouth once as needed for pain 975 mg, oral, Once, On Sat04/07/24 at 1145, For 1 dose, Preprocedure, If ordered PRN for pain, nurse is permitted to administer this medication for higher pain scores based on patient preference? Yes Start: 03-18-2024 End: 03-18-2024 take 975 mg by mouth once as needed for pain 975 mg, oral, Once, On Sat03/18/24 at 1230, For 1 dose, Preprocedure, If ordered PRN for pain, nurse is permitted to administer this medication for higher pain scores based on patient preference? Yes Start: 07-26-2023 take 1 tablet by karthikeyan th every twelve hours Acetaminophen (Tylenol Arthritis Pain) 650 mg tablet extended release Active 650 MG PO Every 12 hours July 26, 2023 12:00am take 2 tablets by mo uth every six hours as needed acetaminophen (Tylenol) 500 mg tablet Take 2 tablets (1,000 mg) by mouth every 6 hours if needed for mild pain (1 - 3). Active acetaminophen 325 mg / oxyCODONE hydrochloride 7.5 mg oral tablet (20 sources) Opioid Agonist Start: 04-14-2024 take 1 tablet by mouth every eight hours as needed Percocet 7.5 mg-325 mg tablet take 1 tablet by oral route every 8 hours as needed 1 tablet - Active Start: 04-09-2024 take 1 tablet by karthikeyan th every six hours as needed for pain Percocet 10 mg-325 mg tablet take 1 tablet by oral route every 6 hours as needed for pain - Active Start: 03-17-2024 take 1 tablet by karthikeyan th every four to six hours as needed Percocet 5 mg-325 mg tablet take 1 tablet by oral route every 4 - 6 hours as needed 1.00 tablet - Active Start: 03-17-2024 oxyCODONE-acet aminophen (Percocet) 5-325 mg tablet Take 1 tablet by mouth. 03/17/2024 Active amoxicillin 875 mg / clavulanate 125 mg oral tablet (1 source) Penicillin-class Antibacterial Start: 10-07-2021 End: 10-14-2021 take 1 tablet by mouth twice daily amoxicillin-clavulanate (AUGMENTIN) 875-125 MG per tablet Take [...] MG PO Daily July 26, 2023 12:00am cephalexin 500 mg oral capsule (20 sources) Cephalosporin Antibacterial Start: 03-17-2024 take 1 capsule by mouth every twelve hours cephalexin 500 mg capsule take 1 capsule by oral route every 12 hours 500 MG - Active DULoxetine 60 mg delayed release oral capsule (3 sources) Serotonin and Norepinephrine Reuptake Inhibitor Start: 12-18-2021 take 1 capsule by mouth once daily DULoxetine (CYMBALTA) 60 mg capsule Take 60 mg by mouth once daily. 12/18/2021 Active Comment on above: Take 60 mg by mouth once daily. gabapentin 300 mg oral capsule (20 sources) Anti-epileptic Agent Start: 04-27-2024 End: 04-30-2024 take 1 capsule by mouth twice daily, then take 2 capsules by mouth at bedtime gabapentin 300 mg capsule take 1 capsule by oral route 2 times every day and take 2 capsules by oral route at bedtime - Active Start: 04-24-2024 End: 04-27-2024 take 1 capsule by mouth three times daily gabapentin 300 mg capsule take 1 capsule by oral route 3 times every day 300 MG - No Longer Active Start: 04-07-2024 End: 04-07-2024 take 1 capsule by mouth once 300 mg, oral, Once, On 04/07/24 at 1145, For 1 dose, Preprocedure, Capsules may be opened and sprinkled on food (eg, applesauce, orange juice, pudding Start: 03-18-2024 End: 03-18-2024 take 1 capsule by mouth once 600 mg, oral, Once, On 03/18/24 at 1230, For 1 dose, Preprocedure, Capsules may be opened and sprinkled on food (eg, applesauce, orange juice, pudding take 2 capsules by m outh once daily at bedtime gabapentin (Neurontin) 100 mg capsule Take 2 capsules (200 mg) by mouth once daily at bedtime. Active End: 06-13-2020 take 2 capsules by mouth twice daily gabapentin (NEURONTIN) 400 MG capsule Take 800 mg by mouth 2 times daily. 0 06/13/2020 Discontinued (LIST CLEANUP) 0.5 ml HYDROmorphone hydrochloride 1 mg/ml prefilled syringe (1 source) Opioid Agonist Start: 04-07-2024 0.5 mg, intravenous, Every 5 min PRN, pain breakthrough, Starting on Sat04/07/24 at 1606, Recovery (only), Max total of 4 mg regardless of dose. hydrOXYzine pamoate 25 mg oral capsule (17 sources) Antihistamine Start: 04-08-2024 take 1 capsule by mouth four times daily Vistaril 25 mg capsule take 1 capsule by oral route 4 times every day 25 MG - Active Start: 02-11-2024 hydrOXYzine HC L (Atarax) 25 mg tablet Take 1 tablet (25 mg) by mouth if needed for anxiety. 02/11/2024 Active ibuprofen 800 mg oral tablet (7 sources) Nonsteroidal Anti-inflammatory Drug Start: 02-11-2024 take 1 tablet by mouth every six hours ibuprofen 800 mg tablet Take 1 tablet (800 mg) by mouth every 6 hours. 02/11/2024 Active Start: 01-05-2016 End: 06-13-2020 take 1 tablet [...] for Pain 0 06/13/2020 Discontinued (LIST CLEANUP) ketorolac tromethamine 10 mg oral tablet (20 sources) Nonsteroidal Anti-inflammatory Drug, Cyclooxygenase Inhibitor Start: 04-08-2024 End: 04-08-2024 take 1 tablet by mouth every six hours as needed ketorolac 10 mg tablet take 1 tablet by oral route every 6 hours as needed for up to 5 days total use 10 MG - Active metFORMIN hydrochloride 500 mg oral tablet (5 sources) Biguanide Start: 03-05-2013 METFORMIN 500 mg tablet 03/05/2013 Active End: 06-13-2020 take 1 tablet by mouth twice daily at mealtime metFORMIN (GLUCOPHAGE) 1000 MG tablet Take 1,000 mg by mouth 2 times daily (with meals) 0 06/13/2020 Discontinued (LIST CLEANUP) 2 ml ondansetron 2 mg/ml injection (1 source) Serotonin-3 Receptor Antagonist Start: 04-07-2024 4 mg, intravenous, Once as needed, nausea/vomiting, first line, Starting on Sat04/07/24 at 1606, For 1 dose, Recovery (only), When administering via IV Push, administer over 3-5 minutes. oxyCODONE hydrochloride 5 mg oral tablet (2 sources) Opioid Agonist Start: 04-07-2024 take 1 tablet by mouth every four hours as needed 10 mg, oral, Every 4 hours PRN, pain severe (7-10), second line, Starting on Sat04/07/24 at 1606, Recovery (only), When able to take oral medications., If ordered PRN for pain, nurse is permitted to administer this medication for higher pain scores based on patient preference? Yes Start: 04-07-2024 take 1 tablet by karthikeyan th every four hours as needed 5 mg, oral, Every 4 hours PRN, pain moderate (4-6), second line, Starting on Sat04/07/24 at 1606, Recovery (only), When able to take oral medications., If ordered PRN for pain, nurse is permitted to administer this medication for higher pain scores based on patient preference? Yes oxygen (O2) therapy (1 source) Start: 04-07-2024 inhalation, Continuous PRN - O2/gases, other, Starting on Sat04/07/24 at 1606, Recovery (only), Device: Nasal Cannula, Rate in liters per minute: Other, Custom Value: 1-6 LPM, Keep O2 Sat Above: 92% phentermine hydrochloride 37.5 mg oral tablet (1 source) Sympathomimetic Amine Anorectic Start: 07-26-2023 take 1 tablet by mouth once daily 30 minutes after breakfast Phentermine (Adipex-P) 37.5 mg tablet Active 37.5 MG PO Daily July 26, 2023 12:00am must administer 30 minutes before or 1-2 hours after breakfast promethazine (Phenergan) 6.25 mg in sodium chloride 0.9% 50 mL IV (1 source) Start: 04-07-2024 6.25 mg, intravenous, Administer over 15 Minutes, Once as needed, Nausea/vomiting, second line, Starting on Sat04/07/24 at 1606, For 1 dose, Recovery (only) Completed/Discontinued Medications Medication Drug Class(es) Dates Sig [...] daily 0 06/13/2020 Discontinued (LIST CLEANUP) cholecalciferol 44062 unt oral capsule (5 sources) Vitamin D End: 06-13-2020 Cholecalciferol (VITAMIN D3) 02245 UNITS CAPS Take 2,000 capsules by mouth once a week 0 06/13/2020 Discontinued (Therapy completed) End: 06-13-2020 take 1 capsule by mouth once daily Cholecalciferol (VITAMIN D3) 50 MCG (2000 UT) CAPS Take 2,000 Units by mouth daily 0 06/13/2020 Discontinued (LIST CLEANUP) cyclobenzaprine hydrochloride 10 mg oral tablet (2 sources) Muscle Relaxant Start: 06-13-2020 End: 06-23-2020 cyclobenzaprine (FLEXERIL) tablet 10 mg EPINEPHrine 0.01 mg/ml / lidocaine hydrochloride 10 mg/ml injectable solution (1 source) Antiarrhythmic, alpha-Adrenergic Agonist, beta-Adrenergic Agonist, Catecholamine, Amide Local Anesthetic Start: 10-07-2021 End: 10-07-2021 lidocaine-EPINEPHrine 1 %-1:599375 injection 20 mL guaiFENesin 20 mg/ml oral solution (1 source) [...] mg by mouth daily 0 06/13/2020 Discontinued levoFLOXacin 500 mg oral tablet (1 source) Quinolone Antimicrobial End: 10-07-2021 take 1 tablet by mouth once daily levoFLOXacin (LEVAQUIN) 500 MG tablet Take 500 mg by mouth daily 0 10/07/2021 Discontinued (LIST CLEANUP) lidocaine 25 mg/ml / prilocaine 25 mg/ml topical cream (1 source) Antiarrhythmic, Amide Local Anesthetic Start: 10-07-2021 End: 10-07-2021 lidocaine-prilocaine (EMLA) cream Start: 10-07-2021 End: 10-07-2021 lidocaine-prilocaine (EMLA) cream 1 ml LORazepam 2 mg/ml injection (2 sources) Benzodiazepine Start: 10-07-2021 End: 10-07-2021 LORazepam (ATIVAN) injection 0.5 mg povidone-iodine 50 mg/ml topical solution (1 source) Antiseptic Start: 04-07-2024 End: 04-07-2024 apply 1 dose topically once Topical, Once, On Sat04/07/24 at 1145, For 1 dose, Preprocedure, Nasal swab Sodium Chloride (2 sources) Start: 10-07-2021 End: 10-07-2021 0.9 % sodium chloride IV bolus 2,586 mL Start: 10-07-2021 0.9 % sodium [...] Active Problems Problem Classification Problem Date Documented Da te Episodic/Chronic Chronic kidney disease (1 source) Chronic kidney disease, unspecified; Translations: [CHRONIC KIDNEY DISEASE UNSPECIFIED] Onset: 01-16-2022 Chronic Complications of surgical procedures or medical care (20 sources) Pseudarthrosis after fusion or arthrodesis; Translations: [Pseudarthrosis after fusion or arthrodesis] Onset: 03-18-2024 Episodic Diseases of white blood cells (1 source) Leukocytosis; Translations: [Elevated white blood cell count, unspecified] Chronic Menstrual disorders (4 sources) Secondary dysmenorrhea; Translations: [Dysmenorrhea, unspecified] Onset: 03-19-2024 Chronic Osteoarthritis (20 sources) Localized, secondary osteoarthritis of the ankle and/or foot; Translations: [Secondary osteoarthritis, left ankle and foot] Onset: 10-14-2023 Chronic Other bone disease and musculoskeletal deformities (2 sources) Osteochondritis dissecans of left ankle; Translations: [Osteochondritis dissecans, left ankle and joints of left foot] Chronic Other bone disease and musculoskeletal deformities (1 source) Osteochondritis dissecans; Translations: [Osteochondritis dissecans, unspecified ankle and joints of foot] Chronic Other congenital anomalies (3 sources) Congenital genu valgum of bilateral knees; Translations: [Congenital malformation of knee] Onset: 03-09-2022 Chronic Other connective tissue disease (1 source) H/O: arthrodesis; Translations: [Arthrodesis status] 10-14-2023 Episodic Other diseases of bladder and urethra (4 sources) Bladder-neck obstruction; Translations: [BLADDER-NECK OBSTRUCTION] Onset: 10-27-2021 Chronic Other gastrointestinal disorders (2 sources) Left lower quadrant abdominal swelling, mass and lump; Translations: [Left lower quadrant abdominal swelling, mass and lump] Onset: 03-11-2024 Episodic Other liver diseases (3 sources) Steatosis of liver; Translations: [Fatty (change of) liver, not elsewhere classified] Onset: 06-14-2013 06-14-2013 Chronic Other nervous system disorders (1 source) Lesion of sciatic nerve, right lower limb; Translations: [Lesion of sciatic nerve] 07-26-2023 Chronic Other non-traumatic joint disorders (1 source) Chronic ankle pain; Translations: [Pain in right ankle and joints of right foot] Episodic Other non-traumatic joint disorders (8 sources) Ankle pain; Translations: [Pain in right ankle and joints of right foot] Onset: 03-09-2022 Episodic Other non-traumatic joint disorders (1 source) Pain of right wrist; Translations: [Pain in right wrist] Episodic Other non-traumatic joint disorders (1 source) Hip pain; Translations: [Pain in right hip] 07-25-2023 Episodic Other non-traumatic joint disorders (2 sources) Pain in right hip; Translations: [Pain in joint, pelvic region and thigh] Onset: 07-26-2023 07-26-2023 Episodic Other non-traumatic joint disorders (2 sources) Pain in left knee; Translations: [Pain in joint, lower leg] Onset: 08-06-2024 08-06-2024 Episodic Residual codes; unclassified (1 source) H/O: miscarriage; Translations: [Personal history of other complications of , childbirth and the puerperium] Episodic Residual codes; unclassified (2 sources) Pain; Translations: [Pain, unspecified] Episodic Residual codes; unclassified (1 source) Pain, unspecified; Translations: [Pain, unspecified] Onset: 08-10-2024 Episodic Retinal detachments; defects; vascular occlusion; and retinopathy (3 sources) Retinal dystrophy; 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; Translations: [Trapezius strain, left, initial encounter] Urinary tract infections (7 sources) Urinary tract infectious disease; Translations: [Urinary tract infection, site not specified] Onset: 11-21-2021 Episodic Past or Other Problems Problem Classification Problem Date Documented Da te Episodic/Chronic Abdominal pain (1 source) Unspecified abdominal pain; Translations: [UNSPECIFIED ABDOMINAL PAIN] Onset: 11-25-2021 Episodic Deficiency and other anemia (1 source) Anemia, unspecified; Translations: [ANEMIA UNSPECIFIED] Onset: 01-16-2022 Episodic Genitourinary symptoms and ill-defined conditions (11 sources) Retention of urine; Translations: [Retention of urine, unspecified] Onset: 11-02-2021 Episodic Other acquired deformities (3 sources) Deformity of lower limb; Translations: [Other specified acquired deformities of unspecified lower leg] Onset: 03-09-2022 Episodic Other bone disease and musculoskeletal deformities (3 sources) Disorder of bone; Translations: [Disorder of bone, unspecified] Onset: 03-09-2022 Episodic Other connective tissue disease (3 sources) Peroneal tendinitis of right lower limb; Translations: [Peroneal tendinitis, right leg] Onset: 03-09-2022 Episodic Other connective tissue disease (1 source) Arthrodesis status; Translations: [Arthrodesis status] Onset: 10-14-2023 Episodic Other nervous system disorders (3 sources) Abnormal gait; Translations: [Unspecified abnormalities of gait and mobility] Onset: 03-09-2022 Episodic Other non-traumatic joint disorders (1 source) Acute ankle pain; Translations: [Acute left ankle pain] Episodic Other non-traumatic joint disorders (3 sources) Sinus tarsi syndrome of right ankle; Translations: [Pain in right ankle and joints of right foot] Onset: 03-09-2022 Episodic Other non-traumatic joint disorders (6 sources) Pain in right ankle and joints of right foot; Translations: [Right ankle pain, unspecified chronicity] Onset: 01-16-2022 Episodic Other non-traumatic joint disorders (1 source) Pain in left ankle and joints of left foot; Translations: [Pain in left ankle and joints of left foot] Onset: 10-14-2023 Episodic Other screening for suspected conditions (not mental disorders or infectious disease) (2 sources) Increased lactic acid level; Translations: [Other specified abnormal findings of blood chemistry] Onset: 01-22-2022 Episodic Otitis media and related conditions (20 sources) Otitis media; Translations: [Unspecified nonsuppurative otitis media, unspecified ear] Onset: 12-03-2013 12-03-2013 Episodic Results Test Name Value Interpretation Reference Range Facility Office Visiton 01-07-2025 Follow-up visit [id number] Blanka Farias 2000 F Date Provider Department Center 01/07/2025 AveryANA PAULA WARD [facility] No family history on file Level of Service:66919 [place] OFFICE/OUTPATIENT NEW LOW MDM 30 MINUTES Normal [facility] 36on 12-16-2024 36 Patient called to schedule a new patient appointment with our office. Patient wants to be seen for: Pt has bone depth in left a foot, can't sit on her right hip, and pain in her spine. Patient had MRI done at [place] Patient had surgery done on left foot by [facility] Patient has not been seen by any other orthopaedic surgeons for this issue This appointment IS NOT related to a work related injury Normal [facility] Insulinon 09-23-2024 Insulin 25.1 mU/L Normal [facility] Comment on above: Performed By: #### T NALINI CHAN, CDP ####[address] [place] [address] lab Director: Gage Barraza MD#### FE, LIPR, GLYHGB, T4, INSU, VD25, FT3 ####[facility] [id number] [place], [place] [id number] lab Director: Bala Borges MD Reference Range Normal [facility] Comment on above: Result Comment: Fast in.6-24.9 30 min: 20-112 60 min: 29-88 90 min: 26-84 120 min: 22-79 Performed By: #### T NALINI CHAN, CDP ####[address] [place] [address] lab Director: Gage Barraza MD#### FE, LIPR, GLYHGB, T4, INSU, VD25, FT3 ####[facility] [id number] [place], [place] [id number] lab Director: Bala Borges MD Insulin, totalon 09-23-2024 Insulin 25.1 mU/L [facility] Insulin Reference Range: [facility] Comment on above: Fastin.6-24.9 30 min: 20-112 60 min: 29-88 90 min: 26-84 120 min: 22-79 Ironon 09-23-2024 Interpretation and review of laboratory results Abnormal [facility] Iron [Mass/Vol] 35 ug/dL Low 37 - 145 ug/dL [facility] Iron [Mass/Vol] 35 ug/dL Low 37-145 [facility] Comment on above: Performed By: #### T SH, CP, CDP ####[facility] [address] [place], [place] [id number] Lab Director: Gage Barraza MD#### FE, LIPR, GLYHGB, T4, INSU, VD25, FT3 ####[facility] [id number] [place], [place] [id number] Lab Director: Bala Borges MD Lipid Panelon 09-23-2024 Cholesterol [Mass/Vol] 185 mg/dL 0 - 1 99 mg/dL [facility] Comment on above: Cholesterol Guidelines: <200 Desirable 200-240 Borderline >240 Undesirable Cholesterol in HDL [Mass/Vol] 54 mg/dL 40 - PINF mg/dL [facility] Comment on above: HDL Guidelines: <40 Undesirable 40-59 Borderline >59 Desirable Cholesterol in LDL [Mass/Vol] 112 mg/dL High 0 - 100 mg/dL [facility] Comment on above: LDL Guidelines: <100 Desirable 100-129 Near to/above Desirable 130-159 Borderline >159 Undesirable Direct (measured) LDL and calculated LDL are not interchangeable tests. Cholesterol in VLDL [Mass/Vol] 19 mg/dL 1 - 30 mg/dL [facility] Cholesterol.total/Chol esterol in HDL [Mass ratio] 3.4 {ratio} NINF - 5.0 [facility] Interpretation and review of laboratory results Abnormal [facility] Triglyceride [Mass/Vol] 93 mg/dL NINF - 150 mg/dL [facility] Comment on above: Triglyceride Guidelines: <150 Desirable 150-199 Borderline 200-499 High >499 Very high Based on AHA Guidelines for fasting triglyceride, January 2012. Lipid Profileon 09-23-2024 Cholesterol [Mass/Vol] 185 mg/dL Normal 0-199 [facility] Comment on above: Result Comment: Cholesterol Guidelines: <200 Desirable 200-240 Borderline >240 Undesirable Performed By: #### T NALINI CHAN, CDP ####[address] [place] [address] Lab Director: Gage Barraza MD#### FE, LIPR, GLYHGB, T4, INSU, VD25, FT3 ####[facility] [address] [place] [address] Lab Director: Bala Borges MD Cholesterol in HDL [Mass/Vol] 54 mg/dL Normal >40 [facility] Comment on above: Result Comment: HDL Guidelines: <40 Undesirable 40-59 Borderline >59 Desirable Performed By: #### T NALINI CHAN, CDP ####[address] [place], [place] [address]83 Lab Director: Gage Barraza MD#### FE, LIPR, GLYHGB, T4, INSU, VD25, FT3 ####[facility] [address] [place] [address] Lab Director: Bala Borges MD Cholesterol in LDL [Mass/Vol] 112 mg/dL High 0-100 [facility] Comment on above: Result Comment: LDL Guidelines: <100 Desirable 100-129 Near to/above Desirable 130-159 Borderline >159 Undesirable Direct (measured) LDL and calculated LDL are not interchangeable tests. Performed By: #### T NALINI CHAN, CDP ####[address] [place], [place] 5446383 Lab Director: Gage Barraza MD#### FE, LIPR, GLYHGB, T4, INSU, VD25, FT3 ####[facility] [address] [place] [address] Lab Director: Bala Borges MD Cholesterol in VLDL [Mass/Vol] 19 mg/dL Normal 1-30 [facility] Comment on above: Performed By: #### T NALINI CHAN, CDP ####[facility] [place] , [place] [address]83 Lab Director: Gage Barraza MD#### FE, LIPR, GLYHGB, T4, INSU, VD25, FT3 ####[facility] [address] [place], [place] 9658808 Lab Director: Bala Borges MD Cholesterol.total/Chol esterol in HDL [Mass ratio] 3.4 {ratio} Normal <5.0 [facility] Comment on above: Performed By: #### T NALINI CHAN, CDP ####[address] , [facility] lab Director: Gage Barraza MD#### FE, LIPR, GLYHGB, T4, INSU, VD25, FT3 ####[facility] [address] [place] [address] Lab Director: Bala Borges MD Triglyceride [Mass/Vol] 93 mg/dL Normal <150 [facility] Comment on above: Result Comment: Triglyceride Guidelines: <150 Desirable 150-199 Borderline 200-499 High >499 Very high Based on AHA Guidelines for fasting triglyceride, January 2012. Performed By: #### T NALINI CHAN, CDP ####[address] , [facility] Lab Director: Gage Barraza MD#### FE, LIPR, GLYHGB, T4, INSU, VD25, FT3 ####[facility] [address] [place] [address] Lab Director: Bala Borges MD No Panel Informationon 09-23 [facility] T3, Freeon 09-23-2024 Free T3 [Mass/Vol] 3.26 pg/mL 2.00 - 4. 40 pg/mL [facility] Free T3 [Mass/Vol] 3.26 pg/mL Normal 2.00-4.40 [facility] Comment on above: Performed By: #### T NALINI CHAN, CDP ####[address] [place], [place] 9105483 Lab Director: Gage Barraza MD#### FE, LIPR, GLYHGB, T4, INSU, VD25, FT3 ####[facility] [place], [place] 4153108 Lab Director: Bala Borges MD T4on 09-23-2024 T4 [Mass/Vol] 11.5 ug/dL 4.5 - 11.7 ug/dL [facility] Thyroxine T4on 09-23-2024 T4 [Mass/Vol] 11.5 ug/dL Normal 4.5-11.7 [facility] Comment on above: Performed By: #### T NALINI CHAN, CDP ####[address] [place], [place] [address]83 lab Director: Gage Barraza MD#### FE, LIPR, GLYHGB, T4, INSU, VD25, FT3 ####[place] [place] [address] Lab Director: Bala Borges MD Vitamin D 25 Hydroxyon 09-23 25-hydroxyvitamin D3 [Mass/Vol] 32.9 ng/mL 30.0 - 100.0 ng/mL [facility] Comment on above: Reference Range: Vitamin D status Range Deficiency <20 ng/mL Mild Deficiency 20-30 ng/mL Sufficiency 30-100 ng/mL Toxicity >100 ng/mL Vitamin D 25 OH09-23-2024 Vitamin D 25 OH 32.9 ng/mL Normal 30.0-100.0 [facility] Comment on above: Result Comment: Reference Range: Vitamin D status Range Deficiency <20 ng/mL Mild Deficiency 20-30 ng/mL Sufficiency 30-100 ng/mL Toxicity >100 ng/mL Performed By: #### T NALINI CHAN, CDP ####[address] [place] [address] lab Director: Gage Barraza MD#### FE, LIPR, GLYHGB, T4, INSU, VD25, FT3 ####[facility] [address] [place] [address] lab Director: Bala Borges MD CBC with Auto Differentialon 09-22-2024 Basophils (Bld) [#/Vol] 0.04 10*3/uL [facility] Basophils/100 WBC (Bld) 0 % 0 - 2 % [facility] Eosinophils (Bld) [#/Vol] 0.09 10*3/uL [facility] Eosinophils/100 WBC (Bld) 1 % 1 - 4 % [facility] Erythrocyte distribution width (RBC) [Ratio] 13.3 % 11.8 - 14.4 % [facility] Hematocrit (Bld) [Volume fraction] 36.5 % 36.3 - 47.1 % [facility] Hemoglobin (Bld) [Mass/Vol] 12.1 g/dL 11.9 - 15.1 g/dL [facility] Immature granulocytes (Bld) [#/Vol] 0.04 10*3/uL [facility] Immature granulocytes/100 WBC (Bld) 0 % 0 [facility] Interpretation and review of laboratory results Abnormal [facility] Lymphocytes/100 WBC (Bld) 18 % Low 24 - 43 % [facility] Lymphocytes/100 WBC (Bld) 2.31 % [facility] MCH (RBC) [Entitic mass] 27.3 pg 25.2 - 33.5 pg [facility] MCHC (RBC) [Mass/Vol] 33.2 g/dL 28.4 - 34.8 g/dL [facility] MCV (RBC) [Entitic vol] 82.4 fL Low 82.6 - 102.9 fL [facility] Monocytes/100 WBC (Bld) 7 % 3 - 12 % [facility] Monocytes/100 WBC (Bld) 0.83 % [facility] Neutrophils/100 WBC (Bld) 74 % High 36 - 65 % [facility] Nucleated RBC/100 WBC (Bld) [Ratio] 0 % 0.0 per 100 WBC [facility] Platelet mean volume (Bld) [Entitic vol] 10 fL 8.1 - 13.5 fL [facility] Platelets (Bld) [#/Vol] 359 10*3/uL [facility] RBC (Bld) [#/Vol] 4.43 10*6/uL 3.95 - 5.1 1 m/uL [facility] Segmented neutrophils/100 WBC (Bld) 9.48 % High [facility] WBC other (Bld) [#/Vol] 12.8 High [facility] CBC with Diffon 09-22-2024 Abs. Basophil 0.04 k/uL Normal 0.00-0.20 [facility] Comment on above: Performed By: #### T NALINI CHAN, CDP ####[address] [place], [place] [address])[phone] Director: Gage Barraza MD#### FE, LIPR, GLYHGB, T4, INSU, VD25, FT3 ####[phone] [place], [place] [address])[phone] Director: Bala Borges MD Abs.Imm.Granulocyte 0.04 k/uL Normal 0.00-0.30 [facility] Comment on above: Performed By: #### T NALINI CHAN, CDP ####[address] [place] [address]([facility])[phone] Director: Gage Barraza MD#### FE, LIPR, GLYHGB, T4, INSU, VD25, FT3 ####[facility] [address] [place] [address] Lab Director: Bala Borges MD Abs.Neutrophil (Seg) 9.48 k/uL High 1.50-8.10 [facility] Comment on above: Performed By: #### T NALINI CHAN, CDP ####[address] [place] [address] Lab Director: Gage Barraza MD#### FE, LIPR, GLYHGB, T4, INSU, VD25, FT3 ####[address] [place] [place] [address] Lab Director: Bala Borges MD Basophils/100 WBC (Bld) 0 % Normal 0-2 [facility] Comment on above: Performed By: #### T ROCIO CP, CDP ####[address] [place] [address]383 Lab Director: Gage Barraza MD#### FE, LIPR, GLYHGB, T4, INSU, VD25, FT3 ####[place] [place] [place] [address] Lab Director: Bala Borges MD Eosinophils (Bld) [#/Vol] 0.09 10*3/uL Normal 0.00-0.44 [facility] Comment on above: Performed By: #### T NALINI CHAN, CDP ####[address] [place] [address] Lab Director: Gage Barraza MD#### FE, LIPR, GLYHGB, T4, INSU, VD25, FT3 ####[address] [address] Lab Director: Bala Borges MD Eosinophils/100 WBC (Bld) 1 % Normal 1-4 [facility] Comment on above: Performed By: #### T ROCIO CP, CDP ####[address] [place] [address]27[address] Lab Director: Gage Barraza MD#### FE, LIPR, GLYHGB, T4, INSU, VD25, FT3 ####[place] [place] [place], [place] [id number] Lab Director: Bala Borges MD Erythrocyte distribution width (RBC) [Ratio] 13.3 % Normal 11.8-14.4 [facility] Comment on above: Performed By: #### T NALINI CHAN, CDP ####[address] [place], [place] 67[address]83 Lab Director: Gage Barraza MD#### FE, LIPR, GLYHGB, T4, INSU, VD25, FT3 ####[address] [address] Lab Director: Bala Borges MD Hematocrit (Bld) [Volume fraction] 36.5 % Normal 36.3-47.1 [facility] Comment on above: Performed By: #### Pablito CHAN CP, CDP ####[address] [place] [address] Lab Director: Gage Barraza MD#### FE, LIPR, GLYHGB, T4, INSU, VD25, FT3 ####[address] [address] Lab Director: Bala Borges MD Hemoglobin (Bld) [Mass/Vol] 12.1 g/dL Normal 11.9-15.1 [facility] Comment on above: Performed By: #### Pablito CHAN CP, CDP ####[address] , [place] 626[address]83 Lab Director: Gage Barraza MD#### FE, LIPR, GLYHGB, T4, INSU, VD25, FT3 ####[address] [place] [address] Lab Director: Bala Borges MD Immature granulocytes/100 WBC (Bld) 0 % Normal 0 [facility] Comment on above: Performed By: #### T NALINI CHAN, CDP ####[address] [place], [place] 6224783 Lab Director: Gage Barraza MD#### FE, LIPR, GLYHGB, T4, INSU, VD25, FT3 ####[facility] [id number] [place] [address] Lab Director: Bala Borges MD Lymphocytes (Bld) [#/Vol] 2.31 10*3/uL Normal 1.10-3.70 [facility] Comment on above: Performed By: #### T NALINI CHAN, CDP ####[address] [place] [address]([facility])[phone] Director: Gage Barraza MD#### FE, LIPR, GLYHGB, T4, INSU, VD25, FT3 ####[address] [place], [place] [address])[phone] Director: Bala Borges MD Lymphocytes/100 WBC (Bld) 18 % Low 24-43 [facility] Comment on above: Performed By: #### Pablito CHAN CP, CDP ####[address] [place] [address]([facility])[phone] Director: Gage Barraza MD#### FE, LIPR, GLYHGB, T4, INSU, VD25, FT3 ####[address] [address] Lab Director: Bala Borges MD MCH (RBC) [Entitic mass] 27.3 pg Normal 25.2-33.5 [facility] Comment on above: Performed By: #### Pablito CHAN CP, CDP ####[address] [place] [address]([facility])[phone] Director: Gage Barraza MD#### FE, LIPR, GLYHGB, T4, INSU, VD25, FT3 ####[address] [place] [address] Lab Director: Bala Borges MD MCHC (RBC) [Mass/Vol] 33.2 g/dL Normal 28.4-34.8 [facility] Comment on above: Performed By: #### T NALINI CHAN, CDP ####[address] , [place] 1185283 Lab Director: Gage Barraza MD#### FE, LIPR, GLYHGB, T4, INSU, VD25, FT3 ####[facility] [address] [place] [address] Lab Director: Bala Borges MD MCV (RBC) [Entitic vol] 82.4 fL Low 82.6-102.9 [facility] Comment on above: Performed By: #### T NALINI CHAN, CDP ####[address] [place] [address] Lab Director: Gage Barraza MD#### FE, LIPR, GLYHGB, T4, INSU, VD25, FT3 ####[address] [place] [place] [address] Lab Director: Bala Borges MD Monocytes (Bld) [#/Vol] 0.83 10*3/uL Normal 0.10-1.20 [facility] Comment on above: Performed By: #### T NALINI CHAN, CDP ####[address] , [place] 0212983 Lab Director: Gage Barraza MD#### FE, LIPR, GLYHGB, T4, INSU, VD25, FT3 ####[address] [place] [place] [address] Lab Director: Bala Borges MD Monocytes/100 WBC (Bld) 7 % Normal 3-12 [facility] Comment on above: Performed By: #### T NALINI CHAN, CDP ####[address] [place], [place] 7667383 Lab Director: Gage Barraza MD#### FE, LIPR, GLYHGB, T4, INSU, VD25, FT3 ####[place] [place], [place] [phone])[phone] Director: Bala Borges MD Neutrophil (Seg) 74 % High 36-65 [facility] Comment on above: Performed By: #### T NALINI CHAN, CDP ####[address] [place], [place] [phone])[phone] Director: Gage Barraza MD#### FE, LIPR, GLYHGB, T4, INSU, VD25, FT3 ####[facility] [address] [place], [place] [id number])[phone] Director: Bala Borges MD NRBC Automated 0.0 per 100 WBC Normal 0.0 [facility] Comment on above: Performed By: #### T NALINI CHAN, CDP ####[address] [place] [address] Lab Director: Gage Barraza MD#### FE, LIPR, GLYHGB, T4, INSU, VD25, FT3 ####[address] [address] Lab Director: Bala Borges MD Platelet mean volume (Bld) [Entitic vol] 10.0 fL Normal 8.1-13.5 [facility] Comment on above: Performed By: #### T NALINI CHAN, CDP ####[address] , [place] [phone])[phone] Director: Gage Barraza MD#### FE, LIPR, GLYHGB, T4, INSU, VD25, FT3 ####[address] [place] [place] [address] Lab Director: Bala Borges MD Platelets (Bld) [#/Vol] 359 10*3/uL Normal 138-453 [facility] Comment on above: Performed By: #### T NALINI CHAN, CDP ####[address] [phone] [facility] Director: Gage Barraza MD#### FE, LIPR, GLYHGB, T4, INSU, VD25, FT3 ####[facility] [address] [place], [place] 2575108 Lab Director: Bala Borges MD RBC (Bld) [#/Vol] 4.43 10*6/uL Normal 3.95-5.11 [facility] Comment on above: Performed By: #### T NALINI CHAN, CDP ####[address] [place] [address]27383 [facility] Director: Gage Barraza MD#### FE, LIPR, GLYHGB, T4, INSU, VD25, FT3 ####[facility] [address] [place] [address] [facility] Director: Bala Borges MD WBC (Bld) [#/Vol] 12.8 10*3/uL High 3.5-11.3 [facility] Comment on above: Performed By: #### T NALINI CHAN, CDP ####[address] [place] [address]383 [facility] Director: Gage Barraza MD#### FE, LIPR, GLYHGB, T4, INSU, VD25, FT3 ####[place] [place] [address] Lab Director: Bala Borges MD Comp Metabolic Profon 2024 Albumin [Mass/Vol] 4.8 g/dL Normal 3.5-5.2 [facility] Comment on above: Performed By: #### T NALINI CHAN, CDP ####[address] [place] [address]383 [facility] Director: Gage Barraza MD#### FE, LIPR, GLYHGB, T4, INSU, VD25, FT3 ####[facility] [address] [place], [place] 2899508 Lab Director: Bala Borges MD Albumin/Glob Ratio 1.4 Normal 1.0-2.5 [facility] Comment on above: Performed By: #### T NALINI CHAN, CDP ####[address] [place], [place] 2594883 Lab Director: Gage Barraza MD#### FE, LIPR, GLYHGB, T4, INSU, VD25, FT3 ####[address] [phone] Lab Director: Bala Borges MD Alkaline Phos 74 U/L Normal 35-104 [facility] Comment on above: Performed By: #### T NALINI CHAN, CDP ####[address] [place], [place] 8952483 Lab Director: Gage Barraza MD#### FE, LIPR, GLYHGB, T4, INSU, VD25, FT3 ####[address] [address] Lab Director: Bala Borges MD ALT [Catalytic activity/Vol] 22 U/L Normal 10-35 [facility] Comment on above: Performed By: #### T NALINI CHAN, CDP ####[address] [place], [place] 4452883 Lab Director: Gage Barraza MD#### FE, LIPR, GLYHGB, T4, INSU, VD25, FT3 ####[address] [place] [place] [address] Lab Director: Bala Borges MD Anion gap [Moles/Vol] 16 mmol/L Normal 9-16 [facility] Comment on above: Performed By: #### T NALINI CHAN, CDP ####[address] [place], [place] 0071483 Lab Director: Gage Barraza MD#### FE, LIPR, GLYHGB, T4, INSU, VD25, FT3 ####[place] [place], [place] 1157508 Lab Director: Bala Borges MD AST [Catalytic activity/Vol] 29 U/L Normal 10-35 [facility] Comment on above: Performed By: #### T NALINI CHAN, CDP ####[address] [place] [address]([facility])[phone] Director: Gage Barraza MD#### FE, LIPR, GLYHGB, T4, INSU, VD25, FT3 ####[address] [place], [place] [address])[phone] Director: Bala Borges MD Bilirubin [Mass/Vol] 0.5 mg/dL Normal 0.00-1.20 [facility] Comment on above: Performed By: #### T NALINI CHAN, CDP ####[address] [place] [address]([facility])[phone] Director: Gage Barraza MD#### FE, LIPR, GLYHGB, T4, INSU, VD25, FT3 ####[place] [address] Lab Director: Bala Borges MD BUN/CRE Ratio 20 Normal 9-20 [facility] Comment on above: Performed By: #### T NALINI CHAN, CDP ####[address] [place] [address]([facility])[phone] Director: Gage Barraza MD#### FE, LIPR, GLYHGB, T4, INSU, VD25, FT3 ####[address] [place] [address] Lab Director: Bala Borges MD Calcium [Mass/Vol] 9.9 mg/dL Normal 8.6-10.4 [facility] Comment on above: Performed By: #### T NALINI CHAN, CDP ####[address] , [place] 1435083 Lab Director: Gage Barraza MD#### FE, LIPR, GLYHGB, T4, INSU, VD25, FT3 ####[address] [place] [place] [address] Lab Director: Bala Borges MD Chloride [Moles/Vol] 104 mmol/L Normal 98-107 [facility] Comment on above: Performed By: #### T ROCIO, CP, CDP ####[address] [place], [place] 6816983 Lab Director: Gage Barraza MD#### FE, LIPR, GLYHGB, T4, INSU, VD25, FT3 ####[address] [address] Lab Director: Bala Borges MD CO2 [Moles/Vol] 21 mmol/L Normal 20-31 [facility] Comment on above: Performed By: #### T ROCIO CP, CDP ####[address] , [place] 3901083 Lab Director: Gage Barraza MD#### FE, LIPR, GLYHGB, T4, INSU, VD25, FT3 ####[address] [place], [place] 2231008 Lab Director: Bala Borges MD Creatinine [Mass/Vol] 0.7 mg/dL Normal 0.50-0.90 [facility] Comment on above: Performed By: #### T ROCIO CP, CDP ####[address] , [place] 3003983 Lab Director: Gage Barraza MD#### FE, LIPR, GLYHGB, T4, INSU, VD25, FT3 ####[place] [place], [place] 7356408 Lab Director: Bala Borges MD GFR/1.73 sq M.predicted among non-blacks MDRD (S/P/Bld) [Vol rate/Area] mL/min/{1.73_m2} Normal >60 [facility] Comment on above: Result Comment: These results [...] affects renal tubular secretion. Performed By: #### T NALINI CHAN, CDP ####[address] [place] [address] Lab Director: Gage Barraza MD#### FE, LIPR, GLYHGB, T4, INSU, VD25, FT3 ####[address] [address] Lab Director: Bala Borges MD Glucose [Mass/Vol] 84 mg/dL Normal 74-99 [facility] Comment on above: Performed By: #### Pablito CHAN CP, CDP ####[address] [place] [address] Lab Director: Gage Barraza MD#### FE, LIPR, GLYHGB, T4, INSU, VD25, FT3 ####[address] [phone] Lab Director: Bala Borges MD Potassium [Moles/Vol] 4.1 mmol/L Normal 3.7-5.3 [facility] Comment on above: Performed By: #### T NALINI CHAN, CDP ####[address] [place], [place] 5030983 Lab Director: Gage Barraza MD#### FE, LIPR, GLYHGB, T4, INSU, VD25, FT3 ####[address] [address] Lab Director: Bala Borges MD Protein [Mass/Vol] 8.1 g/dL Normal 6.6-8.7 [facility] Comment on above: Performed By: #### T NALINI CHAN, CDP ####[address] [place], [place] 5998183 Lab Director: Gage Barraza MD#### FE, LIPR, GLYHGB, T4, INSU, VD25, FT3 ####[facility] [address] [place] [address] Lab Director: Bala Borges MD Sodium [Moles/Vol] 141 mmol/L Normal 136-145 [facility] Comment on above: Performed By: #### T NALINI CHAN, CDP ####[address] [place], [place] 3066883 Lab Director: Gage Barraza MD#### FE, LIPR, GLYHGB, T4, INSU, VD25, FT3 ####[address] [place] [place] [address] Lab Director: Bala Borges MD Urea nitrogen [Mass/Vol] 14 mg/dL Normal 6-20 [facility] Comment on above: Performed By: #### T NALINI CHAN, CDP ####[address] [place], [place] 8045483 Lab Director: Gage Barraza MD#### FE, LIPR, GLYHGB, T4, INSU, VD25, FT3 ####[facility] [address] [place] [address] Lab Director: Bala Borges MD Comprehensive Metabolic Pane [facility] 09-22-2024 Albumin [Mass/Vol] 4.8 g/dL 3.5 - 5.2 g/dL [facility] Albumin/Globulin [Mass ratio] 1.4 {ratio} 1.0 - 2.5 [facility] ALP [Catalytic activity/Vol] 74 U/L 35 - 104 U/L [facility] ALT [Catalytic activity/Vol] 22 U/L 10 - 35 U/L [facility] Anion gap [Moles/Vol] 16 mmol/L 9 - 16 mmol/L [facility] AST [Catalytic activity/Vol] 29 U/L 10 - 35 U/L [facility] Bilirubin [Mass/Vol] 0.5 mg/dL 0.00 - 1.20 mg/dL [facility] Calcium [Mass/Vol] 9.9 mg/dL 8.6 - 10. 4 mg/dL [facility] Chloride [Moles/Vol] 104 mmol/L 98 - 10 7 mmol/L [facility] CO2 [Moles/Vol] 21 mmol/L 20 - 31 mmol/L [facility] Creatinine [Mass/Vol] 0.7 mg/dL 0.50 - 0.90 mg/dL [facility] Est, Glom Filt Rate - PINF [facility] Comment on above: These results are not intended for use [...] that affects renal tubular secretion. Glucose [Mass/Vol] 84 mg/dL 74 - 99 mg/dL [facility] Potassium [Moles/Vol] 4.1 mmol/L 3.7 - 5.3 mmol/L [facility] Protein [Mass/Vol] 8.1 g/dL 6.6 - 8.7 g/dL [facility] Sodium [Moles/Vol] 141 mmol/L 136 - 145 mmol/L [facility] Urea nitrogen [Mass/Vol] 14 mg/dL 6 - 20 mg/dL [facility] Urea nitrogen/Creatinine [Mass ratio] 20 mg/mg 9 - 20 [facility] Hemoglobin A1Con 09-22-2024 Average glucose Estimated from glycated hemoglobin (Bld) [Mass/Vol] 105 mg/dL [facility] Comment on above: The ADA and AACC rec ommend providing the estimated average glucose result to permit better patient understanding of their HBA1c result. HbA1c (Bld) [Mass fraction] 5.3 % 4.0 - 6.0 % [facility] Glucose [Mass/Vol] 105 mg/dL Normal [facility] Comment on above: Result Comment: The ADA and AACC recommend providing the estimated average glucose result to permit better patient understanding of their HBA1c result. Performed By: #### T NALINI CHAN, CDP ####[address] , [place] 676[address] Lab Director: Gage Barraza MD#### FE, LIPR, GLYHGB, T4, INSU, VD25, FT3 ####[facility] [address] [place], [place] 0882908 Lab Director: Bala Borges MD HbA1c (Bld) [Mass fraction] 5.3 % Normal 4.0-6.0 [facility] Comment on above: Performed By: #### T NALINI CHAN, CDP ####[address] [place] [address] lab Director: Gage Barraza MD#### FE, LIPR, GLYHGB, T4, INSU, VD25, FT3 ####[place] [id number] [place], [place] [id number] Lab Director: Bala Borges MD No Panel Informationon 09-22 [facility] TSHon 09-22-2024 TSH Qn 1.93 m[IU]/L [facility] Thyroid Stim. Horm.on 2024 Thyroid Stim. Horm. 1.93 uIU/mL Normal 0.27-4.20 [facility] Comment on above: Performed By: #### T NALINI CHAN, CDP ####[address] [place], [place] [id number] Lab Director: Gage Barraza MD#### FE, LIPR, GLYHGB, T4, INSU, VD25, FT3 ####[facility] [id number] [place] [id number] Lab Director: Bala Borges MD Audiology Office/Clinic Note on 08-24-2024 Audiology Office/Clinic Note Patient Report: Pt was seen today for [...] sound quality. Plan: Patient would like to sweet pickle maker repair from front office representative and patient will call for further adjustments. No charge Electronically signed by Jackie Butler 08/24/24 16:37 EDT Normal [facility] No Panel Informationon 08-11 LEFT ANKLE: 1. Severe soft tissue swelling [...] to be communicated to a licensed caregiver. [facility] EXAMINATION: 2 XRAY VIEWS OF THE LEFT [...] effusion is seen. Boehler's angle is maintained. [facility] Seferino Rehman MD - 08/11/2024 EXAMINATION: 2 [...] to be communicated to a licensed caregiver. [facility] [employer] No Panel InformationOrdered By: Seferino Rehman on 08-11-2024 [facility] Work Phone: XR ANKLE LEFT (2 VIEWS)on XR ANKLE LEFT (2 VIEWS) EXAMINATION: 2 XRAY VIEWS OF THE LEFT [...] by: Seferino Rehman MD 08/11/24 Final result Normal [facility] XR FOOT LEFT (2 VIEWS)on XR FOOT LEFT (2 VIEWS) EXAMINATION: 2 XRAY VIEWS OF THE LEFT [...] by: Seferino Rehman MD 08/11/24 Final result Normal [facility] XR FOOT RIGHT (2 VIEWS)on XR FOOT RIGHT (2 VIEWS) EXAMINATION: 2 XRAY VIEWS OF THE LEFT [...] by: Seferino Rehman MD 08/11/24 Final result Normal [facility] No Panel Informationon 08-10 Radiology Study observation (narrative) [facility] XR Foot - right 2 Viewson Radiology Study observation (narrative) [facility] XR KNEE LEFT (1-2 VIEWS)on 0 08-08-2024 XR KNEE LEFT (1-2 VIEWS) EXAMINATION: TWO XRAY VIEWS OF THE LEFT [...] by: Zachery Luu MD 08/08/24 Final result Normal [facility] XR Knee - left 1 or 2 Viewso n 08-08-2024 No acute osseous abnormality of the left knee evident. [facility] EXAMINATION: TWO XRAY VIEWS OF THE LEFT KNEE 08/06/2024 4:20 pm COMPARISON: None. HISTORY: ORDERING SYSTEM PROVIDED HISTORY: Left knee pain, unspecified chronicity FINDINGS: There is normal alignment of the left knee. There is no fracture or dislocation identified. Joint spaces are preserved. There is no joint effusion present. No chondrocalcinosis or intra-articular loose bodies are identified. [facility] Zachery Luu MD - 08/08/2024 EXAMINATION: TWO [...] osseous abnormality of the left knee evident. [facility] XR Knee - left 1 or 2 ViewsO rdered By: Zachery Luu on 08-08-2024 [facility] Work Phone: XR Knee - left 1 or 2 Viewso n 08-06-2024 Radiology Study observation (narrative) [facility] Cult,Urineon 07-22-2024 Cult,Urine Specimen Description .CLEAN CATCH URINE Culture ESCHERICHIA [...] SUSCEPTIBLE Levofloxacin <=0.12 SUSCEPTIBLE Nitrofurantoin <=16 SUSCEPTIBLE Piperacillin/Tazobacta m <=4 SUSCEPTIBLE Tobramycin <=1 SUSCEPTIBLE Trimethoprim/Sulfa <=20 SUSCEPTIBLE Susceptible [facility] Comment on above: Performed By: #### U RC #### [facility] [address] [place] [address] [employer]: Bala Borges MD [facility] [address] [place] [address] [employer]: Gage Barraza MD Microscopic Urinalysison Bacteria LM Ql (Urine sed) 2+ Abnormal None [facility] Character (U) Urine Reflexed to Culture Abnormal NOT REQ. [facility] Epithelial cells LM.HPF (Urine sed) [#/Area] 0 TO 2 [facility] Interpretation and review of laboratory results Abnormal [facility] Mucus Ql (Urine sed) TRACE Abnormal None [facility] RBC LM.HPF (Urine sed) [#/Area] 2 TO 5 [facility] WBC LM.HPF (Urine sed) [#/Area] 20 TO 50 [facility] UA w/Reflex Cultureon 2024 Bilirubin, SemiQt,Ur Negative Normal NEG [facility] Comment on above: Performed By: #### U MICAO, UAX #### [facility] [address] [place] [address] [employer]: Gage Barraza MD Blood, Urine 3+ Abnormal NEG [facility] Comment on above: Performed By: #### U MICAO, UAX #### [facility] [address] [place] [address] [employer]: Gage Barraza MD Clarity (U) Clear Normal CLEAR [facility] Comment on above: Performed By: #### U MICAO, UAX #### [facility] [address] [place] [address] [employer]: Gage Barraza MD Color (U) Yellow Normal YEL [facility] Comment on above: Performed By: #### U MICAO, UAX #### [facility] [address] [place], [place] [id number] [employer]: Gage Barraza MD Glucose Ql (U) TRACE Abnormal NEG [facility] Comment on above: Performed By: #### U MICAO, UAX #### [facility] [address] [place], [place] 9[address] [employer]: Gage Barraza MD Ketones Ql (U) Negative Normal NEG [facility] Comment on above: Performed By: #### U MICAO, UAX #### [facility] [address] [place] [address] [place]. [place], [place] 7[address] [employer]: Gage Barraza MD Leukocyte esterase Test strip Ql (U) SMALL Abnormal NEG [facility] Comment on above: Performed By: #### U MICAO, UAX #### [facility] [address] [place] [address] [place] [address] [employer]: Gage Barraza MD Nitrite,Ur Positive Abnormal NEG [facility] Comment on above: Performed By: #### U MICAO, UAX #### [facility] [address] [place] [address] [place]. [place], [place] 0510483 [employer]: Gage Barraza MD PH,Ur 6.0 Normal 5.0-9.0 [facility] Comment on above: Performed By: #### U MICAO, UAX #### [facility] [address] [place] [address] [place] [address] [employer]: Gage Barraza MD Protein Ql (U) 1+ mg/dL Abnormal NEG [facility] Comment on above: Performed By: #### U MICAO, UAX #### [facility] [address] [place] [address] [place]. [place], [place] 9[address]83 [employer]: Gage Barraza MD Spec. Browns,Ur 1.025 High 1.010-1.020 [facility] Comment on above: Performed By: #### U LEON, UAX #### [facility] [address] [place] [address] [employer]: Gage Barraza MD Urobilinogen,Ur Normal Normal 0.0-1.0 [facility] Comment on above: Performed By: #### U LEON, UAX #### [facility] [address] [place] [address] [employer]: Gage Barraza MD Urinalysis with Reflex to Cu ltureon 07-20-2024 Bilirubin Ql (U) Negative NEGATIVE [facility] Clarity (U) Clear Clear [facility] Color (U) Yellow Yellow [facility] Glucose Test strip (U) [Mass/Vol] TRACE Abnormal NEGATIVE mg/dL [facility] Hemoglobin Auto test strip Ql (U) 3+ Abnormal NEGATIVE [facility] Interpretation and review of laboratory results Abnormal [facility] Ketones (U) [Mass/Vol] Negative NEGAT ONEIL mg/dL [facility] Leukocyte esterase Test strip Ql (U) SMALL Abnormal NEGATIVE [facility] Nitrite Ql (U) Positive Abnormal NEGATIVE [facility] pH (U) 6 [pH] 5.0 - 9.0 [facility] Protein (U) [Mass/Vol] 1+ Abnormal NEGAT ONEIL mg/dL [facility] Specific gravity (U) [Rel density] 1.025 High 1.010 - 1.020 [facility] Urobilinogen Qn (U) Normal 0.0 - 1. 0 EU/dL [facility] Urinalysis,Microon 5 Bacteria 2+ Abnormal NONE [facility] Comment on above: Performed By: #### U LEON, UAX #### [facility] [address] [place] [address] [employer]: Gage Barraza MD Epithelial cells LM Ql (Urine sed) 0 TO 2 Normal 0-25 [facility] Comment on above: Performed By: #### U MICAO, UAX #### [facility] [address] [place] [address] [employer]: Gage Barraza MD Mucus Strands TRACE Abnormal NONE [facility] Comment on above: Performed By: #### U MICAO, UAX #### [facility] [address] [place] [address] [employer]: Gage Barraza MD Other Observations Urine Reflexed to Culture Abnormal NREQ [facility] Comment on above: Performed By: #### U MICAO, UAX #### [facility] [address] [place], [place] [address] [employer]: Gage Barraza MD Urine RBC's 2 TO 5 Normal 0-2 [facility] Comment on above: Performed By: #### U KATIEO, UAX #### [facility] [address] [place], [place] 8[address]83 [employer]: Gage Barraza MD Urine WBC's 20 TO 50 Normal 0-5 [facility] Comment on above: Performed By: #### U MICAO, UAX #### [facility] [address] [place], [place] 92[address]83 [employer]: Gage Barraza MD Choriogonadotropin.beta subu niton 04-07-2024 HCG.beta subunit Qn m[IU]/mL Normal <5 [facility] Comment on above: Order Comment: Total HCG measurement is performed using the Andre Hudson Access Immunoassay which detects intact HCG and free beta HCG subunit. This test is not indicated for use as a tumor marker. HCG testing is performed using a different test methodology at [facility] than other [facility]. Direct result comparison should only be made within the same method. Performed By: #### 2 1198-7 #### ALFREDO Wagner ([id number]) [facility] ([facility]) [address] [place] [address] Cult,Urineon 04-07-2024 Cult,Urine Specimen Description .URINE Culture NO SIGNIFICANT GROWTH Report Status FINAL 04/07/2024 [facility] Comment on above: Performed By: #### U ####[facility] [place] [address] Lab Director: Bala Borges, [facility] [place] [address] Lab Director: Gage Barraza MD [place] LESS THAN 1 HOURon 2023 [place] LESS THAN 1 HOUR These images are not reportable by radiology and will not be interpreted by Radiologists. [facility] Surgical pathology studyon 1 06-08-2023 Surgical pathology study Pathology report.total SEE COMMENT Surgical Pathology Case: [id number] Authorizing Provider: Tiherry Braun DPM Collected: 04/07/2024 154 Ordering Location: [facility] Received: 04/07/2024 1608 OR Pathologist: [...] and entirely submitted in 3 cassettes. 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 In such cases, another test should be performed with a new specimen in 48-72 hours. If early is suspected clinically in this setting, correlation with quantitative serum b-hCG level is suggested. [facility] has confirmed the use of plasma for this test. This has not been cleared or approved by the U.S. Food and Drug Administration. The FDA has determined that such clearance is not necessary. [facility] HCG Screen, Bloodon 04-06-20 24 HCG Screen, Blood Negative Normal NEG [facility] Comment on above: Result Comment: Spec imens with hCG levels near the threshold of the test (25 mIU/mL) may give a negative or indeterminate result. In such cases, another test should be performed with a new specimen in 48-72 hours. If early is suspected clinically in this setting, correlation with quantitative serum b-hCG level is suggested. [facility] has confirmed the use of plasma for this test. This has not been cleared or approved by the U.S. Food and Drug Administration. The FDA has determined that such clearance is not necessary. Performed By: #### H PRERNA ONEIL UAX #### [facility] [address] [place] [address] [employer]: Gage Barraza MD Microscopic Urinalysison Epithelial cells LM.HPF (Urine sed) [#/Area] 2 TO 5 [facility] RBC LM.HPF (Urine sed) [#/Area] 0 TO 2 [facility] WBC LM.HPF (Urine sed) [#/Area] 5 TO 10 [facility] UA w/Reflex Cultureon 2023 Bilirubin, SemiQt,Ur Negative Normal NEG [facility] Comment on above: Performed By: #### H PRERNA ONIEL UAX #### [facility] [address] [place] [address] [employer]: Gage Barraza MD Blood, Urine Negative Normal NEG [facility] Comment on above: Performed By: #### H PRERNA ONEIL UAX #### [facility] [address] [place], [place] [phone] [employer]: Gage Barraza MD Clarity (U) Clear Normal CLEAR [facility] Comment on above: Performed By: #### H CG, UMICAO, UAX #### [facility] [address] [place], [place] 138[address]83 [employer]: Gage Barraza MD Color (U) Yellow Normal YEL [facility] Comment on above: Performed By: #### H CG, [facility], UAX #### [facility] [address] [place], [place] [address]383 [employer]: [place]age Barraza MD Glucose Ql (U) TRACE Abnormal NEG [facility] Comment on above: Performed By: #### H CG [place], UAX #### [facility] [address] [place] [address] [place]. [place], [place] 4502183 [employer]: Gage Barraza MD Ketones Ql (U) Negative Normal NEG [facility] Comment on above: Performed By: #### H [facility], UAX #### [facility] [address] [place] [address] [employer]utter: Gage Barraza MD Leukocyte esterase Test strip Ql (U) SMALL Abnormal NEG [facility] Comment on above: Performed By: #### H CG [place], UAX #### [facility] [address] [place], [place] 7[address]83 [employer]utter: Gage Barraza MD Nitrite,Ur Negative Normal NEG [facility] Comment on above: Performed By: #### H CGLILIAO, UAX #### [facility] [address] [place], [place] 3441783 [employer]: Gage Barraza MD PH,Ur 6.0 Normal 5.0-9.0 [facility] Comment on above: Performed By: #### H CG, [facility], UAX #### [facility] [address] [place] [address] [employer]: Gage Barraza MD Protein Ql (U) Negative Normal NEG [facility] Comment on above: Performed By: #### H CLARICE FE, UAX #### [facility] [address] [place] [address] [employer]: Gage Barraza MD Spec. Browns,Ur <1.005 Low 1.010-1.020 [facility] Comment on above: Performed By: #### H CLARICE [facility], UAX #### [facility] [address] [place] [address] [place]. [place], [place] 2809983 [employer]: Gage Barraza MD Urobilinogen,Ur Normal Normal 0.0-1.0 [facility] Comment on above: Performed By: #### H CLARICE [facility], UAX #### [facility] [address] [place] [address] [employer]utter: Gage Barraza MD Urinalysis with Reflex to Cu ltureon 04-06-2024 Bilirubin Ql (U) Negative NEGATIVE [facility] Clarity (U) Clear Clear [facility] Color (U) Yellow Yellow [facility] Glucose Test strip (U) [Mass/Vol] TRACE Abnormal NEGATIVE mg/dL [facility] Hemoglobin Auto test strip Ql (U) Negative NEGATIVE [facility] Interpretation and review of laboratory results Abnormal [facility] Ketones (U) [Mass/Vol] Negative NEGAT ONEIL mg/dL [facility] Leukocyte esterase Test strip Ql (U) SMALL Abnormal NEGATIVE [facility] Nitrite Ql (U) Negative NEGATIVE [facility] pH (U) 6.0 [pH] 5.0 - 9.0 [facility] Protein (U) [Mass/Vol] Negative NEGAT ONEIL mg/dL [facility] Specific gravity (U) [Rel density] Low 1.010 - 1.020 [facility] Urobilinogen Qn (U) Normal 0.0 - 1. 0 EU/dL [facility] Urinalysis,Microon 4 Epithelial cells LM Ql (Urine sed) 2 TO 5 Normal 0-25 [facility] Comment on above: Performed By: #### H CGPRERNA, UAX #### [facility] [address] [place] [address] [employer]: Gage Barraza MD Urine RBC's 0 TO 2 Normal 0-2 [facility] Comment on above: Performed By: #### H PRERNA ONEIL UAX #### [facility] [address] [place] [address] [employer]: Gage Barraza MD Urine WBC's 5 TO 10 Normal 0-5 [facility] Comment on above: Performed By: #### H PRERNA ONEIL, UAX #### [facility] [address] [place], [place] 29[address]483 [employer]: Gage Barraza MD HCG, Quanton 03-23-2024 HCG, Quant 1.8 mIU/mL Normal 0-7 [facility] Comment on above: Result Comment: Non-preg premeno <=5 Postmeno <=8 Male <=3 If HCG results do not concur with clinical observations, additional testing to confirm results is recommended. Performed By: #### B HCG ####[facility] [place] [address] Lab Director: Gage Barraza MD HCG, Quantitative, on 03-23-2024 HCG.beta subunit Qn 1.8 m[IU]/mL [facility] Comment on above: Non-preg premeno <=5 Postmeno <=8 Male <=3 If HCG results do not concur with clinical observations, additional testing to confirm results is recommended. [facility] HCG, Quanton 03-21-2024 HCG, Quant 2.2 mIU/mL Normal 0-7 [facility] Comment on above: Result Comment: Non-preg premeno <=5 Postmeno <=8 Male <=3 If HCG results do not concur with clinical observations, additional testing to confirm results is recommended. Performed By: #### B HCG ####[facility] [place] [address] lab Director: Gage Barraza MD HCG, Quantitative, on 03-21-2024 HCG.beta subunit Qn 2.2 m[IU]/mL [facility] Comment on above: Non-preg premeno <=5 Postmeno <=8 Male <=3 If HCG results do not concur with clinical observations, additional testing to confirm results is recommended. [facility] MRSA isol Org specific cx Ql (Nose)Ordered By: Aniyah Hitchcock on 03-20-2024 Interpretation and review of laboratory results Normal [facility] Staphylococcus sp identified Org specific cx Nom (Unsp spec) No Staphylococcus aureus isolated [facility] HCG, Quanton 03-19-2024 HCG, Quant 2.8 mIU/mL Normal 0-7 [facility] Comment on above: Result Comment: Non-preg premeno <=5 Postmeno <=8 Male <=3 If HCG results do not concur with clinical observations, additional testing to confirm results is recommended. Performed By: #### B HCG ####[facility] [place], [place] [address] lab Director: Gage Barraza MD HCG, Quantitative, on 03-19-2024 HCG.beta subunit Qn 2.8 m[IU]/mL [facility] Comment on above: Non-preg premeno <=5 Postmeno <=8 Male <=3 If HCG results do not concur with clinical observations, additional testing to confirm results is recommended. [facility] Choriogonadotropin.beta subu niton 03-18-2024 HCG.beta subunit Qn 5 m[IU]/mL High <5 [facility] Comment on above: Order Comment: Total HCG measurement is performed using the Andre Hudson Access Immunoassay which detects intact HCG and free beta HCG subunit. This test is not indicated for use as a tumor marker. HCG testing is performed using a different test methodology at [facility] than other [facility]. Direct result comparison should only be made within the same method. Result Comment: Low- level positive HCG results can be seen in early , in terri- or post-menopausal females due to normal pituitary HCG production, or with analytic interference. Repeat testing in 48-72 hours can aid in assessing for as results should double in this time period. FSH measurement is recommended in terri- or post-menopausal females as concurrent elevation of FSH can support pituitary production as the source of the HCG elevation. Performed By: #### 2 1198-7 #### ALFREDO [place] ([id number]) [facility] ([facility]) [address] [place] [address] HCG ( test) IA.rapi d Ql (U)Ordered By: Ailyn Valentino on 03-18-2024 HCG ( test) Ql (U) Positive Abnormal NEGATIVE [facility] Comment on above: Corrected result: Pr eviously reported as NEGATIVE (reference range: NEGATIVE) on 03/18/2024 at 1232 EST. Interpretation and review of laboratory results Abnormal [facility] HCG ( test) IA.rapi d Ql (U)on 03-18-2024 HCG ( test) Ql (U) Positive Abnormal NEGATIVE [facility] Comment on above: Result Comment: Akanksha ected result: Previously reported as NEGATIVE (reference range: NEGATIVE) on 03/18/2024 at 1232 EST. Performed By: #### 8 0384-1 #### ALFREDO Wagner ([id number]) [facility] ([facility]) [address] [place] [address] HCG.beta subunit Qnon 2023 Interpretation and review of laboratory results Abnormal [facility] Total HCG measuremen t is performed using the Andre Hudson Access Immunoassay which detects intact HCG and free beta HCG subunit. This test is not indicated for use as a tumor marker. HCG testing is performed using a different test methodology at [facility] than other [facility]. Direct result comparison should only be made within the same method. [facility] Staphylococcus aureus.methic illin resistant isolateon 03-18-2024 MRSA isol Org specific cx Ql (Nose) Test: Staphylococcus aureus/MRSA colonization, Culture Specimen Source: Nares/Axilla/Groin Specimen Type: Swab Specimen Date: 03/18/2024 1217 Result Date: 03/20/2024 0736 Result Status: Final result Abnormal: No Resulting Lab: [facility] [id number] [place] [address] CULTURE No Staphylococcus aureus isolated Normal [facility] Comment on above: Performed By: #### 5 2969-3 #### MICHOACANO Escalona ([id number]) [facility] ([facility]) [address] [place] [address] hCG, quantitative, on 03-18-2024 HCG.beta subunit Qn 5 m[IU]/mL [facility] Comment on above: Low-level positive H CG results can be seen in early , in terri- or post-menopausal females due to normal pituitary HCG production, or with analytic interference. Repeat testing in 48-72 hours can aid in assessing for as results should double in this time period. FSH measurement is recommended in terri- or post-menopausal females as concurrent elevation of FSH can support pituitary production as the source of the HCG elevation. CT ANKLE LEFT WO CONTRASTon 10-16-2023 CT [...] Aaron Ladd MD 10/16/23 Final result Normal [facility] CT Ankle - left WO contrasto n 10-16-2023 1. 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 2. Up to 6 mm interface widening about the cancellous screw within the lateral talus suggesting loosening. [facility] RIS CONSOLIDATED EXAMINATION: CT OF THE LEFT [...] soft tissue mass or fluid collection identified. [facility] Aaron Aguiar MD - 10/16/2023 EXAMINATION: CT [...] screw within the lateral talus suggesting loosening. [facility] CT Ankle - left WO contrastO rdered By: Aaron Ladd on 10-16-2023 [employer] Work Phone: CT Ankle - left WO contrasto n 10-14-2023 Radiology Study observation (narrative) [facility] XR Ankle - left 2 Viewson Postoperative change as detailed. [facility] CONSOLIDATED EXAMINATION: XRAY VIEWS OF THE LEFT ANKLE 09/13/2023 2:38 pm COMPARISON: September 12, 2022 HISTORY: ORDERING SYSTEM PROVIDED HISTORY: Left ankle pain, unspecified chronicity FINDINGS: Stable hardware distal tibia and talus with new hardware fusing the tibiotalar articulation. No hardware failure or complication demonstrated. No acute osseous abnormality. Soft tissues unremarkable. [facility] CONSOLIDATED Nirmal Haskins DO - 09/14/2023 EXAMINATION: XRAY VIEWS OF THE LEFT ANKLE 09/13/2023 2:38 pm COMPARISON: September 12, 2022 HISTORY: ORDERING SYSTEM PROVIDED HISTORY: Left ankle pain, unspecified chronicity FINDINGS: Stable hardware distal tibia and talus with new hardware fusing the tibiotalar articulation. No hardware failure or complication demonstrated. No acute osseous abnormality. Soft tissues unremarkable. IMPRESSION: Postoperative change as detailed. [facility] Ank[facility] - left 2 ViewsOrder ed By: Nirmal Haskins on 09-14-2023 [facility] [employer] Work Phone: XR Ankle - left 2 Viewson Radiology Study observation (narrative) [facility] CBC with Auto Differentialon 09-05-2023 Basophils (Bld) [#/Vol] 0.04 10*3/uL [facility] Basophils/100 WBC (Bld) 0 % 0 - 2 % [facility] Eosinophils (Bld) [#/Vol] 0.12 10*3/uL [facility] Eosinophils/100 WBC (Bld) 1 % 1 - 4 % [facility] Erythrocyte distribution width (RBC) [Ratio] 13.6 % 11.8 - 14.4 % [facility] Hematocrit (Bld) [Volume fraction] 40.8 % 36.3 - 47.1 % [facility] Hemoglobin (Bld) [Mass/Vol] 13.8 g/dL 11.9 - 15.1 g/dL [facility] Immature granulocytes (Bld) [#/Vol] 0.03 10*3/uL [facility] Immature granulocytes/100 WBC (Bld) 0 % 0 [facility] Interpretation and review of laboratory results Abnormal [facility] Lymphocytes/100 WBC (Bld) 24 % Low 25 - 45 % [facility] Lymphocytes/100 WBC (Bld) 2.51 % [facility] MCH (RBC) [Entitic mass] 28.5 pg 25.2 - 33.5 pg [facility] MCHC (RBC) [Mass/Vol] 33.8 g/dL 28.4 - 34.8 g/dL [facility] MCV (RBC) [Entitic vol] 84.1 fL 82.6 - 102.9 fL [facility] Monocytes/100 WBC (Bld) 8 % 2 - 8 % [facility] Monocytes/100 WBC (Bld) 0.80 % [facility] Neutrophils/100 WBC (Bld) 67 % High 34 - 64 % [facility] Nucleated RBC/100 WBC (Bld) [Ratio] 0.0 % 0.0 per 100 WBC [facility] Platelet mean volume (Bld) [Entitic vol] 10.1 fL 8.1 - 13.5 fL [facility] Platelets (Bld) [#/Vol] 418 10*3/uL [facility] RBC (Bld) [#/Vol] 4.85 10*6/uL 3.95 - 5.1 1 m/uL [facility] Segmented neutrophils/100 WBC (Bld) 7.14 % [facility] WBC other (Bld) [#/Vol] 10.6 [facility] Vitamin D 25 Hydroxyon 09-04 25-hydroxyvitamin D3 [Mass/Vol] 26.6 ng/mL Low 30.0 - 100.0 ng/mL [facility] Comment on above: Reference Range: Vitamin D status Range Deficiency <20 ng/mL Mild Deficiency 20-30 ng/mL Sufficiency 30-100 ng/mL Toxicity >100 ng/mL Interpretation and review of laboratory results Abnormal [facility] XR hip RT min 2V(w/wo pelvis )*on 07-26-2023 XR hip RT min 2V(w/wo pelvis)* [facility] [address] [place] [address] XRay Report Signed Patient: Blanka Farias MR#: [id number] : 2000 Acct:[id number] Age/Sex: 22 / F ADM Date: 07/26/23 Loc: [facility] Room: Type: [facility] Attending Dr: Hunter Richards DO Copies to: Hunter Richards DO Ordering Provider: Hutner Richards DO Date of Service: 07/26/23 XR/XR hip RT min 2V(w/wo pelvis)*: M25.551 - Pain in right hip RIGHT HIP - 2 views: CLINICAL HISTORY: Right hip pain for months. COMPARISON: None FINDINGS: No acute bony process. Joint spaces appear maintained. No bony erosions. XR/XR hip RT min 2V(w/wo pelvis)* IMPRESSION: NO ACUTE BONY PROCESS.. Impression dictated by: Az Little Jr., D.O.07/26/2023 3:46 PM Dictation Location: [place] [address] Transcribed By: [facility] 07/26/23 1546 Dictated By: Az Little Jr, DO 07/26/23 1540 Signed By: 07/26/23 1546 Normal [facility] Urinalysis with Microscopico n 08-29-2022 Bacteria, UA 1+ Abnormal None [facility] [employer] Bilirubin Urine Negative NEGATIVE [facility] Color, UA Yellow Yellow [facility] Epithelial Cells UA 10 TO 20 [facility] [employer] [facility] Glucose Auto test strip (U) [Mass/Vol] Negative NEGATIVE [facility] Interpretation and review of laboratory results Abnormal [facility] Ketones (U) [Mass/Vol] Negative NEGATIVE [facility] Leukocyte esterase Auto test strip Ql (U) MODERATE Abnormal NEGATIVE [facility] Nitrite Auto test strip Ql (U) Negative NEGATIVE [facility] Protein (U) [Mass/Vol] 6.0 mg/dL 5.0 - 9.0 [facility] Protein (U) [Mass/Vol] Negative NEGATIVE [facility] RBC clumps Auto (Urine sed) [#/Area] 0 TO 2 [facility] [employer] Specific Browns, UA Low 1.010 - 1.020 [facility] [employer] Turbidity UA SLIGHTLY CLOUDY Abnormal Clear [facility] [employer] Urine Hgb Negative NEGATIVE [facility] Urobilinogen, Urine Normal Normal [facility] WBC, UA 20 TO 50 [facility] XR WRIST LEFT (MIN 3 VIEWS)o n 06-20-2022 Normal wrist radiographs [facility] CONSOLIDATED EXAMINATION: XRAY VIEWS OF THE LEFT WRIST 06/20/2022 3:55 pm COMPARISON: None. HISTORY: ORDERING SYSTEM PROVIDED HISTORY: Pain FINDINGS: Carpal bones and alignment are maintained. Distal radius and ulna are intact. No acute fracture or dislocation. [facility] CONSOLIDATED Nirmal Haskins DO - 06/20/2022 EXAMINATION: XRAY VIEWS OF THE LEFT WRIST 06/20/2022 3:55 pm COMPARISON: None. HISTORY: ORDERING SYSTEM PROVIDED HISTORY: Pain FINDINGS: Carpal bones and alignment are maintained. Distal radius and ulna are intact. No acute fracture or dislocation. IMPRESSION: Normal wrist radiographs [facility] Work Phone: Radiology Study observation (narrative) [facility] [employer] Work Phone: XR WRIST LEFT (MIN 3 VIEWS)O rdered By: Nirmal Haskins on 06-20-2022 [facility] [employer] Work Phone: Ara 03-09-2022 MELIDA Office Visit (NISHI ) BLANKA FARIAS ([id number]) 4 F Date Time Provider Department 03/09/22 [...] ? Later revised by Dr. 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 X-ray reviewed from RIGHT ANKLE consistent [...] [place] (more content not included)... Normal [facility] XR WRIST RIGHT (MIN 3 VIEWS) on 03-09-2022 Normal wrist radiographs [facility] CONSOLIDATED EXAMINATION: XRAY VIEWS OF THE RIGHT WRIST 03/07/2022 2:33 pm COMPARISON: None. HISTORY: ORDERING SYSTEM PROVIDED HISTORY: Right wrist pain FINDINGS: Carpal bones and alignment are maintained. Distal radius and ulna are intact. No acute fracture or dislocation. [facility] RIS Nirmal Flores DO - 03/09/2022 EXAMINATION: XRAY VIEWS OF THE RIGHT WRIST 03/07/2022 2:33 pm COMPARISON: None. HISTORY: ORDERING SYSTEM PROVIDED HISTORY: Right wrist pain FINDINGS: Carpal bones and alignment are maintained. Distal radius and ulna are intact. No acute fracture or dislocation. IMPRESSION: Normal wrist radiographs [employer] Work Phone: XR WRIST RIGHT (MIN 3 VIEWS) Ordered By: Nirmal Haskins on 03-09-2022 [employer] Work Phone: XR WRIST RIGHT (MIN 3 VIEWS) on 03-07-2022 Radiology Study observation (narrative) [employer] Work Phone: Comprehensive Metabolic Pane crystal 02-19-2022 Albumin [Mass/Vol] 4.9 g/dL 3.5 - 5.2 g/dL [facility] Albumin/Globulin [Mass ratio] 1.5 {ratio} 1.0 - 2.5 [facility] ALP (Bld) [Catalytic activity/Vol] 64 U/L 35 - 104 U/L [facility] ALT [Catalytic activity/Vol] 16 U/L 5 - 33 U/L [facility] Anion gap [Moles/Vol] 13 mmol/L 9 - 17 mmol/L [facility] AST [Catalytic activity/Vol] 27 U/L NINF - 32 U/L [facility] Bilirubin [Mass/Vol] 0.3 mg/dL 0.3 - 1 .2 mg/dL [facility] Calcium [Mass/Vol] 9.6 mg/dL 8.6 - 10. 4 mg/dL [facility] Chloride [Moles/Vol] 103 mmol/L 98 - 10 7 mmol/L [facility] CO2 [Moles/Vol] 25 mmol/L 20 - 31 mmol/L [facility] Creatinine [Mass/Vol] 0.59 mg/dL 0.50 - 0.90 mg/dL [facility] GFR/1.73 sq M.predicted MDRD (S/P/Bld) [Vol rate/Area] - PINF [facility] Comment on above: Effective Jan 29, 2022 [...] [Mass/Vol] 75 mg/dL 70 - 99 mg/dL [facility] Interpretation and review of laboratory results Abnormal [facility] Potassium [Moles/Vol] 3.8 mmol/L 3.7 - 5.3 mmol/L [facility] Protein [Mass/Vol] 8.1 g/dL 6.4 - 8.3 g/dL [facility] Sodium [Moles/Vol] 141 mmol/L 135 - 144 mmol/L [facility] Urea nitrogen (BldV) [Mass/Vol] 15 mg/dL 6 - 20 mg/dL [facility] Urea nitrogen/Creatinine (Bld) [Mass ratio] 25 High 9 - 20 [facility] Urinalysis with Microscopico n 02-19-2022 Bacteria, UA 1+ Abnormal None [facility] Bilirubin Urine Negative NEGATIVE [facility] Color, UA Yellow Yellow [facility] Epithelial Cells UA 0 TO 2 [facility] Glucose, Ur TRACE Abnormal NEGATIVE [facility] Interpretation and review of laboratory results Abnormal [facility] Ketones Ql (U) Negative NEGATIVE [facility] Leukocyte esterase Test strip Ql (U) TRACE Abnormal NEGATIVE [facility] Nitrite, Urine Negative NEGATIVE [facility] pH, UA 6.0 5.0 - 9.0 [facility] Protein, UA TRACE Abnormal NEGATIVE [facility] RBC, UA 50 TO 100 [facility] Specific Browns, UA 1.020 1.010 - 1.020 [facility] Turbidity UA SLIGHTLY CLOUDY Abnormal Clear [facility] Urine Hgb 3+ Abnormal NEGATIVE [facility] Urobilinogen, Urine Normal Normal [facility] WBC, UA 5 TO 10 [facility] CNOVon 02-07-2022 CNOV Office Visit (LOORRM ) AVRILMATHEUSA ([id number]) 4 F Date Time Provider Department 02/07/22 11:00 AM RK RENDON During your visit today, we recorded the following information about you: Rk Rendon DPM 02/07/2022 2:48 PM Signed [facility] Department of Orthopedics [facility] Orthopedic Surgery Name: Blanka Farias Date of [...] Radiographs: Right ankle radiographs from 01/12/2022 from [facility] reveal unusual shape to the dorsal talar dome with almost some lateral tilt A right ankle MRI performed on 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/2022 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 Bertha Duncan Basophils/100 WBC (Bld) 0.5 % Normal 0.2-2.0 [facility] Comment on above: Performed By: #### U MICRO UARMICR #### [facility] [address] [place] [address] Dr. Bertha Duncan EO # 0.3 103/ul Normal 0.0-0.7 [facility] Comment on above: Performed By: #### U MICRO UARMICR #### [facility] [address] [place] [address] Dr. Bertha Duncan Eosinophils/100 WBC (Bld) 2.1 % Normal 0.9-7.0 [facility] Comment on above: Performed By: #### U MICRO UARMICR #### [facility] [address] [place] [address] Dr. Bertha Duncan Erythrocyte distribution width (RBC) [Ratio] 13.8 % Normal 11.0-15.0 [facility] Comment on above: Performed By: #### U MICRO, UARMICR #### [facility] [address] [place] [address] [address] Bertha Duncan Hematocrit (Bld) [Volume fraction] 39.1 % Normal 36.0-48.0 [facility] Comment on above: Performed By: #### U MICRO, UARMICR #### [facility] [address] [place] [address] [address] Bertha Duncan Hemoglobin (Bld) [Mass/Vol] 13.1 g/dL Normal 12.0-16.0 [facility] Comment on above: Performed By: #### U MICRO, UARMICR #### [facility] [address] [place] [address] [address] Bertha Duncan IG # 0.05 10e3/ul Critically high 0.00-0.03 [facility] Comment on above: Performed By: #### U MICRO, UARMICR #### [facility] [address] [place] [address] [address] Bertha Duncan IG % 0.4 % Normal 0.0-0.5 [facility] Comment on above: Performed By: #### U MICRO, UARMICR #### [facility] [address] [place] [address] [address] Bertha Duncan LYMPH # 3.1 103/ul Normal 1.2-3.8 [facility] Comment on above: Performed By: #### U MICRO, UARMICR #### [facility] [address] [place] [address] [address] Bertha Duncan Lymphocytes/100 WBC (Bld) 23.9 % Normal 20.5-60.0 [facility] Comment on above: Performed By: #### U MICRO, UARMICR #### [facility] [address] [place] [address] [address] Bertha Duncan MANUAL DIFF REQ NO Normal [facility] Comment on above: Performed By: #### U MICRO, UARMICR #### [facility] [address] [place] [address] Dr. Bertha Duncan MCH (RBC) [Entitic mass] 27.1 pg Normal 26.7-34.0 [facility] Comment on above: Performed By: #### U MICRO, UARMICR #### [facility] [address] [place] [address] Dr. Bertha Duncan MCHC (RBC) [Mass/Vol] 33.5 g/dL Normal 29.9-35.2 [facility] Comment on above: Performed By: #### U MICRO, UARMICR #### [facility] [address] [place] [address] Dr. Bertha Duncan MCV (RBC) [Entitic vol] 81.0 fL Normal 81.0-99.0 [facility] Comment on above: Performed By: #### U MICRO, UARMICR #### [facility] [address] [place] [address] Dr. Bertha Duncan MONO # 0.8 103/ul Normal 0.3-0.8 [facility] Comment on above: Performed By: #### U MICRO, UARMICR #### [facility] [address] [place] [address] Dr. Bertha Duncan Monocytes/100 WBC (Bld) 5.8 % Normal 1.7-12.0 [facility] Comment on above: Performed By: #### U MICRO, UARMICR #### [facility] [address] [place] [address] Dr. Bertha Duncan NEUT # 8.7 103/ul Critically high 1.4-6.5 [facility] Comment on above: Performed By: #### U MICRO, UARMICR #### [facility] [address] [place] [address] Dr. Bertha Duncan Neutrophils/100 WBC (Bld) 67.3 % Normal 43.0-75.0 [facility] Comment on above: Performed By: #### U MICRO, UARMICR #### [facility] [address] [place], [place] [id number] Dr. Bertha Duncan Platelet mean volume (Bld) [Entitic vol] 9.8 fL Normal 9.5-13.5 [facility] Comment on above: Performed By: #### U MICRO, UARMICR #### [facility] [address] [place] [address] Dr. Bertha Duncan PLT 369 103/ul Normal 150-450 [facility] Comment on above: Performed By: #### U MICRO, UARMICR #### [facility] [address] [place] [address] Dr. Bertha Duncan RBC 4.83 106/ul Normal 4.20-5.40 [facility] Comment on above: Performed By: #### U MICRO, UARMICR #### [facility] [address] [place] [address] Dr. Bertha Duncan WBC 12.9 103/ul Critically high 4.0-11.0 [facility] Comment on above: Performed By: #### U MICRO, UARMICR #### [facility] [address] [place] [address] Dr. Bertha Duncan CULTURE URINEon 01-12-2022 CULTURE URINE Culture Observations : HEAVY GROWTH OF MIXED GENITAL BEAU. NO POTENTIAL PATHOGENS SEEN. Normal [facility] Comment on above: Performed By: #### U MICRO, UARMICR #### [facility] [address] [place] [address] Dr. Bertha Duncan PROF 14(COMP METB)on 022 Albumin [Mass/Vol] 4.1 g/dL Normal 3.4-5.0 [facility] Comment on above: Performed By: #### C MP #### [facility] [address] [place] [address] Dr. Bertha Duncan Albumin/Globulin [Mass ratio] 1.0 {ratio} Normal [facility] Comment on above: Performed By: #### C MP #### [facility] [address] [place] [address] Dr. Bertha Duncan ALP [Catalytic activity/Vol] 57 U/L Normal 46-116 [facility] Comment on above: Performed By: #### C MP #### [facility] [address] [address] [address] Bertha Duncan ALT [Catalytic activity/Vol] 19 U/L Normal 14-59 [facility] Comment on above: Performed By: #### C MP #### [facility] [address] [address] [address] Bertha Duncan Anion gap [Moles/Vol] 12.5 mmol/L Normal [facility] Comment on above: Performed By: #### C MP #### [facility] [address] [address] [address] Bertha Duncan AST [Catalytic activity/Vol] 23 U/L Normal 15-37 [facility] Comment on above: Performed By: #### C MP #### [facility] [address] [address] [address] Bertha Duncan Bilirubin [Mass/Vol] 0.2 mg/dL Normal 0.2-1.0 [facility] Comment on above: Performed By: #### C MP #### [facility] [address] [address] [address] Bertha Duncan Calcium [Mass/Vol] 9.3 mg/dL Normal 8.5-10.1 [facility] Comment on above: Performed By: #### C MP #### [facility] [address] [address] [address] Bertha Duncan Chloride [Moles/Vol] 104 mmol/L Normal 98-107 [facility] Comment on above: Performed By: #### C MP #### [facility] [address] [place] [address] [address] Bertha Duncan CO2 [Moles/Vol] 23.2 mmol/L Normal 21.0-32.0 [facility] Comment on above: Performed By: #### C MP #### [facility] [address] [address] [address] Bertha Duncan Creatinine [Mass/Vol] 0.62 mg/dL Normal 0.55-1.02 [facility] Comment on above: Performed By: #### C MP #### [facility] [address] [address] [address] Bertha Duncan EGFR-AF CAMEROONIAN >60 Normal >=60 [facility] Comment on above: Performed By: #### C MP #### [facility] [address] [place] [address] Dr. Bertha Duncan EGFR-NON AF CAMEROONIAN >60 Normal >=60 [facility] Comment on above: Performed By: #### C MP #### [facility] [address] [address] [address] Bertha Duncan Globulin (S) [Mass/Vol] 4.0 g/dL Normal [facility] Comment on above: Performed By: #### C MP #### [facility] [address] [place] [address] Dr. Bertha Duncan Glucose [Mass/Vol] 83 mg/dL Normal 74-106 [facility] Comment on above: Performed By: #### C MP #### [facility] [address] [address] [address] Bertha Duncan Potassium [Moles/Vol] 3.7 mmol/L Normal 3.5-5.1 [facility] Comment on above: Performed By: #### C MP #### [facility] [address] [place] [address] Dr. Bertha Duncan Protein [Mass/Vol] 8.1 g/dL Normal 6.4-8.2 [facility] Comment on above: Performed By: #### C MP #### [facility] [address] [place] [address] [address] Bertha Duncan Sodium [Moles/Vol] 136 mmol/L Normal 136-145 [facility] Comment on above: Performed By: #### C MP #### [facility] [address] [place] [address] Dr. Bertha Duncan Urea nitrogen [Mass/Vol] 16.0 mg/dL Normal 6.4-19.3 [facility] Comment on above: Performed By: #### C MP #### [facility] [address] [place] [address] Dr. Bertha Duncan Urea nitrogen/Creatinine [Mass ratio] 25.8 mg/mg Normal [facility] Comment on above: Performed By: #### C MP #### [facility] [address] [place] [address] Dr. Bertha Duncan UA RANDOM W/MICROSCOPICon BACTERIA NONE SEEN Normal NONE SEEN [facility] Comment on above: Performed By: #### U AMIC #### [facility] [address] [place] [address] Dr. Bertha Duncan Bilirubin Ql (U) Negative Normal NEGATIVE [facility] Comment on above: Performed By: #### U AMIC #### [facility] [address] [place] [address] Dr. Bertha Duncan CAST NONE SEEN Normal NONE SEEN [facility] Comment on above: Performed By: #### U AMIC #### [facility] [address] [place] [address] Dr. Bertha Duncan Clarity (U) CLEAR Normal CLEAR [facility] Comment on above: Performed By: #### U AMIC #### [facility] [address] [place] [address] Dr. Bertha Duncan Color (U) LT. YELLOW Normal YELLOW [facility] Comment on above: Performed By: #### U AMIC #### [facility] [address] [place] [address] Dr. Bertha Duncan Crystals LM Nom (Urine sed) NONE SEEN Normal NONE SEEN [facility] Comment on above: Performed By: #### U AMIC #### [facility] [address] [place] [address] Dr. Bertha Duncan Epithelial cells LM Ql (Urine sed) MODERATE Abnormal NONE SEEN /RARE [facility] Comment on above: Performed By: #### U AMIC #### [facility] [address] [place] [address] Dr. Bertha Duncan Glucose Ql (U) Negative Normal NEGATIVE [facility] Comment on above: Performed By: #### U AMIC #### [facility] [address] [place] [address] Dr. Bertha Duncan Hemoglobin Ql (U) Negative Normal NEGATIVE [facility] Comment on above: Performed By: #### U AMIC #### [facility] [address] [address] [address] Bertha Duncan Ketones Ql (U) Negative Normal NEGATIVE [facility] Comment on above: Performed By: #### U AMIC #### [facility] [address] [address] [address] Bertha Duncan LEUKOCYTES TRACE Abnormal NEGATIVE [facility] Comment on above: Performed By: #### U AMIC #### [facility] [address] [address] [address] Bertha Duncan MUCOUS NONE SEEN Normal NONE SEEN [facility] Comment on above: Performed By: #### U AMIC #### [facility] [address] [address] [address] Bertha Duncan Nitrite Ql (U) Negative Normal NEGATIVE [facility] Comment on above: Performed By: #### U AMIC #### [facility] [address] [address] [address] Bertha Duncan pH (U) 6.0 [pH] Normal 5-9 [facility] Comment on above: Performed By: #### U AMIC #### [facility] [address] [place] [address] Dr. Bertha Duncan RBC NONE SEEN Abnormal 0-2 [facility] Comment on above: Performed By: #### U AMIC #### [facility] [address] [place] [address] Dr. Bertha Duncan SPEC GRAVITY 1.005 Normal 1.005-<=1.0 25 [facility] Comment on above: Performed By: #### U AMIC #### [facility] [address] [address] [address] Bertha Duncan UA PROTEIN Negative Normal NEGATIVE/ TRACE [facility] Comment on above: Performed By: #### U AMIC #### [facility] [address] [place] [address] Dr. Bertha Duncan Urobilinogen Qn (U) 0.2 {Maine'U}/dL Normal 0.2 - 1. 0 [facility] Comment on above: Performed By: #### U AMIC #### [facility] [address] [address] [address] Bertha Duncan WBC 0-2 Abnormal NONE SEEN [facility] Comment on above: Performed By: #### U AMIC #### [facility] [address] [address] [address] Bertha Duncan Urinalysis with Microscopico n 01-02-2022 Bacteria, UA 1+ Abnormal None [facility] Bilirubin Urine Negative NEGATIVE [facility] Color, UA Yellow Yellow [facility] Epithelial Cells UA 5 TO 10 [facility] Glucose, Ur 1+ Abnormal NEGATIVE [facility] Interpretation and review of laboratory results Abnormal [facility] Ketones Ql (U) Negative NEGATIVE [facility] Leukocyte esterase Test strip Ql (U) MODERATE Abnormal NEGATIVE [facility] Nitrite, Urine Negative NEGATIVE [facility] pH, UA 6.5 5 - 9 [facility] Protein, UA Negative NEGATIVE [facility] RBC, UA 0 TO 2 [facility] Specific Browns, UA 1.010 1.01 - 1.02 [facility] Turbidity UA SLIGHTLY CLOUDY Abnormal Clear [facility] Urine Hgb Negative NEGATIVE [facility] Urobilinogen, Urine Normal Normal [facility] WBC, UA 5 TO 10 [facility] CULTURE URINEon 11-21-2021 CULTURE URINE Culture Observations : NO GROWTH. Normal [facility] Comment on above: Performed By: #### U MICRO, UARMICR #### [facility] [address] [address] [address] Bertha Duncan PROF CHEM 8 (BAS METB)on Anion gap [Moles/Vol] 11.2 mmol/L Normal [facility] Comment on above: Performed By: #### U MICRO, UARMICR #### [facility] [address] [address] [address] Bertha Duncan Calcium [Mass/Vol] 9.0 mg/dL Normal 8.5-10.1 [facility] Comment on above: Performed By: #### U MICRO, UARMICR #### [facility] [address] [address] [address] Bertha Duncan Chloride [Moles/Vol] 106 mmol/L Normal 98-107 [facility] Comment on above: Performed By: #### U MICRO, UARMICR #### [facility] [address] [address] [address] Bertha Duncan CO2 [Moles/Vol] 25.7 mmol/L Normal 21.0-32.0 [facility] Comment on above: Performed By: #### U MICRO, UARMICR #### [facility] [address] [place] [address] Dr. Bertha Duncan Creatinine [Mass/Vol] 0.74 mg/dL Normal 0.55-1.02 [facility] Comment on above: Performed By: #### U MICRO, UARMICR #### [facility] [address] [address] [address] Bertha Duncan EGFR-AF CAMEROONIAN >60 Normal >=60 [facility] Comment on above: Performed By: #### U MICRO, UARMICR #### [facility] [address] [place] [address] Dr. Bertha Duncan EGFR-NON AF CAMEROONIAN >60 Normal >=60 [facility] Comment on above: Performed By: #### U MICRO, UARMICR #### [facility] [address] [address] [address] Bertha Duncan Glucose [Mass/Vol] 93 mg/dL Normal 74-106 [facility] Comment on above: Performed By: #### U MICRO, UARMICR #### [facility] [address] [address] [address] Bertha Duncan Potassium [Moles/Vol] 3.9 mmol/L Normal 3.5-5.1 [facility] Comment on above: Performed By: #### U MICRO, UARMICR #### [facility] [address] [place] [address] Dr. Bertha Duncan Sodium [Moles/Vol] 139 mmol/L Normal 136-145 [facility] Comment on above: Performed By: #### U MICRO, UARMICR #### [facility] [address] [place] [address] Dr. Bertha Duncan Urea nitrogen [Mass/Vol] 8.0 mg/dL Normal 6.4-19.3 [facility] Comment on above: Performed By: #### U MICRO, UARMICR #### [facility] [address] [address] [address] Bertha Duncan Urea nitrogen/Creatinine [Mass ratio] 10.8 mg/mg Normal [facility] Comment on above: Performed By: #### U MICRO, UARMICR #### [facility] [address] [place] [address] Dr. Bertha Duncan PROTEIN RAND URINEon 022 UR PROT 12.1 mg/dL Critically high <=11.9 [facility] Comment on above: Performed By: #### P ROTU #### [facility] [address] [place] [address] Dr. Bertha Duncan UA RANDOMon 11-21-2021 Bilirubin Ql (U) Negative Normal NEGATIVE [facility] Comment on above: Performed By: #### U A #### [facility] [address] [place] [address] Dr. Bertha Duncan Clarity (U) CLEAR Normal CLEAR [facility] Comment on above: Performed By: #### U A #### [facility] [address] [place] [address] Dr. Bertha Duncan Color (U) YELLOW Normal YELLOW [facility] Comment on above: Performed By: #### U A #### [facility] [address] [address] [address] Bertha Duncan Glucose Ql (U) 500 mg/dl Abnormal NEGATIVE [facility] Comment on above: Performed By: #### U A #### [facility] [address] [place] [address] Dr. Bertha Duncan Hemoglobin Ql (U) Negative Normal NEGATIVE [facility] Comment on above: Performed By: #### U A #### [facility] [address] [place] [address] Dr. Bertha Duncan Ketones Ql (U) Negative Normal NEGATIVE [facility] Comment on above: Performed By: #### U A #### [facility] [address] [place] [address] Dr. Bertha Duncan LEUKOCYTES TRACE Abnormal NEGATIVE [facility] Comment on above: Performed By: #### U A #### [facility] [address] [place] [address] Dr. Bertha Duncan Nitrite Ql (U) Negative Normal NEGATIVE [facility] Comment on above: Performed By: #### U A #### [facility] [address] [place] [address] Dr. Bertha Duncan pH (U) 6.0 [pH] Normal 5-9 [facility] Comment on above: Performed By: #### U A #### [facility] [address] [place] [address] Dr. Bertha Duncan SPEC GRAVITY 1.015 Normal 1.005-<=1.0 25 [facility] Comment on above: Performed By: #### U A #### [facility] [address] [place] [address] Dr. Bertha Duncan UA PROTEIN Negative Normal NEGATIVE/ TRACE [facility] Comment on above: Performed By: #### U A #### [facility] [address] [place] [address] Dr. Bertha Duncan Urobilinogen Qn (U) 0.2 {[place]'U}/dL Normal 0.2 - 1. 0 [facility] Comment on above: Performed By: #### U A #### [facility] [address] [place] [address] Dr. Bertha Duncan CULTURE URINEon 11-13-2021 CULTURE [...] F Oxacillin >=4 R F Normal [facility] Comment on above: Performed By: #### U MICRO, UARMICR #### [facility] [address] [place] [address] Dr. Bertha Duncan CBC AUTO DIFFon 11-10-2021 BASO # 0.1 103/ul Normal 0.0-0.1 [facility] Comment on above: Performed By: #### C BC #### [facility] [address] [place] [address] Dr. Bertha Duncan Basophils/100 WBC (Bld) 0.5 % Normal 0.2-2.0 [facility] Comment on above: Performed By: #### C BC #### [facility] [address] [place] [address] Dr. Bertha Duncan EO # 0.2 103/ul Normal 0.0-0.7 [facility] Comment on above: Performed By: #### C BC #### [facility] [address] [place] [address] Dr. Bertha Duncan Eosinophils/100 WBC (Bld) 1.9 % Normal 0.9-7.0 [facility] Comment on above: Performed By: #### C BC #### [facility] [address] [place] [address] Dr. Bertha Duncan Erythrocyte distribution width (RBC) [Ratio] 12.2 % Normal 11.0-15.0 [facility] Comment on above: Performed By: #### C BC #### [facility] [address] [place] [address] Dr. Bertha Duncan Hematocrit (Bld) [Volume fraction] 39.0 % Normal 36.0-48.0 [facility] Comment on above: Performed By: #### C BC #### [facility] [address] [place] [address] Dr. Bertha Duncan Hemoglobin (Bld) [Mass/Vol] 12.7 g/dL Normal 12.0-16.0 [facility] Comment on above: Performed By: #### C BC #### [facility] [address] [place] [address] Dr. Bertha Duncan IG # 0.02 10e3/ul Normal 0.00-0.03 [facility] Comment on above: Performed By: #### C BC #### [facility] [address] [place] [address] Dr. Bertha Duncan IG % 0.2 % Normal 0.0-0.5 [facility] Comment on above: Performed By: #### C BC #### [facility] [address] [place] [address] Dr. Bertha Duncan LYMPH # 3.1 103/ul Normal 1.2-3.8 [facility] Comment on above: Performed By: #### C BC #### [facility] [address] [place] [address] Dr. Bertha Duncan Lymphocytes/100 WBC (Bld) 29.9 % Normal 20.5-60.0 [facility] Comment on above: Performed By: #### C BC #### [facility] [address] [place] [address] Dr. Bertha Duncan MANUAL DIFF REQ NO Normal [facility] Comment on above: Performed By: #### C BC #### [facility] [address] [place] [address] Dr. Bertha Duncan MCH (RBC) [Entitic mass] 28.0 pg Normal 26.7-34.0 [facility] Comment on above: Performed By: #### C BC #### [facility] [address] [place] [address] Dr. Bertha Duncan MCHC (RBC) [Mass/Vol] 32.6 g/dL Normal 29.9-35.2 [facility] Comment on above: Performed By: #### C BC #### [facility] [address] [place] [address] Dr. Bertha Duncan MCV (RBC) [Entitic vol] 85.9 fL Normal 81.0-99.0 [facility] Comment on above: Performed By: #### C BC #### [facility] [address] [place] [address] Dr. Bertha Duncan MONO # 0.7 103/ul Normal 0.3-0.8 [facility] Comment on above: Performed By: #### C BC #### [facility] [address] [place] [address] Dr. Bertha Duncan Monocytes/100 WBC (Bld) 7.0 % Normal 1.7-12.0 [facility] Comment on above: Performed By: #### C BC #### [facility] [address] [place] [address] Dr. Bertha Duncan NEUT # 6.3 103/ul Normal 1.4-6.5 [facility] Comment on above: Performed By: #### C BC #### [facility] [address] [place] [address] Dr. Bertha Duncan Neutrophils/100 WBC (Bld) 60.5 % Normal 43.0-75.0 [facility] Comment on above: Performed By: #### C BC #### [facility] [address] [place] [address] Dr. Bertha Duncan Platelet mean volume (Bld) [Entitic vol] 9.6 fL Normal 9.5-13.5 [facility] Comment on above: Performed By: #### C BC #### [facility] [address] [place] [address] Dr. Bertha Duncan PLT 393 103/ul Normal 150-450 [facility] Comment on above: Performed By: #### C BC #### [facility] [address] [place] [address] Dr. Bertha Duncan RBC 4.54 106/ul Normal 4.20-5.40 [facility] Comment on above: Performed By: #### C BC #### [facility] [address] [place] [address] Dr. Bertha Duncan WBC 10.4 103/ul Normal 4.0-11.0 [facility] Comment on above: Performed By: #### C BC #### [facility] [address] [address] [address] Bertha Duncan UA (CLEAN/CATCH) MICROSCOPIC IF INDICATEon 11-10-2021 Bilirubin Ql (U) Negative Normal NEGATIVE [facility] Comment on above: Performed By: #### U MICRO, UARMICR #### [facility] [address] [address] [address] Bertha Duncan Clarity (U) SL CLOUDY Abnormal CLEAR [facility] Comment on above: Performed By: #### U MICRO, UARMICR #### [facility] [address] [address] [address] Bertha Duncan Color (U) LT. YELLOW Normal YELLOW [facility] Comment on above: Performed By: #### U MICRO, UARMICR #### [facility] [address] [place] [address] Dr. Bertha Duncan Glucose Ql (U) 100 mg/dl Abnormal NEGATIVE [facility] Comment on above: Performed By: #### U MICRO, UARMICR #### [facility] [address] [address] [address] Bertha Duncan Hemoglobin Ql (U) Negative Normal NEGATIVE [facility] Comment on above: Performed By: #### U MICRO, UARMICR #### [facility] [address] [place] [address] Dr. Bertha Duncan Ketones Ql (U) Negative Normal NEGATIVE [facility] Comment on above: Performed By: #### U MICRO, UARMICR #### [facility] [address] [address] [address] Bertha Duncan LEUKOCYTES TRACE Abnormal NEGATIVE [facility] Comment on above: Performed By: #### U MICRO, UARMICR #### [facility] [address] [place] [address] Dr. Bertha Duncan Nitrite Ql (U) Negative Normal NEGATIVE [facility] Comment on above: Performed By: #### U MICRO, UARMICR #### [facility] [address] [place] [address] Dr. Bertha Duncan pH (U) 7.0 [pH] Normal 5-9 [facility] Comment on above: Performed By: #### U MICRO, UARMICR #### [facility] [address] [place] [address] Dr. Bertha Duncan SPEC GRAVITY 1.015 Normal 1.005-<=1.0 25 [facility] Comment on above: Performed By: #### U MICRO, UARMICR #### [facility] [address] [place] [address] Dr. Bertha Duncan UA PROTEIN Negative Normal NEGATIVE/ TRACE [facility] Comment on above: Performed By: #### U MICRO, UARMICR #### [facility] [address] [place] [address] Dr. Bertha Duncan UR MICRO IND INDICATED Normal [facility] Comment on above: Performed By: #### U MICRO, UARMICR #### [facility] [address] [place] [address] Dr. Bertha Duncan Urobilinogen Qn (U) 0.2 {[place]'U}/dL Normal 0.2 - 1. 0 [facility] Comment on above: Performed By: #### U MICRO, UARMICR #### [facility] [address] [place] [address] Dr. Bertha Duncan URINE MICROSCOPIC ONLYon BACTERIA TRACE Abnormal NONE SEEN [facility] Comment on above: Performed By: #### U MICRO, UARMICR #### [facility] [address] [place] [address] Dr. Bertha Duncan Bacteria identified Cx Nom (U) INDICATED Normal [facility] Comment on above: Performed By: #### U MICRO, UARMICR #### [facility] [address] [place] [address] Dr. Bertha Duncan CAST NONE SEEN Normal NONE SEEN [facility] Comment on above: Performed By: #### U MICRO, UARMICR #### [facility] [address] [place] [address] Dr. Bertha Duncan Crystals LM Nom (Urine sed) NONE SEEN Normal NONE SEEN [facility] Comment on above: Performed By: #### U MICRO, UARMICR #### [facility] [address] [place] [address] Dr. Bertha Duncan Epithelial cells LM Ql (Urine sed) RARE Normal NONE SEEN /RARE [facility] Comment on above: Performed By: #### U MICRO, UARMICR #### [facility] [address] [place] [address] Dr. Bertha Duncan MUCOUS TRACE Abnormal NONE SEEN [facility] Comment on above: Performed By: #### U MICRO, UARMICR #### [facility] [address] [place] [address] Dr. Bertha Duncan RBC 0-2 Normal 0-2 [facility] Comment on above: Performed By: #### U MICRO, UARMICR #### [facility] [address] [place] [address] Dr. Bertha Duncan WBC 2-5 Abnormal NONE SEEN [facility] Comment on above: Performed By: #### U MICRO, UARMICR #### [facility] [address] [place] [address] Dr. Bertha Duncan CULTURE URINEon 11-02-2021 CULTURE URINE Culture Observations : HEAVY GROWTH OF MIXED GENITAL BEAU. NO POTENTIAL PATHOGENS SEEN. Normal [facility] Comment on above: Performed By: #### U MICRO, UARMICR #### [facility] [address] [place] [address] Dr. Bertha Duncan UA (CLEAN/CATCH) JOINER APPRENTICE/MICRO I F IND.on 11-02-2021 Bilirubin Ql (U) Negative Normal NEGATIVE [facility] Comment on above: Performed By: #### U MICRO, UACSIND #### [facility] [address] [place] [address] Dr. Bertha Duncan Clarity (U) CLEAR Normal CLEAR [facility] Comment on above: Performed By: #### U MICRO, UACSIND #### [facility] [address] [place] [address] Dr. Bertha Duncan Color (U) LT. YELLOW Normal YELLOW [facility] Comment on above: Performed By: #### U MICRO, UACSIND #### [facility] [address] [address] [address] Bertha Duncan Glucose Ql (U) 250 mg/dl Abnormal NEGATIVE [facility] Comment on above: Performed By: #### U MICRO, UACSIND #### [facility] [address] [address] [address] Bertha Duncan Hemoglobin Ql (U) SMALL Abnormal NEGATIVE [facility] Comment on above: Performed By: #### U MICRO, UACSIND #### [facility] [address] [address] [address] Bertha Duncan Ketones Ql (U) Negative Normal NEGATIVE [facility] Comment on above: Performed By: #### U MICRO, UACSIND #### [facility] [address] [place] [address] Dr. Bertha Duncan LEUKOCYTES LARGE Abnormal NEGATIVE [facility] Comment on above: Performed By: #### U MICRO, UACSIND #### [facility] [address] [address] [address] Bertha Duncan Nitrite Ql (U) Negative Normal NEGATIVE [facility] Comment on above: Performed By: #### U MICRO, UACSIND #### [facility] [address] [place] [address] Dr. eBrtha Duncan pH (U) 6.0 [pH] Normal 5-9 [facility] Comment on above: Performed By: #### U MICRO, UACSIND #### [facility] [address] [address] [address] Bertha Duncan SPEC GRAVITY 1.025 Normal 1.005-<=1.0 25 [facility] Comment on above: Performed By: #### U MICRO, UACSIND #### [facility] [address] [place] [address] Dr. Bertha Duncan UA PROTEIN Negative Normal NEGATIVE/ TRACE [facility] Comment on above: Performed By: #### U MICRO, UACSIND #### [facility] [address] [place] [address] Dr. Bertha Duncan UR MICRO IND INDICATED Normal [facility] Comment on above: Performed By: #### U MICRO, UACSIND #### [facility] [address] [place] [address] Dr. Bertha Duncan Urobilinogen Qn (U) 0.2 {[place]'U}/dL Normal 0.2 - 1. 0 [facility] Comment on above: Performed By: #### U MICRO, UACSIND #### [facility] [address] [address] [address] Bertha Duncan URINE MICROSCOPIC ONLYon BACTERIA SMALL Abnormal NONE SEEN [facility] Comment on above: Performed By: #### U MICRO, UACSIND #### [facility] [address] [place] [address] Dr. Bertha Duncan Bacteria identified Cx Nom (U) INDICATED Normal [facility] Comment on above: Performed By: #### U MICRO, UACSIND #### [facility] [address] [place] [address] Dr. Bertha Duncan CAST NONE SEEN Normal NONE SEEN [facility] Comment on above: Performed By: #### U MICRO, UACSIND #### [facility] [address] [place] [address] Dr. Bertha Duncan Crystals LM Nom (Urine sed) NONE SEEN Normal NONE SEEN [facility] Comment on above: Performed By: #### U MICRO, UACSIND #### [facility] [address] [place] [address] Dr. Bertha Duncan Epithelial cells LM Ql (Urine sed) MODERATE Abnormal NONE SEEN /RARE [facility] Comment on above: Performed By: #### U MICRO, UACSIND #### [facility] [address] [address] [address] Bertha Duncan MUCOUS TRACE Abnormal NONE SEEN [facility] Comment on above: Performed By: #### U MICRO, UACSIND #### [facility] [address] [place] [address] Dr. Bertha Duncan RBC 5-10 Abnormal 0-2 [facility] Comment on above: Performed By: #### U MICRO, UACSIND #### [facility] [address] [address] [address] Bertha Duncan WBC 10-20 Abnormal NONE SEEN [facility] Comment on above: Performed By: #### U JACKY UACSIND #### [facility] [address] [address] [address] Bertha Duncan US KIDNEYS BLADDERon 022 [...] ARTEM WILLS Date: 2021-11-02 18:01 Normal [facility] CBC AUTO DIFFon 10-27-2021 BASO # 0.0 103/ul Normal 0.0-0.1 [facility] Comment on above: Performed By: #### U JACKY UARMICR #### [facility] [address] [address] [address] Bertha Duncan Basophils/100 WBC (Bld) 0.4 % Normal 0.2-2.0 [facility] Comment on above: Performed By: #### U JACKY UARMICR #### [facility] [address] [place] [address] Dr. Bertha Duncan EO # 0.1 103/ul Normal 0.0-0.7 [facility] Comment on above: Performed By: #### U MICRO, UARMICR #### [facility] [address] [place] [address] Dr. Bertha Duncan Eosinophils/100 WBC (Bld) 1.5 % Normal 0.9-7.0 [facility] Comment on above: Performed By: #### U MICRO, UARMICR #### [facility] [address] [place] [address] Dr. Bertha Duncan Erythrocyte distribution width (RBC) [Ratio] 12.8 % Normal 11.0-15.0 [facility] Comment on above: Performed By: #### U MICRO, UARMICR #### [facility] [address] [place] [address] Dr. Bertha Duncan Hematocrit (Bld) [Volume fraction] 36.0 % Normal 36.0-48.0 [facility] Comment on above: Performed By: #### U MICRO, UARMICR #### [facility] [address] [place] [address] Dr. Bertha Duncan Hemoglobin (Bld) [Mass/Vol] 11.7 g/dL Critically low 12.0-16.0 [facility] Comment on above: Performed By: #### U MICRO, UARMICR #### [facility] [address] [place] [address] Dr. Bertha Duncan IG # 0.02 10e3/ul Normal 0.00-0.03 [facility] Comment on above: Performed By: #### U MICRO, UARMICR #### [facility] [address] [place] [address] Dr. Bertha Duncan IG % 0.3 % Normal 0.0-0.5 [facility] Comment on above: Performed By: #### U MICRO, UARMICR #### [facility] [address] [place] [address] Dr. Bertha Duncan LYMPH # 2.2 103/ul Normal 1.2-3.8 [facility] Comment on above: Performed By: #### U MICRO, UARMICR #### [facility] [address] [place] [address] Dr. Bertha Duncan Lymphocytes/100 WBC (Bld) 30.2 % Normal 20.5-60.0 [facility] Comment on above: Performed By: #### U MICRO, UARMICR #### [facility] [address] [place] [address] Dr. Bertha Duncan MANUAL DIFF REQ NO Normal [facility] Comment on above: Performed By: #### U MICRO, UARMICR #### [facility] [address] [place] [address] Dr. Bertha Duncan MCH (RBC) [Entitic mass] 28.5 pg Normal 26.7-34.0 [facility] Comment on above: Performed By: #### U MICRO, UARMICR #### [facility] [address] [place] [address] Dr. Bertha Duncan MCHC (RBC) [Mass/Vol] 32.5 g/dL Normal 29.9-35.2 [facility] Comment on above: Performed By: #### U MICRO, UARMICR #### [facility] [address] [place] [address] Dr. Bertha Duncan MCV (RBC) [Entitic vol] 87.8 fL Normal 81.0-99.0 [facility] Comment on above: Performed By: #### U MICRO, UARMICR #### [facility] [address] [place] [address] Dr. Bertha Duncan MONO # 0.5 103/ul Normal 0.3-0.8 [facility] Comment on above: Performed By: #### U MICRO, UARMICR #### [facility] [address] [place] [address] Dr. Bertha Duncan Monocytes/100 WBC (Bld) 6.9 % Normal 1.7-12.0 [facility] Comment on above: Performed By: #### U MICRO, UARMICR #### [facility] [address] [address] [address] Bertha Duncan NEUT # 4.5 103/ul Normal 1.4-6.5 [facility] Comment on above: Performed By: #### U MICRO, UARMICR #### [facility] [address] [place] [address] Dr. Bertha Duncan Neutrophils/100 WBC (Bld) 60.7 % Normal 43.0-75.0 [facility] Comment on above: Performed By: #### U MICRO, UARMICR #### [facility] [address] [address] [address] Bertha Duncan Platelet mean volume (Bld) [Entitic vol] 9.5 fL Normal 9.5-13.5 [facility] Comment on above: Performed By: #### U MICRO, UARMICR #### [facility] [address] [place] [address] Dr. Bertha Duncan PLT 360 103/ul Normal 150-450 [facility] Comment on above: Performed By: #### U MICRO, UARMICR #### [facility] [address] [place] [address] Dr. Bertha Duncan RBC 4.10 106/ul Critically low 4.20-5.40 [facility] Comment on above: Performed By: #### U MICRO, UARMICR #### [facility] [address] [place] [address] Dr. Bertha Duncan WBC 7.4 103/ul Normal 4.0-11.0 [facility] Comment on above: Performed By: #### U MICRO, UARMICR #### [facility] [address] [place] [address] Dr. Bertha Duncan UA RANDOMon 10-27-2021 Bilirubin Ql (U) Negative Normal NEGATIVE [facility] Comment on above: Performed By: #### U A #### [facility] [address] [place] [address] Dr. Bertha Duncan Clarity (U) CLEAR Normal CLEAR [facility] Comment on above: Performed By: #### U A #### [facility] [address] [place] [address] Dr. Bertha Duncan Color (U) RED Abnormal YELLOW [facility] Comment on above: Performed By: #### U A #### [facility] [address] [place] [address] Dr. Bertha Duncan Glucose Ql (U) 250 mg/dl Abnormal NEGATIVE [facility] Comment on above: Performed By: #### U A #### [facility] [address] [place] [address] Dr. Bertha Duncan Hemoglobin Ql (U) LARGE Abnormal NEGATIVE [facility] Comment on above: Performed By: #### U A #### [facility] [address] [place] [address] Dr. Bertha Duncan Ketones Ql (U) Negative Normal NEGATIVE [facility] Comment on above: Performed By: #### U A #### [facility] [address] [place] [address] Dr. Bertha Duncan LEUKOCYTES Negative Normal NEGATIVE [facility] Comment on above: Performed By: #### U A #### [facility] [address] [place] [address] Dr. Bertha Duncan Nitrite Ql (U) Negative Normal NEGATIVE [facility] Comment on above: Performed By: #### U A #### [facility] [address] [place] [address] Dr. Bertha Duncan pH (U) 5.5 [pH] Normal 5-9 [facility] Comment on above: Performed By: #### U A #### [facility] [address] [place] [address] Dr. Bertha Duncan SPEC GRAVITY 1.015 Normal 1.005-<=1.0 25 [facility] Comment on above: Performed By: #### U A #### [facility] [address] [place] [address] Dr. Bertha Duncan UA PROTEIN TRACE Normal NEGATIVE/ TRACE [facility] Comment on above: Performed By: #### U A #### [facility] [address] [place] [address] Dr. Bertha Duncan Urobilinogen Qn (U) 0.2 {[place]'U}/dL Normal 0.2 - 1. 0 [facility] Comment on above: Performed By: #### U A #### [facility] [address] [address] [address] Bertha Duncan ABO/RHon 10-07-2021 ABO/Rh Positive [facility] Basic Metabolic Panel w/ Ref angelina to MGon 10-07-2021 Anion gap [Moles/Vol] 16 mmol/L 9 - 17 mmol/L [facility] Calcium [Mass/Vol] 9.8 mg/dL 8.6 - 10. 4 mg/dL [facility] Chloride [Moles/Vol] 98 mmol/L 98 - 10 7 mmol/L [facility] CO2 [Moles/Vol] 25 mmol/L 20 - 31 mmol/L [facility] Creatinine [Mass/Vol] 0.41 mg/dL Low 0.50 - 0.90 mg/dL [facility] GFR Non- Pediatric GFR requires additional information. Refer to [facility] website for calculator. >60 mL/min [facility] Glucose [Mass/Vol] 69 mg/dL Low 70 - 99 mg/dL [facility] Interpretation and review of laboratory results Abnormal [facility] Potassium [Moles/Vol] 4.1 mmol/L 3.7 - 5.3 mmol/L [facility] Sodium [Moles/Vol] 139 mmol/L 135 - 144 mmol/L [facility] Urea nitrogen (BldV) [Mass/Vol] 10 mg/dL 6 - 20 mg/dL [facility] Urea nitrogen/Creatinine (Bld) [Mass ratio] 24 High [facility] CBC with Auto Differentialon 10-07-2021 Absolute Eos # 0.23 [facility] Absolute Immature Granulocyte 0.19 [facility] Absolute Lymph # 3.34 [facility] Absolute [place] # 1.34 [facility] Basophils (Bld) [#/Vol] 0.06 10*3/uL [facility] Basophils/100 WBC (Bld) 0 % 0 - 2 % [facility] Eosinophils/100 WBC (Bld) 1 % 1 - 4 % [facility] Hematocrit (Bld) [Volume fraction] 35.9 % Low 36.3 - 47.1 % [facility] Hemoglobin (Bld) [Mass/Vol] 11.6 g/dL Low 11.9 - 15.1 g/dL [facility] Immature granulocytes/100 WBC (Bld) 1 % High 0 [facility] Interpretation and review of laboratory results Abnormal [facility] Lymphocytes/100 WBC (Bld) 18 % Low 25 - 45 % [facility] MCH (RBC) [Entitic mass] 28.8 pg 25.2 - 33.5 pg [facility] MCHC (RBC) [Mass/Vol] 32.3 g/dL 28.4 - 34.8 g/dL [facility] MCV (RBC) [Entitic vol] 89.1 fL 82.6 - 102.9 fL [facility] Monocytes/100 WBC (Bld) 7 % 2 - 8 % [facility] NRBC Automated 0.0 0.0 per 100 WBC [facility] Platelet distribution width (Bld) [Ratio] 12.4 % 11.8 - 14.4 % [facility] Platelet mean volume (Bld) [Entitic vol] 8.3 fL 8.1 - 13.5 fL [facility] Platelets (Bld) [#/Vol] 664 10*3/uL High [facility] RBC (Bld) [#/Vol] 4.03 10*6/uL 3.95 - 5.1 1 m/uL [facility] Segmented neutrophils/100 WBC (Bld) 73 % High 34 - 64 % [facility] Segs Absolute 13.24 High [facility] WBC (Bld) [#/Vol] 18.4 10*3/uL High [facility] HCG, Quantitative, on 10-07-2021 hCG Quant [id number] High <5 mIU/mL [facility] Comment on above: Non-preg premeno <=5 Postmeno <=8 Male <=3 If HCG results do not concur with clinical observations, additional testing to confirm results is recommended. Elevated results not associated with may be found in patients with other diseases such as tumors of the germ cells (testis, ovaries, etc.), bladder, pancreas, stomach, lungs, and liver. Interpretation and review of laboratory results Abnormal [facility] Hepatic Function Panelon Albumin [Mass/Vol] 4.1 g/dL 3.5 - 5.2 g/dL [facility] Albumin/Globulin [Mass ratio] 1.1 {ratio} [facility] ALP (Bld) [Catalytic activity/Vol] 86 U/L 35 - 104 U/L [facility] ALT [Catalytic activity/Vol] 15 U/L 5 - 33 U/L [facility] AST [Catalytic activity/Vol] 27 U/L <32 [facility] Bilirubin [Mass/Vol] 0.18 mg/dL Low 0.3 - 1 .2 mg/dL [facility] Bilirubin, Indirect Can not be calculated 0.00 - 1.00 mg/dL [facility] Bilirubin.indirect [Mass/Vol] mg/dL <0.31 mg/dL [facility] Free PSA/Total PSA [Mass fraction] 8.0 g/dL 6.4 - 8.3 g/dL [facility] Interpretation and review of laboratory results Abnormal [facility] Laboratory - Chemistry and C hemistry - challengeon 10-07-2021 GFR/1.73 sq M.predicted MDRD (S/P/Bld) [Vol rate/Area] [facility] Comment on above: Average GFR for <20 years old not available. Chronic Kidney Disease: <60 mL/min/1.73sq m Kidney failure: <15 mL/min/1.73sq m eGFR calculated using average adult body mass. Additional eGFR calculator available at: http://www.[employer].Anteryon/multiple_crcl_2012.htm Stage 1: Some kidney damage normal GFR Stage 2: Mild kidney damage GFR 60-89 Stage 3: Moderate kidney damage GFR 30-59 Stage 4: Severe kidney damage GFR 15-29 Stage 5: Severe kidney damage GFR <15 ESRD - chronic treatment by dialysis or transplant Lactate, Sepsison 10-07-2021 Interpretation and review of laboratory results Abnormal [facility] Lactic Acid, Sepsis 3.2 mmol/L High 0.5 - 1. 9 mmol/L [facility] Interpretation and review of laboratory results Abnormal [facility] Lactic Acid, Sepsis 3.0 mmol/L High 0.5 - 1. 9 mmol/L [facility] Lipaseon 10-07-2021 Lipase [Catalytic activity/Vol] 32 U/L 13 - 60 U/L [facility] Microscopic Urinalysison - [facility] Bacteria, UA TRACE Abnormal None [facility] Epithelial Cells UA 2 TO 5 [facility] Interpretation and review of laboratory results Abnormal [facility] RBC, UA 50 TO 100 [facility] WBC, UA 5 TO 10 [facility] Urinalysis with Reflex to Cu ltureon 10-07-2021 Bilirubin Urine Negative NEGATIVE [facility] Color, UA Yellow Yellow [facility] Glucose, Ur TRACE Abnormal NEGATIVE [facility] Interpretation and review of laboratory results Abnormal [facility] Ketones Ql (U) Negative NEGATIVE [facility] Leukocyte esterase Test strip Ql (U) TRACE Abnormal NEGATIVE [facility] Nitrite, Urine Negative NEGATIVE [facility] pH, UA 6.5 [facility] Protein, UA 1+ Abnormal NEGATIVE [facility] Specific [place], UA <1.005 Low [facility] Turbidity UA Clear Clear [facility] Urine Hgb 3+ Abnormal NEGATIVE [facility] Urobilinogen, Urine Normal Normal [facility] XR CHEST PORTABLEon 10-08-19 22 Other than mild atelectasis in the right perihilar area no acute lung disease. [facility] RIS CONSOLIDATED EXAMINATION: ONE XRAY VIEW OF THE CHEST 10/07/2021 6:13 pm COMPARISON: June 13, 2020 HISTORY: ORDERING SYSTEM PROVIDED HISTORY: Slight decreased breath sounds left lower lung TECHNOLOGIST PROVIDED HISTORY: Slight decreased breath sounds left lower lung FINDINGS: Mild atelectasis in the right perihilar area. No other active lung parenchymal or pleural disease. Heart, mediastinum and pleural surfaces appear unremarkable. [facility] RIS CONSOLIDATED Madelaine Levine MD - [...] right perihilar area no acute lung disease. [employer] Phone: Radiology Study observation (narrative) [employer] Phone: XR CHEST PORTABLEOrdered By: Madelaine Levine on 10-07-2021 [employer] Phone: US URINARY BLADDER LIMITEDon 07-20-2021 Right ureteral jet could not be visualized. Postvoid residual 212 mL. [facility] RIS CONSOLIDATED EXAMINATION: ULTRASOUND OF THE URINARY BLADDER 07/20/2021 COMPARISON: None. HISTORY: ORDERING SYSTEM PROVIDED HISTORY: Urinary tract infection without hematuria, site unspecified FINDINGS: Urinary bladder unremarkable in appearance with prevoid volume 495 mL. Right ureteral jet not demonstrated. Postvoid residual 212 mL. [facility] RIS CONSOLIDATED Nirmal Haskins DO - 07/20/2021 EXAMINATION: ULTRASOUND OF THE URINARY BLADDER 07/20/2021 COMPARISON: None. HISTORY: ORDERING SYSTEM PROVIDED HISTORY: Urinary tract infection without hematuria, site unspecified FINDINGS: Urinary bladder unremarkable in appearance with prevoid volume 495 mL. Right ureteral jet not demonstrated. Postvoid residual 212 mL. IMPRESSION: Right ureteral jet could not be visualized. Postvoid residual 212 mL. [employer] Phone: Radiology Study observation (narrative) [employer] Phone: US URINARY BLADDER LIMITEDOr dered By: Nirmal Haskins on 07-20-2021 [facility] [employer] Work Phone: Urinalysis with Microscopico n 07-12-2021 - [facility] Bacteria, UA 2+ Abnormal None [facility] Bilirubin Urine Negative NE[facility]IVE [facility] Color, UA Yellow Yellow [facility] Epithelial Cells UA 2 TO 5 [facility] Glucose, Ur Negative NEGATIVE [facility] [employer] Interpretation and review of laboratory results Abnormal [facility] Ketones Ql (U) Negative NEGATIVE [facility] Leukocyte esterase Test strip Ql (U) LARGE Abnormal NEGATIVE [facility] Nitrite, Urine Negative NEGATIVE [facility] pH, UA 6.5 [facility] Protein, UA Negative NEGATIVE [facility] RBC, UA 0 TO 2 [facility] Specific [place], UA 1.010 [facility] Turbidity UA Clear Clear [facility] Urine Hgb Negative NEGATIVE [facility] [employer] Urobilinogen, Urine Normal Normal [facility] WBC, UA 20 TO 50 [facility] APTTOrdered By: Louise martinez on 01-19-2021 aPTT Coag (Bld) [Time] 29.[address] [facility] Work Phone: Comment on above: IV Heparin Therapy Range: 62.0-94.0 CBC Auto DifferentialOrdered By: Louise Ordonez on 01-19-2021 Absolute Eos # 0.11 [facility] Work Phone: Absolute Immature Granulocyte 0.05 [facility] Work Phone: Absolute Lymph # 2.[address] [facility] Work Phone: Absolute [place] # 0.60 [facility] [employer] [facility] Work Phone: Basophils (Bld) [#/Vol] 0.03 10*3/uL [employer] Work Phone: Basophils/100 WBC (Bld) 0 % 0 - 2 % [facility] [employer] Work Phone: Differential Type NOT REPORTED [facility] [employer] Work Phone: Eosinophils/100 WBC (Bld) 1 % 1 - 4 % [employer] Work Phone: Hematocrit (Bld) [Volume fraction] 43.7 % 36.3 - 47.1 % [employer] Phone: Hemoglobin.gastrointes tinal spec 1 Ql (Stl) 14.9 g/dL 11.9 - 15.1 g/dL [employer] Phone: Immature granulocytes/100 WBC (Bld) 1 % High 0 [employer] Phone: Interpretation and review of laboratory results Abnormal [employer] Phone: Lymphocytes/100 WBC (Bld) 21 % Low 25 - 45 % [employer] Phone: MCH (RBC) [Entitic mass] 30.3 pg 25.0 - 35.0 pg [employer] Phone: MCHC (RBC) [Mass/Vol] 34.1 g/dL 28.4 - 34.8 g/dL [employer] Phone: MCV (RBC) [Entitic vol] 88.8 fL 78.0 - 102.0 fL [employer] Phone: Monocytes/100 WBC (Bld) 6 % 2 - 8 % [employer] Phone: NRBC Automated 0.0 0.0 per 100 WBC [employer] Phone: Platelet distribution width (Bld) [Ratio] 12.3 % 11.8 - 14.4 % [employer] Phone: Platelet Estimate NOT REPORTED [employer] Phone: Platelet mean volume (Bld) [Entitic vol] 9.8 fL 8.1 - 13.5 fL [employer] Phone: Platelets (Bld) [#/Vol] 297 10*3/uL [employer] Phone: RBC (Bld) [#/Vol] 4.92 10*6/uL 3.95 - 5.1 1 m/uL [employer] Work Phone: RBC (Bld) [#/Vol] NOT REPORTED [employer] Phone: Segmented neutrophils/100 WBC (Bld) 71 % High 34 - 64 % [employer] Phone: Segs Absolute 6.86 [employer] Work Phone: WBC (Bld) [#/Vol] 9.7 10*3/uL [employer] Work Phone: WBC (Bld) [#/Vol] NOT REPORTED [employer] Phone: [employer] Phone: Comprehensive Metabolic Pane lOrdered By: Louise Ordonez on 01-19-2021 Albumin [Mass/Vol] 5.1 g/dL 3.5 - 5.2 g/dL [employer] Phone: Albumin/Globulin [Mass ratio] 1.5 {ratio} [employer] Phone: ALP (Bld) [Catalytic activity/Vol] 90 U/L 35 - 104 U/L [employer] Phone: ALT [Catalytic activity/Vol] 22 U/L 5 - 33 U/L [employer] Phone: Anion gap [Moles/Vol] 14 mmol/L 9 - 17 mmol/L [employer] Phone: AST [Catalytic activity/Vol] 29 U/L <32 [employer] Phone: Bilirubin [Mass/Vol] 0.54 mg/dL 0.3 - 1 .2 mg/dL [employer] Phone: Calcium [Mass/Vol] 10.4 mg/dL 8.6 - 10. 4 mg/dL [employer] Phone: Chloride [Moles/Vol] 103 mmol/L 98 - 10 7 mmol/L [employer] Phone: CO2 [Moles/Vol] 26 mmol/L 20 - 31 mmol/L [employer] Phone: Creatinine [Mass/Vol] 0.52 mg/dL 0.50 - 0.90 mg/dL [employer] Phone: Free PSA/Total PSA [Mass fraction] 8.6 g/dL High 6.4 - 8.3 g/dL [employer] Phone: GFR NOT REPORTED >60 mL/min [employer] Phone: GFR Non- Pediatric GFR requires additional information. Refer to [facility] website for calculator. >60 mL/min [employer] Phone: Glucose [Mass/Vol] 82 mg/dL 70 - 99 mg/dL [employer] Phone: Interpretation and review of laboratory results Abnormal [employer] Phone: Potassium [Moles/Vol] 4.3 mmol/L 3.7 - 5.3 mmol/L [employer] Phone: Sodium [Moles/Vol] 143 mmol/L 135 - 144 mmol/L [employer] Phone: Urea nitrogen (BldV) [Mass/Vol] 15 mg/dL 6 - 20 mg/dL [employer] Phone: Urea nitrogen/Creatinine (Bld) [Mass ratio] 29 High [employer] Phone: [employer] Phone: EKG 12 LeadOrdered By: Morena Ordonez on 01-19-2021 Atrial Rate 63 BPM [employer] Phone: P [place] 33 degrees [employer] Phone: P-R Interval 136 ms [employer] Phone: Q-T Interval 386 ms [employer] Phone: QRS Duration 98 ms [employer] Phone: QTc Calculation (Bazett) 395 ms [employer] Phone: R [place] 63 degrees [employer] Phone: T [place] 47 degrees [employer] Phone: Ventricular Rate 63 BPM [employer] Phone: Normal sinus rhythm with sinus arrhythmia Normal ECG When compared with ECG of 13-JUN-2020 13:57, No significant change was found Confirmed by Marlyn Boyce MD ([id number]) on 01/19/2021 10:08:57 PM [employer] Phone: [place], Mhpn Incoming E kg Results From [employer] - 01/19/2021 10:09 PM EDT Normal sinus rhythm with sinus arrhythmia Normal ECG When compared with ECG of 13-JUN-2020 13:57, No significant change was found Confirmed by Marlyn Boyce MD ([id number]) on 01/19/2021 10:08:57 PM [employer] Phone: [employer] Phone: Laboratory - Chemistry and C hemistry - challengeOrdered By: Louise Ordonez on 01-19-2021 GFR/1.73 sq M.predicted MDRD (S/P/Bld) [Vol rate/Area] [employer] Phone: Comment on above: Average GFR for <20 years old not available. Chronic Kidney Disease: <60 mL/min/1.73sq m Kidney failure: <15 mL/min/1.73sq m eGFR calculated using average adult body mass. Additional eGFR calculator available at: http://www.[employer]/multiple_crcl_2012.htm Stage 1: Some kidney damage normal GFR Stage 2: Mild kidney damage GFR 60-89 Stage 3: Moderate kidney damage GFR 30-59 Stage 4: Severe kidney damage GFR 15-29 Stage 5: Severe kidney damage GFR <15 ESRD - chronic treatment by dialysis or transplant No Panel InformationOrdered By: Louise Ordonez on 01-19-2021 [employer] Phone: Protime-INROrdered By: Morena Ordonez on 01-19-2021 INR Coag (Bld) [Relative time] 1.1 {INR} [employer] Phone: Comment on above: Non-therapeutic Range: INR = 0.9-1.2 Therapeutic Range: Moderate Anticoagulant Intensity: INR = 2.0-3.0 High Anticoagulant Intensity: INR = 2.5-3.5 PT Coag (PPP) [Time] 13.9 s [employer] Phone: Living Will/POAon 10-12-2020 Living Will/POA [id number] 0CD:127 Normal [facility] Pathology Noteon 10-12-2020 Pathology Note [id number]:127 Normal [facility] Ambulatory Clinical Summaryo n 10-11-2020 Ambulatory Clinical Summary {[id number] Normal [facility] General Surgery Office/Clini c Noteon 10-11-2020 General Surgery Office/Clinic Note Chief Complaint Post operative visit HPI Staff 4 Day s/p Cholecystectomy completed at [facility]. Present today with mother. Denies symptoms [...] Tobacco Use:. Never Smokeless Tobacco Use:., 10/11/2020 [facility] Comment on above: Result Comment: Anai talbot Signed By: KIARA ARIAS, Ron Ellis\Date and Time Signed: 10/11/20 13:37 EDT [...] your health care provider or diet and food and nutrition services supervisor (dietitian). This may include: ? Eating fewer [...] weight paul (more content not included)... Normal [facility] RAD - MRI Reporton RAD - MRI Report [id number] 0CD:127 Normal [facility] CBC Auto DifferentialOrdered By: Louise Lemos on 10-01-2020 Absolute Eos # 0.10 [employer] [facility] Work Phone: Absolute Immature Granulocyte <0.03 [employer] Work Phone: Absolute Lymph # 2.27 [facility] Work Phone: Absolute [place] # 0.54 [facility] Work Phone: Basophils (Bld) [#/Vol] 0.04 10*3/uL [employer] Work Phone: Basophils/100 WBC (Bld) 1 % 0 - 2 % [employer] Phone: Differential Type NOT REPORTED [employer] Phone: Eosinophils/100 WBC (Bld) 1 % 1 - 4 % [employer] Phone: Hematocrit (Bld) [Volume fraction] 43.3 % 36.3 - 47.1 % [employer] Phone: Hemoglobin.gastrointes tinal spec 1 Ql (Stl) 14.5 g/dL 11.9 - 15.1 g/dL [employer] Phone: Immature granulocytes/100 WBC (Bld) 0 % 0 [employer] Work Phone: Lymphocytes/100 WBC (Bld) 30 % 25 - 45 % [employer] Phone: MCH (RBC) [Entitic mass] 29.4 pg 25.0 - 35.0 pg [employer] Phone: MCHC (RBC) [Mass/Vol] 33.5 g/dL 28.4 - 34.8 g/dL [employer] Phone: MCV (RBC) [Entitic vol] 87.8 fL 78.0 - 102.0 fL [employer] Phone: Monocytes/100 WBC (Bld) 7 % 2 - 8 % [employer] Work Phone: NRBC Automated 0.0 0.0 per 100 WBC [employer] Phone: Platelet distribution width (Bld) [Ratio] 13.1 % 11.8 - 14.4 % [employer] Phone: Platelet Estimate NOT REPORTED [employer] Phone: Platelet mean volume (Bld) [Entitic vol] 10.9 fL 8.1 - 13.5 fL [employer] Phone: Platelets (Bld) [#/Vol] 313 10*3/uL [employer] Phone: RBC (Bld) [#/Vol] 4.93 10*6/uL 3.95 - 5.1 1 m/uL [employer] Phone: RBC (Bld) [#/Vol] NOT REPORTED [employer] Phone: Segmented neutrophils/100 WBC (Bld) 61 % 34 - 64 % [employer] Work Phone: Segs Absolute 4.57 [employer] Work Phone: WBC (Bld) [#/Vol] 7.5 10*3/uL [employer] Phone: WBC (Bld) [#/Vol] NOT REPORTED [employer] Phone: [employer] Work Phone: Comprehensive Metabolic Pane lOrdered By: Louise Lemos on 10-01-2020 Albumin [Mass/Vol] 4.7 g/dL 3.5 - 5.2 g/dL [employer] Phone: Albumin/Globulin [Mass ratio] 1.6 {ratio} [employer] Phone: ALP (Bld) [Catalytic activity/Vol] 200 U/L High 35 - 104 U/L [employer] Phone: ALT [Catalytic activity/Vol] 514 U/L High 5 - 33 U/L [employer] Phone: Anion gap [Moles/Vol] 9 mmol/L 9 - 17 mmol/L [employer] Phone: AST [Catalytic activity/Vol] 378 U/L High <32 [employer] Phone: Bilirubin [Mass/Vol] 1.72 mg/dL High 0.3 - 1 .2 mg/dL [employer] Phone: Calcium [Mass/Vol] 9.8 mg/dL 8.6 - 10. 4 mg/dL [employer] Phone: Chloride [Moles/Vol] 105 mmol/L 98 - 10 7 mmol/L [employer] Phone: CO2 [Moles/Vol] 27 mmol/L 20 - 31 mmol/L [employer] Phone: Creatinine [Mass/Vol] 0.45 mg/dL Low 0.50 - 0.90 mg/dL [employer] Phone: Free PSA/Total PSA [Mass fraction] 7.7 g/dL 6.4 - 8.3 g/dL [employer] Phone: GFR NOT REPORTED >60 mL/min [employer] Phone: GFR Non- Pediatric GFR requires additional information. Refer to NKDEP website for calculator. >60 mL/min [employer] Phone: Glucose [Mass/Vol] 103 mg/dL High 70 - 99 mg/dL [employer] Phone: Interpretation and review of laboratory results Abnormal [employer] Phone: Potassium [Moles/Vol] 4.4 mmol/L 3.7 - 5.3 mmol/L [employer] Phone: Sodium [Moles/Vol] 141 mmol/L 135 - 144 mmol/L [employer] Phone: Urea nitrogen (BldV) [Mass/Vol] 10 mg/dL 6 - 20 mg/dL [employer] Phone: Urea nitrogen/Creatinine (Bld) [Mass ratio] 22 High [employer] Phone: FTI RATIOOrdered By: Louise Lemos on 10-01-2020 Free Thyroxine Index 2.1 ug/dL 1.4 - 3 .1 ug/dL [employer] Phone: Insulin, totalOrdered By: Do paulino Lemos on 10-01-2020 Insulin 25.6 mU/L [facility] Phone: Insulin Comment 1100 [facility] Work Phone: Insulin Reference Range: [employer] Phone: Comment on above: Fastin.6-24.9 30 min: 20-112 60 min: 29-88 90 min: 26-84 120 min: 22-79 [employer] Phone: Laboratory - Chemistry and C hemistry - challengeOrdered By: Louise Lemos on 10-01-2020 GFR/1.73 sq M.predicted MDRD (S/P/Bld) [Vol rate/Area] [employer] Phone: Comment on above: Average GFR for <20 years old not available. Chronic Kidney Disease: <60 mL/min/1.73sq m Kidney failure: <15 mL/min/1.73sq m eGFR calculated using average adult body mass. Additional eGFR calculator available at: http://www.[employer]/multiple_crcl_2012.htm Stage 1: Some kidney damage normal GFR Stage 2: Mild kidney damage GFR 60-89 Stage 3: Moderate kidney damage GFR 30-59 Stage 4: Severe kidney damage GFR 15-29 Stage 5: Severe kidney damage GFR <15 ESRD - chronic treatment by dialysis or transplant Lipid PanelOrdered By: Morena Lemos on 10-01-2020 Cholesterol [Mass/Vol] 150 mg/dL <200 [employer] Phone: Comment on above: Cholesterol Guidelines: <200 Desirable 200-240 Borderline >240 Undesirable Cholesterol in HDL [Mass/Vol] 57 mg/dL >40 [employer] Phone: Comment on above: HDL Guidelines: <40 Undesirable 40-59 Borderline >59 Desirable Cholesterol in LDL [Mass/Vol] 78 mg/dL 0 - 130 mg/dL [employer] Phone: Comment on above: LDL Guidelines: <100 Desirable 100-129 Near to/above Desirable 130-159 Borderline >159 Undesirable Direct (measured) LDL and calculated LDL are not interchangeable tests. Cholesterol in VLDL [Mass/Vol] NOT REPORTED 1 - 30 mg/dL [employer] Phone: Cholesterol.total/Chol esterol in HDL [Mass ratio] 2.6 {ratio} <5 [employer] Phone: Triglyceride [Mass/Vol] 73 mg/dL <150 [employer] Phone: Comment on above: Triglyceride Guidelines: <150 Desirable 150-199 Borderline 200-499 High >499 Very high Based on AHA Guidelines for fasting triglyceride, January 2012. [employer] Phone: No Panel InformationOrdered By: Louise Lemos on 10-01-2020 [employer] Phone: [employer] Phone: T3, UptakeOrdered By: Kj Lemos on 10-01-2020 Thyroxine Uptake 27.66 % 22.5 - 37.0 % [employer] Phone: [employer] Phone: [id number] By: Louise Lemos on 10-01-2020 T4 [Mass/Vol] 7.5 ug/dL 4.5 - 10.9 ug/dL [employer] Phone: TSH without ReflexOrdered By : Louise Lemos on 10-01-2020 TSH Qn 2.23 m[IU]/L [employer] Phone: No Panel InformationOrdered By: Thierry Braun [...] intact. 2. No acute fracture or dislocation. [employer] Phone: EXAMINATION: TWO XRA Y VIEWS OF [...] acute fracture or dislocation. No marginal erosions. [employer] Phone: Leeroy, Mhpn Incoming Radiant Results From [employer]Sources - 08/26/2020 12:30 PM EDT EXAMINATION: TWO [...] intact. 2. No acute fracture or dislocation. [employer] Phone: Basic Metabolic Panelon 05-30 Anion gap [Moles/Vol] 10 mmol/L 9 - 17 mmol/L [employer] Phone: Bun/Cre Ratio 16 [employer] Work Phone: Calcium [Mass/Vol] 9.9 mg/dL 8.4 - 10. 2 mg/dL [employer] Phone: Chloride [Moles/Vol] 101 mmol/L 98 - 10 7 mmol/L [employer] Phone: CO2 [Moles/Vol] 27 mmol/L 20 - 31 mmol/L [employer] Phone: Creatinine [Mass/Vol] 0.61 mg/dL 0.5 - 0.9 mg/dL [employer] Phone: GFR NOT REPORTED >60 mL/min [employer] Phone: GFR Non- Pediatric GFR requires additional information. Refer to [employer] website for calculator. >60 mL/min [employer] Phone: Glucose [Mass/Vol] 77 mg/dL 60 - 100 mg/dL [employer] Phone: Potassium [Moles/Vol] 4.3 mmol/L 3.6 - 4.9 mmol/L [employer] Phone: Sodium [Moles/Vol] 138 mmol/L 135 - 144 mmol/L [employer] Phone: Urea nitrogen [Mass/Vol] 10 mg/dL 5 - 18 mg/dL [employer] Phone: CBC Auto Differentialon 05-30 Basophils (Bld) [#/Vol] 0.04 10*3/uL [employer] Phone: Basophils/100 WBC (Bld) 0 % 0 - 2 % [employer] Phone: Differential Type NOT REPORTED [employer] Phone: Eosinophils (Bld) [#/Vol] 0.14 10*3/uL [employer] Phone: Eosinophils/100 WBC (Bld) 1 % 1 - 4 % [employer] Phone: Erythrocyte distribution width (RBC) [Ratio] 13.1 % 11.8 - 14.4 % [employer] Phone: Hematocrit (Bld) [Volume fraction] 41.6 % 36.3 - 47.1 % [employer] Phone: Hemoglobin (Bld) [Mass/Vol] 13.5 g/dL 11.9 - 15.1 g/dL [employer] Phone: Immature granulocytes (Bld) [#/Vol] 0 % 0 [employer] Phone: Immature granulocytes (Bld) [#/Vol] 10*3/uL [employer] Phone: Interpretation and review of laboratory results Abnormal [employer] Phone: Lymphocytes (Bld) [#/Vol] 2.13 10*3/uL [employer] Phone: Lymphocytes/100 WBC (Bld) 21 % Low 25 - 45 % [employer] Phone: MCH (RBC) [Entitic mass] 28.2 pg 25 - 35 pg [employer] Phone: MCHC (RBC) [Mass/Vol] 32.5 g/dL 28.4 - 34.8 g/dL [employer] Phone: MCV (RBC) [Entitic vol] 87.0 fL 78 - 102 fL [employer] Phone: Monocytes (Bld) [#/Vol] 0.95 10*3/uL [employer] Phone: Monocytes/100 WBC (Bld) 9 % High 2 - 8 % [employer] Phone: Platelet mean volume (Bld) [Entitic vol] 10.9 fL 8.1 - 13.5 fL [employer] Phone: Platelets (Bld) [#/Vol] 262 10*3/uL [employer] Phone: Platelets (Bld) [#/Vol] NOT REPORTED [employer] Phone: RBC (Bld) [#/Vol] 4.78 10*6/uL 3.95 - 5.1 1 m/uL [employer] Work Phone: RBC morphology finding Nom (Bld) NOT REPORTED [employer] Work Phone: Segmented neutrophils/100 WBC (Bld) 69 % High 34 - 64 % [employer] Work Phone: Segs Absolute 6.97 [facility] Work Phone: WBC (Bld) [#/Vol] 0.0 10*3/uL 0.0 per 10 0 WBC [employer] Work Phone: WBC (Bld) [#/Vol] 10.3 10*3/uL [employer] Work Phone: WBC Morphology NOT REPORTED [facility] Work Phone: D-dimer, quantitativeon 05-30 D-Dimer, Quant 0.33 [employer] Work Phone: Comment on above: When combined [...] predicted among non-blacks MDRD (S/P/Bld) [Vol rate/Area] [employer] Phone: Comment on above: Stage 1: Some [...] body mass. Additional eGFR calculator available at: http://www.[employer]/multiple_crcl_2012.htm Troponinon 06-13-2020 Troponin I.cardiac [Mass/Vol] NOT REPORTED [facility] Phone: Troponin T.cardiac [Mass/Vol] NOT REPORTED <0.03 ng/mL [facility] Phone: Troponin, High Sensitivity <6 0 - 14 ng/L [employer] Phone: Comment on above: High Sensitivity Troponin values cannot be compared with other Troponin methodologies. Patients with high levels of Biotin oral intake (i.e >5mg/day) may have falsely decreased Troponin levels. Samples collected within 8 hours of biotin intake may require additional information for diagnosis. XR CHEST PORTABLEon 06-13-19 21 Leeroy, Mhpn Incoming Radiant Results From Inter[employer]/MapMyID - 06/13/2020 2:05 PM EST EXAMINATION: ONE [...] grossly intact. IMPRESSION: No acute cardiopulmonary pathology. [facility] Phone: EXAMINATION: ONE XRA Y VIEW OF [...] structures and soft tissues are grossly intact. [employer] Phone: No acute cardiopulmonary pathology. [employer] Phone: XR FOOT LEFT (MIN 3 VIEWS)on 06-13-2020 Erythrocyte distribution width (RBC) [Ratio] Postop changes as above. Hardware intact. No acute disease. [facility] Phone: EXAMINATION: THREE XRAY VIEWS OF THE LEFT FOOT 06/13/2020 3:34 pm COMPARISON: None. HISTORY: ORDERING SYSTEM PROVIDED HISTORY: pain TECHNOLOGIST PROVIDED HISTORY: pain FINDINGS: 2 screws transfix the medial malleolus and 2 screws transfix the talus. Cortical margins intact. Alignment anatomic. Soft tissues unremarkable. [facility] Phone: Leeroy, Mhpn Incoming Radiant Results From [employer]/Pacs - 06/13/2020 3:46 PM EST EXAMINATION: THREE XRAY VIEWS OF THE LEFT FOOT 06/13/2020 3:34 pm COMPARISON: None. HISTORY: ORDERING SYSTEM PROVIDED HISTORY: pain TECHNOLOGIST PROVIDED HISTORY: pain FINDINGS: 2 screws transfix the medial malleolus and 2 screws transfix the talus. Cortical margins intact. Alignment anatomic. Soft tissues unremarkable. IMPRESSION: Postop changes as above. Hardware intact. No acute disease. [employer] Phone: HCG,URINEon 02-02-2020 Beta HCG ( test) Ql (U) Negative Normal Negative [facility] Comment on above: Result Comment: POCT Performed By: #### H CGU #### [facility] [address] [place] [address] BASIC METABOLIC PANELon 10-0 3-2020 Anion gap [Moles/Vol] 16 mmol/L Normal 10 - 30 [facility] Comment on above: Performed By: #### B MP ####[facility] [place] [address] Calcium [Mass/Vol] 9.3 mg/dL Normal 8.5 - 10.7 [facility] Comment on above: Performed By: #### B MP ####[facility] [place] [address] Chloride [Moles/Vol] 101 mmol/L Normal 98 - 107 [facility] Comment on above: Performed By: #### B MP ####[facility] [place] [address] Creatinine [Mass/Vol] 0.55 mg/dL Normal 0.50 - 0.90 [facility] Comment on above: Performed By: #### B MP ####[facility] [place] [address] Glucose [Mass/Vol] 116 mg/dL High 74 - 99 [facility] Comment on above: Performed By: #### B MP ####[facility] [place] [address] HCO3 (Bld) [Moles/Vol] 23 mmol/L Normal 18 - 27 [facility] Comment on above: Performed By: #### B MP ####[facility] [place] [address] Potassium [Moles/Vol] 3.9 mmol/L Normal 3.5 - 5.3 [facility] Comment on above: Performed By: #### B MP ####[facility] [place] [address] Sodium [Moles/Vol] 136 mmol/L Normal 136 - 145 [facility] Comment on above: Performed By: #### B MP ####[facility] [place] [address] Urea nitrogen [Mass/Vol] 11 mg/dL Normal 6 - 23 [facility] Comment on above: Performed By: #### B MP ####[facility] [place] [address] BLOOD CULTURE, BACTERIALon 1 BLOOD CULTURE, BACTERIAL PATIENT: BLANKA FARIAS LOCATION: [address]#: [id number] : [birth year] AGE: SEX: F ORDERED BY: [place] NORTON SOURCE: Blood COLLECTED: 01/30/20 05:50 ANTIBIOTICS AT ERICA.: RECEIVED : 01/30/20 17:30 SITE: R E S U L T S BLOOD CULTURE, BACTERIAL FINAL 02/04/20 17:42 No Growth at 1 days No Growth at 2 days No Growth at 3 days No Growth at 4 days NO GROWTH - FINAL REPORT Normal [facility] Comment on above: Performed By: #### B LDC #### [facility] [address] [place] [address] CBC AND DIFFERENTIALon 01-29 % AUTOMATED IMMATURE GRAN 0.7 % Normal 0.0 - 1.0 [facility] Comment on above: Result Comment: Sabine ture Granulocyte Count (IG) includes promyelocytes, myelocytes and metamyelocytes but does not include bands. Percent differential counts (%) should be interpreted in the context of the absolute cell counts (cells/L). Performed By: #### C BCDF ####[facility] [place] [address] Basophils (Bld) [#/Vol] 0.03 10*3/uL Normal 0.00 - 0.10 [facility] Comment on above: Performed By: #### C BCDF ####[facility] [place] [address] Basophils/100 WBC (Bld) 0.1 % Normal 0.0 - 1.0 [facility] Comment on above: Performed By: #### C BCDF ####[facility] [place] [address] Erythrocyte distribution width (RBC) [Ratio] 12.4 % Normal 11.5 - 14.5 [facility] Comment on above: Performed By: #### C BCDF ####[facility] [place] [address] Hematocrit (Bld) [Volume fraction] 40.0 % Normal 36.0 - 46.0 [facility] Comment on above: Performed By: #### C BCDF ####[facility] [place] [address] Hemoglobin (Bld) [Mass/Vol] 13.3 g/dL Normal 12.0 - 16.0 [facility] Comment on above: Performed By: #### C BCDF ####[facility] [place] [address] Lymphocytes (Bld) [#/Vol] 1.64 10*3/uL Low 1.80 - 4.80 [facility] Comment on above: Performed By: #### C BCDF ####[place] [id number] [place] [address] Lymphocytes/100 WBC (Bld) 7.8 % Normal 28.0 - 48.0 [facility] Comment on above: Performed By: #### C BCDF ####[facility] [place] [address] MCHC (RBC) [Mass/Vol] 33.3 g/dL Normal 31.0 - 37.0 [facility] Comment on above: Performed By: #### C BCDF ####[facility] [place] [address] MCV (RBC) [Entitic vol] 89 fL Normal 78 - 102 [facility] Comment on above: Performed By: #### C BCDF ####[facility] [place] [address] Monocytes (Bld) [#/Vol] 1.06 10*3/uL High 0.10 - 1.00 [facility] Comment on above: Performed By: #### C BCDF ####[facility] [place] [address] Monocytes/100 WBC (Bld) 5.1 % Normal 3.0 - 9.0 [facility] Comment on above: Performed By: #### C BCDF ####[facility] [place] [address] Neutrophils (Bld) [#/Vol] 18.05 10*3/uL High 1.20 - 7.70 [facility] Comment on above: Performed By: #### C BCDF ####[facility] [place] [address] Neutrophils/100 WBC (Bld) 86.3 % Normal 33.0 - 69.0 [facility] Comment on above: Performed By: #### C BCDF ####[facility] [place] [address] Platelets (Bld) [#/Vol] 325 10*3/uL Normal 150 - 400 [facility] Comment on above: Performed By: #### C BCDF ####[facility] [place] [address] RBC (Bld) [#/Vol] 4.50 x10E12/L Normal 4.10 - 5.20 [facility] Comment on above: Performed By: #### C BCDF ####[facility] [facility] [place] [address] WBC (Bld) [#/Vol] 20.9 10*3/uL High 4.5 - 13.5 [facility] Comment on above: Performed By: #### C BCDF ####[facility] [place] [address] Consult-Medicineon 0 Consult-Medicine Service: Service: Medicine Consult: [...] Known Allergies: Objective: Objective Information: T PRBPSpO2 [id number]/7294% Date/Time01/29 5: 5: 5: 5: 5:29 Range(36.1C [...] 11 CREAT 0.55 Calcium, Serum 9.3 Coronavirus 2018, Screen Asymptomatic 29-Jan-2020 11:36:00 ResultValue Fluid Source [...] consult complete, will follow Consult Order ID: [id number] Electronic Signatures: [place] () (Signed 30-Jan-2020 16:39) Authored: Service, History of Present Illness, Review Family/Social History and ROS, Allergies, Objective, Assessment/Recommendat ions, Note Completion Last Updated: 30-Jan-2020 16:39 by [place] () Normal [facility] Daily Progress Note-Podiatry on 01-30-2020 Daily [...] today. Objective Data: Objective Information: T PRBPSpO2 Value36.44341902/7294% Date/Time01/29 5: 5: 5: 5: 5:29 Range(36.1C [...] Updated: 31-Jan-2020 08:12 by Thierry Braun (GERARDO) [facility] Discharge Planning [id number] 1 0- Discharge Planning Note2 Discharge Planning: [facility] < [facility] [place] of Choice Explainedyes Anticipated Discharge [id number] Discharge Planning 01/30/2020 0925: Transitional Multi Operation Machine Operator Note: Plan of care discussed in Interdisciplinary [...] and patient's mom agreeable. Referral sent [facility] via [employer]. Faye Crowe RN TCC Assessment: Discharge Planning Assessment [id number] Discharge Planning Assessment Completed byFaye Crowe RN TCC Primary Contact Name and NumberJessica-mom(1) Stated Reason for Admissionankle surgery(2) Arrived FromOR (2) PCPDr. Louise Ramseybruna [facility] Adherence/Afford/[place] nyes InsuranceMMO Super Med Resource/Environmental Concernsnone(2) Anticipated Transition [place](2) Services Anticipated at Transitionnone(2) Electronic Signatures: Faye Crowe (CELIA) (Signed 30-Jan-2020 11:39) Authored: Discharge Planning, Assessment Last Updated: 30-Jan-2020 11:39 by Faye Crowe (CELIA) References: 1. Data Referenced From Patient Profile - Preop v2 29-Jan-2020 13:35 2. Data Referenced From Patient Profile - Pediatric v2 29-Jan-2020 19:41 Normal [facility] Discharge [id number] Discharge Profile2 Discharge Orders: Anticipated Discharge Date: Anticipated Discharge [id number] Hospital Providers: Provider RoleProvider Name Thierry Jaffe [...] Care Services Needed: yes Home Care Agency: [facility] [phone] Skilled Disciplines Ordered: RN/KITCHEN DESIGNER, PT Face to Face Encounter Completed: yes [...] Medication Reconciliation and Orders Completedby Physician Reviewing ProviderTiherry Braun DPM at 30-Jan-2020 11:45:21 Name/Contact Info for Questions About Discharge OrdersThierry Braun Electronic Signatures: Nanci Cleary (GERARDO (Fellow)) (Signed 30-Jan-2020 10:47) Authored: Discharge Orders, Hospital Course (Home Care/Gold Form), Provider FINAL REVIEW of Orders, Gold Form - Dado Operator Summary Thierry Braun (EGRARDO) (Signed 30-Jan-2020 11:45) Authored: Home Care Orders, Provider FINAL REVIEW of Orders Faye Crowe (CELIA) (Signed 30-Jan-2020 11:33) Authored: Home Care Orders, Provider FINAL REVIEW of Orders Last Updated: 30-Jan-2020 11:45 by Thierry Braun (GERARDO) [facility] Admission Risk Screen - Pedi atricon 01-29-2020 [...] Able to be Assessed for Learningyes Educational Mgxhg89ut12th grade Factors Influence Readiness to Learnnone, ready to learn Factors Impact Ability to Learncognitive limitations Devices/Methods Used to Communicatenone Learning Preferencesverbal instruction Cultural Considerationsnone Developmental Considerationsnone Anabaptism Considerationsnone Other Learnersmother Learning Assessment (Other Learner): Other learner availableyes Other Learner is Able to be Assessed for Learningyes Learnermother Factors Influencing Readiness to Learnnone, ready to learn Factors that Impact Ability to Learnnone Devices/Methods Used to Communicatenone Learning Preferencesverbal instruction Cultural Considerationsnone Developmental Considerationsnone Anabaptism Considerationsnone Nutrition Risk Screen: Nutrition Screen forpediatric patient Nutrition Risk Screen (2 or more indicators, Order Nutrition Consult)no indicators present Nutrition Consult needed this visitno Can Patient Participate in Room Serviceyes Pain Screen: Pain Scalenumerical 0-10 (1) Pain Scale Educationteaching provided (1) Teaching Provided PedsPain Management PI sheet 391 Current Pain Level0 = None Acceptable Pain [...] Spiritual Screen: Are there any cultural, spiritual, adventist practices/values/needs that are important for us to knowno [place] Suicide Peds: Screen patients 12 yo and [...] prepared to [facility] Su[facility] Risklow Optional Screens: Significant Indicatiors: Significant Indicators: Complete Electronic Signatures: Carmel Muñoz (CELIA) (Signed 29-Jan-2020 19:41) Authored: Admission Screens, Pressure Injury, Optional Screens Last Updated: 29-Jan-2020 19:41 by Carmel Muñoz (CELIA) References: 1. Data Referenced From Patient Profile - Preop v2 29-Jan-2020 13:35 Normal [facility] CORONAVIRUS 2018, SCREEN ASY MPTOMATICon 01-29-2020 CORONAVIRUS 2018,PCR NOT DETECTED Normal Not Detected [facility] Comment on above: Result Comment: This assay is designed to detect the RdRp gene of SARS-CoV-2 via nucleic acid amplification. A Not Detected result does not preclude COVID-19 infection since the adequacy of sample collection and/or low viral burden may result in presence of viral nucleic acids below the clinical sensitivity of this test method. Fact sheet for providers: www.fda.gov/media/102148/download Fact sheet for patients: www.fda.gov/media/076483/download This test has received FDA Emergency Use Authorization (EUA) and has been verified by [facility]. This test is only authorized for the duration of time that circumstances exist to justify the authorization of the emergency use of in vitro diagnostic tests for the detection of SARS-CoV-2 virus and/or diagnosis of COVID-19 infection under section 564(b)(1) of the Act, 21 U.S.C. 360bbb-3(b)(1), unless the authorization is terminated or revoked sooner. [facility] is certified under CLIA-88 as qualified to perform high complexity testing. Testing is performed in the [facility] laboratory located at [address] [place] [address]. Performed By: #### C OVSC #### [facility] [address] [place] [address] Lab Specimen Source Nasal, Nasopharyngeal Normal [facility] Comment on above: Performed By: #### C OVSC #### [facility] [id number] [place] [id number] [facility] Surgical Pathologyon 01-29-2020 [facility] Surgical Pathology Name BLANKA FARIAS Pathologist: THIERRY FONSECA MD Date of Procedure: 01/29/2020 Date Received: 02/01/2020 Date Reported 02/05/2020 Submitting Physician: THIERRY BRAUN DPM Location: [facility] Surg Other External # FINAL DIAGNOSIS [...] No grossly necrotic bone is identified. A parts sales representative section is submitted in one cassette following decalcification. CJN Gross dissection performed at: [facility] Department of Pathology [address] [place] [address] cjn/02/01/2020 [facility] Department of Pathology [address] [place] [address] Normal [facility] Comment on above: Performed By: #### G SP ####[facility] Surgical [address] [place] [address] Operative Reports - [facility] 01-29-2020 [place] [address] Patient Name: BLANKA FARIAS : 2000 Date of Service: 01/29/2020 Patient Location: [place] [id number] Patient Type: O Surgeon: Thierry Braun DPM Report Type: Operative Reports LOCATION: [facility]. SURGEON: Thierry Braun DPM ENVIRONMENTAL COMPLIANCE ENGINEER(S): 1. Nanci Cleary DPM PGY-5 2. Az [...] options. She was sent to me from [place], [place] for second opinion, and the patient [...] distal medial malleolus, and we did a uvqi-exih-qpri repair of the ligament, keeping it tight. [...] make a contact in her area in [place], [place] to do some followup. Thierry Braun DPM EST TT: 01/31/2020 09:56 AM EST DICTATION NUMBER: [id number] HANY JOB NUMBER: [id number] CC: LOUISE LEMOS Electronic Signatures: Thierry Braun (GERARDO) (Signed on 05-Feb-2020 06:35) Authored Unsigned, Draft (SYS GENERATED) (Entered on 31-Jan-2020 09:56) Entered Last Updated: 05-Feb-2020 06:35 by Thierry Braun (GERARDO) [facility] Patient Profile - Pediatric v2on 01-29-2020 Patient Profile - Pediatric v2 Profile: Initial Info: How to be AddressedMartina(1) Parent NameJessica Spoken Language PreferredEnglish (1) Source of Informationpatient; family Legal Custodianmother Are you currently using the Personal Electronic Health Record or Smartzerno Are you interested in learning more about TransEnterixCARE for the management of your healthnot at [...] Concernsnone Primary Caregivermother Lives Withmother [facility] Anticipated at Transitionnone School/Nvngulo83lg grade/high school senior Concerns Regarding School Performance/Peer [...] Profile - Preop v2 29-Jan-2020 13:35 Normal [facility] Patient Profile - Preop v2on 01-29-2020 Patient Profile - Preop v2 Profile: Initial Info: How to be AddressedMartina Spoken Language PreferredEnglish Are you currently using the Personal Electronic Health Record or Smartzerno Are you interested in learning more about Wylei, LLCCARE for the management of your healthdeclined Stated [...] Learning Preferencesverbal instruction Cultural Considerationsnone Developmental Considerationsnone Anabaptism Considerationsnone Other learner availableno Falls RiskPatient location auto qualifies him/her for HIGH RISK. Are there any cultural, spiritual, adventist practices/values/needs that are important for us to [...] Updated: 29-Jan-2020 14:14 by Sandrine Jack) Normal [facility] Preop Checkliston 01-29-2020 Preop Checklist Preop Checklist: Preop Checklist: Arrival [id number] Arrival Time11:29 Procedure TypeL foot osteotomy NPO [id number] 00:00 ID Band Onyes Consent Signedyes H&P [...] Language / CommunicationEnglish Electronic Signatures: Sandrine Jack (ERNIQUETA) (Signed 29-Jan-2020 13:27) Authored: Preop Checklist Last Updated: 29-Jan-2020 13:27 by Sandrine Jack (ENRIQUETA) Normal [facility] MRI ANKLE LEFT WO CONTRASTon 02-09-2019 1. 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 2. Mild degenerative changes of the tibiotalar joint. 3. No acute fracture or dislocation. No acute ligamentous injury. [facility], [place] EXAMINATION: MRI OF THE LEFT ANKLE WITHOUT [...] collection identified within the visualized soft tissues. [facility]- [place], [place] Le[place]oy, [facility] Incoming Radiant Results From Interactivo/MapMyID - 02/09/2019 9:18 AM EDT EXAMINATION: MRI [...] or dislocation. No acute ligamentous injury. [facility], [place] Vital Signs Date Time Vital Sign Value Performing Clinician Facility 04-07-2024 17:17-0500 Diastolic blood pressure 82 mm[Hg] Thierry Braun DPM Work Phone: [facility] 04-07-2024 17:17-0500 Heart rate 92 /min Thierry Mendeszoon DPM Work Phone: [facility] 04-07-2024 17:17-0500 Respiratory rate 17 /min Thierry Reyeszoon DPM Work Phone: [facility] 04-07-2024 17:17-0500 SaO2% (BldA) [Mass fraction] 98 % Thierry Reyeszoon DPM Work Phone: [facility] 04-07-2024 17:17-0500 Systolic blood pressure 121 mm[Hg] Thierry Reyeszoon DPM Work Phone: [facility] 04-07-2024 16:47-0500 Body temperature 97.2 [degF] Thierry Schumachereszoon DPM Work Phone: [facility] 04-07-2024 11:19-0500 Body height 172.7 cm Thierry Reyeszoon DPM Work Phone: [facility] 04-07-2024 11:19-0500 Body mass index (BMI) [Ratio] 31.93 kg/m2 Thierry Schumachereszoon DPM Work Phone: [facility] 04-07-2024 11:19-0500 Body weight 95.25 kg Thierry Schumachereszoon DPM Work Phone: [facility] 03-18-2024 12:49-0500 Body height 172.7 cm Thierry Reyeszoon DPM Work Phone: [facility] 03-18-2024 12:49-0500 Body mass index (BMI) [Ratio] 32.69 kg/m2 Thierry Schumachereszoon DPM Work Phone: [facility] 03-18-2024 12:49-0500 Body temperature 98.1 [degF] Thierry Schumachereszoon DPM Work Phone: [facility] 03-18-2024 12:49-0500 Body weight 97.52 kg Thierry Schumachereszoon DPM Work Phone: [facility] 03-18-2024 12:49-0500 Diastolic blood pressure 77 mm[Hg] Thierry Braun DPM Work Phone: [facility] 03-18-2024 12:49-0500 Heart rate 68 /min Thierry Braun DPM Work Phone: [facility] 03-18-2024 12:49-0500 Respiratory rate 17 /min Thierry Braun DPM Work Phone: [facility] 03-18-2024 12:49-0500 SaO2% (BldA) [Mass fraction] 97 % Thierry Braun DPM Work Phone: [facility] 03-18-2024 12:49-0500 Systolic blood pressure 135 mm[Hg] Thierry Braun DPM Work Phone: [facility] 02-07-2024 11:53-0400 Body height 172.72 cm Thierry Braun Work Phone: [facility] 02-07-2024 11:53-0400 Body mass index (BMI) [Ratio] 31.17 kg/m2 Thierry Braun Work Phone: [facility] 02-07-2024 11:53-0400 Body weight 92.99 kg Thierry Braun Work Phone: [facility] 10-07-2021 15:08-0400 Body height 172.7 cm Chuy Jacobson MD Work Phone: [employer] 10-07-2021 15:08-0400 Body mass index (BMI) [Percentile] Per age and sex 92.12 % Chuy Jacobson MD Work Phone: [employer] 10-07-2021 15:08-0400 Body mass index (BMI) [Ratio] 28.89 kg/m2 Chuy Jacobson MD Work Phone: [employer] 10-07-2021 15:08-0400 Body temperature 97.81 [degF] Chuy Jacobson MD Work Phone: [facility] [employer] 10-07-2021 15:08-0400 Body weight 86.18 kg Chuy Jacobson MD Work Phone: [facility] [employer] 10-07-2021 15:08-0400 Diastolic blood pressure 79 mm[Hg] Chuy Jacobson MD Work Phone: [facility] [employer] 10-07-2021 15:08-0400 Heart rate 99 /min Chuy Jacobson MD Work Phone: [facility] [employer] 10-07-2021 15:08-0400 Respiratory rate 16 /min Chuy Jacobson MD Work Phone: [facility] [employer] 10-07-2021 15:08-0400 SaO2% (BldA) [Mass fraction] 100 % Chuy Jacobson MD Work Phone: [facility] [employer] 10-07-2021 15:08-0400 Systolic blood pressure 125 mm[Hg] Chuy Jacobson MD Work Phone: [facility] [employer] 06-13-2020 16:30-0500 BP Diastolic 71 mm[Hg] [employer] Work Phone: 06-13-2020 16:30-0500 BP Systolic 148 mm[Hg] Faye [employer] Work Phone: 06-13-2020 16:30-0500 Pulse (Heart Rate) 61 /min [employer] Work Phone: 06-13-2020 16:30-0500 Pulse Oximetry 97 % [employer] Work Phone: 06-13-2020 16:30-0500 Respiratory Rate 20 /min [employer] Work Phone: 06-13-2020 13:53-0500 Body Temperature 98.91 [degF] [employer] Work Phone: 06-13-2020 13:53-0500 Body weight 99.79 kg Faye Lemus [employer] Work Phone: 01-26-2019 18:28-0400 Body Temperature 97.3 [degF] Louise Lemos [employer] [facility], GREG 01-26-2019 18:28-0400 BP Diastolic 81 mm[Hg] Louise Lemos [employer] , GREG 01-26-2019 18:28-0400 BP Systolic 176 mm[Hg] Louise Lemos [employer] , GREG 01-26-2019 18:28-0400 Pulse (Heart Rate) 98 /min Louise [employer], GREG 01-26-2019 18:28-0400 Pulse Oximetry 98 % Louise Lemos [employer] , GREG 01-26-2019 18:28-0400 Respiratory Rate 15 /min Louise Lemos [email or web address] [facility], [place]REG Encounters Encounter Date Encounter Type Care Provider Facility Start: 01-07-2025 End: 01-07-2025 ambulatory [facility] Start: 01-04-2025 ambulatory Thierry J Mendeszoon [facility] Start: 12-02-2024 ambulatory Thierry J Mendeszoon [facility] Start: 11-27-2024 ambulatory Thierry J Mendeszoon [facility] Start: 11-24-2024 ambulatory Thierry J Mendeszoon [facility] Start: 11-20-2024 ambulatory Thierry J Mendeszoon [facility] Start: 11-19-2024 ambulatory Thierry J Mendeszoon [facility] Start: 11-16-2024 ambulatory Thierry J Mendeszoon [facility] Start: 10-19-2024 ambulatory Thierry J Mendeszoon [facility] Start: 10-09-2024 ambulatory Thierry J Mendeszoon [facility] Start: 10-02-2024 ambulatory Thierry J Mendeszoon [facility] Start: 09-22-2024 End: 09-22-2024 ambulatory LOUISE [facility]us [facility] Start: 09-22-2024 End: 09-22-2024 Subsequent hospital visit by physician Louise Lemos MD Work Phone: [facility] Start: 09-22-2024 End: 09-22-2024 [facility] Start: 09-22-2024 End: 09-22-2024 Encounter for general adult medical examination without abnormal findings [facility] Start: 09-22-2024 End: 09-22-2024 Subsequent hospital visit by physician Louise Lemos MD Work Phone: [facility] Start: 09-11-2024 ambulatory Thierry Briggs Mendeszoon [facility] Start: 09-04-2024 ambulatory Thierry Briggs Mendeszoon [facility] Start: 08-31-2024 ambulatory Thierry Briggs Mendeszoon [facility] Start: 08-27-2024 ambulatory Thierry Brigitte Mendeszoon [facility] Start: 08-24-2024 End: 08-24-2024 ambulatory Louise Lemos MD [facility] Start: 08-12-2024 ambulatory Thierry Briggs Mendeszoon [facility] Start: 08-10-2024 End: 08-12-2024 ambulatory LOUISE Lemus [facility] Start: 08-10-2024 End: 08-12-2024 Subsequent hospital visit by physician Isaias Mejia Dr Room 2 [facility] Radiology Comment on above: Left ankle pain, uns pecified chronicity Left ankle pain, uns pecified chronicity; Pain Start: 08-06-2024 End: 08-08-2024 ambulatory LOUISE Lemus [facility] Start: 08-06-2024 End: 08-08-2024 Subsequent hospital visit by physician Isaias Mejia Dr Room 2 [facility] Radiology Comment on above: Left knee pain, unsp ecified chronicity Start: 08-06-2024 ambulatory Thierry Schumachereszobrett [facility] Start: 08-06-2024 ambulatory Thierry J Mendeszoon [facility] Start: 07-20-2024 End: 07-20-2024 ambulatory LOUISE LEMOS [facility] Start: 07-20-2024 End: 07-20-2024 Subsequent hospital visit by physician Louise Lemos MD Work Phone: [facility] Start: 07-13-2024 ambulatory Thierry Reyeszoon [facility] Start: 06-01-2024 ambulatory Thierry Reyeszoon [facility] Start: 05-20-2024 End: 05-20-2024 Encounter identifier Thierry Braun Work Phone: [facility] Start: 05-20-2024 ambulatory Thierry Reyeszoon [facility] Start: 05-07-2024 End: 05-07-2024 Encounter identifier [facility] Work Phone: Start: 05-05-2024 End: 05-05-2024 Postop follow up visit related to original px Thierry Braun DPM [facility] Start: 05-05-2024 End: 05-05-2024 Encounter identifier Thierry Braun Work Phone: [facility] [place] [facility] Start: 05-05-2024 ambulatory Thierry Schmitzon [facility] Start: 04-30-2024 End: 04-30-2024 Encounter identifier Thierry Braun Work Phone: [facility] Start: 04-30-2024 ambulatory Thierry Reyeszoon [facility] Start: 04-27-2024 End: 04-27-2024 Encounter identifier Thierry Braun Work Phone: [facility] Start: 04-27-2024 ambulatory Thierry Reyeszoon [facility] Start: 04-24-2024 End: 04-24-2024 Encounter identifier Thierry Braun Work Phone: [facility] Start: 04-24-2024 ambulatory Thierry Braun [facility] Start: 04-24-2024 End: 04-24-2024 Encounter identifier Thierry Braun Work Phone: [facility] Start: 04-24-2024 ambulatory Thierry Braun [facility] Start: 04-23-2024 End: 04-23-2024 Encounter identifier Thierry Braun Work Phone: [facility] Start: 04-23-2024 ambulatory Thierry Braun [facility] Start: 04-14-2024 End: 04-14-2024 Encounter identifier [facility] [place] Start: 04-14-2024 End: 04-14-2024 Postop follow up visit related to original px Thierry Reyeslubrett DPM [facility] Start: 04-14-2024 ambulatory Thierry Braun [facility] Start: 04-13-2024 End: 04-13-2024 Encounter identifier Thierry Braun Work Phone: [facility] Start: 04-13-2024 ambulatory Thierry Braun [facility] Start: 04-09-2024 End: 04-09-2024 Encounter identifier Thierry Braun Work Phone: [facility] Start: 04-09-2024 ambulatory Thierry Braun [facility] Start: 04-08-2024 End: 04-08-2024 Encounter identifier Thieryr Braun Work Phone: [facility] Start: 04-08-2024 ambulatory Thierry Braun [facility] Start: 04-07-2024 End: 04-07-2024 ambulatory THIERRY Brigitte RE[facility]ESMICHELE [facility] Start: 04-07-2024 End: 04-07-2024 Subsequent hospital visit by physician Thierry Braun DPM Work Phone: [facility] [place] Comment on above: Secondary osteoarthr itis, left ankle and foot Start: 04-07-2024 End: 04-07-2024 Encounter identifier Thierry Braun Work Phone: [facility] Start: 04-07-2024 ambulatory Thierry Braun [facility] Start: 04-06-2024 End: 04-06-2024 ambulatory LOUISE Blanchardy [facility] Start: 04-06-2024 End: 04-06-2024 Subsequent hospital visit by physician Louise Lemos MD Work Phone: [facility] Start: 04-02-2024 [facility] Start[facility] 03-23-2024 End: 03-23-2024 ambulatory LOUISE Schneider [facility] Start: 03-23-2024 End: 03-23-2024 Subsequent hospital visit by physician Louise Lemos MD [facility] Start: 03-21-2024 End: 03-21-2024 ambulatory LOUISE LEMOS [facility] Start: 03-21-2024 End: 03-21-2024 Subsequent hospital visit by physician Louise Lemos MD Work Phone: [facility] Start: 03-19-2024 End: 03-19-2024 ambulatory LOUISE LEMOS [facility] Start: 03-19-2024 End: 03-19-2024 Subsequent hospital visit by physician Louise Lemos MD Work Phone: [facility] Start: 03-19-2024 End: 03-19-2024 Encounter identifier Thierry Braun Work Phone: [facility] Start: 03-19-2024 ambulatory Thierry Braun [facility] Start: 03-18-2024 End: 03-18-2024 [facility] Start: 03-18-2024 End: 03-18-2024 Subsequent hospital visit by physician Thierry Braun DPM Work Phone: [facility] [place] Start: 03-18-2024 End: 03-18-2024 Encounter identifier Thierry Braun Work Phone: [facility] Start: 03-18-2024 ambulatory Thierry Braun [facility] Start: 03-17-2024 End: 03-17-2024 Encounter identifier Thierry Braun Work Phone: [facility] Start: 03-17-2024 ambulatory Thierry Reyeszoon [facility] Start: 03-16-2024 End: 03-16-2024 Encounter identifier Thierry Braun Work Phone: [facility] Start: 03-16-2024 ambulatory Thierry Schmitzon [facility] Start: 03-11-2024 End: 03-11-2024 ambulatory [facility] Start: 03-10-2024 End: 03-10-2024 Encounter identifier Thierry Braun Work Phone: [facility] Start: 03-10-2024 End: 03-10-2024 Encounter identifier Thierry Braun Work Phone: [facility] Start: 03-10-2024 ambulatory Thierry Reyeszoon [facility] Start: 03-10-2024 ambulatory Thierry Braun [facility] Start: 02-27-2024 End: 02-27-2024 Encounter identifier Thierry Braun Work Phone: [facility] Start: 02-27-2024 ambulatory Thierry Reyeszoon [facility] Start: 02-14-2024 End: 02-14-2024 Encounter identifier Thierry Braun Work Phone: [facility] Start: 02-13-2024 End: 02-13-2024 Encounter identifier Thierry Braun Work Phone: [facility] Start: 02-12-2024 End: 02-12-2024 Encounter identifier Thierry Braun Work Phone: [facility] Start: 02-12-2024 End: 02-12-2024 Encounter identifier Thierry Braun Work Phone: [facility] Start: 02-10-2024 End: 02-10-2024 Encounter identifier Thierry Braun Work Phone: [facility] Start: 02-07-2024 End: 02-07-2024 Encounter identifier Thierry Braun Work Phone: [facility] Start: 02-07-2024 End: 02-07-2024 Office outpatient new 45 minutes Thierry Braun Work Phone: [facility] Start: 01-30-2024 End: 01-30-2024 Encounter identifier Thierry Braun Work Phone: [facility] Start: 10-14-2023 End: 10-16-2023 ambulatory FIONA GAGNON [facility] Start: 10-14-2023 End: 10-16-2023 Subsequent hospital visit by physician Isaias Cat Scan Room [facility] CT Scan Comment on above: Arthrodesis status; Left ankle pain, unspecified chronicity; Osteoarthritis of left ankle or foot Start: 09-13-2023 End: 09-15-2023 Subsequent hospital visit by physician Isaias Mejia Dr Room 2 [facility] Radiology Comment on above: Left ankle pain, uns pecified chronicity Start: 09-05-2023 End: 09-05-2023 Subsequent hospital visit by physician Louise Lemos MD Work Phone: [facility] Start: 08-01-2023 Transcribe Orders Alejandra Galeano MA [facility], Neuro[facility] Comment on above: Herniated nucleus pu lposus, lumbar (Primary Dx) Start: 07-26-2023 End: 07-26-2023 Patient encounter procedure DO Hunter Richards Work Phone: [facility] Work Phone: Start: 07-26-2023 End: 07-26-2023 ambulatory Hunter Richards [facility] Work Phone: Start: 07-26-2023 Patient encounter procedure DO Hunter Richards Work Phone: [facility] Start: 06-27-2023 End: 06-29-2023 Subsequent hospital visit by physician Louise Lemos MD Work Phone: [facility] Start: 08-29-2022 End: 08-29-2022 Subsequent hospital visit by physician Louise Lemos MD Work Phone: [facility] Start: 06-20-2022 End: 06-22-2022 Subsequent hospital visit by physician Isaias Mejia Dr Room 4 [facility] Radiology Comment on above: Pain Start: 03-09-2022 End: 03-09-2022 ambulatory LOUISE LEMOS Facility:[facility] Start: 03-09-2022 End: 03-09-2022 Patient encounter procedure Sharona Hoffman DPM Work Phone: Orthopaedics Comment on above: Chronic pain of both ankles (Primary Dx); Altered gait; Bilateral congenital genu valgum; Osteochondral lesion of talar dome; Peroneal tendinitis of right lower extremity; Sinus tarsi syndrome of right ankle; Gastrocnemius equinus, unspecified laterality Start: 03-09-2022 End: 03-09-2022 Subsequent hospital visit by physician Jackie Beltran Work Phone: Radiology Start: 03-07-2022 End: 03-09-2022 Subsequent hospital visit by physician Isaias Mejia Dr Room 2 [facility] Radiology Comment on above: Right wrist pain Start: 02-19-2022 End: 02-19-2022 Subsequent hospital visit by physician Louise Lemos MD Work Phone: [facility] Start: 02-07-2022 End: 02-07-2022 ambulatory RK RENDON Facility:[facility] Start: 02-07-2022 End: 02-07-2022 Patient encounter procedure Rk Rendon DPM Work Phone: Orthopaedics Comment on above: OCD (osteochondritis dissecans) of ankle (Primary Dx); Chronic pain of right ankle Start: 01-18-2022 End: 01-19-[address] LOUISE LEMOS . Facility:[facility] Start: 01-12-2022 End: 01-13-[address] LOUISE LEMOS . Facility:[facility] Start: 01-02-2022 End: 01-02-2022 Subsequent hospital visit by physician Louise Lemos MD Work Phone: [facility] Start: 11-21-2021 End: 11-22-[address] LOUISE LEMOS . Facility:H1 Start: 11-10-2021 End: 11-11-[address] LOUISE LEMOS . Facility:[facility]1 Start: 11-02-2021 End: 11-03-[address] LOUISE LEMOS . Facility:[facility]1 Start: 10-27-2021 End: 10-28-[address] LOUISE LEMOS . Facility:[facility]1 Start: 10-07-2021 End: 10-07-2021 Emergency department patient visit Chuy Jacobson MD Work Phone: [facility] ED Comment on above: Elevated lactic acid level (Primary Dx); Leukocytosis, unspecified type; Abscess; History of miscarriage Start: 07-20-2021 End: 07-22-2021 Subsequent hospital visit by physician Isaias Ultrasound Room [facility] Ultrasound Comment on above: Urinary tract infect ion without hematuria, site unspecified; Retention of urine, unspecified Start: 07-15-2021 End: 07-15-2021 Subsequent hospital visit by physician Louise Lemos MD Work Phone: [facility] Start: 07-12-2021 End: 07-12-2021 Subsequent hospital visit by physician Louise Lemos MD Work Phone: [facility] Start: 06-20-2021 Transcribe Orders Danni Vogel [facility], Neuroscience Comment on above: Low back pain, unspe cified back pain laterality, unspecified chronicity, unspecified whether sciatica present (Primary Dx) Start: 01-19-2021 End: 01-19-2021 Subsequent hospital visit by physician Louise Lemos MD Work Phone: [facility] Respiratory Therapy Start: 10-03-2020 End: 10-03-2020 Subsequent hospital visit by physician Louise Lemos MD Work Phone: [facility] Start: 10-01-2020 End: 10-01-2020 Subsequent hospital visit by physician Louise Lemos MD Work Phone: [facility] Start: 08-26-2020 End: 08-28-2020 Subsequent hospital visit by physician Isaias Xr Dr Room 2 [facility] Radiology Comment on above: Leach syndrome, le ft; Osteochondritis dissecans of ankle, left Start: 06-13-2020 Emergency department patient visit [facility] Start: 06-13-2020 End: 06-13-2020 Emergency department patient visit Faye Go Work Phone: [facility] ED Comment on above: Trapezius strain, le ft, initial encounter (Primary Dx) Start: 12-15-2019 End: 12-17-2019 Subsequent hospital visit by physician Isaias Cat Scan Room [facility] CT Scan Comment on above: Arrived Start: 02-09-2019 End: 02-11-2019 Subsequent hospital visit by physician Isaias Mri Scanner [facility] MRI Comment on above: Sprain of tibiofibul ar ligament of left ankle, sequela Start: 01-26-2019 End: 01-26-2019 Emergency department patient visit [facility] ED Comment on above: Acute left ankle evangelina n (Primary Dx) Procedures Date Procedure Procedure Detail Performing Clinician Start: 09-22-2024 Comprehensive metabo lic panel Louise Lemos MD Work Phone: Start: 09-22-2024 Lipid panel Louise Lemos MD Work Phone: Start: 08-10-2024 End: 08-10-2024 Radiologic examination ankle 2 views Louise Lemos MD Work Phone: Start: 08-06-2024 Radiologic examinati on knee 1/2 views Louise Lemos MD Work Phone: Start: 07-20-2024 Urinalysis microscopic only Louise Lemos MD Work Phone: Start: 07-20-2024 Urnls dip stick/tabl et rgnt auto w/o microscopy Louise Lemos MD Work Phone: Start: 05-05-2024 End: 05-05-2024 Orthotics mgmt & traing initial enctr ea 15 mins Thierry Braun DPM Start: 05-05-2024 End: 05-05-2024 Pneuma/vac walk boot pre ots Thierry wood DPM Start: 05-05-2024 End: 05-05-2024 Radex ankle complete minimum 3 views Thierry Braun DPM Start: 04-23-2024 End: 04-23-2024 Medical Records Copies Thierry Bauman PM Start: 04-14-2024 End: 04-14-2024 Application short leg cast below knee-toe Thierry Braun DPM Start: 04-14-2024 End: 04-14-2024 Cast sup shrt leg fiberglass Thierry wood DPM Start: 04-14-2024 End: 04-14-2024 Radex foot complete minimum 3 views Thierry Braun DPM Start: 04-07-2024 PULSE OXIMETRY, CONTINUOUS Familia Garcia PA-C Work Phone: Start: 04-07-2024 End: 04-07-2024 Arthrodesis ankle open Thierry Bauman PM Start: 04-07-2024 End: 04-07-2024 Removal implant deep Thierry Braun DPM Start: 04-06-2024 Gonadotropin chorion ic qualitative Louise Lemos MD Work Phone: Start: 04-06-2024 Urinalysis microscopic only Louise Lemos MD Work Phone: Start: 04-06-2024 Urnls dip stick/tabl et rgnt auto w/o microscopy Louise Lemos MD Work Phone: Start: 03-23-2024 Gonadotropin chorion ic quantitative Louise Lemos MD Work Phone: Start: 03-21-2024 Gonadotropin chorion ic quantitative Louise Lemos MD Work Phone: Start: 03-19-2024 Gonadotropin chorion ic quantitative Louise Lemos MD Work Phone: Start: 03-18-2024 Gonadotropin chorion ic quantitative Familia Garcia PA-C Work Phone: Start: 03-18-2024 Cul prsmptv pthgnc o rganism scrn w/colony estimj Familia Garcia PA-C Work Phone: Start: 03-18-2024 Urine test visual color cmprsn meths Familia Garcia PA-C Work Phone: Start: 10-14-2023 Ct lower extremity w /o contrast material Fiona HOWARD Work Phone: Start: 09-13-2023 Radiologic examinati on ankle 2 views Louise Lemos MD Work Phone: Start: 09-05-2023 25 hydroxy includes fractions if performed Louise Lemos MD Work Phone: Start: 08-29-2022 Urnls dip stick/tabl et reagent auto microscopy Louise Lemos MD Work Phone: Start: 06-20-2022 Radex wrist complete minimum 3 views Louise Lemso MD Work Phone: Start: 03-07-2022 Radex wrist [...] Treatment Date Care Activity Detail Author Start: 2052 Zoster Vaccines (1 of 2) Zoster Vaccines (1 of 2) [facility] Start: 10-25-2029 DTaP/Tdap/Td vaccine (5 - Td or Tdap) DTaP/Tdap/Td vaccine (5 - Td or Tdap) [facility] Start: 10-25-2029 DTaP/Tdap/Td vaccine (5 - Td) DTaP/Tdap/Td vaccine (5 - Td) [facility] [employer] Work Phone: Start: 10-25-2029 DTaP/Tdap/Td vaccine (8 - Td or Tdap) DTaP/Tdap/Td vaccine (8 - Td or Tdap) [facility] Start: 10-25-2029 DTaP/Tdap/Td vaccine (8 - Td) DTaP/Tdap/Td vaccine (8 - Td) [facility] [place] Start: 10-25-2029 DTaP/Tdap/Td Vaccines (8 - Td or Tdap) DTaP/Tdap/Td Vaccines (8 - Td or Tdap) [facility] Start: 10-25-2029 Urine microalbumin profile DTaP,Tdap,Td Vaccine (8 - Td or Tdap) [facility] Start: 11-27-2024 Influenza vaccination Flu vaccine (Season Ended) [facility] Start: 10-27-2024 End: 10-27-2024 Patient encounter procedure 10/27/2024 1:00 PM EDT Office Visit [facility] Part of [address]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 the talonavicular joint using curettes osteotomes and rotary bur. Once the cartilage was removed we are able to fenestrate the bone after irrigation. We now took a dorsal part of the talus down to keep it flat and we used Conmed krista and krista to complex read. We loaded the talonavicular joint and there was no motion and it was stable. We now are able to take a 3 5 drill bit and fenestrate some holes near the ankle joint. We are ableto start the procedure by harvesting 20 cc of bone marrow aspirate and then we had cc of Biologics Jorge bone graft. And we submerged this into the B MAC. Prior to fusing the talonavicular joint we placed the graft and the B MAC and the interface of the joint. On the medial side where we try to attempt to take the screws out there was a little void and we filled this and and then we made the tunnel holes from anterior to posterior medial to lateral and injected the putty and these tunnel holesto fill and to allow continue arthrodesis of the ankle joint. We examined the subtalar joint subtalar joint had adequate motion and we did not want to disturb the subtalar joint. The foot was held at 90 degrees. There was no motion of the ankle joint. No motion of the talonavicular joint. And for security we placed 2 krista 1 measuring 25 and 1 measuring 20 to lock up the ankle joint. We let the tourniquet down. Control bleeding with the Bovie. Irrigated with saline solutio n. The superficial peroneal nerve interface which was stable we then took a 4 x 8 and collagen dermatological graft and placed this over the nerve over the skin so we would not have significant adhesions or scar tissue postoperatively. This was controlled with a 2-0 Vicryl suture. We stressed the ankle there was no motion of the TN joint or ankle joint it was at 90 degrees the toes are pink and healthy bleeding was well-controlled a sterile dressing was applied and a posteriorsplint applied. Patient tolerated procedure anesthesia well. A 90 degrees splint was applied. Patient be discharged to PACU then discharged home. Patient will be casted for at least 2 months. Will see if we get the patient a bone stimulator. I do not think the patient will ever be purposely pain-free and hoping this helps and we may even have to consider pain management afterwards. Should the patient have any problems she will call we will discharge her home to [place] he will be discharged withwritten and verbal instructions Complications: None; patient tolerated the procedure well. Disposition: PACU - hemodynamically stable. Condition: stable Task Performed by DEICER REPAIRER PNEUMATIC or Occasional Caregiver: Systems help assist with the case to ensure superior outcome of the procedure Task Performed by RALPH Veterinary Surgery Technician or Physician Medication Specialist: Urbano Garcia and osman Miller/CANDACE, was necessary to assist on this case due to the nature of thecase and difficulty. During the case served as my throughout the case Additional Details: Once again due to the fact that the screws were not advancing from the ankle joint and there was no motion we elected not to destroy the remaining bone destabilize the ankle jointand therefore we did not use the intramedullary nail. We are able to use the talonavicular joint tostabilize the foot and keep it at 90 degrees and reduce the arthritis on the dorsal talonavicular joint and to stabilize the ankle. We decompressed the nerve and hopefully this will help with patientlong-term emotional be perfect the goal to get her into a brace and to be able to tolerate this condition. 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 CPT code 06208 Removal CPT code 47690 Scar revision right foot CPT code 00091 Superficial peroneal nerve peripheral nerve interface CPT code 44327 Application posterior splint right leg CPT code 42201 Surgeons * Thierry Braun - Primary Resident/Fellow/Other Medication Specialist: Surgeons and Role: Lauro HOWARD; Osman HOWARD* No surgeons found with a matching role * Staff: Health Care Consultant: Mignon Conroy Person: Huma Conroy Person: Tricia Health Care Consultant: Nani Occasional Caregiver: Osman Rodriguez Health Care Consultant: Meena Rodriguez Health Care Consultant: Kayy Anesthesia Staff: ORNAMENTAL METAL ERECTOR: Juancarlos Valentino APRN-ORNAMENTAL METAL ERECTOR; Bee Garner APRN-ORNAMENTAL METAL ERECTOR Procedure Summary Anesthesia: Regional, General ASA: II Estimated Blood Loss: 30 mL Intra-op Medications: Administrations occurring from 1217 to 1512 on 04/07/24: Medication Name Total Dose heparin (porcine) injection 5,000 Units dexAMETHasone (Decadron) injection 4 mg/mL 8 mg lidocaine PF (Xylocaine-MPF) local injection 2 % 200 mg midazolam PF (Versed) injection 1 mg/mL 2 mg propofol (Diprivan) IV infusion 200 mg ropivacaine PF (Naropin) 0.5 % 40 mL NaCl 0.9 % bolus Cannot be calculated ceFAZolin (Ancef) 2 g in dextrose (iso) IV 50 mL 2 g lidocaine PF (Xylocaine) injection 20 mg/mL (2 %) - Omnicell Override Pull Cannot be calculated povidone-iodine 5 % kit kit 1 Application Anesthesia Record Intraprocedure I/O Totals Intake Propofol Drip 0.00 mL The total shown is the total volume documented since Anesthesia Start was filed. Total Intake 0 mL Specimen: ID Type Source Tests Collected by Time 1 : SUPERFICIAL PERONEAL NERVE Tissue SOFT TISSUE BIOPSY SURGICAL PATHOLOGY EXAM Thierry Brigitte Jourdan,GERARDO 04/07/2024 1544 Drains and/or Catheters: * None in log *drains none Tourniquet Times: Thigh tourniquet left side 114 minutes at 250 mm's Total Tourniquet Time Documented: Thigh (Left) - 114 minutes Total: Thigh (Left) - 114 minutes Implants: [employer] multiple krista and krista. App Press Jorge bone graft. Bone marrow aspirate Implants Type Name Action Serial No. Implant KIT, BONE MARROW ASPIRATION AND PREP ACCESSORIES - [id number] Used, Not Implanted Screw WIRES, NAN, STYLE 7, (.062 IN) 1.60MM RHONDA X 15.2MM - [id number] Used, Not Implanted Graft ALLOGRAFT, JORGE 10CC - [id number] Implanted NeoSpan Compression Implant System Implanted Implant STAPLE, NEOSPAN, COMPRESSION, [id number], W/INSTRUMENTS, STERILE - [id number] Implanted Implant STAPLE, NEOSPAN, COMPRESSION, [id number], W/INSTRUMENTS, STERILE - [id number] Implanted Neospan Compression Implant System [id number] Used, Not Implanted Neospan Compression Implant System 25mmx 22mm Used, Not Implanted Graft ALLOGRAFT, DERMAL MATRIX, MESHED, 4 X 8CM, HYDRATED - [id number] - [id number] Implanted [id number] Findings: Reviewed hypermobile talonavicular joint with significant subluxation. Dorsal navicular arthritis. Overgrowth over the screws. That the majority of the ankle joint was united and fused. C arm live pictures did not show any motion of the ankle joint but excessive motion of the talonavicular joint significant scar tissue from previous surgery on the skin and also entrapping the peripheralsuperficial nerve Indications: Blanka Farias is an 23 y.o. 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 Patient is here for limb salvage surgery. Patient understands thatshe is at risk for amputation which was thinking about having we applied the patient and try to do 1 more procedure to try to stabilize her foot and ankle and minimize the pain. No guarantees were given please see office notes The patient was seen in the preoperative area. The risks, benefits, complications, treatment options, non-operative alternatives, expected recovery and outcomes were discussed with the patient. The possibilities of reaction to medication, pulmonary aspiration, injury to surrounding structures, bleeding, recurrent infection, the need for additional procedures, failure to diagnose a condition, and creating a complication requiring transfusion or operation were discussed with the patient. The patient concurred with the proposed plan, giving informed consent. The site of surgery was properly noted/marked if necessary per policy. The patient has been actively warmed in preoperative area. Preopera tive antibiotics have been ordered and given within 1 hours of incision. Venous thrombosis prophylaxis have been ordered including chemical prophylaxis Procedure Details: Patient seen in preop holding. Consent signed. Extremity marked. Reviewed indication risk and benefits of surgery. No guarantees given outcome to surgery patient understands if this does not work she is at risk of amputation. She signed a consent form received regional block receive IV antibiotics brought to the operating table. Patient brought to operative table. Timeout performed. Patient placed under general anesthesia. IV antibiotics delivered. The patient tourniquet applied to. Left side. Patient was sterilely prepped and draped after IV antibiotics with Betadine soap and Betadine paint from the toes to the knee. The leg was exsanguinated tourniquet was set up. We made 125 mm incision by 1-1/2 cm removing the significant anterior scar tissue. There is very adhesed and lysis of underlying the skin. We had to dissect the scar tissue in which the extensor tendon and tibialis anterior tendon was significantly adhesed and scarred down. We mobilized the tendon to remove his much scar tissue as possible protected the neurovascular structures. It was noted thatthe superficial peroneal nerve proximally looked healthy but underneath the scar site it was severely trapped with his branches with scar tissue. It did not look healthy. Now are able to take a segment of the nerve send this to pathology and then take and transected nerve root was healthy and do a regional peripheral nerve interface taken a little tibialis anterior muscle taken place in the Muscle Sewing It in on Top Nerve and Then during the Nerve into the Tibialis Anterior Muscle Belly. We Now Are Able to See the Anterior Plate Which Remove the Scar Tissue Anterior Plate Came off Quite Well. And We Put the Ankle Joint through Range Of Motion and There Appear to Be No Ankle Joint Motion but Excessive Talonavicular Joint Motion with the Navicular Was Severely Impacting the Head of the Talus and Dorsiflexion for Dorsal Navicular Arthritis. Rest the Ankle Aggressively under AP Oblique and C Arm and There Was Still No Motion of the Ankle Joint. We Attempted to Look at the Screws to Take out the Medial Screws and There Was Such Severe Bony Overgrowth over All the Screws That Trying to Get Interface of the Screwdriver into the Bones Was Unsuccessful and We Broke 2 drivers. The screws would not advance. After considering the options I decided intraoperatively not to remove the screws 1 that the ankle joint did not move. 2 I would have to remove an excessive amount of bone by using osteotomes and birds which would destabilize the ankle fusion. And would also cause for significant bone loss. With this in mind I elected to keep the screwsin. They would not advance and they would not come out. Tension now was placed to the talonavicular joint where there was significant dorsal arthritis and significant hypermobility. At this point I elected to fuse the talonavicular joint due to the excessive mobility was for ankle joint motion. Because any early arthritis to the joint we removed all thecartilaginous surfaces of the talonavicular joint using curettes osteotomes and rotary bur. Once the cartilage was removed we are able to fenestrate the bone after irrigation. We now took a dorsal part of the talus down to keep it flat and we used Conmed krista and krista to complex read. We loaded the talonavicular joint and there was no motion and it was stable. We now are able to take a 3 5 drill bit and fenestrate some holes near the ankle joint. We are ableto start the procedure by harvesting 20 cc of bone marrow aspirate and then we had cc of Biologics Jorge bone graft. And we submerged this into the B MAC. Prior to fusing the talonavicular joint we placed the graft and the B MAC and the interface of the joint. On the medial side where we try to attempt to take the screws out there was a little void and we filled this and and then we made the tunnel holes from anterior to posterior medial to lateral and injected the putty and these tunnel holesto fill and to allow continue arthrodesis of the ankle joint. We examined the subtalar joint subtalar joint had adequate motion and we did not want to disturb the subtalar joint. The foot was held at 90 degrees. There was no motion of the ankle joint. No motion of the talonavicular joint. And for security we placed 2 krista 1 measuring 25 and 1 measuring 20 to lock up the ankle joint. We let the tourniquet down. Control bleeding with the Bovie. Irrigated with saline solutio n. The superficial peroneal nerve interface which was stable we then took a 4 x 8 and collagen dermatological graft and placed this over the nerve over the skin so we would not have significant adhesions or scar tissue postoperatively. This was controlled with a 2-0 Vicryl suture. We stressed the ankle there was no motion of the TN joint or ankle joint it was at 90 degrees the toes are pink and healthy bleeding was well-controlled a sterile dressing was applied and a posteriorsplint applied. Patient tolerated procedure anesthesia well. A 90 degrees splint was applied. Patient be discharged to PACU then discharged home. Patient will be casted for at least 2 months. Will see if we get the patient a bone stimulator. I do not think the patient will ever be purposely pain-free and hoping this helps and we may even have to consider pain management afterwards. Should the patient have any problems she will call we will discharge her home to [place] he will be discharged withwritten and verbal instructions Complications: None; patient tolerated the procedure well. Disposition: PACU - hemodynamically stable. Condition: stable Task Performed by DEICER REPAIRER PNEUMATIC or Occasional Caregiver: Systems help assist with the case to ensure superior outcome of the procedure Task Performed by RALPH Veterinary Surgery Technician or Physician Medication Specialist: Urbano Garcia and osman Miller/CANDACE, was necessary to assist on this case due to the nature of thecase and difficulty. During the case served as my throughout the case Additional Details: Once again due to the fact that the screws were not advancing from the ankle joint and there was no motion we elected not to destroy the remaining bone destabilize the ankle jointand therefore we did not use the intramedullary nail. We are able to use the talonavicular joint tostabilize the foot and keep it at 90 degrees and reduce the arthritis on the dorsal talonavicular joint and to stabilize the ankle. We decompressed the nerve and hopefully this will help with patientlong-term emotional be perfect the goal to get her into a brace and to be able to tolerate this condition. Attending Attestation: Thierry Braun [facility] Work Phone: [phone] Evaluation note* Type Assessment Date assessment assessment [facility] Work Phone: [phone] NoteHNO ID: [id number] Author: Sharona Hoffman DPM Service: ? Author [...] mother Previous LEFT ANKLE surgery Dr. Jonny Rene DPM [place] arthroscopic surgery ? Later revised by Dr. 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 X-ray reviewed from [facility] RIGHT ANKLE consistent with medial talar dome Osteo Chondral Defect (O.C.D.)Talar Dome MRI consistent with medial talar dome [...] patient. Sharona Hoffman DPM [facility] NoteHNO ID: [id number] Author: Rk Rendon DPM Service: ? 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 Rk Rendon DPM documented in this encounter[facility]-16-2022 NotePROCEDURE: XR ANKLE RT MIN 3 VIEWS COMPARISON: [...] Electronically authenticated by: GAGE LYNCH Date: 2022-01-12 16:36[facility]06-11-2022 Hospital Discharge instructions* Instructions* Chuy Jacobson MD - 10/07/2021 Please also follow-up with Blanka [employer]IC[employer] physician as discussed She may discontinue the Omnicef and Levaquin and start Augmentin You may also contact Dr. Finley concerning abscess [facility] [employer] Phone: consult note* Clinical Note Date No Information [facility] Phone: [phone] summary* Clinical Note Date No Information [facility] Phone: Evaluation note* Diagnosis Leach syndrome, left Osteochondritis dissecans of ankle, left documented in this encounter [employer] Phone: evaluation note* Diagnosis Low back pain, unspecified back pain laterality, unspecified chronicity, unspecified whether sciatica present- Primary [facility] Diagnosis Urinary tract infection without hematuria, site unspecified Retention of urine, unspecified documented in this encounter [employer] Phone: evalhwxufs note* Diagnosis Elevated lactic acid level- Primary Other nonspecific abnormal serum enzyme levels Leukocytosis, unspecified type Abscess Cellulitis and abscess of unspecified site History of miscarriage Personal history of other genital system and obstetric disorders documented in this encounter [facility] [employer] Phone: evalwjiyrc note* Diagnosis 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 Chronic pain of right ankle [facility]* Diagnosis Chronic pain of both ankles- Primary Altered gait Abnormality of gait 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 Disorder of bone and cartilage, unspecified Peroneal tendinitis of right lower extremity Other enthesopathy of ankle and tarsus 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, unspecified laterality documented in this encounter [facility]Evalun[facility]ours foundation [facility]* Diagnosis Right wrist pain Pain in joint, forearm documented in this encounter [employer] Work Phone: evaluation note* Diagnosis Pain Generalized pain documented in this encounter [employer] Work Phone: evaluation note* Diagnosis Onset Date Resolution Status Right hip pain acute Piriformis syndrome of right side noneactive [facility] Work Phone: Evaluation note* Diagnosis Herniated nucleus pulposus, lumbar- Primary Displacement of lumbar intervertebral disc without myelopathy [facility]* Diagnosis Left ankle pain, unspecified chronicity documented in this encounter [facility] [employer] note* Diagnosis Arthrodesis status Left ankle pain, unspecified chronicity Osteoarthritis of left ankle or foot Osteoarthrosis, unspecified whether generalized or localized, ankle and foot documented in this encounter [facility] [employer] note* Diagnosis Right ankle pain, unspecified chronicity documented in this encounter [facility] note* Type Assessment Date No Information [facility] Work Phone: Evaluation note* Diagnosis Secondary osteoarthritis, left ankle and foot documented in this encounter [facility] Work Phone: Evaluation note* Diagnosis Left knee pain, unspecified chronicity [facility]* Diagnosis Left ankle pain, unspecified chronicity documented [facility] this [facility]* Diagnosis Left ankle pain, unspecified chronicity Pain Generalized pain documented in this encounter [facility]* Clinical Note Date No Information [facility] Work Phone: History of Present illness Narrative* Encounter Date Complaint History Of Prese nt Illness No Information [facility] Work Phone: Instructions* Date Instruction Additional Infor mation No Information [facility] Work Phone: Progress note* Clinical Note Date No Information [facility] Work Phone: Reason for referral (narrative)* Consultation (Routine) - Pending Review Specialty Diagnoses / Procedures Referred By Contac t Referred To Contact Neurosurgery Diagnoses Low back pain, unspecified back pain laterality, unspecified chronicity, unspecified whether sciatica present Louise Lemos MD [address] [place] [address] Joey Gillespie MD [address] [place] [address] Referral ID Status Reason Start Date Expiration Date V isits Requested Visits Authorized [id number] Pending Review 06/20/2021 06/20/2022 1 1 [facility] Consultation (Routine) - Pending Review Specialty Diagnoses / Procedures Referred By Contac t Referred To Contact Neurosurgery Diagnoses Herniated nucleus pulposus, lumbar Louise Lemos MD [address] [address] Dean Oro MD [address] [place] [address] Referral ID Status Reason Start Date Expiration Date V isits Requested Visits Authorized [id number] Pending Review 08/01/2023 07/31/2024 1 1 [facility] Reason For Referral No Information [facility] Work Phone: Reason for visit Narrative* Diagnostic Procedure Only (Routine) - Closed Specialty Diagnoses / Procedures Referred By Contac t Referred To Contact XR IMAGING Diagnoses Right ankle pain, unspecified chronicity Procedures XR ANKLE GENERAL 3V AP/LAT/OBL RIGHT RADEX ANKLE COMPLETE MINIMUM 3 VIEWS Sharona Hoffman, DPM [address] [place] [address] [place] [address] Referral ID Status Reason Start Date Expiration Date V isits Requested Visits Authorized [id number] Closed Auto-Generate d Referral 03/07/2022 04/06/2023 1 1 [facility] for visit Narrative* Auth/Cert Specialty Diagnoses / Procedures Referred By Asael t Referred To Contact Diagnoses 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] Procedures IA ARTHRODESIS ANKLE OPEN IA ARTHRODESIS SUBTALAR IA REMOVAL IMPLANT DEEP IA APPLICATION MULTIPLANE EXTERNAL FIXATION SYSTEM IA NERVE PEDICLE TRANSFER FIRST STAGE Arthrodesis Ankle Arthrodesis Subtalar Joint Lower Extremity Hardware Removal Application External Fixation Ankle TRANSFER, NERVE PEDICLE, STAGE 1 Thierry Braun DPM [address] [place] [address] Phone: tel: fax: [facility] [place] [address] [place] [address] fax: Referral ID Status Reason Start Date Expiration Date Visits Re quested Visits Authorized [id number] 1 1 [facility] Work Phone: [facility] for visit Narrative* Auth/Cert Specialty Diagnoses / Procedures Referred By Asael t Referred To Contact Diagnoses Secondary osteoarthritis, left ankle and foot Secondary osteoarthritis, 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] Procedures IA ARTHRODESIS ANKLE OPEN IA ARTHRODESIS SUBTALAR IA REMOVAL IMPLANT DEEP IA APPLICATION MULTIPLANE EXTERNAL FIXATION SYSTEM Arthrodesis Ankle Arthrodesis Subtalar Joint Lower Extremity Hardware Removal Application External Fixation Ankle Thierry Braun DPM [address] [place] [address] Phone: tel: fax: [facility] [place] [address] [place] [address] fax: Referral ID Status Reason Start Date Expiration Date Visits Re quested Visits Authorized [id number] [facility] Work Phone: Reason for Referral Status Reason Specialty Diagnoses / Procedures Referred By Contact Referred To Contact Pending Review Radiology Diagnoses Sprain of tibiofibular ligament of left ankle, sequela Procedures MRI ANKLE LEFT WO CONTRAST Louise Lemos MD [address] [place] [address] Specialty Diagnoses / Procedures Referred By Contac t Referred To Contact Radiology Diagnoses Urinary tract infection without hematuria, site unspecified Retention of urine, unspecified Procedures US URINARY BLADDER LIMITED Dillon Wooten MD [address] [place] [address] Referral ID Status Reason Start Date Expiration Date Visits Re quested Visits Authorized [id number] Closed 07/17/2021 07/17/2022 1 1 Specialty Diagnoses / Procedures Referred By Contac t Referred To Contact Radiology Diagnoses Arthrodesis status Left ankle pain, unspecified chronicity Osteoarthritis of left ankle or foot Procedures CT ANKLE LEFT WO CONTRAST Fiona Gagnon PA [address] [facility] [address] [place] [address] Referral ID Status Reason Start Date Expiration Date Visits Re quested Visits Authorized [id number] Closed 10/11/2023 12/10/2023 1 1 Assessments Diagnosis Sprain of tibiofibular ligament of left ankle, sequela Diagnosis Acute left ankle pain- Primary Diagnosis Trapezius strain, left, initial encounter- Primary Advance Directives No Advanced Directives Records FoundDocuments on File Type Date Recorded Patient Rehabilitation Director Expl anation Advance Directives and Living Will Power of Yard Demurrage Clerk Documents on File Type Date Recorded Patient Rehabilitation Director Expl anation ACP-Advance Directive ACP-Power of Yard Demurrage Clerk Documents on File Type Date Recorded Patient Rehabilitation Director Expl anation Advance Directives and Living Will Power of Yard Demurrage Clerk Documents on File Type Date Recorded Patient Rehabilitation Director Expl anation ACP-Advance Directive ACP-Power of Yard Demurrage Clerk Advance Directive Response Recorded Date/ Time Advance Directives No July 21, 2 024 3:55pm Directive Yes / No Effective Date File Name No Information Documents on File Type Date Recorded Patient Rehabilitation Director Expl anation Healthcare Power of Atty 03/18/2024 Health Care Power of Yard Demurrage Clerk Healthcare Power of Atty 03/18/2024 Durable Power of Att orney Healthcare Power of Atty 03/18/2024 Guardianship Arsenio redmond Summary Purpose Family History No Family History Records Found Family Member Type Diagnosis Age At Onset No Information Hospital Course Note Send Summary: Discharge Summ ralls Providers: Provider RoleProvider Name ReferringThierry Braun Amolak PrimaryHoy, Douglas M AttendingThierry Braun Note Recipients: Louise Lemos MD - [id number] [] Thierry Braun DPM Discharge: Summary: Admission [...] at Discharge: .Home Vital Signs: T PRBPSpO2 Value36.06496130/7294% Date/Time01/29 5:291/3 5:2909/3 5:2913 5:291/3 5:29 Range(36.1C - 36.6C ) (72 - 94 ) (14 - 14 ) (113 - 131 )/ (72 - 78 ) (94% - 99% ) Date: Weight/Scale Type:Height: 02-Oc (more content not included)... Note Post Operative [...] posterior tibial tendon Surgeon: Thierry Braun Resident/Fellow/Other Medication Specialist: Nanci Cleary, PGY5 Anesthesia: General with regional [...] posterior tibial tendon Surgeon: Thierry Braun Resident/Fellow/Other Medication Specialist: Nanci Cleary, PGY5 Anesthesia: General with regional [...] through Care Everywhere. * Ankle Sprain: Teen ([place]) documented in this encounter* Instructions* Faye Go MD - 06/13/2020 Tylenol and/or Motrin as needed for any pain. Take Flexeril as needed for muscle spasms. Try [id number] ThermaCare patches or similar product as desired for comfort. Up with your primary care physician within 1 week if symptoms not resolved. Seek medical attention prior to this for any acute concerns. * Attachments The following attachments cannot be sent through Care Everywhere. 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 Pain in left ankle and joints of left foot Procedures HC CT SCAN OF LEG CONTRAST Thierry Braun DPM [address] [facility] [address] [place] [address] [facility] [address] [place] [address] Reason Comments Ankle Pain left ankle Reason [...] URINARY BLADDER LIMITED Dillon Wooten MD [address] [place] [address] Referral ID Status Reason Start Date Expiration Date Visits Re quested Visits Authorized Closed 07/17/2021 07/17/2022 1 1 Reason Comments Abscess Tailbone, Onset 6 da ys ago, worse now Reason Comments Pain Specialty Diagnoses / Procedures Referred By Contact Referred To Contact Podiatry / ORTHOPAEDIC SURGERY Diagnoses Osteochondral defect, Foot pain *Hand carry XR and MRI Procedures TANIA ACUTE Louise Lemos MD [address] [place] [address] Rk Rendon, DPM [address] [place] [address] Referral ID Status Reason Start Date Expiration Date Visits Re quested Visits Authorized [id number] Closed 02/07/2022 04/28/2022 1 1 Reason Comments New Pain Specialty Diagnoses / Procedures Referred By Contac t Referred To Contact Podiatry / ORTHOPAEDIC SURGERY Diagnoses Encounter for general adult medical examination without abnormal findings RIGHT ANKLE (CONSULT FOR SURGERY) Procedures OFFICE/OUTPATIENT ESTABLISHED MOD MDM 30-39 MIN TANIA ACUTE Sharona Hoffman DPM [address] [place] [address] Sharona Hoffman DPM [address] [place] [address] Referral ID Status Reason Start Date Expiration Date Visits Re quested Visits Authorized [id number] Closed 03/09/2022 04/28/2022 1 1 Specialty Diagnoses / Procedures Referred By Contac t Referred To Contact Radiology Diagnoses Arthrodesis status Left ankle pain, unspecified chronicity Osteoarthritis of left ankle or foot Procedures CT ANKLE LEFT WO CONTRAST Fiona Gagnon, PA [address] [facility] [address] [place] [address] Referral ID Status Reason Start Date Expiration Date Visits Re quested Visits Authorized [id number] Closed 10/11/2023 12/10/2023 1 1 INFORMATION SOURCE (unrecogn ized section and content) DATE CREATED AUTHOR 02/06/2020 [facility] DATE CREATED AUTHOR AUTHOR'S ORGANIZ ATION 06/14/2020 [facility] DATE CREATED AUTHOR AUTHOR'S ORGANIZ ATION 10/15/2020 [facility] DATE CREATED AUTHOR AUTHOR'S ORGANIZ ATION 03/10/2022 [facility] DATE CREATED AUTHOR AUTHOR'S ORGANIZ ATION 07/19/2022 [facility] DATE CREATED AUTHOR AUTHOR'S ORGANIZ ATION 2023 [facility] DATE CREATED AUTHOR AUTHOR'S ORGANIZ ATION 04/10/2024 [facility] DATE CREATED AUTHOR AUTHOR'S ORGANIZ ATION 04/23/2024 [facility] DATE CREATED AUTHOR AUTHOR'S ORGANIZ ATION 08/25/2024 [facility] DATE CREATED AUTHOR AUTHOR'S ORGANIZ ATION 09/25/2024 [facility] DATE CREATED AUTHOR AUTHOR'S ORGANIZ ATION 01/06/2025 [facility] DATE CREATED AUTHOR AUTHOR'S ORGANIZ ATION 01/09/2025 [facility] Ordered Prescriptions (unrec ognized section and content) [...] Care Teams (unrecognized sec tion and content) Eye Glass Frame Polisher Relationship Specialty Start Date End Date Louise Lemos MD [address] [place] [address] PCP - General Family Medicine 06/16/21 Eye Glass Frame Polisher Relationship Specialty Start Date End Date Louise Lemos MD [address] [place] [address] PCP - General Family Medicine 03/18/20 Eye Glass Frame Polisher Relationship Specialty Start Date End Date Louise Lemos MD [address] [phone] PCP - General Family Medicine 03/18/20 Eye Glass Frame Polisher Relationship Specialty Start Date End Date Louise Lemos MD [address] [phone] PCP - General Family Medicine 03/18/20 Eye Glass Frame Polisher Relationship Specialty Start Date End Date Louise Lemos MD [address] [place] [address] PCP - General Family Medicine 03/18/20 Eye Glass Frame Polisher Relationship Specialty Start Date End Date Louise Lemos MD [address] [place] [address] PCP - General Family Medicine 03/18/20 Eye Glass Frame Polisher Relationship Specialty Start Date End Date Louise Lemos MD [address] [place] [address] PCP - General 06/27/09 Eye Glass Frame Polisher Relationship Specialty Start Date End Date Louise Lemos MD [address] [place] [address] PCP - General 06/27/09 Eye Glass Frame Polisher Relationship Specialty Start Date End Date Louise Lemos MD [address] [place] [address] PCP - General Family Medicine 03/18/20 Eye Glass Frame Polisher Relationship Specialty Start Date End Date Louise Lemos MD [address] [phone] PCP - General Family Medicine 03/18/20 Eye Glass Frame Polisher Relationship Specialty Start Date End Date Louise Lemos MD [address] [place] [address] PCP - General Family Medicine 03/18/20 Team [...] July 26, 2023 End: July 26, 2023 Eye Glass Frame Polisher Relationship Specialty Start Date End Date Louise Lemos MD [address] [place] [address] PCP - General Family Medicine 06/16/21 Eye Glass Frame Polisher Relationship Specialty Start Date End Date Louise Lemos MD [address] [place] [address] PCP - General Family Medicine 03/18/20 Eye Glass Frame Polisher Relationship Specialty Start Date End Date Louise Lemos MD [address] [place] [address] PCP - General Family Medicine 03/18/20 Eye Glass Frame Polisher Relationship Specialty Start Date End Date Louise Lemos MD PCP - General 06/27/09 Name Effective Dates (start - stop) Status Members No Information Eye Glass Frame Polisher Relationship Specialty Start Date End Date Louise Lemos MD [address] [place], [place] [phone] PCP - General Family Medicine 03/18/20 Eye Glass Frame Polisher Relationship Specialty Start Date End Date Louise Lemos MD [address] [place] [address] PCP - General Family Medicine 03/18/20 Eye Glass Frame Polisher Relationship Specialty Start Date End Date Louise Lemos MD [address] [place] [address] PCP - General 01/28/20 Eye Glass Frame Polisher Relationship Specialty Start Date End Date Louise Lemos MD [address] [place] [address] PCP - General 01/28/20 Eye Glass Frame Polisher Relationship Specialty Start Date End Date Louise Lemos MD [address] [place] [address] PCP - General Family Medicine 03/18/20 Eye Glass Frame Polisher Relationship Specialty Start Date End Date Louise Lemos MD [facility] [place] [address] PCP - General Family Medicine 03/18/20 Eye Glass Frame Polisher Relationship Specialty Start Date End Date Louise Lemos MD [address] [place] [address] PCP - General Family Medicine 03/18/20 Scheduled [...] - Provider: Lin Arevalo RN) lidocaine-EPINEPHrine 1 %-1:842152 injection 20 mL (COMPLETED) 20 mL, IntraDERmal, [...] Starting on 10/07/21 at 1600 1600 (Due) Scheduled Medication Order 03/16/2024 03/17/2024 03/18/2024 acetaminophen (Tylenol) tablet 975 mg (COMPLETED) 975 mg, oral, Once, On Sat03/18/24 at 1230, For 1 dose, Preprocedure, If ordered PRN for pain, nurse is permitted to administer this medication for higher pain scores based on patient preference? Yes 1231 (Given - Provid er: Betzaida Haque RN) ceFAZolin (Ancef) 2 g in dextrose (iso) IV 50 mL 2 g, intravenous, at 100 mL/hr, Administer over 30 Minutes, Once, On Sat03/18/24 at 1230, For 1 dose, Preprocedure, Duplex bag - activate before hanging., Dosing of this medication varies based on severity of illness. Does this patient have sepsis or concern for sepsis (probable or documented infection plus systemic manifestations of infection)? No, Suspected Indication (Select all that apply): Surgical Prophylaxis, Indications: Surgical Prophylaxis 1230 (Due) gabapentin (Neurontin) capsule 600 mg (COMPLETED) 600 mg, oral, Once, On Sat03/18/24 at 1230, For 1 dose, Preprocedure, Capsules may be opened and sprinkled on food (eg, applesauce, orange juice, pudding 1232 (Given - Provid er: Betzaida Haque RN) povidone-iodine 5 % kit kit Topical, Once, On Sat03/18/24 at 1230, For 1 dose, Preprocedure, Nasal swab 1230 (Due) Scheduled Medication Order 04/05/2024 04/06/2024 04/07/2024 acetaminophen (Tylenol) tablet 975 mg (COMPLETED) 975 mg, oral, Once, On Sat04/07/24 at 1145, For 1 dose, Preprocedure, If ordered PRN for pain, nurse is permitted to administer this medication for higher pain scores based on patient preference? Yes 1202 (Given - Provid er: Mahogany Julio, CELIA) ceFAZolin (Ancef) 2 g in dextrose (iso) IV 50 mL (COMPLETED) 2 g, intravenous, at 100 mL/hr, Administer over 30 Minutes, Once, On Sat04/07/24 at 1145, For 1 dose, Preprocedure, Duplex bag - activate before hanging., Dosing of this medication varies based on severity of illness. Does this patient have sepsis or concern for sepsis (probable or documented infection plus systemic manifestations of infection)? No, Suspected Indication (Select all that apply): Surgical Prophylaxis, Indications: Surgical Prophylaxis 1309 (Given - Provid er: Juancarlos Valentino, [employer]NER-[employer]MENT[employer] METAL ERECTOR) gabapentin (Neurontin) capsule 300 mg (COMPLETED) 300 mg, oral, Once, On Sat04/07/24 at 1145, For 1 dose, Preprocedure, Capsules may be opened and sprinkled on food (eg, applesauce, orange juice, pudding 1201 (Given - Provid er: Mahogany Julio RN) povidone-iodine 5 % kit kit (COMPLETED) Topical, Once, On Sat04/07/24 at 1145, For 1 dose, Preprocedure, Nasal swab 1238 (Given - Provid er: Nani Hou RN) PRN Medication Order 04/05/2024 04/06/2024 04/07/2024 acetaminophen (Tylenol) tablet 650 mg 650 mg, oral, Every 4 hours PRN, pain mild (1-3), first line, Starting on Sat04/07/24 at 1606, Recovery (only), When able to take oral medications., If ordered PRN for pain, nurse is permitted to administer this medication for higher pain scores based on patient preference? Yes BUPivacaine-EPINEPHrine (Marcaine w/EPI) 0.25 %-1:200,000 injection (CANCELED) As needed, Starting on Sat04/07/24 at 1552, Intraprocedure 1552 (Given - Provid er: Thierry Braun DPM) heparin (porcine) injection (CANCELED) As needed, Starting on Sat04/07/24 at 1343, Intraprocedure 1343 (Given - Provid er: Thierry Braun DPM - Comment: flushed through bone marrow aspiration kit) HYDROmorphone (Dilaudid) injection 0.5 mg 0.5 mg, intravenous, Every 5 min PRN, pain breakthrough, Starting on Sat04/07/24 at 1606, Recovery (only), Max total of 4 mg regardless of dose. ondansetron (Zofran) injection 4 mg 4 mg, intravenous, Once as needed, nausea/vomiting, first line, Starting on Sat04/07/24 at 1606, For 1 dose, Recovery (only), When administering via IV Push, administer over 3-5 minutes. oxyCODONE (Roxicodone) immediate release tablet 10 mg 10 mg, oral, Every 4 hours PRN, pain severe (7-10), second line, Starting on Sat04/07/24 at 1606, Recovery (only), When able to take oral medications., If ordered PRN for pain, nurse is permitted to administer this medication for higher pain scores based on patient preference? Yes 1658 (Given - Provid er: Raysa Dobbs RN) oxyCODONE (Roxicodone) immediate release tablet 5 mg 5 mg, oral, Every 4 hours PRN, pain moderate (4-6), second line, Starting on Sat04/07/24 at 1606, Recovery (only), When able to take oral medications., If ordered PRN for pain, nurse is permitted to administer this medication for higher pain scores based on patient preference? Yes oxygen (O2) therapy inhalation, Continuous PRN - O2/gases, other, Starting on Sat04/07/24 at 1606, Recovery (only), Device: Nasal Cannula, Rate in liters per minute: Other, Custom Value: 1-6 LPM, Keep O2 Sat Above: 92% promethazine (Phenergan) 6.25 mg in sodium chloride 0.9% 50 mL IV 6.25 mg, intravenous, Administer over 15 Minutes, Once as needed, Nausea/vomiting, second line, Starting on Sat04/07/24 at 1606, For 1 dose, Recovery (only) Source Comments (unrecognize d section and content) In the event this informatio n is protected by the Federal Confidentiality of Alcohol and Drug Abuse Patient Records regulations: The Federal rules restrict any use of the information to criminally investigate or prosecute any alcohol or drug abuse patient.[facility] the event this information is protected by the Federal Confidentiality of Alcohol and Drug Abuse Patient Records regulations: The Federal rules restrict any use of the information to criminally investigate or prosecute any alcohol or drug abuse patient.[facility] Hospital[facility] the event this information is protected by the Federal Confidentiality of Alcohol and Drug Abuse Patient Records regulations: The Federal rules restrict any use of the information to criminally investigate or prosecute any alcohol or drug abuse patient.[facility] Goals (unrecognized section and content) Health Concern Goal Type Priority Status No Information FOR RECORDS PERTAINING TO PATIENTS WHO ARE [...] BE BASED ON THE PRIMARY CLINICAL RECORDS. [facility]. provides no warranty or guarantee of the accuracy or completeness of information in this document.
--- NOTE | 2025-01-15 06:45 | MR_ITS ---
The [place] [id number] Patient Name: MARILEE MACKENZIE MRN: [id number] date: 2000 Sex: F Assigned Patient Location: MRI Current Patient Location: MRI Accession/Order Number: [id number] Exam Date: 01/15/2025 07:00 Report Date: 01/15/2025 17:22 At the request of: LOUISE LEMOS MD Procedure: MR thoracic spine wo con MRI of the thoracic spine performed without contrast INDICATION: Thoracic spine pain, chronic thoracic pain history degenerative disc disease COMPARISON: None FINDINGS: The thoracic vertebral heights, alignment and bone marrow signal is unremarkable. Multilevel Schmorl's node deformities notably from T7 through L1. Mild intervertebral space narrowing T6-T7, T8-T9 and T10-T12. Mild facet arthropathy notably T7-L1. The thoracic cord demonstrates normal signal and morphology. T6-T7: Minimal annulus bulge. Facet arthropathy. Canal neural foramina patent. T8-9: Minimal broad-based bulge and facet arthropathy. Minimal ventral effacement of thecal sac. Canal and foramina patent. T11-T12: Circumferential disc bulge with facet arthropathy. Aben-ht-idvkdlyj central stenosis. Foramina patent. Otherwise no significant canal or neural foraminal narrowing identified throughout the thoracic spine MR/MR thoracic spine wo con IMPRESSION: Overall mild multilevel changes involving mid to lower thoracic spine due to combination of Schmorl's node deformities and posterior element degeneration. Disc disease and central canal narrowing greatest at T11-T12 Impression dictated by: Del Salinas M.D. 01/15/2025 5:22 PM Dictation Location: [place] [address] Electronically authenticated by: [id number] Y Date: 01/15/2025 17:22
--- NOTE | 2025-01-15 06:45 | MR_ITS ---
The [address] [address] Patient Name: MARILEE MACKENZIE MRN: [id number] date: 2000 Sex: F Assigned Patient Location: MRI Current Patient Location: MRI Accession/Order Number: [id number] Exam Date: 01/15/2025 07:00 Report Date: 01/15/2025 17:46 At the request of: LOUISE LEMOS MD Procedure: MR lumbar spine wo con MRI lumbar spine performed without contrast COMPARISON: 07/28/2024 INDICATION: Bulging lumbar disc, lumbar chronic pain with bilateral lower extremity numbness FINDINGS: Straightening and reversal normal lumbar lordosis. Mild intervertebral space narrowing L3-S1. Conus medullaris terminates normally at L1-L2. T12-L1: Schmorl's node deformities. Facet arthropathy. No central canal or neural from narrowing identified. L1-L2: Schmorl's node deformities. Facet arthropathy. Minimal central canal stenosis and foraminal narrowing, caused by the facet arthropathy. L2-3: Schmorl's node deformities and minimal annulus bulge. Facet arthropathy. Mild canal and mild foraminal narrowing. L3-4: Circumferential bulge with superimposed right foraminal zone to subarticular zone protrusion. Moderate right moderate left neural foraminal narrowing. Nezn-hf-wkxcmkha central canal stenosis. Moderate to severe effacement right, correlate with right L4 radiculopathy. L4-5: Circumferential disc bulge with central protrusion with associated T2 hyperintense signal suggestive focal fissuring. Moderate bilateral neural foraminal narrowing. Gnhd-rx-kprbsgry facet arthropathy. Mild canal narrowing. L5-S1: Circumferential disc bulge with central effusion with associated T2 hyperintense signal at T2 hyperintense signal appears to be eccentric may contact the traversing left S1 nerve root.. Otherwise fruu-ta-cxqebiyn facet arthropathy. Pqig-ql-yvtwmxwe neural from narrowing. Canal is patent. MR/MR lumbar spine wo con IMPRESSION: Right subarticular to foraminal zone protrusion L3-4, this appears to exert mass effect effect on the right L4 nerve root. Correlate with possible right L4 radiculopathy. Otherwise no high-grade central canal or neural foraminal narrowing identified. Additional level by level details as detailed above. Impression dictated by: Del Salinas M.D. 01/15/2025 5:46 PM Dictation Location: [place] [address] Electronically authenticated by: [id number] Y Date: 01/15/2025 17:46
== END 2025-01-15 06:41 | disposition home or self-care (01) ==
LOC: MRI 06:40
PROVIDERS: PCP Family Medicine; Visit Provider Family Medicine
DX: M51.26 Other intervertebral disc displacement, lumbar region (principal); M51.34 Other intervertebral disc degeneration, thoracic region
CPT/HCPCS: 72146; 72148

== ENCOUNTER 2025-01-26 06:48 | Outpatient (OUT) | payer OTHER, SELFPAY ==
--- OUTSIDE RECORDS SUMMARY | 2025-01-07 10:22 | XMS_ITS ---
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 ble by radiology and will not be interpreted by Radiologists. SURGICAL PATHOLOGY STUDY Observed: 04/07 3:44 PM Status: F Source: 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 Laboratory comment By the signature on this report, the individual or group listed as making the Final Interpretation/Diagnosis certifies that they have reviewed this case. 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 The specimen is serially sectioned and entirely submitted in 3 cassettes. SMS/VISHAL CHORIOGONADOTROPIN.BETA SUBUNIT Collect ed: 04/07/2024 11:18 AM Status: F Source: [facility] Order Comment: Total HCG leslie surement is performed using the Andre Beacon Access Immunoassay which detects intact HCG and free beta HCG subunit. This test is not indicated for use as a tumor marker. HCG testing is performed using a different test methodology at [facility] than other [facility]. Direct result comparison should only be made within the same method. TYPE CODE TESTS RESULT OUT OF RANGE REFERENCE UNITS LAB 73565-5(LOINC ) Choriogona dotropin.b eta subunit <2 <5 mIU/mL Performed By: #### 39006-4 # ### ALFREDO Wagner ([id number]) [facility] ([facility]) [address] [place] [address] UA W/REFLEX CULTURE Collected: 04/06/2024 4:[address] atus: F Source: [facility] TYPE CODE TESTS RESULT OUT OF RANGE REFERENCE UNITS LAB UCO(LOINC) Color Yellow YEL LAB UTU(LOINC) Clarity, Urine Clear CLEAR LAB UGL(LOINC) Glucose,Semi-q nt,Ur TRACE Abnormal NEG mg/dL LAB UBI(LOINC) Bilirubin, SemiQt,Ur NEGATIVE NEG LAB UKE(LOINC) Ketones, Urine NEGATIVE NEG mg/dL LAB USG(LOINC) Spec. [place],Ur <1.005 Low 1.010-1.020 LAB UHB(LOINC) Blood, Urine NEGATIVE NEG LAB UPH(LOINC) PH,Ur 6.0 5.0-9.0 LAB UPR(LOINC) Protein, Semi-qnt,Ur NEGATIVE NEG mg/dL LAB UUR(LOINC) Urobilinogen,U r Normal 0.0-1.0 EU/dL LAB UNI(LOINC) Nitrite,Ur NEGATIVE NEG LAB ULE(LOINC) Leukocyte Esterase SMALL Abnormal NEG Performed By: #### HCG, [facility] AO, UAX #### [facility] [address] [place] [address] [place] [address] Lineman A Class: Veto Barraza MD URINALYSIS,MICRO Collected: 4 4:47 PM Status: F Source: [facility] TYPE CODE TESTS RESULT OUT OF RANGE REFERENCE UNITS LAB UWBC([facility]) Urine WBC's 5 TO 10 0-5 /HPF LAB URBC(INC) Urine RBC's 0 TO 2 0-2 /HPF LAB EPITH(LOINC) Epithelial cells 2 TO 5 0-25 /HPF Performed By: #### HCG, [facility] AO, UAX #### [facility] [address] [place] [address] [place] [address] Lineman A Class: Veto Barraza MD HCG SCREEN, BLOOD Collected: 4 4:47 PM Status: F Source: [facility] TYPE CODE TESTS RESULT OUT OF RANGE REFERENCE UNITS LAB HCG(LOINC) HCG Screen, Blood NEGATIVE NEG Result Comment: Specimens wi th hCG levels near the threshold of the test (25 mIU/mL) may give a negative or indeterminate result. In such cases, another test should be performed with a new specimen in 48-72 hours. If early is suspected clinically in this setting, correlation with quantitative serum b-hCG level is suggested. [facility] the use of plasma for this test. This has not been cleared or approved by the U.S. Food and Drug Administration. The FDA has determined that such clearance is not necessary. Performed By: #### HCG, [facility] AO, UAX #### [address] [place] [address] Lineman A Class: Veto Barraza MD CULT,URINE Observed: 04/06/2024 4:47 PM Status: F Source: [facility] Specimen Description .URINE Culture NO SIGNIFICANT GROWTH Report Status FINAL 04/07/2024 Performed By: #### UR #### [facility] [address] [place], [place] [address] Lineman A Class: Bala Borges MD [address] [place] [address] Lineman A Class: Veto Barraza MD HCG, QUANT Collected: 4 2:27 PM Status: F Source: [facility] TYPE CODE TESTS RESULT OUT OF RANGE REFERENCE UNITS LAB BHCG(LOINC) HCG, Quant 1.8 0-7 mIU/mL Result Comment: Non-preg premeno <=5 Postmeno <=8 Male <=3 If HCG results do not concur with clinical observations, additional testing to confirm results is recommended. Performed By: #### BHCG #### [address] [place] [address] Lineman A Class: Veto Barraza MD HCG, QUANT Collected: 4 12:51 PM Status: F Source: [facility] TYPE CODE TESTS RESULT OUT OF RANGE REFERENCE UNITS LAB BHCG(LOINC) HCG, Quant 2.2 0-7 mIU/mL Result Comment: Non-preg premeno <=5 Postmeno <=8 Male <=3 If HCG results do not concur with clinical observations, additional testing to confirm results is recommended. Performed By: #### BHCG #### [facility] [address] [place] [address] [place] [address] Lineman A Class: Veto Barraza MD HCG, QUANT Collected: 4 2:46 PM Status: F Source: [facility] TYPE CODE TESTS RESULT OUT OF RANGE REFERENCE UNITS LAB BHCG(LOINC) HCG, Quant 2.8 0-7 mIU/mL Result Comment: Non-preg premeno <=5 Postmeno <=8 Male <=3 If HCG results do not concur with clinical observations, additional testing to confirm results is recommended. Performed By: #### BHCG #### [facility] [address] [place], [place] [address] Lineman A Class: Veto Barraza MD CHORIOGONADOTROPIN.BETA SUBUNIT Collect ed: 03/18/2024 12:59 PM Status: F Source: [facility] Order Comment: Total HCG leslie surement is performed using the Andre Rashida Access Immunoassay which detects intact HCG and free beta HCG subunit. This test is not indicated for use as a tumor marker. HCG testing is performed using a different test methodology at [facility] than other [facility]. Direct result comparison should only be made within the same method. TYPE CODE TESTS RESULT OUT OF RANGE REFERENCE UNITS LAB 96707-9(LOINC ) Choriogona dotropin.b eta subunit 5 High <5 mIU/mL Result Comment: Low-level po sitive HCG results can be seen in early , in terir- or post-menopausal females due to normal pituitary HCG production, or with analytic interference. Repeat testing in 48-72 hours can aid in assessing for as results should double in this time period. FSH measurement is recommended in terri- or post-menopausal females as concurrent elevation of FSH can support pituitary production as the source of the HCG elevation. Performed By: #### 01196-5 # ### ALFREDO Wagner ([id number]) [facility] ([facility]) [address] [place] [address] CHORIOGONADOTROPIN (PREGNANC Y TEST) Collected: 03/18/2024 12:17 PM Status: C Source: [facility] TYPE CODE TESTS RESULT OUT OF RANGE REFERENCE UNITS LAB 67792-8([place]) Choriogonadotropin ( test) POSITIVE Abnormal NEGATIVE Result Comment: Corrected re sult: Previously reported as NEGATIVE (reference range: NEGATIVE) on 03/18/2024 at 1232 EST. Performed By: #### 89001-5 # ### ALFREDO Wagner ([id number]) [facility] ([facility]) [address] [place] [address] STAPHYLOCOCCUS AUREUS.METHICILLIN RESISTANT ISOLATE Observed: 03/18/2024 12:17 PM Status: F Source: [facility] Test: Staphylococcus aureus/ MRSA colonization, Culture Specimen Source: Nares/Axilla/Groin Specimen Type: Swab Specimen Date: 03/18/2024 1217 Result Date: 03/20/2024 0736 Result Status: Final result Abnormal: No Resulting Lab: [facility] [address] [place] [address] CULTURE No Staphylococcus aureus isolated Performed By: #### 91453-6 # ### MICHOACANO Escalona ([id number]) [facility] ([facility]) [address] [place] [address] ALLERGIES DATE TYPE / CODE NAME / CODE REACTION SEVERITY SOURCE 06/27/2015 DRUG INGREDI/62264 1003(SNOMED CT) TOPIRAMATE Swelling [facility] 03/11/2013 DRUG/94430002 3(SNOMED CT) NEOMYCIN-POLYMYXIN -HC Other [facility] SYSTEMIC/4201 02100(SNOMED CT) ALLERGIES NOT ON FILE [facility] ENV/175696683 (SNOMED CT) smoke unknown UNK [facility] ENV/289749170 (SNOMED CT) Grass unknown UNK [facility] DRUG/25640325 3(SNOMED CT) Topamax hives Moderate (Severity Modifier) (Qualifier Value) [facility] SYSTEMIC/4201 86486(SNOMED CT) NO KNOWN ALLERGIES [facility] ENCOUNTERS ADMIT/DISCHARGE ACCOUNT NUMBER ADMITTING ENCOUNTER CLASS LOCATION SOURCE 01/07/2025/01/08/20 [id number] Ambulatory Building:NO W [facility] 01/04/2025 [id number] Ambulatory Buildin 297s9d-1ojg -3w01-1943- ym1qw6x0e54 d [facility] 12/02/2024 [id number] Ambulatory Buildin 200n2z-2nlc -6r59-9601- qy0pb4x2h22 d [facility] 11/27/2024 [id number] Ambulatory Buildin 574d4e-1ool -6d35-0836- af7az6c9t93 d [facility] 11/24/2024 [id number] Ambulatory Building: 0c733m-34d3 -13y0-xxk2- [id number] a [facility] 11/20/2024 [id number] Ambulatory Building: 9i608i-27f2 -18s4-qgs7- [id number] a [facility] 11/19/2024 [id number] Ambulatory Buildin 771s2l-2ldh -7q72-7511- qt1eu0b3j26 d [facility] 11/16/2024 [id number] Ambulatory Building: 3z507h-36g7 -09k2-ygt2- [id number] a [facility] 10/19/2024 [id number] Ambulatory Buildin 082z4o-4wmi -9z27-5257- jv8ni6g0m84 d [facility] 10/09/2024 [id number] Ambulatory Buildin 682l5c-4tss -0d14-6938- tn2mj4g8c95 d [facility] 10/02/2024 [id number] Ambulatory Building: 6i928u-43w8 -96b2-rsw8- [id number] a [facility] 09/22/2024/09/23/19 25 [id number] Ambulatory Building:[facility] 09/22/2024/09/23/19 25 [id number] Ambulatory Building:[facility] 09/11/2024 [id number] Ambulatory Buildin 400p3r-7gnz -9v30-5948- kj1dn3p8b32 d [facility] 09/04/2024 [id number] Ambulatory Building: 8h641p-34d8 -26g5-wwj1- [id number] a [facility] 09/04/2024 [id number] Ambulatory Building: 9t047y-89v4 -23c0-urz7- [id number] a [facility] 08/31/2024 [id number] Ambulatory Building: 4l271n-51j8 -56e3-asr6- [id number] a [facility] 08/27/2024 [id number] Ambulatory Buildin 218f1o-3wab -1x15-0743- mx0vf8g7o39 d [facility] 08/24/2024/08/25/19 25 [id number] Ambulatory ENT SpecBuildin g:ENT Spec [facility] 08/12/2024 [id number] Ambulatory Buildin 039k2p-8xoj -0w45-9334- rz9ig3l3m97 d [facility] 08/10/2024/08/13/19 25 [id number] Ambulatory Building:[facility] 08/10/2024/08/13/19 25 [id number] Ambulatory Building:[facility] 08/06/2024/08/09/19 25 [id number] Ambulatory Building:[facility] 08/06/2024 [id number] Ambulatory Buildin 723z7c-3hxq -1b98-3389- kp9nb7r7r75 d [facility] 08/06/2024 [id number] Ambulatory Buildin 684z7d-3kkj -8f41-0560- ew7iy4j4z40 d [facility] 07/20/2024/07/21/19 25 [id number] Ambulatory Building:[facility] 07/13/2024 [id number] Ambulatory Buildin 964x2t-3jnj -8d59-2959- vv3zk8h7a73 d [facility] 06/01/2024 [id number] Ambulatory Buildin 591z3j-6hdt -5w93-9710- jv4te7j2f33 d [facility] 05/20/2024 [id number] Ambulatory Buildin 157j2h-7sew -9h04-5432- bj1ti8b3q27 d [facility] 05/05/2024 [id number] Ambulatory Building: 3f043w-14g4 -96h9-egt8- [id number] a [facility] 05/05/2024 [id number] Ambulatory Building: 1r450j-41b0 -68b0-ats8- [id number] a [facility] 04/30/2024 [id number] Ambulatory Buildin 166z3y-4igl -8d39-1684- zm4az6i5p62 d [facility] 04/27/2024 [id number] Ambulatory Buildin 207d2u-6sog -9t38-9761- ke7yu9h3s59 d [facility] 04/24/2024 [id number] Ambulatory Buildin 625x1l-5kgt -6r38-6727- wv1ga1m8h32 d [facility] 04/24/2024 [id number] Ambulatory Buildin 693n3m-7ura -1e75-1370- wv7fz0e6j54 d [facility] 04/23/2024 [id number] Ambulatory Buildin 117n4a-4opo -5n17-1461- dk0at9m4z56 d [facility] 04/14/2024 [id number] Ambulatory Building:ec 1k199m-55z4 -41v7-leb5- [id number] a [facility] 04/13/2024 [id number] Ambulatory Buildin 796j8z-6lro -9e13-5052- ky0un3i0s57 d [facility] 04/09/2024 [id number] Ambulatory Buildin 377p9i-3esj -2o02-8524- kk5op7k0j11 d [facility] 04/08/2024 [id number] Ambulatory Buildin 391i2y-7nsm -1a31-7920- ba7hw8m2l65 d [facility] 04/08/2024 [id number] Ambulatory Buildin 565c3p-0npt -8u32-1969- bk1bn3l4m89 d [facility] 04/07/2024/04/07/20 24 [id number] THIERRY BINGHAM [facility] 5972 [facility] 04/07/2024 [id number] Ambulatory Buildin 698g4u-80z7 -63a1-0557- ozv707z5v27 a [facility] 04/06/2024/04/06/20 24 [id number] Ambulatory Building:[facility] 04/02/2024 [id number] THIERRY BINGHAM Ambulatory Building:[facility] 03/23/2024/03/23/20 24 [id number] Ambulatory Building:[facility] 03/21/2024/03/21/20 24 [id number] Ambulatory Building:[facility] 03/19/2024/03/19/20 24 [id number] Ambulatory Building:[facility] 03/19/2024 [id number] Ambulatory Buildin 069y7d-7tns -2m17-8990- hy0xw5w6v39 d [facility] 03/18/2024/03/18/20 24 [id number] THIERRY BINGHAM [facility] d: 5966 [facility] 03/18/2024 [id number] Ambulatory Buildin 481g1e-73i2 -86q5-9197- qjl109s6i73 a [facility] 03/17/2024 [id number] Ambulatory Buildin 525b1i-8cxj -3k80-5576- zk5pi9l3d99 d [facility] 03/16/2024 [id number] Ambulatory Buildin 546w8l-8pqb -1m45-5594- to5pn6y3e77 d [facility] 03/11/2024/03/11/20 24 [id number] Ambulatory Building:[facility] 03/10/2024 [id number] Ambulatory Buildin 755a8x-7odw -6n07-1450- uc6bk2v6c69 d [facility] 03/10/2024 [id number] Ambulatory Buildin 565u0j-1gvz -5p57-0628- ql4uz5u9r08 d [facility] 02/27/2024 [id number] Ambulatory Buildin 430v4d-0yni -0w57-5773- kg6nc8d9u19 d [facility] PAYERS ENCOUNTER GUARANTOR PAYER SUBSCRIBER SOURCE 01/07/2025 Primary Insurance:Matthew Number: [id number] Date:2023-08-13 MIKAEL REYESSIERRA: [id number] [place] [address] [facility] 01/07/2025 Secondary Insurance:[employer] [place] MEDICA[place]Policy Number: [id number] Date:2023 BLANKA DIANA: [id number] 0 [facility] [address] [address] [facility] 12/02/2024 Blanka BarajasB: [address] [place], [place] [address], [place] [address] Primary Insurance:Allied Benefit - [place]ETNA 28602Evmmuj Number: [id number] Date:1075-30-01Zcjr Name:ERIC FariasHIEU: [id number] [address] [address] [facility] 12/02/2024 Secondary Insurance:[employer] Medicaid - 30725Khmjhj Number: [id number] Date:Plan Name:DAMIEN Moscoso Diana: [id number] [address] [place] [address] [facility] 11/27/2024 Blanka Ortiz: [address] [place], [place] [address], [place] [address] Primary Insurance:Allied Benefit - [place]ETNA [id number] Number: [id number] Date:0959-81-19Zphm Name:ERIC ReyesSierra: [id number] [address], [place] [address] [facility] 11/27/2024 Secondary Insurance:[employer] Medicaid - 22168Rrefze Number: [id number] Date:Plan Name:DAMIEN Moscoso Diana: [id number] [address] [place] [address] [facility] 11/24/2024 Blanka Ortiz: [id number] [address] [place] [address] Primary Insurance:Allied Benefit - [place]ETNA 41786Epmrxq Number: [id number] Date:7171-19-13Cvow Name:ERIC Ortiz: [id number] [address], [place] [address] [facility] 11/24/2024 Secondary Insurance:[employer] Medicaid - 88168Mxtdpz Number: [id number] Date:Plan Name:DAMIEN Ortiz: [id number] [address] [place] [address] [facility] 11/20/2024 Blanka Ortiz: [address] [place] [address] Primary Insurance:Allied Benefit - [place]ET[place] [id number] Number: [id number] Date:7041-49-41Uyyf Name:ERIC Ortiz: [id number] [address] [address] [facility] 11/20/2024 Secondary Insurance:[facility] - 388[address]Sgvwjp Number: [id number] Date:Plan Name:DAMIEN Ortiz: [id number] [address] [place] [address] [facility] 11/19/2024 Blanka Ortiz: [address] [place], [place] [address], [place] [address] Primary Insurance:Allied Benefit - [place]ETNA [id number] Number: [id number] Date:2584-16-83Dekk Name:ERIC Ortiz: [id number] [address] [address] [facility] 11/19/2024 Secondary Insurance:[facility] - 390[address]Lzhaom Number: [id number] Date:Plan Name:DAMIEN Ortiz: [id number] [address] [place] [address] [facility] 11/16/2024 Blanka Ortiz: [address] [place] [address] Primary Insurance:Allied Benefit - [place]ET[place] 18919Wriuzh Number: [id number] Date:1549-23-00Itna Name:ERIC Ortiz: [id number] [address] [address] [facility] 11/16/2024 Secondary Insurance:[employer] Medicaid - 22189Wshxqq Number: [id number] Date:Plan Name:DAMIEN Ortiz: [id number] [address] [place] [address] [facility] 10/19/2024 Blanka Ortiz: [address] [facility] [place] [address] Primary Insurance:Allied Benefit - [place]ET[place] [id number] Number: [id number] Date:2475-54-16Mayq Name:ERIC Ortiz: [id number] [address] [address] [facility] 10/19/2024 Secondary Insurance:[employer] Medicaid - 48444Dqcxzc Number: [id number] Date:Plan Name:DAMIEN Ortiz: [id number] [address] [place] [address] [facility] 10/09/2024 lBanka Ortiz: [address] [place] [address] Primary Insurance:Allied Benefit - [place]ETNA [id number] Number: [id number] Date:1071-06-39Ihzf Name:ERIC Ortiz: [id number] [address] [address] [facility] 10/09/2024 Secondary Insurance:[facility] - [address]60[address]Qayngf Number: [id number] Date:Plan Name:DAMIEN Ortiz: [id number] [address] [place] [address] [facility] 10/02/2024 Blanka Ortiz: [address] [place] [address] Primary Insurance:Allied Benefit - [place]ETNA [id number] Number: [id number] Date:6259-94-99Rimg Name:ERIC BarajasFeliz: [id number] [address] [place] [address] [facility] 10/02/2024 Secondary Insurance:[employer] Medicaid - 20535Wafiwd Number: [id number] Date:Plan Name:DAMIEN FariasHIEU: [id number] [address] [place] [address] [facility] 09/22/2024 BLANKA BARAJASB: [place], [place] [address]Ujs: (HP) Primary Insurance:ALLIED BENEFIT SYSTEMPolicy Number: [id number] Date:2021-04-29 MIKAEL FARIASHIEU: [id number] [place], [place] [address]Ewa: (HP) [facility] 09/22/2024 Secondary Insurance:CARESOURCEPo licy Number: [id number] Date:6963-95-18[address] [place] [address]JQ: BLANKA ORTIZ: [id number] [place], [place] [address]Mhz: (HP) [facility] 09/22/2024 BLANKAIsak BARAJASB: [place], [place] [address]Puu: (HP) Primary Insurance:ALLIED BENEFIT SYSTEMPolicy Number: [id number] Date:2021-04-29 MIKAEL FARIASHIEU: [id number] [place], [place] [address]Ptr: (HP) [facility] 09/22/2024 Secondary Insurance:CARESOURCEPo licy Number: [id number] Date:7542-86-91[address] [address]CW: BLANKA ORTIZ: [id number] [place], [place] [address]Ynn: ([facility] 09/11/2024 Blanka Diana: [address] [place] [address] Primary Insurance:Allied Benefit - [place]ETNA 85206Bmbuef Number: [id number] Date:0642-09-52Imut Name:ERIC BarajasFeliz: [id number] [address], [place] [address] [facility] 09/11/2024 Secondary Insurance:[facility] - [address]Sarbjg Number: [id number] Date:Plan Name:DAMIEN Moscoso Diana: [id number] [address] [place] [address] [facility] 09/04/2024 Blanka Ortiz: [address] [place] [id number] Primary Insurance:[employer] Benefit - [employer] 53920Ahucrd Number: [id number] Date:3341-66-13Filw Name:ERIC BarajasFeliz: [id number] [address], [place] [address] [facility] 09/04/2024 [facility] - [id number] Number: [id number] Date:Plan Name:DAMIEN Jarvisa Diana: [id number] [address] [place] [id number] [facility] 08/31/2024 Blanak Ortiz: [address] [place] [id number] Primary Insurance:[employer] Benefit - [employer] 34820Uximtx Number: [id number] Date:1945-84-28Rkds Name:ERIC BarajasFeliz: [id number] [address], [place] [address] [facility] 08/31/2024 Secondary Insurance:[employer] - [id number] Number: [id number] Date:Plan Name:DAMIEN Ortiz: [id number] [address] [place] [address] [facility] 08/27/2024 Blanka Diana: [id number] [address] [place] [address] Primary Insurance:Allied Benefit - AETNA 31350Qgbmda Number: [id number] Date:1524-47-66Nimi Name:ERIC FariasHIEU: [id number] [address], [place] [address] [facility] 08/27/2024 Secondary Insurance:C[employer] Medicaid - 06197Lvoxah Number: [id number] Date:Plan Name:DAMIEN FariasHIEU: [id number] [address] [place] [address] [facility] 08/24/2024 Blanka Kelsey Ortiz: [address] [address]Cxz: () Primary Insurance:Self PayPolicy Number: Effective Date:9021-47-42Jcuo Name:ELIZ Blanka R Diana: [id number] [address] [address]~[place] .[employer] [facility] 08/12/2024 Blanka Diana: [id number] [address] [place] [address] Primary Insurance:Allied Benefit - AETNA 05377Rocfqk Number: [id number] Date:0257-48-60Pheo Name:ERIC FariasHIEU: [id number] [address], [place] [address] [facility] 08/12/2024 Secondary Insurance:[employer] Medicaid - 75322Vkyfur Number: [id number] Date:Plan Name:DAMIEN Moscoso Diana: [id number] [address] [place] [address] [facility] 08/10/2024 BLANKA ORTIZ: [place], [place] [address]Udj: (HP) Primary Insurance:ALLIED BENEFIT SYSTEMPolicy Number: [id number] Date:2021-04-29 MIKAEL REYESMESSIB: [id number] [place], [place] [address]Keh: (HP) [facility] 08/10/2024 Secondary Insurance:CARESOURCEPo licy Number: [id number] Date:6009-34-50EK [address] [address]UG: BLANKA ORTIZ: [id number] [place], [place] [address]Die: (HP) [facility] 08/10/2024 BLANKA ORTIZ: [place], [place] [address]Xpu: (HP) Primary Insurance:ALLIED BENEFIT SYSTEMPolicy Number: [id number] Date:2021-04-29 MIKAEL DIANA: [id number] [place], [place] [address]Aku: (HP) [facility] 08/10/2024 Secondary Insurance:CARESOURCEPo licy Number: [id number] Date:6410-27-91BJ [address] [address]RN: BLANKA ORTIZ: [id number] [place], [place] [address]Qui: (HP) [facility] 08/06/2024 BLANKA ORTIZ: [place], [place] [address]Llw: (HP) Primary Insurance:ALLIED BENEFIT SYSTEMPolicy Number: [id number] Date:2021-04-29 MIKAEL REYESSIERRA: [id number] [place], [place] [address]Tze: (HP) [facility] 08/06/2024 Secondary Insurance:CARESOURCEPo licy Number: [id number] Date:9646-47-51AA [facility] Remi[address] [place] [address]RU: BLANKA ORTIZ: [id number] [place], [place] [address]Byu: (HP) [facility] 08/06/2024 Blanka Ortiz: [address] [place] [address], [place] [address] Primary Insurance:Allied Benefit - AETNA 28373Eyyuwf Number: [id number] Date:9835-50-86Acgu Name:ERIC Ortiz: [id number] [address] [place] [address] [facility] 08/06/2024 Secondary Insurance:[employer] Medicaid - 92162Tmstob Number: [id number] Date:Plan Name:DAMIEN FariasHIEU: [id number] [address] [place] [address], [place] [address] [facility] 08/06/2024 Blanka Ortiz: [address] [place], [place] [address], [place] [address] Primary Insurance:Allied Benefit - AETNA 43001Htfpdq Number: [id number] Date:5959-57-27Wgwn Name:ERIC BarajasFeliz: [id number] [address] [address] [facility] 08/06/2024 Secondary Insurance:[employer] Medicaid - 88412Sjtoyf Number: [id number] Date:Plan Name:DAMIEN FariasHIEU: [id number] [address] [place], [place] [address], [place] [address] [facility] 07/20/2024 BLANKA ORTIZ: [place], [place] [address]Rlw: () Primary Insurance:ALLIED BENEFIT SYSTEMPolicy Number: [id number] Date:2021-04-29 MIKAEL BARAJASFeliz: [id number] [place], [place] [address]Cbz: () [facility] 07/20/2024 Secondary Insurance:CARESOURCEPo licy Number: [id number] Date:7475-81-85BG[address] [address]AM: BLANKA Cole RHONDAB: [id number] [place], [place] [address]Vsa: () [facility] 07/13/2024 Blanka Ortiz: [address] [place] [address] Primary Insurance:Allied Benefit - AETNA 86806Sgknvo Number: [id number] Date:3742-05-32Bhjb Name:ERIC Ortiz: [id number] [address] [address] [facility] 07/13/2024 Secondary Insurance:Caresource Medicaid - 02957Yljnhk Number: [id number] Date:Plan Name:DAMIEN BarajasFeliz: [id number] [address], [place] [address] [facility] 06/01/2024 Blanka Ortiz: [id number] [address] [place] [address] Primary Insurance:Allied Benefit - AETNA 78614Zephuw Number: [id number] Date:2215-63-71Xfjb Name:ERIC Ortiz: [id number] [address], [place] [address] [facility] 06/01/2024 Secondary Insurance:[employer] Medicaid - 55478Rvufdj Number: [id number] Date:Plan Name:DAMIEN FariasHIEU: [id number] [address], [place] [address] [facility] 05/20/2024 Blanka Ortiz: [id number] [address] [place] [address] Primary Insurance:Allied Benefit - AETNA 55930Dmhgry Number: [id number] Date:2422-92-78Ujwh Name:ERIC Ortiz: [id number] [address], [place] [address] [facility] 05/20/2024 [facility] - 17089Oypwbv Number: [id number] Date:Plan Name:DAMIEN Ortiz: [id number] [address], [place] [address] [facility] 05/05/2024 Blanka Ortiz: [id number] [address] [address] Primary Insurance:Allied Benefit - AETNA 63052Mrczda Number: [id number] Date:8333-76-01Jbgv Name:ERIC Ortiz: [id number] [address] [address] [facility] 05/05/2024 Secondary [facility] - 77420Ttnjxe Number: [id number] Date:Plan Name:DAMIEN Ortiz: [id number] [address] [address] [facility] 04/14/2024 Blanka Ortiz: [id number] [address] [address] Primary Insurance:Allied Benefit - AETNA 38875Azpfpw Number: [id number] Date:3550-04-31Xpzs Name:ERIC Ortiz: [id number] [address] [address] [facility] 04/14/2024 Secondary [facility] - 65988Fzakmi Number: [id number] Date:Plan Name:DAMIEN Ortiz: [id number] [address], [place] [address] [facility] 04/13/2024 Blanka Ortiz: [address] [address] Primary Insurance:Allied Benefit - AETNA 25745Korvlp Number: [id number] Date:2560-90-58Zzrn Name:ERIC Ortiz: [id number] [address] [address] [facility] 04/13/2024 Secondary Insurance:[place] - 66760Mlwdst Number: [id number] Date:Plan Name:DAMIEN Ortiz: [id number] [address] [address] [facility] 04/09/2024 Blanka Ortiz: [id number] [address] [address] Primary Insurance:Allied Benefit - AETNA 63648Rbadxe Number: [id number] Date:0718-30-94Acyg Name:ERIC Ortiz: 2701-27-53OCS770 [address], [place] [address] [facility] 04/09/2024 Secondary [facility] - 85024Rjdjjh Number: [id number] Date:Plan Name:DAMIEN Ortiz: [id number] [address] [address] [facility] 04/08/2024 Blanka Ortiz: [id number] [address] [address] Primary Insurance:Allied Benefit - AETNA 17299Jssqld Number: [id number] Date:2821-36-16Jdhv Name:ERIC Ortiz: [id number] [address] [address] [facility] 04/08/2024 Secondary Insurance:[facility] - 48604Rfozif Number: [id number] Date:Plan Name:DAMIEN Ortiz: [id number] [address] [address] [facility] 04/08/2024 Blanka FariasHIEU: [address] [address] Primary Insurance:Allied Benefit - AETNA 25613Dttlac Number: [id number] Date:2244-21-29Yure Name:ERIC Ortiz: [id number] [address] [address] [facility] 04/08/2024 Secondary Insurance:[employer] Medicaid - 29733Tcrapi Number: [id number] Date:Plan Name:DAMIEN Ortiz: [id number] [address] [address] [facility] 04/07/2024 BLANKA FARIASHIEU: [place] [address]Daf: () Primary Insurance:GENERIC COMMERCIALPolicy Number: [id number] Date:2022-05-30 MIKAEL ORTIZ: [id number] [place], [place] [address]Dzr: () [facility] 04/07/2024 Secondary Insurance:CARESOURCEPo licy Number: [id number] Date:2022-11-27 BLANKA BARAJASFeliz: [id number] [place], [place] [address]Pct: () [facility] 04/07/2024 Blanka FariasHIEU: [id number] [address] [address] Primary Insurance:Allied Benefit - AETNA 12746Ugixaj Number: [id number] Date:0439-52-71Pglt Name:ERIC Ortiz: [id number] [address], [place] [address] [facility] 04/07/2024 Secondary Insurance:[employer] Medicaid - 53705Pirqqp Number: [id number] Date:Plan Name:DAMIEN Ortiz: [id number] [address] [address] [facility] 04/06/2024 BLANKA ORTIZ: [place], [place] [address]Bsm: (HP) Primary Insurance:ALLIED BENEFIT SYSTEMPolicy Number: [id number] Date:2021-04-29 MIKAEL FAIRASHIEU: [id number] [place], [place] [address]Yqi: (HP) [facility] 04/06/2024 Secondary Insurance:CARESOURCEPo licy Number: [id number] Date:8260-11-43AM [address] [address]HG: BLANKA ORTIZ: [id number] [place], [place] [address]Une: (HP) [facility] 04/02/2024 BLANKA ORTIZ: [place], [place] [address]Mjm: (HP) Primary Insurance:CARESOURCEPo licy Number: [id number] Date:2022-11-27 BLANKA ORTIZ: [id number] [place], [place] [address]Bgl: (HP) [facility] 03/23/2024 BLANKA ORTIZ: [place], [place] [address]Jvr: (HP) Primary Insurance:ALLIED BENEFIT SYSTEMPolicy Number: [id number] Date:2021-04-29 MIKAEL ORTIZ: [id number] [place], [place] [address]Jih: (HP) [facility] 03/23/2024 Secondary Insurance:CARESOURCEPo licy Number: [id number] Date:9364-52-32HK [address] [address]XS: BLANKA Kelsey ORTIZ: [id number] [place], [place] [address]Ljc: (HP) [facility] 03/21/2024 BLANKA Kelsey BARAJASB: [place], [place] [address]Fem: (HP) Primary Insurance:ALLIED BENEFIT SYSTEMPolicy Number: [id number] Date:2021-04-29 MIKAEL DIANA: [id number] [place], [place] [address]Arb: (HP) [facility] 03/21/2024 Secondary Insurance:CARESOURCEPo licy Number: [id number] Date:8772-55-56GW [address] [address]GB: BLANKA Kelsey ORTIZ: 3160-96-51NLK150 [place], [place] [address]Lkz: (HP) [facility] 03/19/2024 BLANKA Kelsey ORTIZ: [place], [place] [address]Ehc: (HP) Primary Insurance:ALLIED BENEFIT SYSTEMPolicy Number: [id number] Date:2021-04-29 MIKAEL DIANA: [id number] [place], [place] [address]Ekg: (HP) [facility] 03/19/2024 Secondary Insurance:CARESOURCEPo licy Number: [id number] Date:2767-03-03SJ [address] [address]AM: BLANKA ORTIZ: 5505-70-77CFU874 [place], [place] [address]Yvh: (HP) [facility] 03/19/2024 Blanka Ortiz: [id number] [place] [place] [address] Primary Insurance:Allied Benefit - AETNA 71113Tgulcu Number: [id number] Date:6364-47-25Aqle Name:ERIC Ortiz: [id number] [address], [place] [address] [facility] 03/19/2024 Secondary Insurance:[employer] Medicaid - 85929Ovxwcw Number: [id number] Date:Plan Name:DAMIEN Ortiz: [id number] [address] [address] [facility] 03/18/2024 BLANKA FARIASHIEU: [place] [address]Jsd: () Primary Insurance:GENERIC COMMERCIALPolicy Number: [id number] Date:2022-05-30 MIKAEL ORTIZ: [id number] [place], [place] [address]Wbo: () [facility] 03/18/2024 Secondary Insurance:CARESOURCEPo licy Number: [id number] Date:2022-11-27 BLANKA FARIASHIEU: [id number] [place], [place] [address]Ctn: () [facility] 03/18/2024 Blanka ReyesMessiB: [id number] [address] [address] Primary Insurance:Allied Benefit - AETNA 63079Fyqzct Number: [id number] Date:6869-86-31Pmma Name:EIRC Ortiz: [id number] [address], [place] [address] [facility] 03/18/2024 Secondary Insurance:Caresource Medicaid - 369[address] Number: [id number] Date:Plan Name:DAMIEN Ortiz: [id number] [address] [address] [facility] 03/17/2024 Blanka Ortiz: [id number] [address] [address] Primary Insurance:Allied Benefit - AETNA 30886Slmyfi Number: [id number] Date:4221-43-46Afan Name:ERIC Ortiz: [id number] [address] [address] [facility] 03/17/2024 Secondary Insurance:[employer] Medicaid - 496[address]Kwnnrl Number: [id number] Date:Plan Name:DAMIEN Ortiz: [id number] [address], [place] [address] [facility] 03/16/2024 Blanka BarajasB: [address] [address] Primary Insurance:Allied Benefit - AETNA 90999Toqsxi Number: [id number] Date:2794-88-00Jurq Name:ERIC Ortiz: [id number] [address] [address] [facility] 03/16/2024 Secondary [facility] - 938[address]Llykpi Number: [id number] Date:Plan Name:DAMIEN Ortiz: [id number] [address], [place] [address] [facility] 03/11/2024 BLANKA ORTIZ: [place], [place] [address]Tbn: () Primary Insurance:CARESOURCEPo licy Number: [id number] Date:2022-11-27 BLANKA ORTIZ: 4680-67-79KVH326 [place], [place] [address]Zvz: () [facility] 03/10/2024 Blanka BarajasB: [address] [address] Primary Insurance:Allied Benefit - AETNA 03589Xaaxai Number: [id number] Date:Plan Name:ERIC Ortiz: [id number] [address], [place] [address] [facility] 03/10/2024 Secondary Insurance:[employer] Medicaid - 88924Bvmvyt Number: [id number] Date:Plan Name:DAMIEN Ortiz: [id number] [address], [place] [address] [facility] 03/10/2024 Blanka Ortiz: [address] [address] Primary Insurance:Allied Benefit - AETNA 60803Xlvhtp Number: [id number] Date:Plan Name:ERIC Ortiz: [id number] [address], [place] [address] [facility] 03/10/2024 Secondary Insurance:[employer] Medicaid - 31114Policy Number: [id number] Date:Plan Name:DAMIEN Ortiz: [id number] [address] [address] [facility] 02/27/2024 Blanka Ortiz: [address] [address] Primary Insurance:Allied Benefit - AETNA 26982Ynhybs Number: [id number] Date:Plan Name:ERIC Ortiz: [id number] [address], [place] [address] [facility] 02/27/2024 Secondary Insurance:[employer] Medicaid - 31114Policy Number: [id number] Date:Plan Name:DAMIEN Ortiz: 2624-55-04VBH189 [address], [place] [address] [facility]
--- NOTE | 2025-01-26 06:57 | MR_ITS ---
The [place] [id number] Patient Name: MARILEE MACKENZIE MRN: [id number] date: 2000 Sex: F Assigned Patient Location: MRI Current Patient Location: MRI Accession/Order Number: [id number] Exam Date: 01/26/2025 06:57 Report Date: 01/26/2025 07:59 At the request of: LOUISE LEMOS MD Procedure: MR cervical spine wo con MR cervical spine wo con 01/26/2025 7:22 AM SIGNS AND SYMPTOMS: ^Cervical disc disorder, unspecified, in an unspecified cerv PROTOCOL: Multiplanar multisequence MR images of the cervical spine without IV contrast COMPARISON: None. FINDINGS: The bones of the cervical spine are in anatomic alignment. There is preservation of vertebral body heights. There is disc desiccation and mild disc height loss at C5-C6. The marrow signal is within normal limits. The cord is normal in signal. No epidural or paraspinous fluid collection is appreciated. The visualized paraspinous soft tissues are within normal limits. The prevertebral soft tissues are within normal limits. At C2-C3: There is a normal disc, central canal, and neural foramen. At C3-C4: There is a normal disc, central canal, and neural foramen. At C4-C5: There is a broad-based disc bulge. There is mild spinal canal narrowing without significant neural foraminal narrowing. At C5-C6: There is a normal disc, central canal, and neural foramen. At C6-C7: There is a normal disc, central canal, and neural foramen. At C7-T1: There is a normal disc, central canal, and neural foramen. MR/MR cervical spine wo con IMPRESSION: No cord compression or cord signal abnormality. Similar mild degenerative changes are noted predominantly at C4-C5. Impression dictated by: Genaro Thurman M.D. 01/26/2025 7:59 AM Dictation Location: [place] [address] Electronically authenticated by: [id number] Y Date: 01/26/2025 07:59
== END 2025-01-26 06:49 | disposition home or self-care (01) ==
LOC: RAD 06:49 → MRI 06:52
PROVIDERS: PCP Family Medicine; Visit Provider Family Medicine
DX: M50.90 Cervical disc disorder, unspecified, unspecified cervical region (principal); M50.30 Other cervical disc degeneration, unspecified cervical region
CPT/HCPCS: 72141

== ENCOUNTER 2025-03-08 15:57 | Outpatient (OUT) | payer OTHER, SELFPAY ==
--- NOTE | 2025-03-08 | XR_ITS ---
The [address] [address] Patient Name: MARILEE MACKENZIE MRN: [id number] date: 2000 Sex: F Assigned Patient Location: LAB Current Patient Location: Accession/Order Number: [id number] Exam Date: 03/08/2025 16:20 Report Date: 03/09/2025 08:41 At the request of: LOUISE LEMOS MD Procedure: XR abdomen 1V SINGLE VIEW ABDOMEN COMPARISON: 12/02/2024 and ultrasound 11/02/2021 CLINICAL DATA: Bilateral flank and pelvic pain. Dysuria. Supine views of the abdomen and pelvis were obtained. There is mild air and stool within the colon. There is minimal small bowel air without disproportionate distention. The kidneys are partially obscured. No definite radiopaque renal, ureteral or bladder stones are seen. No soft tissue masses are identified. The bony structures are intact. XR/XR abdomen 1V IMPRESSION: NO OBVIOUS RADIOPAQUE STONES. Impression dictated by: Liv Coreas M.D. 03/09/2025 8:41 AM Dictation Location: [place] [address] Electronically authenticated by: [id number] Y Date: 03/09/2025 08:41
--- OUTSIDE RECORDS SUMMARY | 2025-03-08 16:01 | XMS_ITS | Clinical Summary ---
Author Organization [facility] Address [address] [place] [address] Care Team Providers Care Surveying Crew Rodman Name Role Phone Jesús Mccullough MD Primary Care Provider [phone] Encounters DateTypeDepartmentCare NejlZjazdrdnygp27/09/2025 10:40 AM EDTFollow-Up [facility] [address] [place] [address] Ward Schumacher MD Chronic right-sided low back pain without sciatica (Primary Dx); Neck pain, chronic; Prolapsed lumbar disc01/07/2025 10:20 AM EDTOffice Visit [facility] [address] [place] [address] Ward Schumacher MD Neck pain, chronic (Primary Dx); Chronic right-sided low back pain without tyhqipwl77/20/2025Telephone [facility] [address] [place] [address] [place] [phone] Leana Rangel MA from Last 3 Months Social History Tobacco UseTypesPacks/DayYears UsedDateSmoking Tobacco: Never AssessedUT Safety & EnvironmentAnswerDate RecordedFear of Current or Ex-PartnerNot on file 08/13/2023Emotionally AbusedNot on file08/13/2023hysically AbusedNot on file 08/13/2023Sexually AbusedNot on file08/13/2023hysically or Sexually AbusedNot on file08/13/2023CommentsUnknownSex and Gender InformationValueDate RecordedSex Assigned at BirthNot on fileLegal HosEvnbqd80/16/2024 8:44 AM EDT Gender IdentityChoose not to mfudqyfe04/11/2025 10:21 AM EDTSexual Orientation Choose not to mzepwunr12/11/2025 10:21 AM EDT Last Filed Vital Signs Vital SignReadingTime TakenCommentsBlood Nawiwzqb451/9002/04/2025 10:44 AM EDT Kwfmi717502/04/2025 10:44 AM EDTTemperature--Respiratory Kplv329402/04/2025 10:44 AM EDTOxygen Dmclldhdwp89%02/04/2025 10:44 AM EDTInhaled Oxygen Concentration-- Weight--Height--Body Mass Index-- Plan of Treatment Health MaintenanceDue DateLast DoneCommentsDepression Lazaafify77/02/2015HPV Vaccines (1 - 3-dose series)2017Meningococcal B Vaccine (1 of 2 - Standard)2018Pap Smear07/30/2023OVID-19 Vaccine ( - season) 2024Influenza Vaccine (#1)5Adult Rtvxdfu93/29/, 11/19/2014Zoster Vaccines (1 of 2), 09/09/2003HIB Vaccines Gxiduitip47/13/2004, 02/04/2003, 2002, Additional history exists Pneumococcal Vaccine: Pediatrics (0 to 5 Years) and At-Risk Patients (6 to 64 Years)Aged Out09/09/2003, 02/04/2003, 2002, Additional history existsNo longer eligible based on patient's age to complete this topicIPV Vaccines Pvgmnhdus37/24/2008, 02/04/2003, 2002, Additional history existsVaricella JirdlussKgaijabqi29/24/2008, 09/09/2003Meningococcal NbtfrovVzjnettrv81/30/2019 Rotavirus VaccinesAged OutNo longer eligible based on patient's age to complete this topic Insurance * Guarantor: Juanis Farias TypeRelation to PatientDate of BirthPhone Billing AddressPersonal/TatotqLyti24/02/[address] [address] Care Teams Team MemberRelationshipSpecialtyStart DateEnd Date Jesús Mccullough MD [address] [facility] [place] [address] [facility]08/13/23
--- OUTSIDE RECORDS SUMMARY | 2025-03-08 16:04 | XMS_ITS | Clinical Summary ---
Author Organization [facility] Address [address] [place] [address] Care Team Providers Care Utility Sales And Service Manager Name Role Phone Unavailable Primary Care Provider Unavailabl e Social History Tobacco UseTypesPacks/DayYears UsedDateSmoking Tobacco: Never Assessed CommentsUnknownSex and Gender InformationValueDate RecordedSex Assigned at Not on fileLegal FxfXknfdc33/15/2023 6:49 PM EDTGender IdentityNot on fileSexual OrientationNot on file Plan of Treatment Not on file
--- OUTSIDE RECORDS SUMMARY | 2025-03-08 16:10 | XMS_ITS | CCD ---
Author Organization [facility] Care Team Providers Care Reinsurance Claim Analyst Name Role Phone Louise Lemos Primary Care [...] DR LOUISE MUSTAFA Primary Care Unavailable AMINTA ., DR GIL Consulting Unavailable HOY ., DR GIL Admitting Unavailable HOBruna ., DR GLI Attending Unavailable GAGE JACK Consulting Unavailable AMINTA ., DR GIL Primary Care Unavailable HOBruna ., DR GIL Consulting Unavailable JOELY ., DR GIL Admitting Unavailable HOY ., DR GIL Attending Unavailable DR GAGE LYNCH V Consulting Unavailable AMINTA .DR GIL Primary Care Unavailable HOBruna ., DR GIL Admitting Unavailable HOY ., [...] Care Provider DO Hunter Richards Attending Provider [phone] Hunter Richards Attending Unavailable Hunter Richards Admitting [...] Unavailable Unavailable Mendeszoon DPM, Thierry Unavailable Unavailable Mendeszoon, Thierry Briggs Attending Unavailable Mendeszoon, Thierry Briggs Referring Unavailable Mendeszoon, Thierry Briggs Attending Unavailable MendeszoonThierry Referring Unavailable Louise Lemos MD Primary Care Provider [phone] Mendeszoon DPM, Thierry Unavailable Unavailable Mendeszoon DPM, [...] Thierry Unavailable Unavailable No Information Unavailable Unavailable Jourdan CARRILLO, Thierry Unavailable Unavailable Louise Lemos MD Primary Care Unavaila Jackie Estrada Attending Unavailable LOUISE LEMOS Primary Care Unavailable THIERRY BRAUN Admitting Unavailable THIERRY BRAUN Attending Unavailable AMINTATERELOUISEVIVIAN VELASQUEZ Primary Care Unavailable THIERRY BRAUN Admitting Unavailable THIERRY BRAUN Attending Unavailable JOELLOUISE Roman Primary Care Unavailable THIERRY BRAUN Admitting Unavailable THIERRY BRAUN Attending Unavailable AMINTA LOUISEVIVIAN VELASQUEZ Primary Care Unavailable Louise Lemos MD Primary Care Provider [phone] HOY, LOUISE M Referring Unavailable HOY, LOUISE M Primary Care Unavailable HOY, LOUISE M Referring Unavailable HOY, LOUISE M Primary Care Unavailable CARLI AREVALO Attending Unavailable HOY, LOUISE M Referring Unavailable HOY, LOUISE M Primary Care Unavailable HOY, LOUISE M Referring Unavailable HOY, LOUISE M Primary Care Unavailable SHARONA OLIVEROS Referring Unavailable HOY, LOUISE M Primary Care [...] Care Unavailable HOY, LOUISE M Referring Unavailable WARD SCHUMACHER Attending Unavailable WARD SCHUMACHER Attending Unavailable Thierry Braun Attending Unavailable Thierry Braun Referring Unavailable Mendeszoon, Thierry Briggs Attending Unavailable Mendeszoon, Thierry Briggs Referring Unavailable Mendeszoon, Thierry Briggs Attending Unavailable Mendeszoon, Thierry Briggs Attending Unavailable Mendeszoon, Thierry Briggs Attending Unavailable Mendeszoon, Thierry Briggs Attending Unavailable Mendeszoon, Thierry Briggs Attending Unavailable Mendeszoon, Thierry Brigsg Attending Unavailable Mendeszoon, Thierry Briggs Attending Unavailable [...] Mendeszoon, Thierry Briggs Attending Unavailable Mendeszoon, Thierry J Referring Unavailable MendesThierry wood Attending Unavailable Thierry Braun Referring Unavailable Thierry Braun Attending Unavailable Thierry Braun Referring Unavailable MendThierry burciaga Attending Unavailable Thierry Braun Attending Unavailable Mendeszoon DPM, Thierry Unavailable Unavailable Mendeszoon DPM, Thierry Unavailable Unavailable MOUSSA, MOHAMAD Admitting Unavailable MODANIELLEA, MOHAMAD Attending Unavailable LOUISE LEMOS Primary Care Unavailable [facility] Consulting Unavailable ERINN JOHNSON Attending Unavailable LOUISE LEMOS Referring Unavailable LOUISE LEMOS Primary Care Unavailable Louise Lemos MD Primary Care Provider Sarah Haque DO Attending Provider [phone] Allergies Allergy ClassificationReported Allergen(s)Allergy TypeDate of OnsetReaction(s) FacilityAnti-Epileptic Agents (5 sources)topiramateDrug Mfjlliq41-82-0520TwmcgyriEztkq Health (20 sources)topiramate; Translations: [TOPIRAMATE]Drug [place]nnazsf30[place]28[place]5285[place]iku[place] (11 sources)Hydrocortisone / Neomycin / Polymyxin B; Translations: [DGZDNQGX-BUSPBSPGO-RN]Drug Jwcnpij27-97-2183Byglt: See Comments, Other, Other (See Comments)[facility] (1 source)topiramate; Translations: [Topamax][facility] ([facility] source)smoke; Translations: [smoke]Propensity to adverse reactions (disorder) [facility] (1 source)Grass; Translations: [Grass]Propensity to adverse reactions (disorder) [facility] (1 source)ALLERGIES NOT ON FILE; Translations: [ALLERGIES NOT ON FILE]Propensity to adverse reactions (disorder)[facility] Medications Current Medications MedicationDrug Class(es)DatesSig (Normalized)Sig (Original)acetaminophen 325 mg oral tablet (6 sources)Start: 43-70-4644vmli 1 tablet by mouth every four hours as xjaphk165 mg, oral, Every 4 hours PRN, pain mild (1-3), first line, Starting on Sat04/07/24 at 1606, Recovery (only), When able to take oral medications., If ordered PRN for pain, nurse is permitted to administer this medication for higher pain scores based on patient preference? YesStart: 04-07-2024 End: 23-46-1148yvio 975 mg by mouth once as needed for zbaq014 mg, oral, Once, On Sat04/07/24 at 1145, For 1 dose, Preprocedure, If ordered PRN for pain, nurs e is permitted to administer this medication for higher pain scores based on patient preference? YesStart: 03-18-2024 End: 60-16-5554pkks 975 mg by mouth once as needed for tmul155 mg, oral, Once, On Sat03/18/24 at 1230, For 1 dose, Preprocedure, If ordered PRN for pain, nurs e is permitted to administer this medication for higher pain scores based on patient preference? YesStart: 77-48-8491jkdj 1 tablet by mouth every twelve hoursAcetaminophen (Tylenol Arthritis Pain) 650 mg tablet extended release Active 650 MG PO Every 12 hours July 25, 2023 11:00pm Complies with drug therapytake 2 tablets by mouth every six hours as neededacetaminophen (Tylenol) 500 mg tablet Take 2 tablets (1,000 mg) by mouth every 6 hours if needed for mild pain (1 - 3). Activeacetaminophen 325 mg / oxyCODONE hydrochloride 5 mg oral tablet (20 sources)Opioid AgonistStart: 88-33-3635Noxvbvquf-Acetaminophen 5-325 mg tablet Active TAB PO 0 March 04, 2025 12:00am Complies with drug therapy Start: 51-43-7095ygbv 1 tablet by mouth every eight hours as neededPercocet 7.5 mg-325 mg tablet take 1 tablet by oral route every 8 hours as needed 1 tablet - ActiveStart: 21-44-0349vvnc 1 tablet by mouth every six hours as needed for painPercocet 10 mg-325 mg tablet take 1 tablet by oral route every 6 hours as needed for pain - ActiveStart: 29-68-1410ravu 1 tablet by mouth every four to six hours as neededPercocet 5 mg-325 mg tablet take 1 tablet by oral route every 4 - 6 hours as needed 1.00 tablet - ActiveStart: 23-65-1362upmXNCVXI-acetaminophen (Percocet) 5-325 mg tablet Take 1 tablet by mouth. 03/17/2024 Activetake 1 tablet by mouth every six hours as needed oxyCODONE-acetaminophen (PERCOCET) 5-325 mg per tablet TAKE 1 TABLET NEEDED BY MOUTH EVERY 6 HRSM51.36 Activeamoxicillin 875 mg / clavulanate 125 mg oral tablet (1 source)Penicillin-class AntibacterialStart: 10-07-2021 End: 57-17-9999segc 1 tablet by mouth twice dailyamoxicillin-clavulanate (AUGMENTIN) 875-125 MG per tablet Take 1 tablet by mouth 2 times daily for 7 days 14 tablet 0 10/07/2021 10/14/2021 Tmgqsn71 hr buPROPion hydrochloride 150 mg extended release oral tablet (2 sources)AminoketoneStart: 69-89-6462rtmg 1 tablet by mouth once daily Bupropion Hcl (Wellbutrin Sr) 150 mg tablet sustained-release 12 hr Active 150 MG PO Daily July 25, 2023 11:00pm Complies with drug therapycephalexin 500 mg oral capsule (20 sources)Cephalosporin AntibacterialStart: 85-21-2048jhnx 1 capsule by mouth every twelve hourscephalexin 500 mg capsule take 1 capsule by oral route every 12 hours 500 MG - Activecholecalciferol 0.05 mg oral capsule (11 sources)Vitamin DStart: 39-48-1900Cglddvwagplwkmg (Vitamin D3) 50 mcg (2,000 unit) capsule Active PO March 04, 2025 12:00am Complies with drug therapy Start: 94-21-2030nshr 1 capsule by mouth once dailycholecalciferol, vitamin D3, 2,000 units capsule TAKE 1 CAPSULE BY MOUTH EVERY DAY FOR 90 DAYS 11/30/2024 Active End: 20-14-2405Inugumsfqbdjazw (VITAMIN D3) 77537 UNITS CAPS Take 2,000 capsules by mouth once a week 0 06/13/2020iscontinued (Therapy completed) End: 53-52-9234dcwb 1 capsule by mouth once dailyCholecalciferol (VITAMIN D3) 50 MCG (2000 UT) CAPS Take 2,000 Units by mouth daily 0 06/13/2020 Discontinued (LIST CLEANUP)DULoxetine 60 mg delayed release oral capsule (3 sources)Serotonin and Norepinephrine Reuptake InhibitorStart: 99-38-5152ndci 1 capsule by mouth once dailyDULoxetine (CYMBALTA) 60 mg capsule Take 60 mg by mouth once daily. 12/18/2021 ActiveComment on above:Take 60 mg by mouth once daily.Levonorgestrel-Ethinyl Estrad (6 sources)Progestin, Estrogen, Progestin-containing Intrauterine DeviceStart: 36-16-3519Eqhvyzvggilwhd-Ethinyl Estrad (Vienva) 0.1-20 mg-mcg tablet Active TAB PO March 04, 2025 12:00am Complies with drug therapyStart: 52-49-6647hmen 1 tablet by mouth once dailyVIENVA 0.1-20 mg-mcg per tablet TAKE 1 TABLET BY MOUTH EVERY DAY FOR 28 DAYS 11/30/2024Start: 80-97-7250gatp 1 tablet by mouth once dailyVIENVA 0.1-20 mg-mcg per tablet TAKE 1 TABLET BY MOUTH EVERY DAY FOR 28 DAYS 11/30/2024 Activegabapentin 300 mg oral capsule (20 sources)Anti-epileptic AgentStart: 92-53-7789Jbwflfirng 300 mg capsule Active MG PO March 04, 2025 12:00am Complies with drug therapyStart: 04-27-2024 End: 55-96-8759ymyg 1 capsule by mouth twice daily, then take 2 capsules by mouth at bedtimegabapentin 300 mg capsule take 1 capsule by oral route 2 times every day and take 2 capsules by oral route at bedtime - Active Start: 04-24-2024 End: 00-61-3971nyqz 1 capsule by mouth three times dailygabapentin 300 mg capsule take 1 capsule by oral route 3 times every day 300 MG - No Longer ActiveStart: 04-07-2024 End: 60-06-3322cuwn 1 capsule by mouth nhqs574 mg, oral, Once, On Sat04/07/24 at 1145, For 1 dose, Preprocedure, Capsules may be opened and sprinkled on food (eg, applesauce, orange juice, puddingStart: 03-18-2024 End: 57-00-3751rdau 1 capsule by mouth gsqd593 mg, oral, Once, On Sat03/18/24 at 1230, For 1 dose, Preprocedure, Capsules may be opened and sprinkled on food (eg, applesauce, orange juice, pudding End: 01-11-7016bcaykbgcdr (NEURONTIN) 100 mg capsule Take 2 capsules (200 mg total) by mouth. 01/27/2025 Discontinued (Ineffective) End: 24-97-9583xgcl 2 capsules by mouth twice dailygabapentin (NEURONTIN) 400 MG capsule Take 800 mg by mouth 2 times daily. 0 06/13/2020 Discontinued(LIST CLEANUP)0.5 ml HYDROmorphone hydrochloride 1 mg/ml prefilled syringe (1 source)Opioid AgonistStart: .5 mg, intravenous, Every 5 min PRN, pain breakthrough, Starting on Sat04/07/24 at 1606, Recovery(only), Max total of 4 mg regardless of dose.ibuprofen 800 mg oral tablet (12 sources)Nonsteroidal Anti-inflammatory DrugStart: 84-98-0389tyqx 1 tablet by mouth every six hoursibuprofen (MOTRIN) 800 mg tablet Take 1 tablet (800 mg total) by mouth every 6 (six) hours. 02/11/2024 ActiveStart: 01-05-2016 End: 15-38-1088thoq 1 tablet by mouth every eight hours as needed for pain ibuprofen (ADVIL;MOTRIN) 800 MG tablet Take 1 tablet by mouth every 8 hours as needed for Pain 90 tablet 3 01/05/2016 06/13/2020 Discontinued (Therapy completed) End: 96-90-0698gdow 1 tablet by mouth every six hours as needed for pain ibuprofen (ADVIL;MOTRIN) 600 MG tablet Take 600 mg by mouth every 6 hours as needed for Pain 0 06/13/2020 Discontinued (LIST CLEANUP)ketorolac tromethamine 10 mg oral tablet (20 sources)Nonsteroidal Anti-inflammatory Drug, Cyclooxygenase InhibitorStart: 04-08-2024 End: 00-14-7690sraq 1 tablet by mouth every six hours as neededketorolac 10 mg tablet take 1 tablet by oral route every 6 hours as needed for up to 5 days total use 10 MG Dec-11-2024 - ActivemetFORMIN hydrochloride 500 mg oral tablet (5 sources)BiguanideStart: 14-95-7410GTMKYWGQD 500 mg tablet 03/05/2013 Active End: 40-86-3262ivyf 1 tablet by mouth twice daily at mealtimemetFORMIN (GLUCOPHAGE) 1000 MG tablet Take 1,000 mg by mouth 2 times daily (with meals) 0 06/13/2020 Discontinued (LIST CLEANUP)2 ml ondansetron 2 mg/ml injection (1 source)Serotonin-3 Receptor AntagonistStart: mg, intravenous, Once as needed, nausea/vomiting, first line, Starting on Sat04/07/24 at 1606, For 1 dose, Recovery (only), When administering via IV Push, administer over 3-5 minutes.oxyCODONE hydrochloride 5 mg oral tablet (7 sources)Opioid AgonistStart: 81-47-7140xqrr 1 tablet by mouth every four hours as mg, oral, Every 4 hours PRN, pain severe (7-10), second line, Starting on Sat04/07/24 at 1606, Recovery (only), When able to take oral medications., If ordered PRN for pain, nurse is permitted toadminister this medication for higher pain scores based on patient preference? YesStart: 27-52-1713lqlc 1 tablet by mouth every four hours as needed5 mg, oral, Every 4 hours PRN, pain moderate (4-6), second line, Starting on Sat04/07/24 at 1606, R ecovery (only), When able to take oral medications., If ordered PRN for pain, nurse is permitted toadminister this medication for higher pain scores based on patient preference? Yestake 1 tablet by mouth onceoxyCODONE (OxyCONTIN) 10 mg 12 hr tablet Take 1 tablet (10 mg total) by mouth every 12 (twelve) hours. Max Daily Amount: 20 mg Activeoxygen (O2) therapy (1 source)Start: 97-23-2175xviidsjqlz, Continuous PRN - O2/gases, other, Starting on Sat04/07/24 at 1606, Recovery (only), Device: Nasal Cannula, Rate in liters per minute: Other, Custom Value: 1-6 LPM, Keep O2 Sat Above: 92% phenazopyridine hydrochloride 200 mg oral tablet (1 source)Start: 11-19-3022Aeuezfqmkhqoopg 200 mg tablet Active MG PO March 04, 2025 12:00am Complies with drug therapyphentermine hydrochloride 37.5 mg oral tablet (2 sources)Sympathomimetic Amine AnorecticStart: 54-03-4322uynj 1 tablet by mouth once daily 30 minutes after breakfastPhentermine (Adipex-P) 37.5 mg tablet Active 37.5 MG PO Daily July 25, 2023 11:00pm must administer 30 minutes before or 1-2 hours after breakfast Complies with drug therapyprochlorperazine 10 mg oral tablet (1 source)PhenothiazineStart: 06-31-9434Wkzmsjqrzjukjmkt Maleate 10 mg tablet Active MG PO March 04, 2025 12:00am Complies with drug therapypromethazine (Phenergan) 6.25 mg in sodium chloride 0.9% 50 mL IV (1 source)Start: 46.25 mg, intravenous, Administer over 15 Minutes, Once as needed, Nausea/vomiting, second line, Starting on Sat04/07/24 at 1606, For 1 dose, Recovery (only)rimegepant 75 mg disintegrating oral tablet (1 source)Start: 14-37-7183Emdzhcuwgb (Nurtec Odt) 75 mg tablet,disintegrating Active MG PO March 04, 2025 12:00am Complies with drug therapy sulfamethoxazole 800 mg / trimethoprim 160 mg oral tablet (4 sources)Dihydrofolate Reductase Inhibitor Antibacterial, Sulfonamide AntimicrobialStart: 01-28-2025 End: 31-11-2687cbrt 1 tablet by mouth every twelve hours1 tablet, oral, Every 12 hours scheduled, First dose (after last reorder) on Livia 01/28/25 at 0930, For 4 doses, Indication: UTIStart: 01-27-2025 End: 65-71-4199fysm 1 tablet by mouth oncesulfamethoxazole-trimethoprim (BACTRIM DS) 800-160 mg per tablet Take 1 tablet by mouth every 12 (twelve) hours for 7 days. 14 tablet 01/28/2025 02/04/2025 ActiveSUMAtriptan 100 mg oral tablet (1 source)Serotonin-1b and Serotonin-1d Receptor AgonistStart: 03-04-2025 Sumatriptan Succinate 100 mg tablet Active MG PO March 04, 2025 12:00am Complies with drug therapy Completed/Discontinued Medications MedicationDrug Class(es)DatesSig (Normalized)Sig (Original)amLODIPine 5 mg oral tablet (1 source)Dihydropyridine Calcium Channel Nicki End: 64-14-6130yydx 1 tablet by mouth once dailyamLODIPine (NORVASC) 5 MG tablet Take 5 mg by mouth daily 0 06/13/2020 Discontinued (LIST CLEANUP)atorvastatin 80 mg oral tablet (1 source)HMG-CoA Reductase Inhibitor End: 70-81-5021iyus 1 tablet by mouth once dailyatorvastatin (LIPITOR) 80 MG tablet Take 80 mg by mouth daily 0 06/13/2020 Discontinued (LIST CLEANUP) cefdinir 300 mg oral capsule (1 source)Cephalosporin Antibacterial End: 84-11-1318zavj 1 capsule by mouth twice dailycefdinir (OMNICEF) 300 MG capsule Take 300 mg by mouth 2 times daily 0 10/07/2021 Discontinued (LIST CLEANUP)celecoxib 200 mg oral capsule (4 sources)Nonsteroidal Anti-inflammatory Drug End: 94-70-6626nxno 1 capsule by mouth once dailycelecoxib (CELEBREX) 200 MG capsule Take 200 mg by mouth daily 0 06/13/2020 Discontinued (LIST CLEANUP) cyclobenzaprine hydrochloride 10 mg oral tablet (2 sources)Muscle RelaxantStart: 06-13-2020 End: 31-59-8866qnetrcjrckijukq (FLEXERIL) tablet 10 mgdiazePAM 5 mg/ml injectable solution (1 source)BenzodiazepineStart: 01-27-2025 End: mg, intravenous, Once, On Sat01/27/25 at 1507, For 1 dose, Look-alike/sound-alike medication - verify indication for use.EPINEPHrine 0.01 mg/ml / lidocaine hydrochloride 10 mg/ml injectable solution (1 source)Antiarrhythmic, alpha-Adrenergic Agonist, beta-Adrenergic Agonist, Catecholamine, Amide Local AnestheticStart: 10-07-2021 End: 77-72-3695gyazhzfab-EPINEPHrine 1 %-1:268217 injection 20 mLgadoteridoL (PROHANCE) injection 9.07 mmol 18.14 mL (1 source)Start: 01-28-2025 End: .07 mmol (0.1 mmol/kg 90.7 kg), intravenous, Once in imaging, contrast, MRI, Starting on Sat01/28/25 at 0446, For 1 dose, VESICANT (RED), Indications: magnetic resonance imagingglucagon (rdna) 1 mg injection (1 source)Antihypoglycemic AgentStart: 01-27-2025 End: mg, intramuscular, As needed, low blood sugar, blood glucose less than 70 mg/dL and unconscious or NPO without IV access., Starting on Sat01/27/25 at 2126, If conscious and not NPO, immediately follow with meal tray or high protein (7Grams) snack if tray not available. If NPO, initiate IV 5% Dextr ose/Water at 100 mL/hr and contact prescriber for additional orders. If blood glucose is not greater than 70 mg/dL after initial treatment, repeat treatment. 150 ml glucose 50 mg/ml injection (3 sources)Start: 01-27-2025 End: g, oral, As needed, low blood sugar, blood glucose less than 70 mg/dL, Starting on Sat01/27/25 at 2126, If patient conscious and taking PO. If blood glucose is not greater than 70 mg/dL after initial treatment, repeat treatment.Start: 01-27-2025 End: mL, intravenous, As needed, low blood sugar, blood glucose less than 70 mg/dL and unconscious orNPO with IV access, Starting on Sat01/27/25 at 2126, Push over 1-3 minutes STAT. If conscious and not NPO, immediately follow with meal tray or high protein (7 grams) snack if tray not available. If NPO, initiate 5% dextrose in water at 100 mL/hr and contact prescriber for additional orders. If blood glucose is not greater than 70 mg/dL after initial treatment, repeat treatment. VESICANT (RED) Warning: HYPERTONIC solution. Start: 01-27-2025 End: 31-59-6400qpwd 70 mg intravenously every spgn022 mL/hr, intravenous, Continuous PRN, blood glucose less than 70 mg/dL, Starting on Sat01/27/25 at 2126, For 365 days, Use immediately following dextrose 50% or glucagon treatment for patients who are unconscious or NPO. Contact prescriber for additional orders. If blood glucose is not greater than 70 mg/dL after initial treatment, repeat treatment.guaiFENesin 20 mg/ml oral solution (1 source) End: 71-66-8360ishs 200 mg by mouth three times daily as needed for cough guaiFENesin (ROBITUSSIN) 100 MG/5ML syrup Take 200 mg by mouth 3 times daily as needed for Cough 0 06/13/2020 Discontinued (LIST CLEANUP)hydroCHLOROthiazide 12.5 mg oral capsule (1 source)Thiazide Diuretic End: 20-75-6171vnfr 1 capsule by mouth once dailyhydroCHLOROthiazide (MICROZIDE) 12.5 MG capsule Take 12.5 mg by mouth daily 0 06/13/2020 DiscontinuedhydrOXYzine hydrochloride 25 mg oral tablet (20 sources)AntihistamineStart: 01-27-2025 End: 79-60-4761jpnf 25 mg by mouth once25 mg, oral, Once, On Sat01/27/25 at 1852, For 1 dose, Look-alike/sound-alike medication - verify indication for use. Start: 70-07-3193xndf 1 capsule by mouth four times dailyVistaril 25 mg capsule take 1 capsule by oral route 4 times every day - ActiveStart: 02-11-2024 End: 09-95-6664thnsAURdzhr (ATARAX) 25 mg tablet Take 1 tablet (25 mg total) by mouth. 02/11/2024 ActivelevoFLOXacin 500 mg oral tablet (1 source)Quinolone Antimicrobial End: 64-79-8034wgtu 1 tablet by mouth once dailylevoFLOXacin (LEVAQUIN) 500 MG tablet Take 500 mg by mouth daily 0 10/07/2021 Discontinued (LIST CLEANUP) lidocaine 25 mg/ml / prilocaine 25 mg/ml topical cream (1 source)Antiarrhythmic, Amide Local AnestheticStart: 10-07-2021 End: 92-62-4380dvubpgxfl-prilocaine (EMLA) creamStart: 10-07-2021 End: 64-52-2685zhhvhsjjs-prilocaine (EMLA) cream1 ml LORazepam 2 mg/ml injection (2 sources)BenzodiazepineStart: 10-07-2021 End: 25-24-5233UXJmbtekl (ATIVAN) injection 0.5 mg50 ml magnesium sulfate 40 mg/ml injection (2 sources)Start: 01-27-2025 End: ,000 mg, intravenous, at 25 mL/hr, Administer over 120 Minutes, As needed, Magnesium level 1.7 to 1.9 mg/dL, or Ionized Magnesium level 0.45 to 0.5 mmol/L., Starting on Sat01/27/25 at 2126, Recheck magnesium level 4 hours after infusion complete. With each magnesium result continue the replacement orders as needed.Start: 01-27-2025 End: ,000 mg, intravenous, at 25 mL/hr, Administer over 240 Minutes, As needed, Magnesium level 1.6 mg/dL or less, or Ionized Magnesium level 0.44 mmol/L or less, Starting on Sat01/27/25 at 2126, Recheckmagnesium level 4 hours after infusion complete. With each magnesium result continue the replacement orders as needed.1 ml morphine sulfate 4 mg/ml injection (1 source)Opioid AgonistStart: 01-27-2025 End: mg, intravenous, Once, On Sat01/27/25 at 1507, For 1 dose, Look-alike/sound-alike medication - verify indication for use.nitrofurantoin, macrocrystals 25 mg / nitrofurantoin, monohydrate 75 mg oral capsule (3 sources)Nitrofuran AntibacterialStart: 06-23-2021 End: 45-44-7283yjrr 1 capsule by mouth twice dailynitrofurantoin, macrocrystal- monohydrate, (MACROBID) 100 mg capsule TAKE 1 CAPSULE BY MOUTH TWICE ADAY X 7 DAYS 06/23/2021 01/27/2025 Discontinued (Therapy completed)NON FORMULARY (3 sources) End: 44-91-2471YAM FORMULARY cbd 200 mg 01/27/2025 Discontinued (Ineffective)NON FORMULARY cbd 200 mg ActivePotassium Chloride (1 source)Start: 01-27-2025 End: 85-36-5031fszflxfyl chloride (K-TAB,KLOR-CON) CR tablet 20-40 mEqpovidone- iodine 50 mg/ml topical solution (1 source)AntisepticStart: 04-07-2024 End: 94-72-6610ncxma 1 dose topically onceTopical, Once, On Sat04/07/24 at 1145, For 1 dose, Preprocedure, Nasal darb127 ml sodium chloride 9 mg/ml prefilled syringe (7 sources)Start: 01-28-2025 End: 77-25-321281 mL, intravenous, Once in imaging, line care, MRI, Starting on Livia 01/28/25 at 0446, For 1 doseStart: 01-27-2025 End: mL, intravenous, Every 12 hours scheduled, First dose on Sat01/27/25 at 2128Start: 01-27-2025 End: mL, intravenous, As needed, line care, before and after each intermittent use, Starting on Sat01/27/25 at 2126Start: 01-27-2025 End: 29-72-3087kzcn 20 mL intravenously every hour as hssyiz08 mL/hr, intravenous, Continuous PRN, to maintain patency of lines, Starting on Sat01/27/25 at 2126, For 1 dayStart: 01-27-2025 End: ,000 mL, intravenous, at 1,000 mL/hr, Administer over 60 Minutes, Once, On Sat01/27/25 at 1507, For 1 doseStart: 10-07-2021 End: .9 % sodium chloride IV bolus 2,586 mLStart: .9 % sodium chloride actuat tiotropium 0.0025 mg/actuat metered dose inhaler (1 source)Anticholinergic End: 60-05-1193kmwg 2 puff(s) by inhalation once dailytiotropium (SPIRIVA RESPIMAT) 2.5 MCG/ACT AERS inhaler Inhale 2 puffs into the lungs daily 0 021 Discontinued (LIST CLEANUP)vancomycin (VANCOCIN) 1,500 mg in dextrose 5 % 500 mL IVPB (1 source)Start: 10-07-2021 End: 34-60-6362wmaosfezju (VANCOCIN) 1,500 mg in dextrose 5 % 500 mL IVPB Problems Active Problems Problem ClassificationProblemDateDocumented DateEpisodic/ChronicBlindness and vision defects (4 sources)Blurring of visual image; Translations: [Other visual disturbances] Onset: [id number] kidney disease (1 source)Chronic kidney disease, unspecified; Translations: [CHRONIC KIDNEY DISEASE UNSPECIFIED]Onset: 02-99-2993NnsbpwmJktxhzwykjald of surgical procedures or medical care (20 sources)Pseudarthrosis after fusion or arthrodesis; Translations: [Pseudarthrosis after fusion or arthrodesis]Onset: 58-87-8779WoqyhrwcQwbotwjr of white blood cells (1 source)Leukocytosis; Translations: [Elevated white blood cell count, unspecified]ChronicEssential hypertension (1 source)Essential (primary) hypertension; Translations: [Essential (primary) hypertension]Onset: 16-26-8602PdxvdlgWnunypkpacmop symptoms and ill-defined conditions (13 sources)Retention of urine; Translations: [Retention of urine, unspecified] Onset: 43-74-0931XamtogdrDlhqbhke; including migraine (6 sources)Migraine; Translations: [Migraine, unspecified, not intractable, without status migrainosus]Onset: 947029-38-6181FigdlhoJfofskyj; including migraine (1 source)Headache; Translations: [Chronic nonintractable headache, unspecified headache type]66-48-9958MflewbvqTbgtetomr disorders (4 sources)Dysmenorrhea, unspecified; Translations: [Secondary dysmenorrhea] Onset: 82-92-3989XpxcptjGbqqetufyenynq (20 sources)Localized, secondary osteoarthritis of the ankle and/or foot; Translations: [Secondary osteoarthritis, left ankle and foot]Onset: 04-02-2024 ChronicOther bone disease and musculoskeletal deformities (2 sources)Osteochondritis dissecans of left ankle; Translations: [Osteochondritis dissecans, left ankle and joints of left foot]ChronicOther bone disease and musculoskeletal deformities (1 source)Osteochondritis dissecans; Translations: [Osteochondritis dissecans, unspecified ankle and joints of foot]ChronicOther congenital anomalies (5 sources)Congenital genu valgum of bilateral knees; Translations: [Congenital malformation of knee]Onset: 90-58-3850NreefadMslcc connective tissue disease (1 source)H/O: arthrodesis; Translations: [Arthrodesis status]91-15-5819Dsdhbpoa Other connective tissue disease (2 sources)Fibromyalgia; Translations: [Fibromyalgia]44-96-0186PhxsdrdxBtcoz connective tissue disease (1 source)Fibromyalgia; Translations: [Fibromyalgia]Onset: 26-41-1424Gzftlngu Other connective tissue disease (6 sources)Myalgia, unspecified siteEpisodicOther diseases of bladder and urethra (4 sources)Bladder-neck obstruction; Translations: [BLADDER-NECK OBSTRUCTION] Onset: 46-54-3829JbohselUuvox endocrine disorders (1 source)Empty sella syndrome; Translations: [Other disorders of pituitary gland]02-97-5359SkiqnzkYtlmp liver diseases (5 sources)Steatosis of liver; Translations: [Fatty (change of) liver, not elsewhere classified]Onset: 230127-60-2853OaotrbmSrohp nervous system disorders (1 source)Lesion of sciatic nerve, right lower limb; Translations: [Lesion of sciatic nerve]76-87-4413EhgbqhcPcrti nervous system disorders (12 sources)Causalgia of left lower limbChronicOther nervous system disorders (1 source)Chronic pain; Translations: [Other chronic pain]90-23-3823UmzxmduXuzfn nervous system disorders (1 source)NumbnessOnset: 22-30-7281IvamgxhrJujvm non-traumatic joint disorders (1 source)Polyarthropathy; Translations: [Polyarthritis, unspecified]02-25-2025 ChronicOther non-traumatic joint disorders (1 source)Chronic ankle pain; Translations: [Pain in right ankle and joints of right foot]EpisodicOther non-traumatic joint disorders (8 sources)Ankle pain; Translations: [Pain in right ankle and joints of right foot]Onset: 31-07-2055ImpbshffEmype non-traumatic joint disorders (1 source)Pain of right wrist; Translations: [Pain in right wrist]EpisodicOther non-traumatic joint disorders (2 sources)Hip pain; Translations: [Pain in right hip]87-13-8533WgfguqosTfqwt non-traumatic joint disorders (2 sources)Pain in right hip; Translations: [Pain in joint, pelvic region and thigh]Onset: 090038-33-7597CxgofbduDtdntvnf codes; unclassified (1 source)H/O: miscarriage; Translations: [Personal history of other complications of , childbirth and the puerperium]EpisodicResidual codes; unclassified (2 sources)Pain; Translations: [Pain, unspecified]EpisodicRetinal detachments; defects; vascular occlusion; and retinopathy (5 sources)Retinal dystrophy; Translations: [Unspecified hereditary retinal dystrophy]Onset: 192839-60-0410KcftbpdWigg and subcutaneous tissue infections (1 source)Abscess; Translations: [Cutaneous abscess, unspecified]Episodic Spondylosis; intervertebral disc disorders; other back problems (1 source)Herniation of nucleus pulposus of lumbar intervertebral disc; Translations: [Other intervertebral disc displacement, lumbar region]08-01-2023 ChronicSpondylosis; intervertebral disc disorders; other back problems (4 sources)Low back pain; Translations: [Low back pain, unspecified back pain laterality, unspecified chronicity, unspecified whether sciatica present]Onset: 28-57-2402HvrwpuxlKjsyqpbeqdaw (1 source)Sprain of tibiofibular ligament of left ankle; Translations: [Sprain of tibiofibular ligament of left ankle, sequela]Unclassified (1 source)Strain of left trapezius muscle; Translations: [Trapezius strain, left, initial encounter]Unclassified (1 source)ConsultOnset: 47-70-2714Nmmhqzawznnx (1 source)Loss of VisionOnset: 22-58-0526Mvyitqmymrhm (1 source)Difficulty UrinatingOnset: 16-41-8620Dtzwnsovewgq (1 source)Evaluation of Abnormal Diagnostic TestOnset: 21-30-8570Iepirhxnfcgk (1 source)Head pressure, vision loss, numbness, HTN, fever, abnormal MRIOnset: 95-20-3632Bptbswx tract infections (10 sources)Urinary tract infectious disease; Translations: [Urinary tract infection, site not specified]Onset: 70-52-4200Wjlzcpib Past or Other Problems Problem ClassificationProblemDateDocumented DateEpisodic/ChronicAbdominal pain (1 source)Unspecified abdominal pain; Translations: [UNSPECIFIED ABDOMINAL PAIN] Onset: 53-70-8916MsccangyQsklgqdrvp and other anemia (1 source)Anemia, unspecified; Translations: [ANEMIA UNSPECIFIED]Onset: 26-31-8519DssyaaqgJrfqoitif of teeth and jaw (4 sources)Congenital mandibular hyperplasia; Translations: [Mandibular hyperplasia]Onset: 632409-32-2704ElipspjzMbldq acquired deformities (5 sources)Deformity of lower limb; Translations: [Other specified acquired deformities of unspecified lower leg]Onset: 05-56-1649BduyqcltRowii bone disease and musculoskeletal deformities (5 sources)Disorder of bone; Translations: [Disorder of bone, unspecified]Onset: 74-92-3911PacjisdmFoyxx connective tissue disease (5 sources)Peroneal tendinitis of right lower limb; Translations: [Peroneal tendinitis, right leg]Onset: 49-89-9231ObjshkjoVmqde gastrointestinal disorders (2 sources)Left lower quadrant abdominal swelling, mass and lump; Translations: [Left lower quadrant abdominalswelling, mass and lump]Onset: 91-57-8611Aeynibxa Other nervous system disorders (5 sources)Abnormal gait; Translations: [Unspecified abnormalities of gait and mobility]Onset: 58-36-7943ZkmdsbjrTrhqh non-traumatic joint disorders (1 source)Acute ankle pain; Translations: [Acute left ankle pain]EpisodicOther non-traumatic joint disorders (5 sources)Sinus tarsi syndrome of right ankle; Translations: [Pain in right ankle and joints of right foot]Onset: 80-75-9832KrsngjwxSitjy non-traumatic joint disorders (6 sources)Pain in right ankle and joints of right foot; Translations: [Right ankle pain, unspecified chronicity]Onset: 46-88-5831PcfakugzYyuoc non-traumatic joint disorders (2 sources)Pain in left knee; Translations: [Pain in joint, lower leg]Onset: 531826-77-5744UpvkkgbqYtest non-traumatic joint disorders (1 source)Pain in left ankle and joints of left foot; Translations: [Pain in left ankle and joints of left foot]Onset: 92-12-2710FazwyusuRrxog screening for suspected conditions (not mental disorders or infectious disease) (2 sources)Increased lactic acid level; Translations: [Other specified abnormal findings of blood chemistry]Onset: 17-02-5520PmbmumixKmwehk media and related conditions (20 sources)Otitis media; Translations: [Unspecified nonsuppurative otitis media, unspecified ear]Onset: 459423-53-1888AywlkqrwPhqfasas codes; unclassified (2 sources)Pain, unspecified; Translations: [Pain, unspecified]Onset: 08-10-2024 Episodic Results Test NameValueInterpretationReference RangeFacilityCult,Urineon 02-05-2025 Cult,UrineSpecimen Description .CLEAN CATCH URINE Culture NO SIGNIFICANT GROWTH Report Status FINAL 02/05/2025NoBlanchard Valley Health SystemComment on above: Performed By: #### URC ####[facility] [address] [place], [place] [id number] Lab Director: Bala Borges, [facility] [place] [address] Lab Director: Gage Barraza MDFokindred hospital [facility] – [facility] [id number]-[id number] Blanka Farias 2000 F Date Provider Department Center 02/04/2025 WARD BOND Kaila [facility] No family history on file Level of Service:89020 [place] OFFICE/OUTPATIENT ESTABLISHED [address] StreetMicroscopic Urinalysison 40-28-1416Tjtacdxs LM Ql (Urine sed)TRACEAbnormalNoneBon Veterans Health AdministrationEpithelial cells LM.HPF (Urine sed) [#/Area]10 TO 20[facility] DaytonInterpretation and review of laboratory resultsAbnormalBon SecAvita Health System Ontario HospitalRBC LM.HPF (Urine sed) [#/Area]0 TO 2[facility] DaytonRenal Epithelial, UA0 TO 20 /HPFBon SecAvita Health System Ontario HospitalWBC LM.HPF (Urine sed) [#/Area]0 TO 2[facility] Hospitaly HealthBon SecPeaceHealthy HealthUrinalysison 81-95-8365Mfdcptaqh Ql (U)Negative NEGATIVEBon Secours Paulding County Hospitaly HealthGlucose Test strip (U) [Mass/Vol]Negative NEGATIVE mg/dLBon SecPeaceHealthy HealthHemoglobin Auto test strip Ql (U)Negative NEGATIVEBon Secours Paulding County Hospitaly HealthInterpretation and review of laboratory results AbnormalBon Secours Paulding County Hospitaly HealthKetones (U) [Mass/Vol]NegativeNEGATIVE mg/dLBon SecPeaceHealthy HealthNitrite Ql (U)NegativeNEGATIVEBon Secours Paulding County Hospitaly HealthpH (U) 6.5 [pH]5.0 - 9.0Bon [facility] Hospitaly HealthProtein (U) [Mass/Vol]NegativeNEGATIVE mg/dLBon SecPeaceHealthy HealthSpecific gravity (U) [Rel density]1.0151.010 - 1.020Bon SecEast Jefferson General Hospital HealthUrobilinogen Qn (U)Normal0.0 - 1.0 EU/dLBon [facility] HealthSentara Rmh Medical Centery HealthUrinalysis, Routineon 13-89-2592Jnwgppb (U) SLIGHTLY CLOUDYAbnormalCLEARBon Veterans Health AdministrationComment on above:Performed By: #### PRERNA SHARMA ####[address] , [facility] Lab Director: EMELIA Rickolor (U)Yellow NormalYELBon Veterans Health AdministrationComrehabilitation institute of [place] on above:Performed By: #### PRERNA SHARMA ####[address] , [place] [phone] Director: Gage Barraza MDLeukocyte esterase Test strip Ql (U)SMALL AbnormalNEGBon Veterans Health AdministrationComment on above:Performed By: #### PRERNA SHARMA ####[address] , [facility] Lab Director: Gage Barraza MDBilirubin, SemiQt,UrNegativeNormal NEGMercy Bristol HospitalComment on above:Performed By: #### PRERNA SHARMA ####[address] [place] [address] Lab Director: You Rick, UrineNegativeNormalNEGGrand Lake Joint Township District Memorial [facility] Hospital Comment on above:Performed By: #### UA, UMICAO ####[address] [place] [address] Lab Director: Gage Barraza MDGlucose Ql (U)NegativeNormalNEGMercy Pollok HospitalComment on above:Performed By: #### UA, UMICAO ####[address] [place] [address] Lab Director: Gage Barraza MDKetones Ql (U) NegativeNormalNEGMercy Pollok HospitalComment on above:Performed By: #### UA, UMICAO ####[address] , [place] [address] Lab Director: Silvana Ricktrite,UrNegativeNormalNEGMercy Pollok HospitalComment on above:Performed By: #### UA, UMICAO ####[address] [place] [address] Lab Director: BONNIE Rick,Ur6.8Ggxgep4.0-9.0Mercy Pollok HospitalComment on above: Performed By: #### UA, UMICAO ####[address] [place] [address] Lab Director: BONNIE Rickrotein Ql (U)NegativeNormalNEGMercy Pollok HospitalComment on above:Performed By: #### EDITH, UMICAO ####[address] [place] [address] Lab Director: NASEEM Rickpec. [place],Ur1.015Normal 1.010-1.020Mercy Pollok HospitalComment on above:Performed By: #### UA, UMICAO ####[address] [place] [phone] Director: Gage Barraza MDUrobilinogen,UrNormalNormal0.0-1.0Mercy [facility]ok HospitalComment on above:Performed By: #### UA, UMICAO ####[address] [place] [address] Lab Director: Gage Barraza MDUrinalysis,Microon 74-93-8858UndbfoqlRGEAMRtffptqqTOHDIzxhn [facility] HospitalComment on above:Performed By: #### UA, UMICAO ####[address] [place] [address] Lab Director: Gage Barraza MDEpithelial cells LM Ql (Urine sed)10 TO 28Uzxceh7-03Wsxdj [facility] HospitalComment on above:Performed By: #### UA, UMICAO ####[address] , [place] [phone] Director: Gage Barraza MDEpithelial, Renal0 TO 6Dkcypa9Xsice [facility] HospitalComment on above: Performed By: #### UA, UMICAO ####[address] [place] [address] Lab Director: Gage Barraza MDUrine RBC's0 TO 5Eiihtg8-7Kvcbl [facility] HospitalComment on above:Performed By: #### UA, UMICAO ####[address] , [place] [address] Lab Director: Gage Barraza MDUrine WBC's0 TO 7Gyhdvo1-1Igsfk [facility] HospitalComment on above:Performed By: #### UA, UMICAO ####[address] [place] [address] Lab Director: EMELIA RickBC WITH AUTO DIFFERENTIALon 83-70-6464GXJKTWHRA ABSOLUTE COUNT (10*3/UL) BY AUTOMATED COUNT0.1 10*3/uLNormal0.0-0.2[facility] Comment on above:Performed By: #### TNIHS0 #### [facility] ([facility]) [address] [place] [address] VIRBASOPHILS RELATIVE PERCENT BY AUTOMATED COUNT0.6 %Normal [facility] HospitalComment on above:Performed By: #### TNIHS0 #### [facility] ([facility]) [address] [place] [address] VIRCELLAVISION DIFFERENTIAL TYPEAUTOMATED DIFFERENTIALNormal St. [facility] of God HospitalComment on above:Performed By: #### TNIHS0 #### [facility] ([facility]) [address] [place] [address] VIREosinophils (Bld) [#/Vol]0.1 10*3/uLNormal0.0-0.4ProFostoria City Hospitalca [place] HospitalComment on above:Performed By: #### TNIHS0 #### [facility] ([facility]) [address] [place] [address] VIREOSINOPHILS RELATIVE PERCENT BY AUTOMATED COUNT1.0 %Normal [facility] HospitalComment on above:Performed By: #### TNIHS0 #### [facility] ([facility]) [address] [place] [address] VIRErythrocyte distribution width (RBC) [Ratio]16.3 %High 11.5-15ProFostoria City Hospitalca [facility] HospitalComment on above:Performed By: #### TNIHS0 #### [facility] ([facility]) [address] [place] [address] VIRHematocrit (Bld) [Volume fraction]37.1 %Rixnie28-97QspCvgqea [place] HospitalComment on above:Performed By: #### TNIHS0 #### [facility] ([facility]) [address] [place] [address] VIRHemoglobin (Bld) [Mass/Vol]12.6 g/hRPxhqwc64.7-15.5PPike Community Hospital HospitalComment on above:Performed By: #### TNIHS0 #### [facility] ([facility]) [address] [place] [address] VIRLYMPHOCYTES ABSOLUTE COUNT (10*3/UL) BY AUTOMATED COUNT1.9 10*3/uLNormal1.0-3.5PPike Community Hospital HospitalComment on above:Performed By: #### TNIHS0 #### [facility] ([facility]) [address] [place] [address] VIRLYMPHOCYTES RELATIVE PERCENT BY AUTOMATED COUNT17.7 %Normal ProMCleveland Clinic [facility]uclid Hospital HospitalComment on above:Performed By: #### TNIHS0 #### [facility] ([facility]) [address] [place] [address] VIRMCH (RBC) [Entitic mass]27.3 mmUopqxc64-29RqzRirhqo [place] HospitalComment on above:Performed By: #### TNIHS0 #### [facility] ([facility]) [address] [place] [address] VIRMCHC (RBC) [Mass/Vol]33.9 g/qMAcukyv08-73XpzRnitvf [place] HospitalComment on above:Performed By: #### TNIHS0 #### [facility] ([facility]) [address] [place] [address] VIRMCV (RBC) [Entitic vol]81 zFBbknqg85-399PdvGaenna [place] HospitalComment on above:Performed By: #### TNIHS0 #### [facility] ([facility]) [address] [place] [address] VIRMONOCYTES ABSOLUTE COUNT (10*3/UL) BY AUTOMATED COUNT0.8 10*3/uLNormal0.0-0.9ProFostoria City Hospitalca [facility] HospitalComment on above:Performed By: #### TNIHS0 #### [facility] ([facility]) [address] [place] [address] VIRMONOCYTES RELATIVE PERCENT BY AUTOMATED COUNT7.3 %Normal [facility] HospitalComment on above:Performed By: #### TNIHS0 #### [facility] ([facility]) [address] [place] [address] VIRNEUTROPHILS ABSOLUTE COUNT BY AUTOMATED COUNT7.8 10*3/uLHigh 1.5-6.6[facility] [place] HospitalComment on above:Performed By: #### TNIHS0 #### [facility] ([facility]) [address] [place] [address] VIRNEUTROPHILS RELATIVE PERCENT BY AUTOMATED COUNT73.4 %Normal [facility] HospitalComment on above:Performed By: #### TNIHS0 #### [facility] ([facility]) [address] [place] [address] VIRPlatelet mean volume (Bld) [Entitic vol]8.3 fLNormal7-12 [facility] HospitalComment on above:Performed By: #### TNIHS0 #### [facility] ([facility]) [address] [place] [address] VIRPlatelets (Bld) [#/Vol]317 10*3/iZPnjixb481-466EkqGflohc [facility] HospitalComment on above:Performed By: #### TNIHS0 #### [facility] ([facility]) [address] [place] [address] VIRRBC COUNT4.60 X10E12/LNormal3.8-5.2[facility] Comment on above:Performed By: #### TNIHS0 #### [facility] ([facility]) [address] [place] [address] VIRWBC (Bld) [#/Vol]10.6 10*3/uLNormal4-11[facility] HospitalComment on above:Performed By: #### TNIHS0 #### [facility] ([facility]) [address] [place] [address] [facility] auto differentialon 37-54-5061Sucvggmwp (Bld) [#/Vol]0.1 10*3/uL0.0 - 0.2 10*3/uLPremier Health Miami [facility] Hospital [facility] SystemBasophils/100 WBC (Bld)0.6 % [facility] HospitalDifferential cell count method Nom (Bld)AUTOMATED DIFFERENTIALSheltering Arms HospitalEosinophils (Bld) [#/Vol]0.1 10*3/uL0.0 - 0.4 10*3/uLSheltering Arms HospitalEosinophils/100 WBC (Bld)1 %[facility] HospitalErythrocyte distribution width (RBC) [Ratio]16.3 %High11.5 - 15 %[facility] HospitalHematocrit (Bld) [Volume fraction]37.1 %35 - 47 %[facility] HospitalHemoglobin (Bld) [Mass/Vol]12.6 g/dL11.7 - 15.5 g/dLSheltering Arms HospitalInterpretation and review of laboratory resultsAbnormalSheltering Arms HospitalLymphocytes (Bld) [#/Vol]1.9 10*3/uL1.0 - 3.5 10*3/uLSheltering Arms HospitalLymphocytes/100 WBC (Bld)17.7 %[facility] HospitalMCH (RBC) [Entitic mass]27.3 pg27 - 34 pgPSelect Medical [facility] Rehabilitation Hospital - DublinMCHC (RBC) [Mass/Vol]33.9 g/dL32 - 36 g/dLSheltering Arms HospitalMCV (RBC) [Entitic vol]81 fL80 - 100 [facility] WashingtonMonocytes (Bld) [#/Vol]0.8 10*3/uL0.0 - 0.9 10*3/uLSheltering Arms HospitalMonocytes/100 WBC (Bld)7.3 %[facility] HospitalNeutrophils (Bld) [#/Vol]7.8 10*3/uLHigh1.5 - 6.6 10*3/uLSheltering Arms HospitalNeutrophils/100 WBC (Bld)73.4 %[facility] SystemPlatelet mean volume (Bld) [Entitic vol] 8.3 fL7 - 12 [facility] SystemPlatelets (Bld) [#/Vol]317 10*3/uL [facility] SystemRBC (Bld) [#/Vol]4.6 10*6/uLSheltering Arms HospitalWBC LM Ql (Sput)10.6[facility] Eastern PennsylvaniaCOMPREHENSIVE METABOLIC PANELon 41-21-2453Rblfmij [Mass/Vol]4.3 g/dLNormal3.2-5.3PPike Community Hospital HospitalComment on above:Performed By: #### [email or web address] #### [facility] ([facility]) [address] [place] [address] VIRALP [Catalytic activity/Vol]58 U/PGrsjrg87-122ZjtMxzmtw [place] HospitalComment on above:Performed By: #### TNIHS0 #### [facility] ([facility]) [address] [place] [address] VIRALT [Catalytic activity/Vol]14 U/LNormal<=31PPike Community Hospital HospitalComment on above:Performed By: #### TNIHS0 #### [facility] ([facility]) [address] [place] [address] VIRAnion gap [Moles/Vol]9 mmol/LNormal5-15ProCleveland Clinic HospitalComment on above:Performed By: #### TNIHS0 #### [facility] ([facility]) [address] [place] [address] VIRAST [Catalytic activity/Vol]21 U/LNormal<=41ProCleveland Clinic HospitalComment on above:Performed By: #### TNIHS0 #### [facility] ([facility]) [address] [place] [address] VIRBilirubin [Mass/Vol]0.6 mg/dLNormal0.3-1.2PPike Community Hospital HospitalComment on above:Performed By: #### TNIHS0 #### [facility] ([facility]) [address] [place] [address] VIRCalcium [Mass/Vol]9.0 mg/dLNormal8.5-10.5PPike Community Hospital HospitalComment on above:Performed By: #### TNIHS0 #### [facility] ([facility]) [address] [place] [address] VIRChloride [Moles/Vol]109 mmol/XJokast00-478IscKghxyb [place] HospitalComment on above:Performed By: #### TNIHS0 #### [facility] ([facility]) [address] [place] [address] VIRCO2 [Moles/Vol]23 mmol/YLphlxl46-26JhtJwgesd [facility] Comment on above:Performed By: #### TNIHS0 #### [facility]) [address] [place] [address] VIRCreatinine [Mass/Vol]0.70 mg/dLNormal0.40-1.00ProCleveland Clinic HospitalComment on above:Result Comment: METHOD TRACEABLE TO IDMS STANDARDPerformed By: #### TNIHS0 #### [facility] ([facility]) [address] [place] [address] VIREGFR (CKD-EPI) NON-RACE DEPENDENT>^90Normal>=60ProCleveland Clinic HospitalComment on above:Result Comment: Reported eGFR is based on the CKD-EPI 2020 equation that does not use a race coefficient.Performed By: #### [email or web address] #### [facility] ([facility]) [address] [place] [address] VIRGlucose [Mass/Vol]99 mg/yFVojoau64-74CooKcxpju [place] HospitalComment on above:Performed By: #### TNIHS0 #### [facility] ([facility]) [address] [place] [address] VIRPotassium [Moles/Vol]4.2 mmol/LNormal3.5-5.0ProCleveland Clinic HospitalComment on above:Performed By: #### TNIHS0 #### [facility] ([facility]) [address] [place] [address] VIRProtein [Mass/Vol]7.1 g/dLNormal6.0-8.0ProCleveland Clinic HospitalComment on above:Performed By: #### TNIHS0 #### [facility] ([facility]) [address] [place] [address] VIRSodium [Moles/Vol]141 mmol/TDtghww380-572KgvXhrstb [place] HospitalComment on above:Performed By: #### TNIHS0 #### [facility]) [address] [place] [address] VIRUrea nitrogen [Mass/Vol]9 mg/dLNormal5-23ProCleveland Clinic HospitalComment on above:Performed By: #### [email or web address] #### [facility]) [address] [place] [address] VIRComprehensive metabolic panelon 37-88-1750Nmngunt [Mass/Vol] 4.3 g/dL3.2 - 5.3 g/dLProMedica Health SystemALP [Catalytic activity/Vol]58 U/L 39 - 130 U/LProMedica Health SystemALT No additional P-5'-P [Catalytic activity/Vol]14 U/LNINF - 31 U/LProMedica Health SystemAnion gap [Moles/Vol]9 mmol/L5 - 15 mmol/LProMedica Health SystemAST [Catalytic activity/Vol]21 U/LNINF - 41 U/LProMedica Health SystemBilirubin [Mass/Vol]0.6 mg/dL0.3 - 1.2 mg/dL [facility] Health SystemCalcium [Mass/Vol]9 mg/dL8.5 - 10.5 mg/dLProMedica Health SystemChloride [Moles/Vol]109 mmol/L98 - 109 mmol/LPrTrinity Health System SystemCO2 [Moles/Vol]23 mmol/L22 - 32 mmol/[facility] SystemCreatinine [Mass/Vol] 0.7 mg/dL0.40 - 1.00 mg/dLSheltering Arms HospitalComment on above:METHOD TRACEABLE TO IDMS STANDARDEGFR Non-Race Dependent- [facility] Comment on above:Reported eGFR is based on the CKD-EPI 2020 equation that does not use a race coefficient. Glucose [Mass/Vol]99 mg/dL65 - 99 mg/dLSheltering Arms HospitalInterpretation and review of laboratory resultsNormalSheltering Arms HospitalPotassium [Moles/Vol] 4.2 mmol/L3.5 - 5.0 mmol/[facility] SystemProtein [Mass/Vol]7.1 g/dL6.0 - 8.0 g/dLWatauga Medical Centerodium [Moles/Vol]141 mmol/L134 - 146 mmol/L [facility] HospitalUrea nitrogen [Mass/Vol]9 mg/dL5 - 23 mg/dLHaven Behavioral Hospital of Eastern PennsylvaniaMR BRAIN W WO CONTon [id number] BRAIN W WO CONTMR BRAIN W WO CONT STUDY: MRI brain with without contrast . CLINICAL HISTORY: headache COMPARISON: None. Procedure: Multiplanar, multisequence imaging performed through the brain, including pre and post contrast T1 weighted images using IV contrast. Findings: Moderate brain atrophy There is an empty sella which can be physiologic] can be seen with idiopathic intracranial hypertension and findings best assessed in combination with other clinical data There are no intracranial masses, mass-effect, extra-axial fluid collection, or hydrocephalus. Sensitivity for acute hemorrhage limited on MRI, but grossly no acute hemorrhage identified. Midline sagittal structures are unremarkable including pituitary fossa, infundibulum, optic chiasm,corpus callosum, brainstem, fourth ventricle, cerebellum, and cranio-cervical junction. Flow voids documented in [place] and dural venous sinuses. No pathologic contrast enhancement. Diffusion weighted images show no evidence for acute infarct. The deep white matter shows no acute changes. IMPRESSION: Moderate brain atrophy There is an empty sella which can be physiologic but can be seen with idiopathic intracranial hypertension and findings best assessed in combination with other clinical data * Finalized by Shane Graves MD on 01/28/2025 5:34 [facility] MR Brain WO and W contrast Aleksandr 01-28-2025 STUDY: MRI brain with without contrast . CLINICAL HISTORY: headache COMPARISON: None. Procedure: Multiplanar, multisequence imaging performed through the brain, including pre and post contrast T1 weighted images using IV contrast. Findings: Moderate brain atrophy There is an empty sella which can be physiologic] can be seen with idiopathic intracranial hypertension and findings best assessed in combination with other clinical data There are no intracranial masses, mass-effect, extra-axial fluid collection, or hydrocephalus. Sensitivity for acute hemorrhage limited on MRI, but grossly no acute hemorrhage identified. Midline sagittal structures are unremarkable including pituitary fossa, infundibulum, optic chiasm,corpus callosum, brainstem, fourth ventricle, cerebellum, and cranio-cervical junction. Flow voids documented in [place] and dural venous sinuses. No pathologic contrast enhancement. Diffusion weighted images show no evidence for acute infarct. The deep white matter shows no acute changes. IMPRESSION: Moderate brain atrophy There is an empty sella which can be physiologic but can be seen with idiopathic intracranial hypertension and findings best assessed in combination with other clinical data * Finalized by Shane Graves MD on 01/28/2025 5:34 Shane Belcher MD - 01/28/2025 STUDY: MRI brain with without contrast . CLINICAL HISTORY: headache COMPARISON: None. Procedure: Multiplanar, multisequence imaging performed through the brain, including pre and post contrast T1 weighted images using IV contrast. Findings: Moderate brain atrophy There is an empty sella which can be physiologic] can be seen with idiopathic intracranial hypertension and findings best assessed in combination with other clinical data There are no intracranial masses, mass-effect, extra-axial fluid collection, or hydrocephalus. Sensitivity for acute hemorrhage limited on MRI, but grossly no acute hemorrhage identified. Midline sagittal structures are unremarkable including pituitary fossa, infundibulum, optic chiasm,corpus callosum, brainstem, fourth ventricle, cerebellum, and cranio-cervical junction. Flow voids documented in [place] and dural venous sinuses. No pathologic contrast enhancement. Diffusion weighted images show no evidence for acute infarct. The deep white matter shows no acute changes. IMPRESSION: Moderate brain atrophy There is an empty sella which can be physiologic but can be seen with idiopathic intracranial hypertension and findings best assessed in combination with other clinical data * Finalized by Shane Graves MD on 01/28/2025 5:34 AM [facility] HospitalRadiology Study observation (narrative)[facility] HospitalMR Brain WO and W contrast IVOrdered By: Shane Graves on 01-28-2025 [facility] HospitalUS [facility] MEDIC[facility] Work Phone: MR MRV HEAD W WO CONTon [id number] MRV HEAD W WO CONTMR MRV HEAD W WO CONT MR MRV HEAD W WO CONT CLINICAL INDICATION:headache COMPARISON: None TECHNIQUE: Routine noncontrast, jluk-ms-abvubs, MR venogram was performed. Maximum intensity projection volumetric reformatted images were generated. Postcontrast 3-D MPRAGE. FINDINGS: Narrowed distal transverse sinuses bilaterally. Patent superior sagittal sinus, transverse sinuses,sigmoid sinuses and proximal internal jugular veins. Symmetric cortical venous enhancement. Expanded sella with flat pituitary. CSF engorged optic nerve sheaths IMPRESSION: Venous morphologic and other anatomic features suggestive of intracranial hypertension. Please correlate clinically. Patent dural venous sinuses. Finalized by Jonathan Pang MD on 01/28/2025 5:48 AMNormalSt. John of God HospitalMRA Head veins WO and W contrast Aleksandr [id number] MRV HEAD W WO CONT CLINICAL INDICATION:headache COMPARISON: None TECHNIQUE: Routine noncontrast, kpbo-ot-hshnzt, MR venogram was performed. Maximum intensity projection volumetric reformatted images were generated. Postcontrast 3-D MPRAGE. FINDINGS: Narrowed distal transverse sinuses bilaterally. Patent superior sagittal sinus, transverse sinuses,sigmoid sinuses and proximal internal jugular veins. Symmetric cortical venous enhancement. Expanded sella with flat pituitary. CSF engorged optic nerve sheaths IMPRESSION: Venous morphologic and other anatomic features suggestive of intracranial hypertension. Please correlate clinically. Patent dural venous sinuses. Finalized by Jonathan Pang MD on 01/28/2025 5:48 Jonathan Cote MD - 01/28/2025 MR MRV HEAD W WO CONT CLINICAL INDICATION:headache COMPARISON: None TECHNIQUE: Routine noncontrast, ngqg-zu-wkimkt, MR venogram was performed. Maximum intensity projection volumetric reformatted images were generated. Postcontrast 3-D MPRAGE. FINDINGS: Narrowed distal transverse sinuses bilaterally. Patent superior sagittal sinus, transverse sinuses,sigmoid sinuses and proximal internal jugular veins. Symmetric cortical venous enhancement. Expanded sella with flat pituitary. CSF engorged optic nerve sheaths IMPRESSION: Venous morphologic and other anatomic features suggestive of intracranial hypertension. Please correlate clinically. Patent dural venous sinuses. Finalized by Jonathan Pang MD on 01/28/2025 5:48 AM [facility] HospitalCloudVolumes Veterans Affairs Medical CenterRadiology Study observation (narrative)[facility] HospitalMRA Head veins WO and W contrast IVOrdered By: Jonathan Pang on 01-28-2025 [facility] HospitalUS PREVENTIVE MEDICINE Work Phone: URINE CULTUREon [id number] identified Cx Nom (U)CULTURE RESULTS 50-100,000 ORGANISMS/mL NORMAL UROGENITAL FLORANormalProMedica [facility] Comment on above:Performed By: #### [email or web address] #### [facility] ([facility]) [address] [place] [address] VIRCBC WITH AUTO DIFFERENTIALon [id number] ABSOLUTE COUNT (10*3/UL) BY AUTOMATED COUNT0.1 10*3/uLNormal0.0-0.2Pro[facility] Hospital - DublinComment on above:Performed By: #### CBCA #### [facility] ([facility]) [address] [place] [address] VIRBASOPHILS RELATIVE PERCENT BY AUTOMATED COUNT0.6 %Normal [facility] of God HospitalComment on above:Performed By: #### CBCA #### [facility] ([facility]) [address] [place] [address] VIRCELLAVISION DIFFERENTIAL TYPEAUTOMATED DIFFERENTIALNormal St. John of God HospitalComment on above:Performed By: #### CBCA #### [facility] ([facility]) [address] [place] [address] VIREosinophils (Bld) [#/Vol]0.1 10*3/uLNormal0.0-0.4ProMedica [facility] HospitalComment on above:Performed By: #### CBCA #### [facility] ([facility]) [address] [place] [address] VIREOSINOPHILS RELATIVE PERCENT BY AUTOMATED COUNT0.7 %Normal ProMCleveland Clinic [facility]uclid Hospital HospitalComment on above:Performed By: #### CBCA #### [facility] ([facility]) [address] [place] [address] VIRErythrocyte distribution width (RBC) [Ratio]16.6 %High 11.5-15ProCleveland Clinic HospitalComment on above:Performed By: #### CBCA #### [facility] ([facility]) [address] [place] [address] VIRHematocrit (Bld) [Volume fraction]39.2 %Witkpw18-89AcpYfwvij [facility] HospitalComment on above:Performed By: #### CBCA #### [facility] ([facility]) [address] [place] [address] VIRHemoglobin (Bld) [Mass/Vol]13.2 g/vWQxexmq95.7-15.5ProMedMercer County Community Hospital HospitalComment on above:Performed By: #### CBCA #### [facility] ([facility]) [address] [place] [address] VIRLYMPHOCYTES ABSOLUTE COUNT (10*3/UL) BY AUTOMATED COUNT1.8 10*3/uLNormal1.0-3.5ProMedMercer County Community Hospital HospitalComment on above:Performed By: #### CBCA #### [facility] ([facility]) [address] [place] [address] VIRLYMPHOCYTES RELATIVE PERCENT BY AUTOMATED COUNT14.9 %Normal ProMCleveland Clinic [facility]uclid Hospital HospitalComment on above:Performed By: #### CBCA #### [facility] ([facility]) [address] [place] [address] VIRMCH (RBC) [Entitic mass]27.4 wzUvtexo47-86IzuGbgxyb [facility] HospitalComment on above:Performed By: #### CBCA #### [facility] ([facility]) [address] [place] [address] VIRMCHC (RBC) [Mass/Vol]33.7 g/xKUhsvfr88-75RztMsmvmp [facility] HospitalComment on above:Performed By: #### CBCA #### [facility] ([facility]) [address] [place] [address] VIRMCV (RBC) [Entitic vol]81 bXXltykj45-997KysHspkqg [facility] HospitalComment on above:Performed By: #### CBCA #### [facility] ([facility]) [address] [place] [address] VIRMONOCYTES ABSOLUTE COUNT (10*3/UL) BY AUTOMATED COUNT0.8 10*3/uLNormal0.0-0.9ProFostoria City Hospitalca [facility] HospitalComment on above:Performed By: #### CBCA #### [facility] ([facility]) [address] [place] [address] VIRMONOCYTES RELATIVE PERCENT BY AUTOMATED COUNT6.3 %Normal [facility] [place] [facility] HospitalComment on above:Performed By: #### CBCA #### [facility] ([facility]) [address] [place] [address] VIRNEUTROPHILS ABSOLUTE COUNT BY AUTOMATED COUNT9.3 10*3/uLHigh 1.5-6.6ProFostoria City Hospitalca [facility] HospitalComment on above:Performed By: #### CBCA #### [facility] ([facility]) [address] [place] [address] VIRNEUTROPHILS RELATIVE PERCENT BY AUTOMATED COUNT77.5 %Normal [facility] HospitalComment on above:Performed By: #### CBCA #### [facility] ([facility]) [address] [place] [address] VIRPlatelet mean volume (Bld) [Entitic vol]8.[address]LNormal7-12 [address] [facility] HospitalComment on above:Performed By: #### CBCA #### [facility] ([facility]) [address] [place] [address] VIRPlatelets (Bld) [#/Vol]378 10*3/oRQnqgfb069-300FzfHybnob [place] HospitalComment on above:Performed By: #### CBCA #### [facility] ([facility]) [address] [place] [address] VIRRBC COUNT4.81 X10E12/LNormal3.8-5.2POhioHealth Shelby Hospital Comment on above:Performed By: #### CBCA #### [facility] ([facility]) [address] [place] [address] VIRWBC (Bld) [#/Vol]12.0 10*3/uLHigh4-11St. [facility] of God HospitalComment on above:Performed By: #### CBCA #### [facility] ([facility]) [address] [place] [address] VIRCBC auto differentialon [id number] (Bld) [#/Vol]0.1 10*3/uL0.0 - 0.2 10*3/uLPremier Health Miami Valley Hospital North SystemBasophils/100 WBC (Bld)0.6 % [facility] HospitalDifferential cell count method Nom (Bld)AUTOMATED DIFFERENTIALSheltering Arms HospitalEosinophils (Bld) [#/Vol]0.1 10*3/uL0.0 - 0.4 10*3/uLSheltering Arms HospitalEosinophils/100 WBC (Bld)0.7 %[facility] HospitalErythrocyte distribution width (RBC) [Ratio]16.6 %High11.5 - 15 %[facility] HospitalHematocrit (Bld) [Volume fraction]39.2 %35 - 47 %[facility] HospitalHemoglobin (Bld) [Mass/Vol]13.2 g/dL11.7 - 15.5 g/dLSheltering Arms HospitalInterpretation and review of laboratory resultsAbnormalSheltering Arms HospitalLymphocytes (Bld) [#/Vol]1.8 10*3/uL1.0 - 3.5 10*3/uLSheltering Arms HospitalLymphocytes/100 WBC (Bld)14.9 %Memorial HospitalH (RBC) [Entitic mass]27.4 pg27 - 34 [facility] Medical CenterMCHC (RBC) [Mass/Vol]33.7 g/dL32 - 36 g/dLSheltering Arms HospitalMCV (RBC) [Entitic vol]81 fL80 - 100 [facility] WashingtonMonocytes (Bld) [#/Vol]0.8 10*3/uL0.0 - 0.9 10*3/uLSheltering Arms HospitalMonocytes/100 WBC (Bld)6.3 %[facility] HospitalNeutrophils (Bld) [#/Vol]9.3 10*3/uLHigh1.5 - 6.6 10*3/uLSheltering Arms HospitalNeutrophils/100 WBC (Bld)77.5 %[facility] HospitalPlatelet mean volume (Bld) [Entitic vol] 8.3 fL7 - 12 [facility] WashingtonPlatelets (Bld) [#/Vol]378 10*3/uL [facility] HospitalRBC (Bld) [#/Vol]4.81 10*6/uLSheltering Arms HospitalWBC LM Ql (Sput)12Reading HospitalCOMPREHENSIVE METABOLIC PANELon [id number] [Mass/Vol]4.7 g/dLNormal3.2-5.3POhioHealth Shelby HospitalComment on above:Performed By: #### CMP #### [facility] ([facility]) [address] [place] [address] VIRALP [Catalytic activity/Vol]59 U/JNcxaim72-772MssUbovesSt. John of God HospitalComment on above:Performed By: #### CMP #### [facility] ([facility]) [address] [place] [address] VIRALT [Catalytic activity/Vol]18 U/LNormal<=31[facility] [place] HospitalComment on above:Performed By: #### CMP #### [facility] ([facility]) [address] [place] [address] VIRAnion gap [Moles/Vol]5 mmol/LNormal5-15[facility] [place] HospitalComment on above:Performed By: #### CMP #### [facility] ([facility]) [address] [place] [address] VIRAST [Catalytic activity/Vol]35 U/LNormal<=41Pro[facility] [place] HospitalComment on above:Performed By: #### CMP #### [facility] ([facility]) [address] [place] [address] VIRBilirubin [Mass/Vol]0.6 mg/dLNormal0.3-1.2Pro[facility]ica [place] HospitalComment on above:Performed By: #### CMP #### [facility] ([facility]) [address] [place] [address] VIRCalcium [Mass/Vol]9.5 mg/dLNormal8.5-10.5ProMedica [place] HospitalComment on above:Performed By: #### CMP #### [facility] ([facility]) [address] [place] [address] VIRChloride [Moles/Vol]106 mmol/ABjbsvv91-646RdgCeqzhx [place] HospitalComment on above:Performed By: #### CMP #### [facility] ([facility]) [address] [place] [address] VIRCO2 [Moles/Vol]27 mmol/BAkmtzt93-85EyzZwfjbv [place] [facility] Comment on above:Performed By: #### CMP #### [facility] ([facility]) [address] [place] [address] VIRCreatinine [Mass/Vol]0.72 mg/dLNormal0.40-1.00Pro[facility]ica [place] HospitalComment on above:Result Comment: METHOD TRACEABLE TO IDMS STANDARDPerformed By: #### CMP #### [facility] ([facility]) [address] [place] [address] VIREGFR (CKD-EPI) NON-RACE DEPENDENT>^90Normal>=60ProMedica [place] HospitalComment on above:Result Comment: Reported eGFR is based on the CKD-EPI 2020 equation that does not use a race coefficient.Performed By: #### CMP #### [facility] ([facility]) [address] [place] [address] VIRGlucose [Mass/Vol]90 mg/kCUwagbt75-15IjhTrdizi [facility] HospitalComment on above:Performed By: #### CMP #### [facility] ([facility]) [address] [place] [address] VIRPotassium [Moles/Vol]4.7 mmol/LNormal3.5-5.0Pro[facility]ica [place] HospitalComment on above:Result Comment: R-Specimen moderately hemolyzed, results increasedPerformed By: #### CMP #### [facility] ([facility]) [address] [place] [address] VIRProtein [Mass/Vol]8.2 g/dLHigh6.0-8.0Pro[facility]ica [place] HospitalComment on above:Performed By: #### CMP #### [facility] ([facility]) [address] [place] [address] VIRSodium [Moles/Vol]138 mmol/YPaangk177-354GzpSsdjws [facility] HospitalComment on above:Performed By: #### CMP #### [facility] ([facility]) [address] [place] [address] VIRUrea nitrogen [Mass/Vol]11 mg/dLNormal5-23Pro[facility]ica [place] HospitalComment on above:Performed By: #### CMP #### [facility] ([facility]) [address] [place] [address] VIRComprehensive metabolic panelon [id number] [Mass/Vol] 4.7 g/dL3.2 - 5.3 g/dLProEncompass Health Rehabilitation Hospital Of North Alabama Health SystemALP [Catalytic activity/Vol]59 U/L 39 - 130 U/LProMedica Health SystemALT No additional P-5'-P [Catalytic activity/Vol]18 U/LNINF - 31 U/LProMedica Health SystemAnion gap [Moles/Vol]5 mmol/L5 - 15 mmol/LProMedica Health SystemAST [Catalytic activity/Vol]35 U/LNINF - 41 U/LProMedica Health SystemBilirubin [Mass/Vol]0.6 mg/dL0.3 - 1.2 mg/dL ProMWoodwinds Health Campus SystemCalcium [Mass/Vol]9.5 mg/dL8.5 - 10.5 mg/dLProFostoria City Hospitalca Health SystemChloride [Moles/Vol]106 mmol/L98 - 109 mmol/LProMedica Health SystemCO2 [Moles/Vol]27 mmol/L22 - 32 mmol/LPrSoutheast Missouri Hospitalica Health SystemCreatinine [Mass/Vol]0.72 mg/dL0.40 - 1.00 mg/dLPremier Health Miami Valley Hospital North SystemComment on above: METHOD TRACEABLE TO IDMS STANDARDEGFR Non-Race Dependent- [facility] SystemComment on above:Reported eGFR is based on the CKD-EPI 2020 equation that does not use a race coefficient. Glucose [Mass/Vol]90 mg/dL65 - 99 mg/dLPremier Health Miami Valley Hospital North SystemInterpretation and review of laboratory resultsAbnormalPremier Health Miami Valley Hospital North SystemPotassium [Moles/Vol]4.7 mmol/L3.5 - 5.0 mmol/LProMedica Health SystemComment on above:R- Specimen moderately hemolyzed, results increasedProtein [Mass/Vol]8.2 g/dLHigh 6.0 - 8.0 g/dLProEncompass Health Rehabilitation Hospital Of [facility] Alabama Health SystemSodium [Moles/Vol]138 mmol/L134 - 146 mmol/LProMedica Health SystemUrea nitrogen [Mass/Vol]11 mg/dL5 - 23 mg/dL [facility] SystemECG 12 leadOrdered By: Slim Sebastian on [id number] Arms HospitalEr Extra Urineon 67-98-9366Nceto Tube Auto [facility] KannapolisLight Blue Topon [id number] TubeAuto [facility] System MR TRA RADIOLOGIST OVERREADon [id number] TRA RADIOLOGIST OVERREADMR TRA RADIOLOGIST OVERREAD Outside Study: MRI OF THE THORACIC SPINE WITHOUT CONTRAST CLINICAL HISTORY: Neck and back pain COMPARISON: None. TECHNIQUE: Multiplanar MRI of the thoracic spine without contrast.. Initial study performed on 01/15/2025 at [facility]. Second opinion was requested by Dr. Sharona Oliveros. FINDINGS: There is no malalignment of the thoracic spine. There is no loss of the vertebral body or disc space heights. There are small nonaggressive degenerative Schmorl's nodes within the mid to lower thoracic spine. There are no discrete worrisome bone marrow signal abnormalities. There is no evidence of bone marrow edema. There are no convincing signal abnormalities of the thoracic cord. Disc space levels: At T6-T7, there is a tiny central disc protrusion barely indenting thecal sac. At T8-T9, there is a very tiny right paracentral disc protrusion barely flattening the thecal sac. At T11-T12, there is a minimal disc bulge flattening the thecal sac. There is no evidence of canal stenosis, neural foraminal stenosis, or focal nerve impingement within the thoracic spine. IMPRESSION: 1. 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 There is no evidence ofcanal stenosis, neural foraminal stenosis, or focal nerve impingement. PLEASE NOTE: Our interpretation of studies performed at an outside institution is limited by factors including the absence of technical specifics of the image, undisclosed clinical information and the unavailability of the original interpretation. Specialists at the institution that performed the study may have access to information not available to us that could make a difference in this interpretation. We suggest that you obtain the original interpretation from the site where the study was performed. Finalized by Kobi Musa MD on 01/27/2025 3:53 [facility] HospitalMR TRA RADIOLOGIST OVERREADMR TRA RADIOLOGIST OVERREAD Outside Study: MRI OF THE CERVICAL SPINE WITHOUT CONTRAST CLINICAL HISTORY: Cervical pain. COMPARISON: None. TECHNIQUE: Multiplanar MRI of the cervical spine without contrast.. Initial study performed on 01/26/2025 at [facility] Second opinion was requested by Dr. Sharona Oliveros. FINDINGS: There is straightening of the lordotic curvature. There is no malalignment within the cervical spine. There is no loss of the vertebral body or disc space heights in the cervical spine. There are no bone marrow signal abnormalities. The craniocervical junction is within normal limits. There is an empty sella turcica. There are no convincing signal abnormalities of the cervical cord. Disc space levels: C2-C3: The disc is unremarkable. C3-C4: The disc is unremarkable. C4-C5: The disc is unremarkable. C5-C6: The disc is unremarkable. C6-C7: The disc is unremarkable. C7-T1: The disc is unremarkable. IMPRESSION: 1. Unremarkable MRI of the cervical spine without contrast, as detailed above. 2. Incidental visualization of an empty sella turcica. PLEASE NOTE: Our interpretation of studies performed at an outside institution is limited by factors including the absence of technical specifics of the image, undisclosed clinical information and the unavailability of the original interpretation. Specialists at the institution that performed the study may have access to information not available to us that could make a difference in this interpretation. We suggest that you obtain the original interpretation from the site where the study was performed. Finalized by Kobi Musa MD on 01/27/2025 3:50 [facility]MR [facility]OLOGIST OVERREADMR TRA RADIOLOGIST OVERREAD Outside Study: 6 series from a lumbar spine without contrast from [facility] dated 01/15/2025were submitted for second opinion. CLINICAL HISTORY: Neck pain. Degenerative change COMPARISON: 06/10/2021 MR from [facility] TECHNIQUE: MR lumbar spine without contrast. Initial study performed on 01/15/2025 Second opinion was requested by Dr. Oliveros FINDINGS: MR of the lumbar spine without contrast with the above history demonstrates lumpy contour of the kidneys, especially the left kidney. The other paravertebral structures appear unremarkable. Degenerative bulge of the T11-T12 disc may be associated with small posterior annular tear and bulges into the anterior subarachnoid space without high-grade spinal stenosis. The T12-L1, L1-2, and L2-3 levels are unremarkable without disc herniation, significant spinal stenosis or foraminal stenosis. At L3-4 there are mild degenerative changes within the disc which bulges posteriorly to result in mild to moderate narrowing of the thecal sac. The disc bulge extends into the foramina without significant foraminal stenosis. At L4-5 there are degenerative changes within the disc with small central disc protrusion and posterior annular tear. This results in mild to moderate impingement upon the thecal sac but no significant foraminal stenosis. At L5-S1 there is a small posterior annular tear within the bulging disc without significant compression of the thecal sac or foraminal stenosis. IMPRESSION: L4-5 central disc protrusion or small herniation with annular tear indents the anterior thecal sac and results in mild to moderate spinal stenosis. There is no foraminal stenosis at this level. Small annular tears also noted at L5-S1 disc and possibly T11-12 disc. PLEASE NOTE: Our interpretation of studies performed at an outside institution is limited by factors including the absence of technical specifics of the image, undisclosed clinical information and the unavailability of the original interpretation. Specialists at the institution that performed the study may have access to information not available to us that could make a difference in this interpretation. We suggest that you obtain the original interpretation from the site where the study was performed. Finalized by Jace Gaspar MD on 01/27/2025 3:50 [facility] TRA radiologist overreadon [id number] Study: MRI OF THE THORACIC SPINE WITHOUT CONTRAST CLINICAL HISTORY: Neck and back pain COMPARISON: None. TECHNIQUE: Multiplanar MRI of the thoracic spine without contrast.. Initial study performed on 01/15/2025 at [facility]. Second opinion was requested by Dr. Sharona Oliveros. FINDINGS: There is no malalignment of the thoracic spine. There is no loss of the vertebral body or disc space heights. There are small nonaggressive degenerative Schmorl's nodes within the mid to lower thoracic spine. There are no discrete worrisome bone marrow signal abnormalities. There is no evidence of bone marrow edema. There are no convincing signal abnormalities of the thoracic cord. Disc space levels: At T6-T7, there is a tiny central disc protrusion barely indenting thecal sac. At T8-T9, there is a very tiny right paracentral disc protrusion barely flattening the thecal sac. At T11-T12, there is a minimal disc bulge flattening the thecal sac. There is no evidence of canal stenosis, neural foraminal stenosis, or focal nerve impingement within the thoracic spine. IMPRESSION: 1. 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 There is no evidence ofcanal stenosis, neural foraminal stenosis, or focal nerve impingement. PLEASE NOTE: Our interpretation of studies performed at an outside institution is limited by factors including the absence of technical specifics of the image, undisclosed clinical information and the unavailability of the original interpretation. Specialists at the institution that performed the study may have access to information not available to us that could make a difference in this interpretation. We suggest that you obtain the original interpretation from the site where the study was performed. Finalized by Kobi Musa MD on 01/27/2025 3:53 Kobi Colvin MD - 01/27/2025 Outside Study: MRI OF THE THORACIC SPINE WITHOUT CONTRAST CLINICAL HISTORY: Neck and back pain COMPARISON: None. TECHNIQUE: Multiplanar MRI of the thoracic spine without contrast.. Initial study performed on 01/15/2025 at [facility]. Second opinion was requested by Dr. Sharona Oliveros. FINDINGS: There is no malalignment of the thoracic spine. There is no loss of the vertebral body or disc space heights. There are small nonaggressive degenerative Schmorl's nodes within the mid to lower thoracic spine. There are no discrete worrisome bone marrow signal abnormalities. There is no evidence of bone marrow edema. There are no convincing signal abnormalities of the thoracic cord. Disc space levels: At T6-T7, there is a tiny central disc protrusion barely indenting thecal sac. At T8-T9, there is a very tiny right paracentral disc protrusion barely flattening the thecal sac. At T11-T12, there is a minimal disc bulge flattening the thecal sac. There is no evidence of canal stenosis, neural foraminal stenosis, or focal nerve impingement within the thoracic spine. IMPRESSION: 1. 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 There is no evidence ofcanal stenosis, neural foraminal stenosis, or focal nerve impingement. PLEASE NOTE: Our interpretation of studies performed at an outside institution is limited by factors including the absence of technical specifics of the image, undisclosed clinical information and the unavailability of the original interpretation. Specialists at the institution that performed the study may have access to information not available to us that could make a difference in this interpretation. We suggest that you obtain the original interpretation from the site where the study was performed. Finalized by Kobi Musa MD on 01/27/2025 3:53 PM InboxFeverSheltering Arms HospitalOutside Study: MRI OF THE CERVICAL SPINE WITHOUT CONTRAST CLINICAL HISTORY: Cervical pain. COMPARISON: None. TECHNIQUE: Multiplanar MRI of the cervical spine without contrast.. Initial study performed on 01/26/2025 at [facility] Second opinion was requested by Dr. Sharona Oliveros. FINDINGS: There is straightening of the lordotic curvature. There is no malalignment within the cervical spine. There is no loss of the vertebral body or disc space heights in the cervical spine. There are no bone marrow signal abnormalities. The craniocervical junction is within normal limits. There is an empty sella turcica. There are no convincing signal abnormalities of the cervical cord. Disc space levels: C2-C3: The disc is unremarkable. C3-C4: The disc is unremarkable. C4-C5: The disc is unremarkable. C5-C6: The disc is unremarkable. C6-C7: The disc is unremarkable. C7-T1: The disc is unremarkable. IMPRESSION: 1. Unremarkable MRI of the cervical spine without contrast, as detailed above. 2. Incidental visualization of an empty sella turcica. PLEASE NOTE: Our interpretation of studies performed at an outside institution is limited by factors including the absence of technical specifics of the image, undisclosed clinical information and the unavailability of the original interpretation. Specialists at the institution that performed the study may have access to information not available to us that could make a difference in this interpretation. We suggest that you obtain the original interpretation from the site where the study was performed. Finalized by Kobi Musa MD on 01/27/2025 3:50 [facility] Piper [facility] - 01/27/2025 Outside Study: MRI OF THE CERVICAL SPINE WITHOUT CONTRAST CLINICAL HISTORY: Cervical pain. COMPARISON: None. TECHNIQUE: Multiplanar MRI of the cervical spine without contrast.. Initial study performed on 01/26/2025 at [facility] Second opinion was requested by Dr. Sharona Oliveros. FINDINGS: There is straightening of the lordotic curvature. There is no malalignment within the cervical spine. There is no loss of the vertebral body or disc space heights in the cervical spine. There are no bone marrow signal abnormalities. The craniocervical junction is within normal limits. There is an empty sella turcica. There are no convincing signal abnormalities of the cervical cord. Disc space levels: C2-C3: The disc is unremarkable. C3-C4: The disc is unremarkable. C4-C5: The disc is unremarkable. C5-C6: The disc is unremarkable. C6-C7: The disc is unremarkable. C7-T1: The disc is unremarkable. IMPRESSION: 1. Unremarkable MRI of the cervical spine without contrast, as detailed above. 2. Incidental visualization of an empty sella turcica. PLEASE NOTE: Our interpretation of studies performed at an outside institution is limited by factors including the absence of technical specifics of the image, undisclosed clinical information and the unavailability of the original interpretation. Specialists at the institution that performed the study may have access to information not available to us that could make a difference in this interpretation. We suggest that you obtain the original interpretation from the site where the study was performed. Finalized by Kobi Musa MD on 01/27/2025 3:50 PM [employer] [facility] CenterOutside Study: 6 series from a lumbar spine without contrast from [facility] dated 01/15/2025were submitted for second opinion. CLINICAL HISTORY: Neck pain. Degenerative change COMPARISON: 06/10/2021 MR from [facility] TECHNIQUE: MR lumbar spine without contrast. Initial study performed on 01/15/2025 Second opinion was requested by Dr. Oliveros FINDINGS: MR of the lumbar spine without contrast with the above history demonstrates lumpy contour of the kidneys, especially the left kidney. The other paravertebral structures appear unremarkable. Degenerative bulge of the T11-T12 disc may be associated with small posterior annular tear and bulges into the anterior subarachnoid space without high-grade spinal stenosis. The T12-L1, L1-2, and L2-3 levels are unremarkable without disc herniation, significant spinal stenosis or foraminal stenosis. At L3-4 there are mild degenerative changes within the disc which bulges posteriorly to result in mild to moderate narrowing of the thecal sac. The disc bulge extends into the foramina without significant foraminal stenosis. At L4-5 there are degenerative changes within the disc with small central disc protrusion and posterior annular tear. This results in mild to moderate impingement upon the thecal sac but no significant foraminal stenosis. At L5-S1 there is a small posterior annular tear within the bulging disc without significant compression of the thecal sac or foraminal stenosis. IMPRESSION: L4-5 central disc protrusion or small herniation with annular tear indents the anterior thecal sac and results in mild to moderate spinal stenosis. There is no foraminal stenosis at this level. Small annular tears also noted at L5-S1 disc and possibly T11-12 disc. PLEASE NOTE: Our interpretation of studies performed at an outside institution is limited by factors including the absence of technical specifics of the image, undisclosed clinical information and the unavailability of the original interpretation. Specialists at the institution that performed the study may have access to information not available to us that could make a difference in this interpretation. We suggest that you obtain the original interpretation from the site where the study was performed. Finalized by Jace Gaspar MD on 01/27/2025 3:50 Agustin Mejia MD - 01/27/2025 Outside Study: 6 series from a lumbar spine without contrast from [facility] dated 01/15/2025were submitted for second opinion. CLINICAL HISTORY: Neck pain. Degenerative change COMPARISON: 06/10/2021 MR from [facility] TECHNIQUE: MR lumbar spine without contrast. Initial study performed on 01/15/2025 Second opinion was requested by Dr. Oliveros FINDINGS: MR of the lumbar spine without contrast with the above history demonstrates lumpy contour of the kidneys, especially the left kidney. The other paravertebral structures appear unremarkable. Degenerative bulge of the T11-T12 disc may be associated with small posterior annular tear and bulges into the anterior subarachnoid space without high-grade spinal stenosis. The T12-L1, L1-2, and L2-3 levels are unremarkable without disc herniation, significant spinal stenosis or foraminal stenosis. At L3-4 there are mild degenerative changes within the disc which bulges posteriorly to result in mild to moderate narrowing of the thecal sac. The disc bulge extends into the foramina without significant foraminal stenosis. At L4-5 there are degenerative changes within the disc with small central disc protrusion and posterior annular tear. This results in mild to moderate impingement upon the thecal sac but no significant foraminal stenosis. At L5-S1 there is a small posterior annular tear within the bulging disc without significant compression of the thecal sac or foraminal stenosis. IMPRESSION: L4-5 central disc protrusion or small herniation with annular tear indents the anterior thecal sac and results in mild to moderate spinal stenosis. There is no foraminal stenosis at this level. Small annular tears also noted at L5-S1 disc and possibly T11-12 disc. PLEASE NOTE: Our interpretation of studies performed at an outside institution is limited by factors including the absence of technical specifics of the image, undisclosed clinical information and the unavailability of the original interpretation. Specialists at the institution that performed the study may have access to information not available to us that could make a difference in this interpretation. We suggest that you obtain the original interpretation from the site where the study was performed. Finalized by Jace Gaspar MD on 01/27/2025 3:50 PM [facility] HospitalMR TRA radiologist overreadOrdered By: Kobi Musa on [id number] [facility] Work Phone: mr TRA radiologist overreadOrdered By: Agustin Gaspar on [id number] Arms Hospital Work Phone: No Panel Informationon [id number] Study observation (narrative)[facility] Arms HospitalPOCT NURSING URINE MACROSCOPIC UA on [id number] NURNegativeNormalNegativeProMedica Tubbs HospitalComment on above:Performed By: #### NUM #### [facility] ([facility]) [address] [place] [address] VIRBLOOD/HGB NURModerateAbnormalNegativeProMedica Walnut Shade HospitalComment on above:Performed By: #### NUM #### [facility] ([facility]) [address] [place] [address] VIRGLUCOSE NURNegativeNormalNegativeProFostoria City Hospitalca [facility] Comment on above:Performed By: #### NUM #### [facility] ([facility]) [address] [place] [address] VIRKETONES NUR15 mg/dLAbnormalNegativeProFostoria City Hospitalca [facility] Comment on above:Performed By: #### NUM #### [facility] ([facility]) [address] [place] [address] VIRLEUKOCYTE ESTERASE NURLargeAbnormalNegativeProMedica Walnut Shade HospitalComment on above:Performed By: #### NUM #### [facility] ([facility]) [address] [place] [address] VIRNITRITE NURPositiveAbnormalNegativeSt. John of God Hospital Comment on above:Performed By: #### NUM #### [facility] ([facility]) [address] [place] [address] VIRPH NUR7.6Xtjlkm6.0, 6.0, 6.5, 7.0, 7.5, 8.0, 8.5, 5.5 ProMedica Walnut Shade HospitalComment on above:Performed By: #### NUM #### [facility] ([facility]) [address] [place] [address] VIRPROTEIN BONG>=300 mg/dLAbnormalNegativeProMedica Walnut Shade HospitalComment on above:Performed By: #### NUM #### [facility] ([facility]) [address] [place] [address] VIRSPECIFIC GRAVITY NUR1.719Zlpxjo6.010, 1.015, 1.020, 1.025 Sum[facility] Healtha Walnut Shade HospitalComment on above:Performed By: #### NUM #### [facility] ([facility]) [address] [place] [address] VIRUROBILINOGEN NUR0.2 E.U./dLNormalSouthern [facility] Comment on above:Performed By: #### NUM #### [facility] ([facility]) [address] [place] [address] VIRPOCT Nursing Urine Macroscopic UAon [id number] Ql (U)NegativeNegativeNortheastern Vermont Regional HospitalMedica Health SystemGlucose [Mass/Vol]NegativeNegative ProMedic Health SystemHemoglobin Ql (U)ModerateAbnormalNegativeNortheastern Vermont Regional HospitalMedica Health SystemInterpretation and review of laboratory resultsAbnormalProEncompass Health Rehabilitation Hospital Of [facility] Alabama Health SystemKetones (U) [Mass/Vol]15 mg/dLAbnormalNegativePremier Health [facility] System Leukocyte esterase Test strip Ql (U)LargeAbnormalNegativeProMedica Health System Nitrite Ql (U)PositiveAbnormalNegativeNortheastern Vermont Regional HospitalMedica Health SystempH (U)7.0 [pH]5.0, 6.0, 6.5, 7.0, 7.5, 8.0, 8.5, 5.5ProMedica Health SystemProtein Ql (U)>=300 mg/dLAbnormalNegativeNortheastern Vermont Regional HospitalMedica Health SystemSpecific gravity (U) [Rel density] 1.0201.010, 1.015, 1.020, 1.025ProMediks Health SystemUrobilinogen Qn (U) 0.117789863 {[place]'U}/dLProMedica Health SystemProMedica Health SystemPOCT , URINE (NUCG)on [id number] HCG ( test) Ql (U)Negative NormalNegative, IndeterminateSt. John of God HospitalComment on above:Performed By: #### NUCG #### [facility] ([facility]) [address] [place] [address] VIRPOCT , urineon [id number] ( test) Ql (U)NegativeNegative, IndeterminateSheltering Arms HospitalInterpretation and review of laboratory resultsNormReading Hospital TROP I, HIGH SENSITIVITY 1 HOURon [id number] I, HIGH SENSITIVITY<^2 Normal<16St. John of God HospitalComment on above:Performed By: #### TNIHS1 #### [facility] ([facility]) [address] [place] [address] VIRTROPONIN I, HIGH SENSITIVITY 0 HOURon [id number] I, HIGH SENSITIVITY<^2Normal<16St. John of God HospitalComment on above:Performed By: #### TNIHS0 #### [facility] ([facility]) [address] [place] [address] VIRTroponin I, High Sensitivity 0 Houron 01-27-2025 Interpretation and review of laboratory resultsNoAtrium Health Cleveland Troponin I.cardiac High sensitivity method [Mass/Vol]ng/LNINF - 16 ng/LProMedica Chicot Memorial Medical CenterTroponin I, High Sensitivity 1 Houron [id number] and review of laboratory resultsNoAtrium Health ClevelandTroponin I.cardiac High sensitivity method [Mass/Vol]ng/LNINF - 16 ng/L ProMandalusia healtha Chicot Memorial Medical CenterURINE CULTUREon [id number] identified Cx Nom (U)CULTURE RESULTS ESCHERICHIA COLI >100,000 CFU/mL Escherichia coli [ S = SUSCEPTIBLE R = RESISTANT I = INTERMEDIATE S-DO = Susceptible-dose dependent NS = Non-suscceptible NO = No Interpretation ] Organism: ESCHERICHIA COLI Antibiotic Interpretation TALITA Status Ampicillin S <=^2.0 F AMP/SULBACTAM S <=^2.0 F PIPERACIL/TAZOBACTAM S <=^4.0 F Cefazolin (non-urinary) S <=^1.0 F Cefazolin (urinary) S <=^1.0 F Ceftriaxone S <=^0.25 F Gentamicin S <=^1.0 F Ciprofloxacin S <=^0.06 F Levofloxacin S <=^0.12 F Nitrofurantoin S <=^16.0 F Trimethoprim + Sulfamethoxazole S <=^1.0 FSusceptibleSt. John of God Hospital Comment on above:Order Comment: Along with 10,000 to 50,000 CFU/mL Normal Urogenital Beau.Performed By: #### TNIHS0 #### [facility] ([facility]) [address] [place] [address] VIRXR FOOT LT MIN 3 VWSon [id number] FOOT LT MIN 3 VWSXR FOOT LT MIN 3 VWS XR FOOT LT MIN 3 VWS Clinical Information: previous bone graft, c/f osteomyelitis. Please compare to prior study Comparison: None. IMPRESSION: * No acute fracture. Deformity of the first proximal phalanx likely related to remote trauma. Postsurgical changes in the ankle and midfoot with fusion. Mild eccentric sclerosis in the calcaneus, nonspecific. Soft tissue swelling. Finalized by Luis Carlos Atkins MD on 01/27/2025 4:43 PMNormalSt. John of God HospitalXR Foot - left 3 or 4 Viewson [id number] FOOT LT MIN 3 VWS Clinical Information: previous bone graft, c/f osteomyelitis. Please compare to prior study Comparison: None. IMPRESSION: * No acute fracture. Deformity of the first proximal phalanx likely related to remote trauma. Postsurgical changes in the ankle and midfoot with fusion. Mild eccentric sclerosis in the calcaneus, nonspecific. Soft tissue swelling. Finalized by Luis Carlos Atkins MD on 01/27/2025 4:43 PMSLuis Carlos Rivera MD - 01/27/2025 XR FOOT LT MIN 3 VWS Clinical Information: previous bone graft, c/f osteomyelitis. Please compare to prior study Comparison: None. IMPRESSION: * No acute fracture. Deformity of the first proximal phalanx likely related to remote trauma. Postsurgical changes in the ankle and midfoot with fusion. Mild eccentric sclerosis in the calcaneus, nonspecific. Soft tissue swelling. Finalized by Luis Carlos Atkins MD on 01/27/2025 4:43 PM [facility] HospitalRadiology Study observation (narrative)[facility] CenterXR Foot - left 3 or 4 ViewsOrdered By: Luis Carlos Atkins on 01-27-2025 [facility] Work Phone: Office Visiton [phone]-up [phone] Blanka Farias 2000 F Date Provider Department Center 01/07/2025 Ha-WARD SCHUMACHER [facility] No family history on file Level of Service:68310 [place] OFFICE/OUTPATIENT NEW LOW MDM 30 MINUTESNormal [facility]36on [phone] called to schedule a new patient appointment with our office. Patient wants to be seen for: Pt has bone depth in left a foot, can't sit on her right hip, and pain in her spine. Patient had MRI done at [place] Patient had surgery done on left foot by [facility] Patient has not been seen by any other orthopaedic surgeons for this issue This appointment IS NOT related to a work related injuryNormalUniversity of Baylor Scott & White Heart And Vascular Hospital – DallasInsulinon 28-25-0001Rafemza78.1 mU/LNormalMercy Health Clermont HospitalComment on above:Performed By: #### FE, LIPR, GLYHGB, T4, INSU, VD25, FT3 ####[facility] HospitalSolar CensusMdgcfrmpdgqm[address] [place], [place] [id number] Lab Director: Bala Borges MD#### CP, CDP, TSH ####[address] [place] [address] Lab Director: Criselda Rick RangeNoBlanchard Valley Health SystemComment on above:Result Comment: Fastin.6-24.9 30 min: 20-112 60 min: 29-88 90 min: 26-84 120 min: 22-79Performed By: #### FE, LIPR, GLYHGB, T4, INSU, VD25, FT3 ####[facility] [address] [place], [place] [id number] Lab Director: Bala Borges MD#### CP, CDP, TSH ####[address] [place] [address] Lab Director: Gage Barraza MDInsulin, totalon 97-32-9865Itwkenn22.1 mU/LBon Veterans Health AdministrationInsulin Reference Range:Bon Veterans Health AdministrationComment on above:Fastin.6-24.9 30 min: 20-112 60 min: 29-88 90 min: 26-84 120 min: 22-79 Ironon 68-25-8731Zmpiqwyixkdqxe and review of laboratory resultsAbnormalBon [facility] Centern [Mass/Vol]35 ug/dLLow37 - 145 ug/dLBon [facility] Centern [Mass/Vol]35 ug/pKGqs98-948XhajmMercy Health Clermont HospitalComment on above: Performed By: #### FE, LIPR, GLYHGB, T4, INSU, VD25, FT3 ####[facility] [address] [place], [place] 3999908 Lab Director: Bala Borges MD#### CP, CDP, TSH ####[address] [place] [address] Lab Director: Gage Barraza MDLipid Panelon 06-50-5197Rzvhtdkyqdy [Mass/Vol]185 mg/dL0 - 199 mg/dLBon [facility] Comment on above: Cholesterol Guidelines: <200 Desirable 200-240 Borderline >240 Undesirable Cholesterol in HDL [Mass/Vol]54 mg/dL40 - PINF mg/dLBon [facility] Comment on above: HDL Guidelines: <40 Undesirable 40-59 Borderline >59 Desirable Cholesterol in LDL [Mass/Vol]112 mg/dLHigh0 - 100 mg/dLBFort [facility] Comment on above: LDL Guidelines: <100 Desirable 100-129 Near to/above Desirable 130-159 Borderline >159 Undesirable Direct (measured) LDL and calculated LDL are not interchangeable tests. Cholesterol in VLDL [Mass/Vol]19 mg/dL1 - 30 mg/dLBon [facility] Cholesterol.total/Cholesterol in HDL [Mass ratio]3.4 {ratio}NINF - 5.0Bon [facility] AdministrationInterpretation and review of laboratory resultsAbnormalBon [facility] Health AdministrationTriglyceride [Mass/Vol]93 mg/dLNINF - 150 mg/dLBon [facility] Health AdministrationComment on above: Triglyceride Guidelines: <150 Desirable 150-199 Borderline 200-499 High >499 Very high Based on AHA Guidelines for fasting triglyceride, January 2012. Lipid Profileon 48-18-9245Ophhqqnhoht [Mass/Vol]185 mg/dLNormal0-199Mer[facility] Health Clermont HospitalComrehabilitation institute of [place] on above:Result Comment: Cholesterol Guidelines: <200 Desirable 200-240 Borderline >240 UndesirablePerformed By: #### FE, LIPR, GLYHGB, T4, INSU, VD25, FT3 ####[facility] [address] [place] [address] Lab Director: Bala Borges MD#### CP, CDP, TSH ####[address] [place] [address]83 Lab Director: Gage Barraza MD Cholesterol in HDL [Mass/Vol]54 mg/dLNormal>40Mer[facility] Clermont HospitalComrehabilitation institute of [place] on above:Result Comment: HDL Guidelines: <40 Undesirable 40-59 Borderline >59 DesirablePerformed By: #### FE, LIPR, GLYHGB, T4, INSU, VD25, FT3 ####[facility] [address]igspvx[address] [place] [address] Lab Director: Bala Borges MD#### CP, CDP, TSH ####[address] [place] [address] Lab Director: EMELIA Rickholesterol in LDL [Mass/Vol]112 mg/dLHigh0-100[facility] on above:Result Comment: LDL Guidelines: <100 Desirable 100-129 Near to/above Desirable 130-159 Borderline >159 Undesirable Direct (measured) LDL and calculated LDL are not interchangeable tests.Performed By: #### FE, LIPR, GLYHGB, T4, INSU, VD25, FT3 ####[place] [address] [place] [address] Lab Director: Bala Borges MD#### CP, CDP, TSH ####[address] [place], [place] [address]83 Lab Director: EMELIA Rickholesterol in VLDL [Mass/Vol]19 mg/dLNormal1-30MerMidState Medical CenterComment on above:Performed By: #### FE, LIPR, GLYHGB, T4, INSU, VD25, FT3 ####[address] [address] Lab Director: Bala Borges MD#### CP, CDP, TSH ####[address] [place], [place] 230[address] Lab Director: EMELIA Rickholesteva.total/Cholesterol in HDL [Mass ratio]3.4 {ratio}Normal<5.0Mercy Health Clermont HospitalComment on above:Performed By: #### FE, LIPR, GLYHGB, T4, INSU, VD25, FT3 ####[address] [phone] Director: Bala Borges MD#### CP, CDP, TSH ####[address] [place], [place] 97[address] Lab Director: Gage Barraza MDTriglyceride [Mass/Vol]93 mg/dLNormal<150MerMidState Medical CenterComment on above:Result Comment: Triglyceride Guidelines: <150 Desirable 150-199 Borderline 200-499 High >499 Very high Based on AHA Guidelines for fasting triglyceride, January 2012.Performed By: #### FE, LIPR, GLYHGB, T4, INSU, VD25, FT3 ####[facility] [address]rep[address] [place], [place] [id number])[phone] Director: Bala Borges MD#### CP, CDP, TSH ####[address] [place] [address] Lab Director: Gage Barraza MDNo Panel Informationon 21-80-4366Mge [facility] AdministrationBon [facility] Health AdministrationT3, Freeon 09-23-2024 Free T3 [Mass/Vol]3.26 pg/mL2.00 - 4.40 pg/mLBon Veterans Health AdministrationFree T3 [Mass/Vol]3.26 pg/mLNormal2.00-4.40Mercy Health Clermont HospitalComment on above: Performed By: #### FE, LIPR, GLYHGB, T4, INSU, VD25, FT3 ####[facility] [address] [place], [place] 9211408 Lab Director: Bala Borges MD#### CP, CDP, TSH ####[address] [place] [address] Lab Director: Gage Barraza MDT4on 25-90-6170A8 [Mass/Vol]11.5 ug/dL4.5 - 11.7 ug/dLBon Veterans Health AdministrationThyroxine T4on 26-43-8280X0 [Mass/Vol]11.5 ug/dLNormal4.5-11.7Mer[facility] Health Clermont HospitalComment on above:Performed By: #### FE, LIPR, GLYHGB, T4, INSU, VD25, FT3 ####[facility] [address] [place], [place] 3592608 Lab Director: Bala Borges MD#### CP, CDP, TSH ####[address] , [place] 7830483 Lab Director: Gage Barraza MDVitamin D 25 Hydroxyon [id number]-oqewkwcadpfczh D3 [Mass/Vol]32.9 ng/mL30.0 - 100.0 ng/mL [facility] HospitalComment on above: Reference Range: Vitamin D status Range Deficiency <20 ng/mL Mild Deficiency 20-30 ng/mL Sufficiency 30-100 ng/mL Toxicity >100 ng/mL Vitamin D 25 OHon 30-91-6212Yjgqlpr D 25 OH32.9 ng/dVJvanmq58.0-100.0Mer[facility] Health Clermont HospitalComment on above:Result Comment: Reference Range: Vitamin D status Range Deficiency <20 ng/mL Mild Deficiency 20-30 ng/mL Sufficiency 30-100 ng/mL Toxicity >100 ng/mLPerformed By: #### FE, LIPR, GLYHGB, T4, INSU, VD25, FT3 ####[facility] [address] [place] [address] Lab Director: Bala Borges MD#### CP, CDP, TSH ####[facility] [address] [place] [address] Lab Director: Gage Barraza [facility] with Auto Differentialon 30-98-3332Sxafhqocz (Bld) [#/Vol]0.04 10*3/uLBon Secours Mercy HealthBasophils/100 WBC (Bld)0 %0 - 2 %[facility] HealthEosinophils (Bld) [#/Vol]0.09 10*3/uLBon Secours Mercy HealthEosinophils/100 WBC (Bld)1 %1 - 4 %[facility] HealthErythrocyte distribution width (RBC) [Ratio]13.3 % 11.8 - 14.4 %[facility] HealthHematocrit (Bld) [Volume fraction]36.5 % 36.3 - 47.1 %[facility] HealthHemoglobin (Bld) [Mass/Vol]12.1 g/dL11.9 - 15.1 g/dLBon Secours Mercy HealthImmature granulocytes (Bld) [#/Vol]0.04 10*3/uL [facility] HealthImmature granulocytes/100 WBC (Bld)0 %0[facility] HealthInterpretation and review of laboratory resultsAbnormalBon Secours Mercy HealthLymphocytes/100 WBC (Bld)18 %Low24 - 43 %[facility] Lymphocytes/100 WBC (Bld)2.31 %[facility] HealthMCH (RBC) [Entitic mass] 27.3 pg25.2 - 33.5 pgBon UK HealthcareHC (RBC) [Mass/Vol]33.2 g/dL28.4 - 34.8 g/dLBon SecCleveland Clinic Avon HospitalV (RBC) [Entitic vol]82.4 fLLow82.6 - 102.9 fLCarilion Stonewall Jackson HospitalMonocytes/100 WBC (Bld)7 %3 - 12 %Bon [facility] AdministrationMonocytes/100 WBC (Bld)0.83 %[facility] HospitalNeutrophils/100 WBC (Bld)74 %High36 - 65 %Bon [facility] Health AdministrationNucleated RBC/100 WBC (Bld) [Ratio]0 %0.0 per 100 WBCCarilion Stonewall Jackson HospitalPlatelet mean volume (Bld) [Entitic vol]10 fL8.1 - 13.5 fLCarilion Stonewall Jackson HospitalPlatelets (Bld) [#/Vol] 359 10*3/uLBon [facility] Health AdministrationRBC (Bld) [#/Vol]4.43 10*6/uL3.95 - 5.11 m/uL [facility] HospitalSegmented neutrophils/100 WBC (Bld)9.48 %HighBon Veterans Health AdministrationWBC other (Bld) [#/Vol]12.8HighValley HealthCBC with Diffon 71-46-3616Bki. Basophil0.04 k/uLNormal0.00-0.20Mer[facility] Clermont HospitalComment on above:Performed By: #### FE, LIPR, GLYHGB, T4, INSU, VD25, FT3 ####[facility] [address] [place] [address] Lab Director: Bala Borges MD#### CP, CDP, TSH ####[facility] [address] [place] [address] Lab Director: Constance Rick.Imm.Granulocyte0.04 k/uLNormal0.00-0.30Mer[facility] Clermont HospitalComment on above:Performed By: #### FE, LIPR, GLYHGB, T4, INSU, VD25, FT3 ####[place], [place] [address])[phone] Director: Bala Borges MD#### CP, CDP, TSH ####[address] [place], [place] [address])[phone] Director: Constance Rick.Neutrophil (Seg)9.48 k/uLHigh1.50-8.10Mer[facility] Clermont HospitalComment on above:Performed By: #### FE, LIPR, GLYHGB, T4, INSU, VD25, FT3 ####[place], [place] [address])[phone] Director: Bala Borges MD#### CP, CDP, TSH ####[address] [place], [place] [address])[phone] Director: Gage Barraza MDBasophils/100 WBC (Bld)0 %Normal 0-2MThe Surgical Hospital at SouthwoodsComrehabilitation institute of [place] on above:Performed By: #### FE, LIPR, GLYHGB, T4, INSU, VD25, FT3 ####[place], [place] [address])[phone] Director: Bala Borges MD#### CP, CDP, TSH ####[address] [place], [place] [address])[phone] Director: Gage Barraza MDEosinophils (Bld) [#/Vol]0.09 10*3/uLNormal0.00-0.44 [facility] HospitalComrehabilitation institute of [place] on above:Performed By: #### FE, LIPR, GLYHGB, T4, INSU, VD25, FT3 ####[place], [place] [address])[phone] Director: Bala Borges MD#### CP, CDP, TSH ####[address] [place], [place] [address])[phone] Director: Gage Barraza MDEosinophils/100 WBC (Bld)1 %Normal1-4Mer[facility] Clermont HospitalComment on above:Performed By: #### FE, LIPR, GLYHGB, T4, INSU, VD25, FT3 ####[address] [address])[phone] Director: Bala Borges MD#### CP, CDP, TSH ####[address] [place] [address] Lab Director: Gage Barraza MDErythrocyte distribution width (RBC) [Ratio]13.3 %Qitddb51.8-14.4[facility] Comment on above:Performed By: #### FE, LIPR, GLYHGB, T4, INSU, VD25, FT3 ####[address] [address])[phone] Director: Bala Borges MD#### CP, CDP, TSH ####[address] [place], [place] [address])[phone] Director: Gage Barraza MD Hematocrit (Bld) [Volume fraction]36.5 %Wxscmy91.3-47.1MThe [facility] Hospital [facility]woods Comment on above:Performed By: #### FE, LIPR, GLYHGB, T4, INSU, VD25, FT3 ####[address] [address])[phone] Director: Bala Borges MD#### CP, CDP, TSH ####[address] [place] [address]([facility])[phone] Director: Gage Barraza MD Hemoglobin (Bld) [Mass/Vol]12.1 g/cKYultfl01.9-15.1MThe Surgical Hospital at SouthwoodsComment on above:Performed By: #### FE, LIPR, GLYHGB, T4, INSU, VD25, FT3 ####[facility] [address] [place] [address] Lab Director: Bala Borges MD#### CP, CDP, TSH ####[address] [place], [place] 99685419)[phone] Director: Gage Barraza MDImmature granulocytes/100 WBC (Bld)0 %Ntnlzt2AotvsMercy Health Clermont HospitalComment on above: Performed By: #### FE, LIPR, GLYHGB, T4, INSU, VD25, FT3 ####[facility] [address] [place], [place] 86541419)[phone] Director: Bala Borges MD#### CP, CDP, TSH ####[address] [place] [address] Lab Director: Gage Barraza MDLymphocytes (Bld) [#/Vol]2.31 10*3/uLNormal1.10-3.70[facility] Clermont HospitalComment on above: Performed By: #### FE, LIPR, GLYHGB, T4, INSU, VD25, FT3 ####[place] [address] [place] [address] Lab Director: Bala Borges MD#### CP, CDP, TSH ####[address] [place] [address] Lab Director: Gage Barraza MDLymphocytes/100 WBC (Bld)18 %Vae04-69KgsssMercy Health Clermont HospitalComment on above:Performed By: #### FE, LIPR, GLYHGB, T4, INSU, VD25, FT3 ####[facility] [address] [place], [place] [id number])[phone] Director: Bala Borges MD#### CP, CDP, TSH ####[address] [place] [address] Lab Director: CARLOS RickCH (RBC) [Entitic mass]27.3 pg Nbnqdh40.2-33.5Mer[facility] Clermont HospitalComment on above:Performed By: #### FE, LIPR, GLYHGB, T4, INSU, VD25, FT3 ####[facility] N[address]vx[address] [place], [place] [address]158419)[phone] Director: Bala Borges MD#### CP, CDP, TSH ####[address] [place] [address])[phone] Director: CARLOS RickCHC (RBC) [Mass/Vol]33.2 g/nAWazjjz24.4-34.8[facility] HospitalComment on above:Performed By: #### FE, LIPR, GLYHGB, T4, INSU, VD25, FT3 ####[place], [place] [address])[phone] Director: Bala Borges MD#### CP, CDP, TSH ####[address] [place] [address])[phone] Director: CARLOS RickCV (RBC) [Entitic vol]82.4 fLLow82.6-102.9[facility] HospitalComment on above:Performed By: #### FE, LIPR, GLYHGB, T4, INSU, VD25, FT3 ####[facility] Hvx[address] [place], [place] [id number])[phone] Director: Bala Borges MD#### CP, CDP, TSH ####[address] [place], [place] [address])[phone] Director: CARLOS Rickonocytes (Bld) [#/Vol]0.83 10*3/uLNormal0.10-1.20[facility] HospitalComment on above: Performed By: #### FE, LIPR, GLYHGB, T4, INSU, VD25, FT3 ####[facility] [address] [place] [address] Lab Director: Bala Borges MD#### CP, CDP, TSH ####[address] [place] [address] Lab Director: CARLOS Rickonocytes/100 WBC (Bld)7 %Normal3-12[facility] HospitalComment on above:Performed By: #### FE, LIPR, GLYHGB, T4, INSU, VD25, FT3 ####[facility] [address] [place] [address] Lab Director: Bala Borges MD#### CP, CDP, TSH ####[address] [place] [address] Lab Director: Gage Barraza MDNeutrophil (Seg)74 %Mcuh91-44JlkmmMercy Health Clermont Hospital Comment on above:Performed By: #### FE, LIPR, GLYHGB, T4, INSU, VD25, FT3 ####[address] [address] Lab Director: Bala Borges MD#### CP, CDP, TSH ####[address] [place] [address] Lab Director: Gage Barraza MDNRBC Automated0.0 per 100 WBCNormal0.0Mer[facility] Clermont HospitalComment on above:Performed By: #### FE, LIPR, GLYHGB, T4, INSU, VD25, FT3 ####[place] [place] [address] Lab Director: Bala Borges MD#### CP, CDP, TSH ####[address] [place] [address] Lab Director: BONNIE Ricklatelet mean volume (Bld) [Entitic vol]10.0 fLNormal8.1-13.5Mer[facility] Clerm[facility] HospitalComment on above: Performed By: #### FE, LIPR, GLYHGB, T4, INSU, VD25, FT3 ####[facility] [address]jj[address] [place], [place] 33841419)[phone] Director: Bala Borges MD#### CP, CDP, TSH ####[address] [place], [place] [address])[phone] Director: Evangelist Rick ([facility]) [#/Vol]359 10*3/vGOkvolw214-533CxhnsMercy Health Clermont HospitalComment on above:Performed By: #### FE, LIPR, GLYHGB, T4, INSU, VD25, FT3 ####[facility] [address] [place], [place] [address]3698419)[phone] Director: Bala Borges MD#### CP, CDP, TSH ####[address] [place] [address])[phone] Director: DEWAYNE Rick ([facility]) [#/Vol]4.43 10*6/uL Normal3.95-5.11[facility] Clermont HospitalComment on above:Performed By: #### FE, LIPR, GLYHGB, T4, INSU, VD25, FT3 ####[facility] [address] [place], [place] 79492419)[phone] Director: Bala Borges MD#### CP, CDP, TSH ####[address] [place] [address]65419)[phone] Director: KEZIA Rick ([facility]) [#/Vol]12.8 10*3/uLHigh3.5-11.3MThe Surgical Hospital at SouthwoodsComment on above:Performed By: #### FE, LIPR, GLYHGB, T4, INSU, VD25, FT3 ####[facility] [address] [place] [address] Lab Director: Bala Borges MD#### CP, CDP, TSH ####[address] [place] [address] Lab Director: EMELIA Rickomp Metabolic Profon 39-44-9451Poqlhuh [Mass/Vol]4.8 g/dLNormal3.5-5.2MThe Surgical Hospital at SouthwoodsComment on above:Performed By: #### FE, LIPR, GLYHGB, T4, INSU, VD25, FT3 ####[facility] If[address]bqpf[address] [place], [place] 44927419)[phone] Director: Bala Borges MD#### CP, CDP, TSH ####[address] [place] [address])[phone] Director: Gage Barraza MDAlbumin/Glob Ratio1.0Yyqkvf9.0-2.5[facility] Clermont HospitalComment on above: Performed By: #### FE, LIPR, GLYHGB, T4, INSU, VD25, FT3 ####[address] [place], [place] 29690419)[phone] Director: Bala Borges MD#### CP, CDP, TSH ####[address] , [place] [address])[phone] Director: Radha Rickline Phos74 U/LYkjidr30-883SvdnpMercy Health Clermont HospitalComment on above:Performed By: #### FE, LIPR, GLYHGB, T4, INSU, VD25, FT3 ####[address] [place], [place] 55951419)[phone] Director: Bala Borges MD#### CP, CDP, TSH ####[address] , [place] [id number])[phone] Director: Gage Barraza MDALT [Catalytic activity/Vol]22 U/TBdqdgz22-62Moyrh [place] HospitalComment on above:Performed By: #### FE, LIPR, GLYHGB, T4, INSU, VD25, FT3 ####[address] [address])[phone] Director: Bala Borges MD#### CP, CDP, TSH ####[address] [place] [address]([facility])[phone] Director: Charlie Rick gap [Moles/Vol]16 mmol/LNormal9-16[facility] Clermont HospitalComment on above: Performed By: #### FE, LIPR, GLYHGB, T4, INSU, VD25, FT3 ####[address] [address])[phone] Director: Bala Borges MD#### CP, CDP, TSH ####[address] [place], [place] [address])[phone] Director: Gage Barraza MDAST [Catalytic activity/Vol]29 U/AYbhxld69-85TftnyMercy Health Clermont HospitalComrehabilitation institute of [place] on above:Performed By: #### FE, LIPR, GLYHGB, T4, INSU, VD25, FT3 ####[address] [address])[phone] Director: Bala Borges MD#### NALINI, CDP, TSH ####[address] [place] [address])[phone] Director: Gage Barraza MDBilirubin [Mass/Vol]0.5 mg/dL Normal0.00-1.20[facility] HospitalComrehabilitation institute of [place] on above:Performed By: #### FE, LIPR, GLYHGB, T4, INSU, VD25, FT3 ####[address] [address])[phone] Director: Bala Borges MD#### CP, CDP, TSH ####[address] [place] [address])[phone] Director: Gage Barraza MDBUN/CRE Duejp75Nekwbd6-40Xxfpq Tiffin HospitalComment on above:Performed By: #### FE, LIPR, GLYHGB, T4, INSU, VD25, FT3 ####[facility] [address] [place] [address] Lab Director: Bala Borges MD#### CP, CDP, TSH ####[address] [place], [place] [address])[phone] Director: EMELIA Rickalcium [Mass/Vol] 9.9 mg/dLNormal8.6-10.4Mer[facility] Clermont HospitalComment on above:Performed By: #### FE, LIPR, GLYHGB, T4, INSU, VD25, FT3 ####[address] 36985419)[phone] Director: Bala Borges MD#### CP, CDP, TSH ####[address] [place] [address] Lab Director: EMELIA Rickhloride [Moles/Vol]104 mmol/L Bgfuut55-506CqnmjMercy Health Clermont HospitalComment on above:Performed By: #### FE, LIPR, GLYHGB, T4, INSU, VD25, FT3 ####[facility] [address] [place], [place] [address]65419)[phone] Director: Bala Borges MD#### CP, CDP, TSH ####[address] [place] [address] Lab Director: Gage Barraza MDCO2 [Moles/Vol]21 mmol/MVlylqr16-64VidwlMercy Health Clermont HospitalComment on above:Performed By: #### FE, LIPR, GLYHGB, T4, INSU, VD25, FT3 ####[facility] [address]pa[address] [place] [address] Lab Director: Bala Borges MD#### CP, CDP, TSH ####[address] , [place] 47[address]683 Lab Director: EMELIA Rickreatinine [Mass/Vol]0.7 mg/dLNormal0.50-0.90Mer[facility] Clermont HospitalComment on above:Performed By: #### FE, LIPR, GLYHGB, T4, INSU, VD25, FT3 ####[address] [place] [address] Lab Director: Bala Borges MD#### NALINI, FARRAH, TSH ####[address] , [place] 0279483 Lab Director: Gage Barraza MDGFR/1.73 sq M.predicted among non-blacks MDRD (S/P/Bld) [Vol rate/Area]mL/min/{1.73_m2} Normal>60[facility] Clermont HospitalComment on above:Result Comment: These results are not intended for [...] or following therapy that affects renal tubular secretion.Performed By: #### FE, LIPR, GLYHGB, T4, INSU, VD25, FT3 ####[facility] [address] [place] [address] Lab Director: Bala Borges MD#### NALINI, CDP, TSH ####[address] [place], [place] [address] Lab Director: Gage Barraaz MDGlucose [Mass/Vol]84 mg/lHNebipw86-67SwchrThe Surgical Hospital at SouthwoodsComment on above:Performed By: #### FE, LIPR, GLYHGB, T4, INSU, VD25, FT3 ####[address] [place] [address] Lab Director: Bala Borges MD#### CP, CDP, TSH ####[address] [place] [address] Lab Director: BONNIE Rickotassium [Moles/Vol]4.1 mmol/LNormal3.7-5.3Mer[facility] Bristol HospitalComment on above:Performed By: #### FE, LIPR, GLYHGB, T4, INSU, VD25, FT3 ####[address] [address] Lab Director: Bala Borges MD#### CP, CDP, TSH ####[address] [place] [address] Lab Director: BONNIE Rickrotein [Mass/Vol] 8.1 g/dLNormal6.6-8.7[facility] Clermont HospitalComment on above:Performed By: #### FE, LIPR, GLYHGB, T4, INSU, VD25, FT3 ####[address] [address] Lab Director: Bala Borges MD#### CP, CDP, TSH ####[address] [place] [address] Lab Director: Gage Barraza MDSodium [Moles/Vol]141 mmol/L Wjtywk091-591IdyguMercy Health Clermont HospitalComment on above:Performed By: #### FE, LIPR, GLYHGB, T4, INSU, VD25, FT3 ####[address] [address] Lab Director: Bala Borges MD#### CP, CDP, TSH ####[address] [place] [address] lab Director: Gage Barraza MDUrea nitrogen [Mass/Vol]14 mg/dLNormal6-20[facility] Clermont HospitalComment on above:Performed By: #### FE, LIPR, GLYHGB, T4, INSU, VD25, FT3 ####[facility] [address] [place], [place] 0[address] lab Director: Bala Borges MD#### CP, CDP, TSH ####[facility] [address] [place] [address] lab Director: EMELIA Rickomprehensive Metabolic Panelon 50-04-4065Dmoevlt [Mass/Vol]4.8 g/dL3.5 - 5.2 g/dLBon SecPeaceHealthy HealthAlbumin/Globulin [Mass ratio]1.4 {ratio}1.0 - 2.5[facility] HealthALP [Catalytic activity/Vol]74 U/L35 - 104 U/LBon [facility]y HealthALT [Catalytic activity/Vol]22 U/L10 - 35 U/LBon [facility] HealthAnion gap [Moles/Vol]16 mmol/L9 - 16 mmol/LBon Secours [facility] HealthAST [Catalytic activity/Vol]29 U/L10 - 35 U/LBon [facility]ours [facility] HealthBilirubin [Mass/Vol]0.5 mg/dL0.00 - 1.20 mg/dLBon Secours Mercy HealthCalcium [Mass/Vol] 9.9 mg/dL8.6 - 10.4 mg/dLBon Secours [facility] HealthChloride [Moles/Vol]104 mmol/L 98 - 107 mmol/LBon [facility]y HealthCO2 [Moles/Vol]21 mmol/L20 - 31 mmol/LBon [facility]ours [facility] HealthCreatinine [Mass/Vol]0.7 mg/dL0.50 - 0.90 mg/dLBon [facility]ours [facility]y HealthEst, Glom Filt Rate- PINFBon SecEast [facility] HealthComment on above: These results are not intended [...] therapy that affects renal tubular secretion. Glucose [Mass/Vol]84 mg/dL74 - 99 mg/dLBon [facility] HealthPotassium [Moles/Vol]4.1 mmol/L3.7 - 5.3 mmol/LBon [facility] HealthProtein [Mass/Vol] 8.1 g/dL6.6 - 8.7 g/dLBon [facility] AdministrationSodium [Moles/Vol]141 mmol/L136 - 145 mmol/LBon [facility] AdministrationUrea nitrogen [Mass/Vol]14 mg/dL6 - 20 mg/dL Bon [facility] AdministrationUrea nitrogen/Creatinine [Mass ratio]20 mg/mg9 - 20Bon [facility] AdministrationHemoglobin A1Con 17-46-5584Lqmxfzg glucose Estimated from glycated hemoglobin (Bld) [Mass/Vol]105 mg/dLBon [facility] AdministrationComment on above:The ADA and AACC recommend providing the estimated average glucose result to permit better patient understanding of their HBA1c result. HbA1c (Bld) [Mass fraction]5.3 %4.0 - 6.0 %Bon [facility] HospitalGlucose [Mass/Vol]105 mg/dLNormalCincinnati Children's Hospital [facility] Center on above:Result Comment: The ADA and AACC recommend providing the estimated average glucose result to permit better patient understanding of their HBA1c result.Performed By: #### FE, LIPR, GLYHGB, T4, INSU, VD25, FT3 ####[facility] [address] [place] [address] Lab Director: Bala Borges MD#### CP, CDP, TSH ####[facility] Lab[address] [place] [address] Lab Director: Gage Barraza MDHbA1c (Bld) [Mass fraction]5.3 %Normal4.0-6.0[facility] on above:Performed By: #### FE, LIPR, GLYHGB, T4, INSU, VD25, FT3 ####[facility] [address] [place], [place] [id number] lab Director: Bala Borges MD#### CP, CDP, TSH ####[address] [place] [address] lab Director: Gage Barraza MDNo Panel Informationon 98-46-2239Cxd Veterans Health AdministrationTSHon 04-00-0798ZLQ Qn1.93 m[IU]/LBon [facility] Health AdministrationThyroid Stim. Horm.on 45-12-9421Hnxyzqe Stim. Horm.1.93 uIU/mLNormal0.27-4.20[facility] Clermont HospitalComment on above: Performed By: #### FE, LIPR, GLYHGB, T4, INSU, VD25, FT3 ####[facility] [place], [place] [address] lab Director: Bala Borges MD#### NALINI, CDP, TSH ####[address] , [facility] lab Director: Hill Rickology Office/Clinic Noteon 24-12-8906Rlfvamsem Office/Clinic NotePatient Report: Pt was seen today for hearing aid recheck appointment. Patient has been very happy with the aids which were obtained about a year and a half ago. Recently she noted a rattling noise in the right hearing aid which seems to be worse when streaming. She also noted intermittently in theright hearing aid also more common when streaming. She does feel she hears well with the aids but sometimes things are too soft. Otoscopy: Otoscopy was unremarkable, bilaterally. Hearing aids: Will send aids in for repair and facets are under warrantee. Rattling noise could notbe replicated in office. Patient was fit with loaners with small vented domes. Gain was increased to 100% patient felt this was too loud and this was reduced to 90%. Patient was happy with the sound quality. Plan: Patient would like to picking machine operator repair from front end software engineer and patient will call for further adjustments. No charge Electronically signed by Jackie Butler 08/24/24 16:37 [facility]No Panel Informationon 66-56-2284RILZ ANKLE: 1. Severe soft tissue swelling of [...] to be communicated to a licensed caregiver. [facility] RIS CONSOLIDATEDEXAMINATION: 2 XRAY VIEWS OF THE LEFT ANKLE; [...] effusion is seen. Boehler's angle is maintained. [facility] Seferino Wilkins MD - 08/11/2024 EXAMINATION: 2 XRAY VIEWS [...] to be communicated to a licensed caregiver. [employer]No Panel InformationOrdered By: Seferino Sherie on 08-11-2024 [facility] [employer] Work Phone: XR ANKLE LEFT (2 VIEWS)on 15-94-0489GQ ANKLE LEFT (2 VIEWS)EXAMINATION: 2 XRAY VIEWS OF THE LEFT ANKLE; [...] Signed by: Seferino Rehman MD 08/11/24 Final resultNormalMerMidState Medical CenterXR FOOT LEFT (2 VIEWS)on 25-74-0633PY FOOT LEFT (2 VIEWS)EXAMINATION: 2 XRAY VIEWS OF THE LEFT ANKLE; [...] Signed by: Seferino Rehman MD 08/11/24 Final resultNormalMercy Bristol HospitalXR FOOT RIGHT (2 VIEWS)on 80-22-8932QJ FOOT RIGHT (2 VIEWS)EXAMINATION: 2 XRAY VIEWS OF THE LEFT ANKLE; [...] Signed by: Seferino Rehman MD 08/11/24 Final resultNoBlanchard Valley Health SystemNo Panel Informationon 08-10-2024 Radiology Study observation (narrative)[facility] HospitalXR Foot - right 2 Viewson 16-56-6535Tiuzqarhr Study observation (narrative)[facility] HospitalXR KNEE LEFT (1-2 VIEWS)on 00-49-1548QU KNEE LEFT (1-2 VIEWS)EXAMINATION: TWO XRAY VIEWS OF THE LEFT KNEE [...] Signed by: Zachery Luu MD 08/08/24 Final resultNoAshtabula County Medical Center Knee - left 1 or 2 Viewson 08-08-2024 No acute osseous abnormality of the left knee evident. [facility] CONSOLIDATEDEXAMINATION: TWO XRAY VIEWS OF THE LEFT KNEE 08/06/2024 4:20 pm COMPARISON: None. HISTORY: ORDERING SYSTEM PROVIDED HISTORY: Left knee pain, unspecified chronicity FINDINGS: There is normal alignment of the left knee. There is no fracture or dislocation identified. Joint spaces are preserved. There is no joint effusion present. No chondrocalcinosis or intra-articular loose bodies are identified. [facility] Zachery Young MD - 08/08/2024 EXAMINATION: TWO XRAY VIEWS [...] osseous abnormality of the left knee evident. [facility] [employer]XR Knee - left 1 or 2 ViewsOrdered By: Zachery Luu on 38-70-1428Ddg [employer] Work Phone: XR Knee - left 1 or 2 Viewson 49-92-0058Nldzzdjlt Study observation (narrative)[facility] SweetSlap Uc Medical CenterCult,Urineon 07-22-2024 Cult,UrineSpecimen Description .CLEAN CATCH URINE Culture ESCHERICHIA COLI [...] <=4 SUSCEPTIBLE Tobramycin <=1 SUSCEPTIBLE Trimethoprim/Sulfa <=20 SUSCEPTIBLESusceptibleMercy Health Clermont HospitalComment on above:Performed By: #### URC ####[facility] [address] [place], [place] [address] Lab Director: Bala Borges, [facility] Lab[address] [place] [address] [place] [address] Lab Director: Gage BarrazaHale County Hospitalroscopic Urinalysison 12-47-9345Exmgxguz LM Ql (Urine sed)2+AbnormalNoneBon [facility] DoorDashDickenson Community HospitalCharacter (U)Urine Reflexed to CultureAbnormalNOT REQ.[facility] SweetSlap Uc Medical CenterEpithelial cells LM.HPF (Urine sed) [#/Area]0 TO 2Bon [facility] Medical CenterSangart Uc Medical CenterInterpretation and review of laboratory resultsAbnormalBon [facility]S Medical CenterSangart Uc Medical CenterMucus Ql (Urine sed)TRACEAbnormalNoneBon [facility]S Medical CenterSangart Uc Medical CenterRBC LM.HPF (Urine sed) [#/Area]2 TO 5Bon [facility] Health AdministrationWBC LM.HPF (Urine sed) [#/Area]20 TO 50Bon SecAvita Health System Ontario HospitalBon SecAvita Health System Ontario HospitalUA w/Reflex Cultureon 63-26-3673Fvrbuzild, SemiQt,UrNegativeNormalNEGMercy Bristol HospitalComment on above:Performed By: #### PRERNA, UAX #### [facility] [address] [place], [place] 25[address] Production Sampler: You Rick, Urine3+AbnormalNEGMercy Health Clermont Hospital Comment on above:Performed By: #### PRERNA, UAX #### [facility] [address] [place] [address] Dr[place], [place] 8[address] Production Sampler: EMELIA Ricklarity ()ClearNormalCLEARMercy Health Clermont Hospital Comment on above:Performed By: #### PRERNA, UAX #### [facility] [address] [place] [address] Dr[place], [place] 2167[address] Production Sampler: EMELIA Rickolor (U)YellowNormalYELMerMidState Medical Center Comment on above:Performed By: #### PRERNA, UAX #### [facility] [address] [place] [address] Dr[address] [place], [place] 737[address] Production Sampler: Gage Barraza MDGlucose Ql (U)TRACEAbnormalNEGMercy Bristol HospitalComment on above:Performed By: #### LILIAO, UAX #### [facility] [address] [place], [place] [address] Production Sampler: Gage Barraza MDKetones Ql (U)NegativeNormalNEGMercy Bristol HospitalComment on above:Performed By: #### UMICAO, UAX #### [facility] [address] [place], [place] 2048[address] Production Sampler: Gage Barraza MDLeukocyte esterase Test strip Ql (U)SMALLAbnormal NEGMercy Health Clermont HospitalComment on above:Performed By: #### UMTYRAO, UAX #### [facility] [address] [place] [address] [place] [address] Production Sampler: Gage Barraza MDNitrite,UrPositiveAbnormalNEGMercy Health Clermont Hospital Comment on above:Performed By: #### PRERNA, UAX #### [facility] [address] [place] [address] [place] [address] Production Sampler: BONNIE Rick,Ur6.0Eiigae9.0-9.0Mer[facility] Clermont HospitalComment on above:Performed By: #### PRERNA, UAX #### [address] [place] [address] Production Sampler: BONNIE Rickrotein Ql (U)1+ mg/dLAbnormalNEGMercy Health Clermont HospitalComment on above:Performed By: #### PRERNA, UAX #### [address] [place] [address] Production Sampler: NASEEM Rickpec. [place],Ur1.046Ejzc1.010-1.020Mer[facility] Health Clermont HospitalComment on above:Performed By: #### PRERNA UAX #### [address] [place] [address] Production Sampler: Gage Barraza MDUrobilinogen,UrNormalNormal0.0-1.0Mer[facility] Clermont HospitalComment on above:Performed By: #### PRERNA, UAX #### [address] [place], [place] 6[address] Production Sampler: Gage Barraza MDUrinalysis with Reflex to Cultureon 07-20-2024 Bilirubin Ql (U)NegativeNEGATIVEBon Secours Kindred Hospital DaytonClarity (U)ClearClearBon [facility]ours Kindred Hospital DaytonColor (U)YellowYellowBon [facility] AdministrationGlucose Test strip (U) [Mass/Vol]TRACEAbnormalNEGATIVE mg/dLBon [facility] Hemoglobin Auto test strip Ql (U)3+AbnormalNEGATIVECarilion Stonewall Jackson Hospital Interpretation and review of laboratory resultsAbnormalCar[facility] Hospital Ketones (U) [Mass/Vol]NegativeNEGATIVE mg/dLBon [facility] AdministrationLeukocyte esterase Test strip Ql (U)SMALLAbnormalNEGATIVEBon [facility] AdministrationNitrite Ql (U)PositiveAbnormalNEGATIVEBon [facility] AdministrationpH (U)6 [pH]5.0 - 9.0[facility] HospitalProtein (U) [Mass/Vol]1+AbnormalNEGATIVE mg/dLBon [facility] AdministrationSpecific gravity (U) [Rel density]1.876Xzfo2.010 - 1.020[facility] Jackson HospitalUrobilinogen Qn (U)Normal0.0 - 1.0 EU/dLBon [facility] HospitalUrinalysis,Microon 20-82-3259Jkwiaedv0+AbnormalNONTrinity Health SystemComment on above:Performed By: ###JUAN DYER #### [facility] [address] [place] [address] [place] [address] Production Sampler: Gage Barraza MDEpithelial cells LM Ql (Urine sed)0 TO 5Ozbbvp8-95 [facility] Clermont HospitalComment on above:Performed By: ###JUAN DYER #### [facility] [address] [place] [address] Production Sampler: CARLOS Rickucus StrandsTRACEAbnormalTriHealthComment on above:Performed By: ###JUAN DYER #### [facility] [address] [place] [address] Production Sampler: Gage Barraza MDOther ObservationsUrine Reflexed to Culture AbnormalNREQMercy Health Clermont HospitalComment on above:Performed By: #### JUAN GRAFF #### [facility] [address] [place] [address] Production Sampler: Gini Rick RBC's2 TO 0Ahutgk0-1KqdnnThe Surgical Hospital at [facility]woods Comment on above:Performed By: #### PRERNA, UAX #### [facility] [address] [place] [address] Production Sampler: Gini Rick WBC's20 TO 87Jybstt6-7CcmyjMercy Health Clermont Hospital Comment on above:Performed By: #### PRERNA, UAX #### [facility] [address] [place] [address] Production Sampler: Valentino Rick.beta subuniton 04-07-2024 HCG.beta subunit Qnm[IU]/mLNormal<5[facility] Comment on above:Order Comment: Total HCG measurement is performed using the Andre [place] Access Immunoassay which detects intact HCG and free beta HCG subunit. This test is not indicated for use as a tumor marker. HCG testing is performed using a different test methodology at [facility] other [facility]. Direct result comparison should only be made within the same method.Performed By: #### [id number] #### ALFREDO Wagner ([id number]) [facility] ([facility]) [address] [place], [place] [address]Knes,Urineon 67-62-7614Grwm,UrineSpecimen Description .URINE Culture NO SIGNIFICANT GROWTH Report Status FINAL 04/07/2024[facility] Lodi HospitalComment on above: Performed By: #### UR #### [facility] [address] [place] [address] Production Sampler: Bala Borges MD [facility] [address] [place] [address] Production Sampler: Gage Barraza MDFL LESS THAN 1 HOURon 10-54-7929PR LESS THAN 1 HOURThese images are not reportable by radiology and will not be interpreted by Radiologists.[facility] Memorial Hospitalurgical pathology studyon 28-53-8007Shhuzahm pathology studyPathology report.total SEE COMMENT Surgical Pathology Case: [id number] Authorizing Provider: Thierry Braun DPM Collected: 04/07/2024 1544 Ordering Location: [facility] Received: 04/07/2024 1608 OR Pathologist: Thierry Miranda [...] sectioned and entirely submitted in 3 cassettes. 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 Thingies Uc Medical CenterComment on above:Specimens with hCG levels near the threshold of the test (25 mIU/mL) may give a negative or indeterminate result. In such cases, another test should be performed with a new specimen in 48-72 hours. If early is suspected clinically in this setting, correlation with quantitative serum b-hCG level is suggested. [facility] has confirmed the use of plasma for this test. This has not been cleared or approved by the U.S. Food and Drug Administration. The FDA has determined that such clearance is not necessary. Bon [facility] SiConnectHCG Screen, Bloodon 32-88-5783IHC Screen, BloodNegative NormalNEGMercy Bristol HospitalComment on above:Result Comment: Specimens with hCG levels near the threshold of the test (25 mIU/mL) may give a negative or indeterminate result. In such cases, another test should be performed with a new specimen in 48-72 hours. If early is suspected clinically in this setting, correlation with quantitative serum b-hCG level is suggested. [facility] has confirmed the use of plasma for this test. This has not been cleared or approved by the U.S. Food and Drug Administration. The FDA has determined that such clearance is not necessary.Performed By: #### HCG, LILIAO, UAX #### [facility] [address] [place] [address] [place] [address] Production Sampler: John Rickroscopic Urinalysison 63-39-5144Wirtwccvit cells LM.HPF (Urine sed) [#/Area]2 TO 5Bon SecAvita Health System Ontario HospitalRBC LM.HPF (Urine sed) [#/Area]0 TO 2[facility]red Hospital DaytonWBC LM.HPF (Urine sed) [#/Area]5 TO 10Bon SecAvita Health System Ontario HospitalBon SecAvita Health System Ontario HospitalUA w/Reflex Cultureon 99-49-5907Ppmsnmprm, SemiQt,UrNegativeNormalNEGMercy Health Clermont HospitalComment on above:Performed By: #### HCG, UMICAO, UAX #### [facility] [address] [place] [address] [place] [address] Production Sampler: You Rick, UrineNegativeNormalNEGMercy Health Clermont Hospital Comment on above:Performed By: #### HCG, UMICAO, UAX #### [facility] [address] [place] [address] [place] [address] Production Sampler: Kaykay Rickrity ()ClearNormalCLEARMercy Health Clermont Hospital Comment on above:Performed By: #### HCG, UMICAO, UAX #### [facility] [address] [place] [address] [place] [address] Production Sampler: EMELIA iRckolor (U)YellowNormalYUK Healthcare Comment on above:Performed By: #### HCG, UMICAO, UAX #### [facility] [address] [place] [address] Dr. [place], [place] 366[address] Production Sampler: Gage Barraza MDGlucose Ql (U)TRACEAbnormalNEGMerMidState Medical CenterComment on above:Performed By: #### HCG, UMICAO, UAX #### [address] [place], [place] 54[address]83 Production Sampler: Gage Barraza MDKetones Ql (U)NegativeNormalNEGMercy Pollok HospitalComment on above:Performed By: #### HCG, UMICAO, UAX #### [address] [place] [address] Production Sampler: Gage Barraza MDLeukocyte esterase Test strip Ql (U)SMALLAbnormal NEGMerMidState Medical CenterComment on above:Performed By: #### HCG, UMICAO, UAX #### [address] [place], [place] [address] Production Sampler: Silvana Ricktrite,UrNegativeNormCleveland Clinic [facility] General Comment on above:Performed By: #### HCG, UMICAO, UAX #### [address] [place], [place] [address] Production Sampler: BONNIE Rick,Ur6.2Nioyvm7.0-9.0Mer[facility] Clermont HospitalComment on above:Performed By: #### HCG, UMICAO, UAX #### [address] [place], [place] [address]83 Production Sampler: BONNIE Rickrotein Ql (U)NegativeNormalNEGMerMidState Medical CenterComment on above:Performed By: #### HCG, UMICAO, UAX #### [address] [place] [address] Production Sampler: NASEEM Rickpec. [place],Ur<1.569Nat8.010-1.020[facility]erm[facility] HospitalComment on above:Performed By: #### HCGPRERNA, UAX #### [facility] [address] [place] [address] Production Sampler: Gage Barraza MDUrobilinogen,UrNormalNormal0.0-1.0Mer[facility]erm[facility] HospitalComment on above:Performed By: #### HCGPRERNA, UAX #### [facility] [address] [place] [address] Production Sampler: Gage Barraza MDUrinalysis with Reflex to Cultureon 04-06-2024 Bilirubin Ql (U)NegativeNEGATIVEBon [facility] AdministrationClarity (U)ClearClearBon [facility] AdministrationColor (U)YellowYellowBon [facility] AdministrationGlucose Test strip (U) [Mass/Vol]TRACEAbnormalNEGATIVE mg/dLBon [facility] Hemoglobin Auto test strip Ql (U)NegativeNEGATIVECarilion Stonewall Jackson Hospital Interpretation and review of laboratory resultsAbnormalBon [facility] Ketones (U) [Mass/Vol]NegativeNEGATIVE mg/dLBon SecAvita Health System Ontario HospitalLeukocyte esterase Test strip Ql (U)SMALLAbnormalNEGATIVEBon [facility] AdministrationNitrite Ql (U)NegativeNEGATIVECarilion Stonewall Jackson HospitalpH (U)6.0 [pH]5.0 - 9.0[facility] HospitalProtein (U) [Mass/Vol]NegativeNEGATIVE mg/dLBon [facility] AdministrationSpecific gravity (U) [Rel density]Low1.010 - 1.020[facility] Urobilinogen Qn (U)Normal0.0 - 1.0 EU/dLBon [facility] Heart HospitalUrinalysis,Microon 46-90-6670Bxieswdtoo cells LM Ql (Urine sed)2 TO 0Tricju4-52SxhitMercy Health Clermont HospitalComment on above:Performed By: #### HCG, UMICAO, UAX #### [facility] [address] [place], [place] [address] Production Sampler: Gini Rick RBC's0 TO 5Zbsoet3-6UenrbThe Surgical Hospital at Southwoods Comment on above:Performed By: #### HCG, UMICAO, UAX #### [facility] [address] [place], [facility] Production Sampler: Gini Rick WBC's5 TO 99Thwkao1-9CemzaMercy Health Clermont Hospital Comment on above:Performed By: #### HCG, [facility]ENTERO, UAX #### [facility] [address] [place], [facility] Production Sampler: Gage Barraza MDHCG, Quanton 55-93-0304GFG, Quant1.8 mIU/mLNormal 0-7Mer[facility] Clermont HospitalComment on above:Result Comment: Non-preg premeno <=5 Postmeno <=8 Male <=3 If HCG results do not concur with clinical observations, additional testing to confirm results is recommended.Performed By: #### BHCG #### [facility] [address] [place], [facility] Production Sampler: Gage Barraza MDHCG, Quantitative, Pregnancyon 94-56-2633SIC.beta subunit Qn1.8 m[IU]/mLBon [facility] AdministrationComment on above: Non-preg premeno <=5 Postmeno <=8 Male <=3 If HCG results do not concur with clinical observations, additional testing to confirm results is recommended. Bon [facility], Quanton 10-79-9407OQT, Quant2.2 mIU/mLNormal0-7 [facility]ermont HospitalComment on above:Result Comment: Non-preg premeno <=5 Postmeno <=8 Male <=3 If HCG results do not concur with clinical observations, additional testing to confirm results is recommended.Performed By: #### BHCG ####[facility] [address] [facility] Director: Gage Barraza MDST[facility], Quantitative, Pregnancyon 23-84-8237XQF.beta subunit Qn2.2 m[IU]/mLCarilion Stonewall Jackson HospitalComment on above: Non-preg premeno <=5 Postmeno <=8 Male <=3 If HCG results do not concur with clinical observations, additional testing to confirm results is recommended. [facility] HospitalMRSA isol Org specific cx Ql (Nose)Ordered By: Aniyah Hitchcock on 37-51-0928Jpkacimxmcvedr and review of laboratory resultsNoAdena Pike Medical CenterStaphylococcus sp identified Org specific cx Nom (Unsp spec)No Staphylococcus aureus isolatedSt. Mary's Medical CenterHCG, Quanton 94-16-4041JGO, Quant2.8 mIU/mLNormal0-7[facility]erm[facility] HospitalComment on above:Result Comment: Non-preg premeno <=5 Postmeno <=8 Male <=3 If HCG results do not concur with clinical observations, additional testing to confirm results is recommended.Performed By: #### BHCG ####[facility] Lab[address] [place] [address] , [place] [address] [facility] Director: Gage Barraza MDSTILLW[facility] MED[facility], Quantitative, Pregnancyon 24-39-9348FYZ.beta subunit Qn2.8 m[IU]/mLCarilion Stonewall Jackson HospitalComrehabilitation institute of [place] on above: Non-preg premeno <=5 Postmeno <=8 Male <=3 If HCG results do not concur with clinical observations, additional testing to confirm results is recommended. [facility] Jackson HospitalChoriogonadotropin.beta subuniton 90-39-7003LZD.beta subunit Qn5 m[IU]/mLHigh12 Leonard StreetComment on above:Order Comment: Total HCG measurement is performed using the Andre [place] Access Immunoassay which detects intact HCG and free beta HCG subunit. This test is not indicated for use as a tumor marker. HCG testing is performed using a different test methodology at [facility] than other [facility]. Direct result comparison should only be made within the same method.Result Comment: Low-level positive HCG results can be seen in early , in terri- or post-menopausal females due to normal pituitary HCG production, or with analytic interference. Repeat testing in 48-72 hours can aid in assessing for as results should double in this time period. FSH measurement is recommended in terri- or post- menopausal females as concurrent elevation of FSH can support pituitary production as the source of the HCG elevation.Performed By: #### [id number] #### ALFREDO Wagner ([id number]) [facility] ([facility]) [address] [place] [address]VBO ( test) IA.rapid Ql (U)Ordered By: Ailyn Valentino on 30-49-9616IEC ( test) Ql (U)PositiveAbnoAvita Health System Galion HospitalComrehabilitation institute of [place] on above:Corrected result: Previously reported as NEGATIVE (reference range: NEGATIVE) on 03/18/2024 at 1232EST.Interpretation and review of laboratory resultsAbKnox [facility] IA.rapid Ql (U)on 78-83-5855SCU ( test) Ql (U)PositiveAbnoOhioHealth Grant Medical CenterComment on above:Result Comment: Corrected result: Previously reported as NEGATIVE (reference range: NEGATIVE) on 03/18/2024 at 1232 EST. Performed By: #### [id number] #### ALFREDO Wagner ([id number]) [facility] ([facility]) [address] [place] [address] 41695KPP.beta subunit Qnon 75-51-3021Cugkxvhpkflhoq and review of laboratory resultsAbMercy Health HCG measurement is performed using the Andre Rashida Access Immunoassay which detects intact HCG and free beta HCG subunit. This test is not indicated for use as a tumor marker. HCG testing is performed using a different test methodology at [facility] than other [facility] Direct result comparison should only be made within the same method. [facility] CenterStaphylococcus aureus.methicillin resistant isolateon [id number] isol Org specific cx Ql (Nose)Test: Staphylococcus aureus/MRSA colonization, Culture Specimen Source: Nares/Axilla/Groin Specimen Type: Swab Specimen Date: 03/18/2024 1217 Result Date: 03/20/2024 0736 Result Status: Final result Abnormal: No Resulting Lab: [facility] [address] [facility] [address] CULTURE No Staphylococcus aureus isolatedNoRegency Hospital ToledoComment on above:Performed By: #### [id number] #### MICHOACANO Escalona ([id number]) [facility] ([facility]) [address] [place], [place] [address]fAB, quantitative, pregnancyon 65-43-1708VGG.beta subunit Qn5 m[IU]/mLHighSamaritan HospitalComment on above:Low-level positive HCG results can be seen in early , in terri- or post-menopausal females due to normal pituitary HCG production, or with analytic interference. Repeat testing in 48-72 hourscan aid in assessing for as results should double in this time period. FSH measurement isrecommended in terri- or post-menopausal females as concurrent elevation of FSH can support pituitary production as the source of the HCG elevation.CT Ankle - left WO contraston . 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 2. Up to 6 mm interface widening about the cancellous screw within the lateral talus suggesting loosening. PN RIS CONSOLIDATEDEXAMINATION: CT OF THE LEFT ANKLE WITHOUT CONTRAST [...] soft tissue mass or fluid collection identified. Aaron Childers MD - 10/16/2023 EXAMINATION: CT OF THE [...] screw within the lateral talus suggesting loosening. [facility] HEALTHCT Ankle - left WO contrastOrdered By: Aaron Ladd on [id number] [employer] Work Phone: CT Ankle - left WO contraston [id number] Study observation (narrative)BON [employer] HEALTHXR Ankle - left 2 Viewson 87-42-6455Zcamesjeztxii change as detailed. [facility] CONSOLIDATEDEXAMINATION: XRAY VIEWS OF THE LEFT ANKLE 09/13/2023 2:38 pm COMPARISON: September 12, 2022 HISTORY: ORDERING SYSTEM PROVIDED HISTORY: Left ankle pain, unspecified chronicity FINDINGS: Stable hardware distal tibia and talus with new hardware fusing the tibiotalar articulation. No hardware failure or complication demonstrated. No acute osseous abnormality. Soft tissues unremarkable. [facility] Nirmal Phelan, - 09/14/2023 EXAMINATION: XRAY VIEWS OF THE LEFT ANKLE 09/13/2023 2:38 pm COMPARISON: September 12, 2022 HISTORY: ORDERING SYSTEM PROVIDED HISTORY: Left ankle pain, unspecified chronicity FINDINGS: Stable hardware distal tibia and talus with new hardware fusing the tibiotalar articulation. No hardware failure or complication demonstrated. No acute osseous abnormality. Soft tissues unremarkable. IMPRESSION: Postoperative change as detailed. Jimmy FairlyXR Ankle - left 2 ViewsOrdered By: Nirmal Haskins on [id number] [employer] Work Phone: XR Ankle - left 2 Viewson 85-26-8275Hwzvmccbv Study observation (narrative)Jimmy FairlyCBC with Auto Differentialon 76-85-3507Wzyoqnirs (Bld) [#/Vol]0.04 10*3/uLBON [employer] Basophils/100 WBC (Bld)0 %0 - 2 %Jimmy FairlyEosinophils (Bld) [#/Vol]0.12 10*3/uLBON SECBvents HEALTHEosinophils/100 WBC (Bld)1 %1 - 4 % Jimmy FairlyErythrocyte distribution width (RBC) [Ratio]13.6 %11.8 - 14.4 %[facility] MERCY HEALTHHematocrit (Bld) [Volume fraction]40.8 %36.3 - 47.1 %[facility] HEALTHHemoglobin (Bld) [Mass/Vol]13.8 g/dL11.9 - 15.1 g/dLBON [facility] HEALTHImmature granulocytes (Bld) [#/Vol]0.03 10*3/uLBON [facility] HEALTHImmature granulocytes/100 WBC (Bld)0 %0B[facility] HEALTHInterpretation and review of laboratory resultsAbnormalBON [facility] HEALTHLymphocytes/100 WBC (Bld)24 %Low25 - 45 %[facility] HEALTH Lymphocytes/100 WBC (Bld)2.51 %[facility] MCKITRICK HOSPITALMCH (RBC) [Entitic mass] 28.5 pg25.2 - 33.5 pgBON SECOURS THE JEWISH HOSPITALHC (RBC) [Mass/Vol]33.8 g/dL28.4 - 34.8 g/dLBON SECOHIO STATE UNIVERSITY WEXNER MEDICAL CENTERMCV (RBC) [Entitic vol]84.1 fL82.6 - 102.[address] [facility] HEALTHMonocytes/100 WBC (Bld)8 %2 - 8 %[facility] HEALTHMonocytes/100 WBC (Bld)0.80 %[facility] HEALTHNeutrophils/100 WBC (Bld)67 %High34 - 64 %[facility] MCKITRICK HOSPITALNucleated RBC/100 WBC (Bld) [Ratio]0.0 %0.0 per 100 WBCBON [facility] HEALTHPlatelet mean volume (Bld) [Entitic vol]10.1 fL8.1 - 13.5 fLBON SECOURS [facility] HEALTHPlatelets (Bld) [#/Vol] 418 10*3/uLBON [facility] HEALTHRBC (Bld) [#/Vol]4.85 10*6/uL3.95 - 5.11 m/uL [facility] SECOHIO STATE UNIVERS[facility] WEXNER MEDICAL CENTERSegmented neutrophils/100 WBC (Bld)7.14 %[facility] HEALTHWBC other (Bld) [#/Vol]10.6[facility] HEALTHTEMPE [facility] HEALTHVitamin D 25 Hydroxyon [id number]-wziddohgspdekk D3 [Mass/Vol]26.6 ng/mLLow30.0 - 100.0 ng/mLBON SECBvents HEALTHComment on above: Reference Range: Vitamin D status Range Deficiency <20 ng/mL Mild Deficiency 20-30 ng/mL Sufficiency 30-100 ng/mL Toxicity >100 ng/mL Interpretation and review of laboratory resultsAbnormalBON SECBvents HEALTH [facility] Med[employer] Physician Services CorporationY HEALTHXR hip RT min 2V(w/wo pelvis)*on [id number] hip RT min 2V(w/wo pelvis)*[facility] [address] [place] [address] XRay Report Signed Patient: Blanka Farias MR#: [id number] : 2000 Acct:[id number] Age/Sex: 22 / F ADM Date: 07/26/23 Loc: [facility] Room: Type: [facility] Attending Dr: Hunter Richards DO Copies to: [...] Little Jr., D.OChoco07/26/2023 3:46 PM Dictation Location: [place] [address] Transcribed By: [facility] 07/26/23 1546 Dictated By: zA Little Jr, DO 07/26/23 1540 Signed By: 07/26/23 1546Ohio[facility]in Memorial HospitalUrinalysis with Microscopic on 18-49-0966Geosgixw, UA1+AbnormalNoneBON SECBvents HEALTHBilirubin Urine NegativeNEGATIVEBON SECBvents [facility] CENTERColor, UAYellowYellowBON SECOURS [employer] HEALTHEpithelial Cells UA10 TO 20BON SECBvents HEALTHGlucose Auto test strip (U) [Mass/Vol]NegativeNEGATIVEBON SECFABIEN [employer] HEALTHInterpretation and review of laboratory resultsAbnormalBON SECFABIEN ROUSEY HEALTHKetones (U) [Mass/Vol] NegativeNEGATIVEBON SECFABIEN MERCY HEALTHLeukocyte esterase Auto test strip Ql (U)MODERATEAbnormalNEGATIVEBON SECFABIEN MERCY HEALTHNitrite Auto test strip Ql (U)NegativeNEGATIVEBON SECFABIEN MERCY HEALTHProtein (U) [Mass/Vol]6.0 mg/dL5.0 - 9.0[facility] HEALTHProtein (U) [Mass/Vol]NegativeNEGATIVEB[facility] MERCY HEALTHRBC clumps Auto (Urine sed) [#/Area]0 TO 2BON SECTeamLease Services Specific [place], UALow1.010 - 1.020BON SECFABIEN ROUSEY HEALTHTurbidity UASLIGHTLY CLOUDYAbnormalClearBON SECFABIEN Medaphis Physician Services CorporationBruna HEALTHUrine HgbNegativeNEGATIVEBON SECFABIEN Medap[employer] Physician Services CorporationBruna HEALTHUrobilinogen, UrineNormalNormalBON SECFABIEN ROUSECelly HEALTHWBC, UA20 TO 50BON SECFABIEN [facility] SO[facility] MED[facility] CENTERBruna HEALTHTEMPE ST. [facility] SECFABIEN [employer] HEALTHXR WRIST LEFT (MIN 3 VIEWS)on 36-37-9472Usmimz wrist radiographs [facility] CONSOLIDATEDEXAMINATION: XRAY VIEWS OF THE LEFT WRIST 06/20/2022 3:55 pm COMPARISON: None. HISTORY: ORDERING SYSTEM PROVIDED HISTORY: Pain FINDINGS: Carpal bones and alignment are maintained. Distal radius and ulna are intact. No acute fracture or dislocation. [facility] Nirmal Phelan DO - 06/20/2022 EXAMINATION: XRAY VIEWS OF THE LEFT WRIST 06/20/2022 3:55 pm COMPARISON: None. HISTORY: ORDERING SYSTEM PROVIDED HISTORY: Pain FINDINGS: Carpal bones and alignment are maintained. Distal radius and ulna are intact. No acute fracture or dislocation. 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 X-ray reviewed from CD RIGHT ANKLE [...] Defect (O.C.D.) Talar Dome (more content not included)...NormalOhio State Health SystemXR WRIST RIGHT (MIN 3 VIEWS)on 39-75-6154Rzyapj wrist radiographs [facility] CONSOLIDATEDEXAMINATION: XRAY VIEWS OF THE RIGHT WRIST 03/07/2022 2:33 pm COMPARISON: None. HISTORY: ORDERING SYSTEM PROVIDED HISTORY: Right wrist pain FINDINGS: Carpal bones and alignment are maintained. Distal radius and ulna are intact. No acute fracture or dislocation. [facility] Nirmal Phelan DO - 03/09/2022 EXAMINATION: XRAY VIEWS OF THE RIGHT WRIST 03/07/2022 2:33 pm COMPARISON: None. HISTORY: ORDERING SYSTEM PROVIDED HISTORY: Right wrist pain FINDINGS: Carpal bones and alignment are maintained. Distal radius and ulna are intact. No acute fracture or dislocation. IMPRESSION: Normal wrist radiographs [email or web address] Phone: XR WRIST RIGHT (MIN 3 VIEWS)Ordered By: Nirmal Haskins on [id number] Phone: XR WRIST RIGHT (MIN 3 VIEWS)on [id number] Study observation (narrative)[email or web address] Phone: comprehensive Metabolic Panelon 70-57-1659Jnezvpk [Mass/Vol]4.9 g/dL3.5 - 5.2 g/dLBON CollectaAlbumin/Globulin [Mass ratio]1.5 {ratio}1.0 - 2.5BON CollectaALP (Bld) [Catalytic activity/Vol]64 U/L35 - 104 U/LBON CollectaALT [Catalytic activity/Vol]16 U/L5 - 33 U/LBON [facility] MERCY HEALTHAnion gap [Moles/Vol]13 mmol/L9 - 17 mmol/LBON [facility] MERCY HEALTHAST [Catalytic activity/Vol]27 U/L NINF - 32 U/LBON [facility] MERCY HEALTHBilirubin [Mass/Vol]0.3 mg/dL0.3 - 1.2 mg/dLBON [facility] MERCY HEALTHCalcium [Mass/Vol]9.6 mg/dL8.6 - 10.4 mg/dLBON [facility] MERCY HEALTHChloride [Moles/Vol]103 mmol/L98 - 107 mmol/LBON SECOURS Medaphis Physician Services CorporationY HEALTHCO2 [Moles/Vol]25 mmol/L20 - 31 mmol/LBON SECOURS [employer] HEALTH Creatinine [Mass/Vol]0.59 mg/dL0.50 - 0.90 mg/dLBON SECOURS TGR BioSciencesGFR/1.73 sq M.predicted MDRD (S/P/Bld) [Vol rate/Area]- LIFEPOINT HOSPITALSTapHome Comment on above: Effective Jan 29, 2022 [...] therapy that affects renal tubular secretion. Glucose [Mass/Vol]75 mg/dL70 - 99 mg/dLBON SECOURS TGR BioSciencesInterpretation and review of laboratory resultsAbnormalBON [facility] MERCY HEALTHPotassium [Moles/Vol]3.8 mmol/L3.7 - 5.3 mmol/LBON SECOURS Medaphis Physician Services CorporationY HEALTHProtein [Mass/Vol] 8.1 g/dL6.4 - 8.3 g/dLBON [facility] MERCY HEALTHSodium [Moles/Vol]141 mmol/L135 - 144 mmol/LBON SECOURS Medaphis Physician Services CorporationY HEALTHUrea nitrogen (BldV) [Mass/Vol]15 mg/dL6 - 20 mg/dLBON [facility]RS MERCY HEALTHUrea nitrogen/Creatinine (Bld) [Mass ratio]61Zohm6 - 20BON SEC[facility]ERY HEALTHB[facility] HEALTHUrinalysis with Microscopic on 15-80-3630Zbofuyeh, UA1+AbnormalNoneBON [facility]RS MERCY HEALTHBilirubin Urine NegativeNEGATIVEBON [facility] MERCY HEALTHColor, UAYellowYellowBON SECOURS MERCY HEALTHEpithelial Cells UA0 TO 2B[facility] HEALTHGlucose, UrTRACEAbnormal NEGATIVEBON [facility]RS MERCY HEALTHInterpretation and review of laboratory results AbnormalBON [facility]RS MERCY HEALTHKetones Ql (U)NegativeNEGATIVEB[facility] MERCY HEALTHLeukocyte esterase Test strip Ql (U)TRACEAbnormalNEGATIVEBON [facility]RS MERCY HEALTHNitrite, UrineNegativeNEGATIVEB[facility] MERCY HEALTHpH, UA6.05.0 - 9.0 [facility] HEALTHProtein, UATRACEAbnormalNEGATIVEBON [facility]ALTH RBC, UA50 TO 100B[facility] HEALTHSpecific [place], UA1.0201.010 - 1.020 [facility] HEALTHTurbidity UASLIGHTLY CLOUDYAbnormalClearBON SECOURS MERCY HEALTHUrine Hgb3+AbnormalNEGATIVEBON [facility]RS MERCY HEALTHUrobilinogen, UrineNormalNormalBON [facility]RS MERCY HEALTHWBC, UA5 TO 10B[facility]ALTH B[facility] MERCY HEALTHCNOVon 59-40-0746BDQCMcyjth Visit (NISHI) DINORABLANKA FLANAGAN ([id number]) 4 F Date Time Provider Department 02/07/22 11:00 AM RK RENDON During your visit today, we recorded the following information about you: Rk Rendon DPM 02/07/2022 2:48 PM Signed [facility] Department of Orthopedics [facility] Orth[facility] Surgery Name: Blanka Farias Date [...] Radiographs: Right ankle radiographs from 01/12/2022 from [facility] reveal unusual shape to the dorsal talar dome with almost some lateral tilt A right ankle MRI performed on 01/18/2022 from [facility]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 [...] Rk Rendon DPM Referring Provider: LOUISE LEMOS [[id number]] Allergies As of Date: 02/07/2022 Noted Allergy Reaction NTXSCFOU-JYNCVIFRI-NV 03/11/2013 14 - Other: See Comments Comments: [...] Text Encounter Status:Closed by RK RENDON on [facility]/07/22[facility] CONon [id number] ANKLE RT WO CONEXAM: MRI ANKLE RT WO CON HISTORY: Right ankle pain COMPARISON: X-rays [...] Electronically authenticated by: GAGE JACK Date: 2022-01-20 17:17[facility] AUTO DIFFon 77-26-6252JCJS #0.1 103/ulNormal0.0-0.1Holzer HospitalComment on above:Performed By: #### DINO WATKINS #### [facility] [address] [place] [address] [address] Bertha DuncanBasophils/100 WBC (Bld)0.5 %Normal0.2-2.0The [facility] Comment on above:Performed By: #### DINO WATKINS #### [facility] [address] [place] [address] Dr. Bertha Younger #0.3 103/ulNormal0.0-0.7The [facility] CenterComment on above: Performed By: #### JAREN WATKINSR #### [facility] [address] [place] [address] Dr. Bertha Del Rioosinophils/100 WBC (Bld)2.1 %Normal0.9-7.0The [facility] Comment on above:Performed By: #### DINO WATKINS #### [facility] [address] [place] [address] Dr. Bertha Del Riorythrocyte distribution width (RBC) [Ratio]13.8 %Nodpap48.0-15.0 The [facility] CenterComment on above:Performed By: #### DINO WATKINS #### [facility] [address] [place] [address] Dr. Bertha DuncanHematocrit (Bld) [Volume fraction]39.1 %Iksijf90.0-48.0The [facility] CenterComment on above:Performed By: #### DINO WATKINS #### [facility] [address] [place] [address] Dr. Bertha DuncanHemoglobin (Bld) [Mass/Vol]13.1 g/iZFiksih77.0-16.0The [facility] CenterComment on above:Performed By: #### JAREN WATKINSR #### [facility] [address] [place] [address] Dr. Bertha Bender #0.05 10e3/ulCritically high0.00-0.03The [facility] Comment on above:Performed By: #### DINO WATKINS #### [facility] [address] [place] [address] Dr. Bertha Bender %0.4 %Normal0.0-0.5The [facility] CenterComment on above: Performed By: #### ROLAND UARMICR #### [facility] [address] [place] [address] Dr. Bertha Anthony #3.1 103/ulNormal1.2-3.8The [facility] CenterComment on above:Performed By: #### ROLAND UARMICR #### [facility] [address] [place] [address] Dr. Bertha Mohanhocytes/100 WBC (Bld)23.9 %Ejntgu41.5-60.0The [facility] CenterComment on above:Performed By: #### ROLAND UARMICR #### [facility] [address] [place] [address] Dr. Bertha WhiteUAL DIFF REQNONormalThe [facility] CenterComment on above: Performed By: #### ROLAND UARMICR #### [facility] [address] [place] [address] Dr. Bertha Mann (RBC) [Entitic mass]27.1 uqYvqqhf84.7-34.0The [facility] CenterComment on above:Performed By: #### ROLAND UARMICR #### [facility] [address] [place] [address] Dr. Bertha Mann (RBC) [Mass/Vol]33.5 g/vOJmqmeu51.9-35.2The [facility] CenterComment on above:Performed By: #### ROLAND UARMICR #### [facility] [address] [place] [address] Dr. Bertha Mann (RBC) [Entitic vol]81.0 dWBtxdzx01.0-99.0The [facility] CenterComment on above:Performed By: #### ROLAND UARMICR #### [facility] [address] [place] [address] Dr. Bertha Chavez #0.8 103/ulNormal0.3-0.8The [facility] CenterComment on above:Performed By: #### ROLAND UARMICR #### [facility] [address] [place] [address] Dr. Bertha Linaresocytes/100 WBC (Bld)5.8 %Normal1.7-12.0The [facility] Comment on above:Performed By: #### ROLAND UARMICR #### [facility] [address] [place] [address] Dr. Bertha Huang #8.7 103/ulCritically high1.4-6.5The [facility] Comment on above:Performed By: #### ROLAND UARMICR #### [facility] [address] [place] [address] Dr. Bertha Osbornutrophils/100 WBC (Bld)67.3 %Pbbfne21.0-75.0The [facility] CenterComment on above:Performed By: #### ROLAND UARMICR #### [facility] [address] [place] [address] Dr. Bertha Montoya mean volume (Bld) [Entitic vol]9.8 fLNormal9.5-13.5The [facility] CenterComment on above:Performed By: #### ROLAND UARMICR #### [facility] [address] [place] [address] Dr. Bertha DuncanPLT369 103/tlPcrkog234-999Iht [facility] CenterComment on above: Performed By: #### ROLAND UARMICR #### [facility] [address] [place] [address] Dr. Bertha DuncanRBC4.83 106/ulNormal4.20-5.40The [facility] CenterComment on above:Performed By: #### ROLAND UARMICR #### [facility] [address] [place] [address] Dr. Yilan YdnzkHID85.9 103/ulCritically high4.0-11.0The [facility] CenterComment on above:Performed By: #### EDITH WATKINSRMICR #### [facility] [address] [place] [address] Dr. Bertha Samson URINEon 90-34-9544HJTNTDA URINECulture Observations: HEAVY GROWTH OF MIXED GENITAL BEAU. NO POTENTIAL PATHOGENS SEEN.NormalThe Bedford HospitalComment on above:Performed By: #### EDITH WATKINSRMICR #### [facility] [address] [place] [address] Dr. Bertha DuncanPROF 14(COMP METB)on 98-98-4729Tmrxsgh [Mass/Vol]4.1 g/dLNormal 3.4-5.0The [facility] CenterComment on above:Performed By: #### CMP #### [facility] [address] [place] [address] Dr. Bertha DuncanAlbumin/Globulin [Mass ratio]1.0 {ratio}NormalThe [facility] CenterComment on above:Performed By: #### CMP #### [facility] [address] [place] [address] Dr. Bertha Matta [Catalytic activity/Vol]57 U/PGmvbau55-993Byc [facility] Hospitalment on above:Performed By: #### CMP #### [facility] [address] [place] [address] Dr. Bertha Almonte [Catalytic activity/Vol]19 U/JJnuhme72-55Tft [facility] CenterComment on above:Performed By: #### CMP #### [facility] [address] [place] [address] Dr. Bertha Lee gap [Moles/Vol]12.5 mmol/LNormalThe [facility] on above:Performed By: #### CMP #### [facility] [address] [place] [address] Dr. Bertha Pierre [Catalytic activity/Vol]23 U/MAuiftl31-02Xmh [facility] CenterComment on above:Performed By: #### CMP #### [facility] [address] [address] [address] Bertha DuncanBilirubin [Mass/Vol]0.2 mg/dLNormal0.2-1.0The [facility] Comment on above:Performed By: #### CMP #### [facility] [address] [address] [address] Bertha DuncanCalcium [Mass/Vol]9.3 mg/dLNormal8.5-10.1The [facility] Comment on above:Performed By: #### CMP #### [facility] [address] [address] [address] Bertha DuncanChloride [Moles/Vol]104 mmol/XPxmiod53-055Zsy [facility] Comment on above:Performed By: #### CMP #### [facility] [address] [address] [address] Bertha DuncanCO2 [Moles/Vol]23.2 mmol/DXxcqum72.0-32.0The [facility] Comment on above:Performed By: #### CMP #### [facility] [address] [address] [address] Bertha DuncanCreatinine [Mass/Vol]0.62 mg/dLNormal0.55-1.02The [facility] CenterComment on above:Performed By: #### CMP #### [facility] [address] [address] [address] Bertha Del RioGFR-AF NIGERIAN>60Normal>=60The [facility] CenterComment on above:Performed By: #### CMP #### [facility] [address] [address] [address] Bertha Del RioGFR-NON AF NIGERIAN>60Normal>=60The [facility] CenterComment on above:Performed By: #### CMP #### [facility] [address] [place] [address] Dr. Bertha DuncanGlobulin (S) [Mass/Vol]4.0 g/dLNormalThe [facility] CenterComment on above:Performed By: #### CMP #### [facility] [address] [address] [address] Bertha DuncanGlucose [Mass/Vol]83 mg/bOPswkom64-635Zvs [facility] Comment on above:Performed By: #### CMP #### [facility] [address] [address] [address] Bertha DuncanPotassium [Moles/Vol]3.7 mmol/LNormal3.5-5.1The [facility] Comment on above:Performed By: #### CMP #### [facility] [address] [place] [address] Dr. Bertha DuncanProtein [Mass/Vol]8.1 g/dLNormal6.4-8.2The [facility] Comment on above:Performed By: #### CMP #### [facility] [address] [place] [address] Dr. Bertha DuncanSodium [Moles/Vol]136 mmol/WWrraiw177-329Npb [facility] Comment on above:Performed By: #### CMP #### [facility] [address] [place] [address] Dr. Bertha DuncanUrea nitrogen [Mass/Vol]16.0 mg/dLNormal6.4-19.3TCleveland Clinic Akron GeneralComment on above:Performed By: #### CMP #### [facility] [address] [place] [address] Dr. Bertha Lara nitrogen/Creatinine [Mass ratio]25.8 mg/mgNormalThCommunity Regional Medical CenterComment on above:Performed By: #### CMP #### [facility] [address] [place] [address] Dr. Bertha Moreno RANDOM W/MICROSCOPICon [id number] SEENNormalNONE SEENHolzer HospitalComment on above:Performed By: #### UAMIC #### [facility] [address] [place] [address] Dr. Bertha DuncanBilirubin Ql (U)NegativeNormalNEGATIVEThe [facility] Comment on above:Performed By: #### UAMIC #### [facility] [address] [place] [address] Dr. Bertha Robledo SEENNormalNONE SEENHolzer HospitalComment on above:Performed By: #### UAMIC #### [facility] [address] [address] [address] Bertha Camacho (U)CLEARNormalCLEARHolzer HospitalComment on above: Performed By: #### UAMIC #### [facility] [address] [address] [address] Bertha Ndiaye (U)LT. YELLOWNormalYELLOWHolzer HospitalComment on above:Performed By: #### UAMIC #### [facility] [address] [address] [address] Bertha DuncanCrystals LM Nom (Urine sed)NONE SEENNormalNONE SEENHolzer HospitalComment on above:Performed By: #### UAMIC #### [facility] [address] [place] [address] Dr. Stone ChangEpithelial cells LM Ql (Urine sed)MODERATEAbnormalNONE SEEN /RARE The [facility] CenterComment on above:Performed By: #### UAMIC #### [facility] [address] [address] [address] Bertha DuncanGlucose Ql (U)NegativeNormalNEGATIVEHolzer HospitalComment on above:Performed By: #### UAMIC #### [facility] [address] [address] [address] Bertha DuncanHemoglobin Ql (U)NegativeNormalNEGATIVEMain Campus Medical Center on above:Performed By: #### UAMIC #### [facility] [address] [address] [address] Bertha DuncanKetones Ql (U)NegativeNormalNEGATIVEHolzer HospitalComment on above:Performed By: #### UAMIC #### [facility] [address] [address] [address] Bertha DuncanLEUKOCYTESTRACEAbnormalNEGATIVEHolzer HospitalComrehabilitation institute of [place] on above:Performed By: #### UAMIC #### [facility] [address] [place] [address] Dr. Bertha AlexanderCOUSPAUL SEENNormalNONE SEENThe [facility] CenterComment on above:Performed By: #### UAMIC #### [facility] [address] [place] [address] Dr. Bertha Tripletttrite Ql (U)NegativeNormalNEGATIVEThe [facility] CenterComment on above:Performed By: #### UAMIC #### [facility] [address] [place] [address] Dr. Bertha DuncanpH (U)6.0 [pH]Normal5-9The [facility] CenterComment on above: Performed By: #### UAMIC #### [facility] [address] [place] [address] Dr. Bertha DuncanRBCNONE SEENAbnormal0-2The [facility] CenterComment on above: Performed By: #### UAMIC #### [facility] [address] [place] [address] Dr. Bertha DuncanSPEC GRAVITY1.164Nlfpek0.005-<=1.025The [facility] CenterComment on above:Performed By: #### UAMIC #### [facility] [address] [place] [address] Dr. Bertha Moreno PROTEINNegativeNormalNEGATIVE/ TRACEThe [facility] Comment on above:Performed By: #### UAMIC #### [facility] [address] [place] [address] Dr. Bertha Bellbilinogen Qn (U)0.2 {[place]'U}/dLNormal0.2 - 1.0The [facility] CenterComment on above:Performed By: #### UAMIC #### [facility] [address] [place] [address] Dr. Bertha DuncanWBC0-2AbnormalNONE SEENThe [facility] CenterComment on above: Performed By: #### UAMIC #### [facility] [address] [place] [address] Dr. Bertha DuncanUrinalysis with Microscopicon [id number], UA1+Abnormal NoneBON SECOURS MERCY HEALTHBilirubin UrineNegativeNEGATIVEBON SECOURS [facility] HEALTHColor, UAYellowYellowBON SECOURS MERCY HEALTHEpithelial Cells UA5 TO 10B[facility] HEALTHGlucose, Ur1+AbnormalNEGATIVEBON SECOURS MERCY [facility]ALTH Interpretation and review of laboratory resultsAbnormalBON SECOU[facility] Ketones Ql (U)NegativeNEGATIVEBON SECOURS MERCY HEALTHLeukocyte esterase Test strip Ql (U)MODERATEAbnormalNEGATIVEBON SECOURS [facility]ERY HEALTHNitrite, Urine NegativeNEGATIVEBON SECOURS [facility]ERY HEALTHpH, UA6.55 - 9[facility] Protein, UANegativeNEGATIVEBON SECOURS MERCY HEALTHRBC, UA0 TO 2B[facility] HEALTHSpecific [place], UA1.0101.01 - 1.02[facility] Turbidity UASLIGHTLY CLOUDYAbnormalClearBON SECOURS K[facility]ALTH [facility]ERY HEALTHUrine Hgb NegativeNEGATIVEBON SECOURS [facility]ERY HEALTHUrobilinogen, UrineNormalNormalBON SECOURS [facility]ALTH [facility]ERY HEALTHWBC, UA5 TO 10B[facility] HEALTHBON SECOU[facility] – [facility] CENTERY HEALTHCULTURE URINEon [id number] URINECulture Observations: NO GROWTH.NormalThe [facility] CenterComment on above:Performed By: #### DINO WATKINS #### [facility] [address] [address] [address] Bertha DuncanPROF CHEM 8 (BAS METB)on [id number] gap [Moles/Vol]11.2 mmol/LNormalThe [facility] CenterComment on above:Performed By: ###DINO AVELAR #### [facility] [address] [address] [address] Bertha DuncanCalcium [Mass/Vol]9.0 mg/dLNormal8.5-10.1The [facility] Comment on above:Performed By: #### DINO WATKINS #### [facility] [address] [address] [address] Bertha DuncanChloride [Moles/Vol]106 mmol/JPzxuzj76-694Pra [facility] Comment on above:Performed By: #### ROLAND UARMICR #### [facility] [address] [address] [address] Bertha DuncanCO2 [Moles/Vol]25.7 mmol/CKlndqa64.0-32.0The [facility] Comment on above:Performed By: #### ROLAND UARMICR #### [facility] [address] [place] [address] Dr. Bertha DuncanCreatinine [Mass/Vol]0.74 mg/dLNormal0.55-1.02The [facility] CenterComment on above:Performed By: #### ROLAND UARMICR #### [facility] [address] [place] [address] Dr. Bertha Del RioGFR-AF NIGERIAN>60Normal>=60The [facility] CenterComment on above:Performed By: #### ROLAND UARMICR #### [facility] [address] [place] [address] Dr. Bertha Del RioGFR-NON AF NIGERIAN>60Normal>=60The [facility] CenterComment on above:Performed By: #### ROLAND UARMICR #### [facility] [address] [place] [address] Dr. Bertha DuncanGlucose [Mass/Vol]93 mg/bPJthjnb26-749DnaHolzer Hospital Comment on above:Performed By: #### ROLAND UARMICR #### [facility] [address] [place] [address] Dr. Bertha DuncanPotassium [Moles/Vol]3.9 mmol/LNormal3.5-5.1The [facility] Comment on above:Performed By: #### ROLAND UARMICR #### [facility] [address] [place] [address] Dr. Bertha DuncanSodium [Moles/Vol]139 mmol/RVfusvj505-687Iud [facility] Comment on above:Performed By: #### ROLAND UARMICR #### [facility] [address] [address] [address] Bertha Lara nitrogen [Mass/Vol]8.0 mg/dLNormal6.4-19.3The [facility] CenterComment on above:Performed By: #### EDITH WATKINSRMICR #### [facility] [address] [address] [address] Bertha Lara nitrogen/Creatinine [Mass ratio]10.8 mg/mgNormalThe [facility] CenterComment on above:Performed By: #### ROLAND UARMICR #### [facility] [address] [address] [address] Bertha Avilez RAND URINEon 82-85-6989AD PROT12.1 mg/dLCritically high <=11.9Holzer HospitalComment on above:Performed By: #### PROTU #### [facility] [address] [place] [address] Dr. Bertha Moreno RANDOMon 97-92-7842Xcqgxoyns Ql (U)NegativeNormalNEGATIVEHolzer HospitalComment on above:Performed By: #### UA #### [facility] [address] [place] [address] Dr. Bertha Camacho (U)CLEARNormalCLEARHolzer HospitalComrehabilitation institute of [place] on above: Performed By: #### UA #### [facility] [address] [place] [address] Dr. Bertha Ndiaye (U)YELLOWNormalYELLOWHolzer HospitalComment on above: Performed By: #### UA #### [facility] [address] [place] [address] Dr. Bertha DuncanGlucose Ql (U)500 mg/dlAbnormilNEGHolzer Hospital Comment on above:Performed By: #### UA #### [facility] [address] [place] [address] Dr. Bertha DuncanHemoglobin Ql (U)NegativeNormalNEGHolzer Hospital Comment on above:Performed By: #### UA #### [facility] [address] [place] [address] Dr. Bertha Mccabe Ql (U)NegativeNormalNEGATIVEThe [facility] CenterComment on above:Performed By: #### UA #### [facility] [address] [place] [address] Dr. Bertha DyeOCYTESTRACEAbnormalNEGATIVEThe [facility] CenterComment on above:Performed By: #### UA #### [facility] [address] [place] [address] Dr. Bertha Tripletttrite Ql (U)NegativeNormalNEGATIVEThe [facility] CenterComment on above:Performed By: #### UA #### [facility] [address] [place] [address] Dr. Bertha DuncanpH (U)6.0 [pH]Normal5-9The [facility] CenterComment on above: Performed By: #### UA #### [facility] [address] [place] [address] Dr. Bertha DuncanSPEC GRAVITY1.172Rmhfhl7.005-<=1.025The [facility] CenterComment on above:Performed By: #### UA #### [facility] [address] [place] [address] Dr. Bertha Moreno PROTEINNegativeNormalNEGATIVE/ TRACEThe [facility] on above:Performed By: #### UA #### [facility] [address] [place] [address] Dr. Bertha Bellbilinogen Qn (U)0.2 {[place]'U}/dLNormal0.2 - 1.0The [facility] CenterComment on above:Performed By: #### UA #### [facility] [address] [place] [address] Dr. Bertha Samson URINEon 52-15-7194RBUTKYP URINEIsolate 1 Staphylococcus haemolyticus >100,000 cfu/mL of ORGANISM 1 Staphylococcus haemolyticus ANTIBIOTIC M.I.C RX STATUS Beta-Lactamase Pos POS F Cefoxitin Screen Pos POS F Benzylpenicillin >=0.5 R F Gentamicin >=16 R F Ciprofloxacin >=8 R F Levofloxacin >=8 R F Moxifloxacin 2 S F Inducible Clindamycin Resistance Neg NEG F Quinupristin/Dalfopristin <=0.25 S F Linezolid 2 S F Vancomycin 1 S F Tetracycline <=1 S F Nitrofurantoin <=16 S F Rifampicin <=0.5 S F Trimethoprim/Sulfamethoxazole 160 R F Oxacillin >=4 R FNormalThe [facility] CenterComment on above:Performed By: #### ROLAND UARMICR #### [facility] [address] [place] [address] Dr. Bertha Baxter AUTO DIFFon [id number] #0.1 103/ulNormal0.0-0.1The [facility] CenterComment on above:Performed By: #### CBC #### [facility] [address] [place] [address] Dr. Bertha DuncanBasophils/100 WBC (Bld)0.5 %Normal0.2-2.0[facility] Comment on above:Performed By: #### CBC #### [facility] [address] [address] [address] Bertha Younger #0.2 103/ulNormal0.0-0.7The [facility] CenterComment on above: Performed By: #### CBC #### [facility] [address] [place] [address] Dr. Bertha Del Rioosinophils/100 WBC (Bld)1.9 %Normal0.9-7.0[facility] Comment on above:Performed By: #### CBC #### [facility] [address] [place] [address] Dr. Bertha Del Riorythrocyte distribution width (RBC) [Ratio]12.2 %Leqodz56.0-15.0 Holzer HospitalComment on above:Performed By: #### CBC #### [facility] [address] [place] [address] Dr. Bertha DuncanHematocrit (Bld) [Volume fraction]39.0 %Ggacim04.0-48.0The [facility] CenterComment on above:Performed By: #### CBC #### [facility] [address] [place] [address] Dr. Bertha DuncanHemoglobin (Bld) [Mass/Vol]12.7 g/dXXlyemy45.0-16.0The [facility] CenterComment on above:Performed By: #### CBC #### [facility] [address] [place] [address] Dr. Bertha Bender #0.02 10e3/ulNormal0.00-0.03The [facility] CenterComment on above:Performed By: #### CBC #### [facility] [address] [place] [address] Dr. Bertha Bender %0.2 %Normal0.0-0.5The [facility] CenterComment on above: Performed By: #### CBC #### [facility] [address] [place] [address] Dr. Bertha Anthony #3.1 103/ulNormal1.2-3.8The [facility] CenterComment on above:Performed By: #### CBC #### [facility] [address] [place] [address] Dr. Bertha Mohanhocytes/100 WBC (Bld)29.9 %Vuveul01.5-60.0The [facility] CenterComment on above:Performed By: #### CBC #### [facility] [address] [place] [address] Dr. Bertha WhiteUAL DIFF REQNONormalThe [facility] CenterComment on above: Performed By: #### CBC #### [facility] [address] [place] [address] Dr. Bertha Mann (RBC) [Entitic mass]28.0 diXxaktx66.7-34.0The [facility] CenterComment on above:Performed By: #### CBC #### [facility] [address] [place] [address] Dr. Bertha Mann (RBC) [Mass/Vol]32.6 g/jJJbyfag35.9-35.2The [facility] HospitalComment on above:Performed By: #### CBC #### [facility] [address] [address] [address] Bertha MannV (RBC) [Entitic vol]85.9 fEIokuuu00.0-99.0The [facility] CenterComment on above:Performed By: #### CBC #### [facility] [address] [address] [address] Bertha Chavez #0.7 103/ulNormal0.3-0.8The [facility] HospitalComment on above:Performed By: #### CBC #### [facility] [address] [place] [address] Dr. Bertha Linaresocytes/100 WBC (Bld)7.0 %Normal1.7-12.0The [facility] on above:Performed By: #### CBC #### [facility] [address] [place] [address] Dr. Bertha OsbornUT #6.3 103/ulNormal1.4-6.5The [facility] CenterComment on above:Performed By: #### CBC #### [facility] [address] [place] [address] Dr. Bertha Osbornutrophils/100 WBC (Bld)60.5 %Adrogp04.0-75.0The [facility] CenterComment on above:Performed By: #### CBC #### [facility] [address] [place] [address] Dr. Bertha Godinezlet mean volume (Bld) [Entitic vol]9.6 fLNormal9.5-13.5The [facility] CenterComment on above:Performed By: #### CBC #### [facility] [address] [place] [address] Dr. Bertha DuncanPLT393 103/htAhocnr417-493Fcf [facility] CenterComment on above: Performed By: #### CBC #### [facility] [address] [place] [address] Dr. Bertha DuncanRBC4.54 106/ulNormal4.20-5.40The [facility] CenterComment on above:Performed By: #### CBC #### [facility] [address] [address] [address] Bertha DuncanWBC10.4 103/ulNormal4.0-11.0Holzer HospitalComment on above:Performed By: #### CBC #### [facility] [address] [address] [address] Bertha Moreno (CLEAN/CATCH) MICROSCOPIC IF INDICATEon 93-12-1665Uqtyugdyx Ql (U)NegativeNormalNEGATIVEHolzer HospitalComment on above:Performed By: #### UMICRO UARMICR #### [facility] [address] [address] [address] Bertha Camacho (U)SL CLOUDYAbnormalCLEARThe [facility] CenterComment on above:Performed By: #### ROLAND UARMICR #### [facility] [address] [address] [address] Bertha Ndiaye (U)LT. YELLOWNormalYELLOWHolzer HospitalComment on above:Performed By: #### UMICRO UARMICR #### [facility] [address] [place] [address] Dr. Bertha DuncanGlucose Ql (U)100 mg/dlAbfulton medical center- fultonalUniversity Hospitals [facility]aug[facility] Comment on above:Performed By: #### UMICRO UARMICR #### [facility] [address] [place] [address] Dr. Bertha DuncanHemoglobin Ql (U)NegativeNormalNEGHolzer Hospital Comment on above:Performed By: #### UMICRO UARMICR #### [facility] [address] [place] [address] Dr. Bertha DuncanKetones Ql (U)NegativeNormalNEGATIVEHolzer HospitalComment on above:Performed By: #### UMICRO, UARMICR #### [facility] [address] [place] [address] Dr. Bertha DuncanLEUKOCYTESTRACEAbnormalNEGHolzer HospitalComment on above:Performed By: #### ROLAND UARMICR #### [facility] [address] [address] [address] Bertha Adams Ql (U)NegativeNormalNEGATIVEThe [facility] CenterComment on above:Performed By: #### ROLAND UARMICR #### [facility] [address] [address] [address] Bertha Hager (U)7.0 [pH]Normal5-9The [facility] CenterComment on above: Performed By: #### ROLAND UARMICR #### [facility] [address] [place] [address] Dr. Bertha DuncanSPEC GRAVITY1.141Afeuqz4.005-<=1.025The [facility] CenterComment on above:Performed By: #### EDITH WATKINSRMICR #### [facility] [address] [place] [address] Dr. Bertha Moreno PROTEINNegativeNormalNEGATIVE/ TRACEThe [facility] Comment on above:Performed By: #### EDITH WATKINSRMICR #### [facility] [address] [place] [address] Dr. Bertha Kinney MICRO INDINDICATEDNormalThCommunity Regional Medical CenterComment on above: Performed By: #### ROLAND UARMICR #### [facility] [address] [address] [address] Bertha Wray Qn (U)0.2 {[place]'U}/dLNormal0.2 - 1.0The [facility] CenterComment on above:Performed By: #### ROLAND UARMICR #### [facility] [address] [place] [address] Dr. Bertha Grady MICROSCOPIC ONLYon 10-04-5992VGHGCCBAEXSQLXolmkzacBJGT SEEN [facility] HospitalComment on above:Performed By: #### ROLAND UARMICR #### [facility] [address] [place] [address] Dr. Bertha Franklin identified Cx Nom (U)INDICATEDNoalThCommunity Regional Medical CenterComment on above:Performed By: #### ROLAND UARMICR #### [facility] [address] [place] [address] Dr. Bertha Robledo SEENNormalNONE SEENHolzer HospitalComment on above:Performed By: #### ROLAND UARMICR #### [facility] [address] [address] [address] Bertha Hensonystals LM Nom (Urine sed)NONE SEENNormalNONE SEENMercy Health on above:Performed By: #### EDITH WATKINSRMICR #### [facility] [address] [place] [address] Dr. Stone ChangEpithelial cells LM Ql (Urine sed)RARENormalNONE SEEN /RAREThe [facility] CenterComment on above:Performed By: #### ROLAND UARMICR #### [facility] [address] [place] [address] Dr. Bertha LaubnormalNONE SEENHolzer HospitalComrehabilitation institute of [place] on above:Performed By: #### EDITH WATKINSRMICR #### [facility] [address] [place] [address] Dr. Bertha MillerZcgnjYGO8-7Eqduja0-5Gfl [facility] on above:Performed By: #### EDITH WATKINSRMICR #### [facility] [address] [place] [address] Dr. Bertha DuncanWBC2-5AbnormalNONHossein SEENMercy Health on above: Performed By: #### ROLAND UARMICR #### [facility] [address] [place] [address] Dr. Bertha Samson URINEon 60-61-4595PFAVVEK URINECulture Observations: HEAVY GROWTH OF MIXED GENITAL BEAU. NO POTENTIAL PATHOGENS SEEN.NormalThe [facility] CenterComment on above:Performed By: #### UMICRO, UARMICR #### [facility] [address] [address] [address] Bertha Moreno (CLEAN/CATCH) CHIEF ACCOUNTANT/MICRO IF IND.on 87-45-1866Lvphzyfaw Ql (U) NegativeNormalNEGATIVEHolzer HospitalComment on above:Performed By: #### ROLAND UACSIND #### [facility] [address] [address] [address] Bertha DuncanClarity (U)CLEARNormalCLEARHolzer HospitalComment on above: Performed By: #### ROLAND UACSIND #### [facility] [address] [address] [address] Bertha Ndiaye (U)LT. YELLOWNormalYELLOWHolzer HospitalComment on above:Performed By: #### ROLAND UACSIND #### [facility] [address] [address] [address] Bertha DuncanGlucose Ql (U)250 mg/dlAbnoalUniversity Hospitals Geauga Medical Center Comment on above:Performed By: #### ROLAND UACSIND #### [facility] [address] [address] [address] Bertha DuncanHemoglobin Ql (U)SMALLAbnormOhioHealth Shelby Hospital Comment on above:Performed By: #### ROLAND UACSIND #### [facility] [address] [address] [address] Bertha DuncanKetones Ql (U)NegativeNormalNEGATIVEHolzer HospitalComment on above:Performed By: #### ROLAND UACSIND #### [facility] [address] [address] [address] Bertha DuncanLEUKOCYTESLARGEAbnormalNEGHolzer HospitalComment on above:Performed By: #### ROLAND UACSIND #### [facility] [address] [address] [address] Bertha DuncanNitrite Ql (U)NegativeNormalNEGATIVEHolzer HospitalComment on above:Performed By: #### ROLAND UACSIND #### [facility] [address] [address] [address] Bertha Hager (U)6.0 [pH]Normal5-9The [facility] CenterComment on above: Performed By: #### ROLAND UACSIND #### [facility] [address] [address] [address] Bertha DuncanSPEC GRAVITY1.541Ndslow3.005-<=1.025The [facility] CenterComment on above:Performed By: #### ROLAND CSIND #### [facility] [address] [address] [address] Bertha Moreno PROTEINNegativeNormalNEGATIVE/ TRACEThe [facility] Comment on above:Performed By: #### ROLAND UACSIND #### [facility] [address] [address] [address] Bertha Kinney MICRO INDINDICATEDNoAdena Fayette Medical CenterComment on above: Performed By: #### ROLAND UACSIND #### [facility] [address] [address] [address] Bertha Wray Qn (U)0.2 {[place]'U}/dLNormal0.2 - 1.0The [facility] on above:Performed By: #### ROLAND UACSIND #### [facility] [facility] [address] [address] [address] Bertha Grady MICROSCOPIC ONLYon [id number]J SEEN Holzer HospitalComment on above:Performed By: #### ROLAND UACSIND #### [facility] [address] [address] [address] Bertha Franklin identified Cx Nom (U)INDICATEDSelect Medical Specialty Hospital - Boardman, IncComment on above:Performed By: #### ROLAND UACSIND #### [facility] [address] [address] [address] Bertha Robledo SEENNormalNONE SEENHolzer HospitalComment on above:Performed By: #### ROLAND, UACSIND #### [facility] [address] [address] [address] Bertha DuncanCrystals LM Nom (Urine sed)NONE SEENNormalNONE SEENThe [facility] CenterComment on above:Performed By: #### UMMICHELLE, UACSIND #### [facility] [address] [address] [address] Stone ChangEpithelial cells LM Ql (Urine sed)MODERATEAbnormalNONE SEEN /RARE The [facility] CenterComment on above:Performed By: #### ROLAND UACSIND #### [facility] [address] [place] [address] Dr. Bertha DuncanMUCOUSTRACEAbnormalNONE SEENMercy Health on above:Performed By: #### ROLAND UACSIND #### [facility] [address] [place] [address] Dr. Bertha DuncanKybelQEL9-90Sllveqbb3-5Fpi [facility] CenterComment on above:Performed By: #### ROLAND UACSIND #### [facility] [address] [place] [address] Dr. Bertha DuncanOaopiRPA42-59YtstgkoxRONQ SEENMercy Health on above: Performed By: #### ROLAND, UACSIND #### [facility] [address] [place] [address] Dr. Bertha Walters KIDNEYS BLADDERon [id number] KIDNEYS BLADDEREXAMINATION: US KIDNEYS BLADDER HISTORY: Blood in urine [...] Electronically authenticated by: ARTEM WILLS Date: 2021-11-02 18:01[facility] AUTO DIFFon [id number] #0.0 103/ulNormal0.0-0.1Holzer HospitalComment on above:Performed By: #### DINO WATKINS #### [facility] [address] [place] [address] Dr. Stone ChangBasophils/100 WBC (Bld)0.4 %Normal0.2-2.0[facility] Comment on above:Performed By: #### DINO WATKINS #### [facility] [address] [place] [address] Dr. Bretha Younger #0.1 103/ulNormal0.0-0.7The [facility] CenterComment on above: Performed By: #### DINO WATKINS #### [facility] [address] [place] [address] Dr. Bertha Del Rioosinophils/100 WBC (Bld)1.5 %Normal0.9-7.0[facility] Comment on above:Performed By: #### JAREN WATKINSR #### [facility] [address] [place] [address] Dr. Bertha Del Riorythrocyte distribution width (RBC) [Ratio]12.8 %Ectfnn45.0-15.0 The [facility] CenterComment on above:Performed By: #### JAREN WATKINSR #### [facility] [address] [place] [address] Dr. Bertha DuncanHematocrit (Bld) [Volume fraction]36.0 %Mzzupo22.0-48.0The [facility] CenterComment on above:Performed By: #### EDITH WATKINSRMICR #### [facility] [address] [place] [address] Dr. Bertha DuncanHemoglobin (Bld) [Mass/Vol]11.7 g/dLCritically low12.0-16.0The [facility] CenterComment on above:Performed By: #### EDITH WATKINSRMICR #### [facility] [address] [place] [address] Dr. Bertha Bender #0.02 10e3/ulNormal0.00-0.03The [facility] CenterComment on above:Performed By: #### EDITH WATKINSRMICR #### [facility] [address] [place] [address] Dr. Bertha Bender %0.3 %Normal0.0-0.5The [facility] CenterComment on above: Performed By: #### EDITH WATKINSRMICR #### [facility] [address] [place] [address] Dr. Bertha Anthony #2.2 103/ulNormal1.2-3.8The [facility] CenterComment on above:Performed By: #### EDITH WATKINSRMICR #### [facility] [address] [place] [address] Dr. Bertha Fumphocytes/100 WBC (Bld)30.2 %Kjrwfo33.5-60.0The [facility] CenterComment on above:Performed By: #### EDITH WATKINSRMICR #### [facility] [address] [place] [address] Dr. Bertha WhiteUAL DIFF REQNONormalThe [facility] CenterComment on above: Performed By: #### EDITH WATKINSRMICR #### [facility] [address] [place] [address] Dr. Bertha Mann (RBC) [Entitic mass]28.5 bdBgkyfd90.7-34.0The [facility] CenterComment on above:Performed By: #### ROLAND UARMICR #### [facility] [address] [place] [address] Dr. Bertha Mann (RBC) [Mass/Vol]32.5 g/gNYdawhd28.9-35.2The Bedford HospitalComment on above:Performed By: #### ROLAND UARMICR #### [facility] [address] [place] [address] Dr. Bertha Mann (RBC) [Entitic vol]87.8 sRQbqzti79.0-99.0The [facility] CenterComment on above:Performed By: #### EDITH WATKINSRMICR #### [facility] [address] [place] [address] Dr. Bertha Chavez #0.5 103/ulNormal0.3-0.8The [facility] CenterComment on above:Performed By: #### EDITH WATKINSRMICR #### [facility] [address] [place] [address] Dr. Bertha Linaresocytes/100 WBC (Bld)6.9 %Normal1.7-12.0The [facility] Comment on above:Performed By: #### ROLAND UARMICR #### [facility] [address] [place] [address] Dr. Bertha Huang #4.5 103/ulNormal1.4-6.5The [facility] CenterComment on above:Performed By: #### ROLAND UARMICR #### [facility] [address] [place] [address] Dr. Bertha Mitchellophils/100 WBC (Bld)60.7 %Klbdfd64.0-75.0The [facility] CenterComment on above:Performed By: #### ROLAND UARMICR #### [facility] [address] [address] [address] Bertha Montoya mean volume (Bld) [Entitic vol]9.5 fLNormal9.5-13.5The [facility] CenterComment on above:Performed By: #### ROLAND UARMICR #### [facility] [address] [address] [address] Bertha AndradeT360 103/wbRzgbsh473-274Gre [facility] CenterComment on above: Performed By: #### ROLAND UARMICR #### [facility] [address] [address] [address] Bertha DuncanRBC4.10 106/ulCritically low4.20-5.40The [facility] CenterComment on above:Performed By: #### EDITH WATKINSRMICR #### [facility] [address] [place] [address] Dr. Bertha DuncanWBC7.4 103/ulNormal4.0-11.0The [facility] CenterComment on above: Performed By: #### EDITH WATKINSRMICR #### [facility] [address] [place] [address] Dr. Bertha Cross [id number] Ql (U)NegativeNormalNEGATIVEHolzer HospitalComment on above:Performed By: #### UA #### [facility] [address] [place] [address] Dr. Bertha Camacho (U)CLEARNormalCLEARThe [facility] CenterComment on above: Performed By: #### UA #### [facility] [address] [place] [address] Dr. Bertha Ndiaye (U)REDAbnormalYELLOWHolzer HospitalComment on above: Performed By: #### UA #### [facility] [address] [place] [address] Dr. Bertha DuncanGlucose Ql (U)250 mg/dlAbnormalNEGATIVEHolzer Hospital Comment on above:Performed By: #### UA #### [facility] [address] [address] [address] Bertha DuncanHemoglobin Ql (U)LARGEAbnormalNEGATIVEThe [facility] on above:Performed By: #### UA #### [facility] [address] [address] [address] Bertha Kochones Ql (U)NegativeNormalNEGATIVEThe [facility] CenterComment on above:Performed By: #### UA #### [facility] [address] [address] [address] Bertha DuncanLEUKOCYTESNegativeNormalNEGATIVEThe [facility] CenterComment on above:Performed By: #### UA #### [facility] [address] [address] [address] Bertha DuncanNitrite Ql (U)NegativeNormalNEGATIVEHolzer HospitalComment on above:Performed By: #### UA #### [facility] [address] [place] [address] Dr. Bertha DuncanpH (U)5.5 [pH]Normal5-9The [facility] CenterComment on above: Performed By: #### UA #### [facility] [address] [place] [address] Dr. Bertha DuncanSPEC GRAVITY1.899Goeqep6.005-<=1.025The [facility] Medical CenterComment on above:Performed By: #### UA #### [facility] [address] [address] [address] Bertha Moreno PROTEINTRACENormalNEGATIVE/ TRACEThe [facility] CenterComment on above:Performed By: #### UA #### [facility] [address] [place] [address] Dr. Bertha DuncanUrobilinogen Qn (U)0.2 {[place]'U}/dLNormal0.2 - 1.0The [facility] CenterComment on above:Performed By: #### UA #### [facility] [address] [place] [address] Dr. Bertha Yin/Louis [id number]/RhPositiveBON SIOUX FALLS SURGICAL CENTERBasic Metabolic Panel w/ Reflex to MGon [id number] gap [Moles/Vol]16 mmol/L9 - 17 mmol/LBON SECOURS [facility]ERY HEALTHCalcium [Mass/Vol]9.8 mg/dL8.6 - 10.4 mg/dLBON SECOURS MERCY HEALTHChloride [Moles/Vol]98 mmol/L98 - 107 mmol/LBON [facility]ENTERY HEALTHCO2 [Moles/Vol]25 mmol/L20 - 31 mmol/LBON [facility]ENTERY HEALTHCreatinine [Mass/Vol]0.41 mg/dLLow0.50 - 0.90 mg/dLB[facility]ERY HEALTHGFR Non- AmericanPediatric GFR requires additional information. Refer to NKDEP website for calculator.>60 mL/minBON SELECT MEDICAL SPECIALTY HOSPITAL - CLEVELAND-FAIRHILLGlucose [Mass/Vol]69 mg/dLLow70 - 99 mg/dLBON [facility] Interpretation and review of laboratory resultsAbnormalBON [facility] Potassium [Moles/Vol]4.1 mmol/L3.7 - 5.3 mmol/LBON SECOURS MERCY [facility] ORTHOPEDIC CENTERSodium [Moles/Vol]139 mmol/L135 - 144 mmol/LBON SECOURS MERCY HEALTHUrea nitrogen (BldV) [Mass/Vol]10 mg/dL6 - 20 mg/dLBON SECOURS MERCY HEALTHUrea nitrogen/Creatinine (Bld) [Mass ratio]24HighBON SIOUX FALLS SURGICAL CENTERCBC with Auto Differentialon [id number] Eos #0.23B[facility]CY HEALTHAbsolute Immature Granulocyte0.19B[facility]CY HEALTHAbsolute Lymph #3.34[facility] HEALTHAbsolute Stanton #1.34[facility] Basophils (Bld) [#/Vol]0.06 10*3/uLBON SECOURS MERCY HEALTHBasophils/100 WBC (Bld)0 %0 - 2 %[facility] HEALTHEosinophils/100 WBC (Bld)1 %1 - 4 %[facility] HEALTHHematocrit (Bld) [Volume fraction]35.9 %Low36.3 - 47.1 %[facility] HEALTHHemoglobin (Bld) [Mass/Vol]11.6 g/dLLow11.9 - 15.1 g/dLBON SELECT MED[facility]-FAIRHILLImmature granulocytes/100 WBC (Bld)1 %Vinj7WVZBON SECOURS MEMORIAL REGIONAL MEDICAL CENTERInterpretation and review of laboratory resultsAbnormalBON SELECT MEDICAL SPECIALTY HOSPITAL - CLEVELAND-FAIRHILLLymphocytes/100 WBC (Bld)18 %Low25 - 45 %[facility]OUN HOSPITALH (RBC) [Entitic mass]28.8 pg25.2 - 33.5 pgBON MERCY HEALTH ALLEN HOSPITALHC (RBC) [Mass/Vol]32.3 g/dL28.4 - 34.8 g/dLBON MERCY HEALTH ALLEN HOSPITALV (RBC) [Entitic vol]89.1 fL82.6 - 102.9 fLBON SECOURS MEMORIAL REGIONAL MEDICAL CENTERMonocytes/100 WBC (Bld)7 %2 - 8 %[facility]IONAL MEDICAL CENTERNRBC Automated0.00.0 per 100 WBCBON SECOURS MEMORIAL REGIONAL MEDICAL CENTERPlatelet distribution width (Bld) [Ratio]12.4 %11.8 - 14.4 %[facility] MEDICAL CENTERPlatelet mean volume (Bld) [Entitic vol]8.3 fL8.1 - 13.5 fLBON SECOURS MEMORIAL REGIONAL MEDICAL CENTERPlatelets (Bld) [#/Vol]664 10*3/uLHighBON SECOURS MEMORIAL REGIONAL MEDICAL CENTERRBC (Bld) [#/Vol]4.03 10*6/uL3.95 - 5.11 m/uLBON SECOURS [facility]ORIAL REGIONAL MEDICAL [facility]ENTER Segmented neutrophils/100 WBC (Bld)73 %High34 - 64 %[facility] MEDICAL CENTERSegs Fjftmbjj68.24HighBON SECOURS MEMORIAL REGIONAL MEDICAL CENTERWBC (Bld) [#/Vol]18.4 10*3/uLHighDOMINION HOSPITALHCG, Quantitative, Pregnancyon [id number] Naign4583Xorh<5 mIU/mLBON SECOURS MEMORIAL REGIONAL MEDICAL CENTERComment on above: Non-preg premeno <=5 Postmeno <=8 Male <=3 If HCG results do not concur with clinical observations, additional testing to confirm results is recommended. Elevated results not associated with may be found in patients with other diseases such as tumors of the germ cells (testis, ovaries, etc.), bladder, pancreas, stomach, lungs, and liver. Interpretation and review of laboratory resultsAbnormChesapeake Regional Medical CenterHepatic Function Panelon [id number] [Mass/Vol]4.1 g/dL3.5 - 5.2 g/dLBON [facility] MED[facility]-FAIRHILLAlbumin/Globulin [Mass ratio]1.1 {ratio}[facility]ORIAL REGIONAL MEDICAL CENTERALP (Bld) [Catalytic activity/Vol]86 U/L35 - 104 U/LBON [facility] MEDICAL SPECIALTY HOSPITAL - CLEVELAND-FAIRHILLALT [Catalytic activity/Vol]15 U/L5 - 33 U/LBON [facility] MEDICAL SPECIALTY HOSPITAL - CLEVELAND-FAIRHILLAST [Catalytic activity/Vol]27 U/L<32BON [facility]-FAIRHILLBilirubin [Mass/Vol]0.18 mg/dLLow0.3 - 1.2 mg/dLBON [facility] Bilirubin, IndirectCan not be calculated0.00 - 1.00 mg/dLBON SELECT MED[facility]TY [facility]OSPITAL - CLEVELAND-FAIRHILLBilirubin.indirect [Mass/Vol]mg/dL<0.31 mg/dLBON SELECT MED[facility]-FAIRHILLFree PSA/Total PSA [Mass fraction]8.0 g/dL6.4 - 8.3 g/dLBON [facility] Interpretation and review of laboratory resultsAbnoSpearfish Regional HospitalLaboratory - Chemistry and Chemistry - challengeon [id number]/1.73 sq M.predicted MDRD (S/P/Bld) [Vol rate/Area][facility] MEDICAL CENTERComment on above:Average GFR for <20 years old not available. Chronic Kidney Disease: <60 mL/min/1.73sq m Kidney failure: <15 mL/min/1.73sq m eGFR calculated using average adult body mass. Additional eGFR calculator available at: http://www.RedHelper.rollApp/multiple_crcl_2012.htm Stage 1: Some kidney damage normal GFR Stage 2: Mild kidney damage GFR 60-89 Stage 3: Moderate kidney damage GFR 30-59 Stage 4: Severe kidney damage GFR 15-29 Stage 5: Severe kidney damage GFR <15 ESRD - chronic treatment by dialysis or transplant Celina Byrneon [id number] and review of laboratory results AbnormalBON SECOURS K[facility]TER[facility]ENTERY HEALTHLactic Acid, Sepsis3.2 mmol/LHigh0.5 - 1.9 mmol/LBON [facility]OURS [facility]ERY HEALTHB[facility] HEALTHInterpretation and review of laboratory resultsAbnormalBON SECOU[facility]ERY HEALTHLactic Acid, Sepsis3.0 mmol/LHigh0.5 - 1.9 mmol/LBON [facility]ERY HEALTHB[facility] HEALTHLipase on [id number] [Catalytic activity/Vol]32 U/L13 - 60 U/LBON [facility]ERY HEALTHB[facility]ERY HEALTHMicroscopic Urinalysison 10-07-2021-[facility]ERY HEALTHBacteria, UATRACEAbnormalNoneBON [facility]ERY HEALTHEpithelial Cells UA2 TO 5BON SECST. [facility]HAEL[facility]ENTERY HEALTHInterpretation and review of laboratory resultsAbnormalBON [facility]OU[facility]ERY HEALTHRBC, UA50 TO 100BON [facility] HEALTH WBC, UA5 TO 10BON SECOHIO [facility] CENTERBON [facility] HEALTHUrinalysis with Reflex to Cultureon [id number] UrineNegativeNEGATIVEBON SECOURS [facility] HEALTHColor, UAYellowYellowBON [facility] HEALTHGlucose, UrTRACEAbnormal NEGATIVEBON [facility] HEALTHInterpretation and review of laboratory results AbnormalBON SECOURS MERCY HEALTHKetones Ql (U)NegativeNEGATIVEBON [facility] HEALTHLeukocyte esterase Test strip Ql (U)TRACEAbnormalNEGATIVEBON [facility] HEALTHNitrite, UrineNegativeNEGATIVEB[facility] HEALTHpH, UA6.5B[facility] HEALTHProtein, UA1+AbnormalNEGATIVEB[facility] HEALTHSpecific [place], UA<1.005LowBON [facility] HEALTHTurbidity UAClearClearBON [facility] HEALTHUrine Hgb3+AbnormalNEGATIVEBON [facility] HEALTHUrobilinogen, UrineNormalNormalB[facility] HEALTHB[facility] HEALTHXR CHEST PORTABLEon [id number] than mild atelectasis in the right perihilar area no acute lung disease. MHPN RIS CONSOLIDATEDEXAMINATION: ONE XRAY VIEW OF THE CHEST 10/07/2021 6:13 pm COMPARISON: June 13, 2020 HISTORY: ORDERING SYSTEM PROVIDED HISTORY: Slight decreased breath sounds left lower lung TECHNOLOGIST PROVIDED HISTORY: Slight decreased breath sounds left lower lung FINDINGS: Mild atelectasis in the right perihilar area. No other active lung parenchymal or pleural disease. Heart, mediastinum and pleural surfaces appear unremarkable. [facility] Madelaine Thompson MD - 10/07/2021 EXAMINATION: ONE XRAY VIEW [...] right perihilar area no acute lung disease. [email or web address] Phone: radiology Study observation (narrative)[email or web address] Phone: XR CHEST PORTABLEOrdered By: Madelaine Levine on 10-07-2021 [email or web address] Phone: us URINARY BLADDER LIMITEDon [id number] ureteral jet could not be visualized. Postvoid residual 212 mL. [facility] ANDREEXAMINATION: ULTRASOUND OF THE URINARY BLADDER 07/20/2021 COMPARISON: None. HISTORY: ORDERING SYSTEM PROVIDED HISTORY: Urinary tract infection without hematuria, site unspecified FINDINGS: Urinary bladder unremarkable in appearance with prevoid volume 495 mL. Right ureteral jet not demonstrated. Postvoid residual 212 mL. [facility] Nirmal Phelan DO - 07/20/2021 EXAMINATION: ULTRASOUND OF THE URINARY BLADDER 07/20/2021 COMPARISON: None. HISTORY: ORDERING SYSTEM PROVIDED HISTORY: Urinary tract infection without hematuria, site unspecified FINDINGS: Urinary bladder unremarkable in appearance with prevoid volume 495 mL. Right ureteral jet not demonstrated. Postvoid residual 212 mL. IMPRESSION: Right ureteral jet could not be visualized. Postvoid residual 212 mL. [employer] Phone: radiology Study observation (narrative)[employer] Work Phone: US URINARY BLADDER LIMITEDOrdered By: Nirmal Haskins on [id number] Work Phone: Urinalysis with Microscopicon 07-12-2021-[employer] Bacteria, UA2+AbnormalNoneMercy HealthBilirubin UrineNegativeNEGATIVEMer HealthColor, UAYellowYellowMercy HealthEpithelial Cells UA2 TO 5[facility] Glucose, UrNegativeNEGATIVEMercy HealthInterpretation and review of laboratory resultsAbnormalMercy HealthKetones Ql (U)NegativeNEGATIVEMer HealthLeukocyte esterase Test strip Ql (U)LARGEAbnormalNEGATIVEMercy HealthNitrite, Urine NegativeNEGATIVEMercy HealthpH, UA6.5Mercy HealthProtein, UANegativeNEGATIVE [facility] HospitalAddShoppers HealthRBC, UA0 TO 2Mercy HealthSpecific [place], UA1.010Mer Health Turbidity UAClearClearMer HealthUrine HgbNegativeNEGATIVETrumbull Regional Medical Center Health Urobilinogen, UrineNormalNormalMercy HealthWBC, UA20 TO 50Mercy HealthMercy HealthAPTTOrdered By: Louise Ordonez on [id number] Coag (Bld) [Time]29.5 s [employer] Phone: comment on above: IV Heparin Therapy Range: 62.0-94.0 CBC Auto DifferentialOrdered By: Louise Ordonez on [id number] Eos #0.11 [employer] Work Phone: absolute Immature Granulocyte0.05[facility] HospitalBvents Phone: absolute Lymph #2.08[facility] HospitalBvents Phone: absolute Stanton #0.60[facility] HospitalSkimbl Work Phone: basophils (Bld) [#/Vol]0.03 10*3/uLDelaware County HospitalSkimbl Work Phone: basophils/100 WBC (Bld)0 %0 - 2 %[employer] Phone: differential TypeNOT REPORTEDDelaware County HospitalBvents Phone: eosinophils/100 WBC (Bld)1 %1 - 4 %[employer] Phone: Hematocrit (Bld) [Volume fraction]43.7 %36.3 - 47.1 % [employer] Phone: Hemoglobin.gastrointestinal spec 1 Ql (Stl)14.9 g/dL 11.9 - 15.1 g/dLDelaware County HospitalBvents Phone: Immature granulocytes/100 WBC (Bld)1 %Lect5NqsreBvents Phone: Interpretation and review of laboratory results AbnormalDelaware County HospitalBvents Phone: lymphocytes/100 WBC (Bld)21 %Low25 - 45 %[employer] Phone: MCH (RBC) [Entitic mass]30.3 pg25.0 - 35.0 pgDelaware County HospitalBvents Phone: MCHC (RBC) [Mass/Vol]34.1 g/dL28.4 - 34.8 g/dLDelaware County HospitalBvents Phone: MCV (RBC) [Entitic vol]88.8 fL78.0 - 102.0 fLDelaware County HospitalBvents Phone: Monocytes/100 WBC (Bld)6 %2 - 8 %[employer] Phone: NRBC Automated0.00.0 per 100 WBCDelaware County HospitalBvents Phone: platelet distribution width (Bld) [Ratio]12.3 %11.8 - 14.4 %[employer] Phone: platelet EstimateNOT REPORTEDDelaware County HospitalBvents Phone: platelet mean volume (Bld) [Entitic vol]9.8 fL8.1 - 13.5 fLAbove Security Phone: Dlatelets (Bld) [#/Vol]297 10*3/uLDelaware County HospitalSkimbl Work Phone: RBC (Bld) [#/Vol]4.92 10*6/uL3.95 - 5.11 m/uLDelaware County HospitalBvents Phone: RBC (Bld) [#/Vol]NOT REPORTEDDelaware County HospitalBvents Phone: Negmented neutrophils/100 WBC (Bld)71 %High34 - 64 % [employer] Phone: Cegs Absolute6.86Del[facility] HospitalBvents Phone: WBC (Bld) [#/Vol]9.7 10*3/uLDelaware County HospitalBvents Phone: WBC (Bld) [#/Vol]NOT REPORTEDDelaware County HospitalBvents Phone: [facility] HospitalBvents Phone: comprehensive Metabolic PanelOrdered By: Louise Ordonez on [id number] [Mass/Vol]5.1 g/dL3.5 - 5.2 g/dLAbove Security Phone: Dlbumin/Globulin [Mass ratio]1.5 {ratio}[employer] Phone: aLP (Bld) [Catalytic activity/Vol]90 U/L35 - 104 U/L [employer] Phone: JLT [Catalytic activity/Vol]22 U/L5 - 33 U/LMpremier health upper valley medical centerAlchemyAPI Phone: anion gap [Moles/Vol]14 mmol/L9 - 17 mmol/LMpremier health upper valley medical centery [employer]arity Phone: aST [Catalytic activity/Vol]29 U/L<32Del[facility] HospitalBvents Phone: bilirubin [Mass/Vol]0.54 mg/dL0.3 - 1.2 mg/dLDelaware County HospitalBvents Phone: calcium [Mass/Vol]10.4 mg/dL8.6 - 10.4 mg/dLTrumbull Regional Medical Center [employer] Phone: chloride [Moles/Vol]103 mmol/L98 - 107 mmol/LMpremier health upper valley medical centery [employer] Work Phone: cO2 [Moles/Vol]26 mmol/L20 - 31 mmol/LMcleveland clinic hillcrest hospital [employer] Work Phone: creatinine [Mass/Vol]0.52 mg/dL0.50 - 0.90 mg/dLTrumbull Regional Medical Center [employer] Phone: Free PSA/Total PSA [Mass fraction]8.6 g/dLHigh6.4 - 8.3 g/dLTrumbull Regional Medical Center [employer] Phone: GFR AmericanNOT REPORTED>60 mL/minTrumbull Regional Medical Center Gl[employer] Phone: GFR Non- AmericanPediatric GFR requires additional information. Refer to InnometricsDEP website for calculator.>60 mL/minTrumbull Regional Medical Center Gl[employer] Phone: Glucose [Mass/Vol]82 mg/dL70 - 99 mg/dLTrumbull Regional Medical Center Gl[employer] Phone: Interpretation and review of laboratory results AbnormalTrumbull Regional Medical Center Gl[employer] Phone: potassium [Moles/Vol]4.3 mmol/L3.7 - 5.3 mmol/LMcleveland clinic hill[facility]st hospital [employer] Work Phone: sodium [Moles/Vol]143 mmol/L135 - 144 mmol/LMpremier health upper valley medical centery Glarity Phone: Urea nitrogen (BldV) [Mass/Vol]15 mg/dL6 - 20 mg/dL [facility] Glarity Phone: Urea nitrogen/Creatinine (Bld) [Mass ratio]29HighTrumbull Regional Medical Center Glarity Phone: [facility] Gl[employer] Phone: EKG 12 LeadOrdered By: Louise Ordonez on 01-19-2021 Atrial Zrtt89NPZBnufsYgline.com Phone: S Qhvv74kemucoqCkgbxMetaFLO Phone: V-R Wxuenukv552 [employer] Phone: Q-T Pymspoix829 [employer] Phone: QRS Bimiycej50 [employer] Work Phone: QTc Calculation (Bazett)395 [employer] Work Phone: R Walp83uwandvwVssskMetaFLO Phone: [phone] Bpch72ohbgicxLtxjeeBrevia Phone: Ventricular Scoc92RFLSjfhsYgline.com Phone: Normal sinus rhythm with sinus arrhythmia Normal ECG When compared with ECG of 13-JUN-2020 13:57, No significant change was found Confirmed by Marlyn Boyce MD ([id number]) on 01/19/2021 10:08:57 PM Above Security Phone: edora [facility] Incoming Ekg Results From [facility]ial [place] - 01/19/2021 10:09 PM EDT Formatting of this note mightbe different from the original. Normal sinus rhythm with sinus arrhythmia Normal ECG When compared with ECG of 13-JUN-2020 13:57, No significant change was found Confirmed by Marlyn Boyce MD ([id number]) on 01/19/2021 10:08:57 PMAbove Security Phone: [facility] Phone: laboratory - Chemistry and Chemistry - challenge Ordered By: Louise Ordonez on 70-97-0754TVY/1.73 sq M.predicted MDRD (S/P/Bld) [Vol rate/Area]Above [employer] Phone: comment on above:Average GFR for <20 years old not available. Chronic Kidney Disease: <60 mL/min/1.73sq m Kidney failure: <15 mL/min/1.73sq m eGFR calculated using average adult body mass. Additional eGFR calculator available at: http://www.[employer]/multiple_crcl_2012.htm Stage 1: Some kidney damage normal GFR Stage 2: Mild kidney damage GFR 60-89 Stage 3: Moderate kidney damage GFR 30-59 Stage 4: Severe kidney damage GFR 15-29 Stage 5: Severe kidney damage GFR <15 ESRD - chronic treatment by dialysis or transplant No Panel InformationOrdered By: Louise Ordonez on 32-41-4093FdzzeAbove Security Phone: [phone]-UTBDcwtkws By: Louise Ordonez on 01-19-2021 INR Coag (Bld) [Relative time]1.1 {INR}Above Security Phone: comment on above: Non-therapeutic Range: INR = 0.9-1.2 Therapeutic Range: Moderate Anticoagulant Intensity: INR = 2.0-3.0 High Anticoagulant Intensity: INR = 2.5-3.5 PT Coag (PPP) [Time]13.9 [employer] Phone: living Will/POAon 64-28-9022Kmlapd Will/POA [id number]#1.00CD:127CentervillePathology Noteon 53-16-2676Ikzypmknp Note [id number]#1.00CD:127CentervilleAmbulatory Clinical Summaryon 56-79-8877Vwnwdzwoih Clinical Summary {t6-m8-0v-[id number]-8x-tl-08-9u-4o-77-ac-e0-49}CD:[id number]eneral Surgery Office/Clinic Noteon 63-54-8271Xvxoqqb Surgery Office/Clinic NoteChief Complaint Post operative visit HPI Staff 4 Day s/p Cholecystectomy completed at [facility]. Present today with mother. Denies symptoms of nausea, vomiting, pain, fever, or chills. Taking Zofran PRN for nausea. Not taking anything forpain. History of Present Illness 4 days s/p LS cholecystectomy for gallstone pancreatitis; doing well, occasional nausea, none today, tolerating regular diet, no bms since surgery, took Miralax yesterday; no fevers, no drainage fromincisions. Review of Systems PHQ Score Initial Depression Screen Score: 0 ROS - Provider Constitutional: no fever, no sweats, no weight loss. Eyes: no glasses, no blurred vision, no visual loss. ENMT: no dentures, no hoarseness, no swallowing difficulties, no hearing loss, no ear infection(s),no nose bleeds. Cardiovascular: normal blood pressure, no [...] incisions with glue intact, no erythema or drainage,small amount resolving ecchymoses. Assessment/Plan 1. Gallstone pancreatitis [...] lifetime) Tobacco Use:. Never Smokeless Tobacco Use:., 10/11/2020CentervilleComment on above:Result Comment: Electronically Signed By: KIARA ARIAS, Francisco Ellis\Date and Time Signed: 10/11/20 13:37 EDTPatient Educationon 12-16-1370Huodnmh EducationPhysical Medicine and Rehabilitation Exercising to Lose Weight Exercise is structured, repetitive physical activity to improve fitness and health. Getting regularexercise is important for everyone. It is especially important if you are overweight. Being overweight increases your risk of heart disease, stroke, diabetes, high blood pressure, and several types of cancer. Reducing your calorie intake and exercising can help you lose weight. Exercise is usually categorized as moderate or vigorous intensity. To lose weight, most people needto do a certain amount of moderate-intensity or [...] you eat, you lose weight. Exercise also reducesbody fat and builds muscle. The more muscle [...] you need and what types of activities aresafe for you. What actions can I take to lose weight? Nutrition ? Make changes to your diet as told by your health care provider or diet and nursing specialist (dietitian). This may include: ? Eating [...] goals. Your health care provider can help youmake an exercise plan that works for you. [...] heart disease, stroke, diabetes, high blood pressure, andseveral types of cancer. ? Losing weight paul (more content not included)...CentervilleRAD - MRI Reporton 13-21-0804KSW - MRI Report [id number]#1.00CD:127NormAultman Alliance Community HospitalCBC Auto DifferentialOrdered By: Louise Lemos on 11-95-7976Vjiiyahs Eos # 0.10[facility] Phone: absolute Immature Granulocyte<0.03[facility] Phone: absolute Lymph #2.27[facility] Phone: absolute Stanton #0.54[facility] Phone: basophils (Bld) [#/Vol]0.04 10*3/uLDelaware County HospitalBvents Phone: basophils/100 WBC (Bld)1 %0 - 2 %Above [employer] Phone: differential TypeNOT REPORTEDDelaware County HospitalBvents Phone: eosinophils/100 WBC (Bld)1 %1 - 4 %[employer] Phone: Hematocrit (Bld) [Volume fraction]43.3 %36.3 - 47.1 % [employer] Phone: Hemoglobin.gastrointestinal spec 1 Ql (Stl)14.5 g/dL 11.9 - 15.1 g/dLAbove Security Phone: Immature granulocytes/100 WBC (Bld)0 %0Above Security Phone: Lymphocytes/100 WBC (Bld)30 %25 - 45 %Above [employer] Phone: MCH (RBC) [Entitic mass]29.4 pg25.0 - 35.0 pgDelaware County HospitalBvents Phone: MCHC (RBC) [Mass/Vol]33.5 g/dL28.4 - 34.8 g/dLAbove Security Phone: [phone] (RBC) [Entitic vol]87.8 fL78.0 - 102.0 fLAbove Security Phone: Monocytes/100 WBC (Bld)7 %2 - 8 %[employer] Phone: NRBC Automated0.00.0 per 100 WBCAbove Security Phone: Slatelet distribution width (Bld) [Ratio]13.1 %11.8 - 14.4 %[employer] Phone: Jlatelet EstimateNOT REPORTEDAbove Security Phone: Platelet mean volume (Bld) [Entitic vol]10.9 fL8.1 - 13.5 fLDelaware County HospitalBvents Phone: [phone] (Bld) [#/Vol]313 10*3/uLAbove Security Phone: RBC (Bld) [#/Vol]4.93 10*6/uL3.95 - 5.11 m/uLAbove Security Phone: [phone] (Bld) [#/Vol]NOT REPORTEDDelaware County HospitalBvents Phone: Uegmented neutrophils/100 WBC (Bld)61 %34 - 64 %Paul[facility] HospitalAlchemyAPI Phone: Legs Absolute4.57[facility] Phone: WBC (Bld) [#/Vol]7.5 10*3/uLDelaware County HospitalBvents Phone: WBC (Bld) [#/Vol]NOT REPORTEDDelaware County HospitalBvents Phone: [facility] Phone: comprehensive Metabolic PanelOrdered By: Louise Lemos on 59-94-5032Vhwmegq [Mass/Vol]4.7 g/dL3.5 - 5.2 g/dLDelaware County HospitalBvents Phone: Glbumin/Globulin [Mass ratio]1.6 {ratio}[facility] HospitalAlchemyAPI Phone: RLP (Bld) [Catalytic activity/Vol]200 U/LHigh35 - 104 U/LMercAmpliSense Work Phone: ILT [Catalytic activity/Vol]514 U/LHigh5 - 33 U/LMVastPark Work Phone: Knion gap [Moles/Vol]9 mmol/L9 - 17 mmol/LMPick1y [employer] Work Phone: CST [Catalytic activity/Vol]378 U/LHigh<32MerBvents Phone: Wilirubin [Mass/Vol]1.72 mg/dLHigh0.3 - 1.2 mg/dLDelaware County HospitalBvents Phone: Nalcium [Mass/Vol]9.8 mg/dL8.6 - 10.4 mg/dLDelaware County HospitalBvents Phone: Ahloride [Moles/Vol]105 mmol/L98 - 107 mmol/LMercy [employer] Work Phone: MO2 [Moles/Vol]27 mmol/L20 - 31 mmol/LMercy [employer] Work Phone: creatinine [Mass/Vol]0.45 mg/dLLow0.50 - 0.90 mg/dL Above [employer] Phone: Free PSA/Total PSA [Mass fraction]7.7 g/dL6.4 - 8.3 g/dLDelaware County HospitalBvents Phone: GFR AmericanNOT REPORTED>60 mL/minDelaware County HospitalBvents Phone: GFR Non- AmericanPediatric GFR requires additional information. Refer to [employer] website for calculator.>60 mL/minDelaware County HospitalBvents Phone: Glucose [Mass/Vol]103 mg/pFIqno22 - 99 mg/dLDelaware County HospitalBvents Phone: Interpretation and review of laboratory results AbnormalDelaware County HospitalBvents Phone: potassium [Moles/Vol]4.4 mmol/L3.7 - 5.3 mmol/LMIn[employer]itas Phone: sodium [Moles/Vol]141 mmol/L135 - 144 mmol/LMInsuritas Phone: Urea nitrogen (BldV) [Mass/Vol]10 mg/dL6 - 20 mg/dL [employer] Phone: Urea nitrogen/Creatinine (Bld) [Mass ratio]22HighDelaware County HospitalBvents Phone: FTI RATIOOrdered By: Louise Lemos on 57-35-7188Rnfh Thyroxine Index2.1 ug/dL1.4 - 3.1 ug/dLDelaware County HospitalBvents Phone: Insulin, totalOrdered By: Louise Lemos on 10-01-2020 Typnuzs30.6 mU/LMInsuritas Phone: Insulin Zhlukqt8244Epsqg Health Work Phone: Insulin Reference Range:Above [employer] Phone: comment on above:Fastin.6-24.9 30 min: 20-112 60 min: 29-88 90 min: 26-84 120 min: 22-79 [employer] Phone: laboratory - Chemistry and Chemistry - challenge Ordered By: Louise Ramseybruna on 75-81-4808ZFF/1.73 sq M.predicted MDRD (S/P/Bld) [Vol rate/Area][employer] Phone: comment on above:Average GFR for <20 years old not available. Chronic Kidney Disease: <60 mL/min/1.73sq m Kidney failure: <15 mL/min/1.73sq m eGFR calculated using average adult body mass. Additional eGFR calculator available at: http://www.[employer]/multiple_crcl_2012.htm Stage 1: Some kidney damage normal GFR Stage 2: Mild kidney damage GFR 60-89 Stage 3: Moderate kidney damage GFR 30-59 Stage 4: Severe kidney damage GFR 15-29 Stage 5: Severe kidney damage GFR <15 ESRD - chronic treatment by dialysis or transplant Lipid PanelOrdered By: Louise Lemos on 68-57-5197Acrhhkfkeaz [Mass/Vol]150 mg/dL <200Above Security Phone: comment on above: Cholesterol Guidelines: <200 Desirable 200-240 Borderline >240 Undesirable Cholesterol in HDL [Mass/Vol]57 mg/dL>40Above Security Phone: comment on above: HDL Guidelines: <40 Undesirable 40-59 Borderline >59 Desirable Cholesterol in LDL [Mass/Vol]78 mg/dL0 - 130 mg/dLAbove Security Phone: comvxuz on above: LDL Guidelines: <100 Desirable 100-129 Near to/above Desirable 130-159 Borderline >159 Undesirable Direct (measured) LDL and calculated LDL are not interchangeable tests. Cholesterol in VLDL [Mass/Vol]NOT REPORTED1 - 30 mg/dLAbove Security Phone: cholesterol.total/Cholesterol in HDL [Mass ratio]2.6 {ratio}<5MerBvents Phone: Triglyceride [Mass/Vol]73 mg/dL<150Del[facility] HospitalBvents Phone: comment on above: Triglyceride Guidelines: <150 Desirable 150-199 Borderline 200-499 High >499 Very high Based on AHA Guidelines for fasting triglyceride, January 2012. Above [employer] Phone: no Panel InformationOrdered By: Louise Lemos on 28-20-1547GrmohAbove Security Phone: [facility] Phone: T3, UptakeOrdered By: Louise Lemos on 10-01-2020 Thyroxine Eojhip99.66 %22.5 - 37.0 %Above Security Phone: [facility] Phone: T4Ordered By: Louise Lemos on 51-53-5353J5 [Mass/Vol] 7.5 ug/dL4.5 - 10.9 ug/dLDelaware County HospitalBvents Phone: TSH without ReflexOrdered By: Louise Lemos on 45-38-5816LFV Qn2.23 m[IU]/LMpremier health upper valley medical centerAlchemyAPI Phone: no Panel InformationOrdered By: Thierry Braun on 69-42-7465Ubeb ankle: 1. Possible osteochondral lesion at the medial talar dome. This can be further assessedwith CT given that MRI with generated susceptibility artifact in the region of interest. 2. Threaded screws in the talus. Evidence of prior medial malleolus fracture ORIF. 3. Mild soft tissue edema at the medial ankle. No acute fracture or dislocation. Left foot: 1. Threaded screws in the medial malleolus and talus. Hardware appears intact. 2. 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 Possible osteochondral lesion at the medial talar dome. Threaded screws in the medialmalleolus which could be related to prior ORIF. Ankle mortise appears intact. Mild soft tissue edema at the medial ankle. No acute fracture or dislocation. No tibiotalar joint effusion. Boehler's angle is maintained. Left foot: Evidence of prior medial malleolus fracture ORIF with threaded screws. There are threaded screws extending through the talus. No tibiotalar joint effusion. Boehler's angleis maintained. Osseous alignment is normal. Hardware appears intact. No acute fracture or dislocation. No marginal erosions.Above Security Phone: e, [facility] Incoming Radiant Results From [facility] - 08/26/2020 12:30 PM EDT EXAMINATION: TWO [...] intact. 2. No acute fracture or dislocation. [facility] HospitalAlchemyAPI Phone: basic Metabolic Panelon 45-69-7725Vwdmm gap [Moles/Vol]10 mmol/L9 - 17 mmol/LMercy [employer] Work Phone: bun/Cre Jnqcc07Gidcc [employer] Work Phone: calcium [Mass/Vol]9.9 mg/dL8.4 - 10.2 mg/dLDelaware County HospitalBvents Phone: Ehloride [Moles/Vol]101 mmol/L98 - 107 mmol/LMercy [employer] Work Phone: cO2 [Moles/Vol]27 mmol/L20 - 31 mmol/LMPick1y [employer] Work Phone: creatinine [Mass/Vol]0.61 mg/dL0.5 - 0.9 mg/dLDelaware County HospitalBvents Phone: GFR AmericanNOT REPORTED>60 mL/minDelaware County HospitalBvents Phone: GFR Non- AmericanPediatric GFR requires additional information. Refer to [employer] website for calculator.>60 mL/minDelaware County HospitalBvents Phone: Glucose [Mass/Vol]77 mg/dL60 - 100 mg/dLDelaware County HospitalBvents Phone: potassium [Moles/Vol]4.3 mmol/L3.6 - 4.9 mmol/LMercy [employer] Work Phone: sodium [Moles/Vol]138 mmol/L135 - 144 mmol/LMercy [employer] Work Phone: Urea nitrogen [Mass/Vol]10 mg/dL5 - 18 mg/dLDelaware County HospitalBvents Phone: cBC Auto Differentialon 00-26-6990Drxhnukpq (Bld) [#/Vol]0.04 10*3/uLMercy Health Work Phone: basophils/100 WBC (Bld)0 %0 - 2 %Above [employer] Phone: differential TypeNOT REPORTEDDelaware County HospitalBvents Phone: eosinophils (Bld) [#/Vol]0.14 10*3/MaderaBvents Phone: eosinophils/100 WBC (Bld)1 %1 - 4 %Above [employer] Phone: erythrocyte distribution width (RBC) [Ratio]13.1 %11.8 - 14.4 %[employer] Phone: Hematocrit (Bld) [Volume fraction]41.6 %36.3 - 47.1 % [employer] Phone: Hemoglobin (Bld) [Mass/Vol]13.5 g/dL11.9 - 15.1 g/dL [employer] Phone: Immature granulocytes (Bld) [#/Vol]0 %0Del[facility] HospitalBvents Phone: Immature granulocytes (Bld) [#/Vol]10*3/MaderaBvents Phone: Interpretation and review of laboratory results AbnormalDelaware County HospitalBvents Phone: lymphocytes (Bld) [#/Vol]2.13 10*3/MaderaBvents Phone: Lymphocytes/100 WBC (Bld)21 %Low25 - 45 %[employer] Phone: MCH (RBC) [Entitic mass]28.2 pg25 - 35 pgDelaware County HospitalBvents Phone: MCHC (RBC) [Mass/Vol]32.5 g/dL28.4 - 34.8 g/dLDelaware County HospitalBvents Phone: MCV (RBC) [Entitic vol]87.0 fL78 - 102 fLDelaware County HospitalBvents Phone: Monocytes (Bld) [#/Vol]0.95 10*3/Spotzer Phone: Monocytes/100 WBC (Bld)9 %High2 - 8 %Above Security Phone: Platelet mean volume (Bld) [Entitic vol]10.9 fL8.1 - 13.5 fLDelaware County HospitalBvents Phone: Platelets (Bld) [#/Vol]262 10*3/Above Security Phone: Platelets (Bld) [#/Vol]NOT REPORTEDDelaware County HospitalBvents Phone: RBC (Bld) [#/Vol]4.78 10*6/uL3.95 - 5.11 m/Spotzer Phone: RBC morphology finding Nom (Bld)NOT REPORTEDDelaware County HospitalBvents Phone: Segmented neutrophils/100 WBC (Bld)69 %High34 - 64 % Above [employer] Phone: Segs Absolute6.97Del[facility] HospitalBvents Phone: WBC (Bld) [#/Vol]0.0 10*3/uL0.0 per 100 WBCDelaware County HospitalBvents Phone: WBC (Bld) [#/Vol]10.3 10*3/uLDelaware County HospitalBvents Phone: WBC MorphologyNOT REPORTEDDelaware County HospitalBvents Phone: R-psnop, quantitativeon 77-69-4918P-Dimer, Quant0.33 Above [employer] Phone: Comment on above: When combined with [...] in patients with distal DVT. Metabolic Panelon 97-84-0381YQL/1.73 sq M predicted among non-blacks MDRD (S/P/Bld) [Vol rate/Area]Above Security Phone: comment on above:Stage 1: Some kidney damage normal GFR Stage [...] body mass. Additional eGFR calculator available at: http://www.[employer]/multiple_crcl_2012.htm Troponinon 14-91-6442Txwdtrrx I.cardiac [Mass/Vol]NOT REPORTEDAbove Security Phone: Troponin T.cardiac [Mass/Vol]NOT REPORTED<0.03 ng/mL Above [employer] Phone: Troponin, High Sensitivity<60 - 14 ng/LMInsuritas Phone: comment on above: High Sensitivity Troponin values cannot be compared with other Troponin methodologies. Patients with high levels of Biotin oral intake (i.e >5mg/day) may have falsely decreased Troponin levels. Samples collected within 8 hours of biotin intake may require additional information for diagnosis. XR CHEST PORTABLEon 49-02-2016Etp, Mhpn Incoming Radiant Results From VastParke/Pacs - 06/13/2020 2:05 PM EST EXAMINATION: ONE [...] grossly intact. IMPRESSION: No acute cardiopulmonary pathology. Above [employer] Phone: eXAMINATION: ONE XRAY VIEW OF THE CHEST 06/13/2020 2:00 pm COMPARISON: 09/01/2013 HISTORY: ORDERING SYSTEM PROVIDED HISTORY: cp TECHNOLOGIST PROVIDED HISTORY: cp FINDINGS: Single portable frontal viewof the chest is submitted for review. The cardiac silhouette is normal in size. Limited low lung volume examination. Subtle axis/scarring within the right lower lung. No focal airspace consolidation,sizeable pleural effusion, or pneumothorax.. Trachea is midline. Visualized osseous structures and soft tissues are grossly intact.Above Security Phone: No acute cardiopulmonary pathology.Above [employer] Phone: XR FOOT LEFT (MIN 3 VIEWS)on 59-37-5534Yzbbnmafnte distribution width (RBC) [Ratio]Postop changes as above. Hardware intact. No acute disease.Above [employer] Phone: eXAMINATION: THREE XRAY VIEWS OF THE LEFT FOOT 06/13/2020 3:34 pm COMPARISON: None. HISTORY: ORDERING SYSTEM PROVIDED HISTORY: pain TECHNOLOGIST PROVIDED HISTORY: pain FINDINGS: 2 screws transfix the medial malleolus and 2 screws transfix the talus. Cortical margins intact. Alignment anatomic. Soft tissues unremarkable.Above Security Phone: edi, [facility] Incoming Radiant Results From [employer]astParke/[employer] - 06/13/2020 3:46 PM EST EXAMINATION: THREE XRAY VIEWS OF THE LEFT FOOT 06/13/2020 3:34 pm COMPARISON: None. HISTORY: ORDERING SYSTEM PROVIDED HISTORY: pain TECHNOLOGIST PROVIDED HISTORY: pain FINDINGS: 2 screws transfix the medial malleolus and 2 screws transfix the talus. Cortical margins intact. Alignment anatomic. Soft tissues unremarkable. IMPRESSION: Postop changes as above. Hardware intact. No acute disease. Above [employer] Phone: HCG,URINEon 30-77-6327Rcoj HCG ( test) Ql (U) NegativeNormalNegativeWayne Memorial HospitalComment on above:Result Comment: POCTPerformed By: #### HCGU #### [facility] [address] [place], [place] [address]JVIUZ METABOLIC PANELon 43-92-0991Xpspv gap [Moles/Vol]16 mmol/QTuoejy06 - 30Wayne Memorial HospitalComment on above:Performed By: #### BMP ####[facility] [place], [place] [address]Ejazwfm [Mass/Vol] 9.3 mg/dLNormal8.5 - 10.7Wayne Memorial HospitalComment on above:Performed By: #### BMP ####[facility] [facility] [place], [place] [address]Jztqvqdd [Moles/Vol]101 mmol/XYenoof67 - 107Wayne Memorial HospitalComment on above: Performed By: #### BMP ####[facility] [place], [place] [address]Orkgupwwcr [Mass/Vol]0.55 mg/dLNormal0.50 - 0.90[facility] Comment on above:Performed By: #### BMP ####[facility] [facility] [place], [place] [address]Cxhgjff [Mass/Vol]116 mg/uHOrzl92 - 99Wayne Memorial HospitalComment on above:Performed By: #### BMP ####[facility] [place], [place] [address]HLL9 (Bld) [Moles/Vol]23 mmol/PPjnjwq20 - 27Wayne Memorial HospitalComment on above:Performed By: #### BMP ####[facility] [place], [place] [address]Smkebopmh [Moles/Vol]3.9 mmol/LNormal3.5 - 5.3Wayne Memorial HospitalComment on above:Performed By: #### BMP ####[facility] [place], [place] [address]Nrrnwh [Moles/Vol]136 mmol/L Nvldos998 - 145Wayne Memorial HospitalComment on above:Performed By: #### BMP ####[facility] [place], [place] [address]Fqok nitrogen [Mass/Vol]11 mg/dLNormal6 - 23Wayne Memorial HospitalComment on above:Performed By: #### BMP ####[facility] [place], [place] [address]IBURB CULTURE, BACTERIALon 26-44-0988XILXG CULTURE, BACTERIALPATIENT: BLANKA FARIAS LOCATION: [address]#: [id number] : [birth year] AGE: SEX: F ORDERED BY: [place] NORTON SOURCE: Blood COLLECTED: 01/30/20 05:50 ANTIBIOTICS AT ERICA.: RECEIVED : 01/30/20 17:30 SITE: R E S U L T S BLOOD CULTURE, BACTERIAL FINAL 02/04/20 17:42 No Growth at 1 days No Growth at 2 days No Growth at 3 days No Growth at 4 days NO GROWTH - FINAL REPORTNoCrawley Memorial HospitalComment on above:Performed By: #### BLDC #### [facility] [address] [place], [place] [address]BBO AND DIFFERENTIALon 01-30-2020% AUTOMATED IMMATURE GRAN0.7 %Normal0.0 - 1.0Wayne Memorial HospitalComment on above:Result Comment: Immature Granulocyte Count (IG) includes promyelocytes, myelocytes and metamyelocytes but does not include bands. Percent differential counts (%) should be interpreted in the context of the absolute cell counts (cells/L).Performed By: #### CBCDF ####[address] [address]Azfjdrffm (Bld) [#/Vol]0.03 10*3/uLNormal0.00 - 0.10Wayne Memorial HospitalComment on above: Performed By: #### CBCDF ####[address] [address]Hepozaitt/100 WBC (Bld)0.1 %Normal0.0 - 1.0Wayne Memorial HospitalComment on above:Performed By: #### CBCDF ####[address] [address]Gddjarzzcrw distribution width (RBC) [Ratio]12.4 %Isrgds64.5 - 14.5Wayne Memorial HospitalComment on above:Performed By: #### CBCDF ####[address] [address]Vqaknplncw (Bld) [Volume fraction]40.0 %Veurmo49.0 - 46.0Wayne Memorial HospitalComment on above:Performed By: #### CBCDF ####[address] [address]Nzzfzntagj (Bld) [Mass/Vol]13.3 g/zZDlywwk70.0 - 16.0Wayne Memorial HospitalComment on above:Performed By: #### CBCDF ####[address] [address]Esvnfvxwgyw (Bld) [#/Vol]1.64 10*3/uLLow1.80 - 4.80Wayne Memorial HospitalComment on above:Performed By: #### CBCDF ####[address] [address]Cejsauzchla/100 WBC (Bld)7.8 % Gakfju70.0 - 48.0Wayne Memorial HospitalComment on above:Performed By: #### CBCDF ####[facility] [facility] CAMPUSDEMETRIA [place], [place] [address]XXAP (RBC) [Mass/Vol]33.3 g/uGWdciio74.0 - 37.0Way[facility] Memorial HospitalComment on above: Performed By: #### CBCDF ####[facility] [place], [place] [address]EYE (RBC) [Entitic vol]89 kJBbszir58 - 102UH [facility] River Psychiatric CenterComment on above:Performed By: #### CBCDF ####[place] [id number] [place], [place] [address]Pombeenbp (Bld) [#/Vol]1.06 10*3/uLHigh0.10 - 1.00Wayne Memorial HospitalComment on above:Performed By: #### CBCDF ####[address] [place], [place] [address]Tnejizcmh/100 WBC (Bld)5.1 %Normal3.0 - 9.0Wayne Memorial HospitalComment on above:Performed By: #### CBCDF ####[address] [address] [place], [place] [address]Hqpaxtygkma (Bld) [#/Vol]18.05 10*3/uLHigh1.20 - 7.70Wayne Memorial HospitalComment on above:Performed By: #### CBCDF ####[facility] [place] [address] Neutrophils/100 WBC (Bld)86.3 %Awkwfp45.0 - 69.0Way[facility] Memorial HospitalComment on above:Performed By: #### CBCDF ####[facility] [place], [place] [address]Vlqckyuvw (Bld) [#/Vol]325 10*3/zGGjraoh640 - 400Wayne Memorial HospitalComment on above:Performed By: #### CBCDF ####[address] [place], [place] [address]PBH (Bld) [#/Vol]4.50 x10E12/LNormal4.10 - 5.20Way[facility] Memorial HospitalComment on above:Performed By: #### CBCDF ####[facility] [facility] CAMPUSDEMETRIA [place], [place] [address]GIG (Bld) [#/Vol]20.9 10*3/uLHigh4.5 - 13.5Way[facility] Memorial HospitalComment on above:Performed By: #### CBCDF ####[facility] [facility] [place] [address] Consult-Medicineon 78-76-9813Uscxnrw-MedicineService: Service: Medicine Consult: Consult requested by (Attending [...] eager to return home. Patient is from [place] so no chart for comparison. 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 Objective Data: Objective Information: T PRBPSpO2 Value36.05505962/7294% Date/Time01/29 5: 5: 5: 5: 5:29 Range(36.1C [...] BUN / 136 101 11 / Glucose 116 H K+ HCO3- Creat \ 3.9 [...] to take a full strength aspirin daily Signature/Cosignature/Attestation: Note Completion: I am a: Resident/Fellow Attending [...] Last Updated: 31-Jan-2020 08:12 by Thierry Braun (DPM)[facility] CenterDischarge Planning Djcj3cs 89-49-4751Zdqoamgry Planning Drut8Lfypeqfxa Planning: Planned Dispositionhome AMPAC < 20no [place] of Choice Explainedyes Anticipated Discharge Acsa12-Ysi-3910 Discharge Planning 01/30/2020 0925: Transitional 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 Referral sent to [facility] via [employer]. Faye Crowe RN TCC Assessment: Discharge Planning Assessment Aspb51-Uoq-1244 Discharge Planning Assessment Completed byFaye Crowe RN TCC Primary Contact Name and NumberJessica-mom(1) Stated Reason for Admissionankle surgery(2) Arrived FromOR (2) PCPDr. Louise Lemos [facility] Adherence/Afford/Obtainyes InsuranceMMO Super Med Resource/Environmental Concernsnone(2) Anticipated Transition [place](2) Services Anticipated at Transitionnon(2) Electronic Signatures: Faye Crowe (RN) (Signed 30-Jan-2020 11:39) Authored: Discharge Planning, Assessment Last Updated: 30-Jan-2020 11:39 by Faye Crowe (CELIA) References: 1. Data Referenced From Patient Profile - Preop v2 29-Jan-2020 13:35 2. Data Referenced From Patient Profile - Pediatric v2 29-Jan-2020 19:41Normal [facility] HospitalDischarge Csvcdlx4af 10-78-4761Hubvdylld Profile2 Discharge Orders: Anticipated Discharge Date: Anticipated Discharge Znvv60-Gpk-7109 Hospital Providers: Provider RoleProvider Name Thierry Jaffe [...] Care Services Needed: yes Home Care Agency: [facility] [phone] Skilled Disciplines Ordered: RN/MANAGER CONTRACTING, PT Face to Face Encounter Completed: yes [...] FINAL REVIEW of Orders, Gold Form - Nuclear Waste Management Engineer Summary Thierry Braun) (Signed 30-Jan-2020 11:45) Authored: Home Care Orders, Provider FINAL REVIEW of Orders Faye Crowe (CELIA) (Signed 30-Jan-2020 11:33) Authored: Home Care Orders, Provider FINAL REVIEW of Orders Last Updated: 30-Jan-2020 11:45 by Thierry Braun (GERARDO)[facility] CenterAdmission Risk Screen - Pediatricon 89-30-3142Cquyucfcc Risk Screen - PediatricAdmission Screens: Patient Verification: New W ID Band [...] Able to be Assessed for Learningyes Educational Zvdho52un12th grade Factors Influence Readiness to Learnnone, ready to learn Factors Impact Ability to Learncognitive limitations Devices/Methods Used to Communicatenone Learning Preferencesverbal instruction Cultural Considerationsnone Developmental Considerationsnone Islam Considerationsnone Other Learnersmother Learning Assessment (Other Learner): Other learner availableyes Other Learner is Able to be Assessed for Learningyes Learnermother Factors Influencing Readiness to Learnnone, ready to learn Factors that Impact Ability to Learnnone Devices/Methods Used to Communicatenone Learning Preferencesverbal instruction Cultural Considerationsnone Developmental Considerationsnone Islam Considerationsnone Nutrition Risk Screen: Nutrition Screen forpediatric patient Nutrition Risk Screen (2 or more indicators, Order Nutrition Consult)no indicators present Nutrition Consult needed this visitno Can Patient Participate in Room Serviceyes Pain Screen: Pain Scalenumerical 0-10 (1) Pain Scale Educationteaching provided (1) Teaching Provided PedsPain Management PI sheet 689 Current Pain Level0 = None Acceptable Pain [...] Spiritual Screen: Are there any cultural, spiritual, latter-day practices/values/needs that are important for us to knowno [place] Suicide Peds: Screen patients 10 yo and [...] to do anything to end your lifeno [place] Suicide Risklow Optional Screens: Significant Indicatiors: Significant Indicators: Complete Electronic Signatures: Carmel Muñoz (CELIA) (Signed 29-Jan-2020 19:41) Authored: Admission Screens, Pressure Injury, Optional Screens Last Updated: 29-Jan-2020 19:41 by Carmel Muñoz (CELIA) References: 1. Data Referenced From Patient Profile - Preop v2 29-Jan-2020 13:35NormalUH [facility] CenterCORONAVIRUS 2019, SCREEN ASYMPTOMATICon 01-29-2020 CORONAVIRUS 2019,PCRNOT DETECTEDNormalNot DetectedWayne Memorial Hospital Comment on above:Result Comment: This assay is designed to detect the RdRp gene of SARS-CoV-2 via nucleic acid amplification. A Not Detected result does not preclude COVID-19 infection since the adequacy of sample collection and/or low viral burden may result in presence of viral nucleic acids below the clinical sensitivity of this test method. Fact sheet for providers: www.fda.gov/media/787179/download Fact sheet for patients: www.fda.gov/media/775225/download This test has received FDA Emergency Use Authorization (EUA) and has been verified by [facility]. This test is only authorized for the duration of time that circumstances exist to justify the authorization of the emergency use of in vitro diagnostic tests for the detection of SARS-CoV-2 virus and/or diagnosis of COVID-19 infection under section 564(b)(1) of the Act, 21 U.S.C. 360bbb-3(b)(1), unless the authorization is terminated or revoked sooner. [facility] is certified under CLIA-88 as qualified to perform high complexity testing. Testing is performed in the [facility] laboratory located at [address] [place] [address].Performed By: #### COVSC #### [place], [place] [address]Lab Specimen SourceNasal, NasopharyngealNormalUH [facility]iatric CenterComment on above:Performed By: #### COVSC #### [address] Surgical Pathologyon 19-21-2900Fbgftr Surgical Pathology Name BLANKA FARIAS Pathologist: THIERRY FOSNECA MD Date of Procedure: 01/29/2020 Date Received: 02/01/2020 Date Reported 02/05/2020 Submitting Physician: THIERRY BRAUN DPM Location: [facility] Surg Other External # FINAL DIAGNOSIS A. [...] No grossly necrotic bone is identified. A plastic products sales representative section is submitted in one cassette following decalcification. N Gross dissection performed at: [facility] Department of Pathology [address] [place] [address] jaylenen/02/01/2020 [facility] Department of Pathology [address] [place], [place] [address]Comment on above:Performed By: #### GSP ####[facility] Surgical [address] [place], [place] [address]Operative Reports - [facility] 80-80-1229Qpotiq[place] [address] Patient Name: BLANKA FARIAS : 2000 Date of Service: 01/29/2020 Patient Location: [address] Patient Type: O Surgeon: Thierry Braun DPM Report Type: Operative Reports LOCATION: [facility]. SURGEON: Thierry Braun DPM BAIT MAKER(S): 1. Nanci Cleary DPM PGY-5 2. Az [...] options. She was sent to me from [place], [place] for second opinion, and the patient [...] distal medial malleolus, and we did a ctve-kewl-kpmk repair of the ligament, keeping it tight. [...] make a contact in her area in [place], [place] to do some followup. Thierry Braun DPM EST TT: 01/31/2020 09:56 AM EST DICTATION NUMBER: [id number] HANY JOB NUMBER: [id number] CC: LOUISE LEMOS Electronic Signatures: Thierry Braun (GERARDO) (Signed on 05-Feb-2020 06:35) Authored Unsigned, Draft (SYS GENERATED) (Entered on 31-Jan-2020 09:56) Entered Last Updated: 05-Feb-2020 06:35 by Thierry Braun (GERARDO)[facility] CenterPatient Profile - Pediatric v2on 25-38-6300Kpiyyjg Profile - Pediatric v2 Profile: Initial Info: How to be AddressedMartina(1) Parent NameJessica Spoken Language PreferredEnglish (1) Source of Informationpatient; family Legal Custodianmother Are you currently using the Personal Electronic Health Record or MYUHCAREno Are you interested in learning more about [facility] for the management of your healthnot at [...] Concernsnone Primary Caregivermother Lives Withmother [facility] Anticipated at Transitionnone School/Yztqwyi66hz grade/high school senior Concerns Regarding School Performance/Peer [...] From Patient Profile - Preop v2 29-Jan-2020 13:35[facility] CenterPatient Profile - Preop v2on 41-92-3676Xajbndp Profile - Preop z0Guopvto: Initial Info: How to be AddressedMartina Spoken Language PreferredEnglish Are you currently using the Personal Electronic Health Record or Simple EmotionCAREno Are you interested in learning more about MYCARE for the management of your healthdeclined Stated Reason for AdmissionL ankle repair Primary Contact Name and NumberOvi Patient Belongingsin pacu Medications Brought to Hospitalno General Health: Patient or Family Member Reaction to Anesthesiano previous reaction Health Mgmt: Symptoms/Conditions Managed at [facility] Are You Currently Breastfeedingno Barriers to Managing Healthnone Relationship/Environ: Resource/Environmental Concernsnone Substance: Current or Former Substance Use never: Cigarette/Tobacco, e-Cigarette/Vaping, Alcohol YES: Street Drugs Street Drug/Inhalant/ Medication Use Statuscurrent street drug/inhalant/medication abuse Street Drug/Medication/ Inhalant Typemarijuana Risk Screens: [...] Learning Preferencesverbal instruction Cultural Considerationsnone Developmental Considerationsnone Islam Considerationsnone Other learner availableno [place] RiskPatient location auto qualifies him/her for HIGH RISK. Are there any cultural, spiritual, latter-day practices/values/needs that are important for us to [...] Information Last Updated: 29-Jan-2020 14:14 by Sandrine Jack)[facility] CenterPreop Checkliston 54-85-4350Kuyqx ChecklistPreop Checklist: Preop Checklist: Arrival Dlrm31-Kod-4084 Arrival Time11:29 Procedure TypeL foot osteotomy NPO Dtspah76-Hqw-9529 00:00 ID Band Onyes Consent Signedyes H&P [...] Checklist Last Updated: 29-Jan-2020 13:27 by Sandrine Jack)[facility] CenterMRI ANKLE LEFT WO CONTRASTon . Osteochondral lesion/defect along the medial talar dome with mild associated chronic collapse ofthe medial talar dome measuring 9 mm x 1.6 cm in greatest transverse and AP dimensions with mild subjacent subcortical cystic changes. 2. Mild degenerative changes of the tibiotalar joint. 3. No acute fracture or dislocation. No acute ligamentous injury.[facility], KYEXAMINATION: MRI OF THE LEFT ANKLE WITHOUT CONTRAST, 02/09/2019 7:29 am TECHNIQUE: Multiplanar multisequence MRI of the left ankle was performed without the administration of intravenous contrast. COMPARISON: Left ankle radiographs performed on 01/21/2019 HISTORY: ORDERING SYSTEM PROVIDED HISTORY: Sprain of tibiofibular ligament of left ankle, sequela TECHNOLOGIST PROVIDED HISTORY: Is the patient?->No 18-year-old female with sprain of tibiofibular ligament of left ankle FINDINGS: SYNDESMOTIC LIGAMENTS: The anterior-inferior tibiofibular ligament, interosseous membrane and posterior- inferior tibiofibular ligaments are normal. LATERAL COLLATERAL LIGAMENT COMPLEX: The anterior talofibular ligament, calcaneofibular ligament and posterior talofibular ligaments are without acute abnormality. DELTOID LIGAMENT COMPLEX: The superficial and deep components of the deltoid ligament complex are normal. SINUS TARSI AND SPRING LIGAMENT: The fat plug within the sinus tarsi is preserved and the interosseous and cervical ligaments are normal. The navicular- calcaneal (spring) ligament is without acute abnormality. MEDIAL TENDONS: The posterior tibialis, flexor digitorum longus and flexorhallucis longus tendons are intact. LATERAL TENDONS: The peroneus longus and brevis tendons are intact. ANTERIOR TENDONS: The tibialis anterior, extensor hallucis longus and extensor digitorum longustendons are normal in position, morphology and signal. [...] fluid collection identified within the visualized soft tissues.[facility] [place], [place], Mhpn Incoming Radiant Results From [employer] - 02/09/2019 9:18 AM EDT EXAMINATION: MRI [...] fracture or dislocation. No acute ligamentous injury. [place], [place] Vital Signs Date TimeVital SignValuePerforming KiohcthfnHpukmqfb62-17-9508 11:12-0500Body xjqzve003.72 cmLouise Lemos MD Work Phone: [phone]11-06-2025 11:12-0500 Body mass index (BMI) [Ratio]35.9 kg/h2PlcvwytLouise Lemos MD Work Phone: [phone]11-06-2025 11:12-0500 Body spcfxi671.04 kgLouise Lemos MD Work Phone: [phone])[address]11-06-2025 11:12-0500 Diastolic blood htsblofo46 mm[Hg]Louise Lemos MD Work Phone: [phone])047[address]11-06-2025 11:12-0500 Heart rate64 /Muriel Lemos MD Work Phone: [phone])[address]32 [address]11-06-2025 11:12-0500 SaO2% (BldA) [Mass fraction]98 %Louise Lemos MD Work Phone: [phone])47432 [address]11-06-2025 11:12-0500 Systolic blood vchvdibi371 mm[Hg]Louise Lemos MD Work Phone: 1(487)165-[address] [place], [place] 7938010-30-2025 11:13-0400 Body .7 cmAmichel Johnson MD MPH Work Phone: [phone])[address]30 [address]10-30-2025 11:13-0400Body mass index (BMI) [Ratio]36.34 kg/j0SzuxhErinn Johnson MD MPH Work Phone: [phone])[address]10-30-2025 11:13-0400Body jjuckk066.41 kgErinn Johnson MD MPH Work Phone: [phone])[address] [place], [place] 6767210-30-2025 11:13-0400Diastolic blood fulylkco69 mm[Hg]rEinn Johnson MD MPH Work Phone: 1(681)[address] [place], [place] 6767210-30-2025 11:13-0400Heart rate 71 /minErinn Johnson MD MPH Work Phone: [phone])[address] [place], [place] 6767210-30-2025 11:13-0400 Respiratory rate18 /Tressa Johnosn MD MPH Work Phone: [phone])[address] [place], [place] 6767210-30-2025 11:13-0400Systolic blood ncydbwvq144 mm[Hg]Erinn Johnson MD MPH Work Phone: 1(167)[address]10-02-2025 11:30-0400Body ceshgccsgpu61.5 [degF]Mame Schmidt MD Work Phone: [facility]10-02-2025 11:30-0400Diastolic blood suymqmce04 mm[Hg]Mame Schmidt MD Work Phone: [facility]10-02-2025 11:30-0400Heart rate 94 /Ramona Schmidt MD Work Phone: [facility]10-02-2025 11:30-0400 Respiratory rate21 /Ramona Schmidt MD Work Phone: [facility]10-02-2025 11:30-7838CnD6% (BldA) [Mass fraction]94 %Mame Schmidt MD Work Phone: 1(491)810-[facility]10-02-2025 11:30-0400Systolic blood jkcgxoko218 mm[Hg]Mame Schmidt MD Work Phone: [phone] [place], [place] [address]10-02-2025 06:59-0400Body mass index (BMI) [Ratio]34.43 kg/l9TzfjkcwMame Schmidt MD Work Phone: [phone])[address]10-02-2025 06:59-0400Body wvccso297.7 kgMame Schmidt MD Work Phone: 1([phone])[address]10-01-2025 13:33-0400Body ahdirk756.7 cmMame Schmidt MD Work Phone: [phone]09-29-2025 10:59-0400Body yqlalr095.7 Billy Arevalo MD Work Phone: [facility]09-29-2025 10:59-0400Body mass index (BMI) [Ratio]30.41 kg/f7OppjhCarli Arevalo MD Work Phone: [facility]09-29-2025 10:59-0400Body .72 kgCarli Arevalo MD Work Phone: [facility]12-10-2024 17:17-0500Diastolic blood nglqexvo08 mm[Hg]Thierry Braun DPM Work Phone: [facility]12-10-2024 17:17-0500 Heart rate92 /minThierry Braun DPM Work Phone: [facility]12-10-2024 17:17-0500 Respiratory rate17 /minThierry Braun DPM Work Phone: [facility]12-10-2024 17:17-0500 SaO2% (BldA) [Mass fraction]98 %Thierry Nicholszoon DPM Work Phone: [facility]12-10-2024 17:17-0500 Systolic blood vxugpmjf404 mm[Hg]Thierry Nicholszoon DPM Work Phone: [facility]12-10-2024 16:47-0500 Body vfwnlqwkogr48.2 [degF]Thierry Nicholszoon DPM Work Phone: [facility]12-10-2024 11:19-0500 Body eenvjl411.7 cmThierry Mendeszoon DPM Work Phone: [facility]12-10-2024 11:19-0500 Body mass index (BMI) [Ratio]31.93 kg/m2Mark Mendeszoon DPM Work Phone: [facility]12-10-2024 11:19-0500 Body gszbii07.25 kgMark Mendeszoon DPM Work Phone: [facility]11-20-2024 12:49-0500 Body zcfnbo973.7 cmThierry Mendeszoon DPM Work Phone: [facility]11-20-2024 12:49-0500 Body mass index (BMI) [Ratio]32.69 kg/m2Mark Mendeszoon DPM Work Phone: [facility]11-20-2024 12:49-0500 Body ommnpkeoqfj54.1 [degF]Thierry Nicholszoon DPM Work Phone: [facility]11-20-2024 12:49-0500 Body tqymzm59.52 kgMark Mendeszoon DPM Work Phone: [phone]11-20-2024 12:49-0500 Diastolic blood jopvcgfl81 mm[Hg]Thierry Nicholszoon DPM Work Phone: [facility]11-20-2024 12:49-0500 Heart rate68 /minThierry Braun DPM Work Phone: [facility]11-20-2024 12:49-0500 Respiratory rate17 /minThierry Braun DPM Work Phone: [facility]11-20-2024 12:49-0500 SaO2% (BldA) [Mass fraction]97 %Theirry Braun DPM Work Phone: [facility]11-20-2024 12:49-0500 Systolic blood uktdqqkn629 mm[Hg]Thierry Braun DPM Work Phone: [facility]10-11-2024 11:53-0400 Body vmwjqa554.72 cmThierry Braun Work Phone: [facility]02-71-8426 11:53-0400Body mass index (BMI) [Ratio]31.17 kg/m2Thierry Braun Work Phone: [facility] Nbcs49-94-8193 11:53-0400Body weight 92.99 kgThierry Braun Work Phone: [facility] Aftz38-68-8090 15:08-0400Body height 172.7 cmRlenore Jacobson MD Work Phone: [employer]06-11-2022 15:08-0400Body mass index (BMI) [Percentile] Per age and sex92.12 %Chuy Jacobson MD Work Phone: [employer] ZJKUTY23-46-6973 15:08-0400Body mass index (BMI) [Ratio]28.89 kg/f1XvtwrvnChuy Jacobson MD Work Phone: [employer]06-11-2022 15:08-0400Body czqviulpoxb50.81 [degF]Chuy Jacobson MD Work Phone: [employer]06-11-2022 15:08-0400Body toliqv08.18 kgChuy Jacobson MD Work Phone: [employer]06-11-2022 15:08-0400Diastolic blood mm[Hg]Chuy Jacobson MD Work Phone: [employer]06-11-2022 15:08-0400Heart rate99 /Dolores Jacobson MD Work Phone: [employer]06-11-2022 15:08-0400 Respiratory rate16 /minChuy Jacobson MD Work Phone: [employer]06-11-2022 15:08-6399VrF8% (BldA) [Mass fraction]100 %Chuy Jacobson MD Work Phone: [employer] [facility] CENTERTapHomeRUXVYI37-19-3624 15:08-0400Systolic blood zcxvngai793 mm[Hg]Chuy Jacobson MD Work Phone: [employer] [facility]ENTERTapHomeIFEJGS90-46-8145 16:30-0500BP Yjoxkwjjl36 mm[Hg]FayeTwicketer Work Phone: 1(400) 970-335702-15-2021 16:30-0500BP Uqeswlse791 mm[Hg]FayeYeahka Work Phone: 1(617) 178-134402-15-2021 16:30-0500Pulse (Heart Rate)61 /minIron Station iZ3DDelaware County HospitalSkimbl Work Phone: 1(726) 860-631902-15-2021 16:30-0500Pulse Nilylbbw71 %FayeYeahka Work Phone: 1(651) 980-976502-15-2021 16:30-0500Respiratory Rate20 /minSt. Clare'S HospitalPlayDataDelaware County HospitalSkimbl Work Phone: 1(900) 815-800902-15-2021 13:53-0500Body Fpsfhzkwkku12.91 [degF] FayePlayDataDelaware County HospitalSkimbl Work Phone: 1(294) 816-435702-15-2021 13:53-0500Body esamci96.79 kgSt. Clare'S HospitalYeahka Work Phone: 1(284)889-544003-545210-89282263-72-6897 18:28-0400Body Kmbcmflmkeb53.3 [degF] Louise [facility], LN37-46-8042 18:28-0400BP Cswplkugk66 mm[Hg]Louise Crisostomopremier health upper valley medical centerbruna [facility], IA41-41-1163 18:28-0400BP Weesgiwj658 mm[Hg]Louise Lemos [facility], BL98-75-5792 18:28-0400Pulse (Heart Rate)98 /Muriel bruna [facility], GE38-70-7280 18:28-0400Pulse Dljxolry68 %Louise [facility], PN63-72-0338 18:28-0400Respiratory Rate15 /[facility]auraOhio [facility], [place] Encounters Encounter DateEncounter TypeCare ProviderFacilityStart: 03-04-2025 End: 95-65-0037hxdgyesulyDlbgyap M Hoy MD Work Phone: [phone]-Nyhcicvve[address] [place] [address] NeurologyStart: 03-04-2025 End: 20-31-6739Aiumwpn encounter procedureNicole Brigitte [facility] Neurology Work Phone: Start: 02-25-2025 End: 42-63-8763Cwfvvz consultation new/estab patient 60 Tressa Johnson MD MPH Work Phone: [facility] HospitalComment on above:Neck pain (Primary Dx); Chronic midline thoracic back pain; Polyarthritis; Other chronic pain; Empty sella turcica; Chronic nonintractable headache, unspecified headache typeStart: 02-25-2025 End: 15-02-7769ivqxsvwbzwFKWKUNico JOHNSONSouthview Medical Centertart: 02-09-2025 End: 06-49-8085Rqyudzwmy identifierOrthoAlliOswego Medical Center Work Phone: Start: 02-09-2025 End: 15-65-7985Vlumiwbwf identifierThierry Braun Work Phone: [facility]ENTERI TibbieStart: 02-09-2025 End: 01-15-2146Drnoxp outpatient visit 15 minutesThierry Braun Work Phone: POS[facility] TibbieStart: 44-20-1328xuqhndntbgQcpv J MendeszoonPrecision Orthopaedic SpeciltiesStart: 02-04-2025 End: 55-11-7564ikkryvxnioAAFSWDBLiberty Regional Medical Center HospitalStart: 02-04-2025 End: 35-45-3924Jkxbigerui hospital visit by physicianSt. [facility] [place] Laboratory Schedule [facility] LABComment on above:ArrivedStart: 39-26-6249wganqydxqlSelect [facility] Ambulatory PPGStart: 10-41-0072hslcqmyzteMVBLSainte Genevieve County [facility] Hospital Ambulatory PPGStart: 01-27-2025 End: 65-82-7065Rthapmvuy Stacie Cody RN Work Phone: [facility] NeuroSurgeryComment on above: ResultsStart: 01-27-2025 End: 93-44-5326ymkypbhcohJKXTDAZAvita Health Systemtart: 01-27-2025 End: 82-84-9206Ulijieshoo and management of inpatientAlljulia Ordoñez MD Work Phone: [facility] - Observation UnitComment on above:Migraine (Primary Dx); Blurred vision; Acute cystitis without hematuriaStart: 09-41-5626sdtfuiqjqdKYHOHNCRoyal C. [facility] Ambulatory PPGStart: 01-25-2025 End: 84-25-3749hjbcmkttyzSSNDLDoernbecher Children's Hospital Ambulatory PPGStart: 01-25-2025 End: 30-00-4012Vkjgru outpatient new 30 minutesCarli Arevalo MD Work Phone: [facility] NEUROSURGERYComment on above: Fibromyalgia (Primary Dx)Start: 79-32-5939shlfbjcbzbZEFQANQMid [facility] Medical Center Ambulatory PPGStart: 53-08-7930rbdfdfoicdFGQRGXYMid [facility] Center Ambulatory PPGStart: 01-07-2025 End: 70-07-8607loxagwxfbuJANDZHUCleveland Clinic Mentor Hospitaltart: 01-04-2025 End: 02-52-1791Grwgmknkq identifierMark J Mendeszoon Work Phone: POSI ChardonStart: 05-74-9410ebtchoyzvoLpju J MendeszoonPrecision Orthopaedic SpeciltiesStart: 96-79-5896yofmplkhvyWdgi J MendeszoonPrecision Orthopaedic SpeciltiesStart: 88-31-6770sezayanubfRwax J MendeszoonPrecision Orthopaedic SpeciltiesStart: 46-27-5968nzpygnzspeEirq J MendeszoonPrecision Orthopaedic SpeciltiesStart: 38-41-3602wjrzeovmuzPiod J MendeszoonPrecision Orthopaedic SpeciltiesStart: 27-60-2189dyavnraztdGahw J MendeszoonPrecision Orthopaedic SpeciltiesStart: 97-12-0549efgnnsatihOqmy J MendeszoonPrecision Orthopaedic SpeciltiesStart: 54-39-7136acmjfusatpAqxw J MendeszoonPrecision Orthopaedic SpeciltiesStart: 10-93-1772ltkjjczamcTkmo J MendeszoonPrecision Orthopaedic SpeciltiesStart: 92-48-7502dpjadvzawvHudy J MendeszoonPrecision Orthopaedic SpeciltiesStart: 09-22-2024 End: 84-12-7457fepqeqymzjWUJBXBK [facility] HospitalStart: 09-22-2024 End: 70-30-7177Otpnywzrg for general adult medical examination without abnormal findingsLOUISE Mejia [facility] HospitalStart: 09-22-2024 End: 36-28-8490Dgogekbmvh hospital visit by Nisha Lemos MD Work Phone: [facility] LABStart: 09-22-2024 End: 33-42-2955foxnghswwaXGNSRXG [facility] HospitalStart: 09-22-2024 End: 52-38-5945Sqdizedgie hospital visit by Nisha Lemos MD Work Phone: [facility] LABStart: 54-16-2788ebjcimqiobNaio J MendeszoonPrecision Orthopaedic SpeciltiesStart: 09-04-2024 End: 36-36-4983Kyywvlgjo identifierMark J Mendeszoon Work Phone: POSI TibbieStart: 09-04-2024 End: 99-83-6332Mehpwc outpatient visit 25 minutesMark J Mendeszoon Work Phone: POSI TibbieStart: 52-45-2640yakmfwlwytHvbc J MendeszoonPrecision Orthopaedic SpeciltiesStart: 32-40-1337hbfvthbzvlRsot J MendeszoonPrecision Orthopaedic SpeciltiesStart: 64-27-7213jvzulvyfidBtkm J MendeszoonPrecision Orthopaedic SpeciltiesStart: 08-24-2024 End: 65-39-2709sfymfwyviuUgyqzmi Michael Hoy MDFacility:ENT SpecStart: 20-62-4490avdbjhqprrEqog J MendeszoonPrecision Orthopaedic SpeciltiesStart: 08-10-2024 End: 43-62-0683wealvmnurdZNSYBDK M HOYMercy Pollok HospitalStart: 08-10-2024 End: 19-98-1580Lnkpfcnrjz hospital visit by physicianMth Xr [address] RadiologyComment on above:Left ankle pain, unspecified chronicity Left ankle pain, unspecified chronicity; PainStart: 08-06-2024 End: 29-20-1034jvvgqumubnZOLNIQO M HOYMercy Pollok HospitalStart: 08-06-2024 End: 53-31-2523Ufuydtpqeq [facility] Holman [address] [place] [address] RadiologyComment on above:Left knee pain, unspecified chronicity Start: 93-51-3117gdyulxgcoqJgtw J MendeszoonPrecision Orthopaedic Specilties Start: 53-63-8556pmutgxynxoJnyq J MendeszoonPrecision Orthopaedic Specilties Start: 07-20-2024 End: 68-13-4439tyuurocokxJDKTNAP M HOYMercy Pollok HospitalStart: 07-20-2024 End: 00-34-5727Sehlnhpvev hospital visit by Nisha Lemos MD Work Phone: [facility] LABStart: 79-45-8884obgvffzkhqVnyx J MendeszoonPrecision Orthopaedic SpeciltiesStart: 81-23-1575wzdnxqvoxnXyvb J MendeszoonPrecision Orthopaedic SpeciltiesStart: 05-20-2024 End: 50-46-2747Hzoneqkyp identifierMark J Mendeszoon Work Phone: POSI ChardonStart: 57-42-0841zofzmhxlnbQmph J MendeszoonPrecision Orthopaedic SpeciltiesStart: 05-07-2024 End: 73-67-7602Eheyewsek identifier[facility] [place] Work Phone: Start: 05-05-2024 End: 52-32-1246Tjbwug follow up visit related to original pxMark Mendeszoon DPM [facility] MexicoStart: 05-05-2024 End: 01-07-4610Bjnhjjupn identifierMark J Mendeszoon Work Phone: POSI TibbieStart: 88-50-5923cuccykfbpjQbnk J MendeszoonPrecision Orthopaedic SpeciltiesStart: 04-30-2024 End: 60-76-2900Hedqfczgt identifierMark J Mendeszoon Work Phone: POSM ChardonStart: 92-41-0322fdlrchrlwnCnwk J MendeszoonPrecision Orthopaedic SpeciltiesStart: 04-27-2024 End: 52-43-9636Btbuiobmd identifierMark J Mendeszoon Work Phone: POSI ChardonStart: 85-93-0830rkhmmqwnmsLyjq J MendeszoonPrecision Orthopaedic SpeciltiesStart: 04-24-2024 End: 93-69-6534Orjjykfjs identifierMark J Mendeszoon Work Phone: POSC ChardonStart: 93-22-7353rluuysoroeWfox J MendeszoonPrecision Orthopaedic SpeciltiesStart: 04-24-2024 End: 73-73-8131Whgtnakuo identifierMark J Mendeszoon Work Phone: POSI [facility] HospitaldonStart: 20-11-1412wvaqybitmtAoko J MendeszoonPrecision Orthopaedic SpeciltiesStart: 04-23-2024 End: 56-50-8202Wsvfdqbvx identifierMark J Mendeszoon Work Phone: POSI [facility] HospitaldonStart: 66-41-4057copqglwvajFblb J MendeszoonPrecision Orthopaedic SpeciltiesStart: 04-14-2024 End: 11-79-7167Gfcxhctlx identifierMark J Mendeszoon Work Phone: [facility] Hospitalart: 04-14-2024 End: 04-03-9804Sunbml follow up visit related to original pxThierry Braun DPM [facility] ChildrenStart: 41-69-6575dnwrodrsggBovb J MendeszoonPrecision Orthopaedic SpeciltiesStart: 04-13-2024 End: 93-94-1355Ieyoyjaxe identifierMark J Mendeszoon Work Phone: POSI [place]Start: 48-72-5414wnttauqwgmDyuy J MendeszoonPrecision Orthopaedic SpeciltiesStart: 04-09-2024 End: 67-47-4181Waitxpoeh identifierMark J Mendeszoon Work Phone: POSI [place]Start: 94-54-2273hhoybiixtlOfyp J MendeszoonPrecision Orthopaedic SpeciltiesStart: 04-08-2024 End: 53-28-4118Cjgvvlgjq identifierMark J Mendeszoon Work Phone: POSI [facility] HospitaldonStart: 51-85-6667jksuacypsxMxfz J MendeszoonPrecision Orthopaedic SpeciltiesStart: 04-07-2024 End: 00-21-2693ftiyncmszfYEBP J MENDESZOONChillicothe Hospitaltart: 04-07-2024 End: 82-89-7627Urnjjignpw hospital visit by physicianThierry Braun DPM Work Phone: [facility] ORComment on above:Secondary osteoarthritis, left ankle and footStart: 04-07-2024 End: 54-34-5282Ozdmeqwfe identifierMark Brigitte Schmitzon Work Phone: [facility] CenterStart: 84-82-9637byeleeqaeyNsca Brigitte MitchellrtAllianceStart: 04-06-2024 End: 27-20-8990vdhepnmmbjGDSRHZW Wyatt Laurenbruna [facility] HospitalStart: 04-06-2024 End: 87-82-4289Ekogdkllru hospital visit by Nisha Lemos MD Work Phone: MNKV LaboratoryStart: 38-65-6265ixbslealckLEZB Brigitte SCHMITZSouthern Ohio Medical Centertart: 03-23-2024 End: 44-06-8374kdzdledhtyJBQYBSW [facility] HospitalStart: 03-23-2024 End: 31-12-8935Smhyagjgcy hospital visit by Nisha Lemos MD Work Phone: OTGJ LaboratoryStart: 03-21-2024 End: 15-51-5346asztxaunbnHFVONEE [facility] HospitalStart: 03-21-2024 End: 08-96-7787Dciwmasyno hospital visit by Nisha Lemos MD Work Phone: MTEJ LaboratoryStart: 03-19-2024 End: 73-54-0028mfcvzlmnuySYUJECR [facility] HospitalStart: 03-19-2024 End: 67-64-9194Pmiluffyho hospital visit by Nsiha Lemos MD Work Phone: MNZE LaboratoryStart: 03-19-2024 End: 83-15-0147Artiazevj identifierMark Brigitte Braun Work Phone: POSI ChardonStart: 05-48-3316yhgvkpqrdoLbsi Brigitte BraunPrecision Orthopaedic SpeciltiesStart: 03-18-2024 End: 97-50-8881uggpdenkoaSPBM Brigitte SCHMITZSouthern Ohio Medical Centertart: 03-18-2024 End: 12-41-1708Dnqtakkgvm hospital visit by physicianThierry Braun DPM Work Phone: [facility] ORStart: 03-18-2024 End: 84-43-7146Tvhecyxlj identifierMark J Mendeszoon Work Phone: [facility] Departmenttart: 78-81-3490cezelsbtwuToir Brigitte MendeszoonOrthoAllianceStart: 03-17-2024 End: 83-80-2247Ntyugcrsg identifierMark J Mendeszoon Work Phone: POSI ChardonStart: 82-81-1559pnmracglngGjsu J MendeszoonPrecision Orthopaedic SpeciltiesStart: 03-16-2024 End: 90-77-9053Ztcuspzhh identifierMark Brigitte Mendeszoon Work Phone: POSI ChardonStart: 32-40-3264banhpigwmpTwgt J MendeszoonPrecision Orthopaedic SpeciltiesStart: 03-11-2024 End: 59-87-9753ybapjxqplsIUYLDNX MICHAEL [facility] Hospitaltart: 03-10-2024 End: 11-25-6518Acpigrlzv identifierMark Brigitte Mendeszoon Work Phone: POSI ChardonStart: 03-10-2024 End: 82-90-9925Neltfxsjv identifierMark J Mendeszoon Work Phone: POSI ChardonStart: 79-71-1971aczbgscautUlrn J MendeszoonPrecision Orthopaedic SpeciltiesStart: 98-50-3083umpyltnxqnDchp J MendeszoonPrecision Orthopaedic SpeciltiesStart: 02-27-2024 End: 24-88-9947Svgibqllm identifierMark J Mendeszoon Work Phone: POSN ChardonStart: 97-73-6214ujejcaasxzAtlc J MendeszoonPrecision Orthopaedic SpeciltiesStart: 02-14-2024 End: 76-34-5219Czbvvrcrg identifierMark J Mendeszoon Work Phone: zPortal POSIStart: 02-13-2024 End: 36-06-6865Bbiddipjw identifierMark J Mendeszoon Work Phone: POSI [place]Start: 02-12-2024 End: 33-59-6012Qusotvmuq identifierMark J Mendeszoon Work Phone: zPortal POSIStart: 02-12-2024 End: 59-21-1330Dybhvcpgc identifierMark J Mendeszoon Work Phone: POS[facility]: 02-10-2024 End: 48-07-0086Vzodfivst identifierMark J Mendeszoon Work Phone: [facility]art: 02-07-2024 End: 56-33-0773Eblsanaxk identifierMark J Mendeszoon Work Phone: [facility]: 02-07-2024 End: 26-21-9448Nnxprp outpatient new 45 minutesMark J Mendsherrizoon Work Phone: [facility]: 01-30-2024 End: 07-05-6667Vciavvbtr identifierMark J Mendsherrizoon Work Phone: POS[facility] Centerart: 10-14-2023 End: 29-24-9879Papksdhxab hospital visit by [facility] Cat [facility] CT ScanComment on above:Arthrodesis status; Left ankle pain, unspecified chronicity; Osteoarthritis of left ankle or footStart: 09-13-2023 End: 59-05-1094Blehyaswst hospital [facility] by physicianNew[facility] Xr [address] RadiologyComment on above:Left ankle pain, unspecified chronicity Start: 09-05-2023 End: 19-53-0147Pjckqikivf hospital visit by Nisha Lemos MD Work Phone: mthz LaboratoryStart: 08-81-0405Qxvnmowmug Orders Alejandra TOUSSAINTThe [facility] of [facility] Physician Group, NeuroscienceComment on above: Herniated nucleus pulposus, lumbar (Primary Dx)Start: 07-26-2023 End: 56-09-4595Gxanryj encounter procedureDO Hunter Richards Work Phone: [facility] Work Phone: Start: 07-26-2023 End: 62-22-3184fuhgvaecoaZlkkib A [facility] Work Phone: Start: 16-04-8542Gbunhve encounter procedureDO Hunter Susie Work Phone: [facility] Start: 06-27-2023 End: 37-51-9292Ncwlhevspz hospital visit by Nisha Lemos MD Work Phone: [facility] RadiologyStart: 08-29-2022 End: 34-36-4245Ftujkerxwx hospital visit by Nisha Lemos MD Work Phone: JEUF LaboratoryStart: 06-20-2022 End: 61-97-3807Dthtissfdn hospital visit by Elva Holman [address] [place] [address] RadiologyComment on above:PainStart: 03-09-2022 End: 25-53-0890snofrdqitzUKYRXXR M HOYFacility:[facility] Southtart: 03-09-2022 End: 94-70-4682Yswpqtb encounter procedureSharona Hoffman DPM Work Phone: OrthopaedicsComment on above:Chronic pain of both ankles (Primary Dx); Altered gait; Bilateral congenital genu valgum; Osteochondral lesion of talar dome; Peroneal tendinitis of right lower extremity; Sinus tarsi syndrome of right ankle; Gastrocnemius equinus, unspecified lateralityStart: 03-09-2022 End: 78-27-4249Fisidtbyph hospital visit by Jp Beltran Work Phone: RadiologyStart: 03-07-2022 End: 69-35-3398Xsoydpzijd hospital visit by Nmyani Mejia Dr [address] RadiologyComment on above:Right wrist painStart: 02-19-2022 End: 36-16-4001Xsxbrzevqd hospital visit by Nisha Lemos MD Work Phone: mthz LaboratoryStart: 02-07-2022 End: 73-52-0333awwygricdvTBVDFJUFQQK W HERBERTFacility:[facility] Start: 02-07-2022 End: 40-26-3869Crmlwna encounter procedureChristopher W Mando DPM Work Phone: OrthopaedicsComment on above:OCD (osteochondritis dissecans) of ankle (Primary Dx); Chronic pain of right ankleStart: 01-18-2022 End: 74-11-7615msijbnwedkVQ LOUISE HOY .Facility:G1Gyyfh: 01-12-2022 End: 82-00-3644yisbtpcooqBL LOUISE HOY .Facility:Y4Ahufi: 01-02-2022 End: 56-72-7001Bznexxmqpm hospital visit by Nisha Lemos MD Work Phone: mthz LaboratoryStart: 11-21-2021 End: 75-47-7209nabsmyjgqzDZ LOUISE HOY .Facility:B3Yufvi: 11-10-2021 End: 15-68-3403darjkqnaeiVD LOUISE HOY .Facility:H0Qyxlp: 11-02-2021 End: 86-01-0980pibfssmhugUT LOUISE HOY .Facility:M5Inzin: 10-27-2021 End: 26-51-9632aqfnousetaBT LOUISE HOY .Facility:B6Mvixx: 10-07-2021 End: 59-73-7628Efgpvtbft department patient visitChuy Jacobson MD Work Phone: [facility] EDComment on above:Elevated lactic acid level (Primary Dx); Leukocytosis, unspecified type; Abscess; History of miscarriageStart: 07-20-2021 End: 14-74-5280Tenipubriq hospital visit by [facility] Ultrasound [facility] UltrasoundComment on above:Urinary tract infection without hematuria, site unspecified; Retention of urine, unspecifiedStart: 07-15-2021 End: 94-96-8746Fekvhcgexc hospital visit by Nisha Lemos MD Work Phone: ETFY LaboratoryStart: 07-12-2021 End: 64-90-0162Ilrsmcvddn hospital visit by Nisha Lemos MD Work Phone: MNMW LaboratoryStart: 90-22-6972Mtgqvccxtx Orders [facility] Physician Group, NeuroscienceComment on above:Low back pain, unspecified back pain laterality, unspecified chronicity, unspecified whether sciatica present (Primary Dx)Start: 01-19-2021 End: 41-09-0735Ngoyeuiaou hospital visit by Nisha Lemos MD Work Phone: VOSM Respiratory TherapyStart: 10-03-2020 End: 55-77-4936Adlvgptwsv hospital visit by Nisha Lemos MD Work Phone: MNDJ LaboratoryStart: 10-01-2020 End: 17-71-5973Xktxeuhbeh hospital visit by Nisha Lemos MD Work Phone: MFXH LaboratoryStart: 08-26-2020 End: 23-67-6046Tpuxumpwgj hospital visit by [facility] Xr [address] RadiologyComment on above:Leach syndrome, left; Osteochondritis dissecans of ankle, leftStart: 20-80-9702Awqryretp department patient visitYOSI Schneider [facility] Hospitaltart: 06-13-2020 End: 93-62-3876Gzfcedhot department patient visitFaye Go Work Phone: [facility] EDComment on above:Trapezius strain, left, initial encounter (Primary Dx)Start: 12-15-2019 End: 14-33-6772Usiqvzyeeb hospital visit by [facility] Cat Scan [facility] CT ScanComment on above:ArrivedStart: 02-09-2019 End: 62-01-1104Zmajpthwrk hospital visit by [facility] Mri [facility] MRIComment on above:Sprain of tibiofibular ligament of left ankle, sequelaStart: 01-26-2019 End: 62-79-4666Vgxaitnvl department patient visitDoNewark Hospital EDComment on above:Acute left ankle pain (Primary Dx) Procedures DateProcedureProcedure DetailPerforming ClinicianStart: 02-09-2025 End: 64-93-6405Keayp control ortho pre otsMark Jourdan DPMStart: 02-09-2025 End: 12-02-5506Lszfoamzd mgmt & traing initial enctr ea 15 minsMark Jourdan DPMStart: 02-09-2025 End: 02-49-9354Cnfhdesarj examination ankle 2 viewsWestminster Jourdan DPMStart: 66-00-7818Gqyidinxak microscopic onlyLouise Lemos MD Work Phone: Start: 11-61-5441Upxrp dip stick/tablet rgnt auto w/o microscopyLouise Lemos MD Work Phone: Start: 73-81-5444Xeikvwfjtnyhn metabolic panelRyan J Spuhler [employer] DISTRIBUTOR-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 HOME HEALTH Work Phone: start: 01-28-2025 End: 07-59-2765Wrv brain brain stem w/o w/contrast Samantha Metzger MD Work Phone: Start: 79-39-7398WS EXTRA URINEAlljulia Ordoñez MD Work Phone: Start: 01-27-2025 End: 47-98-6556Cqpxk test visual color cmprsn methMichelle Ordoñez MD Work Phone: Start: 85-93-2573Shbsulb bacterial quanttative colony count urineSharona Oliveros MD Work Phone: Start: 45-56-5660Vrtmk foot complete minimum 3 views Sharona Oliveros MD Work Phone: Start: 01-27-2025 End: 77-90-7965EN TRA RADIOLOGIST OVERREADSharona Oliveros MD Work Phone: start: 91-40-2327PZUA Stalin Ordoñez MD Work Phone: Start: 01-27-2025 End: 33-85-9012Xtziqrkmnpjgv metabolic panelSal Ordoñez MD Work Phone: Start: 42-32-2060GOACSWC DRAWSal Ordoñez MD Work Phone: Start: 43-87-2735Hoi routine ecg w/least 12 lds trcg only w/o i&Shala Ordoñez MD Work Phone: Start: 01-04-2025 End: 20-25-9790Idrpola Records CopiesMark Mendsherrizoon DPMStart: 09-22-2024 Comprehensive metabolic panelLouise Lemos MD Work Phone: Start: 79-68-1106Bjmpl panelLouise Lemos MD Work Phone: Start: 09-04-2024 End: 24-01-7044Ntnihf/vac walk boot pre otsMark Mendsherrizoon DPMStart: 09-04-2024 End: 31-08-5551Ngnnsbjaiq examination ankle 2 viewsMark Magdalenazoon DPMStart: 08-10-2024 End: 52-26-4632Ozgdkkypve examination ankle 2 Sylvia Lemos MD Work Phone: Start: 55-12-6979Wyddjuhlox examination knee 1/2 views Louise Lemos MD Work Phone: Start: 73-99-9885Osnodfmzbv microscopic onlyLouise Lemos MD Work Phone: Start: 16-26-6081Vhvui dip stick/tablet rgnt auto w/o microscopyLouise Lemos MD Work Phone: Start: 05-05-2024 End: 75-44-3083Ofjcuaaaf mgmt & traing initial enctr ea 15 minsMark Mendeszoon DPMStart: 05-05-2024 End: 07-59-9263Sydapx/vac walk boot pre otsMark Mendsherrizoon DPMStart: 05-05-2024 End: 69-73-3144Xffnd ankle complete minimum 3 viewsMark Jourdan DPMStart: 04-23-2024 End: 08-27-3720Ikcmwfc Records CopiesMark Jourdan DPMStart: 04-14-2024 End: 23-84-4907Pjqvahrotax short leg cast below knee-toeMark Tommieon DPM Start: 04-14-2024 End: 98-10-8545Prog sup shrt leg fiberglassMark Jourdan DPMStart: 04-14-2024 End: 81-48-8071Suely foot complete minimum 3 viewsMark Jourdan DPMStart: 90-72-7822FSKML OXIMETRY, CONTINUOUSVinnoemi Garcia PA-C Work Phone: Start: 04-07-2024 End: 07-86-4397Domkwnphrmz ankle openMark Jourdan DPMStart: 04-07-2024 End: 95-66-5231Wniqxss implant deepMark Magdalenazoon DPMStart: 04-06-2024 Gonadotropin chorionic qualitativeLouise Lemos MD Work Phone: Start: 48-66-3795Udrqxofyao microscopic onlyLouise Lemos MD Work Phone: Start: 01-00-2452Lxsbr dip stick/tablet rgnt auto w/o microscopyLouise Lemos MD Work Phone: [phone]: 48-81-4927Ytxoefxiggwb chorionic quantitative Louise Lemos MD Work Phone: [phone]: 01-31-9783Frzrgjlhbwvd chorionic quantitative Louise Lemos MD Work Phone: [phone]: 02-88-3778Fijbkstwplkh chorionic quantitative Louise Lemos MD Work Phone: Start: 01-61-3227Duqbopokotmj chorionic quantitative Vinccarol Garica PA-C Work Phone: Start: 28-39-3717Dwm prsmptv pthgnc organism scrn w/colony estimjVincent Brigitte HOWARD-C Work Phone: Start: 89-30-3143Uwkky test visual color cmprsn methsVincent Brigitte Garcia PA-Rina Work Phone: Start: 27-50-7889Iv lower extremity w/o contrast materialMicmk HOWARD Work Phone: Start: 83-01-2634Slqtjftnox examination ankle 2 views Louise Lemos MD Work Phone: Start: hydroxy includes fractions if performedLouise Lemos MD Work Phone: Start: 40-79-8365Hdmtc dip stick/tablet reagent auto microscopyLouise Lemos MD Work Phone: Start: 57-77-2139Zdmgm wrist complete minimum 3 views Louise Lemos MD Work Phone: Start: 21-67-4853Ahrem wrist complete minimum 3 views Louise Lemos MD Work Phone: Start: 87-67-8000Yljleyuytfbka metabolic panelLouise Lemos MD Work Phone: Start: 76-96-0504Ikhni dip stick/tablet reagent auto microscopyLouise Lemos MD Work Phone: Start: 74-26-4818Ehrom dip stick/tablet reagent auto microscopyLouise Lemos MD Work Phone: Start: 14-12-4908Scvlvvcbwi exam chest single view Chuy Jacobson MD Work Phone: Start: 10-07-2021 End: 77-17-6869Luyvm of Yanelis Jacobson MD Work Phone: Start: 10-07-2021 End: 35-91-0457Lbfcyum function Neida Jacobson MD Work Phone: Start: 10-07-2021 End: 10-15-2277QOBGNBX, SEPSISChuy Jacobson MD Work Phone: Start: 05-59-3869VIBUQ METABOLIC PANEL W/ REFLEX TO MG FOR LOW Poli Jacobson MD Work Phone: Start: 15-12-2542Kedkw count complete auto&auto difrntl wbcChuy Jacobson MD Work Phone: Start: 14-76-3189Hxdhnrbiuc microscopic onlyChuy Jacobson MD Work Phone: Start: 38-05-8191Oxdhp dip stick/tablet rgnt auto w/o microscopyChuy Jaocbson MD Work Phone: Start: 01-43-7261Lq retroperitoneal real time w/image limitedSalmagdalena Wooten MD Work Phone: Start: 12-47-1852Qmsje dip stick/tablet reagent auto microscopyLouise Lemos MD Work Phone: Start: 12-68-4793Eee routine ecg w/least 12 lds w/i&r Louise Ordonez DO Work Phone: [phone]: 61-20-9928Zonklyiicrdot metabolic panelLouise Ordonez DO Work Phone: Start: 72-21-5736Ebhkemlmzqvtd metabolic panelLouise Lemos MD Work Phone: Start: 30-44-2265PMJ RATIOLouise Lemos MD Work Phone: Start: 45-76-3094Xchya panelLouise Lemos MD Work Phone: Start: 08-26-2020 End: 92-24-9280Dsraj ankle complete minimum 3 viewsThierry Braun DPM Work Phone: Start: 54-58-7046Ytuki foot complete minimum 3 views Faye Donavan Work Phone: start: 44-59-4391Ziahrz dgradj products d-dimer quantitativeMeldenise Go Work Phone: start: 34-76-3538Jxppn of troponin quantitativeFaye Go Work Phone: start: 45-41-3170Frkdh metabolic panel calcium total Faye Go Work Phone: start: 61-98-6534Dlizw count complete auto&auto difrntl wbcFaye Go Work Phone: start: 92-30-5408Zkhgbzgohg exam chest single view Faye Go Work Phone: start: 92-07-0749Swu routine ecg w/least 12 lds w/i&r Faye Go Work Phone: start: 45-00-3503Myn any jt lower extrem w/o contrast matrlDouglas M Aminta Work Phone: Plan of Treatment DateCare ActivityDetailAuthorStart: 12-10-4358Nbjxay Vaccines (1 of 2)Zoster Vaccines (1 of 2)[facility] CenterStart: 15-85-1717HBtB,Tdap and Td Vaccines (8 - Td or Tdap)DTaP,Tdap and Td Vaccines (8 - Td or Tdap)[facility]: 05-79-7205KAkL/Tdap/Td vaccine (5 - Td or Tdap)DTaP/Tdap/Td vaccine (5 - Td or Tdap)[facility]: 38-12-9251IJiC/Tdap/Td vaccine (5 - Td)DTaP/Tdap/Td vaccine (5 - Td)[facility] Work Phone: start: 63-64-6949LDfG/Tdap/Td vaccine (8 - Td or Tdap) DTaP/Tdap/Td vaccine (8 - Td or Tdap)[facility]: 10-25-2029 DTaP/Tdap/Td vaccine (8 - Td)DTaP/Tdap/Td vaccine (8 - Td)[facility] [place] Start: 17-11-0340VLxR/Tdap/Td Vaccines (8 - Td or Tdap)DTaP/Tdap/Td Vaccines (8 - Td or Tdap)[facility] CenterStart: 75-72-4006Ytter microalbumin profileDTaP,Tdap,Td Vaccine (8 - Td or Tdap)[facility]art: 35-70-9378Vonry BMI ScreeningAdult BMI ScreeningProDayton Children's Hospitaltart: 12-55-1098Ocsqyzy ScreeningTobacco ScreeningWatauga Medical Centertart: 95-23-3349Zdgqi BMI ScreeningAdult BMI ScreeningProDayton Children's Hospitaltart: 91-90-2258Fydvlhs ScreeningTobacco ScreeningWatauga Medical Centertart: 02-25-2025 End: 52-07-6250Vozxahu encounter procedureProMedica Rheumatology, A Department of ProMedicRiverside Methodist Hospitaltart: 90-23-3688FSPYV-19 Vaccine ( season)COVID-19 Vaccine ( season)[facility]Start: 70-11-3136Medpnowxw vaccinationInfluenza VaccineWatauga Medical Centertart: 43-16-4051Kkimdllbn vaccinationBon [facility] AdministrationStart: 10-27-2024 End: 02-82-4518Rxyzkym encounter ikdnxkkak85/01/2025 1:00 PM EDT Office Visit [facility] Part of [address] [place] [address] Bisi Perkins APRN - [address] [facility] [address] [place] [address] Furniture Sander: Katie joaquin- Dr MendosaSUM[facility] Part of [facility] HospitalComment on above:Furniture Sander: Katie care- Dr [facility]: 49-03-2914Fduolao referral LEFT LOWER LEG BRACE PLEASE CONTACT DR BRAUN @ [phone] WITH ANY QUESTIONS TO DISCUSS(related to Secondary osteoarthritis, left ankle and foot)[facility] [place]: 05-05-2024 Pepper Farias ANKLE-AW MFOrthoAlliance of [place] Work Phone: Start: 24-85-4757OplxbbePepper chavez ANKLE-AW MF [facility] Work Phone: Start: 04-07-2024 End: 44-12-8187Ghxujptwuih multiplane external fixation systemVirtual GEN OR Start: 04-07-2024 End: 01-20-5908Txpdiqjremj ankle openVirtual GEN ORStart: 04-07-2024 End: 29-92-5261Nmrelcmveok subtalarVirtual GEN ORStart: 04-07-2024 End: 31-55-2048Ppcfgsn implant deepVirtual GEN ORStart: 34-18-7639Givbkeg, MartinLincoln HospitalAllMemorial [facility] Work Phone: Start: 14-23-1651WlwmzelSt. Charles Medical [facility] Work Phone: Start: 10-97-1614SULNP-19 Vaccine ( season) COVID-19 Vaccine ( season)[facility]: [facility] Covid-19 Vaccine ( season)Covid-19 Vaccine ( season) [facility]: 03-55-7063Gsktfqfpx vaccinationInfluenza Vaccine (#1) [facility]: 77-48-3550Qoqqjvxgo vaccinationBON [facility] Start: 41-42-4855Tfspulddo for malignant neoplasm of cervixBON [facility]FAIR[facility]ILLStart: 96-97-9435Zfuir X-ray of right hipXR hip RT min 2V(w/wo pelvis)* [facility] Campustart: 30-89-5804Kfxeryoer vaccinationBON [facility]FAIR[facility]ILLStart: 10-47-7491Iseqqtfaf vaccinationBON SECOURS MEM[facility]IAL REGION[facility] CENTERStart: 72-99-2534Asaatkwis vaccinationFlu vaccine (#1)[facility]ENTERStart: 42-04-4266Ntoiruovr A Vaccines (1 of 2 - Risk 2-dose series) Hepatitis A Vaccines (1 of 2 - Risk 2-dose series)[facility]: 40-72-7486Pknuc microalbumin profileDTAP,TDAP,TD (1 - Tdap) [facility]: 25-97-7038HCSWNZJRAR ASSESSMENTDEPRESSION ASSESSMENT [facility]: 22-65-2080Rkdovocqk vaccinationKindred Hospital DaytonStart: 14-36-0147Abtjy BMI Follow Up PlanAdult BMI Follow Up PlanProEncompass Health Rehabilitation Hospital [facility] Health SystemStart: 20-36-2338Eqljgay ScreeningAnxiety ScreeningTogus VA Medical Centertart: 57-45-3975VJECVUOCD SCREENING (18-24)CHLAMYDIA SCREENING (18-24)[facility] Start: 83-06-8758Bfdspihegl ScreeningDepression ScreeningTogus VA Medical Centertart: 81-98-9850JI (GONORRHEA) SCREENING (18-24)GC (GONORRHEA) SCREENING (18-24) [facility]: 02-20-3730Evzyfsekq C screeningBON [facility]OURS [facility] Start: 11-48-5344AGCBMARQK C SCREENINGHEPATITIS C SCREENINGWadsworth-Rittman Hospital Start: 01-49-9848KWY SCREENINGHIV SCREENINGTogus VA Medical Centertart: 14-20-4024KWD screeningHIV ScreeningTogus VA Medical Centertart: 24-10-4495Tgppgbddj for Chlamydia trachomatisChlamydia Screening (18-24)[facility]: 76-11-3530Ightyywgr vaccinationFlu vaccine (#1)[facility]: 81-95-9140Dcyuqdzek vaccinationFlu vaccine (#1)[place] 54-09-4684Gtnjazhyl screen Chlamydia screenSaint [place], [place]Start: 26-66-1761CYQWA-19 Vaccine (1)COVID- 19 Vaccine (1)[facility] Work Phone: start: 46-27-3119Xjyesecypvpgx (ACWY) Vaccine (1 - 2- dose series)Meningococcal (ACWY) Vaccine (1 - 2-dose series)[place] Start: 25-35-4436Apxcnttyhytpl B vaccine (1 of 2 - Standard)Meningococcal B vaccine (1 of 2 - Standard)[facility] HospitalStart: 2018 Meningococcal B Vaccine: Consider Based On Risk (1 of 2 - Patient Seeks Protection)Meningococcal B Vaccine: Consider Based On Risk (1 of 2 - Patient Seeks Protection)[facility]: 19-40-1552Yqevjtldo for Chlamydia trachomatisKindred Hospital DaytonStramsay: 00-97-2315DLW screenHIV screenSaint [place], [place] Start: 04-92-9113DNU screeningHIV screenNorwalk Memorial Hospital: 17-97-4547ULB Vaccine (1 - 3-dose series)HPV Vaccine (1 - 3-dose series)[facility]: 60-12-2338BDV vaccine (1 - Female 3-dose series)HPV vaccine (1 - Female 3-dose series)[facility]: 53-13-8408XRY Vaccines (1 - 3-dose series)HPV Vaccines (1 - 3-dose series)[facility] CenterStramsay: 2016 PEDS TO ADULT TRANSITION ANNUAL ASSESSMENTPEDS TO ADULT TRANSITION ANNUAL ASSESSMENTTogus VA Medical Centertart: 89-24-0714Agwdvdedi Vaccine (1 of 2 - 13+ 2- dose series)Varicella Vaccine (1 of 2 - 13+ 2-dose series)[place] Start: 09-57-8987YDRUQ-19 Vaccine (1)COVID-19 Vaccine (1)[facility] Work Phone: start: 74-94-0481Tzfdnwaxql ScreenDepression Screen [facility]: 58-39-2679Louqnmxgaj ScreeningDepression ScreeningWatauga Medical Centertart: 54-57-7384EXUS TO ADULT TRANSITION INITIAL DISCUSSIONPEDS TO ADULT TRANSITION INITIAL DISCUSSIONTogus VA Medical Centertart: 71-47-9157RTX vaccine (1 - 2-dose series)HPV vaccine (1 - 2-dose series)[facility]: 2012 MENINGOCOCCAL B: Consider based on risk (1 of 2 - Risk Bexsero 2-dose series) MENINGOCOCCAL B: Consider based on risk (1 of 2 - Risk Bexsero 2-dose series) [facility]: 25-26-5526PVtL/Tdap/Td vaccine (1 - Tdap)DTaP/Tdap/Td vaccine (1 - Tdap)[facility]: 46-91-0537Nkvrbtimrebj Vaccine: Pediatrics (0 to 5 Years) and At-Risk Patients (6 to 64 Years) (1 of 2 - PCV) Pneumococcal Vaccine: Pediatrics (0 to 5 Years) and At-Risk Patients (6 to 64 Years) (1 of 2 - PCV)[facility]: 42-08-2124ZZQCO-19 Vaccine (1)COVID-19 Vaccine (1)[facility]: 09-60-7845Pczzdom Screening (#1)Hearing Screening (#1)[facility]: 07-30-2003 Hepatitis A vaccine (1 of 2 - 2-dose series)Hepatitis A vaccine (1 of 2 - 2-dose series)[facility]: 66-97-4266Idifras,Mumps,Rubella (MMR) vaccine (1 of 2 - Standard series)Measles,Mumps,Rubella (MMR) vaccine (1 of 2 - Standard series)[facility]: 11-50-2717JBVYC-19 Vaccine (#1)COVID-19 Vaccine (#1)[facility]: 06-30-0770Lsjak vaccine 0-18 (1 of 3 - 4-dose series)Polio vaccine 0-18 (1 of 3 - 4-dose series)[place] Start: 46-75-9355WYONHIXRY B (1 of 3 - 3-dose series)HEPATITIS B (1 of 3 - 3- dose series)[facility]: 85-83-3283Bpdjujkdi B Vaccine (1 of 3 - 3- dose primary series)Hepatitis B Vaccine (1 of 3 - 3-dose primary series)[facility]: 18-40-2444Gswxsxuyx C screeningHepatitis C screenNorwalk Memorial Hospital: 04-87-8505Mucyn panelLipid PanelSamaritan North Health Center Start: 51-71-7760Usksve Adult PhysicalYearly Adult PhysicalSamaritan North Health Center End: 73-84-1300Npxprzpl identified in Urine by CultureProMedica Work Phone: Comment on above:Once for 1 Occurrences starting 01/28/2025 until 5Bacteria identified in Urine by CultureUrine Culture Urine, Clean Catch Midstream Microbiology STAT 01/27/2025 6:22 PM EDTProMedica Work Phone: End: 13-20-1988Mmdqpebfycegjvenaz ( test) [Presence] in UrinehCG, Urine, Qualitative Lab STAT STAT (Lab) for 1 Occurrences starting 04/07/2024 until 04/07/2024[facility] Service Area Work Phone: Comment on above:STAT (Lab) for 1 Occurrences starting 04/07/2024 until 04/07/2024 End: 58-81-5415Pvxreyn, Anaerobic and AerobicBON SECTeamLease Services Work Phone: comtltb on above:One Time for 1 Occurrences starting 10/07/2021 until 10/07/2021 End: 91-24-6343Sfjzcxn, Blood 1[facility] Work Phone: comabml on above:One Time for 1 Occurrences starting 10/07/2021 until 10/07/2021 End: 86-68-4620Qhkxdfc, UrineMercy Health Work Phone: Comuqto on above:Once for 1 Occurrences starting 07/15/2021 until 07/15/2021 End: 61-14-3335Ytotxao, UrineB[facility]OURS [facility] Work Phone: Comment on above:Once for 1 Occurrences starting 01/02/2022 until 01/02/2022 End: 75-11-5178Tmztqca, UrineB[facility]OURS [facility] Work Phone: Comment on above:Once for 1 Occurrences starting 02/19/2022 until 02/19/2022 End: 18-10-6125Irfobgj, UrineB[facility]OURS [facility] Work Phone: Comtaul on above:Once for 1 Occurrences starting 08/29/2022 until 08/29/2022 End: 60-22-1976Emqomrk, UrineBon [facility] Work Phone: Comkxlf on above:Once for 1 Occurrences starting 04/06/2024 until 04/06/2024 End: 33-01-3332Wbpgxeq, UrineBon [employer] Work Phone: Comment on above:Once for 1 Occurrences starting 07/20/2024 until 07/20/2024 End: 53-53-2441Haqqwkn, UrineBon [employer] Work Phone: Comment on above:Once for 1 Occurrences starting 02/04/2025 until 02/04/2025EKG 12 LeadEKG 12 Lead ECG STAT 06/13/2020 1:57 PM [employer] Work Phone: End: 93-29-6235Sbdqsakxat A1c/Hemoglobin.total in BloodHemoglobin A1C Lab Routine Once for 1 Occurrences starting 10/01/2020 until 10/01/2020[employer] Work Phone: comment on above:Once for 1 Occurrences starting 10/01/2020 until 10/01/2020Hemoglobin A1c/Hemoglobin.total in BloodHemoglobin A1C Lab Routine 10/01/2020 10:55 AM [employer] Work Phone: End: 81-93-5912TH Unspecified body region Less than 1 hour Views during surgery [facility] Work Phone: Comment on above:Once for 1 Occurrences starting 04/07/2024 until 04/07/2024Surgical pathology [facility] Service Area Work Phone: Comment on above:Release Upon Ordering for 1 Occurrences starting 04/07/2024XR Hip - right 2 ViewsK[facility] Payers DatePayer CategoryPayerPolicy [id number] Care, Other (non HMO)AETNA SIGNATURE ALLIED BENEFIT Member Subscriber Plan / Payer (Effective 2025- Present) Name: Blanka Farias Relation to Subscriber: Child Name: MILLER FARIAS Date of : 1969 Address: [address] [place] [address] Payer ID: 1 (NAIC) Type: Not on file Address: [address] [place]OME[place] [id number] 2025Medicaid [facility] [id number] [id number] Health [id number] 2024Self-pay2023Medicaid (Managed Care)[employer] [id number] [id number] 1.2.840.328619.1.13.239.2.7.3.931057.55717-93-8811Tjydcwv Health Insurance 1.2.840.436470.1.13.159.2.7.3.952629.315 2021Medicaid 1.2.840.624422.1.1[id number] 1.2.840.434137.1.13.239.2.7.3.672968.61099-65-1206BirpwdbPBECQGE MUTUAL MEDICAL MUTUAL IAIN - EXCHANGE xxxxxxxxxxxx 2014-Present [phone] [address] [place] [address]cwbaucwodgio 1.2.840.346400.1.13.239.2.7.3.378765.315 22-54-0478ZkrlsriCOZPBUDYI ADVANTAGE PARAMOUNT ADVANTAGE xxxxxxxxxxx 2014- Present [phone] [address] [place], [place] [address]tnhlzupneaq 1.2.840.832302.1.13.239.2.7.3.060357.95371-42-9485CoxlzyiFEVXARAWQ ADVANTAGE PARAMOUNT ADVANTAGE [id number] 2014-Present [phone] [address] [place], [place] [id number] 1.2.840.283896.1.13.239.2.7.3.918410.57334-87-2295Pbpyesm [id number] 2..1.011953.3.579.2.14105-58-8805Gaygxky8610957 2.0.1.116449.3.579.2.55977-70-5666Ayoabzf4609170 2.0.1.722045.3.579.2.56359-33-0111Offgkxq2579654 2.0.1.471626.3.579.2.33653-97-6136Wvuwxux5277793 2.0.1.577611.3.579.2.96132-06-5500Mlqejow1398064 2.840.1.845416.3.579.2.06295-67-1275Ppdoasi2637091 2.0.1.166524.3.579.2.446041-39-5880Qbqawhc4563767 2.16840.1.142353.3.579.2.821567-28-1175Djbjnol158252663 2.16.840.1.649661.3.579.2.25422-43-0114Kfhcmwq90565121 2.16840.1.564120.3.579.2.728743-48-3288Bbgipwz87447931 2.16840.1.660978.3.579.2.311834-99-5485Egzamrd27037669 2.840.1.496813.3.579.2.942345-16-7925Qoklzfa33846835 2.840.1.226160.3.579.2.996231-22-8042Gqbmeuk521402182 2.840.1.229133.3.579.2.786996-07-9558Jdhatmm985515733 2.840.1.963621.3.579.2.313999-27-4601Arnzpse412473684 2.840.1.758947.3.579.2.481668-24-3738Kzrsbzw668405341 2.840.1.750763.3.579.2.403410-20-2335Qbjwmif256021707 2.840.1.421711.3.579.2.462687-79-9623Faragkl39088726 2.840.1.792541.3.579.2.87056-00-5149Wzbuifn71649964 2.16840.1.836800.3.579.2.63464-24-6844Qvrpvfj09384561 2.840.1.275053.3.579.2.33378-19-7970Qgbcfft33049695 2.16840.1.588168.3.579.2.17193-12-8454Ynoywhr98774177 2.16840.1.576357.3.579.2.02557-59-6144Yrzlyro95711499 2.16840.1.481536.3.579.2.23604-77-7528Kykckkm09858728 2.16840.1.802177.3.579.2.79651-07-0065Cyeevog56298748 2.840.1.743706.3.579.2.10205-58-3936Gtntuff25349489 2.840.1.409042.3.579.2.89714-03-0665Xrfrhwu38766573 2.840.1.686537.3.579.2.20015-30-8169Ovdqpze69190127 2.840.1.679344.3.579.2.67580-52-4157Guuxzsy1207221 2.840.1.990579.3.579.2.033095-87-9009Ybgnuzl6481675 2.840.1.031524.3.579.2.730816-04-3666Yilfqra6683792 2.840.1.683647.3.579.2.518156-41-1775Yytloga9572564 2.840.1.707952.3.579.2.281123-59-3748Bqucbhs7521977 2.840.1.507029.3.579.2.420329-07-2203Bxyoxke6065305 2.840.1.753326.3.579.2.815676-06-6433Tnrvalp2398541 2.840.1.090146.3.579.2.723196-29-5513Tgfmcpp6611874 2.840.1.560881.3.579.2.105876-05-2964Wkhypzk9254348 2.16.840.1.356156.3.579.2.562422-61-9999Hsztusk0856860 2.16.840.1.890271.3.579.2.932856-57-8720Yodjebg7424099 2.16.840.1.112703.3.579.2.340303-01-7107Tzxpuzn5558677 2.16.840.1.810848.3.579.2.156551-03-9864Bpbsrlm9196884 2.16840.1.242535.3.579.2.419628-77-5522Lpibolj2368856 2.16840.1.205629.3.579.2.202882-57-2222Mlicfey3573879 2.840.1.577060.3.579.2.451593-24-1502Oybcwxz0825501 2.16840.1.411236.3.579.2.181941-13-8697Aztcuwk7318490 2.840.1.403689.3.579.2.156226-94-5178Iolnfya7462926 2.16840.1.112401.3.579.2.497857-85-6469Mslnxjs4361959 2.16840.1.479964.3.579.2.609680-10-2905Amlzbaa8518728 2.16840.1.888059.3.579.2.509743-35-8602Awucsdj2879367 2.16840.1.182335.3.579.2.327112-95-0979Xhuhuzb0469942 2.16840.1.609634.3.579.2.038181-84-6551Fuvziec1154255 2.16840.1.802006.3.579.2.475141-68-1770Wzakkjy3206947 2.16.840.1.660770.3.579.2.939704-41-0744Qyjmpli2734032 2.16.840.1.590867.3.579.2.571578-71-3403Hprouzl7679507 2.16.840.1.222245.3.579.2.737577-66-9187Hvzemxw1325681 2.16840.1.218957.3.579.2.387738-68-8101Qxiwfks7676859 2.840.1.124287.3.579.2.131967-35-5002Qqmlnry3380038 2.840.1.398331.3.579.2.026263-93-6676Nszjzxx9869696 2.840.1.471430.3.579.2.836571-98-7342Utfomrm4676578 2.840.1.061543.3.579.2.604723-27-4357Labkzpw7929249 2.840.1.844373.3.579.2.908524-41-3358Eneugva644826088 2.840.1.951349.3.579.2.080695-93-4022Wcllwbf397832325 2.840.1.823100.3.579.2.164320-34-2554Mhiddhq678794458 2.840.1.114281.3.579.2.841987-63-2907Jwvamak847465089 2.840.1.670701.3.579.2.518377-36-2308Wfcdwns325820342 2.840.1.363786.3.579.2.633054-23-2640Sulcose133426079 2.840.1.551921.3.579.2.402928-37-7000Ytovooa375543879 2.16.840.1.483809.3.579.2.543141-89-1338Ggcmvya36976135553 1.2.840.342455.1.13.239.2.7.3.728282.54285-85-3149LbxfhkmZB2252545 1.2.840.393686.1.13.239.2.7.3.499400.865Zapxwtl68117001 2.16.840.1.887939.3.579.2.531 Social History DateTypeDetailFacilityStart: 01-26-2019 End: 90-28-2553Ibqimzn smoking status NHISNever smokerHolzer Hospital: 01-26-2019 End: 35-84-4585Mifgkfx intakeNoWatauga Medical Centertart: 18-50-9872Vuq Assigned At BirthNot on fileHolzer Hospital: 01-26-2019 End: 34-40-0245Tzuflgj use and exposureNever usedHolzer Hospital: 01-26-2019 End: 31-25-2156Gqxhqqw intakeCurrent non-drinker of alcohol (finding)[facility]: 09-27-2021 End: 33-11-5759Qfxllgbu to SARS-CoV-2 (event)Not sureHolzer Hospital: 02-13-2024 End: 12-19-0209Jjvyiyn smoking status NHISTobacco smoking consumption unknown [place] MexicoHealthHistory of tobacco usePassive smokerBON BANNER [facility]OU[facility] Work Phone: start: 06-08-2020 End: 30-07-8767Zrdnigp of Social functionProMagruder Hospital SystemStart: 18-95-8959Rti Assigned At BirthMercy Health West Hospitaltart: 79-60-1907Qyvwuh OrientationBisexualOrthoAlliance of [place] MexicoStart: 02-07-2024 Alcohol intakeAlcohol Use DetailsOrthoAlliance of [place] MexicoStart: 55-77-2086Nqrpmwj use and exposureNon-Smoking Tobacco Use DetailsOrthoAlliance of [place] MexicoStart: 53-39-8600Ernnao OrientationChoose not to discloseOrthoAlliance of [place] MexicoStart: 44-66-7338Eahgpn OrientationStraight or heterosexualOrthoAlliance of [place] MexicoStart: 60-02-4226Ccptadcqh beverage intakeEx-drinker (finding)[facility] Work Phone: Start: 37-50-5291Nubkevo Comment2 x year pt deneis any alcohol 03/18/24UnDay[facility]opathic [facility] Work Phone: Start: 21-22-6228Kloqhhp Comment2 x year pt denies any alcohol 03/18/24UnDayton Osteopathic Hospital Work Phone: Start: 06-08-2012 End: 38-48-5544PvgCrxgso (finding)[facility]Start: 01-25-2025 End: 39-76-8551Eaunvscpo beverage intakeLifetime non-drinker (finding)[facility] SystemChildcareUnknoSouthern Virginia Regional Medical CenterNEGATED: Highlighted row Start: 96-00-8527Bbaxldx smoking status NHISNever smokerOrthoAlliance of [place] NEGATED: Highlighted rowStart: 02-10-2024 End: 27-70-0780Wsvncfz smoking status NHISUnknown if ever smokedOrthoAlliance of [place] Medical Equipment Procedure CodeEquipment CodeEquipment Original TextEquipment IdentifierDates Graft, Clarix Cord 1k, 6.0 X 3.0cm Case [id number]: 01-29-2020 Comment on above:Description: Converted from Care Acute. Please see archived information for full log information.Screw Compr Ft 4.0 Std 50mm Lgth Case [id number]: 79-53-5963Wmvmwmd on above:Description: Converted from Care Acute. Please see archived information for full log information.Mops Oc Talus Left Case [id number]: 62-47-2545Jcurkhu on above:Description: Converted from Care Acute. Please see archived information for full log information.Screw Compr Ft 2.5 Micro .28mm Lgth Case [id number]: 31-36-2724Yphtbsn on above:Description: Converted from Care Acute. Please see archived information for full log information.Guidewire, Smooth X2, 0.86mm Case [id number]: 12-62-0737Wlaqdyv on above:Description: Converted from Care Acute. Please see archived information for full log information.Screw, Quickfix, 4 X 50mm, Morgan, Short Thread, Ti Case [id number]: 56-77-2008Oisefuv on above:Description: Converted from Care Acute. Please see archived information for full log information.2.50mm Screw Case [id number]: 32-83-6604Ybwfnwz on above:Description: Converted from Care Acute. Please see archived information for full log information.Screw, Compression Ft, 2.5 Micro, 20mm Case [id number]: 99-40-3168Bbfwvpm on above:Description: Converted from Care Acute. Please see archived information for full log information.Allograft, Jorge 10cc - [id number]: 05-58-6260Cggdanvlz, Dermal Matrix, Meshed, 4 X 8cm, Hydrated - [id number] - [id number]_zejKzlst: 31-92-5086Dwsupd, Neospan, Compression, 94o03o86, W/Instruments, Sterile - [id number]_ijfRipks: 34-89-9741Thpqtk, Neospan, Compression, 55r86h59, W/Instruments, Sterile - [id number]_mfrDpcsq: 24-85-5524Sthuhgs Compression Implant System [id number]_impStart: 04-07-2024 Clinical Notes 10-07-2021 to 02-25-2025 Note Date & DleyFmunOrftnkar11-67-9512 History of Present illness Narrative* Erinn Johnson MD MPH - 02/25/2025 11:15 AM EDT Images from the original note were not included. ADULT RHEUMATOLOGY CLINIC NOTE [address] [address] Patient Name: Blanka Farias Subjective Reason for Rheumatology Consultation: concern for fibromyalgia History of Present Illness: Blanka Farias is a 24 y.o. female who presents as a referral from her Neurosurgery provider forconcern of possible fibromyalgia. The patient is accompanied by her mother who provides much of theinformation regarding the patient's complex medical history. The patient's mother provided a handout that details the patient's pediatric history and what the patient's mother believes led to many ofher ongoing health issues. I have copied this document below for reference. The patient's mother reinaldo nurse. We do not have access to her pediatric records at this time. The patient has been seeing several other specialists over the years including pain management, podiatry, orthopedics, neurology, and neurosurgery. She has undergoing bilateral knee arthroscopies as well as multiple left ankle surgeries with eventual fusion. She is presently dealing with an increased severity of cervical and thoracic back discomfort. She localizes her discomfort to the spine itself and also notes some muscle pain in the right neck and upper back. She has some difficulty and pain with turning her head to the right. She notes that the symptoms of back pain are constant. At times the pain symptoms make it difficult for her to fall asleep or stay asleep. The patient denies diffuse pain in the body and does not typically have upper and lower extremity joint or soft tissue pain symptoms. She does have some fatigue as her mother notes that she sleeps a lot. She also may have occasional moments of brain fog but this doesn't seem to be a persistent issue. Her mother also notes that the patient has a tendency to be constipated and she takes regular doses of magnesium to avoid this. The patient does endorse chronic headaches that have seemed to get worse recently. 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 She did have some fairly mild to moderate disc bulges in the thoracic and lumbar spine. And she underwent a brain MRI which redemonstrated an empty sella which can be physiologic but can also be seen with idiopathic intracranial hypertension. The patient was then referred to get additional evaluation with a Neuro-Ophthalmology. She also has plans to follow up with a new paintings restorer at [facility] as well as a neurosurgeon and neurologist at [facility] in the coming weeks. Family Hx: -noncontributory Subjective Review of Systems: CONSTITUTIONAL: Admits: [] Weight Loss [] Fever [] Frequent Night Sweats OPHTHALMOLOGIC: Admits: [] Glaucoma [] History or Current Inflammatory Eye Disease [] Cataracts ENT: Admits: [] Oral/Nasal Ulcers [] epistaxis [] Recurrent Sinusitis [] Dry Eyes [] Dry mouth CARDIOVASCULAR: Admits: [] Chest pain [] Pericarditis/Pleuritis [] Palpitations [] Edema RESPIRATORY: Admits: [] hemoptysis [] Dyspnea on Exertion [] Cough [] Wheezing GASTROINTESTINAL: Admits: [] Bloody Stool [] Diarrhea [] Vomitting GENITOURINARY: Admits: [] Blood in urine [] Genital Ulcers [] Burning/pain with urination MUSCULOSKELETAL: Admits: [x] Muscle Pain [x] Joint Pain INTEGUMENTARY: Admits: [] Skin changes [] Sclerodactyly [] Raynauds [] Photosensitivity [] Alopecia NEUROLOGIC: Admits: [] Recurrent Headaches [] Limb Weakness [] Numbness/Tingling PSYCHIATRIC: Admits: [] Insomnia [] Depression [] Anxiety ENDOCRINE: Admits: [] Thyroid abnormalities HEMATOLOGY/LYMPH: Admits: [] Notable Swollen Lymph Nodes [] History of Cytopenias [] Bruising tendency [] History of DVT/PE All non checked boxes, patient denies. All other 10 point ROS reviewed and negative. Current Outpatient Medications Medication Sig Dispense Refill cholecalciferol, vitamin D3, 2,000 units capsule TAKE 1 CAPSULE BY MOUTH EVERY DAY FOR 90 DAYS hydrOXYzine (ATARAX) 25 mg tablet Take 1 tablet (25 mg total) by mouth. ibuprofen (MOTRIN) 800 mg tablet Take 1 tablet (800 mg total) by mouth every 6 (six) hours. oxyCODONE (OxyCONTIN) 10 mg 12 hr tablet Take 1 tablet (10 mg total) by mouth every 12 (twelve) hours. Max Daily Amount: 20 mg oxyCODONE-acetaminophen (PERCOCET) 5-325 mg per tablet TAKE 1 TABLET NEEDED BY MOUTH EVERY 6 HRSM51.36 VIENVA 0.1-20 mg-mcg per tablet TAKE 1 TABLET BY MOUTH EVERY DAY FOR 28 DAYS No current facility-administered medications for this visit. reviewed. 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 Past Surgical History: Procedure Laterality Date CHOLECYSTECTOMY FOOT SURGERY KNEE SURGERY TONSILLECTOMY TUBAL LIGATION reviewed. Social History Tobacco Use Smoking status: Never Smokeless tobacco: Never Substance Use Topics Alcohol use: Never Drug use: Yes Types: Marijuana reviewed. Past Medical History: Diagnosis Date Chronic kidney disease Depression Headache Low back pain Lumbar disc disorder Visual impairment reviewed. Social History Social History Narrative Not on file reviewed Family History Problem Relation Age of Onset Diabetes Paternal Grandfather Heart disease Paternal Grandfather Parkinsonism Paternal Grandfather reviewed. Allergies Allergen Reactions [id number]-[id number]-[id number] Other (See Comments) red eyes Topiramate Swelling Eye drops; eyes swollen and red reviewed. The following portions of the patient's history were reviewed and updated as appropriate: allergies, current medications, past family history, past medical history, past social history, past surgicalhistory and problem list. The following portions of the patient's history were reviewed and updated as appropriate: allergies, current medications, past family history, past medical history, past social history, past surgicalhistory and problem list. Objective Objective Physical Exam: BP 122/74 Pulse 71 Resp 18 Ht 172.7 cm (5' 8 ) Wt 108.4 kg (239 lb) BMI 36.34 kg/m : reviewed GEN: AOx3, NAD EYES: Clear lenses, sclerae white, conjunctiva pink. ENT: External ears normal. Nares and nasal mucosa normal. Normal oral aperture. No oropharyngeal lesions. NECK: supple, no LAD. LUNGS: CTAB. HEART: Regular rhythm, normal S1/S2, no M/R/G. ABD: Soft, non-distended, non-tender. VASC: Ext warm, peripheral pulses 2+, no edema. MSK: Evaluated the large and small joints of the upper and lower extremities including the bilateral shoulders, elbows, wrists, hands, knees, ankles, and feet. Unless otherwise stated below, joints were without deformity, impairment in ROM, warmth, or tenderness to palpation. Pertinent MSK Findings: No evidence of synovitis in the small joints of the bilateral hands or wrists. No evidence of significant bilateral knee effusions at this time. The patient does have some soft tissue swelling in thebilateral lower distal extremities with the left ankle and lower leg being worse in the right. The patient is wearing an Aircast brace along her left ankle. She also notes discomfort to palpation of the cervical spine in the upper part of the thoracic spine. She has less significant paraspinal muscle tenderness except for the area of the right neck and sternocleidomastoid muscle. She does not endorse diffuse soft tissue discomfort with palpation of theupper and lower extremities. INTEGUMENT: Skin, nails, and hair normal unless otherwise stated below. NEURO: Alert. Sensation intact to soft touch. Normal muscle bulk and strength in trunk and limbs. COLLINS-28 (If Applicable) There is currently no information documented on the homunculus. Go to the Rheumatology activity andcomplete the homunculus joint exam. COLLINS-28 (CRP): -- COLLINS-28 (ESR): -- Tender (COLLINS-28): -- Swollen (COLLINS-28): -- Labs and Imaging: reviewed and discussed with the patient during the visit. General Labs: Lab Results Component Value Date WBC 10.6 01/28/2025 HGB 12.6 01/28/2025 HCT 37.1 01/28/2025 MCV 81 01/28/2025 PLT 317 01/28/2025 Lab Results Component Value Date CREATININE 0.70 01/28/2025 BUN 9 01/28/2025 K 4.2 01/28/2025 CL 109 01/28/2025 CO2 23 01/28/2025 Lab Results Component Value Date ALT 14 01/28/2025 AST 21 01/28/2025 ALKPHOS 58 01/28/2025 Inflammatory Markers No results found for: CRP RA-related Auto-Ab's No results found for: RF MARK & related Labs No results found for: MARK , ANTIRNP , ANTISMRNP , C3 , C4 Scleroderma-related Auto-Ab's No results found for: SCL70 , JO1 Myositis-related Auto-Ab's No results found for: JO1 APLS-related Auto-Ab's No results found for: DRVVT Vasculitis-related Auto-Ab's No results found for: MYELOPEROXID Imaging / Special Studies Reviewed in EMR. Assessment / Recommendations 1. Neck pain 2. Chronic midline thoracic back pain 3. Polyarthritis 4. Other chronic pain 5. Empty sella turcica 6. Chronic nonintractable headache, unspecified headache type Overall Impression: Blanka Farias is a 24 y.o. female patient with a chronic history of neck pain (right worse thanleft), cervical spine and thoracic spine discomfort, and headaches with recent findings on brain imaging that was concerning for possible IIH. The patient was referred to our office for concern of possible fibromyalgia. However, at this time, her pain is not diffuse and she has no significant hyperesthesia throughout the body. Her pain seems to be localized to very specific areas of the neck, cervical, and thoracic spine. As such, her clinical symptoms are not consistent with fibromyalgia at this time. I do think she should continue to pursue workup for IIH and follow through with visits to Ophthalmology for evaluation of papilledema. And it seems they are also pursuing additional opinions with PM&R / Pain Management at [facility] as well. Some of her symptoms in the neck and upper back seem to be more related to muscle tension pain, and she may benefit from trigger point injections which can be discussed with the PM&R specialist that she is going to see. Recommendations: Labs, Imaging, Special Studies: No orders of the defined types were placed in this encounter. Treatment Plan: -No specific rheumatological medications at this time Consults/Referrals: -No new referrals at this time Health Maintenance: -The patient should continue to follow with their PCP for age and risk factor appropriate cancer screening and immunizations. Follow-up: -PRN Total time spent was 45 minutes: Preparing to see the patient (e.g., review of tests) Obtaining and/or reviewing separately obtained history Performing a medically appropriate examination and/or evaluation Documenting clinical information in the electronic or other health record Independently interpreting results (not separately reported) and communicating results to the patient/family/caregiver Erinn Johnson MD, MPH [facility] [address] [place] [address] This note was created with the assistance of a speech recognition program. While intending to generate a timely document that accurately reflects the content of the visit, no guarantee can be provided that every grammatical or spelling mistake has been or will be identified or corrected. Thank you for your understanding. [facility]* Type Assessment Date assessment Causalgia of left lower extremit y assessment [id number] osteoarthritis, left ankle and [id number] [facility] Work Phone: 1(826) 679-626810-09-2025 NoteChief Complaint: Neck, mid and low back pain HPI WWhen did this problem begin: Long time Timing/frequency of occurrence: Constant Pain description: dull ache Pain severity: 10 Radicular pain: No Numbness/tingling: Yes Weakness: Yes What improves symptoms: Rest What makes symptoms worse: Bending, lying down, sitting, standing, twisting Gait disturbance: No Fine hand dexterity problem: No ROS Constitutional: Fatigue: No Weight [...] Resource Strain: Not on file Food Insecurity: No Food Insecurity (01/27/2025) [facility] Hunger Screening Within the past 12 months we worried whether our food would run out before we got money to buy more.: Never True Within the past 12 months the food we bought just didn't last and we didn't have money to get more.: Never True Transportation Needs: Not on file Physical Activity: Not on file Stress: Not on file Social Connections: Not on file Intimate Partner Violence: Unknown (08/13/2023) [place] Safety & Environment Fear of Current or Ex-Partner: Not on file Emotionally Abused: Not on file Physically Abused: Not on file Sexually Abused: Not on file Physically or Sexually Abused: Not on file Housing Stability: Not on file Family History[6] Physical Exam Visit Vitals BP 148/90 (BP Location: Left arm) Pulse 69 Resp 21 Musculoskeletal Ortho spine musculoskeletal examination: Alignment spine: normal Tenderness: lumbar paraspinal Range of motion Cervical spine: normal Range of motion lumbar spine: limited Spurling Test: Negative Neurological Biceps strength: 5 Wrist extension: 5 Triceps strength: 5 Finger flexor: 5 Finger abduction strength: 5 Flexion at the hip strength: 5 Quadriceps strength: 5 Tibialis anterior strength: 5 Plantar flexion strength: 5 Extensor Hallicis Longus strength: 5 Sensory Exam: intact DTR/ Pathologic reflexes Biceps reflex- 2 Brachioradialis reflex- 2 Triceps reflex- 2 Patellar reflex- 2 Achilles reflex- 2 Babinski- negative Bailon reflex: Absent Gait and station Gait: Antalgic gait Images: I, Dr. Ward Schumacher, personally reviewed the images and my personal interpretation are: MRI cervical spine mild C4-5 disc prolapse MRI thoracic spine mild T11-12 disc prolapse MRI lumbar spine mild L3-4 disc prolapse Assessment and Plan 24 years presents with Neck, mid and low back pain Patient had complicated medical history, patient was diagnosed with congenital metroplastic nephroma that was ruled out after multiple testing, multiple foot surgery, and multiple UTI\. Explained the clinical and radiological findings with the patient and discussed management options, the cahnges in the MRI scan are mild for surgical management Recommended No current indication for surgical management Referral to pain management Answers submitted by the patient for this visit: Back Pain Questionnaire (Submitted on 02/02/2025) Chief Complaint: Back pain Chronicity: chronic Onset: more than 1 month ago Frequency: constantly Progression since onset: rapidly worsening Pain location: lumbar spine, thoracic spine Pain quality: aching, stabbing Pain - numeric: 10/10 Pain is: the same all the time Aggravated by: bending, lying down, sitting, standing, twisting Stiffness is present: all day abdominal pain: No bladder incontinence: No bowel incontinence: No chest pain: No leg pain: Yes numbness: Yes perianal numbness: No dysuria: Yes paresis: No pelvic pain: No paresthesias: No tingling: Yes weakness: Yes weight loss: No [1] No past surgical history on file. [2] No past medical history on file. [3] No past surgical history on file. [4] Not on File [5] No current outpatient medications on file. [6] No family history on file.[facility]10-02-[facility] History of Present illness Narrative* Pablo Beltran MD - 01/28/2025 4:11 PM EDT Images from the original note were not included. [facility] Neurology General Neurology Consultation Progress Note Consult Neurology Service: [phone] Primary Team: ED observation Chief Complaint and Reason for Consultation: Severe headache Subjective: Interval History: Blanka Farias is a 24 y.o. year old female for whom Neurology was consulted for chief complaintof severe headache which started 2-3 weeks ago and she currently rates it as 10/10 described as pounding. The headache is also associated with visual obscuration/blurry vision. She stated the blurry vision started before the headache symptoms started. The headache is located bifrontally and radiates towards the back of the head and sometimes radiates down her neck as well. She has a associated photophobia, phonophobia and nausea. She denies dizziness. She denies any positional aspect of the headache stating that it has worsened every position and it feels like her brain would pop out. There are no exacerbating or alleviating factors. Patient states she has no prior history of migraine or any other headache. I tried to do an ophthalmoscope examination on the patient however patient did notkeep her eyes open during the examination and the optic discs could not be visualized. Patient alsoreported numbness of the right upper extremity, she did not feel any light touch on the right side subjectively compared to the left side. However when I applied noxious stimuli patient was seen to be grimacing however she stated she did not feel any thing. Patient has a past medical history of congenital mesial plastic neuroma, macular degeneration, chronic UTI, chronic back and neck pain. She had [place] spine MRI which showed low-grade degenerative changes of the T-spine, normal MRI of the cervical spine, L4-L5 central disc protrusion or small herniation. Her MRI of the cervical spine also showed an empty sella turcica. Pertinent past Medical History/Family/Social History reviewed as per initial HPI. Pertinent Systems reviewed as per initial HPI, and negative as below except for mentioned above. Medications: Scheduled Meds: acetaminophen, 1,000 mg, intravenous, Q6H HUSSEIN AND prochlorperazine, 10 mg, intravenous, Q6H AND diphenhydrAMINE, 25 mg, intravenous, Q6H HUSSEIN AND magnesium sulfate, 1,000 mg, intravenous, Q6H sodium chloride, 3 mL, intravenous, Q12H HUSSEIN sulfamethoxazole-trimethoprim, 1 tablet, oral, Q12H HUSSEIN Continuous Infusions: dextrose 5 % in water, 100 mL/hr sodium chloride 0.9 %, 20 mL/hr, Last Rate: 20 mL/hr (01/28/25 0941) PRN Meds:. dextrose dextrose 5 % in water dextrose 50 % in water (D50W) glucagon (human recombinant) hydrOXYzine magnesium sulfate magnesium sulfate potassium chloride OR potassium chloride sodium chloride sodium chloride 0.9 % Physical Exam Vital Signs: Vitals: 01/28/25 1130 BP: 133/86 Pulse: 94 Resp: 21 Temp: 36.4 C (97.5 F) SpO2: 94% General: Normotensive, in no acute distress. Cardiac Examination: Heart: RRR, no murmurs, no rubs, no gallops. Carotids: No bruit Peripheral Vascular System: Peripheral pulses intact Neurological Examination: Higher Mental Function: Orientated to time, place, person Attention span and concentration intact Recent and Remote Memory Intact Language intact Fund of knowledge appropriate Ophthalmological Examination: Clear conjunctiva, no cataracts. Undilated ophthalmoscopic examination shows mildly blurred optic disc, posterior segments, retinal vessels, and fovea bilaterally. Cranial Nerve Examination: II: Normal tracking, no evidence of hemianopia or other visual field defect. III, IV, & : EOM intact, no ptosis, no nystagmus seen. Pupils are equal and reactive to light. V: Facial sensation is intact. VII: no facial asymmetry, facial movement intact. VIII: hearing is normal. IX-X: Palate elevates in the midline. XI: Normal trapezius strength and/or movement. XII: Tongue movement is normal, position is midline and no fasciculations are observed. Tongue strength intact. Motor: Power -- No focal motor weakness noted in BL upper or lower extremities. Bulk and muscle tone are intact in BL upper and lower extremities. No rigidity or spasticity. No atrophy or abnormal movements noted. No dystonia, or motor tics. No bradykinesia, postural or kinetic tremor noted. No fasciculation or myotonia noted. No abnormal movements noticed. No evidence of pseudo bulbar paralysis; no sialorrhea, difficulties swallowing. There were no tremors noted Deep Tendon Reflexes: Right, Left: Biceps 2, 2 Brachioradialis 2, 2 Triceps 2, 2 Patellae 2, 2 Achilles 2, 2 Plantar response was flexor bilaterally. No clonus or other pathological reflexes elicited. Sensory examination: Intact to light touch, pin-prick, vibration, and proprioception throughout. Romberg's test is negative. Cerebellar: Able to do mbuslq-dg-poeg and ukvl-ts-koph bilaterally; normal coordination Gait and station: Tandem gait is normal with normal stride length. Normal station/base and arm swing. Normal heel and toe walking. Pertinent Labs: Recent Results (from the past 72 hours) [place] draw Collection Time: 01/27/25 2:28 PM Narrative The following orders were created for panel order [place] draw. Procedure Abnormality Status --------- ------ Light Blue Top[[id number]] Final result Please view results for these tests on the individual orders. Comprehensive metabolic panel Collection Time: 01/27/25 2:28 PM Result Value Ref Range SODIUM 138 134 - 146 mmol/L POTASSIUM 4.7 3.5 - 5.0 mmol/L CHLORIDE 106 98 - 109 mmol/L CARBON DIOXIDE 27 22 - 32 mmol/L ANION GAP 5 5 - 15 mmol/L BLOOD UREA NITROGEN 11 5 - 23 mg/dL CREATININE 0.72 0.40 - 1.00 mg/dL GLUCOSE 90 65 - 99 mg/dL CALCIUM 9.5 8.5 - 10.5 mg/dL TOTAL PROTEIN 8.2 (H) 6.0 - 8.0 g/dL ALBUMIN 4.7 3.2 - 5.3 g/dL ALKALINE PHOSPHATASE 59 39 - 130 U/L AST 35 <=41 U/L ALT 18 <=31 U/L BILIRUBIN,TOTAL 0.6 0.3 - 1.2 mg/dL EGFR Non-Race Dependent >90 >=60 ml/min/1.73sq.m Troponin I, High Sensitivity Collection Time: 01/27/25 2:28 PM Narrative The following orders were created for panel order Troponin I, High Sensitivity. Procedure Abnormality Status --------- ------ Troponin I, High Sensiti...[[id number]] Normal Final result Troponin I, High Sensiti...[[id number]] Normal Final result Please view results for these tests on the individual orders. Light Blue Top Collection Time: 01/27/25 2:28 PM Result Value Ref Range Extra Tube Auto Resulted Troponin I, High Sensitivity 0 Hour Collection Time: 01/27/25 2:28 PM Result Value Ref Range TROPONIN I, HIGH SENSITIVITY <2 <16 ng/L CBC auto differential Collection Time: 01/27/25 2:29 PM Result Value Ref Range WBC 12.0 (H) 4 - 11 x10E9/L RBC Count 4.81 3.8 - 5.2 X10E12/L Hemoglobin 13.2 11.7 - 15.5 g/dL Hematocrit 39.2 35 - 47 % MCV 81 80 - 100 fL MCH 27.4 27 - 34 pg MCHC 33.7 32 - 36 g/dL RDW 16.6 (H) 11.5 - 15 % Platelet Count 378 150 - 450 X10E9/L MPV 8.3 7 - 12 fL Neutrophils % 77.5 % Lymphocytes % 14.9 % Monocytes % 6.3 % Eosinophils % 0.7 % Basophils % 0.6 % Neutrophils Absolute (A) 9.3 (H) 1.5 - 6.6 10*3/uL Lymphocytes Absolute 1.8 1.0 - 3.5 10*3/uL Monocytes Absolute 0.8 0.0 - 0.9 10*3/uL Eosinophils Absolute 0.1 0.0 - 0.4 10*3/uL Basophils Absolute 0.1 0.0 - 0.2 10*3/uL Differential Type AUTOMATED DIFFERENTIAL Troponin I, High Sensitivity 1 Hour Collection Time: 01/27/25 3:27 PM Result Value Ref Range TROPONIN I, HIGH SENSITIVITY <2 <16 ng/L POCT Nursing Urine Macroscopic UA Collection Time: 01/27/25 6:29 PM Result Value Ref Range POC Urine Specific [place] 1.020 1.010, 1.015, 1.020, 1.025 POC Urine Leukocyte Esterase Large (A) Negative POC Urine Nitrite Positive (A) Negative POC Urine pH 7.0 5.0, 6.0, 6.5, 7.0, 7.5, 8.0, 8.5, 5.5 POC Urine Protein >=300 mg/dL (A) Negative POC Urine Glucose Negative Negative POC Urine Ketones 15 mg/dL (A) Negative POC Urine Urobilinogen 0.2 E.U./dL POC Urine Bilirubin Negative Negative POC Urine Blood/HGB Moderate (A) Negative POCT , urine Collection Time: 01/27/25 6:30 PM Result Value Ref Range POC Urine Negative Negative, Indeterminate Er Extra Urine Collection Time: 01/27/25 6:54 PM Specimen: Urine Result Value Ref Range Extra Tube Auto Resulted CBC auto differential Collection Time: 01/28/25 5:46 AM Result Value Ref Range WBC 10.6 4 - 11 x10E9/L RBC Count 4.60 3.8 - 5.2 X10E12/L Hemoglobin 12.6 11.7 - 15.5 g/dL Hematocrit 37.1 35 - 47 % MCV 81 80 - 100 fL MCH 27.3 27 - 34 pg MCHC 33.9 32 - 36 g/dL RDW 16.3 (H) 11.5 - 15 % Platelet Count 317 150 - 450 X10E9/L MPV 8.3 7 - 12 fL Neutrophils % 73.4 % Lymphocytes % 17.7 % Monocytes % 7.3 % Eosinophils % 1.0 % Basophils % 0.6 % Neutrophils Absolute (A) 7.8 (H) 1.5 - 6.6 10*3/uL Lymphocytes Absolute 1.9 1.0 - 3.5 10*3/uL Monocytes Absolute 0.8 0.0 - 0.9 10*3/uL Eosinophils Absolute 0.1 0.0 - 0.4 10*3/uL Basophils Absolute 0.1 0.0 - 0.2 10*3/uL Differential Type AUTOMATED DIFFERENTIAL Comprehensive metabolic panel Collection Time: 01/28/25 5:46 AM Result Value Ref Range SODIUM 141 134 - 146 mmol/L POTASSIUM 4.2 3.5 - 5.0 mmol/L CHLORIDE 109 98 - 109 mmol/L CARBON DIOXIDE 23 22 - 32 mmol/L ANION GAP 9 5 - 15 mmol/L BLOOD UREA NITROGEN 9 5 - 23 mg/dL CREATININE 0.70 0.40 - 1.00 mg/dL GLUCOSE 99 65 - 99 mg/dL CALCIUM 9.0 8.5 - 10.5 mg/dL TOTAL PROTEIN 7.1 6.0 - 8.0 g/dL ALBUMIN 4.3 3.2 - 5.3 g/dL ALKALINE PHOSPHATASE 58 39 - 130 U/L AST 21 <=41 U/L ALT 14 <=31 U/L BILIRUBIN,TOTAL 0.6 0.3 - 1.2 mg/dL EGFR Non-Race Dependent >90 >=60 ml/min/1.73sq.m Imaging: MRV head with and without contrast Result Date: 01/28/2025 Narrative: MR MRV HEAD W WO CONT CLINICAL INDICATION:headache COMPARISON: None TECHNIQUE: Routine noncontrast, [id number], MR venogram was performed. Maximum intensity projection volumetric reformatted images were generated. Postcontrast 3-D MPRAGE. FINDINGS: Narrowed distal transverse sinuses b ilaterally. Patent superior sagittal sinus, transverse sinuses, sigmoid sinuses and proximal internal jugular veins. Symmetric cortical venous enhancement. Expanded sella with flat pituitary. CSF engorged optic nerve sheaths IMPRESSION: Venous morphologic and other anatomic features suggestive of intracranial hypertension. Please correlate clinically. Patent dural venous sinuses. Finalized by Jonathan Pang MD on 01/28/2025 5:48 AM MR brain with and without contrast Result Date: 01/28/2025 Narrative: STUDY: MRI brain with without contrast . CLINICAL HISTORY: headache COMPARISON: None. Procedure: Multiplanar, multisequence imaging performed through the brain, including pre and post contrast T1 weighted images using IV contrast. Findings: Moderate brain atrophy There is an empty sella which can be physiologic] can be seen with idiopathic intracranial hypertension and findings best assessed in combination with other clinical data There are no intracranial masses, mass-effect, extra-axial fluid collection, or hydrocephalus. Sensitivity for acute hemorrhage limited on MRI, but grossly no acute hemorrhage identified. Midline sagittal structures are unremarkable including pituitary fossa, infundibulum, optic chiasm, corpus callosum, brainstem, fourth ventricle, cerebellum, and cranio-cervical junction. Flow voids documented in [place] and dural venous sinuses. No pathologic contrast enhancement. Diffusion weighted images show no evidence for acute infarct. The deep white matter shows no acute changes. IMPRESSION: Moderate brain atrophy There is an empty sella which can be physiologic but can be seen with idiopathic intracranial hypertension and findings best assessed in combination with other clinical data * Finalized by Shane Graves MD on 01/28/2025 5:34 AM X-ray foot left minimum 3 views Result Date: 01/27/2025 Narrative: XR FOOT LT MIN 3 VWS Clinical Information: previous bone graft, c/f osteomyelitis. Please compare to prior study Comparison: None. IMPRESSION: * No acute fracture. Deformity of the first proximal phalanx likely related to remote trauma. Postsurgical changes in the ankle and midfoot with fusion. Mild eccentric sclerosis in the calcaneus, nonspecific. Soft tissue swelling. Finalized by Luis Carlos Atkins MD on 01/27/2025 4:43 PM MR TRA radiologist overread Result Date: 01/27/2025 Narrative: Outside Study: MRI OF THE THORACIC SPINE WITHOUT CONTRAST CLINICAL HISTORY: Neck and back pain COMPARISON: None. TECHNIQUE: Multiplanar MRI of the thoracic spine without contrast.. Initialstudy [facility]. Second opinion was requested by Dr. Sharona Oliveros. FINDINGS: There is no malalignment of the thoracic spine. There is no loss of the vertebral body or disc space heights. There are small nonaggressive degenerative Schmorl's nodes within the mid to lower thoracic spine. There are no discrete worrisome bone marrow signal abnormalities. There is no evidence of bone marrow edema. There are no convincing signal abnormalities of the thoracic cord. Disc s pace levels: At T6-T7, there is a tiny central disc protrusion barely indenting thecal sac. At T8-T9, there is a very tiny right paracentral disc protrusion barely flattening the thecal sac. At T11-T12, there is a minimal disc bulge flattening the thecal sac. There is no evidence of canal stenosis,neural foraminal stenosis, or focal nerve impingement within the thoracic spine. IMPRESSION: 1. 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 There is no evidence of canal stenosis, neural foraminal stenosis, or focal nerve impingement. PLEASE NOTE: Our interpretation of studies performed at an outside institution is limited by factors including the absence of technical specifics of the image, undisclosed clinical information and the unavailability of the original interpretation. Specialists at the institution that performed the study may have access to information not available to us that could make a difference in this interpretation. We suggest that you obtain the original interpretation from the site where the study was performed. Finalized by Kobi Musa MD on 01/27/2025 3:53 PM MR TRA radiologist overread Result Date: 01/27/2025 Narrative: Outside Study: MRI OF THE CERVICAL SPINE WITHOUT CONTRAST CLINICAL HISTORY: Cervical pain. COMPARISON: None. TECHNIQUE: Multiplanar MRI of the cervical spine without contrast.. Initial study performed on 01/26/2025 at [facility] Second opinion was requested by Dr. Sharona Oliveros. FINDINGS: There is straightening of the lordotic curvature. There is no malalignment within the cervical spine. There is no loss of the vertebral body or disc space heights in the cervical spine. There are no bone marrow signal abnormalities. The craniocervical junction is within normal limits. There is an empty sella turcica. There are no convincing signal abnormalities of the cervical cord. Disc spacelevels: C2-C3: The disc is unremarkable. C3-C4: The disc is unremarkable. C4-C5: The disc is unremarkable. C5-C6: The disc is unremarkable. C6-C7: The disc is unremarkable. C7-T1: The disc is unremarkable. IMPRESSION: 1. Unremarkable MRI of the cervical spine without contrast, as detailed above. 2. Incidental visualization of an empty sella turcica. PLEASE NOTE: Our interpretation of studies performed at an outside institution is limited by factors including the absence of technical specifics of the image, undisclosed clinical information and the unavailability of the original interpretation. Specialists at the institution that performed the study may have access to information not available to us that could make a difference in this interpretation. We suggest that you obtain the originalinterpretation from the site where the study was performed. Finalized by Kobi Gates MD on 01/27/2025 3:50 PM MR TRA radiologist overread Result Date: 01/27/2025 Narrative: Outside Study: 6 series from a lumbar spine without contrast from [facility] dated 01/15/2025 were submitted for second opinion. CLINICAL HISTORY: Neck pain. Degenerative change COMPARISON: 06/10/2021 MR from [facility] TECHNIQUE: MR lumbar spine without contrast. Initial study performed on 01/15/2025 Second opinion was requested by Dr. Oliveros FINDINGS: MR of the lumbar spine without contrast with the above history demonstrates lumpy contour of the kidneys, especially the leftkidney. The other paravertebral structures appear unremarkable. Degenerative bulge of the T11-T12 disc may be associated with small posterior annular tear and bulges into the anterior subarachnoid space without high-grade spinal stenosis. The T12-L1, L1-2, and L2-3 levels are unremarkable without disc herniation, significant spinal stenosis or foraminal stenosis. At L3-4 there are mild degenerative changes within the disc which bulges posteriorly to result in mild to moderate narrowing of the thecal sac. The disc bulge extends into the foramina without significant foraminal stenosis. At L4-5 there are degenerative changes within the disc with small central disc protrusion and posterior annular tear. This results in mild to moderate impingement upon the thecal sac but no significant foraminal stenosis. At L5-S1 there is a small posterior annular tear within the bulging disc without signif icant compression of the thecal sac or foraminal stenosis. IMPRESSION: L4-5 central disc protrusionor small herniation with annular tear indents the anterior thecal sac and results in mild to moderate spinal stenosis. There is no foraminal stenosis at this level. Small annular tears also noted at L5-S1 disc and possibly T11-12 disc. PLEASE NOTE: Our interpretation of studies performed at an outside institution is limited by factors including the absence of technical specifics of the image, undisclosed clinical information and the unavailability of the original interpretation. Specialists at the institution that performed the study may have access to information not available to us that could make a difference in this interpretation. We suggest that you obtain the original interpretation from the site where the study was performed. Finalized by Jace Gaspar MD on01/27/2025 3:50 PM Other Testing: Assessment: This is a 24-year-old female for whom Neurology was consulted for severe headache associated with numbness of the right upper extremity and visual obs security/blurry vision which started 2-3 weeks ago. 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 Fatty liver Gastrocnemius equinus Osteochondral lesion of talar dome Peroneal tendinitis of right lower extremity Retinal dystrophy Sinus tarsi syndrome of right ankle Migraine Imaging: MRI brain concerning for moderate brain atrophy, empty sella which can be physiology what can be seen with IIH MRV head concerning for venous morphologic and other anatomic features suggestive of intracranial hypertension Impression: Subacute severe headache associated with visual obscuration and numbness of right upper extremity, differentials include IIH versus migraine headache, headache resolved after migraine cocktail Plan: Patient's headache resolved after migraine cocktail and she was back to baseline Recommend follow up with General Neurology outpatient Recommend follow up with the Ophthalmology to rule out papilledema No further recommendations from Neurology, we will sign off Signed by Pablo Beltran MD Neurology Resident, [facility] Please contact via secure chat Staffed with: Dr. Gideon MD This patient is being followed by the Neurology Resident service. Contact attending directly during these hours: Saturday to 7:30-8:30 A.M. to Saturday 12-1:00 p.m. Primary Neurology service: [phone] Consult neurology service: [phone] Resident Stroke Service: [phone] If the patient belongs to the Stroke RALPH service please contact the Stroke RALPH directly. Cosigned by Leo Meneses MD at 01/28/2025 8:48 PM EDT Associated attestation - Leo Meneses MD - 01/28/2025 8:48 PM EDT Attending Attestation: I saw the patient. I participated and was physically present during the critical/manjarrez portions of the service. I was directly involved in the management and treatment plan of the patient. I reviewed the resident's note and agree with the documentation. Additional Notes/Findings: 24-year-old female for whom Neurology was consulted for severe headache associated with numbness ofthe right upper extremity and visual obs security/blurry vision which started 2-3 weeks ago. Labs unremarkable. CT head with no evidence of acute abnormality. MRI and MRV reviewed with findings concerning of IIH. However, her symptoms were suggestive of Migraine headcahe which resolved after symptomatic management. Advised to keep headache diary and follow with Neurology as outpatient Recommend Ophthalmology follow up to rule out papilledema. Leo Meneses MD. Neurohospitalist [facility] Note* Yenifer Mcallister RN - 01/28/2025 2:22 PM EDT Patient discharged to home. AVS signed and reviewed with patient and mother at bedside. Patient andmother verbalize understanding. PIV removed; patient tolerated well. No s/s of distress noted at this time. [facility] Note* Yenifer Mcallister RN - 01/28/2025 2:22 PM EDT Patient discharged to home. AVS signed and reviewed with patient and mother at bedside. Patient andmother verbalize understanding. PIV removed; patient tolerated well. No s/s of distress noted at this time. [facility] in [facility] Hospital Discharge instructions* Discharge Instructions* Gale Trent APRN-FRANCIE - 01/28/2025 1:37 PM EDT Start the prescribed Bactrim antibiotic for your UTI, take as directed Follow up with Opthalmology, call for appointment - [facility] [address] [facility] [address] Follow up with Neurology, call for appointment - [facility] [address] [place] [address], [phone] [facility] [phone] Return to the hospital if you develop fevers (100.4 F or higher), reoccurrence or worsening of symptoms, severe difficulty breathing or chest pains, uncontrollable vomiting / diarrhea and unable to keep anything down, numbness, paralysis/weakness on one side of your body, you pass out/fall/cannot walk or any other concerning signs or symptoms * Attachments The following attachments cannot be sent through Care Everywhere. * Urinary tract infection in adults ED discharge instructions (Jamaican) * Headache in adults ED discharge instructions (Jamaican) * Idiopathic Intracranial Hypertension Discharge Instructions (Jamaican) documented in this [facility] Hospital course Narrative* Mame Schmidt MD - 01/28/2025 1:33 PM EDT Images from the original note were not included. ED OBSERVATION DISCHARGE SUMMARY Admitting Physician: Mame Schmidt MD Discharge Provider: Mame Schmidt MD Primary Care Physician: LOUISE LEMOS MD [phone] Observation Services End Date and Time: No discharge date for patient encounter. Length of Stay: 0 days Chief Complaint Patient presents with Loss of Vision Neck Pain Difficulty Urinating Numbness Evaluation of Abnormal Diagnostic Test Active Problems: * No active hospital problems. * HISTORY: Please refer to this visit's H&P note HOSPITAL COURSE: Admitted for migraine headache and neck pain with visual disturbances. MRI imaging performed and and neurology consulted who cleared patient for dicharge home. Patient had resolution of symptoms. Chest Pain Only: The ASCVD Risk score ([place] DK, et al., 2019) failed to calculate for the following reasons: The 2019 ASCVD risk score is only valid for ages 40 to 79 PHYSICAL EXAM: Vitals: 01/28/25 1130 BP: 133/86 Pulse: 94 Resp: 21 Temp: 36.4 C (97.5 F) SpO2: 94% Physical Exam Constitutional She is oriented to person, place, and time. She appears well- developed and well-nourished. No distress. Nursing note and vitals reviewed. HENT Head Normocephalic and atraumatic. Ears Right Ear: External ear normal. Left Ear: External ear normal. Eyes: Conjunctivae and EOM are normal. Right eye exhibits no discharge. Left eye exhibits no discharge. Neck Normal range of motion. Neck supple. Cardiovascular: Normal rate and regular rhythm. No murmur heard. Heart Sounds: normal heart sounds. Pulmonary/Chest: Effort normal and breath sounds normal. She has no wheezes. No respiratory distress. Abdominal: She exhibits no distension. Soft. There is no abdominal tenderness. There is no rebound and no guarding. Musculoskeletal: General: Normal range of motion. Cervical back: Normal range of motion and neck supple. Neurological She is alert and oriented to person, place, and time. Neck supple Skin: Skin is warm and dry. No rash noted. Psychiatric: She has a normal mood and affect. Her behavior is normal. Judgment and thought content normal. DISCHARGE DIAGNOSIS: Migraine headache with visual disturbance Discharge to: Final discharge disposition not confirmed Discharge condition: good What is needed: close outpatient follow up within 1-3 days for re-evaluation of issues detailed above; return precautions given to return to the ED immediately for any worsening symptoms Future Appointments Date Time Provider Department Center 02/25/2025 11:15 AM Erinn Johnson MD MPH [facility] Follow-up Information [facility]. Call. Specialty: Ophthalmology Why: for further evaluation and management of your blurry vision Contact information: [address] [facility] [address] Scheduled Appointments Feb 25, 2025 11:15 AM (Arrive by 11:00 AM) New Patient with Erinn Johnson MD MPH [facility], A Department of [facility] ([facility]) [address] [place] [phone] At the time of your visit please be aware of the following COVID-19 information: If you develop a new cough, fever, or shortness of breath, please call before your appointment. Please plan to arrive at least 15 minutes earlier than your appointment time as screening and registration may take longer than anticipated. Completing eCheck-in to pre-register and pay any prepayments due will allow you to have an expedited arrival process for your visit. Please be aware that the [facility] facility you are visiting may require you to wear a mask. It will not be unusual if you find that masking is required in some locations and not required in other locations. The determination is made based on the amount of COVID transmission and infection rate in the community where the facility is located. Please be prepared to wear a mask if the facility you are visiting requires masking. Masks are available upon entry into the facility; however, it is best to bring your own mask and put it on before entering the facility. If wearing a mask is not possible due to an underlying health condition, please work with your care team on an alternate plan before your scheduled appointment. Medication List ASK your doctor about these medications Instructions Last Dose Given Next Dose Due cholecalciferol (vitamin D3) 2,000 units capsule TAKE 1 CAPSULE BY MOUTH EVERY DAY FOR 90 DAYS hydrOXYzine 25 mg tablet Commonly known as: ATARAX Take 1 tablet (25 mg total) by mouth. ibuprofen 800 mg tablet Commonly known as: MOTRIN Take 1 tablet (800 mg total) by mouth every 6 (six) hours. oxyCODONE 10 mg 12 hr tablet Commonly known as: OxyCONTIN Take 1 tablet (10 mg total) by mouth every 12 (twelve) hours. Max Daily Amount: 20 mg oxyCODONE-acetaminophen 5-325 mg per tablet Commonly known as: PERCOCET TAKE 1 TABLET NEEDED BY MOUTH EVERY 6 HRS M51.36 VIENVA 0.1-20 mg-mcg per tablet Generic drug: levonorgestreL-ethinyl estrad TAKE 1 TABLET BY MOUTH EVERY DAY FOR 28 DAYS Information provided to the: Patient Please refer to electronic discharge documentation for further details regarding discharge plan. PHYSICIAN ATTESTATION: Time spent by physician coordinating discharge: 30 minutes or less I, the supervising physician, spent the majority of this time performing discharge related services. I made or approved the management plan for the problems addressed during this encounter and take responsibility for the management plan. documented in [facility] History and physical note* Mame Schmidt MD - 01/28/2025 9:15 AM EDT Images from the original note were not included. ED OBSERVATION HISTORY AND PHYSICAL Primary Care Physician: LOUISE LEMOS MD [phone] Admitting Physician: Mame Schmidt MD ED Date: 01/27/2025 1355 Obs date: 01/27/2025 1906 Chief Complaint Patient presents with Loss of Vision Neck Pain Difficulty Urinating Numbness Evaluation of Abnormal Diagnostic Test Principal Problem: Migraine HISTORY OF PRESENT ILLNESS: 24 year old female presents with multiple complaints including loss of vision, neck pain, difficulty urinating, and numbness. She also had recent MRIs performed at an outside facility. Currently, on evaluation in the observation unit, patient describes that all of her symptoms have resolved. Motheris also at bedside and is providing history. Patient is aware of the UTI per results and indicates she has had frequent UTIs in the past. Neurology was consulted and evaluated the patient. PAST MEDICAL HISTORY: Past Medical History: Diagnosis Date Chronic kidney disease Depression Headache Low back pain Lumbar disc disorder Visual impairment Last Menstrual Period No LMP recorded. PAST SURGICAL HISTORY: Past Surgical History: Procedure Laterality Date CHOLECYSTECTOMY FOOT SURGERY KNEE SURGERY TONSILLECTOMY TUBAL LIGATION FAMILY HISTORY: Family History Problem Relation Age of Onset Diabetes Paternal Grandfather Heart disease Paternal Grandfather Parkinsonism Paternal Grandfather SOCIAL HISTORY: Social History Socioeconomic History Marital status: Single Tobacco Use Smoking status: Never Smokeless tobacco: Never Substance and Sexual Activity Alcohol use: Never Drug use: Yes Types: Marijuana Sexual activity: Defer Social Drivers of Health Food Insecurity: No Food Insecurity (01/27/2025) Hunger Screening Food Insecurity - Worry: Never True Food Insecurity - Inability: Never True Received from [facility] Travel Screening Question Response Have you been in contact with someone who was sick? No / Unsure Do you have any of the following new or worsening symptoms? Fatigue;Joint pain;Muscle pain;Severe headache;Weakness Have you traveled internationally or domestically in the last month? No Travel History Travel since 12/29/24 No documented travel since 12/29/24 ALLERGIES: Allergies Allergen Reactions [id number] Other (See Comments) red eyes Topiramate Swelling Eye drops; eyes swollen and red HOME MEDICATIONS: Medications Prior to Admission Medication Sig Dispense Refill Last Dose/Taking cholecalciferol, vitamin D3, 2,000 units capsule TAKE 1 CAPSULE BY MOUTH EVERY DAY FOR 90 DAYS hydrOXYzine (ATARAX) 25 mg tablet Take 1 tablet (25 mg total) by mouth. ibuprofen (MOTRIN) 800 mg tablet Take 1 tablet (800 mg total) by mouth every 6 (six) hours. oxyCODONE (OxyCONTIN) 10 mg 12 hr tablet Take 1 tablet (10 mg total) by mouth every 12 (twelve) hours. Max Daily Amount: 20 mg oxyCODONE-acetaminophen (PERCOCET) 5-325 mg per tablet TAKE 1 TABLET NEEDED BY MOUTH EVERY 6 HRSM51.36 VIENVA 0.1-20 mg-mcg per tablet TAKE 1 TABLET BY MOUTH EVERY DAY FOR 28 DAYS IMMUNIZATIONS: There is no immunization history on file for this patient. REVIEW OF SYSTEMS: Review of Systems Constitutional: Negative for fever, diaphoresis, activity change and appetite change. HENT: Positive for vision change. Negative for congestion and sore throat. Eyes: Positive for visual disturbance. Negative for pain and discharge. Respiratory: Negative for chest tightness and shortness of breath. Cardiovascular: Negative for chest pain and chest discomfort. Gastrointestinal: Positive for constipation. Negative for nausea, vomiting, abdominal pain and diarrhea. Genitourinary: Positive for difficulty urinating. Negative for flank pain. Musculoskeletal: Positive for neck pain and neck stiffness. Negative for back pain. Skin: Negative for pallor and rash. Neurological: Positive for numbness and headaches. Negative for dizziness, syncope and weakness. Psychiatric/Behavioral: Negative for agitation, behavioral problems and confusion. All other systems reviewed and are negative. PHYSICAL EXAM: Vitals: 01/28/25 0659 BP: 137/73 Pulse: 83 Resp: 16 Temp: 36.6 C (97.9 F) SpO2: 96% O2 Device: None (Room air) Physical Exam Constitutional She is oriented to person, place, and time. She appears well- developed and well-nourished. No distress. Nursing note and vitals reviewed. HENT Head Normocephalic and atraumatic. Ears Right Ear: External ear normal. Left Ear: External ear normal. Eyes: Conjunctivae and EOM are normal. Right eye exhibits no discharge. Left eye exhibits no discharge. Neck Normal range of motion. Neck supple. Cardiovascular: Normal rate and regular rhythm. No murmur heard. Heart Sounds: normal heart sounds. Pulmonary/Chest: Effort normal and breath sounds normal. She has no wheezes. No respiratory distress. Abdominal: She exhibits no distension. Soft. There is no abdominal tenderness. There is no rebound and no guarding. Musculoskeletal: General: Normal range of motion. Cervical back: Normal range of motion and neck supple. Neurological She is alert and oriented to person, place, and time. Skin: Skin is warm and dry. No rash noted. Psychiatric: She has a normal mood and affect. Her behavior is normal. Judgment and thought content normal. RECENT RESULTS: Recent Results (from the past 24 hours) [place] draw Collection Time: 01/27/25 2:28 PM Narrative The following orders were created for panel order [place] draw. Procedure Abnormality Status --------- ------ Light Blue Top[[id number]] Final result Please view results for these tests on the individual orders. Comprehensive metabolic panel Collection Time: 01/27/25 2:28 PM Result Value Ref Range SODIUM 138 134 - 146 mmol/L POTASSIUM 4.7 3.5 - 5.0 mmol/L CHLORIDE 106 98 - 109 mmol/L CARBON DIOXIDE 27 22 - 32 mmol/L ANION GAP 5 5 - 15 mmol/L BLOOD UREA NITROGEN 11 5 - 23 mg/dL CREATININE 0.72 0.40 - 1.00 mg/dL GLUCOSE 90 65 - 99 mg/dL CALCIUM 9.5 8.5 - 10.5 mg/dL TOTAL PROTEIN 8.2 (H) 6.0 - 8.0 g/dL ALBUMIN 4.7 3.2 - 5.3 g/dL ALKALINE PHOSPHATASE 59 39 - 130 U/L AST 35 <=41 U/L ALT 18 <=31 U/L BILIRUBIN,TOTAL 0.6 0.3 - 1.2 mg/dL EGFR Non-Race Dependent >90 >=60 ml/min/1.73sq.m Troponin I, High Sensitivity Collection Time: 01/27/25 2:28 PM Narrative The following orders were created for panel order Troponin I, High Sensitivity. Procedure Abnormality Status --------- ------ Troponin I, High Sensiti...[[id number]] Normal Final result Troponin I, High Sensiti...[[id number]] Normal Final result Please view results for these tests on the individual orders. Light Blue Top Collection Time: 01/27/25 2:28 PM Result Value Ref Range Extra Tube Auto Resulted Troponin I, High Sensitivity 0 Hour Collection Time: 01/27/25 2:28 PM Result Value Ref Range TROPONIN I, HIGH SENSITIVITY <2 <16 ng/L CBC auto differential Collection Time: 01/27/25 2:29 PM Result Value Ref Range WBC 12.0 (H) 4 - 11 x10E9/L RBC Count 4.81 3.8 - 5.2 X10E12/L Hemoglobin 13.2 11.7 - 15.5 g/dL Hematocrit 39.2 35 - 47 % MCV 81 80 - 100 fL MCH 27.4 27 - 34 pg MCHC 33.7 32 - 36 g/dL RDW 16.6 (H) 11.5 - 15 % Platelet Count 378 150 - 450 X10E9/L MPV 8.3 7 - 12 fL Neutrophils % 77.5 % Lymphocytes % 14.9 % Monocytes % 6.3 % Eosinophils % 0.7 % Basophils % 0.6 % Neutrophils Absolute (A) 9.3 (H) 1.5 - 6.6 10*3/uL Lymphocytes Absolute 1.8 1.0 - 3.5 10*3/uL Monocytes Absolute 0.8 0.0 - 0.9 10*3/uL Eosinophils Absolute 0.1 0.0 - 0.4 10*3/uL Basophils Absolute 0.1 0.0 - 0.2 10*3/uL Differential Type AUTOMATED DIFFERENTIAL Troponin I, High Sensitivity 1 Hour Collection Time: 01/27/25 3:27 PM Result Value Ref Range TROPONIN I, HIGH SENSITIVITY <2 <16 ng/L POCT Nursing Urine Macroscopic UA Collection Time: 01/27/25 6:29 PM Result Value Ref Range POC Urine Specific [place] 1.020 1.010, 1.015, 1.020, 1.025 POC Urine Leukocyte Esterase Large (A) Negative POC Urine Nitrite Positive (A) Negative POC Urine pH 7.0 5.0, 6.0, 6.5, 7.0, 7.5, 8.0, 8.5, 5.5 POC Urine Protein >=300 mg/dL (A) Negative POC Urine Glucose Negative Negative POC Urine Ketones 15 mg/dL (A) Negative POC Urine Urobilinogen 0.2 E.U./dL POC Urine Bilirubin Negative Negative POC Urine Blood/HGB Moderate (A) Negative POCT , urine Collection Time: 01/27/25 6:30 PM Result Value Ref Range POC Urine Negative Negative, Indeterminate Er Extra Urine Collection Time: 01/27/25 6:54 PM Specimen: Urine Result Value Ref Range Extra Tube Auto Resulted CBC auto differential Collection Time: 01/28/25 5:46 AM Result Value Ref Range WBC 10.6 4 - 11 x10E9/L RBC Count 4.60 3.8 - 5.2 X10E12/L Hemoglobin 12.6 11.7 - 15.5 g/dL Hematocrit 37.1 35 - 47 % MCV 81 80 - 100 fL MCH 27.3 27 - 34 pg MCHC 33.9 32 - 36 g/dL RDW 16.3 (H) 11.5 - 15 % Platelet Count 317 150 - 450 X10E9/L MPV 8.3 7 - 12 fL Neutrophils % 73.4 % Lymphocytes % 17.7 % Monocytes % 7.3 % Eosinophils % 1.0 % Basophils % 0.6 % Neutrophils Absolute (A) 7.8 (H) 1.5 - 6.6 10*3/uL Lymphocytes Absolute 1.9 1.0 - 3.5 10*3/uL Monocytes Absolute 0.8 0.0 - 0.9 10*3/uL Eosinophils Absolute 0.1 0.0 - 0.4 10*3/uL Basophils Absolute 0.1 0.0 - 0.2 10*3/uL Differential Type AUTOMATED DIFFERENTIAL Comprehensive metabolic panel Collection Time: 01/28/25 5:46 AM Result Value Ref Range SODIUM 141 134 - 146 mmol/L POTASSIUM 4.2 3.5 - 5.0 mmol/L CHLORIDE 109 98 - 109 mmol/L CARBON DIOXIDE 23 22 - 32 mmol/L ANION GAP 9 5 - 15 mmol/L BLOOD UREA NITROGEN 9 5 - 23 mg/dL CREATININE 0.70 0.40 - 1.00 mg/dL GLUCOSE 99 65 - 99 mg/dL CALCIUM 9.0 8.5 - 10.5 mg/dL TOTAL PROTEIN 7.1 6.0 - 8.0 g/dL ALBUMIN 4.3 3.2 - 5.3 g/dL ALKALINE PHOSPHATASE 58 39 - 130 U/L AST 21 <=41 U/L ALT 14 <=31 U/L BILIRUBIN,TOTAL 0.6 0.3 - 1.2 mg/dL EGFR Non-Race Dependent >90 >=60 ml/min/1.73sq.m Microbiology Results No results found for the last 168 hours. MRV head with and without contrast Result Date: 01/28/2025 MR MRV HEAD W WO CONT CLINICAL INDICATION:headache COMPARISON: None TECHNIQUE: Routine noncontrast,[id number], MR venogram was performed. Maximum intensity projection volumetric reformatted images were generated. Postcontrast 3-D MPRAGE. FINDINGS: Narrowed distal transverse sinuses bilaterally. Patent superior sagittal sinus, transverse sinuses, sigmoid sinuses and proximal internal jugular veins. Symmetric cortical venous enhancement. Expanded sella with flat pituitary. CSF engorged opticnerve sheaths IMPRESSION: Venous morphologic and other anatomic features suggestive of intracranialhypertension. Please correlate clinically. Patent dural venous sinuses. Finalized by Jonathan Pang MD on 01/28/2025 5:48 AM MR brain with and without contrast Result Date: 01/28/2025 STUDY: MRI brain with without contrast . CLINICAL HISTORY: headache COMPARISON: None. Procedure: Multiplanar, multisequence imaging performed through the brain, including pre and post contrast T1 weighted images using IV contrast. Findings: Moderate brain atrophy There is an empty sella which can be physiologic] can be seen with idiopathic intracranial hypertension and findings best assessed in co mbination with other clinical data There are no intracranial masses, mass- effect, extra-axial fluidcollection, or hydrocephalus. Sensitivity for acute hemorrhage limited on MRI, but grossly no acutehemorrhage identified. Midline sagittal structures are unremarkable including pituitary fossa, infundibulum, optic chiasm, corpus callosum, brainstem, fourth ventricle, cerebellum, and cranio-cervical junction. Flow voids documented in [place] and dural venous sinuses. No pathologic contrast enhancement. Diffusion weighted images show no evidence for acute infarct. The deep white matter shows no acute changes. IMPRESSION: Moderate brain atrophy There is an empty sella which can be physiologic but can be seen with idiopathic intracranial hypertension and findings best assessed in combination with other clinical data * Finalized by Shane Graves MD on 01/28/2025 5:34 AM X-ray foot left minimum 3 views Result Date: 01/27/2025 XR FOOT LT MIN 3 VWS Clinical Information: previous bone graft, c/f osteomyelitis. Please compare to prior study Comparison: None. IMPRESSION: * No acute fracture. Deformity of the first proximal phalanx likely related to remote trauma. Postsurgical changes in the ankle and midfoot with fusion. Mild eccentric sclerosis in the calcaneus, nonspecific. Soft tissue swelling. Finalized by Luis Carlos Atkins MD on 01/27/2025 4:43 PM MR TRA radiologist overread Result Date: 01/27/2025 Outside Study: MRI OF THE THORACIC SPINE WITHOUT CONTRAST CLINICAL HISTORY: Neck and back pain COMPARISON: None. TECHNIQUE: Multiplanar MRI of the thoracic spine without contrast.. Initial study performed on 01/15/2025 at [facility]. Second opinion was requested by Dr. Sharona Oliveros. FINDINGS: There is no malalignment of the thoracic spine. There is no loss of the vertebral body or disc space heights. There are small nonaggressive degenerative Schmorl's nodes within the mid to lower thoracicspine. There are no discrete worrisome bone marrow signal abnormalities. There is no evidence of bone marrow edema. There are no convincing signal abnormalities of the thoracic cord. Disc space levels: At T6-T7, there is a tiny central disc protrusion barely indenting thecal sac. At T8-T9, there reinaldo very tiny right paracentral disc protrusion barely flattening the thecal sac. At T11-T12, there is a minimal disc bulge flattening the thecal sac. There is no evidence of canal stenosis, neural foraminal stenosis, or focal nerve impingement within the thoracic spine. IMPRESSION: 1. 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 There is no evidence of canal stenosis, neural foraminal stenosis, or focal nerve impingement. PLEASE NOTE: Our interpretation of studies performed at an outside institution is limited by factors including the absence of technical specifics o f the image, undisclosed clinical information and the unavailability of the original interpretation. Specialists at the institution that performed the study may have access to information not available to us that could make a difference in this interpretation. We suggest that you obtain the original interpretation from the site where the study was performed. Finalized by Kobi Musa MD on 01/27/2025 3:53 PM MR TRA radiologist overread Result Date: 01/27/2025 Outside Study: MRI OF THE CERVICAL SPINE WITHOUT CONTRAST CLINICAL HISTORY: Cervical pain. COMPARISON: None. TECHNIQUE: Multiplanar MRI of the cervical spine without contrast.. Initial study performed on 01/26/2025 at [facility] Second opinion was requested by Dr. Sharona Oliveros. FINDINGS: There is straightening of the lordotic curvature. There is no malalignment within the cervical spine. Thereis no loss of the vertebral body or disc space heights in the cervical spine. There are no bone marrow signal abnormalities. The craniocervical junction is within normal limits. There is an empty sella turcica. There are no convincing signal abnormalities of the cervical cord. Disc space levels: C2-C3: The disc is unremarkable. C3-C4: The disc is unremarkable. C4-C5: The disc is unremarkable. C5-C6: The disc is unremarkable. C6-C7: The disc is unremarkable. C7-T1: The disc is unremarkable. IMPRESSION: 1. Unremarkable MRI of the cervical spine without contrast, as detailed above. 2. Incidentalvisualization of an empty sella turc[place]. PLEASE NOTE: Our interpretation of studies performed at [facility] is limited by factors including the absence of technical specifics of the image, undisclosed clinical information and the unavailability of the original interpretation. Specialists at the institution that performed the study may have access to information not available to us that could make a difference in this interpretation. We suggest that you obtain the original interpretation from the site where the study was performed. Finalized by Kobi Musa MD on01/27/2025 3:50 PM MR TRA radiologist overread Result Date: 01/27/2025 Outside Study: 6 series from a lumbar spine without contrast from [facility] dated 01/15/2025were submitted for second opinion. CLINICAL HISTORY: Neck pain. Degenerative change COMPARISON: 06/10/2021 MR from [facility] TECHNIQUE: MR lumbar spine without contrast. Initial study performed on 01/15/2025 Second opinion was requested by Dr. Oliveros FINDINGS: MR of the lumbar spine without contrast with the above history demonstrates lumpy contour of the kidneys, especially the left kidney. The other paravertebral structures appear unremarkable. Degenerative bulge of the T11-T12 disc may be associated with small posterior annular tear and bulges into the anterior subarachnoid space withouthigh-grade spinal stenosis. The T12-L1, L1-2, and L2-3 levels are unremarkable without disc herniation, significant spinal stenosis or foraminal stenosis. At L3-4 there are mild degenerative changes within the disc which bulges posteriorly to result in mild to moderate narrowing of the thecal sac. T he disc bulge extends into the foramina without significant foraminal stenosis. At L4-5 there are degenerative changes within the disc with small central disc protrusion and posterior annular tear. This results in mild to moderate impingement upon the thecal sac but no significant foraminal stenosis. At L5-S1 there is a small posterior annular tear within the bulging disc without significant compression of the thecal sac or foraminal stenosis. IMPRESSION: L4- 5 central disc protrusion or small herniation with annular tear indents the anterior thecal sac and results in mild to moderate spinal stenosis. There is no foraminal stenosis at this level. Small annular tears also noted at L5-S1 disc a nd possibly T11-12 disc. PLEASE NOTE: Our interpretation of studies performed at an outside institution is limited by factors including the absence of technical specifics of the image, undisclosed clinical information and the unavailability of the original interpretation. Specialists at the institution that performed the study may have access to information not available to us that could make a difference in this interpretation. We suggest that you obtain the original interpretation from the site where the study was performed. Finalized by Jace Gaspar MD on 01/27/2025 3:50 PM Cardiac Testing: If an ECG was performed in the ED, I have reviewed it. If an ECG was completed in the observation unit, I have reviewed it. Last ECG: No results found. Last Echo: No results found. Last Stress: No results found. Chest Pain Only: The ASCVD Risk score (Pippa DK, et al., 2019) failed to calculate for the following reasons: The 2019 ASCVD risk score is only valid for ages 40 to 79 MEDICAL DECISION MAKING: Chronic illnesses impacting care were reviewed and pertinent problems are noted below. Social determinants noted to be impacting care were reviewed as part of social history above. Pertinent issues discussed during multidisciplinary rounds. ED notes and workup reviewed. The workup performed in the emergency department and observation unit was reviewed and independently interpreted by myself including all relevant labs, imaging, and EKGs. See below for diagnostic tests, medications, and treatments considered. The case was discussed with the following building consultant teams and my interactive discussion with them is documented in the plan as noted below. Consulting Providers Not on file The patient will undergo serial re-evaluations and if the patient fails observation care and is expected to stay > 2 midnights, will pursue inpatient stay. PROCEDURE: Procedures ASSESSMENT: Headache with visual changes Possible IIH The patient is being placed in ED Observation on the following pathway(s): headache This is to prevent progression to / rule out the following acute illness(es) that pose threat to bodily function: status migrainosus PLAN: MRI brain MRV head Migraine Cocktail UTI treatment, patient received bactrim in ER, will continue. Neurology recommendations. Code Status Information Code Status Full Code [facility]10-02-2025 History and physical note* Mame Schmidt MD - 01/28/2025 9:15 AM EDT Images from the original note were not included. ED OBSERVATION HISTORY AND PHYSICAL Primary Care Physician: LOUISE LEMOS MD [phone] Admitting Physician: Mame Schmidt MD ED Date: 01/27/2025 1355 Obs date: 01/27/2025 1906 Chief Complaint Patient presents with Loss of Vision Neck Pain Difficulty Urinating Numbness Evaluation of Abnormal Diagnostic Test Principal Problem: Migraine HISTORY OF PRESENT ILLNESS: 24 year old female presents with multiple complaints including loss of vision, neck pain, difficulty urinating, and numbness. She also had recent MRIs performed at an outside facility. Currently, on evaluation in the observation unit, patient describes that all of her symptoms have resolved. Motheris also at bedside and is providing history. Patient is aware of the UTI per results and indicates she has had frequent UTIs in the past. Neurology was consulted and evaluated the patient. PAST MEDICAL HISTORY: Past Medical History: Diagnosis Date Chronic kidney disease Depression Headache Low back pain Lumbar disc disorder Visual impairment Last Menstrual Period No LMP recorded. PAST SURGICAL HISTORY: Past Surgical History: Procedure Laterality Date CHOLECYSTECTOMY FOOT SURGERY KNEE SURGERY TONSILLECTOMY TUBAL LIGATION FAMILY HISTORY: Family History Problem Relation Age of Onset Diabetes Paternal Grandfather Heart disease Paternal Grandfather Parkinsonism Paternal Grandfather SOCIAL HISTORY: Social History Socioeconomic History Marital status: Single Tobacco Use Smoking status: Never Smokeless tobacco: Never Substance and Sexual Activity Alcohol use: Never Drug use: Yes Types: Marijuana Sexual activity: Defer Social Drivers of Health Food Insecurity: No Food Insecurity (01/27/2025) Hunger Screening Food Insecurity - Worry: Never True Food Insecurity - Inability: Never True Received from [facility] Safety & Environment Travel Screening Question Response Have you been in contact with someone who was sick? No / Unsure Do you have any of the following new or worsening symptoms? Fatigue;Joint pain;Muscle pain;Severe headache;Weakness Have you traveled internationally or domestically in the last month? No Travel History Travel since 12/29/24 No documented travel since 12/29/24 ALLERGIES: Allergies Allergen Reactions [id number] Other (See Comments) red eyes Topiramate Swelling Eye drops; eyes swollen and red HOME MEDICATIONS: Medications Prior to Admission Medication Sig Dispense Refill Last Dose/Taking cholecalciferol, vitamin D3, 2,000 units capsule TAKE 1 CAPSULE BY MOUTH EVERY DAY FOR 90 DAYS hydrOXYzine (ATARAX) 25 mg tablet Take 1 tablet (25 mg total) by mouth. ibuprofen (MOTRIN) 800 mg tablet Take 1 tablet (800 mg total) by mouth every 6 (six) hours. oxyCODONE (OxyCONTIN) 10 mg 12 hr tablet Take 1 tablet (10 mg total) by mouth every 12 (twelve) hours. Max Daily Amount: 20 mg oxyCODONE-acetaminophen (PERCOCET) 5-325 mg per tablet TAKE 1 TABLET NEEDED BY MOUTH EVERY 6 [id number] VIENVA 0.1-20 mg-mcg per tablet TAKE 1 TABLET BY MOUTH EVERY DAY FOR 28 DAYS IMMUNIZATIONS: There is no immunization history on file for this patient. REVIEW OF SYSTEMS: Review of Systems Constitutional: Negative for fever, diaphoresis, activity change and appetite change. HENT: Positive for vision change. Negative for congestion and sore throat. Eyes: Positive for visual disturbance. Negative for pain and discharge. Respiratory: Negative for chest tightness and shortness of breath. Cardiovascular: Negative for chest pain and chest discomfort. Gastrointestinal: Positive for constipation. Negative for nausea, vomiting, abdominal pain and diarrhea. Genitourinary: Positive for difficulty urinating. Negative for flank pain. Musculoskeletal: Positive for neck pain and neck stiffness. Negative for back pain. Skin: Negative for pallor and rash. Neurological: Positive for numbness and headaches. Negative for dizziness, syncope and weakness. Psychiatric/Behavioral: Negative for agitation, behavioral problems and confusion. All other systems reviewed and are negative. PHYSICAL EXAM: Vitals: 01/28/25 0659 BP: 137/73 Pulse: 83 Resp: 16 Temp: 36.6 C (97.9 F) SpO2: 96% O2 Device: None (Room air) Physical Exam Constitutional She is oriented to person, place, and time. She appears well- developed and well-nourished. No distress. Nursing note and vitals reviewed. HENT Head Normocephalic and atraumatic. Ears Right Ear: External ear normal. Left Ear: External ear normal. Eyes: Conjunctivae and EOM are normal. Right eye exhibits no discharge. Left eye exhibits no discharge. Neck Normal range of motion. Neck supple. Cardiovascular: Normal rate and regular rhythm. No murmur heard. Heart Sounds: normal heart sounds. Pulmonary/Chest: Effort normal and breath sounds normal. She has no wheezes. No respiratory distress. Abdominal: She exhibits no distension. Soft. There is no abdominal tenderness. There is no rebound and no guarding. Musculoskeletal: General: Normal range of motion. Cervical back: Normal range of motion and neck supple. Neurological She is alert and oriented to person, place, and time. Skin: Skin is warm and dry. No rash noted. Psychiatric: She has a normal mood and affect. Her behavior is normal. Judgment and thought content normal. RECENT RESULTS: Recent Results (from the past 24 hours) [place] draw Collection Time: 01/27/25 2:28 PM Narrative The following orders were created for panel order [place] draw. Procedure Abnormality Status --------- ------ Light Blue Top[[id number]] Final result Please view results for these tests on the individual orders. Comprehensive metabolic panel Collection Time: 01/27/25 2:28 PM Result Value Ref Range SODIUM 138 134 - 146 mmol/L POTASSIUM 4.7 3.5 - 5.0 mmol/L CHLORIDE 106 98 - 109 mmol/L CARBON DIOXIDE 27 22 - 32 mmol/L ANION GAP 5 5 - 15 mmol/L BLOOD UREA NITROGEN 11 5 - 23 mg/dL CREATININE 0.72 0.40 - 1.00 mg/dL GLUCOSE 90 65 - 99 mg/dL CALCIUM 9.5 8.5 - 10.5 mg/dL TOTAL PROTEIN 8.2 (H) 6.0 - 8.0 g/dL ALBUMIN 4.7 3.2 - 5.3 g/dL ALKALINE PHOSPHATASE 59 39 - 130 U/L AST 35 <=41 U/L ALT 18 <=31 U/L BILIRUBIN,TOTAL 0.6 0.3 - 1.2 mg/dL EGFR Non-Race Dependent >90 >=60 ml/min/1.73sq.m Troponin I, High Sensitivity Collection Time: 01/27/25 2:28 PM Narrative The following orders were created for panel order Troponin I, High Sensitivity. Procedure Abnormality Status --------- ------ Troponin I, High Sensiti...[[id number]] Normal Final result Troponin I, High Sensiti...[[id number]] Normal Final result Please view results for these tests on the individual orders. Light Blue Top Collection Time: 01/27/25 2:28 PM Result Value Ref Range Extra Tube Auto Resulted Troponin I, High Sensitivity 0 Hour Collection Time: 01/27/25 2:28 PM Result Value Ref Range TROPONIN I, HIGH SENSITIVITY <2 <16 ng/L CBC auto differential Collection Time: 01/27/25 2:29 PM Result Value Ref Range WBC 12.0 (H) 4 - 11 x10E9/L RBC Count 4.81 3.8 - 5.2 X10E12/L Hemoglobin 13.2 11.7 - 15.5 g/dL Hematocrit 39.2 35 - 47 % MCV 81 80 - 100 fL MCH 27.4 27 - 34 pg MCHC 33.7 32 - 36 g/dL RDW 16.6 (H) 11.5 - 15 % Platelet Count 378 150 - 450 X10E9/L MPV 8.3 7 - 12 fL Neutrophils % 77.5 % Lymphocytes % 14.9 % Monocytes % 6.3 % Eosinophils % 0.7 % Basophils % 0.6 % Neutrophils Absolute (A) 9.3 (H) 1.5 - 6.6 10*3/uL Lymphocytes Absolute 1.8 1.0 - 3.5 10*3/uL Monocytes Absolute 0.8 0.0 - 0.9 10*3/uL Eosinophils Absolute 0.1 0.0 - 0.4 10*3/uL Basophils Absolute 0.1 0.0 - 0.2 10*3/uL Differential Type AUTOMATED DIFFERENTIAL Troponin I, High Sensitivity 1 Hour Collection Time: 01/27/25 3:27 PM Result Value Ref Range TROPONIN I, HIGH SENSITIVITY <2 <16 ng/L POCT Nursing Urine Macroscopic UA Collection Time: 01/27/25 6:29 PM Result Value Ref Range POC Urine Specific [place] 1.020 1.010, 1.015, 1.020, 1.025 POC Urine Leukocyte Esterase Large (A) Negative POC Urine Nitrite Positive (A) Negative POC Urine pH 7.0 5.0, 6.0, 6.5, 7.0, 7.5, 8.0, 8.5, 5.5 POC Urine Protein >=300 mg/dL (A) Negative POC Urine Glucose Negative Negative POC Urine Ketones 15 mg/dL (A) Negative POC Urine Urobilinogen 0.2 E.U./dL POC Urine Bilirubin Negative Negative POC Urine Blood/HGB Moderate (A) Negative POCT , urine Collection Time: 01/27/25 6:30 PM Result Value Ref Range POC Urine Negative Negative, Indeterminate Er Extra Urine Collection Time: 01/27/25 6:54 PM Specimen: Urine Result Value Ref Range Extra Tube Auto Resulted CBC auto differential Collection Time: 01/28/25 5:46 AM Result Value Ref Range WBC 10.6 4 - 11 x10E9/L RBC Count 4.60 3.8 - 5.2 X10E12/L Hemoglobin 12.6 11.7 - 15.5 g/dL Hematocrit 37.1 35 - 47 % MCV 81 80 - 100 fL MCH 27.3 27 - 34 pg MCHC 33.9 32 - 36 g/dL RDW 16.3 (H) 11.5 - 15 % Platelet Count 317 150 - 450 X10E9/L MPV 8.3 7 - 12 fL Neutrophils % 73.4 % Lymphocytes % 17.7 % Monocytes % 7.3 % Eosinophils % 1.0 % Basophils % 0.6 % Neutrophils Absolute (A) 7.8 (H) 1.5 - 6.6 10*3/uL Lymphocytes Absolute 1.9 1.0 - 3.5 10*3/uL Monocytes Absolute 0.8 0.0 - 0.9 10*3/uL Eosinophils Absolute 0.1 0.0 - 0.4 10*3/uL Basophils Absolute 0.1 0.0 - 0.2 10*3/uL Differential Type AUTOMATED DIFFERENTIAL Comprehensive metabolic panel Collection Time: 01/28/25 5:46 AM Result Value Ref Range SODIUM 141 134 - 146 mmol/L POTASSIUM 4.2 3.5 - 5.0 mmol/L CHLORIDE 109 98 - 109 mmol/L CARBON DIOXIDE 23 22 - 32 mmol/L ANION GAP 9 5 - 15 mmol/L BLOOD UREA NITROGEN 9 5 - 23 mg/dL CREATININE 0.70 0.40 - 1.00 mg/dL GLUCOSE 99 65 - 99 mg/dL CALCIUM 9.0 8.5 - 10.5 mg/dL TOTAL PROTEIN 7.1 6.0 - 8.0 g/dL ALBUMIN 4.3 3.2 - 5.3 g/dL ALKALINE PHOSPHATASE 58 39 - 130 U/L AST 21 <=41 U/L ALT 14 <=31 U/L BILIRUBIN,TOTAL 0.6 0.3 - 1.2 mg/dL EGFR Non-Race Dependent >90 >=60 ml/min/1.73sq.m Microbiology Results No results found for the last 168 hours. MRV head with and without contrast Result Date: 01/28/2025 MR MRV HEAD W WO CONT CLINICAL INDICATION:headache COMPARISON: None TECHNIQUE: Routine noncontrast,[id number], MR venogram was performed. Maximum intensity projection volumetric reformatted images were generated. Postcontrast 3-D MPRAGE. FINDINGS: Narrowed distal transverse sinuses bilaterally. Patent superior sagittal sinus, transverse sinuses, sigmoid sinuses and proximal internal jugular veins. Symmetric cortical venous enhancement. Expanded sella with flat pituitary. CSF engorged opticnerve sheaths IMPRESSION: Venous morphologic and other anatomic features suggestive of intracranialhypertension. Please correlate clinically. Patent dural venous sinuses. Finalized by Jonathan Pang MD on 01/28/2025 5:48 AM MR brain with and without contrast Result Date: 01/28/2025 STUDY: MRI brain with without contrast . CLINICAL HISTORY: headache COMPARISON: None. Procedure: Multiplanar, multisequence imaging performed through the brain, including pre and post contrast T1 weighted images using IV contrast. Findings: Moderate brain atrophy There is an empty sella which can be physiologic] can be seen with idiopathic intracranial hypertension and findings best assessed in co mbination with other clinical data There are no intracranial masses, mass- effect, extra-axial fluidcollection, or hydrocephalus. Sensitivity for acute hemorrhage limited on MRI, but grossly no acutehemorrhage identified. Midline sagittal structures are unremarkable including pituitary fossa, infundibulum, optic chiasm, corpus callosum, brainstem, fourth ventricle, cerebellum, and cranio-cervical junction. Flow voids documented in [place] and dural venous sinuses. No pathologic contrast enhancement. Diffusion weighted images show no evidence for acute infarct. The deep white matter shows no acute changes. IMPRESSION: Moderate brain atrophy There is an empty sella which can be physiologic but can be seen with idiopathic intracranial hypertension and findings best assessed in combination with other clinical data * Finalized by Shaen Graves MD on 01/28/2025 5:34 AM X-ray foot left minimum 3 views Result Date: 01/27/2025 XR FOOT LT MIN 3 VWS Clinical Information: previous bone graft, c/f osteomyelitis. Please compare to prior study Comparison: None. IMPRESSION: * No acute fracture. Deformity of the first proximal phalanx likely related to remote trauma. Postsurgical changes in the ankle and midfoot with fusion. Mild eccentric sclerosis in the calcaneus, nonspecific. Soft tissue swelling. Finalized by Luis Carlos Atkins MD on 01/27/2025 4:43 PM MR TRA radiologist overread Result Date: 01/27/2025 Outside Study: MRI OF THE THORACIC SPINE WITHOUT CONTRAST CLINICAL HISTORY: Neck and back pain COMPARISON: None. TECHNIQUE: Multiplanar MRI of the thoracic spine without contrast.. Initial study performed on 01/15/2025 at [facility]. Second opinion was requested by Dr. Sharona Oliveros. FINDINGS: There is no malalignment of the thoracic spine. There is no loss of the vertebral body or disc space heights. There are small nonaggressive degenerative Schmorl's nodes within the mid to lower thoracicspine. There are no discrete worrisome bone marrow signal abnormalities. There is no evidence of bone marrow edema. There are no convincing signal abnormalities of the thoracic cord. Disc space levels: At T6-T7, there is a tiny central disc protrusion barely indenting thecal sac. At T8-T9, there reinaldo very tiny right paracentral disc protrusion barely flattening the thecal sac. At T11-T12, there is a minimal disc bulge flattening the thecal sac. There is no evidence of canal stenosis, neural foraminal stenosis, or focal nerve impingement within the thoracic spine. IMPRESSION: 1. 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 There is no evidence of canal stenosis, neural foraminal stenosis, or focal nerve impingement. PLEASE NOTE: Our interpretation of studies performed at an outside institution is limited by factors including the absence of technical specifics o f the image, undisclosed clinical information and the unavailability of the original interpretation. Specialists at the institution that performed the study may have access to information not available to us that could make a difference in this interpretation. We suggest that you obtain the original interpretation from the site where the study was performed. Finalized by Kobi Musa MD on 01/27/2025 3:53 PM MR TRA radiologist overread Result Date: 01/27/2025 Outside Study: MRI OF THE CERVICAL SPINE WITHOUT CONTRAST CLINICAL HISTORY: Cervical pain. COMPARISON: None. TECHNIQUE: Multiplanar MRI of the cervical spine without contrast.. Initial study performed on 01/26/2025 at [facility] Second opinion was requested by Dr. Sharona Oliveros. FINDINGS: There is straightening of the lordotic curvature. There is no malalignment within the cervical spine. Thereis no loss of the vertebral body or disc space heights in the cervical spine. There are no bone marrow signal abnormalities. The craniocervical junction is within normal limits. There is an empty sella turcica. There are no convincing signal abnormalities of the cervical cord. Disc space levels: C2-C3: The disc is unremarkable. C3-C4: The disc is unremarkable. C4-C5: The disc is unremarkable. C5-C6: The disc is unremarkable. C6-C7: The disc is unremarkable. C7-T1: The disc is unremarkable. IMPRESSION: 1. Unremarkable MRI of the cervical spine without contrast, as detailed above. 2. Incidentalvisualization of an empty sella turcica. PLEASE NOTE: Our interpretation of studies performed at [facility] is limited by factors including the absence of technical specifics of the image, undisclosed clinical information and the unavailability of the original interpretation. Specialists at the institution that performed the study may have access to information not available to us that could make a difference in this interpretation. We suggest that you obtain the original interpretation from the site where the study was performed. Finalized by Kobi Musa MD on01/27/2025 3:50 PM MR TRA radiologist overread Result Date: 01/27/2025 Outside Study: 6 series from a lumbar spine without contrast from [facility] dated 01/15/2025were submitted for second opinion. CLINICAL HISTORY: Neck pain. Degenerative change COMPARISON: 06/10/2021 MR from [facility] TECHNIQUE: MR lumbar spine without contrast. Initial study performed on 01/15/2025 Second opinion was requested by Dr. Oliveros FINDINGS: MR of the lumbar spine without contrast with the above history demonstrates lumpy contour of the kidneys, especially the left kidney. The other paravertebral structures appear unremarkable. Degenerative bulge of the T11-T12 disc may be associated with small posterior annular tear and bulges into the anterior subarachnoid space withouthigh-grade spinal stenosis. The T12-L1, L1-2, and L2-3 levels are unremarkable without disc herniation, significant spinal stenosis or foraminal stenosis. At L3-4 there are mild degenerative changes within the disc which bulges posteriorly to result in mild to moderate narrowing of the thecal sac. T he disc bulge extends into the foramina without significant foraminal stenosis. At L4-5 there are degenerative changes within the disc with small central disc protrusion and posterior annular tear. This results in mild to moderate impingement upon the thecal sac but no significant foraminal stenosis. At L5-S1 there is a small posterior annular tear within the bulging disc without significant compression of the thecal sac or foraminal stenosis. IMPRESSION: L4- 5 central disc protrusion or small herniation with annular tear indents the anterior thecal sac and results in mild to moderate spinal stenosis. There is no foraminal stenosis at this level. Small annular tears also noted at L5-S1 disc a nd possibly T11-12 disc. PLEASE NOTE: Our interpretation of studies performed at an outside institution is limited by factors including the absence of technical specifics of the image, undisclosed clinical information and the unavailability of the original interpretation. Specialists at the institution that performed the study may have access to information not available to us that could make a difference in this interpretation. We suggest that you obtain the original interpretation from the site where the study was performed. Finalized by Jace Gaspar MD on 01/27/2025 3:50 PM Cardiac Testing: If an ECG was performed in the ED, I have reviewed it. If an ECG was completed in the observation unit, I have reviewed it. Last ECG: No results found. Last Echo: No results found. Last Stress: No results found. Chest Pain Only: The ASCVD Risk score (Pippa DK, et al., 2019) failed to calculate for the following reasons: The 2019 ASCVD risk score is only valid for ages 40 to 79 MEDICAL DECISION MAKING: Chronic illnesses impacting care were reviewed and pertinent problems are noted below. Social determinants noted to be impacting care were reviewed as part of social history above. Pertinent issues discussed during multidisciplinary rounds. ED notes and workup reviewed. The workup performed in the emergency department and observation unit was reviewed and independently interpreted by myself including all relevant labs, imaging, and EKGs. See below for diagnostic tests, medications, and treatments considered. The case was discussed with the following building consultant teams and my interactive discussion with them is documented in the plan as noted below. Consulting Providers Not on file The patient will undergo serial re-evaluations and if the patient fails observation care and is expected to stay > 2 midnights, will pursue inpatient stay. PROCEDURE: Procedures ASSESSMENT: Headache with visual changes Possible IIH The patient is being placed in ED Observation on the following pathway(s): headache This is to prevent progression to / rule out the following acute illness(es) that pose threat to bodily function: status migrainosus PLAN: MRI brain MRV head Migraine Cocktail UTI treatment, patient received bactrim in ER, will continue. Neurology recommendations. Code Status Information Code Status Full Code documented in [facility] Emergency department Note* Suzanne Claudio RN - 01/27/2025 9:08 PM EDT Bed: 45 Expected date: Expected time: Means of arrival: Comments: 36 [facility] [id number] Emergency department Note* Suzanne Claudio RN - 01/27/2025 9:08 PM EDT Bed: 45 Expected date: Expected time: Means of arrival: Comments: 36 * Sharona Oliveros MD - 01/27/2025 2:56 PM EDT Images from the original note were not included. [facility] - EMERGENCY DEPARTMENT Pt Name: Blanka Farias Birthdate: 2000 Chief Complaint: Chief Complaint Patient presents with Loss of Vision Neck Pain Difficulty Urinating Numbness Evaluation of Abnormal Diagnostic Test History of Present Illness: Blanka Farias is a 24 y.o. 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 She presents with 2 weeks of progressive frontal and posterior headache and blurry vision. Patient states symptoms worsen when she lies flat. She also complains of lower abdominal discomfort and constipation, with last bowel movement 2 days ago. She denies chest pain, shortness of breath, abdominal pain, nausea, vomiting, diarrhea, fever, and chills. Past Medical History: Past Medical History: Diagnosis Date Chronic kidney disease Depression Headache Low back pain Lumbar disc disorder Visual impairment Past Surgical History: Past Surgical History: Procedure Laterality Date CHOLECYSTECTOMY FOOT SURGERY KNEE SURGERY TONSILLECTOMY TUBAL LIGATION Family History: Family History Problem Relation Age of Onset Diabetes Paternal Grandfather Heart disease Paternal Grandfather Parkinsonism Paternal Grandfather Social History: Social History Socioeconomic History Marital status: Single Tobacco Use Smoking status: Never Smokeless tobacco: Never Substance and Sexual Activity Alcohol use: Never Drug use: Yes Types: Marijuana Sexual activity: Defer Social Drivers of Health Food Insecurity: No Food Insecurity (01/27/2025) Hunger Screening Food Insecurity - Worry: Never True Food Insecurity - Inability: Never True Received from [facility] [place] [facility] Review of Systems: Review of Systems Physical Exam: ED Triage Vitals [01/27/25 1333] Temp Heart Rate Resp BP SpO2 36.5 C (97.7 F) 102 19 144/90 99 % Temp Source Heart Rate Source Patient Position BP Location FiO2 (%) Oral Pulse Ox -- Right arm -- Vitals: 01/27/25 1333 01/27/25 1519 BP: 144/90 (!) 133/93 Temp: 36.5 C (97.7 F) TempSrc: Oral Pulse: 102 75 Resp: 19 16 SpO2: 99% 97% MAP (mmHg): 102 105 Height: 172.7 cm (5' 8 ) Weight: 90.7 kg (200 lb) Physical Exam Constitutional: Appearance: Normal appearance. HENT: Nose: Nose normal. Mouth/Throat: Mouth: Mucous membranes are moist. Eyes: Extraocular Movements: Extraocular movements intact. Pupils: Pupils are equal, round, and reactive to light. Neck: Comments: Mild tenderness to palpation of the trapezius muscles bilaterally with some palpable spasm. Cardiovascular: Rate and Rhythm: Normal rate and regular rhythm. Pulses: Normal pulses. Heart sounds: Normal heart sounds. Pulmonary: Effort: Pulmonary effort is normal. No respiratory distress. Breath sounds: Normal breath sounds. No wheezing, rhonchi or rales. Abdominal: General: Abdomen is flat. Palpations: Abdomen is soft. Tenderness: There is right CVA tenderness and left CVA tenderness. There is no guarding or rebound. Comments: Mild suprapubic tenderness. Musculoskeletal: General: Normal range of motion. Cervical back: Normal range of motion and neck supple. Skin: General: Skin is warm and dry. Capillary Refill: Capillary refill takes less than 2 seconds. Coloration: Skin is not jaundiced or pale. Findings: No bruising, erythema, lesion or rash. Neurological: General: No focal deficit present. Mental Status: She is alert and oriented to person, place, and time. Cranial Nerves: No cranial nerve deficit. Sensory: No sensory deficit. Motor: No weakness. Coordination: Coordination normal. Procedure: Procedures Re-evaluation: Ubaldo Rhoades (scribe), documented on behalf and in the presence of Dr. Sal Ordoñez. Medical Decision Making Blanka Farias is a 24 y.o. female presents with 2 weeks of progressive frontal and posterior headache that radiates to the neck associated with blurry vision. 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 Upon exam, patient is anxious but sitting upright in bed. She is afebrile with stable vital signs. Cardiopulmonary auscultation is normal. She has diffuse tenderness of the trapezius muscles with some spasm. Neurological exam reveals no deficits. She moves all extremities with full strength. There do not appear to be any visual field deficits. Pupils are equal, round, and reactive to light and accommodation. Extraocular movements intact. No nuchal rigidity. She is a chronic deformity of the left ankle due to previous surgeries and an accompanying scar on the dorsal foot. Imaging read of outpatient studies reveals empty sella, as well as other findings suggestive of intracranial hypertension. I had our own radiologist's over-read the outpatient studies as well, notingno acute findings, consistent with previous read. She has degenerative changes of the lumbar and thoracic spine, demonstrated multiple times in the past. Cervical discs, disc spaces, and foraminal space all preserved. Being that Dr. Burciaga had ordered the outpatient imaging, I consulted Neurosurgery to discuss patient's case. Given patient's normal imaging, their service was uninterested in discussing the case further. Neurology was also consulted. Amount and/or Complexity of Data Reviewed Labs: ordered. Radiology: ordered. ECG/medicine tests: ordered. Risk Prescription drug management. ED Course: Clinical Impressions as of 01/28/25 1338 Migraine Blurred vision Acute cystitis without hematuria . ED Disposition None Teaching Visit 15:27 EDT IUbaldo), scribed for and in the presence of: Dr. Gamboa who performed the above service. I, Dr. Gamboa saw the patient, was physically present during the critical and manjarrez portions of the service and was directly involved in the management and treatment plan of the patient. I reviewedthe resident's documentation. Below are additional notes and findings. Additional Notes/Findings: Blanka Farias is a 24 y.o. Female patient presenting to the ED for chief complaint of loss of vision. Patient reports pain worsened over the last 3 weeks or so. She confirms numbness and tingling ongoing for 3 weeks as well. She reports while having MRI done on her lumbar and thoracic she experinced extreme tightness in her head. Patient denies abdominal pain, nausea, and emesis. Mom reports foot surgery done in 2019 and 2023, she confirms surgeon cutting her nerves due to the severity of pain on the left, stating the bone was . Exam findings as follows: Constitutional: Awake and alert HENT: Head normocephalic and atraumatic Eyes: horizontal nystagmus Cardiovascular: Heart rate regular Pulmonary: Easy work of breathing, speaking full sentences Abdominal: Flat and non-distended Skin: Warm and dry Musculoskeletal: Moving all extremities spontaneously; pain to bilateral neck and old surgical scarto the left ankle with fusion Neurological: no focal deficits. Please note that portions of this note were completed with a voice recognition program. Efforts were made to edit the dictations but occasionally words are mis-transcribed. Ubaldo Vasquez 01/27/25 1457 Sharona Oliveros MD Resident 01/27/25 1528 Ubaldo Vasquez 01/27/25 1538 Sharona Oliveros MD Resident 01/27/25 1850 Sharona Oliveros MD Resident 01/27/25 1908 Sharona Oliveros MD Resident 01/27/25 2237 Cosigned by Sal Ordoñez MD at 01/28/2025 6:05 PM EDT * Mercedes Yates RN - 01/27/2025 1:49 PM EDT Pt to ED from home with mom for concerns of progressive vision loss, numbness and tingling in BUE and BLE, severe PAUL, neck pain/stiffness, difficulty urinating, and constipation that has been progressing over the last 2wks. Pt PCP sent pt in to [facility] for consult with neuro surg. Pt has extensive medical history, see media upload for brief summary provided by pt mother. Pt has been to [facility] and [facility] specialists over the years. [facility] Emergency department Note* Sharona Oliveros MD - 01/27/2025 2:56 PM EDT Images from the original note were not included. [facility] - EMERGENCY DEPARTMENT Pt Name: Blanka Farias Birthdate: 2000 Chief Complaint: Chief Complaint Patient presents with Loss of Vision Neck Pain Difficulty Urinating Numbness Evaluation of Abnormal Diagnostic Test History of Present Illness: Blanka Farias is a 24 y.o. 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 She presents with 2 weeks of progressive frontal and posterior headache and blurry vision. Patient states symptoms worsen when she lies flat. She also complains of lower abdominal discomfort and constipation, with last bowel movement 2 days ago. She denies chest pain, shortness of breath, abdominal pain, nausea, vomiting, diarrhea, fever, and chills. Past Medical History: Past Medical History: Diagnosis Date Chronic kidney disease Depression Headache Low back pain Lumbar disc disorder Visual impairment Past Surgical History: Past Surgical History: Procedure Laterality Date CHOLECYSTECTOMY FOOT SURGERY KNEE SURGERY TONSILLECTOMY TUBAL LIGATION Family History: Family History Problem Relation Age of Onset Diabetes Paternal Grandfather Heart disease Paternal Grandfather Parkinsonism Paternal Grandfather Social History: Social History Socioeconomic History Marital status: Single Tobacco Use Smoking status: Never Smokeless tobacco: Never Substance and Sexual Activity Alcohol use: Never Drug use: Yes Types: Marijuana Sexual activity: Defer Social Drivers of Health Food Insecurity: No Food Insecurity (01/27/2025) Hunger Screening Food Insecurity - Worry: Never True Food Insecurity - Inability: Never True Received from [facility] [place] [facility] Review of Systems: Review of Systems Physical Exam: ED Triage Vitals [01/27/25 1333] Temp Heart Rate Resp BP SpO2 36.5 C (97.7 F) 102 19 144/90 99 % Temp Source Heart Rate Source Patient Position BP Location FiO2 (%) Oral Pulse Ox -- Right arm -- Vitals: 01/27/25 1333 01/27/25 1519 BP: 144/90 (!) 133/93 Temp: 36.5 C (97.7 F) TempSrc: Oral Pulse: 102 75 Resp: 19 16 SpO2: 99% 97% MAP (mmHg): 102 105 Height: 172.7 cm (5' 8 ) Weight: 90.7 kg (200 lb) Physical Exam Constitutional: Appearance: Normal appearance. HENT: Nose: Nose normal. Mouth/Throat: Mouth: Mucous membranes are moist. Eyes: Extraocular Movements: Extraocular movements intact. Pupils: Pupils are equal, round, and reactive to light. Neck: Comments: Mild tenderness to palpation of the trapezius muscles bilaterally with some palpable spasm. Cardiovascular: Rate and Rhythm: Normal rate and regular rhythm. Pulses: Normal pulses. Heart sounds: Normal heart sounds. Pulmonary: Effort: Pulmonary effort is normal. No respiratory distress. Breath sounds: Normal breath sounds. No wheezing, rhonchi or rales. Abdominal: General: Abdomen is flat. Palpations: Abdomen is soft. Tenderness: There is right CVA tenderness and left CVA tenderness. There is no guarding or rebound. Comments: Mild suprapubic tenderness. Musculoskeletal: General: Normal range of motion. Cervical back: Normal range of motion and neck supple. Skin: General: Skin is warm and dry. Capillary Refill: Capillary refill takes less than 2 seconds. Coloration: Skin is not jaundiced or pale. Findings: No bruising, erythema, lesion or rash. Neurological: General: No focal deficit present. Mental Status: She is alert and oriented to person, place, and time. Cranial Nerves: No cranial nerve deficit. Sensory: No sensory deficit. Motor: No weakness. Coordination: Coordination normal. Procedure: Procedures Re-evaluation: Ubaldo Rhoades (scribe), documented on behalf and in the presence of Dr. Sal Ordoñez. Medical Decision Making Blanka Farias is a 24 y.o. female presents with 2 weeks of progressive frontal and posterior headache that radiates to the neck associated with blurry vision. 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 Upon exam, patient is anxious but sitting upright in bed. She is afebrile with stable vital signs. Cardiopulmonary auscultation is normal. She has diffuse tenderness of the trapezius muscles with some spasm. Neurological exam reveals no deficits. She moves all extremities with full strength. There do not appear to be any visual field deficits. Pupils are equal, round, and reactive to light and accommodation. Extraocular movements intact. No nuchal rigidity. She is a chronic deformity of the left ankle due to previous surgeries and an accompanying scar on the dorsal foot. Imaging read of outpatient studies reveals empty sella, as well as other findings suggestive of intracranial hypertension. I had our own radiologist's over-read the outpatient studies as well, notingno acute findings, consistent with previous read. She has degenerative changes of the lumbar and thoracic spine, demonstrated multiple times in the past. Cervical discs, disc spaces, and foraminal space all preserved. Being that Dr. Burciaga had ordered the outpatient imaging, I consulted Neurosurgery to discuss patient's case. Given patient's normal imaging, their service was uninterested in discussing the case further. Neurology was also consulted. Amount and/or Complexity of Data Reviewed Labs: ordered. Radiology: ordered. ECG/medicine tests: ordered. Risk Prescription drug management. ED Course: Clinical Impressions as of 01/28/25 1338 Migraine Blurred vision Acute cystitis without hematuria . ED Disposition None Teaching Visit 15:27 EDT IUbaldo), scribed for and in the presence of: Dr. Gamboa who performed the above service. I, Dr. Gamboa saw the patient, was physically present during the critical and manjarrez portions of the service and was directly involved in the management and treatment plan of the patient. I reviewedthe resident's documentation. Below are additional notes and findings. Additional Notes/Findings: Blanka Farias is a 24 y.o. Female patient presenting to the ED for chief complaint of loss of vision. Patient reports pain worsened over the last 3 weeks or so. She confirms numbness and tingling ongoing for 3 weeks as well. She reports while having MRI done on her lumbar and thoracic she experinced extreme tightness in her head. Patient denies abdominal pain, nausea, and emesis. Mom reports foot surgery done in 2019 and 2023, she confirms surgeon cutting her nerves due to the severity of pain on the left, stating the bone was . Exam findings as follows: Constitutional: Awake and alert HENT: Head normocephalic and atraumatic Eyes: horizontal nystagmus Cardiovascular: Heart rate regular Pulmonary: Easy work of breathing, speaking full sentences Abdominal: Flat and non-distended Skin: Warm and dry Musculoskeletal: Moving all extremities spontaneously; pain to bilateral neck and old surgical scarto the left ankle with fusion Neurological: no focal deficits. Please note that portions of this note were completed with a voice recognition program. Efforts were made to edit the dictations but occasionally words are mis-transcribed. Ubaldo Vasquez 01/27/25 1457 Sharona Oliveros MD Resident 01/27/25 1528 Ubaldo Vasquez 01/27/25 1538 Sharona Oliveros MD Resident 01/27/25 1850 Sharona Oliveros MD Resident 01/27/25 1908 Sharona Oliveros MD Resident 01/27/25 2237 Cosigned by Sal Ordoñez MD at 01/28/2025 6:05 PM EDT [facility] Work Phone: [phone]) 707-262810-01-2025 Emergency department Triage note* Mercedes Yates RN - 01/27/2025 1:49 PM EDT Pt to ED from home with mom for concerns of progressive vision loss, numbness and tingling in BUE and BLE, severe PAUL, neck pain/stiffness, difficulty urinating, and constipation that has been progressing over the last 2wks. Pt PCP sent pt in to [facility] for consult with neuro surg. Pt has extensive medical history, see media upload for brief summary provided by pt mother. Pt has been to [facility] and [facility] specialists over the years. [facility] [id number] Miscellaneous Notes* Telephone Encounter - Suzanne Cody RN - 01/27/2025 9:12 AM EDT Call from patient's mom anxious for Cervical MRI results and plan. She reports an addended report comparing the films to one done in 2021 has been completed. She had to notify them one was done previously for comparison. She reports her daughters vision has worsened since being seen. Addendum apparently reads evidence of increased intracranial pressure. Will obtain reports and seek direction fromDr Arevalo. [facility] will fax report. * Telephone Encounter - Suzanne Cody RN - 01/27/2025 9:12 AM EDT Comparison report of Cervical MRI available in chart and films are loaded. Will have Dr Arevalo review and give direction on next steps. Mom is very anxious and feel Brain MRI needs done. documented in this encounterCherrington HospitalUnited [facility] of [facility] [place] [facility] [id number] Telephone encounter Note* Telephone Encounter - Suzanne Cody RN - 01/27/2025 9:12 AM EDT Call from patient's mom anxious for Cervical MRI results and plan. She reports an addended report comparing the films to one done in 2021 has been completed. She had to notify them one was done previously for comparison. She reports her daughters vision has worsened since being seen. Addendum apparently reads evidence of increased intracranial pressure. Will obtain reports and seek direction fromDr Arevalo. [facility] will fax report. [facility] Work Phone: 1(198) 516-117810-01-2025 Telephone encounter Note* Telephone Encounter - Suzanne Cody RN - 01/27/2025 9:12 AM EDT Comparison report of Cervical MRI available in chart and films are loaded. Will have Dr Arevalo review and give direction on next steps. Mom is very anxious and feel Brain MRI needs done. [facility] HospitalCloudVolumes [id number] History of Present illness Narrative* Carli Arevalo MD - 01/25/2025 10:50 AM EDT Images from the original note were not included. [facility] [address] [place] [address], [address] [place] [address] * CHART NOTE ? 01/25/2025 Patient: Blanka Farias 2000 [id number] Physician: Carli Arevalo MD, FAANS SUMMARY Widespread muscular pain secondary to possible Fibromyalgia. PLAN I will review her cervical MRI that is to be completed tomorrow and call her mother with the results. I will also refer her to a shoe shanker to investigate possible fibromyalgia. I have instructed the patient to contact my office if any new questions, concerns, or symptoms develop. HISTORY OF PRESENT ILLNESS Blanka Farias is a 24 y.o. female who presents to the clinic today with her mother as a new patient complaining of severe pain throughout her spine and bilateral numbness throughout her legs. Shewas previously seen in 2021 for low back and right radicular leg pain. The patient was born with a rare congenital cancer and was not expected to live longer than a year however she was given radioactive medication as an which secondarily has affected some of her growth and bone formation asan adult. She has previously preformed physical therapy, but had been stopped as movement causes her pain. She previously visit Dr. Schumacher who was not able to provide her with any help. Her primarilycare physician, Dr. Lemos, has placed her on Oxycodone for her pain. She has had 2 pain injections inher lower back without any improvement in her condition. She is scheduled to complete a cervical MRI tomorrow. HEALTH HISTORY Past Medical History Documented in chart and reviewed with the patient at this visit Family History Documented in chart and reviewed with the patient at this visit Social History Documented in chart and reviewed with the patient at this visit Surgeries/Hospitalizations Documented in chart and reviewed with the patient at this visit Current Medications Current Outpatient Medications on File Prior to Visit Medication Sig Dispense Refill nitrofurantoin, macrocrystal-monohydrate, (MACROBID) 100 mg capsule TAKE 1 CAPSULE BY MOUTH TWICE ADAY X 7 DAYS NON FORMULARY cbd 200 mg No current facility-administered medications on file prior to visit. Allergies No Known Allergies REVIEW OF SYSTEMS A complete and comprehensive 10-system review was completed. Pertinent positives and negatives are mentioned in the history of the present illness. PHYSICAL EXAMINATION GENERAL: Well developed, well nourished, in no acute distress. OPHTHALMOLOGIC: Pupils equal, round, reactive to light and accomodation, sclera non-icteric. Fundi were not examined. HEAD: Normocephalic, atraumatic. SKIN: Warm and dry, no suspicious lesions. EXTREMITIES: No clubbing, cyanosis, or edema. MUSCULOSKELETAL: There is no atrophy, no fasciculations. No pain with internal/external hip rotation. BACK: Her entire back is tender on palpation, ROM of the lumbar spine is intact. NEUROLOGIC: The patient is alert and oriented to person, place, and time. Speech and language function is normal. Memory seems to be intact. Concentration and alertness are appropriate. General fund of knowledge is within normal limits. Gait is steady. Posture is normal. Strength is 5/5 in the lower extremities, moving all extremities freely. Sensation is intact. Reflexes are 2+ and symmetrical to ankle and knee jerk. DIAGNOSTICS MRI of the lumbar spine completed on 01/15/25 demonstrates moderate lateral recess stenosis at L3-4 secondary to a disc bulge. Also shown is a central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 QtlsyfgfXlrrtji72/01/2025ReasonCommentsLoss of VisionNeck PainDifficulty UrinatingNumbnessEvaluation of Abnormal Diagnostic TestSpecialtyDiagnoses / ProceduresReferred By ContactReferred To Contact Diagnoses Migraine HTN (hypertension) Mame Schmidt MD [address] [place] [address] Phone: tel: fax: Referral IDStatusReasonStart DateExpiration DateVisits RequestedVisits [id number] INFORMATION SOURCE (unrecogn ized section and content) DATE CREATED AUTHOR 02/06/2020 [facility] DATE CREATED AUTHOR AUTHOR'S ORGANIZ ATION 06/14/2020 [facility] DATE CREATED AUTHOR AUTHOR'S ORGANIZ ATION 10/15/2020 [facility] DATE CREATED AUTHOR AUTHOR'S ORGANIZ ATION 03/10/2022 [facility] DATE CREATED AUTHOR AUTHOR'S ORGANIZ ATION 07/19/2022 [facility] DATE CREATED AUTHOR AUTHOR'S ORGANIZ ATION 2023 [facility] DATE CREATED AUTHOR AUTHOR'S ORGANIZ ATION 04/10/2024 [facility] DATE CREATED AUTHOR AUTHOR'S ORGANIZ ATION 08/25/2024 [facility] DATE CREATED AUTHOR AUTHOR'S ORGANIZ ATION 01/19/2025 [facility] DATE CREATED AUTHOR AUTHOR'S ORGANIZ ATION 02/03/2025 [facility] DATE CREATED AUTHOR AUTHOR'S ORGANIZ ATION 02/06/2025 [facility] DATE CREATED AUTHOR AUTHOR'S ORGANIZ ATION 02/06/2025 [facility] DATE CREATED AUTHOR AUTHOR'S ORGANIZ ATION 02/10/2025 [facility] DATE CREATED AUTHOR AUTHOR'S ORGANIZ ATION 02/27/2025 [facility] Ordered Prescriptions (unrec ognized section and content) PrescriptionSigDispensedRefillsStart DateEnd Date cyclobenzaprine (FLEXERIL) 10 MG tablet Take 1 tablet by mouth 3 times daily as needed for Muscle spasms 21 tablet /rescriptionSigDispensedRefillsStart DateEnd Date amoxicillin-clavulanate (AUGMENTIN) 875-125 MG per tablet Take 1 tablet by mouth 2 times daily for 7 days 14 tablet / Care Teams (unrecognized sec tion and content) Team MemberRelationshipSpecialtyStart DateEnd Date Louise Lemos MD [address] [place] [address] PCP - GeneralFamily Medicine06/16/21Team MemberRelationshipSpecialtyStart DateEnd Date Louise Lemos MD [address] [place] [address] PCP - GeneralFamily Eyshgkkt62/20/20Team MemberRelationshipSpecialtyStart Date End Date Louise Lemos MD [address] [place] [address] PCP - GeneralFamily Undxicip68/20/20Team MemberRelationshipSpecialtyStart Date End Date Louise Lemos MD [address] [place], [place] [id number] PCP - GeneralFamily Hzduqazh71/20/20Team MemberRelationshipSpecialtyStart Date End Date Louise Lemos MD [address] [place] [address] PCP - GeneralFamily Zmjgshwt19/20/20Team MemberRelationshipSpecialtyStart Date End Date Louise Lemos MD [address] [place] [address] PCP - GeneralFamily Nhabqgoz26/20/20Team MemberRelationshipSpecialtyStart Date End Date Louise Lemos MD [address] [place] [address] PCP - General06/27/09Team MemberRelationshipSpecialtyStart DateEnd Date Louise Lemos MD [address] [place] [address] PCP - General06/27/09Team MemberRelationshipSpecialtyStart [place] [address] [place] [address] PCP - GeneralFamily Hfuofoof14/20/20Team MemberRelationshipSpecialtyStart [place] [address] [place], [place] [id number] PCP - GeneralFamily Myrvmonf85/20/20Team MemberRelationshipSpecialtyStart Date End Date Louise Lemos MD [address] [place] [address] PCP - GeneralFamily Tsxdvgyp26/20/20 Team Status: Active Member Role Status Dates Louise Lemos MD Primary Care Provider Active Team Status: Active Member Role Status Dates Hunter Richards DO Attending Provider Active S tart: July 26, 2023 Team Status: Inactive Member Role Status Dates Hunter Richards DO Attending Provider Active S tart: July 26, 2023 End: July 25Rebeca Carlos Care ProviderActiveStart: July 26, 2023 End: July 26, 2023Team MemberRelationshipSpecialtyStart DateEnd Date Louise Lemos MD [address] [place] [address] PCP - GeneralFamily Medicine06/16/21Team MemberRelationshipSpecialtyStart DateEnd Date Louise Lemos MD [address] [place] [id number] PCP - GeneralFamily Gycdhhmu83/20/20Team MemberRelationshipSpecialtyStart Date End Date Louise Lemos MD [address] [place] [id number] PCP - GeneralFamily Wtxheicz29/20/20Team MemberRelationshipSpecialtyStart Date End Date Louise Lemos MD PCP - General06/27/09 Name Effective Dates (start - stop) Status Members No Information Team MemberRelationshipSpecialtyStart DateEnd Date Louise Lemos MD [address] [place] [id number] PCP - GeneralFamily Ckrfgfzg17/20/20Team MemberRelationshipSpecialtyStart Date End Date Louise Lemos MD [address] [place] [address] PCP - GeneralFamily Bfkntcmd54/20/20Team MemberRelationshipSpecialtyStart Date End Date Louise Lemos MD [address] [place] [address] PCP - Elzeopd37/1/20Team MemberRelationshipSpecialtyStart DateEnd Date Louise Lemos MD [address] [place] [address] PCP - Kdhuqjn33/1/20Team MemberRelationshipSpecialtyStart DateEnd Date Louise Lemos MD [address] [place] [id number] PCP - GeneralFamily Ghhctjxt49/20/20Team MemberRelationshipSpecialtyStart Date End Date Louise Lemos MD [address] [place] [address] PCP - GeneralFamily Uzicudsm00/20/20Team MemberRelationshipSpecialtyStart Date End Date Louise Lemos MD [address] [place] [address] PCP - GeneralFamily Qyrkmwgz12/20/20Team MemberRelationshipSpecialtyStart Date End Date Louise Lemos MD PCP - GeneralFamily Medicine12/15/19Team MemberRelationshipSpecialtyStart DateEnd Date Louise Lemos MD PCP - General acute hospital Medicine12/15/19Team MemberRelationshipSpecialtyStart DateEnd Louise Lemos MD PCP - General acute hospital Medicine12/15/19Team MemberRelationshipSpecialtyStart DateEnd Louise Lemos MD PCP - [facility]12/15/19 Team Status: Active Member Role/Relationship Status Dates Louise Lemos MD Primary Care Provider Active Team Status: Inactive Member Role/Relationship Status Dates Louise Lemos MD Primary Care Provider Active Start: March 04, 2025 End: March 04, 2025NicMatthew Dan ProviderActiveStart: March 04, 2025 End: March 04, 2025 Scheduled Active and Recently Administ ered Medications (unrecognized section and content) Medication Order//02/2022 0.9 % sodium chloride IV bolus 2,586 mL (COMPLETED) 2,586 mL (30 mL/kg 86.2 kg), IntraVENous, at 5,172 mL/hr, Administer over 30 Minutes, ONCE, On 10/07/21 at 1815, For 1 dose * 1853 (New Bag - Provider: Lin Arevalo RN) * 2156 (Stopped - Provider: Lin Arevalo RN) lidocaine-EPINEPHrine 1 %-1:[id number] injection 20 mL (COMPLETED) 20 mL, IntraDERmal, ONCE, 1 dose, On 10/07/21 at 1600 * 1721 (Give PPD - Provider: Alida Gallagher, CELIA) lidocaine-prilocaine (EMLA) cream (COMPLETED) Topical, ONCE, On 10/07/21 at 1600, For 1 dose, Apply to abscess region * 1557 (Given - Provider: Alida Gallagher, RN) LORazepam (ATIVAN) injection 0.5 mg (COMPLETED) 0.5 mg, IntraVENous, ONCE, 1 dose, On 10/07/21 at 1715 * 1719 (Given - Provider: Alida Gallagher, CELIA) LORazepam (ATIVAN) injection 0.5 mg (COMPLETED) 0.5 mg, IntraVENous, ONCE, 1 dose, On 10/07/21 at 1800 * 1802 (Given - Provider: Alida Gallagher RN) vancomycin (VANCOCIN) 1,500 mg in dextrose 5 % 500 mL IVPB (COMPLETED) 1,500 mg (17.4 mg/kg), IntraVENous, at 250 mL/hr, Administer over 120 Minutes, ONCE, On 10/07/21at 1615, For 1 dose * 1742 (New Bag - Provider: Alida Gallagher, RN) * 2156 (Stopped - Provider: Lin Arevalo RN) Medication Order//02/2022 0.9 % sodium chloride infusion 1,000 mL, IntraVENous, at 125 mL/hr, Administer over 8 Hours, CONTINUOUS, Starting on 10/07/21 at 1600 * 1600 (Due) Medication Order/ acetaminophen (Tylenol) tablet 975 mg (COMPLETED) 975 mg, oral, Once, On Sat03/18/24 at 1230, For 1 dose, Preprocedure, If ordered PRN for pain, nurse is permitted to administer this medication for higher pain scores based on patient preference? Yes * 1231 (Given - Provider: Betzaida Haque RN) ceFAZolin (Ancef) 2 g [...] that apply): Surgical Prophylaxis, Indications: Surgical Prophylaxis * 1230 (Due) gabapentin (Neurontin) capsule 600 mg (COMPLETED) 600 mg, oral, Once, On Sat03/18/24 at 1230, For 1 dose, Preprocedure, Capsules may be opened and sprinkled on food (eg, applesauce, orange juice, pudding * 1232 (Given - Provider: Betzaida Haque RN) povidone-iodine 5 % kit kit Topical, Once, On Sat03/18/24 at 1230, For 1 dose, Preprocedure, Nasal swab * 1230 (Due) Medication Order/ acetaminophen (Tylenol) tablet 975 mg (COMPLETED) 975 mg, oral, Once, On Sat04/07/24 at 1145, For 1 dose, Preprocedure, If ordered PRN for pain, nurse is permitted to administer this medication for higher pain scores based on patient preference? Yes * 1202 (Given - Provider: Mahogany Julio, CELIA) ceFAZolin (Ancef) 2 g [...] that apply): Surgical Prophylaxis, Indications: Surgical Prophylaxis * 1309 (Given - Provider: Juancarlos Valentino, CHAPIS-BLADE WORKER) gabapentin (Neurontin) capsule 300 mg (COMPLETED) 300 mg, oral, Once, On Sat04/07/24 at 1145, For 1 dose, Preprocedure, Capsules may be opened and sprinkled on food (eg, applesauce, orange juice, pudding * 1201 (Given - Provider: Mahogany Julio, CELIA) povidone-iodine 5 % kit kit (COMPLETED) Topical, Once, On Sat04/07/24 at 1145, For 1 dose, Preprocedure, Nasal swab * 1238 (Given - Provider: Nani Hou RN) Medication Order/ acetaminophen (Tylenol) tablet 650 mg 650 mg, [...] needed, Starting on Sat04/07/24 at 1552, Intraprocedure * 1552 (Given - Provider: Thierry Braun DPM) heparin (porcine) injection (CANCELED) As needed, Starting on Sat04/07/24 at 1343, Intraprocedure * 1343 (Given - Provider: Thierry Braun DPM - Comment: flushed through bone marrow aspiration kit) HYDROmorphone (Dilaudid) injection 0.5 mg 0.5 mg, intravenous, Every 5 min PRN, pain breakthrough, Starting on Sat04/07/24 at 1606, Recovery(only), Max total of 4 mg regardless of [...] ordered PRN for pain, nurse is permitted toadminister this medication for higher pain scores based on patient preference? Yes * 1658 (Given - Provider: Raysa Dobbs RN) oxyCODONE (Roxicodone) immediate release tablet 5 mg 5 mg, oral, Every 4 hours PRN, pain moderate (4-6), second line, Starting on Sat04/07/24 at 1606, Recovery (only), When able to take oral medications., If ordered PRN for pain, nurse is permitted toadminister this medication for higher pain scores based [...] at 1606, For 1 dose, Recovery (only) Medication Order acetaminophen (OFIRMEV) IVPB Premix 1,000 mg(Linked Group 1) 1,000 mg, intravenous, at 400 mL/hr, Administer over 15 Minutes, Every 6 hours scheduled, First dose on Sat01/27/25 at 1948, For 24 hours * 1958 (New Bag - Provider: Misa Jackson RN) * 2040 (Stop Bag - Provider: Misa Jackson RN) * 0000 (Not Given - Provider: Sarah Blood RN - Reason: Patient/family refused) * 0800 (Not Given - Provider: Yenifer Mcallister RN - Reason: Patient/family refused) * 1200 (Not Given - Provider: Yenifer Mcallister RN - Reason: Patient/family refused) diazePAM (VALIUM) injection 5 mg (COMPLETED) 5 mg, intravenous, Once, On Sat01/27/25 at 1507, For 1 dose, Look-alike/sound-alike medication - verify indication for use. * 151 (Given - Provider: Misa Jackson RN) diphenhydrAMINE (BENADRYL) injection 25 mg(Linked Group 1) 25 mg, intravenous, Every 6 hours scheduled, First dose on Sat01/27/25 at 1948, For 24 hours, Look-alike/sound-alike medication - verify indication for use. * 1955 (Given - Provider: Misa Jackson RN) * 0000 (Not Given - Provider: Sarah Blood RN - Reason: Patient/family refused) * 0800 (Not Given - Provider: Yenifer Mcallister RN - Reason: Patient/family refused) * 1200 (Not Given - Provider: Yenifer Mcallister RN - Reason: Patient/family refused) hydrOXYzine (ATARAX) tablet 25 mg (COMPLETED) 25 mg, oral, Once, On Sat01/27/25 at 1852, For 1 dose, Look-alike/sound-alike medication - verify indication for use. * 1855 (Given - Provider: Sonia Hamlin RN) magnesium sulfate IVPB 1000 mg/100 mL in dextrose 5% (10 mg/mL premix)(Linked Group 1) 1,000 mg, intravenous, at 100 mL/hr, Administer over 60 Minutes, Every 6 hours, First dose on Sat01/27/25 at 1948, For 24 hours * 2040 (New Bag - Provider: Misa Jackson RN) * 2140 (Stop Bag - Provider: Sarah Blood RN) * 0148 (Not Given - Provider: Sarah Blood RN - Reason: Patient/family refused) * 0943 (New Bag - Provider: Yenifer Mcallister RN) * 1043 (Stop Bag - Provider: Yenifer Mcallister RN) morphine injection 4 mg (COMPLETED) 4 mg, intravenous, Once, On Sat01/27/25 at 1507, For 1 dose, Look-alike/sound-alike medication - verify indication for use. * 1518 (Given - Provider: Misa Jackson RN) prochlorperazine (COMPAZINE) injection 10 mg(Linked Group 1) 10 mg, intravenous, Every 6 hours, First dose on Sat01/27/25 at 1948, For 24 hours, When administered via IV Push, do not exceed 5 mg per minute * 195 (Given - Provider: Misa Jackson RN) * 0148 (Not Given - Provider: Sarah Blood RN - Reason: Patient/family refused) * 0748 (Not Given - Provider: Yenifer Mcallister RN - Reason: Patient/family refused) * 1348 (Not Given - Provider: Yenifer Mcallister RN - Reason: Patient/family refused) sodium chloride 0.9 % bolus (COMPLETED) 1,000 mL, intravenous, at 1,000 mL/hr, Administer over 60 Minutes, Once, On Sat01/27/25 at 1507, For 1 dose * 1518 (New Bag - Provider: Misa Jackson RN) * 1719 (Stop Bag - Provider: Misa Jackson RN) sodium chloride 0.9 % flush 3 mL 3 mL, intravenous, Every 12 hours scheduled, First dose on Sat01/27/25 at 2128 * 2209 (Given - Provider: Sarah Blood, RN) * 0939 (Given - Provider: Yenifer Mcallister RN) sulfamethoxazole-trimethoprim (BACTRIM DS) 800-160 mg tablet 1 tablet (COMPLETED) 1 tablet, oral, Once, On Sat01/27/25 at 1852, For 1 dose, Indication: UTI * 1855 (Given - Provider: Sonia Hamlin RN) sulfamethoxazole-trimethoprim (BACTRIM DS) 800-160 mg tablet 1 tablet 1 tablet, oral, Every 12 hours scheduled, First dose (after last reorder) on Livia 01/28/25 at 0930, For 4 doses, Indication: UTI * 1130 (Given - Provider: Yenifer Mcallister RN - Comment: medicine came from pharmacy) Medication Order//05/2024 dextrose (GLUTOSE) 40 % gel 15 g 15 g, oral, As needed, low blood sugar, blood glucose less than 70 mg/dL, Starting on Sat01/27/25 at 2125, If patient conscious and taking PO. If blood glucose is not greater than 70 mg/dL after initial treatment, repeat treatment. dextrose 5 % (D5W) infusion 100 mL/hr, intravenous, Continuous PRN, blood glucose less than 70 mg/dL, Starting on Sat01/27/25 at 2125, For 365 days, Use immediately following dextrose 50% or glucagon treatment for patients who are unconscious or NPO. Contact prescriber for additional orders. If blood glucose is not greater than 70 mg/dL after initial treatment, repeat treatment. dextrose 50 % in water (D50W) 50% solution 25 mL 25 mL, intravenous, As needed, low blood sugar, blood glucose less than 70 mg/dL and unconscious orNPO with IV access, Starting on Sat01/27/25 at 6, Push over 1-3 minutes STAT. If conscious and not NPO, immediately follow with meal tray or high protein (7 grams) snack if tray not available. If NPO, initiate 5% dextrose in water at 100 mL/hr and contact prescriber for additional orders. If blood glucose is not greater than 70 mg/dL after initial treatment, repeat treatment. VESICANT (RED) Warning: HYPERTONIC solution. gadoteridoL (PROHANCE) injection 9.07 mmol 18.14 mL (COMPLETED) 9.07 mmol (0.1 mmol/kg 90.7 kg), intravenous, Once in imaging, contrast, MRI, Starting on Sat01/28/25 at 0446, For 1 dose, VESICANT (RED), Indications: magnetic resonance imaging * 0505 (Given - Provider: SALIMA Chun) glucagon HCL injection 1 mg 1 mg, intramuscular, As needed, low blood sugar, blood glucose less than 70 mg/dL and unconscious or NPO without IV access., Starting on Sat01/27/25 at 2126, If conscious and not NPO, immediately follow with meal tray or high protein (7Grams) snack if tray not available. If NPO, initiate IV 5% Dextr ose/Water at 100 mL/hr and contact prescriber for additional orders. If blood glucose is not greater than 70 mg/dL after initial treatment, repeat treatment. hydrOXYzine (ATARAX) tablet 25 mg 25 mg, oral, 3 times daily PRN, anxiety, Starting on Sat01/28/25 at 0731, Look-alike/sound-alike medication - verify indication for use. magnesium sulfate IVPB 2000 mg/50 mL in iso-osmotic water (40 mg/mL premix) 2,000 mg, intravenous, at 25 mL/hr, Administer over 120 Minutes, As needed, Magnesium level 1.7 to 1.9 mg/dL, or Ionized Magnesium level 0.45 to 0.5 mmol/L., Starting on Sat01/27/25 at 2126, Recheck magnesium level 4 hours after infusion complete. With each magnesium result continue the replacementorders as needed. magnesium sulfate IVPB 4000 mg/100 mL in iso-osmotic water (40 mg/mL premix) 4,000 mg, intravenous, at 25 mL/hr, Administer over 240 Minutes, As needed, Magnesium level 1.6 mg/dL or less, or Ionized Magnesium level 0.44 mmol/L or less, Starting on Sat01/27/25 at 2126, Recheckmagnesium level 4 hours after infusion complete. With each magnesium result continue the replacement orders as needed. potassium chloride (K-TAB,KLOR-CON) CR tablet 20-40 mEq(Linked Group 2) 20-40 mEq, oral, As needed, potassium supplementation, Starting on Sat01/27/25 at 2125, Progress tooral potassium replacement when patient tolerating oral intake. If dose administered, recheck potassium level 4 hours after last dose. For potassium level 3.4 to 3.8 mmol/L and GFR less than 30 mL/min or dialysis=20 mEq. For potassium level 3.1 to 3.3 mmol/L and GFR less than 30 mL/min or dialysis=30 mEq. For potassium level 3 mmol/L or less and GFR less than 30 mL/min or dialysis=40 mEq. Do not crush or chew. potassium chloride (KAYCIEL) 20 mEq/15 mL solution 20-40 mEq(Linked Group 2) 20-40 mEq, oral, As needed, potassium supplementation, Starting on Sat01/27/25 at 2125, Progress tooral potassium replacement when patient tolerating oral intake. If dose administered, recheck potassium level 4 hours after last dose. For potassium level 3.4 to 3.8 mmol/L and GFR less than 30 mL/min or dialysis=20 mEq. For potassium level 3.1 to 3.3 mmol/L and GFR less than 30 mL/min or dialysis=30 mEq. For potassium level 3 mmol/L or less and GFR less than 30 mL/min or dialysis=40 mEq. Must dilute before use - Mix in 3-8 ounces of water or juice before administration When administering in feeding tube, flush before and after per policy and monitor potassium levels sodium chloride 0.9 % flush 10 mL (COMPLETED) 10 mL, intravenous, Once in imaging, line care, MRI, Starting on Livia 01/28/25 at 0446, For 1 dose * 0505 (Given - Provider: SALIMA Chun) sodium chloride 0.9 % flush 3 mL 3 mL, intravenous, As needed, line care, before and after each intermittent use, Starting on Sat01/27/25 at 2125 sodium chloride 0.9 % infusion 20 mL/hr, intravenous, Continuous PRN, to maintain patency of lines, Starting on Sat01/27/25 at 2125, For 1 day * 0941 (New Bag - Provider: Yenifer Mcallister RN) * 1627 (Due: Order Ending - Provider: Automatic Discharge Provider - Comment: [Order ends at this time. Document the following action when infusion is complete: Stop Bag]) Order Group 1: acetaminophen (OFIRMEV) IVPB Premix 1,000 mgJump to med 1,000 mg, intravenous, at 400 mL/hr, Administer over 15 Minutes, Every 6 hours scheduled, First dose on Sat01/27/25 at 1948, For 24 hours And prochlorperazine (COMPAZINE) injection 10 mgJump to med 10 mg, intravenous, Every 6 hours, First dose on Sat01/27/25 at 1947, For 24 hours, When administered via IV Push, do not exceed 5 mg per minute And diphenhydrAMINE (BENADRYL) injection 25 mgJump to med 25 mg, intravenous, Every 6 hours scheduled, First dose on Sat01/27/25 at 1947, For 24 hours, Look-alike/sound-alike medication - verify indication for use. And magnesium sulfate IVPB 1000 mg/100 mL in dextrose 5% (10 mg/mL premix)Jump to med 1,000 mg, intravenous, at 100 mL/hr, Administer over 60 Minutes, Every 6 hours, First dose on Sat01/27/25 at 1948, For 24 hours Group 2: potassium chloride (K-TAB,KLOR-CON) CR tablet 20-40 mEqJump to med 20-40 mEq, oral, As needed, potassium supplementation, Starting on Sat01/27/25 at 6, Progress tooral potassium replacement when patient tolerating oral intake. If dose administered, recheck potassium level 4 hours after last dose. For potassium level 3.4 to 3.8 mmol/L and GFR less than 30 mL/min or dialysis=20 mEq. For potassium level 3.1 to 3.3 mmol/L and GFR less than 30 mL/min or dialysis=30 mEq. For potassium level 3 mmol/L or less and GFR less than 30 mL/min or dialysis=40 mEq. Do not crush or chew. Or potassium chloride (KAYCIEL) 20 mEq/15 mL solution 20-40 mEqJump to med 20-40 mEq, oral, As needed, potassium supplementation, Starting on Sat01/27/25 at 2126, Progress tooral potassium replacement when patient tolerating oral intake. If dose administered, recheck potassium level 4 hours after last dose. For potassium level 3.4 to 3.8 mmol/L and GFR less than 30 mL/min or dialysis=20 mEq. For potassium level 3.1 to 3.3 mmol/L and GFR less than 30 mL/min or dialysis=30 mEq. For potassium level 3 mmol/L or less and GFR less than 30 mL/min or dialysis=40 mEq. Must dilute before use - Mix in 3-8 ounces of water or juice before administration When administering in feeding tube, flush before and after per policy and monitor potassium levels Source Comments (unrecognize d section and content) In the event this informatio n is protected by the Federal Confidentiality of Alcohol and Drug Abuse Patient Records regulations: The Federal rules restrict any use of the information to criminally investigate or prosecute any alcohol or drug abuse patient.[facility] the event this information is protected by the Federal Confidentiality of Alcohol and Drug Abuse Patient Records regulations: The Federal rules restrict any use of the information to criminally investigate or prosecute any alcohol or drug abuse patient.[facility] the event this information is protected by the Federal Confidentiality of Alcohol and Drug Abuse Patient Records regulations: The Federal rules restrict any use of the information to criminally investigate or prosecute any alcohol or drug abuse patient.[facility] Goals (unrecognized section and content) Goals may be documented in a n alternate section Health Concern Goal Type Priority Status No [...] BE BASED ON THE PRIMARY CLINICAL RECORDS. [employer] provides no warranty or guarantee of the accuracy or completeness of information in this document.
[2025-03-08 16:32] LABS: Hematocrit 38.8 % (36.0-48.0); Hemoglobin 13.5 g/dL (12.0-16.0); Immature Granulocytes Abs Auto 0.02 10^3/uL (0.00-0.03); Immature Granulocytes Pct Auto 0.2 % (0.0-0.5); Lymphocytes Absolute Auto 3.0 10^3/uL (1.2-3.8); Mean Corpuscular HGB Conc 34.8 g/dL (29.9-35.2); Mean Corpuscular Hemoglobin 28.7 pg (26.7-34.0); Mean Corpuscular Volume 82.6 fL (81.0-99.0); Platelet Count 336 10^3/uL (150-450); Red Blood Count 4.70 10^6/uL (4.20-5.40); White Blood Count 10.7 10^3/uL (4.0-11.0)
[2025-03-08 16:44] LABS: Alanine Aminotransferase 28 U/L (14-59); Albumin Globulin Ratio 1.1; Albumin Level 4.0 g/dL (3.4-5.0); Alkaline Phosphatase 72 U/L (46-116); Anion Gap 12.8; Aspartate Amino Transferase 21 U/L (15-37); Blood Urea Nitrogen 11.0 mg/dL (7.0-18.0); Calcium 9.6 mg/dL (8.5-10.1); Carbon Dioxide 24.0 mmol/L (21.0-32.0); Chloride 106 mmol/L (98-107); Estimated GFR (African America >60 (>=60 mL/min/1.73m^2); Estimated GFR (Non-African Ame >60 (>=60 mL/min/1.73m^2); Globulin 3.7 g/dL; Glucose 109 mg/dL (74-106); Potassium 3.8 mmol/L (3.5-5.1); Sodium 139 mmol/L (136-145); Total Protein 7.7 g/dL (6.4-8.2)
[2025-03-08 16:47] LABS: Glucose Urine UA NEGATIVE (NEGATIVE)
[2025-03-08 17:26] LABS: Cast Seen? NONE SEEN #/LPF (NONE SEEN); Crystals Seen? None Seen #/HPF (None Seen)
== END 2025-03-08 15:58 | disposition home or self-care (01) ==
LOC: LAB 15:58
PROVIDERS: PCP Family Medicine; Visit Provider Family Medicine
DX: R30.0 Dysuria (principal)
CPT/HCPCS: 36415; 74018; 80053; 81001; 85025; 87086